=== PATIENT | female | born 1940 | race Caucasian/White ===

== ENCOUNTER → 2017-07-14 | Outpatient (CLI) | payer OTHER ==
[~2017-07-14] MED LIST: ASPCH81X PO; CALC500C70 PO; CHOL1CAP27 PO; CHOL400C7 PO; CYAN100T6 PO; CYAN30SU SL; CYM/30 PO; GABA-113 PO; GARL10007 PO; GARL400T9; GLC/500 PO; IRBE-41 PO; IRBE-43 PO; LEVO50TA6 PO; MAGNTAB4 PO; MULT-506 PO; OMEG10007 PO; POTA2.5T PO; PRLSR20 PO
--- NOTE | 2017-07-14 11:43 | DIAGNOSTIC IMAGING REPORT ---
BILATERAL LOWER EXTREMITY VENOUS DOPPLER HISTORY: DIABETIC NEUROLOGIC DIFFICULTY, FOOT PAIN COMPARISON STUDY: None. FINDINGS: There is normal compressibility, flow, and augmentation within the bilateral lower extremity deep venous systems. There is a 5.7 x 4.1 x 3.2 cm right popliteal cyst. This contains a few punctate internal echoes. IMPRESSION: No DVT within the right or left lower extremity. Electronically signed by: Torsten Pierre M.D. 07/14/2017 11:41 AM Dictated Date/Time: 07/14/2017 11:41 AM
== END | disposition home or self-care (01) ==
LOC: C.ULTRBC 10:58
PROVIDERS: ATTEND Orthopaedic Surgery Sports Medicine
DX: E13.49 Other specified diabetes mellitus with other diabetic neurological complication (principal); M79.672 Pain in left foot

== ENCOUNTER → 2017-09-04 | Day surgery (SDC) | payer OTHER ==
[2017-08-10 09:48] VITALS: BMI 27.0
--- NOTE | 2017-08-10 10:31 | PAT Medication Instructions ---
Service Date Aug 10, 2017. Current Home Medication List Aspirin (Aspirin Chewable), 81 MG PO QPM Calcium/Vitamin D (Os-Nam 500 Plus D), 1 TAB PO QAM Cholecalciferol (D3), 1 CAP PO QAM Cyanocobalamin (B-12), 1 DOSE SL QAM Duloxetine HCl (Cymbalta), 1 CAP PO QAM Fish Oil ([place]-3), 1 CAP PO QAM Gabapentin (Neurontin), 2 TAB PO BID Garlic (Garlic), 1 CAP PO QAM Irbesartan-Hydrochlorothiazide (Avalide), 1 TAB PO QAM Levothyroxine Sodium (Levothyroxine Sodium), 1 TAB PO QAM Metformin Hcl (Glucophage), 500 MG PO BID Multivitamin (Multivitamin), 1 TAB PO QAM Omeprazole (Prilosec), 20 MG PO QAM Potassium Gluconate (Potassium Gluconate), 1 TAB PO QAM Medication Instructions For Your Scheduled Surgery - Hold the following medications 2 weeks prior to surgery: Garlic (Garlic), 1 CAP PO QAM Fish Oil ([place]-3), 1 CAP PO QAM - Hold the following medications 48 hours prior to surgery: Metformin Hcl (Glucophage), 500 MG PO BID - Hold the following medications the morning of surgery: Multivitamin (Multivitamin), 1 TAB PO QAM Calcium/Vitamin D (Os-Nam 500 Plus D), 1 TAB PO QAM Cholecalciferol (D3), 1 CAP PO QAM Cyanocobalamin (B-12), 1 DOSE SL QAM Irbesartan-Hydrochlorothiazide (Avalide), 1 TAB PO QAM Potassium Gluconate (Potassium Gluconate), 1 TAB PO QAM - Take the following medications the morning of surgery with a sip of water OTHERWISE NOTHING TO EAT OR DRINK AFTER MIDNIGHT: Duloxetine HCl (Cymbalta), 1 CAP PO QAM Gabapentin (Neurontin), 2 TAB PO BID Levothyroxine Sodium (Levothyroxine Sodium), 1 TAB PO QAM Omeprazole (Prilosec), 20 MG PO QAM - Take the following medications as scheduled the night before surgery: Gabapentin (Neurontin), 2 TAB PO BID Aspirin (Aspirin Chewable), 81 MG PO QPM If you have any questions please call us at [phone] or [phone] or [phone]
[2017-08-10 11:10] LABS: BASO % 0.9 %; BASO ABS # 0.05 K/uL (0-0.2); COMPLETE YES; EOS % 2.9 %; IG% 0.2 %; LYMPH % 31.4 %; LYMPH ABS # 1.82 K/uL (1.2-3.4); MEAN CELL VOLUME 88.9 fL (80-100); MEAN CORPUSCULAR HGB CONC 33.8 g/dl (32-36); MEAN PLATELET VOLUME 9.4 fL (7.4-10.4); MONO % 7.1 %; NEUT % 57.5 %; PLATELET COUNT 263 K/uL (130-400); WHITE BLOOD COUNT 5.79 K/uL (4.8-10.8)
[2017-08-10 11:12] LABS: URINE APPEARANCE CLEAR (CLEAR); URINE BILIRUBIN NEG (NEG); URINE COLOR YELLOW; URINE NITRITE NEG (NEG); URINE PH 5.5 (4.5-7.5); URINE SPECIFIC GRAVITY 1.014 (1.000-1.030); UROBILINOGEN NEG (NEG)
[2017-08-10 11:17] LABS: MANUAL MICROSCOPIC REQUIRED? NO; REVIEW REQ? NO
--- NOTE | 2017-08-10 11:22 | DIAGNOSTIC IMAGING REPORT ---
CHEST 2 VIEWS ROUTINE HISTORY: 77 years-old Female PAT preadmission exam without acute chest complaints reported. COMPARISON: Chest radiographs 09/08/2013 TECHNIQUE: PA and lateral views of the chest FINDINGS: Cardiomediastinal and hilar silhouettes are within normal limits. There is atherosclerosis of the aorta. No pneumothorax or pleural effusion or lobar airspace consolidation. Subsegmental lingular atelectasis is again seen. Lungs are mildly hyperinflated with diaphragm flattening. Degenerative changes are seen within the spine and shoulders. IMPRESSION: No acute cardiopulmonary process. The above report was generated using voice recognition software. It may contain grammatical, syntax or spelling errors. Electronically signed by: Robert Hoffman M.D. 08/10/2017 11:21 AM Dictated Date/Time: 08/10/2017 11:20 AM
[2017-08-10 11:27] LABS: ESTIMATED AVERAGE GLUCOSE 126 mg/dl; HA1C FLAG Normal (Normal); PARTIAL THROMBOPLASTIN RATIO 1.4; PROTHROMBIN TIME (PATIENT) 10.3 SECONDS (9.0-12.0)
[2017-08-10 11:51] LABS: BUN/CREATININE RATIO 19.1 (10-20); CALCIUM 9.6 mg/dl (8.5-10.1); CREATININE 1.1 mg/dl (0.60-1.20); POTASSIUM 4.3 mmol/L (3.5-5.1)
[~2017-09-04] VITALS: Ht 165.1 cm; Wt 75.9 kg
[~2017-09-04] MED LIST changes: +ATROPINE SULFATE 0.1 MG/ML 5ML SYR IV PRN; +BACITRACIN 50000 UNIT VIAL IR ONE; +BUPIVACAINE 0.25% 30 ML VIAL ONE; +CEFAZOLIN 2000MG IV PUSH 10 ML IV SCH; -CHOL400C7 PO; -CYAN100T6 PO; +DEXAMETHASONE SOD INJ 4 MG/ML VIAL ONE; +ENOX40IN SQ; +EpHEDrine SULFATE INJ 50 MG/ML AMP IV PRN; +EpHEDrine SULFATE INJ 50 MG/ML AMP ONE; +EpINEphrine INJ 1MG/ML AMP 1 MG/ML AMP ONE; +FENTANYL CITRATE INJ 50 MCG/1 ML 2 ML VIAL IV PRN; +FENTANYL CITRATE INJ 50 MCG/1 ML 2 ML VIAL ONE; -GARL400T9; +HYDROmorphone INJ 1 MG/ML SYR IV PRN; -IRBE-43 PO; +LACTATED RINGER'S 1000ML 1,000 ML IV SCH; +LIDOCAINE HCL 2% 2 ML VIAL (20MG/ML) ONE; -MAGNTAB4 PO; +MIDAZOLAM HCL 1 MG/ML 2ML VIAL ONE; +ONDANSETRON INJ 2 MG/ML 2 ML VIAL IV PRN; +ONDANSETRON INJ 2 MG/ML 2 ML VIAL ONE; +OXYC-57 PO; +OXYCODONE/ACETAMINOPHEN 5-325 TAB PO PRN; +PHENYLEPHRINE 100MCG/ML 5ML SYR ONE; +PROM25TA9 PO; +PROMETHAZINE HCL INJ 6.25 MG in SODIUM CHLORIDE 0.9% 50ML 50 ML IV PRN; +PROPOFOL IV EMULSION 10 MG/ML 20 ML VIAL IV ONE
--- NOTE | 2017-09-04 00:13 | HISTORY & PHYSICAL EXAMINATION ---
DATE OF ADMISSION: 09/04/2017 SUBJECTIVE AND CHIEF COMPLAINT: Left foot pain. HISTORY OF PRESENT ILLNESS: This is a patient who has had a long history of left foot pain and deformity which has worsened over previous years. She has been treated conservatively; however, she has failed all conservative management. She is now being set up for surgical treatment with mid foot fusions. PAST MEDICAL HISTORY: Hypercholesterolemia, sleep apnea, diabetes, history of low back and neck problems, acid reflux. SOCIAL HISTORY: The patient denies alcohol and tobacco use. PAST SURGICAL HISTORY: Back surgery x3, cataract surgery and hysterectomy. ALLERGIES: No known drug allergies. CURRENT MEDICATIONS: Gabapentin 300 mg 1 p.o. b.i.d., aspirin 81 mg p.o. daily, levothyroxine 50 mcg 1 p.o. daily, omeprazole 20 mg 1 p.o. daily, potassium supplement daily, irbesartan/HCTZ 150/12.5 mg one-half tab p.o. daily, garlic supplement p.o. daily, vitamin D3 1000 International Units p.o. daily, vitamin B12 500 mcg p.o. daily, multivitamin p.o. daily, fish oil supplement 200 mg daily, duloxetine 30 mg p.o. daily, metformin 500 mg 1 p.o. b.i.d., Keflex 500 mg q.i.d. and Bactrim DS p.o. b.i.d. FAMILY HISTORY: Noncontributory. OBJECTIVE PHYSICAL EXAMINATION: GENERAL: The patient is alert and oriented x3. She is in no acute distress. She is a well-dressed, well-nourished 77-year-old female. Her affect is appropriate. CARDIOVASCULAR: Heart has a regular rhythm and rate without murmurs. LUNGS: Clear to auscultation bilateral. LYMPHATICS: No evidence of any swollen lymph nodes. MUSCULOSKELETAL: The patient has an antalgic gait favoring the left lower extremity. On inspection of the left lower extremity, the patient has a pes planus deformity with an abducted mid foot. There appears to be bony exostosis at the medial aspect of the mid foot. With palpation, she has tenderness along the first and second tarsometatarsal joints, also along the second toe. She has decreased range of motion and strength secondary to pain. Dorsalis pedis, posterior tib pulse +1/4. Cap refill less than 2 seconds. SKIN: There are no scars, rashes or ulcers noted. X-RAY EXAMINATION: Multiple views of the left foot demonstrate severe osteoarthritic changes of the first and second tarsometatarsal joints, also the first navicular cuneiform joint. The patient noted to have a second hammertoe. ASSESSMENT AND DIAGNOSES: 1. Left mid foot osteoarthritis. 2. Pes planus. 3. Left foot second hammertoe. PLAN: Above assessment was discussed with the patient. At this time, it was recommended the patient undergo a left foot medial column reconstruction with fusion of the first tarsometatarsal joint, fusion of the second tarsometatarsal joint, fusion of the first navicular cuneiform joint, possible second navicular cuneiform joint fusion, possible talonavicular joint fusion and also a second toe DuVries arthroplasty. All potential risks, benefits, complications, alternatives and rehab have been discussed with the patient, and at this time, she wishes to proceed with the surgery as indicated. She will be scheduled for the surgery on 09/04/2017.
--- NOTE | 2017-09-04 07:47 | History & Physical Bridge Note ---
H&P Re-Evaluation Bridge Note: I have examined the patient, reviewed the History & Physical and in the interval since the performance of the History & Physical I have noted the following changes of clinical significance: No changes noted
[2017-09-04 07:58] VITALS: BP 157/83; PULSE 83; TEMP 36.7; O2SAT 97; Ht 165.1 cm; Wt 75.9 kg
[2017-09-04 08:53] LABS: PARTIAL THROMBOPLASTIN RATIO 1.3; PROTHROMBIN TIME (PATIENT) 10.5 SECONDS (9.0-12.0)
--- NOTE | 2017-09-04 13:00 | Discharge Instructions ---
Discharge Instructions Date of Service Sep 04, 2017. Admission Reason for Admission: Left Ankle/Foot Osteoarthritis, Hammer Toe(S) Discharge Discharge Diagnosis / Problem: left foot osteoarthritis Discharge Goals Goal(s): Decrease discomfort, Improve function Activity Recommendations Activity Limitations: per Instructions/Follow-up section Weightbearing Status: Left non-weightbearing . Instructions / Follow-Up Instructions / Follow-Up ACTIVITY RECOMMENDATIONS: Limitations: No weight bearing to affected limb at all times. SPECIAL CARE INSTRUCTIONS: * Start Lovenox (blood thinning medication) on 09.05.17. You should take it for 14 days and any continuation will be discussed at your first post operative visit. * Some drainage onto the dressing is normal and is no cause for alarm. * Some swelling is natural especially after walking. * When resting, keep your foot elevated above the level of your heart. * Call [facility] if you notice: -Increased drainage -Fever over 101 degrees F -Severe constant pain BANDAGE: * Leave bandage/cast in place unless otherwise directed. * Keep bandage/cast dry at all times. FOLLOW UP VISIT WITH DR. RIVERA If appointment is not already scheduled: Please call [facility] after you get home today to schedule a follow-up appointment for [address] Rivera at . Current Hospital Diet Patient's current hospital diet: Discharge Diet Recommended Diet: Regular Diet Procedures Procedures Performed: Left Foot Medial Column Fusion 1st Tarsometatarsal Joint; Medial Column Fusion 2nd Tarsometatarsal Joint; 1st Navicular-Cuneiform, 2nd Navicular-Cuneiform;Duvries Procedure; Percutaneous Achillies Tendon Lengthening Pending Studies Studies pending at discharge: no Laboratory Results Hemoglobin A1c Test 08/10/17 10:52 Range/Units Estimated Average Glucose 126 mg/dl Hemoglobin A1c 6.0 H 4.5-5.6 % Medical Emergencies . Who to Call and When: Medical Emergencies: If at any time you feel your situation is an emergency, please call 911 immediately. . Non-Emergent Contact Non-Emergency issues call your: Surgeon Call Non-Emergent contact if: temperature is above 101, your pain is not controlled, your pain is worsening . "Provider Documentation" section prepared by Delfin Scott. . VTE Core Measure Inpt VTE Proph given/why not?: SCD's
--- NOTE | 2017-09-04 13:02 | [facility] Post Operative Brief Note ---
Immediate Operative Summary Operative Date Sep 04, 2017. Pre-Operative Diagnosis Left mid foot osteoarthritis; Medial Column collapse; Pes planus; Left foot second hammertoe Post-Operative Diagnosis Left midfoot Medial collapse; DJD 1/2/3 TMT Joints; DJD 1/2/3 Naviculocuneiform Joints; DJD 1/2/3 Intercuneiform Joints; Achilles contracture; 2nd Hammertoe;Talonavicular Exostoses; Painful Pes Planus Procedure(s) Performed Left Foot Medial Column Reconstruction; Fusions 1/2/3 Tarsometatarsal Joints; 1st/2nd/3rd Navicular-Cuneiform Fusions; Fusions 1st/2nd/3rd Intercuneiform Joints; Cheilectomy Talonavicular Joint; Second Toe Duvries Arthroplasty; Percutaneous Achillies Tendon Lengthening Surgeon Dr. Cordero Crane Hooker Surgeon(s) Delfin Scott PA-C Estimated Blood Loss 15 ml Findings See Dict Specimens none per surgeon Drains None Anesthesia GLMA w/ popliteal block Complication(s) None Disposition Recovery Room / PACU
--- NOTE | 2017-09-04 13:26 | DIAGNOSTIC IMAGING REPORT ---
L FOOT MIN 3 VIEWS ROUTINE HISTORY: 77 years-old Female post op postoperative exam. ORIF of the left foot COMPARISON: Spot fluoroscopic images of the left foot of same day. TECHNIQUE: 3 views of the left foot FINDINGS: Fine bony detail obscured by overlying casting material. ORIF changes of the first and second tarsal metatarsal joints, navicular and cuneiform articulations with satisfactory alignment. There is a K wire present traversing the second digit within the distal, middle and proximal phalanx traversing the metatarsal head with distal tip medial to the metatarsal diaphysis. Moderate degenerative changes are noted throughout the midfoot and forefoot. There is spurring about the calcaneus. IMPRESSION: Postsurgical changes of the left foot as above. The above report was generated using voice recognition software. It may contain grammatical, syntax or spelling errors. Electronically signed by: Robert Hoffman M.D. 09/04/2017 1:25 PM Dictated Date/Time: 09/04/2017 1:22 PM
--- NOTE | 2017-09-04 13:55 | Anesthesiology Progress Note ---
Anesthesia Post Op Note Date & Time Sep 04, 2017 at 13:55 Vital Signs Pain Intensity: 0 Vital Signs Past 12 Hours Date Time Temp Pulse Resp B/P (MAP) Pulse Ox O2 Delivery O2 Flow Rate FiO2 09/04/17 13:14 36.7 102 24 134/88 (90) 93 Room Air Oxymask 09/04/17 12:57 107 14 09/04/17 12:57 107 14 97 09/04/17 12:56 127/62 09/04/17 12:52 102 12 96 09/04/17 12:52 101 12 09/04/17 12:51 115/69 09/04/17 12:47 92 20 09/04/17 12:47 92 20 98 09/04/17 12:46 104/57 09/04/17 12:42 91 109/58 96 09/04/17 12:42 36.2 92 16 109/58 97 Oxymask 8 09/04/17 12:42 91 09/04/17 07:58 36.7 83 20 157/83 (107) 97 Room Air Notes Mental Status: alert / awake / arousable, participated in evaluation Pt Amnestic to Procedure: Yes Nausea / Vomiting: adequately controlled Pain: adequately controlled Airway Patency, RR, SpO2: stable & adequate BP & HR: stable & adequate Hydration State: stable & adequate Anesthetic Complications: no major complications apparent Block working in pacu
[2017-09-04 14:00] VITALS: BP 119/70; PULSE 91; TEMP 36.7; O2SAT 94
--- NOTE | 2017-09-04 14:17 | OPERATIVE REPORT ---
DATE OF OPERATION: 09/04/2017 PREOPERATIVE DIAGNOSES: 1. Left foot medial column collapse. 2. Degenerative joint disease of the first, second, and third tarsometatarsal joints. 3. Degenerative joint disease of the first, second and third naviculocuneiform joints. 4. Degenerative joint disease of the first, second and third intercuneiform joints. 5. Achilles contracture. 6. Second hammertoe. POSTOPERATIVE DIAGNOSES: 1. Left foot medial column collapse. 2. Degenerative joint disease of the first, second, and third tarsometatarsal joints. 3. Degenerative joint disease of the first, second and third naviculocuneiform joints. 4. Degenerative joint disease of the first, second and third intercuneiform joints. 5. Achilles contracture. 6. Second hammertoe. 7. Talonavicular exostosis PROCEDURE: 1. Left foot medial column reconstruction with Arthrex locked plating. 2. Mid foot fusions of the first, second, and third tarsometatarsal joints. 3. Mid foot fusions of the first, second and third naviculocuneiform joints. 4. Mid foot fusions of the first, second and third intercuneiform joints. 5. Second toe DuVries arthroplasty. 6. Percutaneous tendon Achilles lengthening. 7. Talonavicular cheilectomy. SURGEON: Jacob Cordero DO. PRICER: Delfin Scott PA-C, who was present for patient positioning, sterile prep and drape, management of retractors and instruments. He was present through the critical portions of the case including wound closure, application of sterile dressing and transport of the patient to recovery. ANESTHESIA: General LMA with popliteal block. SPECIMENS: None. DRAINS: None. COMPLICATIONS: None. BLOOD LOSS: 15 mL PERTINENT HISTORY: This is a 77-year-old female who has had progressive chronic and worsening degenerative arthritis throughout the left mid foot and arch. Over the last several years she has noticed progressive worsening collapse of the arch with severe pain and disability. She had difficulty with activities of daily living with any type of weightbearing. Shoe wear has been very difficult to fit and she failed the use of anti-inflammatories, shoe inserts, custom orthotics, steroid injections, use of a brace and failure of physician recommended home exercises. Radiographs and CT scan demonstrates severe mid foot collapse of the left foot with severe degenerative arthritis of the mid foot involving the first, second and third tarsometatarsal, first, second and third naviculocuneiform, the first, second and third intercuneiform joints with a progressive pes planus. The patient had been scheduled for surgery as indicated. All potential risks, benefits, complications, alternatives, rehab, potential for incomplete relief of symptoms, need for further surgery, DVT, PE, , persistent pain, swelling, scarring, weakness, neurovascular injury, wound complications, hardware failure, nonunion, malunion were discussed with the patient. The patient decided to proceed with the procedure as indicated. DESCRIPTION OF PROCEDURE: After popliteal block was administered, the patient was taken to the operative suite, placed supine on the operating room table. After reviewing consent and identification of proper operative site, patient anesthetized, LMA was placed. Tourniquet was placed high on the left thigh over cast padding. Left lower extremity was then sterilely prepped and draped in usual fashion, elevated and exsanguinated with an Esmarch bandage, tourniquet inflated to 325 mmHg. Next, the foot was held in neutral dorsiflexion and a 3-part percutaneous 11 blade scalpel incision was made to perform a fractional lengthening of the Achilles tendon. After this percutaneous fractional lengthening of the Achilles tendon was completed, these incisions were then irrigated with sterile normal saline followed by closure of these incisions with skin satya. Next, the 15 blade scalpel was used to make an incision along the medial aspect of the left hindfoot extending into the forefoot from the skin inferior to the medial malleolus extending over the medial column of the foot to the first metatarsal head. Next, the skin was then incised to the level of subcutaneous tissue. Meticulous hemostasis was achieved with electrocautery followed by retraction and protection of the plantar medial branch of the saphenous vein. Next, the retinaculum was then incised along the skin incision revealing the tibialis anterior, which was then whipstitched with a #2 Ultrabraid suture both proximal and distal. The tendon was then cut between the 2 whipstitched heads of the tendon and then retracted and protected. Next, the joint capsule was then incised from the first naviculocuneiform to the first tarsometatarsal and then extending over the medial aspect of the first metatarsal. Next, the joint capsules were then carefully sharply elevated superiorly and inferiorly with 15 blade scalpel revealing the medial joints. Large osteophytes were then resected using a large Valentines saw over the first tarsometatarsal and the first naviculocuneiform joint. Next, the Aguilar elevator was then used to elevate the soft tissue and the neurovascular bundle between the first and second metatarsals. A Hohmann retractor was placed superiorly and another was placed inferiorly. Next, the first tarsometatarsal and second tarsometatarsal joints were then opened with a 15 blade scalpel followed by curettage of the joint with small curette and rongeur. Next, the third tarsometatarsal joint was then opened and then similarly prepared using a small curette and rongeur. Next, the intercuneiform joints were then carefully incised with 15 blade scalpel and the joint was then prepped using curettage with a small curette and rongeur. We irrigated copiously with sterile normal saline. Next, the first, second, and third naviculocuneiform joints were then opened with a 15 blade scalpel and then prepared using a curette and rongeur until the subchondral bone was then identified. This was then followed by use of a Valentines saw to make a corrective osteotomy cut of the first tarsometatarsal joint slightly plantarflexing the joint surface and then the final irrigation with sterile normal saline was performed followed by provisional pinning of the joints in corrected alignment with plantar flexion of the first ray and medial column and correction of the abductus deformity which had occurred. Upon viewing under AP and lateral C-arm projections medial arch pattern was restored and abductus deformity was resolved. Next, Arthrex medial column reconstruction plate was then provisionally pinned to the medial aspect of the medial column and a single titanium fully threaded 3.5 mm cancellous screw was then drilled out the medial column from the first metatarsal into the first cuneiform and into navicular bone under live fluoroscopic assistance. This compressed and stabilized the medial column. Next, a medial column plate was then fixed with nonlocking screws x2 and then after satisfactory alignment and fixation was achieved with axial compression performed manually, the locking screws then placed to lock the medial column including the first metatarsal, first cuneiform and the navicular including the second and third cuneiforms, the first, second and third naviculocuneiform and the first, second and third metatarsals into the fusion construct as noted above. Next, alignment and fixation was then assessed using C-arm fluoroscopy. Stable mid foot fusions in multiple locations with medial column satisfactory reconstructed. Next, a bone graft removed from the drill bit and some of the resected osteophytes were also retrieved in place into the mid foot fusion sites. Also noted to be a large exostosis of the talonavicular joint, which was then resected with a rongeur. Therefore, after this cheilectomy had been performed, this residual bone was then packed into the mid foot fusion sites after it was morselized with a rongeur. The tibialis anterior was then reapproximated using #2 Ultrabraid sutures and the medial periosteum and joint capsule was then closed using 2-0 Vicryl. This was used to close over the plate. Next, the dermis was closed using buried interrupted 3-0 Vicryl and skin was then closed using 4-0 nylon sutures. Next, a 15 blade scalpel was used to make a transverse incision over the second toe PIP joint. This incision was deepened through the skin, extensor mechanism and capsule. Small ellipse of tissue was then excised sharply with a 15 blade scalpel. The medial and lateral collateral ligaments were sacrificed with a 15 blade scalpel and then using a bone biting rongeur, distal aspect of the proximal phalanx and second toe was then resected. The wound was irrigated with sterile normal saline and a 0.045 inch K wire was driven out the tip of the second toe in a retrograde fashion, placed under live fluoroscopic assistance into the proximal phalanx and second metatarsal. The residual aspect of the pin was then bent, cut and capped with a small Jergens ball. The incision was then irrigated once again with sterile normal saline followed by closure with 4-0 nylon suture. Next, a sterile compressive forefoot dressing was applied as well as a bulky Luis Denny plaster splint held in neutral dorsiflexion. The tourniquet was released. The patient was awakened and taken to recovery in stable condition. I attest to the content of the Intraoperative Record and any orders documented therein. Any exception s are noted below.
[2017-09-04 14:30] VITALS: BP 114/60; PULSE 93; TEMP 36.6; O2SAT 97
--- NOTE | 2017-09-04 14:30 | DIAGNOSTIC IMAGING REPORT ---
INTRAOPERATIVE RADIOGRAPHS CLINICAL HISTORY: Left foot surgery. Fluoroscopy time: 44 seconds. FINDINGS: 2 spot fluoroscopic views of the left foot are presented. A pin transfixes the second toe. There is extensive postoperative change identified along the medial aspect of the foot involving the tarsal bones as well as the first and second metatarsals. A buttress plate is present along the medial tarsometatarsal junction with numerous cortical lag screws in place. The orthopedic hardware is grossly intact. IMPRESSION: Extensive postoperative change in the left foot as above. See operative report for detailed findings. Electronically signed by: Brigido Valiente M.D. 09/04/2017 2:29 PM Dictated Date/Time: 09/04/2017 2:27 PM
[2017-09-04 15:00] VITALS: BP 121/73; PULSE 92; TEMP 36.6; O2SAT 96
== END | disposition home or self-care (01) ==
LOC: C.ACU 07:06
PROVIDERS: ATTEND Orthopaedic Surgery Sports Medicine
DX: M19.072 Primary osteoarthritis, left ankle and foot (principal); M21.42 Flat foot [pes planus] (acquired), left foot; M20.42 Other hammer toe(s) (acquired), left foot; M67.02 Short Achilles tendon (acquired), left ankle; M85.872 Other specified disorders of bone density and structure, left ankle and foot; E78.00 Pure hypercholesterolemia, unspecified; E11.9 Type 2 diabetes mellitus without complications; K21.9 Gastro-esophageal reflux disease without esophagitis; G47.30 Sleep apnea, unspecified; Z90.710 Acquired absence of both cervix and uterus; Z98.41 Cataract extraction status, right eye; I10 Essential (primary) hypertension; E03.9 Hypothyroidism, unspecified; Z86.718 Personal history of other venous thrombosis and embolism; Z98.1 Arthrodesis status; Z85.820 Personal history of malignant melanoma of skin; Z79.82 Long term (current) use of aspirin; K44.9 Diaphragmatic hernia without obstruction or gangrene

== ENCOUNTER 2017-11-13 20:44 | Inpatient (IN) | payer OTHER ==
[~2017-11-13] VITALS: Ht 162.6 cm; Wt 75.0 kg
[~2017-11-13 20:44] MED LIST changes: -ATROPINE SULFATE 0.1 MG/ML 5ML SYR IV PRN; -BACITRACIN 50000 UNIT VIAL IR ONE; -BUPIVACAINE 0.25% 30 ML VIAL ONE; -CEFAZOLIN 2000MG IV PUSH 10 ML IV SCH; -DEXAMETHASONE SOD INJ 4 MG/ML VIAL ONE; -ENOX40IN SQ; -EpHEDrine SULFATE INJ 50 MG/ML AMP IV PRN; -EpHEDrine SULFATE INJ 50 MG/ML AMP ONE; -EpINEphrine INJ 1MG/ML AMP 1 MG/ML AMP ONE; -FENTANYL CITRATE INJ 50 MCG/1 ML 2 ML VIAL IV PRN; -FENTANYL CITRATE INJ 50 MCG/1 ML 2 ML VIAL ONE; -HYDROmorphone INJ 1 MG/ML SYR IV PRN; -LACTATED RINGER'S 1000ML 1,000 ML IV SCH; -LIDOCAINE HCL 2% 2 ML VIAL (20MG/ML) ONE; -MIDAZOLAM HCL 1 MG/ML 2ML VIAL ONE; -ONDANSETRON INJ 2 MG/ML 2 ML VIAL IV PRN; -ONDANSETRON INJ 2 MG/ML 2 ML VIAL ONE; -OXYCODONE/ACETAMINOPHEN 5-325 TAB PO PRN; -PHENYLEPHRINE 100MCG/ML 5ML SYR ONE; -PROMETHAZINE HCL INJ 6.25 MG in SODIUM CHLORIDE 0.9% 50ML 50 ML IV PRN; -PROPOFOL IV EMULSION 10 MG/ML 20 ML VIAL IV ONE
[2017-11-13] MEDS ORDERED: PIPERACILLIN/TAZOBACTAM 3.375 GM/100ML D5W IV STA (21:00)
[2017-11-13] MEDS ORDERED: SODIUM CHLORIDE 0.9% 500ML 500 ML IV STA (21:00)
[2017-11-13] MEDS ORDERED: VANCOMYCIN INJ 1,500 MG in SODIUM CHLORIDE 0.9% 500ML 500 ML IV STA (21:00)
--- NOTE | 2017-11-13 21:17 | EMERGENCY ROOM VISIT NOTE ---
History Report prepared by Selina: Martell Elias Under the Supervision of: Dr. Art Lunsford M.D. First contact with patient: 20:52 Chief Complaint: INFECTION Stated Complaint: L FOOT INFECTION History of Present Illness The patient is a 77 year old female who presents to the Emergency Room with complaints of worsening left foot infection that began 2 days ago. She rates the pain an 8/10 in severity. She states that she had reconstructive surgery consisting of left foot osteoarthritis, pes planus, and left foot second hammertoes [address] Consuelo [place] [facility]. Patient has associated symptoms of pus, erythema, fever (did not take temperature) and swelling. She denies being on blood thinners. She takes a baby aspirin daily. Patient adds that she had her left foot sutures removed 6 weeks ago. She adds that the incision site opened up 2 days ago. She denies nausea, vomiting, chest pain, and painful urination. She states that she took ibuprofen for her pain but it did not resolve the symptoms. Patient is diabetic and states her levels were 134 this morning. Source of History: patient Onset: 2 days ago Position: foot (left) Symptom Intensity: 8/10 Timing: worsening Associated Symptoms: + fevers, No chest pain, No nausea, No vomiting Note: Patient has swelling, pus, and erythema. She denies painful urination. Review of Systems See HPI for pertinent positives and negatives. A total of ten systems were reviewed and were otherwise negative. Past Medical & Surgical Medical Problems: (1) Diabetes (2) Foot infection (3) Osteoarthritis of left foot (4) Pes planus (5) Vertigo Surgical Problems: (1) Postoperative state Family History No pertinent family medical history. Social History Smoking Status: Never Smoker Marital Status: Housing Status: lives with family Occupation Status: retired Current/Historical Medications Scheduled Aspirin (Aspirin Chewable), 81 MG PO QPM Calcium/Vitamin D (Os-[place]am 500 Plus D), 1 TAB PO QAM Cholecalciferol (D3), 1 CAP PO QAM Cyanocobalamin (B-12), 1 DOSE SL QAM Duloxetine HCl (Cymbalta), 1 CAP PO QAM Fish Oil ([place]-3), 1 CAP PO QAM Gabapentin (Neurontin), 2 TAB PO BID Garlic (Garlic), 1 CAP PO QAM Irbesartan-Hydrochlorothiazide (Avalide), 0.5 TAB PO QAM Levothyroxine Sodium (Levothyroxine Sodium), 1 TAB PO QAM Metformin Hcl (Glucophage), 500 MG PO BID Multivitamin (Multivitamin), 1 TAB PO QAM Omeprazole (Prilosec), 20 MG PO QAM Potassium Gluconate (Potassium Gluconate), 1 TAB PO QAM Scheduled PRN Promethazine Hcl (Phenergan), 25 MG PO Q6H PRN for Nausea Allergies Coded Allergies: No Known Allergies (Unverified , 09/04/17) Physical Exam Vital Signs Date Time Temp Pulse Resp B/P (MAP) Pulse Ox O2 Delivery O2 Flow Rate FiO2 11/13/17 21:52 102 11/13/17 21:43 97 110/91 11/13/17 20:46 36.7 107 18 137/74 95 Room Air Physical Exam GENERAL: Awake, alert, in no distress HENT: Normocephalic, atraumatic. Oropharynx unremarkable. EYES: Normal conjunctiva. Sclera non-icteric. NECK: Supple. No nuchal rigidity. FROM. No JVD. RESPIRATORY: Clear to auscultation. CARDIAC: Regular rate, normal rhythm. Extremities warm and well perfused. Pulses equal. ABDOMEN: Soft, non-distended. No tenderness to palpation. No rebound or guarding. No masses. RECTAL: Deferred. MUSCULOSKELETAL: Chest examination reveals no tenderness. The back is symmetrical on inspection without obvious abnormality. There is no CVA tenderness to palpation. No joint edema. LOWER EXTREMITIES: Left foot - 10cm area of erythema and warmth. No crepitus. 5cm wound dehiscence with purulent eschar. Calves are equal size bilaterally and non-tender. No edema. No discoloration. NEURO: Normal sensorium. No sensory or motor deficits noted. SKIN: No rash or jaundice noted. Medical Decision & Procedures ER Provider Diagnostic Interpretation: Radiology results as stated below per my review and radiologist interpretation: L FOOT MIN 3 VIEWS ROUTINE CLINICAL HISTORY: cellulitis, s/p foot surgery COMPARISON: 09/04/2017 DISCUSSION: Annual removal of the pin traversing the phalanges and metatarsals the second toe. Extensive operative changes consistent with partial fusion of the tarsal and metatarsal region. Mild soft tissue edema. No well-defined destructive process. There is no evidence for soft tissue swelling. IMPRESSION: Postoperative and degenerative change. Mild soft tissue edema. No well-defined acute bony abnormality. The above report was generated using voice recognition software. It may contain grammatical, syntax or spelling errors. Electronically signed by: Hayder Miller M.D. 11/13/2017 9:23 PM Laboratory Results 11/13/17 21:15 Red Blood Count 4.95, Mean Corpuscular Volume 86.9, Mean Corpuscular Hemoglobin 29.1, Mean Corpuscular Hemoglobin Concent 33.5, Mean Platelet Volume 9.6, Neutrophils (%) (Auto) 78.7, Lymphocytes (%) (Auto) 13.1, Monocytes (%) (Auto) 7.3, Eosinophils (%) (Auto) 0.4, Basophils (%) (Auto) 0.3, Neutrophils # (Auto) 12.71, Lymphocytes # (Auto) 2.12, Monocytes # (Auto) 1.18, Eosinophils # (Auto) 0.07, Basophils # (Auto) 0.05 11/13/17 21:15 Test 11/13/17 21:15 11/13/17 21:33 White Blood Count 16.17 K/uL (4.8-10.8) Red Blood Count 4.95 M/uL (4.2-5.4) Hemoglobin 14.4 g/dL (12.0-16.0) Hematocrit 43.0 % (37-47) Mean Corpuscular Volume 86.9 fL (80-100) Mean Corpuscular Hemoglobin 29.1 pg (25-34) Mean Corpuscular Hemoglobin Concent 33.5 g/dl (32-36) Platelet Count 266 K/uL (130-400) Mean Platelet Volume 9.6 fL (7.4-10.4) Neutrophils (%) (Auto) 78.7 % Lymphocytes (%) (Auto) 13.1 % Monocytes (%) (Auto) 7.3 % Eosinophils (%) (Auto) 0.4 % Basophils (%) (Auto) 0.3 % Neutrophils # (Auto) 12.71 K/uL (1.4-6.5) Lymphocytes # (Auto) 2.12 K/uL (1.2-3.4) Monocytes # (Auto) 1.18 K/uL (0.11-0.59) Eosinophils # (Auto) 0.07 K/uL (0-0.5) Basophils # (Auto) 0.05 K/uL (0-0.2) RDW Standard Deviation 44.1 fL (36.4-46.3) RDW Coefficient of Variation 13.9 % (11.5-14.5) Immature Granulocyte % (Auto) 0.2 % Immature Granulocyte # (Auto) 0.04 K/uL (0.00-0.02) Anion Gap 8.0 mmol/L (3-11) Estimated GFR () 51.9 Estimated GFR (Non- 44.8 BUN/Creatinine Ratio 21.9 (10-20) Calcium Level 9.7 mg/dl (8.5-10.1) Total Bilirubin 0.6 mg/dl (0.2-1) Direct Bilirubin 0.2 mg/dl (0-0.2) Aspartate Amino Transf (AST/SGOT) 23 U/L (15-37) Alanine Aminotransferase (ALT/SGPT) 35 U/L (12-78) Alkaline Phosphatase 152 U/L (45-117) Total Protein 7.8 gm/dl (6.4-8.2) Albumin 3.9 gm/dl (3.4-5.0) Lipase 521 U/L (73-393) Lactic Acid Level 2.0 mmol/L (0.4-2.0) Laboratory results reviewed by me Medications Administered Medications (Trade) Dose Ordered Sig/Shannon Route Start Time Stop Time Status Last Admin Dose Admin Vancomycin HCl 1500 mg/Sodium Chloride 530 ml @ 200 mls/hr ONE STAT IV 11/13/17 21:00 11/13/17 23:38 DC 11/13/17 21:00 200 MLS/HR Piperacillin Sod/ Tazobactam Sod (Zosyn Iv) 3.375 gm NOW STAT IV 11/13/17 21:00 11/13/17 21:04 DC 11/13/17 22:53 3.375 GM Sodium Chloride 500 ml @ 999 mls/hr Q31M STAT IV 11/13/17 21:00 11/13/17 21:30 DC 11/13/17 21:00 999 MLS/HR ECG Indication: other (Foot swelling) Rate (beats per minute): 104 Rhythm: normal sinus Findings: no acute ischemic change, other (Normal axis. Poor baseline artifact. ) Change: no significant change (08/10/17) ED Course 2099: The patient was evaluated in room B11. A complete history and physical exam was performed. 2119: Upon reexamination, the patient will be further evaluated. I discussed the test results and treatment plan with her. The patient will be evaluated for further management. Medical Decision I reviewed the patient's past medical history, medications, and the nursing notes as described above. Differential Diagnosis: Cellulitis, osteomyelitis, abscess The patient is a 77-year-old woman with a past medical history of diabetes who presents emergency Department with worsening left foot redness, swelling, pain in the setting of having reconstructive surgery for left foot OA, pedis planus and left foot second hammertoe done by Dr. Cordero in August per hpi. Arrival the patient is in no acute distress, afebrile with stable vital signs. Her left foot has a 10 cm area of erythema and warmth, with a 5 cm area of apparent wound dehiscence with purulent eschar. No crepitus induration or fluctuance. Case was discussed with Dr. Cordero who was motion designer for [facility], agrees with plan for admission for IV abx. Recommends medicine admission given medical comorbidities. He will be available for patient consultation over the weekend. Labs notable for WBC of 16. Blood cultures drawn. X-ray negative for osseous involvement. She was treated with broad-spectrum antibiotics with vancomycin and Zosyn in the setting of diabetes. Case was discussed with [facility] will admit the patient for further management. Medication Reconcilliation Current Medication List: was personally reviewed by me Blood Pressure Screening Patient's blood pressure: Normal blood pressure Blood pressure disposition: Did not require urgent referral Consults Time Called: 2115 Consulting Physician: Dr. Consuelo DENNIS Returned Call: [phone] I discussed the patient with Dr. Consuelo DENNIS will evaluate the patient for further treatment. Impression Primary Impression: Cellulitis Scribe Attestation The scribe's documentation has been prepared under my direction and personally reviewed by me in its entirety. I confirm that the note above accurately reflects all work, treatment, procedures, and medical decision making performed by me. Departure Information Dispostion Being Evaluated By Hospitalist Referrals BRUNO MERRITT M.D. (PCP) Forms HOME CARE DOCUMENTATION FORM, IMPORTANT VISIT INFORMATION, WORK / SCHOOL INSTRUCTIONS Patient Instructions My [facility]
--- NOTE | 2017-11-13 21:25 | DIAGNOSTIC IMAGING REPORT ---
L FOOT MIN 3 VIEWS ROUTINE CLINICAL HISTORY: cellulitis, s/p foot surgery COMPARISON: 09/04/2017 DISCUSSION: Annual removal of the pin traversing the phalanges and metatarsals the second toe. Extensive operative changes consistent with partial fusion of the tarsal and metatarsal region. Mild soft tissue edema. No well-defined destructive process. There is no evidence for soft tissue swelling. IMPRESSION: Postoperative and degenerative change. Mild soft tissue edema. No well-defined acute bony abnormality. The above report was generated using voice recognition software. It may contain grammatical, syntax or spelling errors. Electronically signed by: Hayder Miller M.D. 11/13/2017 9:23 PM Dictated Date/Time: 11/13/2017 9:22 PM
[2017-11-13 21:34] LABS: BASO % 0.3 %; BASO ABS # 0.05 K/uL (0-0.2); EOS % 0.4 %; EOS ABS # 0.07 K/uL (0-0.5); HEMOGLOBIN 14.4 g/dL (12.0-16.0); IG# 0.04 K/uL (0.00-0.02); LYMPH % 13.1 %; LYMPH ABS # 2.12 K/uL (1.2-3.4); MEAN CELL VOLUME 86.9 fL (80-100); MEAN CORPUSCULAR HEMOGLOBIN 29.1 pg (25-34); MEAN CORPUSCULAR HGB CONC 33.5 g/dl (32-36); MEAN PLATELET VOLUME 9.6 fL (7.4-10.4); MONO % 7.3 %; MONO ABS # 1.18 K/uL (0.11-0.59); NEUT % 78.7 %; NEUT ABS # 12.71 K/uL (1.4-6.5); PLATELET COUNT 266 K/uL (130-400); RED CELL DISTRIBUTION WIDTH CV 13.9 % (11.5-14.5); RED CELL DISTRIBUTION WIDTH SD 44.1 fL (36.4-46.3); WHITE BLOOD COUNT 16.17 K/uL (4.8-10.8)
[2017-11-13 21:50] LABS: ALBUMIN 3.9 gm/dl (3.4-5.0); ALT/SGPT 35 U/L (12-78); BLOOD UREA NITROGEN 26 mg/dl (7-18); CALCIUM 9.7 mg/dl (8.5-10.1); CARBON DIOXIDE 29 mmol/L (21-32); CREATININE 1.18 mg/dl (0.60-1.20); GLUCOSE 115 mg/dl (70-99); LIPASE 521 U/L (73-393); POTASSIUM 4.2 mmol/L (3.5-5.1); SODIUM 135 mmol/L (136-145)
[2017-11-13 21:53] LABS: ALKALINE PHOSPHATASE 152 U/L (45-117); AST/SGOT 23 U/L (15-37); TOTAL PROTEIN 7.8 gm/dl (6.4-8.2)
[2017-11-13] MEDS ORDERED: DEXTROSE 50% 50 ML SYR IV PRN (23:00)
[2017-11-13] MEDS ORDERED: GLUCOSE 10 TABS/TUBE PO PRN (23:00)
[2017-11-13] MEDS ORDERED: GLUCOSE 40% GEL 15 GM TUBE PO PRN (23:00)
[2017-11-13] MEDS ORDERED: TRAMADOL HCL 50 MG TAB PO PRN (23:00)
[2017-11-13] MEDS ORDERED: ONDANSETRON INJ 2 MG/ML 2 ML VIAL IV PRN (23:00)
[2017-11-13] MEDS ORDERED: GLUCAGON FOR INJ 1 MG VIAL SQ PRN (23:00)
[2017-11-13 23:40] VITALS: BP 127/76; PULSE 101; TEMP 37.5; O2SAT 97; Ht 162.6 cm; Wt 75.0 kg
[2017-11-13] MEDS ORDERED: VANCOMYCIN CONSULT ACTIVE PRN (23:48)
[2017-11-14] MEDS ORDERED: PATIENT'S HEIGHT AND/OR WEIGHT NEEDED SCH (00:15)
[2017-11-14] MEDS: SODIUM CHLORIDE 0.9% 1000ML 1,000 ML IV SCH ×2 (00:33→15:33)
[2017-11-14] MEDS ORDERED: NURSING DECISION MEDICATION ORDER SCH (01:00)
[2017-11-14] MEDS ORDERED: PIPERACILL/TAZOBAC CONSULT ACTIVE PRN (01:15)
--- NOTE | 2017-11-14 01:27 | HISTORY & PHYSICAL EXAMINATION ---
DATE OF ADMISSION: 11/13/2017 TIME: 11:05 p.m. HISTORY OF PRESENT ILLNESS: The patient is a pleasant 77-year-old female with a history of diabetes, hypertension, dyslipidemia, and DVT, presenting with increasing leg foot swelling and drainage x2 days. Primary care is Dr. Cordero for ortho. The patient underwent a left foot reconstructive surgery on 09/04/[address] Cordero and was discharged to home. Her last followup visit with Dr. Cordero was last week and according to the patient, everything was looking fine. Starting yesterday, the patient started to note increased swelling on the left foot, especially on the wound site and also increased seepage of serosanguineous fluid. She denies having fevers, chills, nausea, vomiting, chest pain, shortness of breath, dizziness. At the ER, the patient was received afebrile, but was tachycardic at 107 and white count of 16.17. X-ray of the left foot did not show any signs of bony destruction, but did show soft tissue edema. She was given vancomycin and Zosyn at the ER and was referred to hospitalist for admission. When I examined the patient, she reports that her pain is about 4/10 on the left foot. Denies having any active shortness of breath, chest pain, nausea, vomiting, dizziness or any other symptoms. She does report some left shoulder pain, which started once and she was not able to ambulate properly with the left foot swelling and is using more upper body to ambulate. She was in a wheelchair after the foot surgery, and in the last week has been trying to use a cane. REVIEW OF SYSTEMS: Ten systems reviewed and negative except for the ones mentioned above. PAST MEDICAL HISTORY: Diabetes, on metformin; hypertension; dyslipidemia; DVT 20 years ago. MEDICATIONS: Metformin 500 twice a day, gabapentin 600 mg b.i.d., aspirin 81 mg daily, losartan/hydrochlorothiazide 50/12.5 half tablet daily, fish oil daily, calcium daily, vitamin D daily, B12 daily, Cymbalta 30 mg daily, levothyroxine 50 mcg daily, omeprazole 20 mg daily, potassium daily. PAST SURGICAL HISTORY: Aside from the foot surgery, she also had lumbar spine fusion in 2012 and cataract removal. PERSONAL AND SOCIAL HISTORY: She denies smoking, alcohol or drug use. Lives with . FAMILY HISTORY: Cancer, sister. Diabetes, mother. Heart disease, none. Stroke, mother. Stroke, sister. Thyroid disorder, daughter. PHYSICAL EXAMINATION: VITAL SIGNS: Blood pressure is 110/91, pulse rate of 102, temperature 36.7, respiratory rate of 14, saturating 95% on room air. GENERAL: The patient is awake, alert, oriented x3, not in distress, speaks in sentences. No accessory muscle use. HEAD AND NECK: Atraumatic and normocephalic. Normal pupils. Full EOMs. No icterus. [place] conjunctivae. ENT: Grossly normal. NECK: No JVD, no lymphadenopathy, no thyromegaly. HEART: Normal rate. Regular rhythm. Good S1, S2. No murmurs. LUNGS: Clear breath sounds bilaterally. No rales or wheezes. ABDOMEN: Nondistended, normal bowel sounds, soft, nontender. EXTREMITIES: On the left foot showing a surgical incision site on the medial dorsal aspect with some opening and seepage of scant, yellow drainage. There is surrounding erythema, moderate swelling and no tenderness up to the ankle borders . There is no calf swelling, pain, warmth or tenderness as well as to the thigh and the knee. The right lower leg is essentially normal. NEUROLOGIC: Essentially normal except for decreased sensation in the bilateral feet. LABORATORY STUDIES: White count is 16.17, hemoglobin is 14.4, platelet count is 266. Chemistry: Sodium 135, potassium 4.2, BUN 26, creatinine 1.18, lactic acid 2.0, AST noted, ALT 35. lipase 521. Blood cultures pending. Foot x-ray, postoperative and degenerative change, mild soft tissue edema, no acute bony abnormality. ASSESSMENT AND PLAN: This is a very pleasant 77-year-old female with a history of diabetes, hypertension, dyslipidemia, deep venous thrombosis, foot surgery on the left, presenting with increased left swelling and drainage from the wound site. 1. Possible sepsis secondary to left foot wound infection with cellulitis status post left foot surgery on 09/04/2017. At this time, follow up blood cultures and wound cultures. For now, empiric vancomycin and Zosyn. IV fluids and p.r.n. analgesics. We will avoid non-steroidal anti-inflammatory drugs because of the patient's low GFR. We will consult orthopedic service for possible further imaging and intervention including drainage. She will be kept n.p.o. after midnight for possible procedures in the morning. 2. Bilateral shoulder pain, more on the left than on the right, possibly musculoskeletal strain, but we will perform an x-ray to rule out a fracture. Ice packs for now. 3. Diabetes type 2, on metformin, hold that for now, and we will place her on insulin sliding scale and diabetic protocol. 4. Hypertension, stable. Continue losartan/hydrochlorothiazide, hold aspirin for possible procedures. 5. Dyslipidemia, on fish oil. 6. Deep venous thrombosis history [address] We will place her on heparin subcutaneous q. 8 for deep venous thrombosis prophylaxis. 7. The patient is full code per patient. DISPOSITION: Pending. PT, OT ordered. Usually lives at home with her , wanted to be discharged to home when medically stable. FOLLOWUP: Follow up with PCP and Dr. Cordero for ortho. LEVON
[2017-11-14] MEDS: PIPERACILL/TAZOBAC IV 3.375 GM in DEXTROSE 5% 100ML IV SCH ×3 (04:11→19:30)
[2017-11-14] MEDS: LEVOTHYROXINE 50 MCG TAB PO SCH (05:51)
[2017-11-14] MEDS: INSULIN ASPART 100 UNITS/ML 3 ML PEN SC SCH ×4 (05:55→20:34)
[2017-11-14] MEDS: ACETAMINOPHEN 325 MG TAB PO PRN (06:09)
--- NOTE | 2017-11-14 06:14 | DIAGNOSTIC IMAGING REPORT ---
L SHOULDER MIN 2 VIEWS ROUTINE CLINICAL HISTORY: 77 years-old Female presenting with R/O FRACTURE. TECHNIQUE: Internal rotation, external rotation, and Grashey views of the left shoulder were obtained. COMPARISON: Correlation made to chest x-ray from 2013. FINDINGS: Glenohumeral and acromioclavicular joints congruent. Degenerative changes noted at the acromioclavicular joint. There is suggestion of narrowing of the acromiohumeral interval with irregularity of the greater tuberosity suggesting chronic impingement of the rotator cuff. No acute fracture or acute malalignment. Visualized portion of the left hemithorax within normal limits. IMPRESSION: 1. Degenerative changes of the acromioclavicular joint and evidence of chronic impingement of the rotator cuff. 2. No acute osseous injury of the left shoulder. Electronically signed by: Maynor Bryant M.D. 11/14/2017 6:13 AM Dictated Date/Time: 11/14/2017 6:11 AM
[2017-11-14 06:52] VITALS: BP 122/58; PULSE 103; TEMP 37.3; O2SAT 93
[2017-11-14] MEDS ORDERED: INSULIN ASPART 100 UNITS/ML 3 ML PEN SC SCH (07:00)
[2017-11-14] MEDS: CYANOCOBALAMIN 500 MCG TAB (VIT B-12) PO SCH (07:23)
[2017-11-14] MEDS: MULTIVITAMIN TAB PO SCH (07:23)
[2017-11-14] MEDS: CALCIUM 600MG + VIT D 400 IU TAB PO SCH (07:24)
[2017-11-14] MEDS: OMEGA-3 (PURIFIED FISH OIL) 1 GM CAP PO SCH (07:24)
[2017-11-14] MEDS: PANTOprazole SOD 40 MG TAB PO SCH (07:24)
[2017-11-14] MEDS: HYDROCHLOROTHIAZIDE 25 MG TAB PO SCH (07:25)
[2017-11-14] MEDS: DULOXETINE (CYMBALTA) 30 MG CAP PO SCH (07:25)
[2017-11-14] MEDS: CHOLECALCIFEROL 1000 INTER.UNIT TAB PO SCH (07:25)
[2017-11-14] MEDS: IRBESARTAN 150 MG TAB PO SCH (07:25)
[2017-11-14] MEDS: GABAPENTIN 300 MG CAP PO SCH ×2 (07:26→20:35)
[2017-11-14] MEDS ORDERED: NON-FORMULARY MEDICATION (Potassium Gluconate 1 TAB) PO SCH (09:00)
[2017-11-14] MEDS ORDERED: NON-FORMULARY MEDICATION (Garlic 1 CAP) PO SCH (09:00)
[2017-11-14] MEDS: HEPARIN SOD 5000 UNIT/0.5 ML CARP SQ SCH ×3 (09:11→23:47)
--- NOTE | 2017-11-14 10:28 | ORTHOPEDIC CONSULTATION REPORT ---
DATE OF CONSULTATION: 11/14/2017 CHIEF COMPLAINT: Left foot pain and swelling. HISTORY OF PRESENT ILLNESS: This is a 77-year-old female patient known to Dr. Cordero complaining of a 2-day onset of increased left foot redness, pain and swelling. The patient is status post a left foot reconstructive type surgery with Achilles lengthening back in August of 2017. She noticed these symptoms approximately 2 days ago and have been progressively getting worse. She reported to an urgent care center where she was referred to [facility] for evaluation. The patient was seen in the Emergency Department and was deemed to have an infection of her foot. Cultures from the ER show gram pos cocci. She was admitted by medicine team and she is currently on vancomycin and Zosyn and we are being consulted for orthopedic care. REVIEW OF SYSTEMS: Other than the foot symptoms, the patient denies any shortness of breath, chest pain, nausea, vomiting or any other joint complaints. SOCIAL HISTORY: The patient lives at home with her . She is independent. She is a nonsmoker and non-alcohol user. PAST SURGICAL HISTORY: Most recently left foot surgery. She has a hx of back surgery, hysterectomy and cataract surgery. PAST MEDICAL HISTORY: Hypothyroidism, diabetes mellitus, hypertension, hypercholesterolemia, and a history of DVT. MEDICATIONS: Metformin 500 mg b.i.d., gabapentin 600 mg b.i.d., aspirin 81 mg daily, losartan/hydrochlorothiazide 50/12.5 half tablet daily, fish oil daily, calcium daily, vitamin D daily, vitamin B12 daily, Cymbalta 30 mg daily, levothyroxine 50 mcg daily, omeprazole 20 mg daily, and potassium daily. FAMILY HISTORY: Significant for cancer, diabetes mellitus, coronary artery disease and thyroid disease. ALLERGIES: No known drug allergies. PHYSICAL EXAMINATION: VITAL SIGNS: Currently, temperature is 37.3, pulse is 103, blood pressure is 122/58, and pulse ox is 93 on room air. GENERAL: This is a well-developed, well-nourished 77-year-old female in no acute distress. She is alert and oriented x3. She is pleasant. HEENT: Normocephalic, atraumatic. Extraocular motions are intact. Pupils are equal and reactive to light. HEART: Regular rate and rhythm with no murmurs appreciated. LUNGS: Clear. ABDOMEN: Soft and nontender. EXTREMITIES: Left foot incision shows some black margins. She has got some scant drainage throughout the entire incision. The whole foot is mild to moderately erythematic with +2 swelling throughout the foot. She is able to wiggle her toes. Pulses are intact. Sensation is intact in her left foot. She has no calf tenderness, no calf swelling and ankles without swelling. Range of motion of the ankles normal. Symptoms only seem to be isolated to her left foot. No pain at the knee. LABORATORY COUNTS ON ADMISSION: White blood cell count is 16.17, glucose is 140. INR was 1.0. DIAGNOSES: Left foot infection. She also has a history of hypothyroidism, diabetes mellitus, hypertension, hypercholesterolemia, and a history of a deep venous thrombosis. PLAN: The patient will be admitted under medicine service. We will continue to follow her cultures from the Emergency Room. We will give her adequate pain control and continue her preadmission medications. We will have Dr. Cordero follow up with her today for a probable left foot washout and I&D tomorrow in the operating room. She will be n.p.o. after midnight for I and D left foot in the morning. Addendum: I examined the patient and reviewed the above consult and agree with the recommendations of Mr Suraj WALTON Will schedule for I and D left foot infection tomorrow AM. Sania DOS SANTOS
--- NOTE | 2017-11-14 10:40 | DIAGNOSTIC IMAGING REPORT ---
L FOOT MIN 3 VIEWS ROUTINE CLINICAL HISTORY: 77 years-old Female presenting with r/o osteo. TECHNIQUE: Frontal, oblique, and lateral views of the left foot were obtained. COMPARISON: 11/13/2017 and 09/04/2017. FINDINGS: Postsurgical changes of extensive plate and screw fixation of the midfoot and first and second metatarsals bridging the first and second tarsometatarsal articulations. Transarticular screw is noted extending from the base of the first metatarsal to the navicular. No gross evidence of hardware complication. Osteopenia noted. Diffuse soft tissue swelling along the medial aspect at the level of the midfoot unchanged. No new fracture or worsen malalignment. No gross evidence of osteolysis allowing for osteopenia. Linear radiolucency along the medial foot is unchanged from prior. Os peroneum noted. Prominent enthesophytes at the insertion of the Achilles tendon and origin of the plantar fascia. Atherosclerosis. IMPRESSION: 1. Soft tissue swelling most prominently along the medial aspect the level of the midfoot. Questionable subcutaneous emphysema along the medial aspect of the midfoot, although this is unchanged from prior radiograph. 2. Extensive internal fixation as detailed above. No gross evidence of hardware complication. 3. Allowing for osteopenia, no radiographic evidence of osteomyelitis. If there is continuing clinical concern, noncontrast MR could be obtained. Electronically signed by: Maynor Bryant M.D. 11/14/2017 10:39 AM Dictated Date/Time: 11/14/2017 10:33 AM
--- NOTE | 2017-11-14 14:12 | Progress Note ---
Internal Med Progress Note Date of Service: Nov 14, 2017. Provider Documentation: SUBJECTIVE: Patient seen and examined. Patient aware of plans for surgery possibly tomorrow for left foot. Patient denies acute pain of foot at time of exam and denied other concerns or symptoms OBJECTIVE: Exam: General- no acute distress Eyes- EOMI Neck- midline trachea, no JVD Lungs- CTABL Heart- RRR Abdomen- soft, nontender, + bowel sounds Extremities- left foot in dressing ASSESSMENT & PLAN: history of diabetes, hypertension, dyslipidemia, deep venous thrombosis, foot surgery on the left, presenting with increased left swelling and drainage from the wound site. 1. Possible sepsis secondary to left foot wound infection with cellulitis status post left foot surgery on 09/04/2017. Blood culture 11/13/17 pending results Wound culture 11/14/17 MODERATE GRAM POSITIVE COCCI Continue Vancomycin and Zosyn Orthopedics planning left foot washout and I&D tomorrow in the operating room. She will be n.p.o. after midnight for probable surgery in the morning 2. Bilateral shoulder pain, more on the left than on the right, X ray: Degenerative changes of the acromioclavicular joint and evidence of chronic impingement of the rotator cuff. No acute osseous injury of the left shoulder Ice packs if needed 3. Diabetes type 2 hold metformin continue sliding scale insulin, fingerstick glucose 4. Hypertension, stable. Continue losartan/hydrochlorothiazide, hold aspirin for possible procedures. 5. Dyslipidemia, on fish oil. 6. Deep venous thrombosis history 20 years ago. heparin subcutaneous q. 8 for deep venous thrombosis prophylaxis. Full Code Vital Signs: Date Time Temp Pulse Resp B/P (MAP) Pulse Ox O2 Delivery O2 Flow Rate FiO2 11/14/17 08:22 Room Air 11/14/17 06:52 37.3 103 18 122/58 (79) 93 Room Air 11/14/17 00:30 Room Air 11/13/17 23:42 78 126/97 11/13/17 23:40 Room Air 11/13/17 23:40 37.5 101 18 127/76 (93) 97 Room Air 11/13/17 21:52 102 11/13/17 21:43 97 110/91 11/13/17 20:46 36.7 107 18 137/74 95 Room Air Lab Results: Results Past 24 Hours Test 11/13/17 21:15 11/13/17 21:33 11/14/17 00:53 11/14/17 05:53 Range/Units White Blood Count 16.17 4.8-10.8 K/uL Red Blood Count 4.95 4.2-5.4 M/uL Hemoglobin 14.4 12.0-16.0 g/dL Hematocrit 43.0 37-47 % Mean Corpuscular Volume 86.9 80-100 fL Mean Corpuscular Hemoglobin 29.1 25-34 pg Mean Corpuscular Hemoglobin Concent 33.5 32-36 g/dl Platelet Count 266 130-400 K/uL Mean Platelet Volume 9.6 7.4-10.4 fL Neutrophils (%) (Auto) 78.7 % Lymphocytes (%) (Auto) 13.1 % Monocytes (%) (Auto) 7.3 % Eosinophils (%) (Auto) 0.4 % Basophils (%) (Auto) 0.3 % Neutrophils # (Auto) 12.71 1.4-6.5 K/uL Lymphocytes # (Auto) 2.12 1.2-3.4 K/uL Monocytes # (Auto) 1.18 0.11-0.59 K/uL Eosinophils # (Auto) 0.07 0-0.5 K/uL Basophils # (Auto) 0.05 0-0.2 K/uL RDW Standard Deviation 44.1 36.4-46.3 fL RDW Coefficient of Variation 13.9 11.5-14.5 % Immature Granulocyte % (Auto) 0.2 % Immature Granulocyte # (Auto) 0.04 0.00-0.02 K/uL Sodium Level 135 136-145 mmol/L Potassium Level 4.2 3.5-5.1 mmol/L Chloride Level 98 98-107 mmol/L Carbon Dioxide Level 29 21-32 mmol/L Anion Gap 8.0 3-11 mmol/L Blood Urea Nitrogen 26 7-18 mg/dl Creatinine 1.18 0.60-1.20 mg/dl Estimated GFR () 51.9 Estimated GFR (Non- 44.8 BUN/Creatinine Ratio 21.9 10-20 Random Glucose 115 70-99 mg/dl Calcium Level 9.7 8.5-10.1 mg/dl Total Bilirubin 0.6 0.2-1 mg/dl Direct Bilirubin 0.2 0-0.2 mg/dl Aspartate Amino Transf (AST/SGOT) 23 15-37 U/L Alanine Aminotransferase (ALT/SGPT) 35 12-78 U/L Alkaline Phosphatase 152 45-117 U/L Total Protein 7.8 6.4-8.2 gm/dl Albumin 3.9 3.4-5.0 gm/dl Lipase 521 73-393 U/L Lactic Acid Level 2.0 0.4-2.0 mmol/L Bedside Glucose 136 140 70-90 mg/dl Test 11/14/17 06:34 11/14/17 12:07 Range/Units Prothrombin Time 10.7 9.0-12.0 SECONDS Prothromb Time International Ratio 1.0 0.9-1.1 Bedside Glucose 156 70-90 mg/dl Microbiology Results 11/13/17 Blood Culture, Received Pending 11/13/17 Blood Culture, Received Pending 11/14/17 Gram Stain - Final, Resulted 11/14/17 Wound Culture, Resulted Pending
[2017-11-14] MEDS: VANCOMYCIN INJ 1,250 MG in SODIUM CHLORIDE 0.9% 250ML 250 ML IV SCH (14:39)
--- NOTE | 2017-11-14 14:41 | Pharmacy Progress Note ---
Pharmacy Antibiotic Consult Date of Service: Nov 14, 2017. Pharmacy Dosing Scope Pharmacy is consulted to initiate vancomycin IV dosing therapy, order appropriate labs and adjust drug dose/frequency. Subjective The patient is a 77 year old female admitted on Nov 13, 2017 at 22:50. Objective Height (Feet): 5 Height (Inches): 4.00 Weight (Kilograms): 75.000 Lab Results (24hrs): Test 11/13/17 21:15 11/13/17 21:33 11/14/17 05:53 11/14/17 06:34 White Blood Count 16.17 K/uL (4.8-10.8) Red Blood Count 4.95 M/uL (4.2-5.4) Hemoglobin 14.4 g/dL (12.0-16.0) Hematocrit 43.0 % (37-47) Mean Corpuscular Volume 86.9 fL (80-100) Mean Corpuscular Hemoglobin 29.1 pg (25-34) Mean Corpuscular Hemoglobin Concent 33.5 g/dl (32-36) Platelet Count 266 K/uL (130-400) Mean Platelet Volume 9.6 fL (7.4-10.4) Neutrophils (%) (Auto) 78.7 % Lymphocytes (%) (Auto) 13.1 % Monocytes (%) (Auto) 7.3 % Eosinophils (%) (Auto) 0.4 % Basophils (%) (Auto) 0.3 % Neutrophils # (Auto) 12.71 K/uL (1.4-6.5) Lymphocytes # (Auto) 2.12 K/uL (1.2-3.4) Monocytes # (Auto) 1.18 K/uL (0.11-0.59) Eosinophils # (Auto) 0.07 K/uL (0-0.5) Basophils # (Auto) 0.05 K/uL (0-0.2) RDW Standard Deviation 44.1 fL (36.4-46.3) RDW Coefficient of Variation 13.9 % (11.5-14.5) Immature Granulocyte % (Auto) 0.2 % Immature Granulocyte # (Auto) 0.04 K/uL (0.00-0.02) Sodium Level 135 mmol/L (136-145) Potassium Level 4.2 mmol/L (3.5-5.1) Chloride Level 98 mmol/L (98-107) Carbon Dioxide Level 29 mmol/L (21-32) Anion Gap 8.0 mmol/L (3-11) Blood Urea Nitrogen 26 mg/dl (7-18) Creatinine 1.18 mg/dl (0.60-1.20) Estimated GFR () 51.9 Estimated GFR (Non- 44.8 BUN/Creatinine Ratio 21.9 (10-20) Random Glucose 115 mg/dl (70-99) Calcium Level 9.7 mg/dl (8.5-10.1) Total Bilirubin 0.6 mg/dl (0.2-1) Direct Bilirubin 0.2 mg/dl (0-0.2) Aspartate Amino Transf (AST/SGOT) 23 U/L (15-37) Alanine Aminotransferase (ALT/SGPT) 35 U/L (12-78) Alkaline Phosphatase 152 U/L (45-117) Total Protein 7.8 gm/dl (6.4-8.2) Albumin 3.9 gm/dl (3.4-5.0) Lipase 521 U/L (73-393) Lactic Acid Level 2.0 mmol/L (0.4-2.0) Bedside Glucose 140 mg/dl (70-90) Prothrombin Time 10.7 SECONDS (9.0-12.0) Prothromb Time International Ratio 1.0 (0.9-1.1) Test 11/14/17 12:07 Bedside Glucose 156 mg/dl (70-90) Assessment & Plan Assessment * 77 yo F with L foot infection. X-ray w/ no well-defined bony abnormalities. Possible I&D in OR 11/15 * PMH: L foot reconstructive surgery Aug 2017 * Antibiotics: Zosyn, vancomycin - appropriate for now * Cultures: 11/14 L foot drainage with GPC on Gram stain * Renal function: SCr very slightly elevated from baseline - significant dysfunction not anticipated. eCrCL 48 mL/min Vancomycin * Goal vancomycin trough 15-20 mcg/mL for now. May consider decrease to 10-15 mcg/mL pending culture results and assuming no bone involvement * Vancomycin 20 mg/kg load administered * Will continue with 16 mg/kg IV dosed at slightly longer than anticipated t1/2 of 15 hr * Trough prior to 4th overall dose Plan * Vancomycin 1250 mg IV q16h * Trough 11/15 @ 1930 Pharmacy will continue to follow and will adjust dose/frequency as necessary. Thank you
[2017-11-14] MEDS ORDERED: NURSING VERBAL MED ORDER ONE (15:00)
--- NOTE | 2017-11-14 15:02 | Orthopedic Progress Note ---
Orthopedic Progress Note Date of Service Nov 14, 2017. Subjective Reports: pain controlled w PO medications, Denies: chest pain, SOB, nausea / vomiting, light headedness, calf pain Additional Notes: Pain controlled left foot. Objective calves soft nontender, N/V intact, capillary refill less than 2 sec., A&O x3, toes mobile Moderate serosanguineous discharge medial foot. Local erythema medial foot. No foul odor. DP/PT intact. Foot warm. Date Time Temp Pulse Resp B/P (MAP) Pulse Ox O2 Delivery O2 Flow Rate FiO2 11/14/17 08:22 Room Air 11/14/17 06:52 37.3 103 18 122/58 (79) 93 Room Air 11/14/17 00:30 Room Air 11/13/17 23:42 78 126/97 11/13/17 23:40 Room Air 11/13/17 23:40 37.5 101 18 127/76 (93) 97 Room Air 11/13/17 21:52 102 11/13/17 21:43 97 110/91 11/13/17 20:46 36.7 107 18 137/74 95 Room Air Laboratory Results 24 Hours: Test 11/13/17 21:15 11/14/17 06:34 White Blood Count 16.17 K/uL Red Blood Count 4.95 M/uL Hemoglobin 14.4 g/dL Hematocrit 43.0 % Mean Corpuscular Volume 86.9 fL Mean Corpuscular Hemoglobin 29.1 pg Mean Corpuscular Hemoglobin Concent 33.5 g/dl Platelet Count 266 K/uL Mean Platelet Volume 9.6 fL Neutrophils (%) (Auto) 78.7 % Lymphocytes (%) (Auto) 13.1 % Monocytes (%) (Auto) 7.3 % Eosinophils (%) (Auto) 0.4 % Basophils (%) (Auto) 0.3 % Neutrophils # (Auto) 12.71 K/uL Lymphocytes # (Auto) 2.12 K/uL Monocytes # (Auto) 1.18 K/uL Eosinophils # (Auto) 0.07 K/uL Basophils # (Auto) 0.05 K/uL Prothromb Time International Ratio 1.0 Prothrombin Time 10.7 SECONDS Assessment & Plan Assessment: Left foot deep infection with partial wound dehiscence. Plan: NPO after MN Plan for I and D left foot deep infection in AM Continue IV antibiotics
[2017-11-14 15:11] VITALS: BP 121/77; PULSE 97; TEMP 38.4; O2SAT 95
[2017-11-14 15:30] VITALS: TEMP 37.1
[2017-11-14 22:49] VITALS: BP 131/73; PULSE 103; TEMP 37.6; O2SAT 94
[2017-11-15] VITALS (9 sets, daily range): BP systolic 97–126; BP diastolic 60–69; PULSE 78–99; TEMP 36.7–37.3; O2SAT 92–98
[2017-11-15] MEDS ORDERED: NURSING VERBAL MED ORDER ONE ×2 (03:45→12:00)
[2017-11-15] MEDS: SODIUM CHLORIDE 0.9% 1000ML 1,000 ML IV SCH ×2 (04:03→15:24)
[2017-11-15] MEDS: VANCOMYCIN INJ 1,250 MG in SODIUM CHLORIDE 0.9% 250ML 250 ML IV SCH ×2 (04:03→19:19)
[2017-11-15] MEDS: PIPERACILL/TAZOBAC IV 3.375 GM in DEXTROSE 5% 100ML IV SCH ×3 (04:03→19:18)
[2017-11-15] MEDS: LEVOTHYROXINE 50 MCG TAB PO SCH (05:54)
[2017-11-15] MEDS ORDERED: INSULIN ASPART 100 UNITS/ML 3 ML PEN SC SCH (06:00)
[2017-11-15 06:31] LABS: CREATININE 1.02 mg/dl (0.60-1.20)
[2017-11-15] MEDS ORDERED: BACITRACIN 50000 UNIT VIAL ONE (07:22)
[2017-11-15] MEDS ORDERED: BUPIVACAINE 0.5 % 5 MG/1 ML MPF 30ML VIAL ONE (07:22)
[2017-11-15] MEDS ORDERED: PROPOFOL IV EMULSION 10 MG/ML 20 ML VIAL IV ONE (07:45)
[2017-11-15] MEDS ORDERED: LIDOCAINE HCL 2% 2 ML VIAL (20MG/ML) ONE (07:45)
[2017-11-15] MEDS ORDERED: ATROPINE SULFATE 0.1 MG/ML 5ML SYR IV PRN (07:45)
[2017-11-15] MEDS ORDERED: FENTANYL CITRATE INJ 50 MCG/1 ML 2 ML VIAL ONE (07:45)
[2017-11-15] MEDS ORDERED: DEXAMETHASONE SOD INJ 4 MG/ML VIAL ONE (07:45)
[2017-11-15] MEDS ORDERED: ONDANSETRON INJ 2 MG/ML 2 ML VIAL IV PRN (07:45)
[2017-11-15] MEDS ORDERED: FENTANYL CITRATE INJ 50 MCG/1 ML 2 ML VIAL IV PRN (07:45)
[2017-11-15] MEDS ORDERED: ONDANSETRON INJ 2 MG/ML 2 ML VIAL ONE (07:45)
[2017-11-15] MEDS ORDERED: MIDAZOLAM HCL 1 MG/ML 2ML VIAL ONE (07:45)
[2017-11-15] MEDS ORDERED: EpHEDrine SULFATE INJ 50 MG/ML AMP IV PRN (07:45)
[2017-11-15] MEDS ORDERED: HYDROmorphone INJ 1 MG/ML SYR IV PRN (07:45)
--- NOTE | 2017-11-15 07:52 | History & Physical Bridge Note ---
H&P Re-Evaluation Bridge Note: I have examined the patient, reviewed the History & Physical and in the interval since the performance of the History & Physical I have noted the following changes of clinical significance: Will need left foot I and D today. NPO. Consent on chart.
--- NOTE | 2017-11-15 08:45 | [facility] Post Operative Brief Note ---
Immediate Operative Summary Operative Date Nov 15, 2017. Pre-Operative Diagnosis Left foot deep infection with partial wound dehiscence Post-Operative Diagnosis Left foot deep infection with partial wound dehiscence Procedure(s) Performed Irrigation and debridement Left Foot skin, subcutaneous fat and fascia Surgeon Dr. Jacob Cordero Tower Hand Surgeon(s) None Estimated Blood Loss 2cc Findings See dict Specimens Microbiology 1. Deep Medial Left Foot Drains Loose partial wound closure Anesthesia GLMA w/ ankle block Complication(s) None Disposition Recovery Room / PACU
--- NOTE | 2017-11-15 09:44 | Anesthesiology Progress Note ---
Anesthesia Post Op Note Date & Time Nov 15, 2017 at 09:44 Vital Signs Pain Intensity: 0 Vital Signs Past 12 Hours Date Time Temp Pulse Resp B/P (MAP) Pulse Ox O2 Delivery O2 Flow Rate FiO2 11/15/17 09:15 36.8 88 16 108/69 96 Nasal Cannula 2 11/15/17 09:05 86 16 115/66 98 Oxymask 10 11/15/17 08:55 90 16 119/72 97 Oxymask 10 11/15/17 08:48 37.1 94 16 131/70 99 Oxymask 10 11/15/17 07:38 36.8 87 19 111/66 (81) 98 Room Air 11/15/17 00:00 Room Air 11/14/17 22:49 37.6 103 16 131/73 (92) 94 Room Air Notes Mental Status: alert / awake / arousable, participated in evaluation Pt Amnestic to Procedure: Yes Nausea / Vomiting: adequately controlled Pain: adequately controlled Airway Patency, RR, SpO2: stable & adequate BP & HR: stable & adequate Hydration State: stable & adequate Anesthetic Complications: no major complications apparent
[2017-11-15] MEDS: CYANOCOBALAMIN 500 MCG TAB (VIT B-12) PO SCH (10:14)
[2017-11-15] MEDS: DULOXETINE (CYMBALTA) 30 MG CAP PO SCH (10:15)
[2017-11-15] MEDS: GABAPENTIN 300 MG CAP PO SCH ×2 (10:15→20:49)
[2017-11-15] MEDS: MULTIVITAMIN TAB PO SCH (10:15)
[2017-11-15] MEDS: IRBESARTAN 150 MG TAB PO SCH (10:16)
[2017-11-15] MEDS: HYDROCHLOROTHIAZIDE 25 MG TAB PO SCH (10:16)
[2017-11-15] MEDS: CALCIUM 600MG + VIT D 400 IU TAB PO SCH (10:16)
[2017-11-15] MEDS: OMEGA-3 (PURIFIED FISH OIL) 1 GM CAP PO SCH (10:17)
[2017-11-15] MEDS: PANTOprazole SOD 40 MG TAB PO SCH (10:17)
[2017-11-15] MEDS: CHOLECALCIFEROL 1000 INTER.UNIT TAB PO SCH (10:18)
--- NOTE | 2017-11-15 11:45 | OPERATIVE REPORT ---
DATE OF OPERATION: 11/15/2017 PREOPERATIVE DIAGNOSES: 1. Left medial foot deep infection. 2. Wound dehiscence. POSTOPERATIVE DIAGNOSES: Same. PROCEDURE: Irrigation and debridement, left foot including skin, subcutaneous tissue and fascia. SURGEON: Dr. Cordero. EXCEL VBA DEVELOPER: None. ANESTHESIA: General LMA with ankle block. SPECIMENS: Aerobic, anaerobic and Gram stain specimens from the medial deep foot. DRAINS: Loose partial closure. COMPLICATIONS: None. BLOOD LOSS: 2 mL PERTINENT HISTORY: This is a 77-year-old woman who had a medial foot reconstruction and fusion approximately 6-7 weeks prior and had been seen in the office on her regularly scheduled postoperative visit. He was doing quite well and had no complaints of foot pain, swelling, redness, fevers, chills or malaise. Her sutures were removed approximately 2 weeks ago and after that period of time, patient then was doing well; however, 2 days prior to admission, patient started developing pain, redness and swelling of her left foot and noticed some scant drainage over the left medial foot. The patient was then encouraged to present to the ER. She was seen by the Emergency Room physician and admitted to the hospital and placed on IV antibiotics. The patient was then scheduled for irrigation and debridement of the left medial foot. The patient has hardware in the medial foot and the understanding was to help to preserve the hardware in the foot by addressing the wound complications early. The patient was then scheduled for surgery as indicated. All potential risks, benefits, complications, alternatives, rehab, potential for incomplete relief of symptoms, need for further surgery, DVT, PE, , persistent pain, swelling, scarring, weakness, neurovascular injury, need for removal of the plate and screws, possible need for plastic surgery consultation and further care was discussed with the patient. The patient decided to proceed with the procedure as indicated. DESCRIPTION OF PROCEDURE: The patient was taken to the operative suite, placed supine on the operating room table. After review of the consent and identification of proper operative site, the patient was then anesthetized and LMA was placed. Left lower extremity was then sterilely prepped and draped in usual fashion, elevated and an Esmarch tourniquet was applied over a sterile surgical towel at the level of the ankle. There was no exsanguination performed due to the nature of the infection. Next, the 15-blade scalpel was used to debride the necrotic eschar and devitalized soft tissue over the left medial foot. The skin, subcutaneous fat and fascia were carefully debrided in a judicious fashion. There was noted to be small exposed area of screw and plate at the distal extent of the incision. There was some partially viable tissue to be partially closed over the plate. The plate was retained to attempt to get fusion of the medial column of the foot rather than removing the plate and screws at this time. After careful debridement was performed and completed with a sharp 15-blade scalpel, the pulsatile lavage with 3 liters and bacitracin additive was then used to cleanse the medial foot. Next, top gloves and top sheet were changed and partial closure of the left medial foot was performed as possible with interrupted 4-0 nylon horizontal and vertical mattress sutures. Next, a sterile lightly compressive dressing was applied consisting of Adaptic, 4 x 4's, 4-inch Kerlix roll and a Coban. An ankle block was performed with 30 mL of 0.5% Marcaine plain and then a Coban was then applied over the dressing. The tourniquet was released. The patient was awakened and taken to recovery in stable condition. I attest to the content of the Intraoperative Record and any orders documented therein. Any exception s are noted below.
[2017-11-15] MEDS: HEPARIN SOD 5000 UNIT/0.5 ML CARP SQ SCH ×2 (12:30→20:55)
[2017-11-15] MEDS: INSULIN ASPART 100 UNITS/ML 3 ML PEN SC SCH ×3 (13:41→20:57)
--- NOTE | 2017-11-15 16:43 | Progress Note ---
Internal Med Progress Note Date of Service: Nov 15, 2017. Provider Documentation: SUBJECTIVE: Patient seen and examined. s/p orthopedic intervention. Patient does not have acute pain. OBJECTIVE: Exam: General- no acute distress Eyes- EOMI Neck- midline trachea, no JVD Lungs- CTABL, no wheezing Heart- RRR Abdomen- soft, nontender, + bowel sounds Extremities- left foot in dressing ASSESSMENT & PLAN: history of diabetes, hypertension, dyslipidemia, deep venous thrombosis, foot surgery on the left, presenting with increased left swelling and drainage from the wound site. Left foot wound infection with cellulitis status post left foot surgery on 09/04. Left foot deep infection with partial wound dehiscence Blood culture 11/13/17 no growth to date Wound culture 11/14/17 Staph Aureus 11/15/17 orthopedics performed: Irrigation and debridement Left Foot skin, subcutaneous fat and fascia; Aerobic, anaerobic and Gram stain specimens from the medial deep foot were sent Continue Vancomycin and Zosyn for now Bilateral shoulder pain - resolved X ray: Degenerative changes of the acromioclavicular joint and evidence of chronic impingement of the rotator cuff. No acute osseous injury of the left shoulder Ice packs if needed Diabetes type 2 hold metformin continue sliding scale insulin, fingerstick glucose Hypertension Continue losartan/hydrochlorothiazide, hold aspirin for possible procedures. 5. Dyslipidemia, on fish oil. 6. Deep venous thrombosis history 20 years ago. heparin subcutaneous q. 8 for deep venous thrombosis prophylaxis. Full Code Disposition: Patient doing well s/p Irrigation and debridement Left Foot skin, subcutaneous fat and fascia. Continue IV broad spectrum antibiotics until further cultures return. Patient to remain in the hospital for now Vital Signs: Date Time Temp Pulse Resp B/P (MAP) Pulse Ox O2 Delivery O2 Flow Rate FiO2 11/15/17 15:30 Room Air 11/15/17 15:04 36.7 91 18 104/62 (76) 93 Room Air 11/15/17 12:45 36.9 78 20 110/69 (83) 97 Room Air 11/15/17 11:45 92 18 97/61 (73) 95 Room Air 11/15/17 10:45 93 17 106/64 (78) 97 Nasal Cannula 2.0 11/15/17 10:15 95 16 105/66 (79) 94 Nasal Cannula 2.0 11/15/17 09:40 Nasal Cannula 2.0 11/15/17 09:40 92 Nasal Cannula 2.0 11/15/17 09:15 36.8 88 16 108/69 96 Nasal Cannula 2 11/15/17 09:05 86 16 115/66 98 Oxymask 10 11/15/17 08:55 90 16 119/72 97 Oxymask 10 11/15/17 08:48 37.1 94 16 131/70 99 Oxymask 10 11/15/17 07:38 36.8 87 19 111/66 (81) 98 Room Air 11/15/17 00:00 Room Air 11/14/17 22:49 37.6 103 16 131/73 (92) 94 Room Air Lab Results: Results Past 24 Hours Test 11/14/17 17:02 11/14/17 20:28 11/14/17 23:52 11/15/17 05:42 Range/Units Bedside Glucose 211 108 136 70-90 mg/dl Creatinine 1.02 0.60-1.20 mg/dl Est Creatinine Clear Calc Drug Dose 46.5 ml/min Estimated GFR () 61.9 Estimated GFR (Non- 53.4 Test 11/15/17 05:54 11/15/17 09:00 11/15/17 11:44 Range/Units Bedside Glucose 118 134 202 70-90 mg/dl Microbiology Results 11/15/17 Gram Stain, Received Pending 11/15/17 Bacterial Culture, Received Pending
--- NOTE | 2017-11-15 17:28 | Medical Consult ---
Consultation Date of Consultation: Nov 15, 2017. Attending Physician: Abdirahman Naranjo M.D. Reason for Consultation: Left foot infection, status post I and D History of Present Illness 77-year-old female with history of diabetes mellitus, status post left foot surgery in late August, with some intermittent drainage following surgery. Reportedly did well until last several days when she noted markedly increase redness and swelling of left foot with increasing drainage. Patient notes fever and chills. Was found to have evidence of surgical site infection, is now undergone incision and drainage with finding of deep infection with operative cultures now growing Staph aureus. Sensitivities are pending. Patient states that she had increasing pain over last several days, but now improved since surgery. Has been on vancomycin and tolerating without apparent difficulty. No other new systemic complaints. Past Medical/Surgical History Medical Problems: (1) Cellulitis Status: Acute Medical Problems: (1) Diabetes (2) Foot infection (3) Osteoarthritis of left foot (4) Pes planus (5) Vertigo Surgical Problems: (1) Postoperative state Family History Noncontributory Social History Smoking Status: Never Smoker Marital Status: Housing Status: lives with family Occupation Status: retired Allergies Coded Allergies: No Known Allergies (Unverified , 09/04/17) Current Inpatient Medications Current Inpatient Medications Medications (Trade) Dose Ordered Sig/Shannon Route Start Time Stop Time Status Last Admin Dose Admin Vancomycin HCl (Consult) 1 ea DAILY PRN N/A 11/13/17 23:48 12/13/17 23:47 Sodium Chloride 1,000 ml @ 80 mls/hr [id number] IV 11/13/17 23:59 12/13/17 23:58 11/15/17 15:24 80 MLS/HR Tramadol HCl (Ultram Tab) 50 mg Q6H PRN PO 11/13/17 23:00 12/13/17 22:59 11/14/17 19:39 50 MG Glucose (Glucose 40% Gel) 15-30 GRAMS 15 GRAMS... UD PRN PO 11/13/17 23:00 12/13/17 22:59 Glucose (Glucose Chew Tab) 4-8 Tablets 4 Tabl... UD PRN PO 11/13/17 23:00 12/13/17 22:59 Dextrose (Dextrose 50% 50ML Syringe) 25-50ML OF 50% DW IV FOR... UD PRN IV 11/13/17 23:00 12/13/17 22:59 Glucagon (Glucagon Inj) 1 mg UD PRN SQ 11/13/17 23:00 12/13/17 22:59 Heparin Sodium (Porcine) (Heparin Sq 5000 Unit/0.5ml) 5,000 unit Q8H SQ 11/14/17 08:00 12/14/17 07:59 11/15/17 12:30 5,000 UNIT Acetaminophen (Tylenol Tab) 650 mg Q4H PRN PO 11/13/17 23:00 12/13/17 22:59 11/14/17 06:09 650 MG Ondansetron HCl (Zofran Inj) 4 mg Q6H PRN IV 11/13/17 23:00 12/13/17 22:59 Calcium/Vitamin D (Caltrate Plus Tab) 1 tab QAM PO 11/14/17 09:00 12/14/17 08:59 11/15/17 10:16 1 TAB Duloxetine HCl (Cymbalta Cap) 30 mg QAM PO 11/14/17 09:00 12/14/17 08:59 11/15/17 10:15 30 MG Fish Oil ([place]-3 (Purified Fish Oil) Cap) 1 gm QAM PO 11/14/17 09:00 12/14/17 08:59 11/15/17 10:17 1 GM Gabapentin (Neurontin Cap) 600 mg BID PO 11/14/17 09:00 12/14/17 08:59 11/15/17 10:15 600 MG Levothyroxine Sodium (Synthroid Tab) 50 mcg DAILYBB PO 11/14/17 06:00 12/14/17 05:59 11/15/17 05:54 50 MCG Multivitamins (Multivitamin Tab) 1 tab QAM PO 11/14/17 09:00 12/14/17 08:59 11/15/17 10:15 1 TAB Cholecalciferol (Vitamin D Tab) 1,000 inter.unit QAM PO 11/14/17 09:00 12/14/17 08:59 11/15/17 10:18 1,000 INTER.UNIT Cyanocobalamin (Vitamin B-12 Tab) 500 mcg QAM PO 11/14/17 09:00 1/29/18 08:59 11/15/17 10:14 500 MCG Miscellaneous Information (Order Awaiting Action) 1 ea QS N/A 11/14/17 08:00 12/14/17 07:59 Pantoprazole Sodium (Protonix Tab) 40 mg QAM PO 11/14/17 09:00 12/14/17 08:59 11/15/17 10:17 40 MG Irbesartan (Avapro Tab) 75 mg QAM PO 11/14/17 09:00 12/14/17 08:59 11/15/17 10:16 75 MG Hydrochlorothiazide (Hydrochlorothiazide Tab) 6.25 mg QAM PO 11/14/17 09:00 12/14/17 08:59 11/15/17 10:16 6.25 MG Piperacillin Sod/ Tazobactam Sod (Consult) 1 ea UD PRN N/A 11/14/17 01:15 12/14/17 01:14 Piperacillin Sod/ Tazobactam Sod 3.375 gm/Dextrose 115 ml @ 28.75 mls/ hr Q8H IV 11/14/17 04:00 11/24/17 03:59 11/15/17 12:29 28.75 MLS/HR Vancomycin HCl 1250 mg/Sodium Chloride 275 ml @ 125 mls/hr Q16H IV 11/14/17 12:00 11/24/17 11:59 11/15/17 04:03 125 MLS/HR Insulin Aspart (novoLOG ASPART) SLIDING SCALE If C... ACHS SC 11/15/17 12:30 12/15/17 12:29 11/15/17 13:41 2 UNITS Review of Systems All systems were reviewed and are negative except as per HPI Abdomen: No diarrhea Physical Exam Date Time Temp Pulse Resp B/P (MAP) Pulse Ox O2 Delivery O2 Flow Rate FiO2 11/15/17 15:30 Room Air 11/15/17 15:04 36.7 91 18 104/62 (76) 93 Room Air 11/15/17 12:45 36.9 78 20 110/69 (83) 97 Room Air 11/15/17 11:45 92 18 97/61 (73) 95 Room Air 11/15/17 10:45 93 17 106/64 (78) 97 Nasal Cannula 2.0 11/15/17 10:15 95 16 105/66 (79) 94 Nasal Cannula 2.0 11/15/17 09:40 Nasal Cannula 2.0 11/15/17 09:40 92 Nasal Cannula 2.0 11/15/17 09:15 36.8 88 16 108/69 96 Nasal Cannula 2 11/15/17 09:05 86 16 115/66 98 Oxymask 10 11/15/17 08:55 90 16 119/72 97 Oxymask 10 11/15/17 08:48 37.1 94 16 131/70 99 Oxymask 10 11/15/17 07:38 36.8 87 19 111/66 (81) 98 Room Air 11/15/17 00:00 Room Air 11/14/17 22:49 37.6 103 16 131/73 (92) 94 Room Air General Appearance: WD/WN, no apparent distress Head: normocephalic, atraumatic Eyes: normal inspection, EOMI, sclerae normal ENT: normal ENT inspection, hearing grossly normal, pharynx normal Neck: supple, no adenopathy, thyroid normal, trachea midline Respiratory/Chest: chest non-tender, lungs clear, normal breath sounds, no respiratory distress Cardiovascular: regular rate, rhythm, no gallop, no murmur Abdomen/GI: normal bowel sounds, non tender, soft, no organomegaly Back: normal inspection, no CVA tenderness Extremities/Musculoskelatal: no calf tenderness, normal capillary refill, non- tender Neurologic/Psych: alert, normal mood/affect, oriented x 3 Skin: normal color, warm/dry, no rash, + pertinent finding (Surgical dressing intact left foot) Laboratory Results Date/Time Source Procedure Growth Status 11/15/17 08:30 Abscess Foot Left Gram Stain Pending Received 11/15/17 08:30 Abscess Foot Left Bacterial Culture Pending Received Last 24 Hours Test 11/14/17 20:28 11/14/17 23:52 11/15/17 05:42 11/15/17 05:54 Bedside Glucose 108 mg/dl 136 mg/dl 118 mg/dl Creatinine 1.02 mg/dl Est Creatinine Clear Calc Drug Dose 46.5 ml/min Estimated GFR () 61.9 Estimated GFR (Non- 53.4 Test 11/15/17 09:00 11/15/17 11:44 11/15/17 17:01 Bedside Glucose 134 mg/dl 202 mg/dl 87 mg/dl Patient Name: BROWN DONIS Unit Number: [id number] Dictated: 11/14/171032 Transcribed: 11/14/171032 PBS Printed Date/Time: [~ rep prt dt]/[~ rep prt tm] [~ rep ct labl] - [~ rep ct ivnm] [facility] [place] [address] Dictated: 11/14/171032 Transcribed: 11/14/171032 PBS Printed Date/Time: [~ rep prt dt]/[~ rep prt tm] [~ rep ct labl] - [~ rep ct ivnm] L FOOT MIN 3 VIEWS ROUTINE CLINICAL HISTORY: 77 years-old Female presenting with r/o osteo. TECHNIQUE: Frontal, oblique, and lateral views of the left foot were obtained. COMPARISON: 11/13/2017 and 09/04/2017. FINDINGS: Postsurgical changes of extensive plate and screw fixation of the midfoot and first and second metatarsals bridging the first and second tarsometatarsal articulations. Transarticular screw is noted extending from the base of the first metatarsal to the navicular. No gross evidence of hardware complication. Osteopenia noted. Diffuse soft tissue swelling along the medial aspect at the level of the midfoot unchanged. No new fracture or worsen malalignment. No gross evidence of osteolysis allowing for osteopenia. Linear radiolucency along the medial foot is unchanged from prior. Os peroneum noted. Prominent enthesophytes at the insertion of the Achilles tendon and origin of the plantar fascia. Atherosclerosis. IMPRESSION: 1. Soft tissue swelling most prominently along the medial aspect the level of the midfoot. Questionable subcutaneous emphysema along the medial aspect of the midfoot, although this is unchanged from prior radiograph. 2. Extensive internal fixation as detailed above. No gross evidence of hardware complication. 3. Allowing for osteopenia, no radiographic evidence of osteomyelitis. If there is continuing clinical concern, noncontrast MR could be obtained. Electronically signed by: Maynor Bryant M.D. 11/14/2017 10:39 AM Dictated Date/Time: 11/14/2017 10:33 AM The status of this report is Signed. Draft = Not yet reviewed or approved by Radiologist. Signed = Reviewed and approved by Radiologist. <AttendingPhy>Abdirahman Naranjo M.D.</AttendingPhy> <FamilyPhy>BRUNO MERRITT M.D.</FamilyPhy> <PrimaryPhy>BRUNO MERRITT M.D.</PrimaryPhy> <UnitNumber> [id number]</UnitNumber> <VisitNumber>[id number]</VisitNumber> <PatientName> BROWN DONIS</PatientName> <DateOfBirth>1940</DateOfBirth> <Location> C.MSN</Location> <ServiceDate>11/13/17</ServiceDate> <MNE>ESINDI</MNE> < OrderingPhy>Hyader Ruelas PAC</OrderingPhy> <OrderingPhyMNE>f rep ord dr jackson</ OrderingPhyMNE> <DictatingPhyMNE>f rep dict dr jackson</DictatingPhyMNE> <CCListMNE> f rep ct mne</CCListMNE> <AdmittingPhyMNE>f pt admit dr jackson</AdmittingPhyMNE> < AttendingPhyMNE>f pt attend dr jackson</AttendingPhyMNE> <ConsultingPhyMNE>f pt consult dr jackson</ConsultingPhyMNE> <FamilyPhyMNE>f pt fam dr jackson</FamilyPhyMNE> <OtherPhyMNE>f pt other dr jackson</OtherPhyMNE> < PrimaryPhyMNE>f pt prim care dr jackson</PrimaryPhyMNE> <ReferringPhyMNE>f pt referring dr jackson</ReferringPhyMNE> Assessment & Plan 77-year-old female with diabetes mellitus now status post left foot surgery with surgical site infection in the setting of indwelling hardware with cultures positive for Staph aureus. Patient will likely need prolonged antibiotic therapy, and suspect that IV therapy will be needed at least initially. Ultimate selection of antibiotics will be based on sensitivity data , hopefully available tomorrow. For now, vancomycin appropriate given isolation of Staph, and I will adjust once final sensitivities are available. Would recommend placement of PICC line. I have ordered sed rate, C reactive protein, and procalcitonin. Will discuss.
[2017-11-15] MEDS ORDERED: VANCOMYCIN TROUGH ONE (19:30)
[2017-11-16 03:35] VITALS: BP 111/67; PULSE 94; TEMP 37.2; O2SAT 92
[2017-11-16] MEDS: SODIUM CHLORIDE 0.9% 1000ML 1,000 ML IV SCH ×2 (04:10→14:23)
[2017-11-16] MEDS: PIPERACILL/TAZOBAC IV 3.375 GM in DEXTROSE 5% 100ML IV SCH ×2 (04:10→12:46)
[2017-11-16] MEDS: HEPARIN SOD 5000 UNIT/0.5 ML CARP SQ SCH ×3 (04:14→20:37)
[2017-11-16] MEDS: LEVOTHYROXINE 50 MCG TAB PO SCH (04:17)
[2017-11-16 06:20] LABS: BASO % 0.6 %; BASO ABS # 0.05 K/uL (0-0.2); EOS % 2.9 %; EOS ABS # 0.26 K/uL (0-0.5); HEMATOCRIT 34.6 % (37-47); HEMOGLOBIN 11.7 g/dL (12.0-16.0); IG# 0.02 K/uL (0.00-0.02); LYMPH % 27.2 %; LYMPH ABS # 2.43 K/uL (1.2-3.4); MEAN CELL VOLUME 88.7 fL (80-100); MEAN CORPUSCULAR HGB CONC 33.8 g/dl (32-36); MONO % 8.4 %; MONO ABS # 0.75 K/uL (0.11-0.59); NEUT % 60.7 %; NEUT ABS # 5.42 K/uL (1.4-6.5); PLATELET COUNT 236 K/uL (130-400); RED CELL DISTRIBUTION WIDTH CV 14.1 % (11.5-14.5); RED CELL DISTRIBUTION WIDTH SD 45.8 fL (36.4-46.3); WHITE BLOOD COUNT 8.93 K/uL (4.8-10.8)
[2017-11-16 06:44] LABS: ALBUMIN 2.7 gm/dl (3.4-5.0); CALCIUM 8.6 mg/dl (8.5-10.1); CREATININE 1.16 mg/dl (0.60-1.20); POTASSIUM 4.1 mmol/L (3.5-5.1)
[2017-11-16 06:46] LABS: TOTAL PROTEIN 6.4 gm/dl (6.4-8.2)
[2017-11-16 07:17] VITALS: BP 120/73; PULSE 86; TEMP 37.7; O2SAT 93
[2017-11-16] MEDS: PANTOprazole SOD 40 MG TAB PO SCH (09:04)
[2017-11-16] MEDS: CALCIUM 600MG + VIT D 400 IU TAB PO SCH (09:04)
[2017-11-16] MEDS: HYDROCHLOROTHIAZIDE 25 MG TAB PO SCH (09:05)
[2017-11-16] MEDS: MULTIVITAMIN TAB PO SCH (09:05)
[2017-11-16] MEDS: OMEGA-3 (PURIFIED FISH OIL) 1 GM CAP PO SCH (09:06)
[2017-11-16] MEDS: IRBESARTAN 150 MG TAB PO SCH (09:07)
[2017-11-16] MEDS: DULOXETINE (CYMBALTA) 30 MG CAP PO SCH (09:07)
[2017-11-16] MEDS: CYANOCOBALAMIN 500 MCG TAB (VIT B-12) PO SCH (09:07)
[2017-11-16] MEDS: GABAPENTIN 300 MG CAP PO SCH ×2 (09:07→20:39)
[2017-11-16] MEDS: CHOLECALCIFEROL 1000 INTER.UNIT TAB PO SCH (09:07)
[2017-11-16] MEDS: INSULIN ASPART 100 UNITS/ML 3 ML PEN SC SCH ×4 (09:12→21:00)
[2017-11-16 09:36] VITALS: TEMP 37
--- NOTE | 2017-11-16 10:36 | Orthopedic Progress Note ---
Orthopedic Progress Note Date of Service Nov 16, 2017. Subjective Post OP Day: 1 Reports: feeling well, pain controlled w PO medications, Denies: complaints, chest pain, SOB, nausea / vomiting, light headedness, calf pain Objective calves soft nontender, N/V intact, capillary refill less than 2 sec., dressing C /D/I, A&O x3, toes mobile Date Time Temp Pulse Resp B/P (MAP) Pulse Ox O2 Delivery O2 Flow Rate FiO2 11/16/17 09:36 37.0 11/16/17 07:30 Room Air 11/16/17 07:17 37.7 86 18 120/73 (89) 93 Room Air 11/16/17 03:35 37.2 94 18 111/67 (82) 92 Room Air 11/15/17 23:20 Room Air 11/15/17 22:48 36.9 99 18 126/64 (84) 93 Room Air 11/15/17 19:46 Room Air 11/15/17 19:15 37.3 91 16 109/60 (76) 94 Room Air 11/15/17 15:30 Room Air 11/15/17 15:04 36.7 91 18 104/62 (76) 93 Room Air 11/15/17 12:45 36.9 78 20 110/69 (83) 97 Room Air 11/15/17 11:45 92 18 97/61 (73) 95 Room Air 11/15/17 10:45 93 17 106/64 (78) 97 Nasal Cannula 2.0 Laboratory Results 24 Hours: Test 11/16/17 05:52 White Blood Count 8.93 K/uL Red Blood Count 3.90 M/uL Hemoglobin 11.7 g/dL Hematocrit 34.6 % Mean Corpuscular Volume 88.7 fL Mean Corpuscular Hemoglobin 30.0 pg Mean Corpuscular Hemoglobin Concent 33.8 g/dl Platelet Count 236 K/uL Mean Platelet Volume 10.0 fL Neutrophils (%) (Auto) 60.7 % Lymphocytes (%) (Auto) 27.2 % Monocytes (%) (Auto) 8.4 % Eosinophils (%) (Auto) 2.9 % Basophils (%) (Auto) 0.6 % Neutrophils # (Auto) 5.42 K/uL Lymphocytes # (Auto) 2.43 K/uL Monocytes # (Auto) 0.75 K/uL Eosinophils # (Auto) 0.26 K/uL Basophils # (Auto) 0.05 K/uL Assessment & Plan Assessment: POD #1, Left Foot I&D wound dehiscence with retained HW. Hypothyroidism, diabetes mellitus, hypertension, hypercholesterolemia, and a history of a deep venous thrombosis. Plan: PT/ OT PWB with post op shoe. Await final cultures, saph in recent past, on Zosyn Appreciate ID input As per medicine.
[2017-11-16 13:06] LABS: HEMATOCRIT 36.3 % (37-47); MEAN CELL VOLUME 88.8 fL (80-100); MEAN CORPUSCULAR HEMOGLOBIN 29.3 pg (25-34); MEAN CORPUSCULAR HGB CONC 33.1 g/dl (32-36); MEAN PLATELET VOLUME 9.6 fL (7.4-10.4); PLATELET COUNT 246 K/uL (130-400); RED CELL DISTRIBUTION WIDTH CV 14.1 % (11.5-14.5); WHITE BLOOD COUNT 6.97 K/uL (4.8-10.8)
[2017-11-16] MEDS ORDERED: CEFAZOLIN IV 2,000 MG in DEXTROSE 5% 50ML 50 ML IV SCH (14:15)
--- NOTE | 2017-11-16 14:46 | Progress Note ---
Internal Med Progress Note Date of Service: Nov 16, 2017. Provider Documentation: SUBJECTIVE: Patient seen and examined. Patient does not have acute pain. Discussed with the patient of the possibility for PICC line. Patient has not decided yet whether to agree or not to this intervention. OBJECTIVE: Exam: General- no acute distress Eyes- EOMI Neck- midline trachea, no JVD Lungs- CTABL, no wheezing Heart- RRR Abdomen- soft, nontender, + bowel sounds Extremities- left foot in dressing ASSESSMENT & PLAN: PMH of Diabetes, hypertension, dyslipidemia, deep venous thrombosis, foot surgery on the left, presenting with increased left swelling and drainage from the wound site. Left foot wound infection with cellulitis status post left foot surgery on 09/04. Left foot deep infection with partial wound dehiscence started on IV Vancomycin and Zosyn on 11/14/17 Blood culture 11/13/17 no growth to date Wound culture 11/14/17 Staph Aureus that is MSSA; Vancomycin Stopped on 11/16/17 as there is no apparent need for MRSA coverage. Zosyn continued 11/15/17 orthopedics performed: Irrigation and debridement Left Foot skin, subcutaneous fat and fascia; culture from surgery is Staph Aureus and sensitivities pending Infectious disease had recommended possibility of PICC line and outpatient IV antibiotics for further treatment but patient has not agreed to PICC line consent as of 11/16/17 Bilateral shoulder pain - resolved X ray: Degenerative changes of the acromioclavicular joint and evidence of chronic impingement of the rotator cuff. No acute osseous injury of the left shoulder Diabetes type 2 hold metformin continue sliding scale insulin, fingerstick glucose Hypertension Continue losartan/hydrochlorothiazide, hold aspirin for possible procedures. Dyslipidemia, on fish oil. Deep venous thrombosis history 20 years ago. heparin subcutaneous q. 8 for deep venous thrombosis prophylaxis. Full Code Disposition: Continue IV antibiotics until further cultures results return. Patient to remain in the hospital for now. Vital Signs: Date Time Temp Pulse Resp B/P (MAP) Pulse Ox O2 Delivery O2 Flow Rate FiO2 11/16/17 09:36 37.0 11/16/17 07:30 Room Air 11/16/17 07:17 37.7 86 18 120/73 (89) 93 Room Air 11/16/17 03:35 37.2 94 18 111/67 (82) 92 Room Air 11/15/17 23:20 Room Air 11/15/17 22:48 36.9 99 18 126/64 (84) 93 Room Air 11/15/17 19:46 Room Air 11/15/17 19:15 37.3 91 16 109/60 (76) 94 Room Air 11/15/17 15:30 Room Air 11/15/17 15:04 36.7 91 18 104/62 (76) 93 Room Air Lab Results: Results Past 24 Hours Test 11/15/17 17:01 11/15/17 19:15 11/15/17 20:25 11/16/17 05:52 Range/Units Bedside Glucose 87 139 70-90 mg/dl Procalcitonin < 0.05 0-0.5 ng/ml Vancomycin Level Trough 14.5 SEE COMMENT mcg/ml White Blood Count 8.93 4.8-10.8 K/uL Red Blood Count 3.90 4.2-5.4 M/uL Hemoglobin 11.7 12.0-16.0 g/dL Hematocrit 34.6 37-47 % Mean Corpuscular Volume 88.7 80-100 fL Mean Corpuscular Hemoglobin 30.0 25-34 pg Mean Corpuscular Hemoglobin Concent 33.8 32-36 g/dl Platelet Count 236 130-400 K/uL Mean Platelet Volume 10.0 7.4-10.4 fL Neutrophils (%) (Auto) 60.7 % Lymphocytes (%) (Auto) 27.2 % Monocytes (%) (Auto) 8.4 % Eosinophils (%) (Auto) 2.9 % Basophils (%) (Auto) 0.6 % Neutrophils # (Auto) 5.42 1.4-6.5 K/uL Lymphocytes # (Auto) 2.43 1.2-3.4 K/uL Monocytes # (Auto) 0.75 0.11-0.59 K/uL Eosinophils # (Auto) 0.26 0-0.5 K/uL Basophils # (Auto) 0.05 0-0.2 K/uL RDW Standard Deviation 45.8 36.4-46.3 fL RDW Coefficient of Variation 14.1 11.5-14.5 % Immature Granulocyte % (Auto) 0.2 % Immature Granulocyte # (Auto) 0.02 0.00-0.02 K/uL Sodium Level 138 136-145 mmol/L Potassium Level 4.1 3.5-5.1 mmol/L Chloride Level 107 98-107 mmol/L Carbon Dioxide Level 29 21-32 mmol/L Anion Gap 2.0 3-11 mmol/L Blood Urea Nitrogen 15 7-18 mg/dl Creatinine 1.16 0.60-1.20 mg/dl Est Creatinine Clear Calc Drug Dose 40.9 ml/min Estimated GFR () 53.0 Estimated GFR (Non- 45.7 BUN/Creatinine Ratio 12.9 10-20 Random Glucose 133 70-99 mg/dl Calcium Level 8.6 8.5-10.1 mg/dl Total Bilirubin 0.4 0.2-1 mg/dl Aspartate Amino Transf (AST/SGOT) 17 15-37 U/L Alanine Aminotransferase (ALT/SGPT) 22 12-78 U/L Alkaline Phosphatase 99 45-117 U/L Total Protein 6.4 6.4-8.2 gm/dl Albumin 2.7 3.4-5.0 gm/dl Globulin 3.7 2.5-4.0 gm/dl Albumin/Globulin Ratio 0.7 0.9-2 Test 11/16/17 08:12 11/16/17 12:06 11/16/17 12:54 Range/Units Bedside Glucose 126 151 70-90 mg/dl White Blood Count 6.97 4.8-10.8 K/uL Red Blood Count 4.09 4.2-5.4 M/uL Hemoglobin 12.0 12.0-16.0 g/dL Hematocrit 36.3 37-47 % Mean Corpuscular Volume 88.8 80-100 fL Mean Corpuscular Hemoglobin 29.3 25-34 pg Mean Corpuscular Hemoglobin Concent 33.1 32-36 g/dl RDW Standard Deviation 46.0 36.4-46.3 fL RDW Coefficient of Variation 14.1 11.5-14.5 % Platelet Count 246 130-400 K/uL Mean Platelet Volume 9.6 7.4-10.4 fL
[2017-11-16 15:07] VITALS: BP 105/65; PULSE 93; TEMP 37; O2SAT 96
[2017-11-16] MEDS ORDERED: POLYETHYLENE (MIRALAX) 17 GM PACK PO PRN (16:15)
[2017-11-16] MEDS: CEFAZOLIN IV 2,000 MG in SYRINGE 0 ML IV SCH (18:10)
[2017-11-16] MEDS: ACETAMINOPHEN 325 MG TAB PO PRN (19:26)
[2017-11-16] MEDS ORDERED: LACTULOSE SYRUP 10 GM/15 ML BTL 473 ML PO PRN (22:00)
[2017-11-16] MEDS ORDERED: BISACODYL 10 MG SUPP PR PRN (22:00)
[2017-11-16 23:08] VITALS: BP 129/65; PULSE 100; TEMP 37.6; O2SAT 94
[2017-11-16 23:20] VITALS: TEMP 37.4
[2017-11-17] MEDS: CEFAZOLIN IV 2,000 MG in SYRINGE 0 ML IV SCH ×3 (01:50→18:16)
[2017-11-17] MEDS: SODIUM CHLORIDE 0.9% 1000ML 1,000 ML IV SCH ×2 (01:50→15:12)
[2017-11-17] MEDS: LEVOTHYROXINE 50 MCG TAB PO SCH (05:07)
[2017-11-17] MEDS: HEPARIN SOD 5000 UNIT/0.5 ML CARP SQ SCH ×3 (05:11→20:48)
[2017-11-17 06:00] LABS: HEMATOCRIT 35.7 % (37-47); HEMOGLOBIN 11.7 g/dL (12.0-16.0); MEAN CELL VOLUME 87.5 fL (80-100); MEAN CORPUSCULAR HEMOGLOBIN 28.7 pg (25-34); MEAN CORPUSCULAR HGB CONC 32.8 g/dl (32-36); MEAN PLATELET VOLUME 9.6 fL (7.4-10.4); PLATELET COUNT 271 K/uL (130-400); RED CELL DISTRIBUTION WIDTH CV 13.7 % (11.5-14.5); RED CELL DISTRIBUTION WIDTH SD 43.9 fL (36.4-46.3); WHITE BLOOD COUNT 6.66 K/uL (4.8-10.8)
[2017-11-17 06:53] VITALS: BP 110/74; PULSE 83; TEMP 37.5; O2SAT 95
[2017-11-17] MEDS: CHOLECALCIFEROL 1000 INTER.UNIT TAB PO SCH (08:16)
[2017-11-17] MEDS: PANTOprazole SOD 40 MG TAB PO SCH (08:16)
[2017-11-17] MEDS: DULOXETINE (CYMBALTA) 30 MG CAP PO SCH (08:16)
[2017-11-17] MEDS: MULTIVITAMIN TAB PO SCH (08:16)
[2017-11-17] MEDS: CYANOCOBALAMIN 500 MCG TAB (VIT B-12) PO SCH (08:17)
[2017-11-17] MEDS: OMEGA-3 (PURIFIED FISH OIL) 1 GM CAP PO SCH (08:17)
[2017-11-17] MEDS: CALCIUM 600MG + VIT D 400 IU TAB PO SCH (08:17)
[2017-11-17] MEDS: HYDROCHLOROTHIAZIDE 25 MG TAB PO SCH (08:17)
[2017-11-17] MEDS: IRBESARTAN 150 MG TAB PO SCH (08:18)
[2017-11-17] MEDS: GABAPENTIN 300 MG CAP PO SCH ×2 (08:19→20:47)
[2017-11-17] MEDS: INSULIN ASPART 100 UNITS/ML 3 ML PEN SC SCH ×4 (08:23→20:46)
--- NOTE | 2017-11-17 12:03 | Clinical Documentation Query ---
CLINICAL DOCUMENTATION QUERY A 77 yo female admitted with sepsis secondary to a left foot wound infection with cellulits status post surgery on 09/04/17. In your clinical opinion is this patient being managed for: ( ) Complication following surgical procedure ( ) Not Agree ( ) Other explanation of clinical findings (Please Explain) ( x) Unable to determine (Please Define) ( ) Need to Discuss I do not know if foot infection is due to the surgery The medical record reflects the following clinical findings, treatment, and risk factors. Clinical Indicators: Cellulitis and deep wound infection to surgical site Treatment: I&D, IV antibiotics, IV hydration, blood and wound cultures Risk Factors: Age, surgical procedure Please clarify and document your clinical opinion in the progress notes and discharge summary. Terms such as "probable", "suspected", "likely", "questionable", "possible", or "still to be ruled out" are acceptable. IF IN AGREEMENT, YOU MUST DOCUMENT ABOVE DIAGNOSTIC STATEMENT IN DAILY PROGRESS NOTES AND DISCHARGE SUMMARY. This document is not part of the patient's record. Thank You, Sophia Aguilar RN [phone]
--- NOTE | 2017-11-17 13:31 | Orthopedic Progress Note ---
Orthopedic Progress Note Date of Service Nov 17, 2017. Subjective Post OP Day: 2 Reports: feeling well, Denies: complaints Objective dressing C/D/I, A&O x3, toes mobile New dressing just applied to wound by Dr Yost/Cassie Estrada from wound care. Date Time Temp Pulse Resp B/P (MAP) Pulse Ox O2 Delivery O2 Flow Rate FiO2 11/17/17 08:15 Room Air 11/17/17 06:53 37.5 83 18 110/74 (86) 95 Room Air 11/16/17 23:40 Room Air 11/16/17 23:20 37.4 11/16/17 23:08 37.6 100 16 129/65 (86) 94 Room Air 11/16/17 15:25 Room Air 11/16/17 15:07 37.0 93 18 105/65 (78) 96 Room Air Laboratory Results 24 Hours: Test 11/17/17 05:36 Hematocrit 35.7 % Hemoglobin 11.7 g/dL Additional Notes: RUN DATE: 11/17/17 [facility] LAB PAGE 1 RUN TIME: 0832 Specimen Inquiry PATIENT: BROWN DONIS LOC: SARAH U # : [id number] AGE/SX: 77/F ROOM: N378 REG : 11/13/[address]: Joby Olson MD : 1940 BED: 2 DIS : STATUS: ADM IN TLOC: SPEC #: [id number] LAURA: 11/15/17 STATUS: RES REQ #: [id number] RECD: 11/15/17 [facility] DR: Abdirahman Naranjo M.D. SOURCE: ABSCESS ENTR: 11/15/17 [facility] DR: Jacob Cordero D.O. SPDESC: FOOT LEFT BRUNO MERRITT M.D., Robin A., MD Patterson, Jennifer., Hayder Thakur, DO ORDERED: AER/JULY CULTSMR Procedure Result Verified Site GRAM STAIN Final 11/16/17 RESULT MODERATE POLYS RARE GRAM POSITIVE COCCI OR AER/JULY CULT Preliminary 11/17/17 Organism 1 STAPHYLOCOCCUS AUREUS QUANITY FEW SENS SENSITIVITY TO FOLLOW Organism 2 GRAM NEGATIVE BACILLI QUANITY FEW SENS SENSITIVITY TO FOLLOW 1. STAPHYLOCOCCUS AUREUS Target Route Dose RX AB Cost M.I.C. IQ ------ ----- ------ -- ------ -------- - ------ TRIMET/SULFA S <=0.5/ 9.5 * OXACILLIN S 1 VANCOMYCIN S 1 ERYTHROMYCIN R >4 TETRACYCLINE S <=4 CLINDAMYCIN S <=0.5 DAPTOMYCIN S <=0.5 S = SENSITIVE I = INTERMEDIATE R = RESISTANT Assessment & Plan Assessment: POD #2, Left Foot I&D wound dehiscence with retained HW. Hypothyroidism, diabetes mellitus, hypertension, hypercholesterolemia, and a history of a deep venous thrombosis. Plan: PT/ OT PWB with post op shoe. Await final cultures - noted above Antibx as per ID Team. As per medicine.
[2017-11-17 15:04] VITALS: BP 113/65; PULSE 87; TEMP 37.2; O2SAT 96
--- NOTE | 2017-11-17 15:20 | Progress Note ---
Internal Med Progress Note Date of Service: Nov 17, 2017. Provider Documentation: SUBJECTIVE: Seen and examined at bedside Doing well today Denies Left foot pain Also denies chest pain, SOB, dizziness Reports constipation No other complaints OBJECTIVE: Vital Signs-as noted below Physical Exam: General Appearance:Moderately built and nourished, no apparent distress Head: normocephalic, Atraumatic Eyes: normal inspection, EOMI, PERRL Neck: supple, Trachea midline Respiratory/Chest: Normal breath sounds, CTA Cardiovascular: S1, S2, No murmur Abdomen/GI:Soft, Non tender, Bowel sounds present Extremities/Musculoskelatal:normal inspection, no edema, Left foot in bandage Neurologic/Psych:AAOX3, grossly no focal neurological deficits Skin: normal color, warm Lab data as noted below. ASSESSMENT & PLAN: Patient is a 77 yr female with PMH of Diabetes, hypertension, dyslipidemia, deep venous thrombosis, foot surgery on the left, presenting with increased left swelling and drainage from the wound site. Left foot Cellulitis S/P I&D wound dehiscence with retained HW Blood culture: No growth Wound Culture: Staph aureus, gram negative bacilli Appreciate ID, Orthopedics and Wound Care help Continue IV antibiotics per ID PICC line will be placed Needs prolonged IV antibiotics Bilateral shoulder pain: resolved X ray: Degenerative changes of the acromioclavicular joint and evidence of chronic impingement of the rotator cuff. No acute osseous injury of the left shoulder DM II: hold metformin continue sliding scale insulin, fingerstick glucose Hypertension Continue losartan/hydrochlorothiazide Dyslipidemia on fish oil. Deep venous thrombosis history 20 years ago. heparin SQ for DVT Px Code Status: Full Code Disposition: Awaiting for final cultures to decide of IV antibiotics upon discharge Vital Signs: Date Time Temp Pulse Resp B/P (MAP) Pulse Ox O2 Delivery O2 Flow Rate FiO2 11/17/17 15:04 37.2 87 16 113/65 (81) 96 Room Air 11/17/17 08:15 Room Air 11/17/17 06:53 37.5 83 18 110/74 (86) 95 Room Air 11/16/17 23:40 Room Air 11/16/17 23:20 37.4 11/16/17 23:08 37.6 100 16 129/65 (86) 94 Room Air 11/16/17 15:25 Room Air Lab Results: Results Past 24 Hours Test 11/16/17 16:56 11/16/17 20:53 11/17/17 05:36 11/17/17 08:01 Range/Units Bedside Glucose 109 155 131 70-90 mg/dl White Blood Count 6.66 4.8-10.8 K/uL Red Blood Count 4.08 4.2-5.4 M/uL Hemoglobin 11.7 12.0-16.0 g/dL Hematocrit 35.7 37-47 % Mean Corpuscular Volume 87.5 80-100 fL Mean Corpuscular Hemoglobin 28.7 25-34 pg Mean Corpuscular Hemoglobin Concent 32.8 32-36 g/dl RDW Standard Deviation 43.9 36.4-46.3 fL RDW Coefficient of Variation 13.7 11.5-14.5 % Platelet Count 271 130-400 K/uL Mean Platelet Volume 9.6 7.4-10.4 fL Test 11/17/17 11:53 Range/Units Bedside Glucose 110 70-90 mg/dl
[2017-11-17] MEDS: ACETAMINOPHEN 325 MG TAB PO PRN ×2 (18:16→23:19)
[2017-11-17 23:09] VITALS: BP 125/77; PULSE 89; TEMP 37.1; O2SAT 96
[2017-11-18] MEDS: CEFAZOLIN IV 2,000 MG in SYRINGE 0 ML IV SCH ×2 (01:50→09:31)
[2017-11-18] MEDS: HEPARIN SOD 5000 UNIT/0.5 ML CARP SQ SCH ×2 (03:55→12:26)
[2017-11-18] MEDS: LEVOTHYROXINE 50 MCG TAB PO SCH (05:38)
[2017-11-18 06:18] LABS: CALCIUM 9.5 mg/dl (8.5-10.1); CREATININE 1.36 mg/dl (0.60-1.20); POTASSIUM 4.2 mmol/L (3.5-5.1)
[2017-11-18 07:46] VITALS: BP 122/74; PULSE 74; TEMP 36.9; O2SAT 96
[2017-11-18 08:33] VITALS: O2SAT 96
[2017-11-18] MEDS: PANTOprazole SOD 40 MG TAB PO SCH (09:00)
[2017-11-18] MEDS: MULTIVITAMIN TAB PO SCH (09:21)
[2017-11-18] MEDS: DULOXETINE (CYMBALTA) 30 MG CAP PO SCH (09:22)
[2017-11-18] MEDS: CYANOCOBALAMIN 500 MCG TAB (VIT B-12) PO SCH (09:22)
[2017-11-18] MEDS: CALCIUM 600MG + VIT D 400 IU TAB PO SCH (09:22)
[2017-11-18] MEDS: CHOLECALCIFEROL 1000 INTER.UNIT TAB PO SCH (09:22)
[2017-11-18] MEDS: OMEGA-3 (PURIFIED FISH OIL) 1 GM CAP PO SCH (09:23)
[2017-11-18] MEDS: GABAPENTIN 300 MG CAP PO SCH (09:23)
[2017-11-18] MEDS: HYDROCHLOROTHIAZIDE 25 MG TAB PO SCH (09:24)
[2017-11-18] MEDS: IRBESARTAN 150 MG TAB PO SCH (09:25)
[2017-11-18] MEDS: INSULIN ASPART 100 UNITS/ML 3 ML PEN SC SCH ×2 (09:32→12:48)
--- NOTE | 2017-11-18 10:16 | Infectious Disease Progress Nt ---
Progress Note Date of Service Nov 18, 2017. Subjective Pt evaluation today including: conversation w/ patient, physical exam, chart review, lab review, review of studies, conversation w/ application consultant, review of inpatient medication list Patient offering no new complaints today. Pain controlled. No fever. Has been tolerating antibiotics without apparent difficulty. Cultures growing methicillin sensitive Staph aureus and E coli. All Other Systems: Reviewed and Negative Medications Current Inpatient Medications Medications (Trade) Dose Ordered Sig/Shannon Route Start Time Stop Time Status Last Admin Dose Admin Tramadol HCl (Ultram Tab) 50 mg Q6H PRN PO 11/13/17 23:00 12/13/17 22:59 11/14/17 19:39 50 MG Glucose (Glucose 40% Gel) 15-30 GRAMS 15 GRAMS... UD PRN PO 11/13/17 23:00 12/13/17 22:59 Glucose (Glucose Chew Tab) 4-8 Tablets 4 Tabl... UD PRN PO 11/13/17 23:00 12/13/17 22:59 Dextrose (Dextrose 50% 50ML Syringe) 25-50ML OF 50% DW IV FOR... UD PRN IV 11/13/17 23:00 12/13/17 22:59 Glucagon (Glucagon Inj) 1 mg UD PRN SQ 11/13/17 23:00 12/13/17 22:59 Heparin Sodium (Porcine) (Heparin Sq 5000 Unit/0.5ml) 5,000 unit Q8H SQ 11/14/17 08:00 12/14/17 07:59 11/18/17 03:55 5,000 UNIT Acetaminophen (Tylenol Tab) 650 mg Q4H PRN PO 11/13/17 23:00 12/13/17 22:59 11/17/17 23:19 650 MG Ondansetron HCl (Zofran Inj) 4 mg Q6H PRN IV 11/13/17 23:00 12/13/17 22:59 11/17/17 05:55 4 MG Calcium/Vitamin D (Caltrate Plus Tab) 1 tab QAM PO 11/14/17 09:00 12/14/17 08:59 11/18/17 09:22 1 TAB Duloxetine HCl (Cymbalta Cap) 30 mg QAM PO 11/14/17 09:00 12/14/17 08:59 11/18/17 09:22 30 MG Fish Oil ([place]-3 (Purified Fish Oil) Cap) 1 gm QAM PO 11/14/17 09:00 12/14/17 08:59 11/18/17 09:23 1 GM Gabapentin (Neurontin Cap) 600 mg BID PO 11/14/17 09:00 12/14/17 08:59 11/18/17 09:23 600 MG Levothyroxine Sodium (Synthroid Tab) 50 mcg DAILYBB PO 11/14/17 06:00 12/14/17 05:59 11/18/17 05:38 50 MCG Multivitamins (Multivitamin Tab) 1 tab QAM PO 11/14/17 09:00 12/14/17 08:59 11/18/17 09:21 1 TAB Cholecalciferol (Vitamin D Tab) 1,000 inter.unit QAM PO 11/14/17 09:00 12/14/17 08:59 11/18/17 09:22 1,000 INTER.UNIT Cyanocobalamin (Vitamin B-12 Tab) 500 mcg QAM PO 11/14/17 09:00 12/14/17 08:59 11/18/17 09:22 500 MCG Pantoprazole Sodium (Protonix Tab) 40 mg QAM PO 11/14/17 09:00 12/14/17 08:59 11/17/17 08:16 40 MG Irbesartan (Avapro Tab) 75 mg QAM PO 11/14/17 09:00 12/14/17 08:59 11/18/17 09:25 75 MG Hydrochlorothiazide (Hydrochlorothiazide Tab) 6.25 mg QAM PO 11/14/17 09:00 12/14/17 08:59 11/18/17 09:24 6.25 MG Insulin Aspart (novoLOG ASPART) SLIDING SCALE If C... ACHS SC 11/15/17 12:30 12/15/17 12:29 11/18/17 09:32 3 UNITS Cefazolin Sodium 2000 mg/Syringe 10 ml @ 2.5 mls/min Q8H IV 11/16/17 18:00 12/28/17 17:59 11/18/17 09:31 2.5 MLS/MIN Polyethylene (Miralax Powder Packet) 17 gm DAILY PRN PO 11/16/17 16:15 12/16/17 16:14 11/16/17 18:10 17 GM Bisacodyl (Dulcolax Supp) 10 mg DAILY PRN NV 11/16/17 22:00 12/16/17 21:59 11/17/17 06:08 10 MG Lactulose (Chronulac Syrup) 15 gm Q6H PRN PO 11/16/17 22:00 12/16/17 21:59 Heparin Sodium (Porcine) (Heparin 10 Unit/ ml 5 ml Flush) 5 ml PRN PRN FLUSH 11/17/17 19:45 12/17/17 19:44 11/18/17 09:35 5 ML Objective Vital Signs Date Time Temp Pulse Resp B/P (MAP) Pulse Ox O2 Delivery O2 Flow Rate FiO2 11/18/17 08:33 96 Room Air 11/18/17 07:46 36.9 74 16 122/74 (90) 96 Room Air 11/18/17 07:30 Room Air 11/17/17 23:20 Room Air 11/17/17 23:09 37.1 89 14 125/77 (93) 96 Room Air 11/17/17 15:15 Room Air 11/17/17 15:04 37.2 87 16 113/65 (81) 96 Room Air Physical Exam General Appearance: WD/WN, no apparent distress Eyes: normal inspection, EOMI, sclerae normal ENT: normal ENT inspection, pharynx normal Neck: supple, no adenopathy, thyroid normal, trachea midline Respiratory/Chest: chest non-tender, lungs clear, normal breath sounds, no respiratory distress Cardiovascular: regular rate, rhythm, no gallop, no murmur Abdomen: normal bowel sounds, non tender, soft, no organomegaly Extremities: non-tender, no calf tenderness Neurologic/Psychiatric: alert, oriented x 3 Skin: normal color, no rash, + pertinent finding (Surgical dressing intact with ) Lymphatic: no adenopathy Laboratory Results RUN DATE: 11/18/17 [facility] LAB PAGE 1 RUN TIME: 0805 Specimen Inquiry PATIENT: BROWN DONIS LOC: SARAH U # : [id number] AGE/SX: 77/F ROOM: [facility] REG : 11/13/[address]: Joby Olson MD : [id number] BED: 2 DIS : STATUS: ADM IN TLOC: SPEC #: [id number] LAURA: 11/15/17 STATUS: RES REQ #: [id number] RECD: 11/15/[address]: Abdirahman Naranjo M.D. SOURCE: ABSCESS ENTR: 11/15/[address]: Jacob Cordero D.O. SPDESC: FOOT LEFT [facility] Reyes M.D., Robin A., MD Patterson, Jennifer., D.O. Shaw, Mark R., DO ORDERED: AER/JULY CULTSMR Procedure Result Verified Site GRAM STAIN Final 11/16/17-723 RESULT MODERATE POLYS RARE GRAM POSITIVE COCCI OR AER/JULY CULT Preliminary 11/18/17-804 Organism 1 STAPHYLOCOCCUS AUREUS QUANITY FEW SENS SENSITIVITY TO FOLLOW Organism 2 ESCHERICHIA COLI QUANITY FEW SENS SENSITIVITY TO FOLLOW STAPH AUR E COLI M.I.C. RX M.I.C. RX --------- ------ --------- ------ TRIMET/SULFA <=0.5/9.5 S <=2/38 S AMPICILLIN <=8 S * OXACILLIN 1 S AMPICILLIN/SUL <=8/4 S CEFAZOLIN <=8 S CEFOXITIN <=8 S CEFOTAXIME <=2 S CEFTRIAXONE <=1 S CEFEPIME <=4 S CEFUROXIME 8 S IMIPENEM <=1 S VANCOMYCIN 1 S GENTAMICIN <=4 S TOBRAMYCIN <=4 S ERYTHROMYCIN >4 R TETRACYCLINE <=4 S AMIKACIN <=16 S CIPROFLOXACIN <=1 S LEVOFLOXACIN <=2 S CLINDAMYCIN <=0.5 S ERTAPENEM <=1 S DAPTOMYCIN <=0.5 S PIP/TAZO <=16 S CONTINUED ON NEXT PAGE RUN DATE: 11/18/17 [facility] LAB PAGE 2 RUN TIME: 804 Specimen Inquiry SPEC: [id number] PATIENT: BROWN DONIS [id number] ( Continued) Procedure Result Verified Site OR AER/JULY CULT Preliminary (continued) 11/18/17 1. STAPHYLOCOCCUS AUREUS Target Route Dose RX AB Cost M.I.C. IQ ------ ----- ------ -- ------ -------- - ------ TRIMET/SULFA S <=0.5/ 9.5 * OXACILLIN S 1 VANCOMYCIN S 1 ERYTHROMYCIN R >4 TETRACYCLINE S <=4 CLINDAMYCIN S <=0.5 DAPTOMYCIN S <=0.5 2. ESCHERICHIA COLI Target Route Dose RX AB Cost M.I.C. IQ ------ ----- ------ -- ------ -------- - ------ TRIMET/SULFA S <=2/38 AMPICILLIN S <=8 AMPICILLIN/SUL S <=8/4 CEFAZOLIN S <=8 CEFOXITIN S <=8 CEFOTAXIME S <=2 CEFTRIAXONE S <=1 CEFEPIME S <=4 CEFUROXIME S 8 IMIPENEM S <=1 GENTAMICIN S <=4 TOBRAMYCIN S <=4 AMIKACIN S <=16 CIPROFLOXACIN S <=1 LEVOFLOXACIN S <=2 ERTAPENEM S <=1 PIP/TAZO S <=16 S = SENSITIVE I = INTERMEDIATE R = RESISTANT Last 24 Hours Test 11/17/17 11:53 11/17/17 17:10 11/17/17 20:38 11/18/17 05:26 Bedside Glucose 110 mg/dl 121 mg/dl 147 mg/dl Sodium Level 140 mmol/L Potassium Level 4.2 mmol/L Chloride Level 105 mmol/L Carbon Dioxide Level 28 mmol/L Anion Gap 7.0 mmol/L Blood Urea Nitrogen 22 mg/dl Creatinine 1.36 mg/dl Est Creatinine Clear Calc Drug Dose 34.9 ml/min Estimated GFR () 43.7 Estimated GFR (Non- 37.7 BUN/Creatinine Ratio 16.0 Random Glucose 130 mg/dl Calcium Level 9.5 mg/dl Magnesium Level 1.9 mg/dl Test 11/18/17 08:33 Bedside Glucose 141 mg/dl Assessment and Plan 77-year-old female with diabetes mellitus now status post left foot surgery with surgical site infection in the setting of indwelling hardware with cultures positive for Staph aureus and E coli. Given indwelling hardware, feel that patient should receive prolonged course of IV antibiotics, and have changed to IV ceftriaxone 2 g daily to allow easier outpatient therapy. Would like to see patient at the wound Care Center in 2-3 weeks.
[2017-11-18] MEDS ORDERED: CEFTRIAXONE SOD INJ 2,000 MG in DEXTROSE 5% 50ML 50 ML IV SCH (11:00)
--- NOTE | 2017-11-18 12:04 | Orthopedic Progress Note ---
Orthopedic Progress Note Date of Service Nov 18, 2017. Subjective Post OP Day: 3 Reports: feeling well, Denies: complaints Objective Optifoam dressing removed. Mild drainage noted on Aquacel/Optifoam dressing. No foul odor. Mild yellow slough on a portion of the wound. Mild erythema. Redressed. Date Time Temp Pulse Resp B/P (MAP) Pulse Ox O2 Delivery O2 Flow Rate FiO2 11/18/17 08:33 96 Room Air 11/18/17 07:46 36.9 74 16 122/74 (90) 96 Room Air 11/18/17 07:30 Room Air 11/17/17 23:20 Room Air 11/17/17 23:09 37.1 89 14 125/77 (93) 96 Room Air 11/17/17 15:15 Room Air 11/17/17 15:04 37.2 87 16 113/65 (81) 96 Room Air Assessment & Plan Assessment: POD #3, Left Foot I&D wound dehiscence with retained HW. Hypothyroidism, diabetes mellitus, hypertension, hypercholesterolemia, and a history of a deep venous thrombosis. Plan: No plans for further washout at this time. Pt to follow up with Dr Yost and Radha next week in [facility] Daily dressing changes as per instruction of wound care team PT/ OT PWB with post op shoe. Await final cultures Antibx as per ID Team. As per medicine.
--- NOTE | 2017-11-18 12:46 | Progress Note ---
Internal Med Progress Note Date of Service: Nov 18, 2017. Provider Documentation: SUBJECTIVE: Seen and examined at bedside No new complaints Denies Left foot pain Also denies chest pain, SOB, dizziness Discussed with today OBJECTIVE: Vital Signs-as noted below Physical Exam: General Appearance:Moderately built and nourished, no apparent distress Head: normocephalic, Atraumatic Eyes: normal inspection, EOMI, PERRL Neck: supple, Trachea midline Respiratory/Chest: Normal breath sounds, CTA Cardiovascular: S1, S2, No murmur Abdomen/GI:Soft, Non tender, Bowel sounds present Extremities/Musculoskelatal:normal inspection, no edema, Left foot in bandage Neurologic/Psych:AAOX3, grossly no focal neurological deficits Skin: normal color, warm Lab data as noted below. ASSESSMENT & PLAN: Patient is a 77 yr female with PMH of Diabetes, hypertension, dyslipidemia, deep venous thrombosis, foot surgery on the left, presenting with increased left swelling and drainage from the wound site. Left foot Cellulitis S/P I&D wound dehiscence with retained HW Blood culture: No growth Wound Culture: Staph aureus, E.coli Appreciate ID, Orthopedics and Wound Care help Continue IV antibiotics per ID PICC line was placed Needs prolonged IV antibiotics: Ceftriaxone 2gm daily for 6 weeks. Discussed with Needs follow up with and Reji Bilateral shoulder pain: resolved X ray: Degenerative changes of the acromioclavicular joint and evidence of chronic impingement of the rotator cuff. No acute osseous injury of the left shoulder DM II: hold metformin continue sliding scale insulin, fingerstick glucose Hypertension Continue losartan/hydrochlorothiazide Dyslipidemia on fish oil. Deep venous thrombosis history 20 years ago. heparin SQ for DVT Px Code Status: Full Code Disposition: Plan to discharge home today Follow up with your Primary care in 1 week Follow up with Wound Care clinic in 1 week Follow up with Infectious disease in 2 weeks Complete the antibiotic course as prescribed Seek immediate medical attention if your symptoms reoccur or worsen Vital Signs: Date Time Temp Pulse Resp B/P (MAP) Pulse Ox O2 Delivery O2 Flow Rate FiO2 11/18/17 08:33 96 Room Air 11/18/17 07:46 36.9 74 16 122/74 (90) 96 Room Air 11/18/17 07:30 Room Air 1/2/18 23:20 Room Air 11/17/17 23:09 37.1 89 14 125/77 (93) 96 Room Air 11/17/17 15:15 Room Air 11/17/17 15:04 37.2 87 16 113/65 (81) 96 Room Air Lab Results: Results Past 24 Hours Test 11/17/17 17:10 11/17/17 20:38 11/18/17 05:26 11/18/17 08:33 Range/Units Bedside Glucose 121 147 141 70-90 mg/dl Sodium Level 140 136-145 mmol/L Potassium Level 4.2 3.5-5.1 mmol/L Chloride Level 105 98-107 mmol/L Carbon Dioxide Level 28 21-32 mmol/L Anion Gap 7.0 3-11 mmol/L Blood Urea Nitrogen 22 7-18 mg/dl Creatinine 1.36 0.60-1.20 mg/dl Est Creatinine Clear Calc Drug Dose 34.9 ml/min Estimated GFR () 43.7 Estimated GFR (Non- 37.7 BUN/Creatinine Ratio 16.0 10-20 Random Glucose 130 70-99 mg/dl Calcium Level 9.5 8.5-10.1 mg/dl Magnesium Level 1.9 1.8-2.4 mg/dl Test 11/18/17 12:08 Range/Units Bedside Glucose 161 70-90 mg/dl
[2017-11-18] MEDS ORDERED: MRLP17X PO (13:05)
--- NOTE | 2017-11-18 13:10 | Discharge Summary ---
Discharge Summary Date of Service Nov 18, 2017. Discharge Summary Admission Date: Nov 13, 2017 at 22:50 Discharge Date: Nov 18, 2017 Discharge Disposition: Home with services Principal Diagnosis: Left Foot Cellulitis Procedures: Irrigation and debridement Left Foot skin, subcutaneous fat and fascia Consultations: Ortho, ID, wound care Pending Studies/Follow-Up: Follow up with your Primary care in 1 week Follow up with Wound Care clinic in 1 week Follow up with Infectious disease in 2 weeks Complete the antibiotic course as prescribed Seek immediate medical attention if your symptoms reoccur or worsen Medication Reconciliation New Medications: Polyethylene (Miralax) 17 Gm Pow 17 GM PO DAILY PRN for Constipation for 7 Days, #7 EA Continued Medications: Aspirin (Aspirin Chewable) 81 Mg Chew 81 MG PO QPM, TAB PT GIVEN INSTRUCTIONS BY DR RIVERA TO CONTINUE ASPIRIN PRIOR TO SURGERY - DO NOT STOP Calcium/Vitamin D (Os-Nam 500 Plus D) Tab 1 TAB PO QAM, TAB Cholecalciferol (D3) 1,000 Unit Cap 1 CAP PO QAM Cyanocobalamin (B-12) 500 Mcg Sub 1 DOSE SL QAM Duloxetine HCl (Cymbalta) 30 Mg Cap 1 CAP PO QAM for 30 Days, #30 CAP 2 Refills Fish Oil ([place]-3) 1 Ea Cap 1 CAP PO QAM, CAP PT ALREADY STOPPED THIS MED PER DR RIVERA INSTRUCTIONS Gabapentin (Neurontin) 300 Mg Cap 2 TAB PO BID, CAP Garlic (Garlic) 1,000 Mg Cap 1 CAP PO QAM Irbesartan-Hydrochlorothiazide (Avalide) 1 Tab Tab 0.5 TAB PO QAM, TAB PT MED LIST READS 150/12.5 Levothyroxine Sodium (Levothyroxine Sodium) 50 Mcg Tab 1 TAB PO QAM for 90 Days, #90 TAB 3 Refills Metformin Hcl (Glucophage) 500 Mg Tab 500 MG PO BID, TAB Multivitamin (Multivitamin) Tab 1 TAB PO QAM, TAB Omeprazole (Prilosec) 20 Mg Capcr 20 MG PO QAM, CAP Potassium Gluconate (Potassium Gluconate) 550 Mg Tab 1 TAB PO QAM Promethazine Hcl (Phenergan) 25 Mg Tab 25 MG PO Q6H PRN for Nausea, #20 TAB Admission Information HPI (per Admitting provider): HISTORY OF PRESENT ILLNESS: The patient is a pleasant 77-year-old female with a history of diabetes, hypertension, dyslipidemia, and DVT, presenting with increasing leg foot swelling and drainage x2 days. Primary care is Dr. Rivera for ortho. The patient underwent a left foot reconstructive surgery on 09/04/[address] Rivera and was discharged to home. Her last followup visit with Dr. Rivera was last week and according to the patient, everything was looking fine. Starting yesterday, the patient started to note increased swelling on the left foot, especially on the wound site and also increased seepage of serosanguineous fluid. She denies having fevers, chills, nausea, vomiting, chest pain, shortness of breath, dizziness. At the ER, the patient was received afebrile, but was tachycardic at 107 and white count of 16.17. X-ray of the left foot did not show any signs of bony destruction, but did show soft tissue edema. She was given vancomycin and Zosyn at the ER and was referred to hospitalist for admission. When I examined the patient, she reports that her pain is about 4/10 on the left foot. Denies having any active shortness of breath, chest pain, nausea, vomiting, dizziness or any other symptoms. She does report some left shoulder pain, which started once and she was not able to ambulate properly with the left foot swelling and is using more upper body to ambulate. She was in a wheelchair after the foot surgery, and in the last week has been trying to use a cane. Physical Exam (per Admitting): PHYSICAL EXAMINATION: VITAL SIGNS: Blood pressure is 110/91, pulse rate of 102, temperature 36.7, respiratory rate of 14, saturating 95% on room air. GENERAL: The patient is awake, alert, oriented x3, not in distress, speaks in sentences. No accessory muscle use. HEAD AND NECK: Atraumatic and normocephalic. Normal pupils. Full EOMs. No icterus. [place] conjunctivae. ENT: Grossly normal. NECK: No JVD, no lymphadenopathy, no thyromegaly. HEART: Normal rate. Regular rhythm. Good S1, S2. No murmurs. LUNGS: Clear breath sounds bilaterally. No rales or wheezes. ABDOMEN: Nondistended, normal bowel sounds, soft, nontender. EXTREMITIES: On the left foot showing a surgical incision site on the medial dorsal aspect with some opening and seepage of scant, yellow drainage. There is surrounding erythema, moderate swelling and no tenderness up to the ankle borders . There is no calf swelling, pain, warmth or tenderness as well as to the thigh and the knee. The right lower leg is essentially normal. NEUROLOGIC: Essentially normal except for decreased sensation in the bilateral feet. Hospital Course Patient is a 77 yr female with PMH of Diabetes, hypertension, dyslipidemia, deep venous thrombosis, foot surgery on the left, presenting with increased left swelling and drainage from the wound site. Left foot Cellulitis S/P I&D wound dehiscence with retained HW Blood culture: No growth Wound Culture: Staph aureus, E.coli Appreciate ID, Orthopedics and Wound Care help Continue IV antibiotics per ID PICC line was placed Needs prolonged IV antibiotics: Ceftriaxone 2gm daily for 6 weeks. Discussed with Needs follow up with and Reji Bilateral shoulder pain: resolved X ray: Degenerative changes of the acromioclavicular joint and evidence of chronic impingement of the rotator cuff. No acute osseous injury of the left shoulder DM II: hold metformin continue sliding scale insulin, fingerstick glucose Hypertension Continue losartan/hydrochlorothiazide Dyslipidemia on fish oil. Deep venous thrombosis history 20 years ago. heparin SQ for DVT Px Code Status: Full Code Disposition: Plan to discharge home today Follow up with your Primary care in 1 week Follow up with Wound Care clinic in 1 week Follow up with Infectious disease in 2 weeks Complete the antibiotic course as prescribed Seek immediate medical attention if your symptoms reoccur or worsen Total time spent on discharge = 32 minutes This includes examination of the patient, discharge planning, medication reconciliation, and communication with other providers. Discharge Instructions Discharge Instructions Date of Service Nov 18, 2017. Admission Reason for Admission: Foot Infection Discharge Discharge Diagnosis / Problem: Left Foot Cellulitis Discharge Goals Goal(s): Decrease discomfort, Improve function Activity Recommendations Activity Limitations: resume your previous activity Exercise/Sports Limitations: as tolerated . Instructions / Follow-Up Instructions / Follow-Up Follow up with your Primary care in 1 week Follow up with Wound Care clinic in 1 week Follow up with Infectious disease in 2 weeks Complete the antibiotic course as prescribed Seek immediate medical attention if your symptoms reoccur or worsen Current Hospital Diet Patient's current hospital diet: Diabetes Type 2 Diet Discharge Diet Recommended Diet: Diabetes Type 2 Diet Procedures Procedures Performed: Irrigation and debridement Left Foot skin, subcutaneous fat and fascia Pending Studies Studies pending at discharge: no Medical Emergencies . Who to Call and When: Medical Emergencies: If at any time you feel your situation is an emergency, please call 911 immediately. . Non-Emergent Contact Non-Emergency issues call your: Primary Care Provider, Specialist (Infectious disease, Wound Care) Call Non-Emergent contact if: you have a fever, your pain is not controlled, your pain is worsening, your pain is unusual for you, your pain is concerning you, wound has increased drainage, wound has increased redness, wound has increased pain, you have any medication questions Seek immediate medical attention if your symptoms reoccur or worsen . . "Provider Documentation" section prepared by Joby Olson. . VTE Core Measure Inpt VTE Proph given/why not?: Unfractionated heparin SQ <Electronically signed by Joby Olson MD> Signed: 11/18/17 9151 Signed: The status of this report is Signed * If report status is Draft, the document has not been finalized by the responsible provider.
[2017-11-18 14:44] VITALS: BP 122/74; PULSE 74; TEMP 36.9; O2SAT 96
[2017-11-18 15:08] VITALS: BP 127/67; PULSE 91; TEMP 37.3; O2SAT 93
--- NOTE | 2017-11-19 12:01 | EDITING REQUIRED CODING QUERY ---
SEPSIS To promote full compliance with coding requirements relating to patient care, physician participation is requested in all cases of charging operator uncertainty. Please assist us with the question(s) below: In responding to this query, please exercise your independent professional judgement. The fact that a question is asked does not imply that any particular answer is desired or expected. We appreciate your clarification on this issue. Throughout the medical record, you have clearly documented a localized infection and your patient has clinical evidence of a generalized sepsis or severe sepsis. The term urosepsis is a nonspecific entity and is coded as an UTI. If the patient has sepsis, severe sepsis, from an urinary source or some other source, please clarify in your response below. The medical record reflects the following clinical findings: (With dates as appropriate) (Body temperature of >38.3 C(101 F) or <36 C(96.8F), pulse >90/minute, respirations >20/minute, WBC count >12,000 or <4,000, altered mental status, significant edema or positive fluid balance, hyperglycemia without diabetes, hypotension, metabolic acidosis (elev. lactate level, anion gap or reduced blood pH), shock, positive blood culture (enter organism) ()Bacteremia (Nonspecific laboratory finding of bacteria in the blood) Specify Organism () Present on Admission () Not present on admission () Unable to clinically determine () Septicemia (Systemic disease associated with the presence of pathogenic microorganisms in the blood): Specify Organism () Present on Admission () Not present on admission () Unable to clinically determine (X) Sepsis Specify Organism: Staph.aureus, E.coli Specify Associated Condition/Diagnosis : Left foot Cellulitis (X) Present on Admission () Not present on admission () Unable to clinically determine () Severe Sepsis (Sepsis associated with acute organ dysfunction) Specify Organism Specify Associated Condition/Diagnosis () Present on Admission () Not present on admission () Unable to clinically determine () Septic Shock (Severe sepsis with acute circulatory failure, unexplained by other causes) () Present on Admission () Not present on admission () Unable to clinically determine () Other, patient has:
--- NOTE | 2017-11-19 12:04 | EDITING REQUIRED CODING QUERY ---
DEBRIDEMENT DOCUMENTATION To promote full compliance with coding requirements relating to patient care, physician participation is requested in all cases of rac specialist uncertainty. Please assist us with the question(s) below: Please place an X in the parenthesis (x). If other, please document the finding: Type of Debridement: (X) Excisional Debridement- Cutting away necrotic, devitalized tissue or slough to the level of viable tissue using a sharp instrument (i.e. scalpel, scissors, etc.) ( ) Non Excisional Debridement- The removal of necrotic, devitalized tissue or slough by means of scraping, mechanical brushing, flushing, or washing (i.e. irrigation,whirlpool);minor removal of loose fragments. ( ) Other (please specify): Instrument Used: ( ) Scissors (X) Scalpel (X) Curette ( ) Other (please specify): Depth of Debridement: ( ) Skin (X) Skin and Subcutaneous Tissue ( ) Skin, Subcutaneous Tissue and Muscle ( ) Skin, Subcutaneous Tissue, Muscle and Bone ( ) Other (please specify): Please Specify the Size of Debridement in cm2: 6cm2 Thank you Franci Martinez
--- NOTE | 2017-11-19 12:07 | EDITING REQUIRED CODING QUERY ---
CODING QUERY To promote full compliance with coding requirements relating to patient care, provider participation is requested in all cases of medical device engineer uncertainty. Please assist us with the question(s) below: Coding Question(s): Please clarify below, in your clinical opinion, regarding the Left Medial Foot Deep Infection and Wound Dehiscence. ( ) These were postoperative complications ( X) These were not postoperative complications *Occurred over 7 weeks post op. Physician's Response(s): Thank you Franci Martinez Principal Diagnosis: "_that condition established after study, to be chiefly responsible for occasioning the admission of the patient to the hospital for care." Co-Existing Principal Diagnosis: "_when two or more diagnoses equally meet the criteria for principal diagnosis as determined by the circumstances of admission, diagnostic work up, and/or therapy provided, and the Alphabetic Index, Tabular List, or another coding guideline does not provide sequencing direction, any one of the diagnoses may be sequenced first." "When the physician has documented what appears to be a current diagnosis in the body of the record, but has not included the diagnosis in the final diagnostic statement, the physician should be asked whether the diagnosis should be added." ([facility] 2 QTR90. p3-4)
[2017-11-25] MEDS ORDERED: CEFT1INJ57 IV (13:41)
--- NOTE | 2017-11-25 14:22 | Wound Consultation: Inpatient ---
Wound Consultation Date of Consultation: Nov 17, 2017. Attending Physician: Joby Olson MD Reason for Consultation: Postoperative wound left foot History of Present Illness Patient underwent incision and drainage of a postoperative abscess to the left foot [address] Lucas. Patient currently denies any significant pain swelling or redness in the foot region. Patient denies any fever chills or night sweats. Patient denies any chest pain shortness of breath abdominal discomfort nausea or vomiting. Patient originally had a surgical repair of this foot back in September 04 of this year. Patient developed a swelling and redness on November 12. Patient also had associated fever with this. Social History Smoking Status: Never Smoker Marital Status: Housing Status: lives with family Occupation Status: retired Allergies Coded Allergies: No Known Allergies (Unverified , 09/04/17) Home Medications Scheduled Aspirin (Aspirin Chewable), 81 MG PO QPM Calcium/Vitamin D ([place] 500 Plus D), 1 TAB PO QAM Ceftriaxone Sod (Rocephin), 2 GM IV Q24H Cholecalciferol (D3), 1 CAP PO QAM Cyanocobalamin (B-12), 1 DOSE SL QAM Duloxetine HCl (Cymbalta), 1 CAP PO QAM Fish Oil ([place]-3), 1 CAP PO QAM Gabapentin (Neurontin), 2 TAB PO BID Garlic (Garlic), 1 CAP PO QAM Irbesartan-Hydrochlorothiazide (Avalide), 0.5 TAB PO QAM Levothyroxine Sodium (Levothyroxine Sodium), 1 TAB PO QAM Metformin Hcl (Glucophage), 500 MG PO BID Multivitamin (Multivitamin), 1 TAB PO QAM Omeprazole (Prilosec), 20 MG PO QAM Potassium Gluconate (Potassium Gluconate), 1 TAB PO QAM Scheduled PRN Polyethylene (Miralax), 17 GM PO DAILY PRN for Constipation Promethazine Hcl (Phenergan), 25 MG PO Q6H PRN for Nausea Physical Exam Vital signs were reviewed and found to be unremarkable patient is afebrile General: The patient is sitting in a hospital bed in no distress. Alert, cooperative and appropriate to all questions. HEENT: Pupils equal and reactive to light. Sclera clear, EOM intact. Neck: Supple, No JVD noted Chest: CTA in all phillips. No deformity Heart: RRR without murmurs, S3, S4, thrills, rubs or heaves Abdomen: Soft, No masses, Bowel Sound present Extremities: Postoperative wound site is noted to the lateral aspect of the left foot measuring 8.3 x 1.5 x 0.3 cm. There is currently no active drainage or odor at this site. Sutures are present. No periwound erythema or fluctuance or edema noted. Distal neurovascular bundles intact. Neurological: Alert and oriented x3. No focal deficits. Assessment & Plan Assessment: Postoperative wound left foot Plan: At this time time no debridement is indicated. Wound VAC therapy will be held today due to the presence of a reasonable closure with no significant gapping or depth. This I'll be dressed with Aquacel Ag and gauze changed on a daily basis patient will be monitored during her hospital course and seen in the outpatient clinic upon discharge.
[2017-12-17] MEDS ORDERED: CEFT1INJ57 IV (13:50)
[2018-01-07] MEDS ORDERED: CEPH500C PO (13:58)
== END 2017-11-18 16:24 | disposition home health service (06) | DRG 856 ==
LOC: C.EDB 20:46 → UNDOADMIN 22:50 → C.MSN 22:50 → ENRESERV 23:02
PROVIDERS: ADMIT Internal Medicine; ATTEND Internal Medicine
PROC: 0JBR0ZZ Excision of Left Foot Subcutaneous Tissue and Fascia, Open Approach (ICD-10-PCS; principal; 2017-11-15 07:30)
PROC: 02HV33Z Insertion of Infusion Device into Superior Vena Cava, Percutaneous Approach (ICD-10-PCS; 2017-11-17)
DX: T81.4XXA Infection following a procedure, initial encounter (principal); A41.9 Sepsis, unspecified organism; L03.116 Cellulitis of left lower limb; T81.30XA Disruption of wound, unspecified, initial encounter; B95.61 Methicillin susceptible Staphylococcus aureus infection as the cause of diseases classified elsewhere; B96.20 Unspecified Escherichia coli [E. coli] as the cause of diseases classified elsewhere; M25.512 Pain in left shoulder; M25.511 Pain in right shoulder; I10 Essential (primary) hypertension; E11.9 Type 2 diabetes mellitus without complications; E78.5 Hyperlipidemia, unspecified; E03.9 Hypothyroidism, unspecified; Z51.81 Encounter for therapeutic drug level monitoring; Z79.899 Other long term (current) drug therapy; Z79.82 Long term (current) use of aspirin; Z79.84 Long term (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 oral hypoglycemic drugs; Z98.890 Other specified postprocedural states; Z86.718 Personal history of other venous thrombosis and embolism; Z83.3 Family history of diabetes mellitus; Z82.3 Family history of stroke; Z83.49 Family history of other endocrine, nutritional and metabolic diseases; X58.XXXA Exposure to other specified factors, initial encounter

== ENCOUNTER 2017-12-01 13:55 | Emergency (ER) | payer OTHER ==
[~2017-12-01] VITALS: Ht 162.6 cm; Wt 75.0 kg
[~2017-12-01 13:55] MED LIST changes: +CEFT1INJ57 IV; +MRLP17X PO; -OXYC-57 PO
[2017-12-01 13:56] VITALS: TEMP 36.6; Ht 162.6 cm; Wt 75.0 kg
[2017-12-01 14:46] VITALS: O2SAT 98
[2017-12-01 14:56] LABS: BASO % 1.6 %; BASO ABS # 0.13 K/uL (0-0.2); EOS % 2.1 %; EOS ABS # 0.17 K/uL (0-0.5); HEMATOCRIT 39.4 % (37-47); HEMOGLOBIN 13.2 g/dL (12.0-16.0); IG# 0.02 K/uL (0.00-0.02); LYMPH % 32.5 %; LYMPH ABS # 2.61 K/uL (1.2-3.4); MEAN CELL VOLUME 87.2 fL (80-100); MEAN CORPUSCULAR HEMOGLOBIN 29.2 pg (25-34); MEAN CORPUSCULAR HGB CONC 33.5 g/dl (32-36); MEAN PLATELET VOLUME 9.7 fL (7.4-10.4); MONO ABS # 0.56 K/uL (0.11-0.59); NEUT % 56.6 %; NEUT ABS # 4.55 K/uL (1.4-6.5); PLATELET COUNT 337 K/uL (130-400); RED CELL DISTRIBUTION WIDTH CV 13.9 % (11.5-14.5); RED CELL DISTRIBUTION WIDTH SD 43.9 fL (36.4-46.3); WHITE BLOOD COUNT 8.04 K/uL (4.8-10.8)
[2017-12-01] MEDS ORDERED: DAPTOmycin IV 450 MG in SODIUM CHLORIDE 0.9% 50ML 50 ML IV STA (15:02)
--- NOTE | 2017-12-01 15:02 | EMERGENCY ROOM VISIT NOTE ---
History First contact with patient: 14:02 Chief Complaint: OTHER COMPLAINT Stated Complaint: PIC LINE SWELLED AND RED, HOME HEALTH SENT History of Present Illness The patient is a 77 year old female who presents to the Emergency Room with complaints of pain, redness, and swelling around her PICC line site that started several days ago. The patient had a PICC line placed on 11/18 for IV antibiotics to treat a postop foot infection, she states that she needs this for daily IV antibiotics for the next month. Patient states that she first noticed the symptoms this past Thursday, she saw her doctor who did blood work and an ultrasound and did not show anything. Today when her home nurse came to give her her antibiotics, she was unable to flush the line or drawing back on it and was concerned about how the line appeared, so she encouraged patient to come to the emergency department for evaluation. She denies any fevers or chills, dizziness, syncope, chest pain, shortness of breath, back pain, abdominal pain, nausea or vomiting, diarrhea, urinary symptoms, or rash. Review of Systems A complete 10 point review of systems was reviewed with the patient with pertinent positives and negatives as per history of present illness. All else were negative. Past Medical/Surgical History Medical Problems: (1) Diabetes (2) Foot infection (3) Osteoarthritis of left foot (4) Pes planus (5) Vertigo Surgical Problems: (1) Postoperative state Social History Smoking Status: Never Smoker Drug Use: none Marital Status: Housing Status: lives with family Occupation Status: retired Current/Historical Medications Scheduled Aspirin (Aspirin Chewable), 81 MG PO QPM Cholecalciferol (D3), 1,000 UNITS PO QAM Cyanocobalamin (Vitamin B-12), 500 MCG PO DAILY Duloxetine HCl (Cymbalta), 30 MG PO QAM Fish Oil ([place]-3), 1 CAP PO QAM Gabapentin (Neurontin), 600 MG PO BID Garlic (Garlic), 1,000 MG PO QAM Irbesartan-Hydrochlorothiazide (Avalide), 0.5 TAB PO QAM Levothyroxine Sodium (Levothyroxine Sodium), 50 MCG PO QAM Metformin Hcl (Glucophage), 500 MG PO BID Multiple Vitamins W/ Minerals (Multivitamin Adults 50+), 1 TAB PO DAILY Omeprazole (Prilosec), 20 MG PO QAM Potassium Gluconate (Potassium Gluconate), 550 MG PO QAM Allergies No known allergies Physical Exam Vital Signs Date Time Temp Pulse Resp B/P (MAP) Pulse Ox O2 Delivery O2 Flow Rate FiO2 12/01/17 19:44 92 16 143/86 94 12/01/17 19:13 92 12/01/17 19:09 91 16 143/86 94 Room Air 12/01/17 16:21 148/81 12/01/17 16:00 90 19 92 12/01/17 15:30 87 17 95 12/01/17 15:13 91 12/01/17 14:46 98 Room Air 12/01/17 13:56 36.6 101 17 122/67 96 Room Air Physical Exam CONSTITUTIONAL: Pleasant and cooperative. No acute distress. Well appearing and well nourished. HEENT: Normocephalic, atraumatic. Pupils equal, round and reactive to light, EOMI. TMs normal. Pharynx normal. [] NECK: Supple, full active range of motion without discomfort. RESPIRATORY: Clear to auscultation bilaterally with no wheezing, crackles, rhonchi or stridor. Equal expansion bilaterally. CARDIOVASCULAR: Regular rate and rhythm with no murmurs, rubs or gallops. Normal peripheral perfusion. No edema. GASTROINTESTINAL: Soft, nontender, nondistended. No palpable masses or HSM. Bowel sounds present in all quadrants. MUSCULOSKELETAL: There is redness, swelling, or warmth of the PICC line insertion site of the left upper arm. There is no drainage noted. Dressing is intact. Full range of motion of all joints without discomfort. INTEGUMENTARY: No rash or other significant dermatologic conditions noted. NEUROLOGIC: Alert and oriented X 4 with normal affect. No focal neurologic deficits noted. Normal strength and sensation of all 4 extremities. Normal speech. Normal gait observed. Medical Decision & Procedures ER Provider Diagnostic Interpretation: CHEST ONE VIEW PORTABLE CLINICAL HISTORY: Chest x-ray for PICC catheter placement COMPARISON STUDY: 08/10/2017 FINDINGS: The cardiac and mediastinal contours are normal. There is no evidence of focal pulmonary consolidation. There is no evidence of failure. No pleural effusions are visualized.[ There has been interval placement of a left-sided PICC catheter. The tip projects over the left innominate vein near the expected confluence with the right innominate vein. IMPRESSION: Interval placement of a left-sided PICC catheter. The tip projects just proximal to the suspected innominate vein confluence. ----- L VENOUS DOPPLER UPR EXT UNIL HISTORY: Pain. Edema. left arm red, warm, pain, PICC Line, eval DVT COMPARISON STUDY: None. FINDINGS: The internal jugular vein is patent. There is normal flow within the subclavian vein. There is normal flow and compressibility within the left axillary, basilic, brachial, radial, ulnar, and visualized cephalic veins. IMPRESSION: No DVT within the upper extremity. ----- CHEST ONE VIEW PORTABLE CLINICAL HISTORY: PICC placement tube position COMPARISON STUDY: 12/01/2017 FINDINGS: PICC catheter positioned from a right-sided approach with the tip in the superior vena cava. The left PICC catheter is unchanged in position. No evidence pneumothorax. IMPRESSION: Right-sided PICC catheter place in the superior vena cava. No evidence of pneumothorax. Laboratory Results 12/01/17 14:35 Red Blood Count 4.52, Mean Corpuscular Volume 87.2, Mean Corpuscular Hemoglobin 29.2, Mean Corpuscular Hemoglobin Concent 33.5, Mean Platelet Volume 9.7, Neutrophils (%) (Auto) 56.6, Lymphocytes (%) (Auto) 32.5, Monocytes (%) (Auto) 7.0, Eosinophils (%) (Auto) 2.1, Basophils (%) (Auto) 1.6, Neutrophils # (Auto) 4.55, Lymphocytes # (Auto) 2.61, Monocytes # (Auto) 0.56, Eosinophils # (Auto) 0.17, Basophils # (Auto) 0.13 12/01/17 14:35 Test 12/01/17 14:35 12/01/17 15:46 White Blood Count 8.04 K/uL (4.8-10.8) Red Blood Count 4.52 M/uL (4.2-5.4) Hemoglobin 13.2 g/dL (12.0-16.0) Hematocrit 39.4 % (37-47) Mean Corpuscular Volume 87.2 fL (80-100) Mean Corpuscular Hemoglobin 29.2 pg (25-34) Mean Corpuscular Hemoglobin Concent 33.5 g/dl (32-36) Platelet Count 337 K/uL (130-400) Mean Platelet Volume 9.7 fL (7.4-10.4) Neutrophils (%) (Auto) 56.6 % Lymphocytes (%) (Auto) 32.5 % Monocytes (%) (Auto) 7.0 % Eosinophils (%) (Auto) 2.1 % Basophils (%) (Auto) 1.6 % Neutrophils # (Auto) 4.55 K/uL (1.4-6.5) Lymphocytes # (Auto) 2.61 K/uL (1.2-3.4) Monocytes # (Auto) 0.56 K/uL (0.11-0.59) Eosinophils # (Auto) 0.17 K/uL (0-0.5) Basophils # (Auto) 0.13 K/uL (0-0.2) RDW Standard Deviation 43.9 fL (36.4-46.3) RDW Coefficient of Variation 13.9 % (11.5-14.5) Immature Granulocyte % (Auto) 0.2 % Immature Granulocyte # (Auto) 0.02 K/uL (0.00-0.02) Anion Gap 5.0 mmol/L (3-11) Est Creatinine Clear Calc Drug Dose 37.7 ml/min Estimated GFR () 47.9 Estimated GFR (Non- 41.4 BUN/Creatinine Ratio 17.8 (10-20) Calcium Level 9.5 mg/dl (8.5-10.1) Total Bilirubin 0.3 mg/dl (0.2-1) Direct Bilirubin < 0.1 mg/dl (0-0.2) Aspartate Amino Transf (AST/SGOT) 25 U/L (15-37) Alanine Aminotransferase (ALT/SGPT) 28 U/L (12-78) Alkaline Phosphatase 157 U/L (45-117) Total Protein 7.7 gm/dl (6.4-8.2) Albumin 3.4 gm/dl (3.4-5.0) Prothrombin Time 10.3 SECONDS (9.0-12.0) Prothromb Time International Ratio 1.0 (0.9-1.1) Activated Partial Thromboplast Time 32.2 SECONDS (21.0-31.0) Partial Thromboplastin Ratio 1.2 Medications Administered Medications (Trade) Dose Ordered Sig/Shannon Route Start Time Stop Time Status Last Admin Dose Admin Daptomycin 450 mg/ Sodium Chloride 59 ml @ 100 mls/hr NOW STAT IV 12/01/17 15:02 12/01/17 15:37 DC 12/01/17 19:09 100 MLS/HR Ceftriaxone Sodium 2000 mg/ Dextrose 70 ml @ 100 mls/hr ONE STAT IV 12/01/17 15:21 12/01/17 16:02 DC 12/01/17 16:13 100 MLS/HR Medical Decision CC: Patient presenting with complaint of PICC line problem Interpretation of Labs: No leukocytosis, no anemia, no significant electrolyte abnormalities, renal function at baseline, normal liver enzymes. Coagulation factors within normal limits. Differential Diagnosis: Includes, but not limited to PICC line infection, clotted line, DVT, cellulitis, abscess, bacteremia, among others. Medication Reconciliation: I attest that I have personally reviewed the patient' s current medication list. Initial vital signs review: I reviewed the patient's vital signs and interpret them as follows: T: Afebrile; BP: Normotensive; HR: Mildly tachycardic; RR: Within normal limits; Pulse Ox: Within normal limits on room air. Blood pressure screening: The patient was found to have normal blood pressure on screening and does not require follow-up for repeat blood pressure check. Summary: Patient was evaluated at bedside, history and physical exam performed. Patient alert and oriented, no acute distress, resting calmly in stretcher. There is erythema, mild swelling, and tenderness to palpation of the insertion site of the PICC line of the left upper arm. Warm to touch. Findings concerning for central line infection. IV team called to evaluate the patient, they agree with concern for infection. Orders were placed at bedside for labs, blood cultures 2, chest x-ray, venous duplex of the left upper extremity to evaluate for DVT. Patient discussed with Dr. Bennett, who agrees with my assessment and plan. Labs reviewed as above, no significant abnormalities. Blood cultures were sent , one from the PICC line, one from a peripheral stick. Chest x-ray is unremarkable, shows good positioning of the left PICC line. I did speak on the phone with Dr. Garcia, infectious disease, regarding the patient and her PICC line. He did agree that her existing PICC line should come out, and he requested that a new PICC line be placed today for continued IV antibiotics at home. He also requested that the patient be given a dose of daptomycin 6 mg/kg today while in the ED. I spoke with the PICC line team, a new PICC was placed in the right arm, confirmed placement with chest x-ray. The left PICC line was removed by the PICC line team, catheter tip was sent for culture. Patient was given a dose of daptomycin after previous PICC line was removed. Patient reassessed multiple times throughout ED stay, she remains well appearing , with no complaints. She tolerated the PICC line procedure well. Patient and her daughter were updated on all results and plan for discharge home , and encouraged to keep all follow-up appointments. Patient was also given strict return precautions should worsen in any way. Patient was discharged home in stable condition and ambulatory. Medication Reconcilliation Current Medication List: was personally reviewed by me Blood Pressure Screening Patient's blood pressure: Elevated blood pressure Blood pressure disposition: Elevated BP felt to be situational, Referred to PCP Impression Primary Impression: PICC line infection Departure Information Dispostion Home / Self-Care Condition GOOD Referrals BRUNO MERRITT M.D. (PCP) Patient Instructions ED PICC Line Care, [facility] Additional Instructions Continue your IV antibiotics as prescribed. Keep all follow up appointments as scheduled. Please return to the emergency room for any worsening symptoms, including worsening arm pain, swelling, redness, pus drainage, fevers or chills, chest pain, shortness of breath, dizziness or passing out, or any other concerns. Problem Qualifiers Primary Impression: PICC line infection Encounter type: initial encounter Qualified Codes: T80.219A - Unspecified infection due to central venous catheter, initial encounter
[2017-12-01 15:17] LABS: ALBUMIN 3.4 gm/dl (3.4-5.0); ALT/SGPT 28 U/L (12-78); AST/SGOT 25 U/L (15-37); BLOOD UREA NITROGEN 22 mg/dl (7-18); CALCIUM 9.5 mg/dl (8.5-10.1); CARBON DIOXIDE 30 mmol/L (21-32); CREATININE 1.26 mg/dl (0.60-1.20); GLUCOSE 123 mg/dl (70-99); POTASSIUM 4.4 mmol/L (3.5-5.1); SODIUM 136 mmol/L (136-145)
[2017-12-01 15:19] LABS: ALKALINE PHOSPHATASE 157 U/L (45-117); TOTAL PROTEIN 7.7 gm/dl (6.4-8.2)
[2017-12-01] MEDS ORDERED: CEFTRIAXONE SOD INJ 2,000 MG in DEXTROSE 5% 50ML 50 ML IV STA (15:21)
--- NOTE | 2017-12-01 15:41 | DIAGNOSTIC IMAGING REPORT ---
CHEST ONE VIEW PORTABLE CLINICAL HISTORY: Chest x-ray for PICC catheter placement COMPARISON STUDY: 08/10/2017 FINDINGS: The cardiac and mediastinal contours are normal. There is no evidence of focal pulmonary consolidation. There is no evidence of failure. No pleural effusions are visualized.[ There has been interval placement of a left-sided PICC catheter. The tip projects over the left innominate vein near the expected confluence with the right innominate vein. IMPRESSION: Interval placement of a left-sided PICC catheter. The tip projects just proximal to the suspected innominate vein confluence. Electronically signed by: Jose Guerra M.D. 12/01/2017 3:39 PM Dictated Date/Time: 12/01/2017 3:38 PM
[2017-12-01] MEDS ORDERED: CYAN500T PO (15:45)
[2017-12-01] MEDS ORDERED: MULT-916 PO (15:45)
[2017-12-01 16:14] LABS: PTT PATIENT 32.2 SECONDS (21.0-31.0)
--- NOTE | 2017-12-01 17:13 | DIAGNOSTIC IMAGING REPORT ---
L VENOUS DOPPLER UPR EXT UNIL HISTORY: Pain. Edema. left arm red, warm, pain, PICC Line, eval DVT COMPARISON STUDY: None. FINDINGS: The internal jugular vein is patent. There is normal flow within the subclavian vein. There is normal flow and compressibility within the left axillary, basilic, brachial, radial, ulnar, and visualized cephalic veins. IMPRESSION: No DVT within the upper extremity. The above report was generated using voice recognition software. It may contain grammatical, syntax or spelling errors. Electronically signed by: Hayder Miller M.D. 12/01/2017 5:12 PM Dictated Date/Time: 12/01/2017 5:10 PM
--- NOTE | 2017-12-01 18:42 | DIAGNOSTIC IMAGING REPORT ---
CHEST ONE VIEW PORTABLE CLINICAL HISTORY: PICC placement tube position COMPARISON STUDY: 12/01/2017 FINDINGS: PICC catheter positioned from a right-sided approach with the tip in the superior vena cava. The left PICC catheter is unchanged in position. No evidence pneumothorax. IMPRESSION: Right-sided PICC catheter place in the superior vena cava. No evidence of pneumothorax. The above report was generated using voice recognition software. It may contain grammatical, syntax or spelling errors. Electronically signed by: Hayder Miller M.D. 12/01/2017 6:40 PM Dictated Date/Time: 12/01/2017 6:39 PM
[2017-12-01 19:44] VITALS: BP 143/86; PULSE 92; O2SAT 94
== END 2017-12-01 19:45 | disposition home or self-care (01) ==
LOC: C.EDB 13:57 → C.EDC 19:45
DX: T82.7XXA Infection and inflammatory reaction due to other cardiac and vascular devices, implants and grafts, initial encounter (principal); X58.XXXA Exposure to other specified factors, initial encounter; E11.9 Type 2 diabetes mellitus without complications; M19.072 Primary osteoarthritis, left ankle and foot; Z86.19 Personal history of other infectious and parasitic diseases; Z98.890 Other specified postprocedural states; Z79.82 Long term (current) use of aspirin; Z79.84 Long term (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 oral hypoglycemic drugs; Z79.899 Other long term (current) drug therapy

== ENCOUNTER 2018-03-28 16:13 | Inpatient (IN) | payer OTHER ==
[~2018-03-28] VITALS: Ht 162.6 cm; Wt 77.4 kg
[2018-03-28] MEDS: MAGNESIUM OXIDE 400 MG TAB PO SCH (00:55)
[~2018-03-28 16:13] MED LIST changes: -CALC500C70 PO; -CEFT1INJ57 IV; -CYAN30SU SL; +CYAN500T PO; -MRLP17X PO; -MULT-506 PO; +MULT-916 PO; +NF1420 PO; -PROM25TA9 PO
[2018-03-28] MEDS ORDERED: FENTANYL CITRATE INJ 50 MCG/1 ML 2 ML VIAL IV STA (16:31)
[2018-03-28] MEDS ORDERED: SODIUM CHLORIDE 0.9% 500ML 500 ML IV STA (16:31)
--- NOTE | 2018-03-28 16:44 | EMERGENCY ROOM VISIT NOTE ---
History Report prepared by Selina: Martell Elias Under the Supervision of: Dr. Inocencio Dunbar M.D. First contact with patient: 16:16 Chief Complaint: WEAKNESS Stated Complaint: WEAKNESS,PAIN IN LEGS,CHILLS,BACK PAIN History of Present Illness The patient is a 78 year old female who presents to the Emergency Room with complaints of worsening right-sided lower back pain that began last night. Patient states that the pain radiates down through both of her legs. She describes the pain in her legs as an "achiness". Patient states that she has weakness, chills, fevers, "cold sweats", and nausea. Patient states that she does not have a thermometer at home to check her temperature. Patient took 4 ibuprofen 4 hours ago to try and relieve the symptoms. Patient is present with family. Family states that the patient had similar symptoms, other than the back pain, last week. They state that the patient saw her PCP and was then admitted to [facility] 6 days ago. Family adds that the patient had a temperature of 103.5 during her visit. She adds that the doctors believed her symptoms were due to an infection. Family states that the patient was given amiodarone for AFib. Patient was also given cefadroxil for her infections. She denies taking any blood thinners. Patient states that she has a history of staph infections. They add that the patient had a stress test done 2 days ago that was "normal". Patient states that she was discharged from [facility] 2 days ago and "felt fine". She adds that she has a history of back surgeries and left foot surgery. Patient denies a history of kidney problems. Patient denies allergies to IV dye. Patient denies urinary symptoms, SOB, abdominal pain, chest pain, and diarrhea. Source of History: patient Onset: Last night Position: back (Right-sided lower), leg (bilateral) Quality: ache Timing: worsening Modifying Factors (Relieving): other (None) Associated Symptoms: + fevers, + chills, + nausea, + weakness, No chest pain , No SOB, No abdominal pain, No diarrhea, No urinary symptoms Review of Systems See HPI for pertinent positives & negatives. A total of 10 systems reviewed and were otherwise negative. Past Medical & Surgical Medical Problems: (1) Chills with fever (2) Diabetes (3) Foot infection (4) Osteoarthritis of left foot (5) Pes planus (6) Vertigo Surgical Problems: (1) Postoperative state Family History Diabetes mellitus FHx: cancer Social History Smoking Status: Never Smoker Drug Use: none Marital Status: Housing Status: lives with family Occupation Status: retired Current/Historical Medications Scheduled Amiodarone Hcl (Cordarone), 200 MG PO BID Aspirin (Aspirin Chewable), 81 MG PO QPM Cefadroxil (Duricef), 500 MG PO DAILY Duloxetine Hcl (Cymbalta), 60 MG PO DAILY Fish Oil-Cholecalciferol (Fish Oil + D3), 1 CAP PO DAILY Gabapentin (Gabapentin), 200 MG PO BID Garlic (Garlic), 1 TAB PO DAILY Irbesartan-Hydrochlorothiazide (Avalide), 0.5 TAB PO QAM Levothyroxine Sodium (Levothyroxine Sodium), 50 MCG PO QAM Magnesium Oxide (Mag-Ox), 400 MG PO BID Meclizine Hcl (Meclizine Hcl), 2 TAB PO DAILY Metformin Hcl (Glucophage), 500 MG PO BID Omeprazole Magnesium (Cvs Omeprazole Magnesium), 20.6 MG PO DAILY Potassium Gluconate (Potassium Gluconate), 550 MG PO QAM Allergies Coded Allergies: No Known Allergies (Unverified , 03/28/18) Physical Exam Vital Signs Date Time Temp Pulse Resp B/P (MAP) Pulse Ox O2 Delivery O2 Flow Rate FiO2 03/28/18 18:30 104 16 114/70 95 Room Air 03/28/18 17:06 89 03/28/18 16:14 36.5 100 20 132/62 100 Room Air Physical Exam GENERAL: Patient is tired, dehydrated appearing and in moderate distress. EYES: No scleral icterus, unremarkable pupils. ENT: Mucous membranes moist, no nasal congestion. NECK: No masses appreciated, no meningismus, trachea is midline. RESPIRATORY: No dyspnea. Clear to auscultation and equal bilaterally. No wheeze , no rhonchi. CARDIOVASCULAR: Regular rate and rhythm. No murmurs, rubs, gallops appreciated. GASTROINTESTINAL: Abdomen soft, nontender, no peritonitis. Bowel sounds positive. No masses appreciated. BACK: No midline tenderness, right CVA tenderness to palpitation EXTREMITIES: Normal motion all extremities, no cyanosis, no edema. NEUROLOGIC: Alert and oriented, no acute motor or sensory deficits, no focal weakness, cranial nerves grossly intact. SKIN: 1cm skin tear over ball of left foot, swelling/phlebitis over the AC of the right elbow, no rash, no jaundice. Medical Decision & Procedures ER Provider Diagnostic Interpretation: Radiology results and stated below per my review and radiologist interpretation: ABDOMEN AND PELVIS CT WITH IV CONTRAST CT DOSE: 910.58 mGy.cm HISTORY: right flank pain TECHNIQUE: Multiaxial CT images of the abdomen and pelvis were performed following the use of intravenous contrast. A dose lowering technique was utilized adhering to the principles of ALARA. COMPARISON STUDY: None. FINDINGS: Small right and trace left pleural effusions. Interlobular septal thickening at the lung bases consistent with pulmonary edema. Bibasilar densities favor atelectasis. No pneumoperitoneum. No pneumatosis. 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 Posterior fusion within the lower lumbar spine. The bladder is mildly distended. Hysterectomy. Colonic diverticulosis. Mild pelvic floor collapse. No bowel wall thickening or obstruction. Normal appendix. Mild soft tissue thickening at the fundus of the gallbladder suggestive of adenomyomatosis. The liver, pancreas, adrenal glands are unremarkable. No hydronephrosis. Slightly heterogeneous appearance to the upper poles of the kidneys which may represent mild scarring. There is an exophytic 5.6 cm hypodense lesion within the lower pole the right kidney. This likely represents a cyst. This contains a punctate peripheral calcification. No retroperitoneal lymphadenopathy. The spleen. Normal in size. Mild asymmetry of the piriformis muscles which may be long-standing. IMPRESSION: 1. Small right and trace left pleural effusions with mild pulmonary edema. 2. No bowel wall thickening or obstruction. 3. Normal appendix. 4. No hydronephrosis. 5. Slightly heterogeneous appearance of the upper poles of the kidneys which favors scarring. 6. Additional findings as described above. Electronically signed by: Torsten Pierre M.D. 03/28/2018 5:44 PM CHEST ONE VIEW PORTABLE HISTORY: fevers, weakness COMPARISON: Chest 12/01/2017. FINDINGS: No pneumothorax. Small bilateral pleural effusions, cardiomegaly, and interstitial pulmonary edema. No focal lung consolidations. IMPRESSION: Mild to moderate interstitial pulmonary edema and small bilateral pleural effusions. Electronically signed by: Torsten Pierre M.D. 03/28/2018 6:13 PM Laboratory Results 03/28/18 16:42 Red Blood Count 4.42, Mean Corpuscular Volume 81.4, Mean Corpuscular Hemoglobin 28.3, Mean Corpuscular Hemoglobin Concent 34.7, Mean Platelet Volume 9.1, Neutrophils (%) (Auto) 89.6, Lymphocytes (%) (Auto) 5.7, Monocytes (%) (Auto) 2.9, Eosinophils (%) (Auto) 0.3, Basophils (%) (Auto) 0.3, Neutrophils # (Auto) 10.47, Lymphocytes # (Auto) 0.66, Monocytes # (Auto) 0.34, Eosinophils # (Auto) 0.04, Basophils # (Auto) 0.03 03/28/18 16:42 Test 03/28/18 16:42 03/28/18 16:47 03/28/18 16:51 03/28/18 18:08 White Blood Count 11.68 K/uL (4.8-10.8) Red Blood Count 4.42 M/uL (4.2-5.4) Hemoglobin 12.5 g/dL (12.0-16.0) Hematocrit 36.0 % (37-47) Mean Corpuscular Volume 81.4 fL (80-100) Mean Corpuscular Hemoglobin 28.3 pg (25-34) Mean Corpuscular Hemoglobin Concent 34.7 g/dl (32-36) Platelet Count 322 K/uL (130-400) Mean Platelet Volume 9.1 fL (7.4-10.4) Neutrophils (%) (Auto) 89.6 % Lymphocytes (%) (Auto) 5.7 % Monocytes (%) (Auto) 2.9 % Eosinophils (%) (Auto) 0.3 % Basophils (%) (Auto) 0.3 % Neutrophils # (Auto) 10.47 K/uL (1.4-6.5) Lymphocytes # (Auto) 0.66 K/uL (1.2-3.4) Monocytes # (Auto) 0.34 K/uL (0.11-0.59) Eosinophils # (Auto) 0.04 K/uL (0-0.5) Basophils # (Auto) 0.03 K/uL (0-0.2) RDW Standard Deviation 44.1 fL (36.4-46.3) RDW Coefficient of Variation 15.0 % (11.5-14.5) Immature Granulocyte % (Auto) 1.2 % Immature Granulocyte # (Auto) 0.14 K/uL (0.00-0.02) Prothrombin Time 11.5 SECONDS (9.0-12.0) Prothromb Time International Ratio 1.1 (0.9-1.1) Activated Partial Thromboplast Time 37.8 SECONDS (21.0-31.0) Partial Thromboplastin Ratio 1.5 Estimated GFR () 54.3 Estimated GFR (Non- 46.8 BUN/Creatinine Ratio 17.2 (10-20) Calcium Level 8.9 mg/dl (8.5-10.1) Phosphorus Level 2.7 mg/dl (2.5-4.9) Magnesium Level 1.3 mg/dl (1.8-2.4) Total Bilirubin 1.1 mg/dl (0.2-1) Direct Bilirubin 0.4 mg/dl (0-0.2) Aspartate Amino Transf (AST/SGOT) 69 U/L (15-37) Alanine Aminotransferase (ALT/SGPT) 60 U/L (12-78) Alkaline Phosphatase 108 U/L (45-117) Total Creatine Kinase 208 U/L (26-192) Creatine Kinase MB 4.6 ng/ml (0.5-3.6) Creatine Kinase MB Ratio 2.2 (0-3.0) Troponin I 0.035 ng/ml (0-0.045) C-Reactive Protein 15.10 mg/dl (0-0.29) Total Protein 7.1 gm/dl (6.4-8.2) Albumin 2.8 gm/dl (3.4-5.0) Lipase 3130 U/L (73-393) Procalcitonin 0.59 ng/ml (0-0.5) Bedside Hemoglobin 12.9 g/dl (12.0-16.0) Bedside Hematocrit 38 % (37-47) Bedside Sodium 135 mEq/L (135-144) Bedside Potassium 3.9 mEq/L (3.3-5.0) Bedside Chloride 97 mEq/L (101-112) Bedside Total CO2 26 mEq/l (24-31) Anion Gap 17.0 mmol/L (16-25) Bedside Blood Urea Nitrogen 21 mg/dl (7-18) Bedside Creatinine 1.2 mg/dl (0.6-1.3) Bedside Glucose (other) 104 mg/dl (70-99) Bedside Ionized Calcium (Maximino) 1.16 mmol/l (1.12-1.32) Bedside Lactic Acid Venous 1.94 mmol/L (0.90-1.70) Urine Color YELLOW Urine Appearance CLEAR (CLEAR) Urine pH 7.0 (4.5-7.5) Urine Specific [place] 1.015 (1.000-1.030) Urine Protein NEG (NEG) Urine Glucose (UA) NEG (NEG) Urine Ketones NEG (NEG) Urine Occult Blood NEG (NEG) Urine Nitrite NEG (NEG) Urine Bilirubin NEG (NEG) Urine Urobilinogen NEG (NEG) Urine Leukocyte Esterase NEG (NEG) Urine WBC (Auto) 1-5 /hpf (0-5) Urine RBC (Auto) 0-4 /hpf (0-4) Urine Hyaline Casts (Auto) 1-5 /lpf (0-5) Urine Epithelial Cells (Auto) 10-20 /lpf (0-5) Urine Bacteria (Auto) NEG (NEG) Laboratory results as reviewed by me. Medications Administered Medications (Trade) Dose Ordered Sig/Shannon Route Start Time Stop Time Status Last Admin Dose Admin Fentanyl Citrate (Fentanyl Inj) 50 mcg NOW STAT IV 03/28/18 16:31 03/28/18 16:32 DC 03/28/18 17:05 50 MCG Sodium Chloride 500 ml @ 999 mls/hr Q31M STAT IV 03/28/18 16:31 03/28/18 17:01 DC 03/28/18 17:05 999 MLS/HR Vancomycin HCl 1500 mg/Sodium Chloride 530 ml @ 200 mls/hr ONE STAT IV 03/28/18 17:52 03/28/18 20:30 DC 03/28/18 18:14 200 MLS/HR Hydromorphone HCl (Dilaudid Inj) 1 mg NOW STAT IV 03/28/18 17:57 03/28/18 17:58 DC 03/28/18 18:15 1 MG Magnesium Sulfate (Magnesium Sulfate 1gm / D5W) 2 gm NOW STAT IV 03/28/18 17:57 03/28/18 17:58 DC 5/13/18 19:12 1 GM ECG Per My Interpretation Indication: weakness Rate (beats per minute): 88 Rhythm: normal sinus Findings: no acute ischemic change, prolonged QT (QTc = 447), no ectopy ED Course 1615: The patient was evaluated in room A3. A complete history and physical exam was performed. 1708: Patient states that she is feeling alright as long as she is not moving. 1758: Upon reevaluation, the patient states that her pain is increasing. Patient is agreeable to staying in the hospital for further treatment. Discussed results and treatment plan with the patient. She verbalized understanding and agreement with the treatment plan. The patient will be evaluated for further management. Medical Decision Differential: Renal Colic, Pyelonephritis, Hydronephrosis, Appendicitis, Diverticulitis, Retroperitoneal Bleed/Infection, Aortic Pathology, MSK, Neurologic Pathology, amongst other pathologies entertained. 78 yr old female arrives for evaluation of right flank pain and bilateral leg weakness/pain. She had recently spent a week in OSH for evaluation of dehydration, fevers and elevated troponin. At that time states she was not having this flank pain. Echo, CTA Chest, CT Head and many labs done at OSH and she was started on Amio after reportedly having episode of Afib (no anticoagulation started per records). She is here now with this right flank pain, worsening weakness, loss of appetite, and bilateral leg weakness/pain. No headache, neuro deficits by exam, nor cp/sob currently. Work-up remarkable for elevated Lipase which given pain may be pancreatitis. Also has low mag consistent with poor intake recently and likely goes somewhat with weakness. She furthermore has elevated CRP which given reported fevers is quite concerning. No evidence infection left foot by exam but is on chronic cephalosporin for suppression. Also with right AC phlebitis, without clear evidence DVT but will order US to get this ruled out. She does not have loss bowel / bladder control but there is concern that there could theoretically be underlying infection of spine given persistent fevers/illness and elevated CRP which may not have classical findings given chronic abx usage. She will likely need MRI spine for further evaluation, but given the multiple medical issues going on I feel that she will benefit from coming in now and get that as inpatient. Furthermore she is clearly dehydrated by exam but with cxr findings of congestion will start with gentle hydration and close monitoring. Given Empiric Vancomycin, IV Magnesium, and pain meds while here. Hospitalist consulted and patient admitted to them. Head Trauma GCS Score: 15 Medication Reconcilliation Current Medication List: was personally reviewed by me Blood Pressure Screening Patient's blood pressure: Normal blood pressure Blood pressure disposition: Did not require urgent referral Consults Time Called: 1751 Consulting Physician: Dr. Mathieu Prado Hospitalist Returned Call: [phone] Discussed the patient's case. The patient will be evaluated for further treatment and disposition. Impression Primary Impression: Pancreatitis Additional Impressions: Inflammatory state Generalized weakness Back pain Phlebitis of right arm Hypomagnesemia Pleural effusion Scribe Attestation The scribe's documentation has been prepared under my direction and personally reviewed by me in its entirety. I confirm that the note above accurately reflects all work, treatment, procedures, and medical decision making performed by me. Departure Information Dispostion Being Evaluated By Hospitalist Referrals BRUNO MERRITT M.D. (PCP) Forms HOME CARE DOCUMENTATION FORM, IMPORTANT VISIT INFORMATION Patient Instructions My [facility] Problem Qualifiers
[2018-03-28] MEDS ORDERED: OPTIRAY 320 IV PRN (16:45)
[2018-03-28 17:09] LABS: BASO % 0.3 %; BASO ABS # 0.03 K/uL (0-0.2); EOS % 0.3 %; EOS ABS # 0.04 K/uL (0-0.5); HEMOGLOBIN 12.5 g/dL (12.0-16.0); IG# 0.14 K/uL (0.00-0.02); LYMPH % 5.7 %; LYMPH ABS # 0.66 K/uL (1.2-3.4); MEAN CELL VOLUME 81.4 fL (80-100); MEAN CORPUSCULAR HEMOGLOBIN 28.3 pg (25-34); MEAN CORPUSCULAR HGB CONC 34.7 g/dl (32-36); MEAN PLATELET VOLUME 9.1 fL (7.4-10.4); MONO % 2.9 %; MONO ABS # 0.34 K/uL (0.11-0.59); NEUT % 89.6 %; NEUT ABS # 10.47 K/uL (1.4-6.5); PLATELET COUNT 322 K/uL (130-400); RED CELL DISTRIBUTION WIDTH SD 44.1 fL (36.4-46.3); WHITE BLOOD COUNT 11.68 K/uL (4.8-10.8)
[2018-03-28 17:10] LABS: ISTAT CREATININE 1.2 mg/dl (0.6-1.3); ISTAT IONIZED CALCIUM 1.16 mmol/l (1.12-1.32); ISTAT POTASSIUM 3.9 mEq/L (3.3-5.0)
[2018-03-28 17:17] LABS: INR 1.1 (0.9-1.1); PTT PATIENT 37.8 SECONDS (21.0-31.0)
[2018-03-28] MEDS ORDERED: MECL1TAB42 PO (17:26)
[2018-03-28] MEDS ORDERED: AMIO200T4 PO (17:26)
[2018-03-28] MEDS ORDERED: DULO60CA44 PO (17:26)
[2018-03-28] MEDS ORDERED: FISH1CAP3 PO (17:26)
[2018-03-28] MEDS ORDERED: OMEP20.64 PO (17:26)
[2018-03-28] MEDS ORDERED: GARL1CAP6 PO (17:26)
[2018-03-28] MEDS ORDERED: NRN100 PO (17:26)
[2018-03-28] MEDS ORDERED: CEFA500C2 PO (17:26)
[2018-03-28] MEDS ORDERED: MAGN400T6 PO (17:26)
[2018-03-28 17:27] LABS: ALBUMIN 2.8 gm/dl (3.4-5.0); ALT/SGPT 60 U/L (12-78); AST/SGOT 69 U/L (15-37); BLOOD UREA NITROGEN 19 mg/dl (7-18); CALCIUM 8.9 mg/dl (8.5-10.1); CARBON DIOXIDE 26 mmol/L (21-32); CREATININE 1.13 mg/dl (0.60-1.20); GLUCOSE 98 mg/dl (70-99); POTASSIUM 3.8 mmol/L (3.5-5.1); SODIUM 134 mmol/L (136-145)
[2018-03-28 17:30] LABS: ALKALINE PHOSPHATASE 108 U/L (45-117); CKMB 4.6 ng/ml (0.5-3.6); LIPASE 3130 U/L (73-393); PHOSPHORUS 2.7 mg/dl (2.5-4.9); TOTAL PROTEIN 7.1 gm/dl (6.4-8.2)
--- NOTE | 2018-03-28 17:45 | DIAGNOSTIC IMAGING REPORT ---
ABDOMEN AND PELVIS CT WITH IV CONTRAST CT DOSE: 910.58 mGy.cm HISTORY: right flank pain TECHNIQUE: Multiaxial CT images of the abdomen and pelvis were performed following the use of intravenous contrast. A dose lowering technique was utilized adhering to the principles of ALARA. COMPARISON STUDY: None. FINDINGS: Small right and trace left pleural effusions. Interlobular septal thickening at the lung bases consistent with pulmonary edema. Bibasilar densities favor atelectasis. No pneumoperitoneum. No pneumatosis. 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 Posterior fusion within the lower lumbar spine. The bladder is mildly distended. Hysterectomy. Colonic diverticulosis. Mild pelvic floor collapse. No bowel wall thickening or obstruction. Normal appendix. Mild soft tissue thickening at the fundus of the gallbladder suggestive of adenomyomatosis. The liver, pancreas, adrenal glands are unremarkable. No hydronephrosis. Slightly heterogeneous appearance to the upper poles of the kidneys which may represent mild scarring. There is an exophytic 5.6 cm hypodense lesion within the lower pole the right kidney. This likely represents a cyst. This contains a punctate peripheral calcification. No retroperitoneal lymphadenopathy. The spleen. Normal in size. Mild asymmetry of the piriformis muscles which may be long-standing. IMPRESSION: 1. Small right and trace left pleural effusions with mild pulmonary edema. 2. No bowel wall thickening or obstruction. 3. Normal appendix. 4. No hydronephrosis. 5. Slightly heterogeneous appearance of the upper poles of the kidneys which favors scarring. 6. Additional findings as described above. Electronically signed by: Torsten Pierre M.D. 03/28/2018 5:44 PM Dictated Date/Time: 03/28/2018 5:33 PM
[2018-03-28] MEDS ORDERED: VANCOMYCIN IV 1,500 MG in SODIUM CHLORIDE 0.9% 500ML 500 ML IV STA (17:52)
[2018-03-28] MEDS ORDERED: MAGNESIUM SULFATE 1GM / D5W 1 GM BAG IV STA (17:57)
[2018-03-28] MEDS ORDERED: HYDROmorphone INJ 1 MG/ML SYR IV STA (17:57)
[2018-03-28] MEDS ORDERED: VANCOMYCIN CONSULT ACTIVE PRN ×2 (18:00→18:30)
--- NOTE | 2018-03-28 18:14 | DIAGNOSTIC IMAGING REPORT ---
CHEST ONE VIEW PORTABLE HISTORY: fevers, weakness COMPARISON: Chest 12/01/2017. FINDINGS: No pneumothorax. Small bilateral pleural effusions, cardiomegaly, and interstitial pulmonary edema. No focal lung consolidations. IMPRESSION: Mild to moderate interstitial pulmonary edema and small bilateral pleural effusions. Electronically signed by: Torsten Pierer M.D. 03/28/2018 6:13 PM Dictated Date/Time: 03/28/2018 5:45 PM
[2018-03-28] MEDS ORDERED: ACETAMINOPHEN 325 MG TAB PO PRN (18:45)
[2018-03-28] MEDS ORDERED: ONDANSETRON INJ 2 MG/ML 2 ML VIAL IV PRN (18:45)
[2018-03-28] MEDS ORDERED: MAGNESIUM HYDROXIDE SUSP 30 ML UDC PO PRN (18:45)
[2018-03-28] MEDS ORDERED: ALUMINUM/MAGNESIUM/SIMETH (MAALOX MAX) 30 ML UDC PO PRN (18:45)
--- NOTE | 2018-03-28 19:09 | History and Physical ---
History & Physical Date & Time of Service: March 28, 2018 at 18:49 Chief Complaint: Weakness,Pain In Legs,Chills,Back Pain Primary Care Physician: Wes Burgos M.D. History of Present Illness Source: patient, family, clinic records, hospital records This is a 78 year old female with a past medical history of diabetes, lumbago and neuropathic pain, HTN, hypothyroidism, L foot cellulitis on long-term antibiotics, recent episode of atrial fibrillation - presents with chills, weakness, back pain, lack of appetite. She was recently admitted to [facility] with similar symptoms. At that time, they could not find a cause of chills/weakness/lack of appetite - she was empirically started on IV abx, and then transitioned back to oral abx. for her chronic L foot cellulitis. She got home and a few days later her chills returned, she could not tolerate anything by mouth, and had some nausea. Presented to the ER: Found to have elevated white count, elevated CRP and elevated lipase Abdominal CT with no specific findings EKG - NSR Past Medical/Surgical History Medical Problems: (1) Back muscle spasm (2) Cellulitis (3) Chills with fever (4) Diabetes (5) Foot infection (6) Osteoarthritis of left foot (7) Pes planus (8) PICC line infection (9) Vertigo Surgical Problems: (1) Postoperative state Family History Diabetes mellitus FHx: cancer Social History Smoking Status: Never Smoker Drug Use: none Marital Status: Occupational Status: retired Immunizations History of Influenza Vaccine: No History of Tetanus Vaccine?: No History of Pneumococcal: No History of Hepatitis B Vaccine: No Allergies Coded Allergies: No Known Allergies (Unverified , 03/28/18) Home Medications Scheduled Amiodarone Hcl (Cordarone), 200 MG PO BID Aspirin (Aspirin Chewable), 81 MG PO QPM Cefadroxil (Duricef), 500 MG PO DAILY Duloxetine Hcl (Cymbalta), 60 MG PO DAILY Fish Oil-Cholecalciferol (Fish Oil + D3), 1 CAP PO DAILY Gabapentin (Gabapentin), 200 MG PO BID Garlic (Garlic), 1 TAB PO DAILY Irbesartan-Hydrochlorothiazide (Avalide), 0.5 TAB PO QAM Levothyroxine Sodium (Levothyroxine Sodium), 50 MCG PO QAM Magnesium Oxide (Mag-Ox), 400 MG PO BID Meclizine Hcl (Meclizine Hcl), 2 TAB PO DAILY Metformin Hcl (Glucophage), 500 MG PO BID Omeprazole Magnesium (Cvs Omeprazole Magnesium), 20.6 MG PO DAILY Potassium Gluconate (Potassium Gluconate), 550 MG PO QAM Review of Systems Constitutional: + fever, + chills, + sweats, + weakness, + fatigue, No weight loss Eyes: No worsening of vision, No eye pain ENT: No hearing loss, No nasal symptoms, No sore throat, No tinnitus, No dental problems, No trouble swallowing Respiratory: + cough, No sputum, No wheezing, No shortness of breath, No dyspnea on exertion, No dyspnea at rest, No hemoptysis Cardiovascular: No chest pain, No orthopnea, No edema, No palpitations Abdomen: + nausea, No pain, No vomiting, No diarrhea, No constipation, No GI bleeding Musculoskeletal: + joint pain (mid to low back pain), No muscle pain, No swelling, No calf pain Genitourinary - Female: No dysuria, No urinary frequency, No urinary urgency, No urinary incontinence, No urinary retention, No hematuria Neurologic: + weakness, + balance problems, No numbness/tingling, No vertigo Psychiatric: No depression symptoms, No anxiety, No insomnia Endocrine: + fatigue, No excessive thirst, No excessive urination Hematologic / Lymphatic: No abnormal bleeding/bruising Integumentary: No rash, No itch Allergic / Immunologic: No environmental allergies, No seasonal allergies Physical Exam Vital Signs Date Time Temp Pulse Resp B/P (MAP) Pulse Ox O2 Delivery O2 Flow Rate FiO2 03/28/18 17:06 89 03/28/18 16:14 36.5 100 20 132/62 100 Room Air General Appearance: + pertinent finding (+lethargic, somnolent, weak, ill- appearing, with chills/rigors/shakes during exam) Head: normocephalic, atraumatic Eyes: normal inspection ENT: hearing grossly normal Neck: supple Respiratory/Chest: chest non-tender, lungs clear, normal breath sounds, no respiratory distress, no accessory muscle use Cardiovascular: regular rate, rhythm, no edema, no gallop, no JVD, no murmur, normal peripheral pulses Abdomen/GI: normal bowel sounds, non tender, soft Back: normal inspection, + muscle spasm, + paravertebral tenderness Extremities/Musculoskelatal: normal inspection, no calf tenderness, normal capillary refill, no pedal edema, normal range of motion Neurologic/Psych: no motor/sensory deficits, alert, normal mood/affect Skin: normal color, warm/dry, no rash Lymphatic: no adenopathy Diagnostics Laboratory Results Results Past 24 Hours Test 03/28/18 16:42 03/28/18 16:47 03/28/18 16:51 03/28/18 18:08 Range/Units White Blood Count 11.68 4.8-10.8 K/uL Red Blood Count 4.42 4.2-5.4 M/uL Hemoglobin 12.5 12.0-16.0 g/dL Hematocrit 36.0 37-47 % Mean Corpuscular Volume 81.4 80-100 fL Mean Corpuscular Hemoglobin 28.3 25-34 pg Mean Corpuscular Hemoglobin Concent 34.7 32-36 g/dl Platelet Count 322 130-400 K/uL Mean Platelet Volume 9.1 7.4-10.4 fL Neutrophils (%) (Auto) 89.6 % Lymphocytes (%) (Auto) 5.7 % Monocytes (%) (Auto) 2.9 % Eosinophils (%) (Auto) 0.3 % Basophils (%) (Auto) 0.3 % Neutrophils # (Auto) 10.47 1.4-6.5 K/uL Lymphocytes # (Auto) 0.66 1.2-3.4 K/uL Monocytes # (Auto) 0.34 0.11-0.59 K/uL Eosinophils # (Auto) 0.04 0-0.5 K/uL Basophils # (Auto) 0.03 0-0.2 K/uL RDW Standard Deviation 44.1 36.4-46.3 fL RDW Coefficient of Variation 15.0 11.5-14.5 % Immature Granulocyte % (Auto) 1.2 % Immature Granulocyte # (Auto) 0.14 0.00-0.02 K/uL Prothrombin Time 11.5 9.0-12.0 SECONDS Prothromb Time International Ratio 1.1 0.9-1.1 Activated Partial Thromboplast Time 37.8 21.0-31.0 SECONDS Partial Thromboplastin Ratio 1.5 Sodium Level 134 136-145 mmol/L Potassium Level 3.8 3.5-5.1 mmol/L Chloride Level 99 98-107 mmol/L Carbon Dioxide Level 26 21-32 mmol/L Anion Gap 8.0 17.0 16-25 mmol/L Blood Urea Nitrogen 19 7-18 mg/dl Creatinine 1.13 0.60-1.20 mg/dl Estimated GFR () 54.3 Estimated GFR (Non- 46.8 BUN/Creatinine Ratio 17.2 10-20 Random Glucose 98 70-99 mg/dl Calcium Level 8.9 8.5-10.1 mg/dl Phosphorus Level 2.7 2.5-4.9 mg/dl Magnesium Level 1.3 1.8-2.4 mg/dl Total Bilirubin 1.1 0.2-1 mg/dl Direct Bilirubin 0.4 0-0.2 mg/dl Aspartate Amino Transf (AST/SGOT) 69 15-37 U/L Alanine Aminotransferase (ALT/SGPT) 60 12-78 U/L Alkaline Phosphatase 108 45-117 U/L Total Creatine Kinase 208 26-192 U/L Creatine Kinase MB 4.6 0.5-3.6 ng/ml Creatine Kinase MB Ratio 2.2 0-3.0 Troponin I 0.035 0-0.045 ng/ml C-Reactive Protein 15.10 0-0.29 mg/dl Total Protein 7.1 6.4-8.2 gm/dl Albumin 2.8 3.4-5.0 gm/dl Lipase 3130 73-393 U/L Bedside Hemoglobin 12.9 12.0-16.0 g/dl Bedside Hematocrit 38 37-47 % Bedside Sodium 135 135-144 mEq/L Bedside Potassium 3.9 3.3-5.0 mEq/L Bedside Chloride 97 101-112 mEq/L Bedside Total CO2 26 24-31 mEq/l Bedside Blood Urea Nitrogen 21 7-18 mg/dl Bedside Creatinine 1.2 0.6-1.3 mg/dl Bedside Glucose (other) 104 70-99 mg/dl Bedside Ionized Calcium (Maximino) 1.16 1.12-1.32 mmol/l Bedside Lactic Acid Venous 1.94 0.90-1.70 mmol/L Test 03/28/18 18:09 Range/Units Microbiology Results 03/28/18 Blood Culture, Received Pending 03/28/18 Blood Culture, Received Pending Diagnostic Radiology ABDOMEN AND PELVIS CT WITH IV CONTRAST CT DOSE: 910.58 mGy.cm HISTORY: right flank pain TECHNIQUE: Multiaxial CT images of the abdomen and pelvis were performed following the use of intravenous contrast. A dose lowering technique was utilized adhering to the principles of ALARA. COMPARISON STUDY: None. FINDINGS: Small right and trace left pleural effusions. Interlobular septal thickening at the lung bases consistent with pulmonary edema. Bibasilar densities favor atelectasis. No pneumoperitoneum. No pneumatosis. 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 Posterior fusion within the lower lumbar spine. The bladder is mildly distended. Hysterectomy. Colonic diverticulosis. Mild pelvic floor collapse. No bowel wall thickening or obstruction. Normal appendix. Mild soft tissue thickening at the fundus of the gallbladder suggestive of adenomyomatosis. The liver, pancreas, adrenal glands are unremarkable. No hydronephrosis. Slightly heterogeneous appearance to the upper poles of the kidneys which may represent mild scarring. There is an exophytic 5.6 cm hypodense lesion within the lower pole the right kidney. This likely represents a cyst. This contains a punctate peripheral calcification. No retroperitoneal lymphadenopathy. The spleen. Normal in size. Mild asymmetry of the piriformis muscles which may be long-standing. IMPRESSION: 1. Small right and trace left pleural effusions with mild pulmonary edema. 2. No bowel wall thickening or obstruction. 3. Normal appendix. 4. No hydronephrosis. 5. Slightly heterogeneous appearance of the upper poles of the kidneys which favors scarring. 6. Additional findings as described above. CHEST ONE VIEW PORTABLE HISTORY: fevers, weakness COMPARISON: Chest 12/01/2017. FINDINGS: No pneumothorax. Small bilateral pleural effusions, cardiomegaly, and interstitial pulmonary edema. No focal lung consolidations. IMPRESSION: Mild to moderate interstitial pulmonary edema and small bilateral pleural effusions EKG Normal sinus rhythm Septal infarct , age undetermined Abnormal ECG Impression Assessment and Plan This is a 78 year old female with a past medical history of diabetes, lumbago and neuropathic pain, HTN, hypothyroidism, L foot cellulitis on long-term antibiotics, recent episode of atrial fibrillation - presents with chills, weakness, back pain, lack of appetite Leukocytosis Fevers/Chills - unknown source of infection - patient with hx. of L foot cellulitis; on chronic antibiotic therapy - will hold oral agents, and start Rocephin + Vanco empirically - UA pending - blood cultures pending - ID consulted - lactic acid and procalcitonin ordered Acute Pancreatitis - lipase elevated, unknown if pancreatitis is the cause - abdominal CT does not suggest pancreas inflammation - will make NPO - LR @ 100mL/hr - analgesics PRN - repeat lipase in AM Lumbago Radiculopathy - will check a Lumbar and Thoracic MRI - for now, continue Cymbalta and Gabapentin for nerve pain - Dilaudid PRN for pain Diabetes Mellitus, type 2 - hold metformin - check Ha1c in AM - holding off on insulin, BSGs on the lower end and she will be NPO for now - BSGs AC+HS Episode of Atrial Fibrillation - amiodarone 200mg BID - no anticoagulation; as per records, she had one episode, likely from infectious source - monitor in tele Hypothyroidism - check TSH - continue Synthroid DVT ppx - subq heparin FULL CODE Resuscitation Status VTE Prophylaxis Will order VTE Prophylaxis: Yes
[2018-03-28] MEDS ORDERED: PATIENT'S HEIGHT AND/OR WEIGHT NEEDED SCH (20:00)
--- NOTE | 2018-03-28 20:09 | DIAGNOSTIC IMAGING REPORT ---
RIGHT UPPER EXTREMITY VENOUS DOPPLER HISTORY: right antecubital fossa Swelling extending up arm with recent iv placement COMPARISON STUDY: None. FINDINGS: The right internal jugular vein is patent. There is normal flow within the right subclavian vein. There is normal flow and compressibility within the right axillary, basilic, brachial, radial, and ulnar veins. Nonocclusive thrombus seen within the right cephalic vein at the antecubital fossa. This is consistent with a superficial thrombus. IMPRESSION: No DVT within the right upper extremity. Nonocclusive superficial thrombus within the right cephalic vein at the antecubital fossa. Electronically signed by: Torsten Pierre M.D. 03/28/2018 8:08 PM Dictated Date/Time: 03/28/2018 8:07 PM
[2018-03-28] MEDS: GABAPENTIN 100 MG CAP PO SCH (21:00)
[2018-03-28] MEDS: AMIODARONE 200 MG TAB PO SCH (21:00)
[2018-03-28 21:07] VITALS: BP 110/65; PULSE 98; TEMP 37.9; O2SAT 92; BMI 28.7
--- NOTE | 2018-03-28 22:21 | DIAGNOSTIC IMAGING REPORT ---
THORACIC SPINE MRI HISTORY: mid to low back pain with chills TECHNIQUE: Multiplanar multisequence MRI of the thoracic spine was performed without the use of contrast. COMPARISON: Abdomen and pelvis CT 03/28/2018. FINDINGS: Small right and trace left pleural effusions are again noted. Mild motion artifact. Old, healed right posterior rib fractures. Mild disc space narrowing throughout the majority of the thoracic spine a few small scattered endplate osteophytes. No significant central canal or neural foraminal narrowing. The thoracic spinal cord is normal in course, caliber, and signal intensity. There is a T8 vertebral body hemangioma. No endplate erosions. Paraspinal soft tissues are unremarkable. No fracture or subluxation. IMPRESSION: 1. No fracture or subluxation within the thoracic spine. 2. Mild degenerative disc disease throughout the majority of the thoracic spine. No significant central canal or neural foraminal narrowing. 3. The thoracic spinal cord demonstrates a normal signal intensity. 4. Small right and trace left pleural effusions are again noted. Electronically signed by: Torsten Pierre M.D. 03/28/2018 10:19 PM Dictated Date/Time: 03/28/2018 10:13 PM
--- NOTE | 2018-03-28 22:29 | DIAGNOSTIC IMAGING REPORT ---
LUMBAR SPINE MRI HISTORY: mid-low back pain with LE radiation TECHNIQUE: Multiplanar multisequence MRI of the lumbar spine was performed without the use of contrast. COMPARISON: Lumbar spine 04/10/2013. FINDINGS: For the purpose of the report the L5-S1 disc space will be located on axial image 27 of 30. Straightening of the lumbar spine. Alignment is intact. No fracture or subluxation. The conus terminates at the T12-L1 disc space level. Partial fusion of the L5-S1 and L4-L5 disc space levels. Severe disc space narrowing at L3-L4. Mild disc space narrowing at L1-L2 and L2-L3. There is a vertebral body hemangioma at L2. Posterior decompression and fusion from L3 through L5 with pedicle screws and rods. Ill-defined fluid/edema at the laminectomy sites is nonspecific but likely due to the postoperative change. No endplate erosions identified. A 5.3 cm exophytic T2 hyperintense, T1 hypointense lesion within the lower pole the right kidney. This favors a cyst. T12-L1: Small focal central disc protrusion without significant central canal or neural foraminal narrowing. L1-L2: No significant central canal or neural foraminal narrowing. L2-L3: No significant central canal or neural foraminal narrowing. L3-L4: Small focal central disc protrusion resulting in mild central canal narrowing. There is also mild bilateral neural foraminal narrowing. L4-L5: Small broad-based posterior disc bulge. No significant central canal narrowing due to the prior laminectomy. Mild bilateral neural foraminal narrowing. L5-S1: Mild bilateral neural foraminal narrowing. No significant central canal narrowing. IMPRESSION: 1. No fractures identified within the lumbar spine. 2. Straightening of the lumbar spine. 3. Posterior decompression fusion at L3-L5. Small amount of ill-defined fluid/edema at the laminectomy sites is nonspecific but likely related to the postoperative change.. 4. Multilevel degenerative changes as described above most pronounced at the L3-L4 level where there is mild central canal narrowing. Electronically signed by: Torsten Pierre M.D. 03/28/2018 10:28 PM Dictated Date/Time: 03/28/2018 10:19 PM
[2018-03-28 22:30] VITALS: BP 110/65; PULSE 98; TEMP 37.9; O2SAT 92
[2018-03-28] MEDS: LACTATED RINGER'S 1000ML 1,000 ML IV SCH (23:18)
[2018-03-28] MEDS: CEFTRIAXONE SOD INJ 1 GM in DEXTROSE 5% ADD-VANTAGE 50ML 50 ML IV SCH (23:19)
[2018-03-28 23:38] VITALS: BP 92/54; PULSE 95; TEMP 38.2; O2SAT 96
[2018-03-29] VITALS (10 sets, daily range): BP systolic 94–140; BP diastolic 52–82; PULSE 79–89; TEMP 36.5–37.9; O2SAT 93–98; Ht 162.6 cm; Wt 77.4 kg
[2018-03-29] MEDS ORDERED: KETOROLAC TROMETHAMINE 15 MG/ML VIAL IV. ONE (01:15)
[2018-03-29] MEDS ORDERED: NURSING VERBAL MED ORDER ONE (01:15)
[2018-03-29 05:22] LABS: BASO % 0.3 %; BASO ABS # 0.03 K/uL (0-0.2); EOS % 0.7 %; EOS ABS # 0.06 K/uL (0-0.5); HEMATOCRIT 31.1 % (37-47); HEMOGLOBIN 10.6 g/dL (12.0-16.0); IG# 0.06 K/uL (0.00-0.02); LYMPH % 10.5 %; LYMPH ABS # 0.93 K/uL (1.2-3.4); MEAN CELL VOLUME 82.3 fL (80-100); MEAN CORPUSCULAR HGB CONC 34.1 g/dl (32-36); MEAN PLATELET VOLUME 8.2 fL (7.4-10.4); MONO % 4.2 %; MONO ABS # 0.37 K/uL (0.11-0.59); NEUT % 83.6 %; NEUT ABS # 7.42 K/uL (1.4-6.5); PLATELET COUNT 252 K/uL (130-400); RED CELL DISTRIBUTION WIDTH CV 15.4 % (11.5-14.5); RED CELL DISTRIBUTION WIDTH SD 46.1 fL (36.4-46.3); WHITE BLOOD COUNT 8.87 K/uL (4.8-10.8)
[2018-03-29] MEDS: HEPARIN SOD 5000 UNIT/0.5 ML CARP SQ SCH ×3 (05:38→21:24)
[2018-03-29] MEDS: LEVOTHYROXINE 50 MCG TAB PO SCH (05:39)
[2018-03-29 06:01] LABS: ALBUMIN 2.2 gm/dl (3.4-5.0); CREATININE 1.12 mg/dl (0.60-1.20); POTASSIUM 3.7 mmol/L (3.5-5.1)
[2018-03-29 06:02] LABS: PHOSPHORUS 3.8 mg/dl (2.5-4.9)
[2018-03-29 06:03] LABS: TOTAL PROTEIN 5.9 gm/dl (6.4-8.2)
[2018-03-29 06:32] LABS: HEMOGLOBIN A1C 7.1 % (4.5-5.6)
[2018-03-29] MEDS: DULOXETINE HCL 60 MG CAP PO SCH (07:16)
[2018-03-29] MEDS: AMIODARONE 200 MG TAB PO SCH ×2 (07:16→20:29)
[2018-03-29] MEDS: LOSARTAN POTASSIUM 25 MG TAB PO SCH (07:16)
[2018-03-29] MEDS: ASPIRIN 81 MG ECTAB PO SCH (07:18)
[2018-03-29] MEDS: MAGNESIUM OXIDE 400 MG TAB PO SCH ×2 (07:18→20:29)
[2018-03-29] MEDS: GABAPENTIN 100 MG CAP PO SCH ×2 (07:18→20:30)
[2018-03-29] MEDS: PANTOprazole SOD 40 MG TAB PO SCH (07:19)
[2018-03-29] MEDS: LACTATED RINGER'S 1000ML 1,000 ML IV SCH ×2 (07:33→19:09)
[2018-03-29] MEDS ORDERED: NON-FORMULARY MEDICATION (Potassium Gluconate 550 MG) PO SCH (09:00)
--- NOTE | 2018-03-29 10:32 | Progress Note ---
Progress Note Date of Service March 29, 2018. Progress Note ID Consult Dictated #[id number] A/P: 1. Fever -multiple potential sources, pancreatitis, rue clot, foot cellulitis -Continue abx for now, follow cultures -thank you
--- NOTE | 2018-03-29 11:09 | INFECT. DISEASE CONSULTATION ---
DATE OF CONSULTATION: 03/29/2018 HISTORY OF PRESENT ILLNESS: This is a 78-year-old female who was admitted to the hospital with subjective fevers and chills. She did have a T-max of 38.2 since admission to the hospital. She does have a history of a left foot cellulitis for which she was on an unknown oral antibiotic prior to admission. She is unable to tell me what antibiotic she was on, but she did feel that there was some improvement in her cellulitis on this. She was started empirically on vancomycin and Rocephin and appears to be tolerating this well. She did have a mild leukocytosis in the ER of 11,000, which has improved to 8 this morning. Blood cultures were obtained and pending. She did have a CAT scan of the abdomen and pelvis, which was unremarkable. Her lipase is elevated at 3130 and a pro-calcitonin is negative. She did have upper extremity ultrasounds, which did show a right cephalic nonocclusive clot. On my examination, she is lethargic. She is n.p.o., but states that she is hungry and is asking for breakfast. She denies any cough, chest pain, shortness of breath, nausea, vomiting, or diarrhea. REVIEW OF SYSTEMS: Her remaining review of systems is unremarkable. PAST MEDICAL HISTORY: Significant for chronic back pain, diabetes, foot cellulitis, osteoarthritis, history of PICC line infection, and vertigo. FAMILY HISTORY: Noncontributory. SOCIAL HISTORY: Negative for tobacco use, alcohol use, or drug use. ALLERGIES: She has no known drug allergies. MEDICATIONS: Vancomycin, aspirin, Cymbalta, Protonix, Cozaar, Synthroid, subQ heparin, Rocephin, amiodarone, Neurontin, magnesium, Tylenol, Maalox, milk of magnesia, Dilaudid. PHYSICAL EXAMINATION: VITAL SIGNS: T-max is 38.2, current temperature is 36.9, pulse 85, respiratory rate 18, blood pressure 116/64, oxygen saturation is 98% on 1 liter nasal cannula. GENERAL: She is somewhat lethargic, but appropriate and arousable. She is alert. HEENT: Extraocular muscles are intact. Mucous membranes were dry. HEART: Regular. LUNGS: Clear bilaterally. She does have poor inspiratory effort. ABDOMEN: Soft, nontender, nondistended. EXTREMITIES: There is no lower extremity edema bilaterally. There is no erythema. LABORATORY STUDIES: CBC today, white blood cell count 8.8, hemoglobin 10.6, platelets 252. Chemistry panel: Sodium 136, potassium 3.7, chloride 103, bicarbonate 25, BUN 19, creatinine 1.1, glucose 97. LFTs are within normal limits with a mild elevation of AST at 43. Again, pro-calcitonin is unremarkable. Lipase this morning is now 3603. UA is negative. Blood cultures are pending. MRI of the spine shows degenerative disease, but no evidence for infection. IMPRESSION AND PLAN: Febrile illness, certainly this could be related to a left foot infection; however, she does feel this is improving. She does have an elevated lipase, which would be concerning for noninfectious etiology. Additionally, she does have a small clot in the right upper extremity. She does have a history of a PICC line infection. It is unknown if this was in her right or left upper extremity or how long ago her PICC was removed, but certainly this could be a cause for fever as well. She will remain on empiric antibiotics pending the results of blood cultures. We will follow along with you.
--- NOTE | 2018-03-29 11:56 | Gastrointestinal Consultation ---
Gastrointestinal Consultation Date of Consultation: March 29, 2018 Attending Physician: Dr. Murdock Consulting Physician: Dr. Kign Reason for Consultation: question pancreatitis History of Present Illness Patient is a 78 year old female patient of Dr. Burgos in [facility] who came to [facility] on 03/28 for cellulitis. She has chronic back pain as well. Lipase was checked and was >3000 yesterday and again today (3100 yesterday and 3600). CT is w/o any pancreas abnormalities and the pt denies any abdominal pain, nausea, vomiting, jaundice, dark urine or acholic stools. She has a gallbladder. She denies any alcohol intake. Past Medical/Surgical History Medical Problems: (1) Back pain Status: Acute (2) Cellulitis Status: Acute (3) Generalized weakness Status: Acute (4) Hypomagnesemia Status: Acute (5) Pancreatitis Status: Acute (6) Phlebitis of right arm Status: Acute (7) PICC line infection Status: Acute (8) Pleural effusion Status: Acute Past Medical History: 1. Back pain 2. Cellulitis 3. DM 4. Osteoarthritis Past Surgical History: 1. Foot surgery by Dr. Cordero Aug 2017 2. Foot debridement by Dr. Cordero Nov 15, 2017 3. Hysterectomy Family History Diabetes mellitus FHx: cancer Social History Smoking Status: Never Smoker Drug Use: none Marital Status: Housing Status: lives with family Occupation Status: retired Allergies Coded Allergies: No Known Allergies (Unverified , 03/28/18) Current Medications Home Meds and Scripts Medications Dose Route/Sig Max Daily Dose Days Date Category Dose Instructions [facility] Omeprazole Magnesium (Omeprazole Magnesium) 20.6 Mg Cap 20.6 Mg PO DAILY 03/28/18 Reported Cordarone (Amiodarone Hcl) 200 Mg Tab 200 Mg PO BID 03/28/18 Reported PT IS TO TAKE BID FOR 2 WEEKS AND JUST ONCE DAILY AFTER. Mag-Ox (Magnesium Oxide) 400 Mg Tab 400 Mg PO BID 03/28/18 Reported Duricef (Cefadroxil) 500 Mg Cap 500 Mg PO DAILY 03/28/18 Reported Meclizine Hcl 25 Mg Tab 2 Tab PO DAILY 30 03/28/18 Reported Garlic Unknown Strength Cap 1 Tab PO DAILY 03/28/18 Reported Fish Oil + D3 (Fish Oil-Cholecalciferol) 1 Cap Cap 1 Cap PO DAILY 03/28/18 Reported Cymbalta (Duloxetine Hcl) 60 Mg Cap 60 Mg PO DAILY 03/28/18 Reported Gabapentin 100 Mg Cap 200 Mg PO BID 03/28/18 Reported Glucophage (Metformin Hcl) 500 Mg Tab 500 Mg PO BID 08/10/17 Reported Potassium Gluconate 550 Mg Tab 550 Mg PO QAM 08/10/17 Reported Levothyroxine Sodium 50 Mcg Tab 50 Mcg PO QAM 08/10/17 Reported Avalide (Irbesartan-Hydrochlorothiazide) 1 Tab Tab 0.5 Tab PO QAM 08/10/17 Reported PT MED LIST READS 150/12.5 Aspirin Chewable (Aspirin) 81 Mg Chew 81 Mg PO QPM 04/10/13 Reported PT GIVEN INSTRUCTIONS BY DR CORDERO TO CONTINUE ASPIRIN PRIOR TO SURGERY - DO NOT STOP Review of Systems Constitutional: + sweats, No fever, No chills, No weight loss, No weakness Eyes: No eye pain, No redness ENT: No sore throat, No trouble swallowing, No pain on swallowing Respiratory: No cough, No wheezing, No shortness of breath, No dyspnea on exertion Cardiac: No chest pain, No edema, No palpitations Abdomen: + see HPI, No pain, No nausea, No vomiting, No constipation, No GI bleeding Neuro: No memory loss, No weakness, No numbness/tingling, No vertigo, No balance problems Psych: No depression symptoms, No anxiety, No insomnia Heme: No abnormal bleeding/bruising, No night sweats Endo: + fatigue, No excessive thirst, No excessive urination Skin: + problem reported (pt tells me that she had a skin tear when she removed a bandaid - causing this admission), No rash, No itch, No new/changing skin lesions, No jaundice Physical Exam Date Time Temp Pulse Resp B/P (MAP) Pulse Ox O2 Delivery O2 Flow Rate FiO2 03/29/18 08:00 Nasal Cannula 2.0 03/29/18 07:01 36.9 85 18 116/64 (81) 98 Nasal Cannula 1.0 03/29/18 04:00 Nasal Cannula 2.0 03/29/18 04:00 37.0 84 18 120/71 (87) 96 Nasal Cannula 2.0 03/29/18 02:19 37.1 95/57 (70) 03/29/18 01:26 37.9 89 94/52 (66) 03/29/18 00:00 Nasal Cannula 2.0 03/28/18 23:38 38.2 95 20 92/54 (67) 96 Nasal Cannula 2.0 03/28/18 22:30 37.9 98 20 110/65 (80) 92 Nasal Cannula 2.0 03/28/18 21:07 37.9 98 20 110/65 92 Room Air 03/28/18 19:32 103 20 106/64 93 03/28/18 19:21 103 20 106/64 93 Nasal Cannula 3.0 03/28/18 18:30 104 16 114/70 95 Room Air 03/28/18 17:06 89 03/28/18 16:14 36.5 100 20 132/62 100 Room Air General Appearance: no apparent distress Eyes: normal inspection, EOMI Neck: supple, no adenopathy, thyroid normal, no JVD Respiratory/Chest: chest non-tender, normal breath sounds, no accessory muscle use, + crackles (coarse throughout) Cardiovascular: regular rate, rhythm, no JVD, no murmur Abdomen: normal bowel sounds, non tender, soft, no organomegaly Extremities: normal inspection, no pedal edema, normal capillary refill, + pertinent finding (left foot dressed and in a boot) Neurologic/Psych: alert, normal mood/affect, oriented x 3 Skin: normal color, no jaundice, warm/dry, no rash Laboratory Results Last 24 Hours Test 03/28/18 16:42 03/28/18 16:47 03/28/18 16:51 03/28/18 18:08 White Blood Count 11.68 K/uL Red Blood Count 4.42 M/uL Hemoglobin 12.5 g/dL Hematocrit 36.0 % Mean Corpuscular Volume 81.4 fL Mean Corpuscular Hemoglobin 28.3 pg Mean Corpuscular Hemoglobin Concent 34.7 g/dl Platelet Count 322 K/uL Mean Platelet Volume 9.1 fL Neutrophils (%) (Auto) 89.6 % Lymphocytes (%) (Auto) 5.7 % Monocytes (%) (Auto) 2.9 % Eosinophils (%) (Auto) 0.3 % Basophils (%) (Auto) 0.3 % Neutrophils # (Auto) 10.47 K/uL Lymphocytes # (Auto) 0.66 K/uL Monocytes # (Auto) 0.34 K/uL Eosinophils # (Auto) 0.04 K/uL Basophils # (Auto) 0.03 K/uL RDW Standard Deviation 44.1 fL RDW Coefficient of Variation 15.0 % Immature Granulocyte % (Auto) 1.2 % Immature Granulocyte # (Auto) 0.14 K/uL Prothrombin Time 11.5 SECONDS Prothromb Time International Ratio 1.1 Activated Partial Thromboplast Time 37.8 SECONDS Partial Thromboplastin Ratio 1.5 Sodium Level 134 mmol/L Potassium Level 3.8 mmol/L Chloride Level 99 mmol/L Carbon Dioxide Level 26 mmol/L Anion Gap 8.0 mmol/L 17.0 mmol/L Blood Urea Nitrogen 19 mg/dl Creatinine 1.13 mg/dl Estimated GFR () 54.3 Estimated GFR (Non- 46.8 BUN/Creatinine Ratio 17.2 Random Glucose 98 mg/dl Calcium Level 8.9 mg/dl Phosphorus Level 2.7 mg/dl Magnesium Level 1.3 mg/dl Total Bilirubin 1.1 mg/dl Direct Bilirubin 0.4 mg/dl Aspartate Amino Transf (AST/SGOT) 69 U/L Alanine Aminotransferase (ALT/SGPT) 60 U/L Alkaline Phosphatase 108 U/L Total Creatine Kinase 208 U/L Creatine Kinase MB 4.6 ng/ml Creatine Kinase MB Ratio 2.2 Troponin I 0.035 ng/ml C-Reactive Protein 15.10 mg/dl Total Protein 7.1 gm/dl Albumin 2.8 gm/dl Lipase 3130 U/L Procalcitonin 0.59 ng/ml Bedside Hemoglobin 12.9 g/dl Bedside Hematocrit 38 % Bedside Sodium 135 mEq/L Bedside Potassium 3.9 mEq/L Bedside Chloride 97 mEq/L Bedside Total CO2 26 mEq/l Bedside Blood Urea Nitrogen 21 mg/dl Bedside Creatinine 1.2 mg/dl Bedside Glucose (other) 104 mg/dl Bedside Ionized Calcium (Maximino) 1.16 mmol/l Bedside Lactic Acid Venous 1.94 mmol/L Urine Color YELLOW Urine Appearance CLEAR Urine pH 7.0 Urine Specific [place] 1.015 Urine Protein NEG Urine Glucose (UA) NEG Urine Ketones NEG Urine Occult Blood NEG Urine Nitrite NEG Urine Bilirubin NEG Urine Urobilinogen NEG Urine Leukocyte Esterase NEG Urine WBC (Auto) 1-5 /hpf Urine RBC (Auto) 0-4 /hpf Urine Hyaline Casts (Auto) 1-5 /lpf Urine Epithelial Cells (Auto) 10-20 /lpf Urine Bacteria (Auto) NEG Test 03/28/18 19:11 03/29/18 00:34 03/29/18 01:20 03/29/18 05:09 Lactic Acid Level 2.7 mmol/L 0.9 mmol/L Bedside Glucose 129 mg/dl White Blood Count 8.87 K/uL Red Blood Count 3.78 M/uL Hemoglobin 10.6 g/dL Hematocrit 31.1 % Mean Corpuscular Volume 82.3 fL Mean Corpuscular Hemoglobin 28.0 pg Mean Corpuscular Hemoglobin Concent 34.1 g/dl Platelet Count 252 K/uL Mean Platelet Volume 8.2 fL Neutrophils (%) (Auto) 83.6 % Lymphocytes (%) (Auto) 10.5 % Monocytes (%) (Auto) 4.2 % Eosinophils (%) (Auto) 0.7 % Basophils (%) (Auto) 0.3 % Neutrophils # (Auto) 7.42 K/uL Lymphocytes # (Auto) 0.93 K/uL Monocytes # (Auto) 0.37 K/uL Eosinophils # (Auto) 0.06 K/uL Basophils # (Auto) 0.03 K/uL RDW Standard Deviation 46.1 fL RDW Coefficient of Variation 15.4 % Immature Granulocyte % (Auto) 0.7 % Immature Granulocyte # (Auto) 0.06 K/uL Sodium Level 136 mmol/L Potassium Level 3.7 mmol/L Chloride Level 103 mmol/L Carbon Dioxide Level 25 mmol/L Anion Gap 8.0 mmol/L Blood Urea Nitrogen 19 mg/dl Creatinine 1.12 mg/dl Est Creatinine Clear Calc Drug Dose 42.0 ml/min Estimated GFR () 54.9 Estimated GFR (Non- 47.3 BUN/Creatinine Ratio 17.0 Random Glucose 107 mg/dl Estimated Average Glucose 157 mg/dl Hemoglobin A1c 7.1 % Calcium Level 8.0 mg/dl Phosphorus Level 3.8 mg/dl Magnesium Level 2.1 mg/dl Total Bilirubin 0.6 mg/dl Aspartate Amino Transf (AST/SGOT) 43 U/L Alanine Aminotransferase (ALT/SGPT) 51 U/L Alkaline Phosphatase 90 U/L Total Protein 5.9 gm/dl Albumin 2.2 gm/dl Globulin 3.7 gm/dl Albumin/Globulin Ratio 0.6 Triglycerides Level 119 mg/dl Cholesterol Level 107 mg/dl HDL Cholesterol 28 mg/dl LDL Cholesterol, Calculated 55 mg/dl VLDL Cholesterol, Calculated 24 mg/dl Cholesterol/HDL Ratio 3.8 Lipase 3603 U/L Thyroid Stimulating Hormone (TSH) 3.170 uIu/ml Test 03/29/18 05:13 03/29/18 06:05 03/29/18 07:19 Lactic Acid Level 1.2 mmol/L Bedside Glucose 112 mg/dl 97 mg/dl Impression Patient is a 78 year old female who is admitted for cellulitis. GI is consulted for elevated lipase. She does not have symptoms of pancreatitis. Plan 1. RUQ ultrasound to r/o gallstones. 2. Plan for OP EUS in 6-8 weeks. Our office will call her to arrange. 3. Will start with clear liquids po today. If does not develop nausea/vomiting/ abdominal pain, then could advance diet. I performed a history and physical examination of the patient, including specifically on physical exam - no abdominal tenderness. I have discussed the patient's management with YAO Miller. Please refer to the nurse practitioner's note for the documented findings and plan of care. Patient with flank pain radiating to the leg, not typical for pancreatitis. Elevated Lipase but no imaging evidence of pancreatitis. Will obtain SOno to r/ o Gallstones and arrange for EUS as OP to r/o Pancreatic pathology. Supportive care for now.
--- NOTE | 2018-03-29 12:36 | Progress Note ---
Subjective Date of Service: March 29, 2018. Subjective Pt evaluation today including: conversation w/ patient, physical exam, lab review, review of studies, review of inpatient medication list Saw/examined the patient in room 289 She's feeling better than yesterday, currently seated in a chair Denies abdominal pain and epigastric pain has walked around and ambulated around the hallways still c/o mid to low back pain, R flank pain Problem List Medical Problems: (1) Back pain Status: Acute (2) Cellulitis Status: Acute (3) Generalized weakness Status: Acute (4) Hypomagnesemia Status: Acute (5) Pancreatitis Status: Acute (6) Phlebitis of right arm Status: Acute (7) PICC line infection Status: Acute (8) Pleural effusion Status: Acute Review of Systems Constitutional: + fever, + chills, + weakness Respiratory: No cough, No sputum, No shortness of breath Cardiac: No chest pain Abdomen: No pain, No nausea, No vomiting, No diarrhea Musculoskeletal: + joint pain Medications Current Inpatient Medications Medications (Trade) Dose Ordered Sig/Shannon Route Start Time Stop Time Status Last Admin Dose Admin Ioversol (Optiray 320) 100 ml UD PRN IV 03/28/18 16:45 04/01/18 16:44 Ceftriaxone Sodium 1 gm/ Dextrose 50 ml @ 100 mls/hr Q24H IV 03/28/18 23:00 03/30/18 22:59 03/28/18 23:19 100 MLS/HR Vancomycin HCl 1000 mg/Sodium Chloride 270 ml @ 125 mls/hr Q20H IV 03/29/18 14:00 03/31/18 13:59 Miscellaneous Information (Consult) 1 ea UD PRN N/A 03/28/18 18:30 04/27/18 18:29 Heparin Sodium (Porcine) (Heparin Sq 5000 Unit/0.5ml) 5,000 unit Q8 SQ 03/29/18 06:00 04/28/18 05:59 03/29/18 05:38 5,000 UNIT Acetaminophen (Tylenol Tab) 650 mg Q4H PRN PO 03/28/18 18:45 04/27/18 18:44 Al Hydrox/Mg Hydrox/Simethicone (Maalox Max Susp) 15 ml Q4H PRN PO 03/28/18 18:45 04/27/18 18:44 Magnesium Hydroxide (Milk Of Magnesia Susp) 30 ml Q12H PRN PO 03/28/18 18:45 04/27/18 18:44 Ondansetron HCl (Zofran Inj) 4 mg Q6H PRN IV 03/28/18 18:45 04/27/18 18:44 Aspirin (Ecotrin Tab) 81 mg QAM PO 03/29/18 09:00 04/28/18 08:59 Amiodarone HCl (Cordarone Tab) 200 mg BID PO 03/28/18 21:00 04/27/18 20:59 Duloxetine HCl (Cymbalta Cap) 60 mg DAILY PO 03/29/18 09:00 04/28/18 08:59 Gabapentin (Neurontin Cap) 200 mg BID PO 03/28/18 21:00 04/27/18 20:59 Levothyroxine Sodium (Synthroid Tab) 50 mcg DAILYBB PO 03/29/18 06:30 04/28/18 06:29 Magnesium Oxide (Mag-Ox Tab) 400 mg BID PO 03/28/18 21:00 04/27/18 20:59 Pantoprazole Sodium (Protonix Tab) 40 mg DAILY PO 03/29/18 09:00 04/28/18 08:59 Losartan Potassium (coZAAR TAB) 25 mg QAM PO 03/29/18 09:00 04/28/18 08:59 Hydromorphone HCl (Dilaudid Inj) 0.5 mg Q4 PRN IV 03/28/18 18:45 04/11/18 18:44 Lactated Ringer's 1,000 ml @ 100 mls/hr Q10H IV 03/28/18 22:30 04/27/18 22:29 03/29/18 07:33 100 MLS/HR Objective Vital Signs Date Time Temp Pulse Resp B/P (MAP) Pulse Ox O2 Delivery O2 Flow Rate FiO2 03/29/18 12:00 Nasal Cannula 2.0 03/29/18 11:47 36.8 79 18 115/65 (82) 94 1.0 03/29/18 08:00 Nasal Cannula 2.0 03/29/18 08:00 Nasal Cannula 2.0 03/29/18 07:01 36.9 85 18 116/64 (81) 98 Nasal Cannula 1.0 03/29/18 04:00 Nasal Cannula 2.0 03/29/18 04:00 37.0 84 18 120/71 (87) 96 Nasal Cannula 2.0 03/29/18 02:19 37.1 95/57 (70) 03/29/18 01:26 37.9 89 94/52 (66) 03/29/18 00:00 Nasal Cannula 2.0 03/28/18 23:38 38.2 95 20 92/54 (67) 96 Nasal Cannula 2.0 03/28/18 22:30 37.9 98 20 110/65 (80) 92 Nasal Cannula 2.0 03/28/18 21:07 37.9 98 20 110/65 92 Room Air 03/28/18 19:32 103 20 106/64 93 03/28/18 19:21 103 20 106/64 93 Nasal Cannula 3.0 03/28/18 18:30 104 16 114/70 95 Room Air 03/28/18 17:06 89 03/28/18 16:14 36.5 100 20 132/62 100 Room Air Physical Exam General Appearance: + mild distress (secondary to R flank pain) Respiratory/Chest: chest non-tender, lungs clear, normal breath sounds, no respiratory distress, no accessory muscle use Cardiovascular: regular rate, rhythm, no edema, no murmur Abdomen: normal bowel sounds, non tender, soft Extremities: normal range of motion, non-tender, normal inspection, no pedal edema, no calf tenderness Neurologic/Psychiatric: no motor/sensory deficits, alert, normal mood/affect Laboratory Results Last 24 Hours Test 03/28/18 16:42 03/28/18 16:47 03/28/18 16:51 03/28/18 18:08 White Blood Count 11.68 K/uL Red Blood Count 4.42 M/uL Hemoglobin 12.5 g/dL Hematocrit 36.0 % Mean Corpuscular Volume 81.4 fL Mean Corpuscular Hemoglobin 28.3 pg Mean Corpuscular Hemoglobin Concent 34.7 g/dl Platelet Count 322 K/uL Mean Platelet Volume 9.1 fL Neutrophils (%) (Auto) 89.6 % Lymphocytes (%) (Auto) 5.7 % Monocytes (%) (Auto) 2.9 % Eosinophils (%) (Auto) 0.3 % Basophils (%) (Auto) 0.3 % Neutrophils # (Auto) 10.47 K/uL Lymphocytes # (Auto) 0.66 K/uL Monocytes # (Auto) 0.34 K/uL Eosinophils # (Auto) 0.04 K/uL Basophils # (Auto) 0.03 K/uL RDW Standard Deviation 44.1 fL RDW Coefficient of Variation 15.0 % Immature Granulocyte % (Auto) 1.2 % Immature Granulocyte # (Auto) 0.14 K/uL Prothrombin Time 11.5 SECONDS Prothromb Time International Ratio 1.1 Activated Partial Thromboplast Time 37.8 SECONDS Partial Thromboplastin Ratio 1.5 Sodium Level 134 mmol/L Potassium Level 3.8 mmol/L Chloride Level 99 mmol/L Carbon Dioxide Level 26 mmol/L Anion Gap 8.0 mmol/L 17.0 mmol/L Blood Urea Nitrogen 19 mg/dl Creatinine 1.13 mg/dl Estimated GFR () 54.3 Estimated GFR (Non- 46.8 BUN/Creatinine Ratio 17.2 Random Glucose 98 mg/dl Calcium Level 8.9 mg/dl Phosphorus Level 2.7 mg/dl Magnesium Level 1.3 mg/dl Total Bilirubin 1.1 mg/dl Direct Bilirubin 0.4 mg/dl Aspartate Amino Transf (AST/SGOT) 69 U/L Alanine Aminotransferase (ALT/SGPT) 60 U/L Alkaline Phosphatase 108 U/L Total Creatine Kinase 208 U/L Creatine Kinase MB 4.6 ng/ml Creatine Kinase MB Ratio 2.2 Troponin I 0.035 ng/ml C-Reactive Protein 15.10 mg/dl Total Protein 7.1 gm/dl Albumin 2.8 gm/dl Lipase 3130 U/L Procalcitonin 0.59 ng/ml Bedside Hemoglobin 12.9 g/dl Bedside Hematocrit 38 % Bedside Sodium 135 mEq/L Bedside Potassium 3.9 mEq/L Bedside Chloride 97 mEq/L Bedside Total CO2 26 mEq/l Bedside Blood Urea Nitrogen 21 mg/dl Bedside Creatinine 1.2 mg/dl Bedside Glucose (other) 104 mg/dl Bedside Ionized Calcium (Maximino) 1.16 mmol/l Bedside Lactic Acid Venous 1.94 mmol/L Urine Color YELLOW Urine Appearance CLEAR Urine pH 7.0 Urine Specific [place] 1.015 Urine Protein NEG Urine Glucose (UA) NEG Urine Ketones NEG Urine Occult Blood NEG Urine Nitrite NEG Urine Bilirubin NEG Urine Urobilinogen NEG Urine Leukocyte Esterase NEG Urine WBC (Auto) 1-5 /hpf Urine RBC (Auto) 0-4 /hpf Urine Hyaline Casts (Auto) 1-5 /lpf Urine Epithelial Cells (Auto) 10-20 /lpf Urine Bacteria (Auto) NEG Test 03/28/18 19:11 03/29/18 00:34 03/29/18 01:20 03/29/18 05:09 Lactic Acid Level 2.7 mmol/L 0.9 mmol/L Bedside Glucose 129 mg/dl White Blood Count 8.87 K/uL Red Blood Count 3.78 M/uL Hemoglobin 10.6 g/dL Hematocrit 31.1 % Mean Corpuscular Volume 82.3 fL Mean Corpuscular Hemoglobin 28.0 pg Mean Corpuscular Hemoglobin Concent 34.1 g/dl Platelet Count 252 K/uL Mean Platelet Volume 8.2 fL Neutrophils (%) (Auto) 83.6 % Lymphocytes (%) (Auto) 10.5 % Monocytes (%) (Auto) 4.2 % Eosinophils (%) (Auto) 0.7 % Basophils (%) (Auto) 0.3 % Neutrophils # (Auto) 7.42 K/uL Lymphocytes # (Auto) 0.93 K/uL Monocytes # (Auto) 0.37 K/uL Eosinophils # (Auto) 0.06 K/uL Basophils # (Auto) 0.03 K/uL RDW Standard Deviation 46.1 fL RDW Coefficient of Variation 15.4 % Immature Granulocyte % (Auto) 0.7 % Immature Granulocyte # (Auto) 0.06 K/uL Sodium Level 136 mmol/L Potassium Level 3.7 mmol/L Chloride Level 103 mmol/L Carbon Dioxide Level 25 mmol/L Anion Gap 8.0 mmol/L Blood Urea Nitrogen 19 mg/dl Creatinine 1.12 mg/dl Est Creatinine Clear Calc Drug Dose 42.0 ml/min Estimated GFR () 54.9 Estimated GFR (Non- 47.3 BUN/Creatinine Ratio 17.0 Random Glucose 107 mg/dl Estimated Average Glucose 157 mg/dl Hemoglobin A1c 7.1 % Calcium Level 8.0 mg/dl Phosphorus Level 3.8 mg/dl Magnesium Level 2.1 mg/dl Total Bilirubin 0.6 mg/dl Aspartate Amino Transf (AST/SGOT) 43 U/L Alanine Aminotransferase (ALT/SGPT) 51 U/L Alkaline Phosphatase 90 U/L Total Protein 5.9 gm/dl Albumin 2.2 gm/dl Globulin 3.7 gm/dl Albumin/Globulin Ratio 0.6 Triglycerides Level 119 mg/dl Cholesterol Level 107 mg/dl HDL Cholesterol 28 mg/dl LDL Cholesterol, Calculated 55 mg/dl VLDL Cholesterol, Calculated 24 mg/dl Cholesterol/HDL Ratio 3.8 Lipase 3603 U/L Thyroid Stimulating Hormone (TSH) 3.170 uIu/ml Test 03/29/18 05:13 03/29/18 06:05 03/29/18 07:19 Lactic Acid Level 1.2 mmol/L Bedside Glucose 112 mg/dl 97 mg/dl Assessment and Plan This is a 78 year old female with a past medical history of diabetes, lumbago and neuropathic pain, HTN, hypothyroidism, L foot cellulitis on long-term antibiotics, recent episode of atrial fibrillation - presents with chills, weakness, back pain, lack of appetite Leukocytosis Fevers/Chills 03/29 - white count resolved - afebrile x24 hours - blood cultures pending x2 - on empiric abx. - appreciate ID input 03/28 - unknown source of infection - patient with hx. of L foot cellulitis; on chronic antibiotic therapy - will hold oral agents, and start Rocephin + Vanco empirically - UA pending - blood cultures pending - ID consulted - lactic acid and procalcitonin ordered Elevated Lipase Possible Acute Pancreatitis 03/29 - lipase elevated, unsure of actually acute pancreatitis - RUQ U/S pending 03/28 - lipase elevated, unknown if pancreatitis is the cause - abdominal CT does not suggest pancreas inflammation - will make NPO - LR @ 100mL/hr - analgesics PRN - repeat lipase in AM Superficial Thrombophlebitis RUQ - doppler ruled out DVTs, superficial clot noted - no warmth or tenderness at the site - monitor Lumbago Radiculopathy - will check a Lumbar and Thoracic MRI - for now, continue Cymbalta and Gabapentin for nerve pain - Dilaudid PRN for pain Diabetes Mellitus, type 2 - hold metformin - Ha1c = 7.1%, controlled - holding off on insulin, BSGs on the lower end and she will be NPO for now - BSGs AC+HS Episode of Atrial Fibrillation - amiodarone 200mg BID - no anticoagulation; as per records, she had one episode, likely from infectious source - monitor in tele Hypothyroidism - TSH within normal limits - continue Synthroid DVT ppx - subq heparin FULL CODE
[2018-03-29] MEDS: VANCOMYCIN IV 1,000 MG in SODIUM CHLORIDE 0.9% 250ML 250 ML IV SCH (13:21)
--- NOTE | 2018-03-29 15:30 | DIAGNOSTIC IMAGING REPORT ---
ABDOMINAL ULTRASOUND, RIGHT UPPER QUADRANT HISTORY: elevated lipase ? gallstones. COMPARISON: Abdomen and pelvis CT 03/28/2018. FINDINGS: Pancreas: The pancreas demonstrates a normal echotexture. Liver: Unremarkable. Gallbladder: No gallbladder wall thickening. No gallstones. CBD: 5 mm. Right kidney: No hydronephrosis. A 5.5 cm lower pole cyst. This demonstrate a punctate mural calcification. Miscellaneous: Small right pleural effusion. IMPRESSION: Small right pleural effusion, unchanged. Otherwise, no significant abnormality identified within the right upper quadrant. Electronically signed by: Torsten Pierre M.D. 03/29/2018 3:29 PM Dictated Date/Time: 03/29/2018 3:26 PM
[2018-03-29] MEDS: CEFTRIAXONE SOD INJ 1 GM in DEXTROSE 5% ADD-VANTAGE 50ML 50 ML IV SCH (22:30)
[2018-03-30 04:26] VITALS: BP 128/69; PULSE 82; TEMP 36.5; O2SAT 95
[2018-03-30 05:51] LABS: HEMATOCRIT 30.4 % (37-47); HEMOGLOBIN 10.1 g/dL (12.0-16.0); MEAN CELL VOLUME 81.9 fL (80-100); MEAN CORPUSCULAR HEMOGLOBIN 27.2 pg (25-34); MEAN CORPUSCULAR HGB CONC 33.2 g/dl (32-36); MEAN PLATELET VOLUME 8.6 fL (7.4-10.4); PLATELET COUNT 280 K/uL (130-400); RED CELL DISTRIBUTION WIDTH CV 15.4 % (11.5-14.5); RED CELL DISTRIBUTION WIDTH SD 45.5 fL (36.4-46.3)
[2018-03-30] MEDS: LEVOTHYROXINE 50 MCG TAB PO SCH (06:06)
[2018-03-30] MEDS: LACTATED RINGER'S 1000ML 1,000 ML IV SCH (06:06)
[2018-03-30] MEDS: HEPARIN SOD 5000 UNIT/0.5 ML CARP SQ SCH (06:10)
[2018-03-30 06:12] LABS: CALCIUM 8.3 mg/dl (8.5-10.1); CREATININE 0.82 mg/dl (0.60-1.20); POTASSIUM 3.6 mmol/L (3.5-5.1)
[2018-03-30] MEDS ORDERED: POTASSIUM CHLORIDE 20 MEQ TABCR PO STA (07:44)
[2018-03-30 07:59] VITALS: BP 126/67; PULSE 83; TEMP 36.5; O2SAT 94
[2018-03-30] MEDS: LOSARTAN POTASSIUM 25 MG TAB PO SCH (08:04)
[2018-03-30] MEDS: AMIODARONE 200 MG TAB PO SCH ×2 (08:04→21:18)
[2018-03-30] MEDS: ASPIRIN 81 MG ECTAB PO SCH (08:04)
[2018-03-30] MEDS: GABAPENTIN 100 MG CAP PO SCH ×2 (08:04→21:17)
[2018-03-30] MEDS: MAGNESIUM OXIDE 400 MG TAB PO SCH ×2 (08:04→21:17)
[2018-03-30] MEDS: PANTOprazole SOD 40 MG TAB PO SCH (08:04)
[2018-03-30] MEDS: DULOXETINE HCL 60 MG CAP PO SCH (08:04)
[2018-03-30] MEDS: VANCOMYCIN IV 1,000 MG in SODIUM CHLORIDE 0.9% 250ML 250 ML IV SCH (09:01)
--- NOTE | 2018-03-30 09:52 | Gastroenterology Progress Note ---
Progress Note Date of Service: March 30, 2018 Subjective Pt evaluation today including: conversation w/ patient, physical exam, chart review, lab review, review of studies, conversation w/ senior staff consultant, review of inpatient medication list Ms. Dale is a 78 yr old female admitted for cellulitis with findings of lipase >3000, CT w/o pancreatitis, pt w/o any abdominal pain/nausea or vomiting. She is S/P cholecystectomy and RUQ US yesterday w/o abnormal biliary findings. Review of Systems Constitutional: No fever ENT: No hearing loss Respiratory: No cough Cardiac: No chest pain Abdomen: No pain, No nausea, No vomiting, No diarrhea, No constipation, No GI bleeding Musculoskeletal: + joint pain (foot pain) Neuro: No memory loss Psych: No depression symptoms Heme: No abnormal bleeding/bruising Endo: No fatigue Skin: No rash Medications Current Inpatient Medications Medications (Trade) Dose Ordered Sig/Shannon Route Start Time Stop Time Status Last Admin Dose Admin Ioversol (Optiray 320) 100 ml UD PRN IV 03/28/18 16:45 04/01/18 16:44 Ceftriaxone Sodium 1 gm/ Dextrose 50 ml @ 100 mls/hr Q24H IV 03/28/18 23:00 03/30/18 22:59 03/29/18 22:30 100 MLS/HR Vancomycin HCl 1000 mg/Sodium Chloride 270 ml @ 125 mls/hr Q20H IV 03/29/18 14:00 03/30/18 23:59 03/30/18 09:01 125 MLS/HR Miscellaneous Information (Consult) 1 ea UD PRN N/A 03/28/18 18:30 04/27/18 18:29 Heparin Sodium (Porcine) (Heparin Sq 5000 Unit/0.5ml) 5,000 unit Q8 SQ 03/29/18 06:00 04/28/18 05:59 03/30/18 06:10 5,000 UNIT Acetaminophen (Tylenol Tab) 650 mg Q4H PRN PO 03/28/18 18:45 04/27/18 18:44 Al Hydrox/Mg Hydrox/Simethicone (Maalox Max Susp) 15 ml Q4H PRN PO 03/28/18 18:45 04/27/18 18:44 Magnesium Hydroxide (Milk Of Magnesia Susp) 30 ml Q12H PRN PO 03/28/18 18:45 04/27/18 18:44 Ondansetron HCl (Zofran Inj) 4 mg Q6H PRN IV 03/28/18 18:45 04/27/18 18:44 Aspirin (Ecotrin Tab) 81 mg QAM PO 03/29/18 09:00 04/28/18 08:59 03/30/18 08:04 81 MG Amiodarone HCl (Cordarone Tab) 200 mg BID PO 03/28/18 21:00 04/27/18 20:59 03/30/18 08:04 200 MG Duloxetine HCl (Cymbalta Cap) 60 mg DAILY PO 03/29/18 09:00 04/28/18 08:59 03/30/18 08:04 60 MG Gabapentin (Neurontin Cap) 200 mg BID PO 03/28/18 21:00 04/27/18 20:59 03/30/18 08:04 200 MG Levothyroxine Sodium (Synthroid Tab) 50 mcg DAILYBB PO 03/29/18 06:30 04/28/18 06:29 03/30/18 06:06 50 MCG Magnesium Oxide (Mag-Ox Tab) 400 mg BID PO 03/28/18 21:00 04/27/18 20:59 03/30/18 08:04 400 MG Pantoprazole Sodium (Protonix Tab) 40 mg DAILY PO 03/29/18 09:00 04/28/18 08:59 03/30/18 08:04 40 MG Losartan Potassium (coZAAR TAB) 25 mg QAM PO 03/29/18 09:00 04/28/18 08:59 03/30/18 08:04 25 MG Hydromorphone HCl (Dilaudid Inj) 0.5 mg Q4 PRN IV 03/28/18 18:45 04/11/18 18:44 Objective Vital Signs Date Time Temp Pulse Resp B/P (MAP) Pulse Ox O2 Delivery O2 Flow Rate FiO2 03/30/18 08:00 Nasal Cannula 2.0 03/30/18 07:59 36.5 83 18 126/67 (86) 94 Room Air 03/30/18 04:26 36.5 82 18 128/69 (88) 95 Room Air 03/30/18 04:00 Room Air 03/30/18 00:00 Room Air 03/29/18 23:04 36.7 82 20 140/68 (92) 93 Room Air 03/29/18 20:00 Room Air 03/29/18 19:50 36.8 89 18 125/82 (96) 94 Room Air 03/29/18 16:00 Room Air 03/29/18 15:22 36.7 88 18 123/69 (87) 95 03/29/18 14:47 36.5 84 18 129/77 (94) 97 Room Air 03/29/18 12:00 Nasal Cannula 2.0 03/29/18 11:47 36.8 79 18 115/65 (82) 94 1.0 03/29/18 11:12 85 96 Physical Exam General Appearance: no apparent distress Neck: no JVD Respiratory/Chest: lungs clear Cardiovascular: regular rate, rhythm, no JVD, no murmur Abdomen: soft Neurologic/Psych: alert, normal mood/affect, oriented x 3 Skin: no jaundice Laboratory Results Last 24 Hours Test 03/29/18 11:22 03/29/18 16:12 03/29/18 20:21 03/30/18 05:40 Bedside Glucose 99 mg/dl 100 mg/dl 175 mg/dl White Blood Count 5.90 K/uL Red Blood Count 3.71 M/uL Hemoglobin 10.1 g/dL Hematocrit 30.4 % Mean Corpuscular Volume 81.9 fL Mean Corpuscular Hemoglobin 27.2 pg Mean Corpuscular Hemoglobin Concent 33.2 g/dl RDW Standard Deviation 45.5 fL RDW Coefficient of Variation 15.4 % Platelet Count 280 K/uL Mean Platelet Volume 8.6 fL Sodium Level 140 mmol/L Potassium Level 3.6 mmol/L Chloride Level 109 mmol/L Carbon Dioxide Level 25 mmol/L Anion Gap 6.0 mmol/L Blood Urea Nitrogen 16 mg/dl Creatinine 0.82 mg/dl Est Creatinine Clear Calc Drug Dose 57.5 ml/min Estimated GFR () 80.0 Estimated GFR (Non- 69.0 BUN/Creatinine Ratio 19.3 Random Glucose 116 mg/dl Lactic Acid Level 0.9 mmol/L Calcium Level 8.3 mg/dl Magnesium Level 1.9 mg/dl Lipase 3399 U/L Test 03/30/18 07:15 Bedside Glucose 115 mg/dl Assessment and Plan Ms. Dale is a 78 yr old female with elevated lipase w/o other signs/symptoms of pancreatitis. Plan: OP EUS in 6 weeks. GI will sign off. I performed a history and physical examination of the patient, I have discussed the patient's management with Prudence Moura. Please refer to her note for the documented findings and plan of care.
[2018-03-30] MEDS ORDERED: HEPARIN IV LOW DOSE NO BOLUS SCH (10:51)
[2018-03-30] MEDS ORDERED: METOPROLOL TARTRATE 25 MG TAB PO ONE (11:00)
--- NOTE | 2018-03-30 11:13 | Cardiology Consultation ---
Cardiology Consultation Date of Consultation: March 30, 2018 History of Present Illness Patient is a 78 year old female seen in cardiology consultation per the request of Dr Naranjo for the evaluation of atrial fibrillation. The patient has not been followed by [facility] cardiology in the past. I looked her up in her outpatient record, and found no additional history regarding past cardiac status and her outpatient [facility] chart. She has a history of type 2 diabetes mellitus and in August, she had left foot surgery. She was readmitted from late October, until early November 2017 due to concerns of left foot cellulitis with retained hardware. Blood cultures were negative at that time. But a wound culture yielded growth of staph aureus as well as gram-negative bacilli. She was ultimately treated with IV antibiotics through a PICC line and was discharged on Rocephin. She apparently been transitioned to an oral antibiotic in the interim, however the history is quite unclear in terms of the details of her recent antibiotic care. She has an apparent history of the past PICC line infection and her right- sided PICC had been removed. She describes 2 weeks of subjective fevers and chills. This included heavy perspiration with soaking of her pajamas at night. She ultimately sought treatment and was hospitalized for about a week at [facility]. She was subsequently discharged with no definite source of fever found. She was apparently diagnosed with atrial fibrillation. The patient recalls being told that she had an elevated heart rate into the 140 bpm range per what her providers told her a week ago at the other facility. She does not recall being told that she had the word "atrial fibrillation" she was not placed on anticoagulation or beta hyacinth, but was apparently discharged on amiodarone 200 mg twice daily. The patient was admitted for subjective fever and had a mild temperature on presentation. She has had lipase levels in excess of 3000, but CT imaging of the abdomen as well as ultrasound have been negative thus far and she has no abdominal discomfort. On presentation 2 days ago on 03/28/18 her initial EKG revealed sinus bradycardia at 88 bpm with evidence of an age-indeterminate septal infarction in lead V2. An echocardiogram performed at the outside facility dated 03/24/18 per the report describes moderate right ventricular dilatation and mild tricuspid regurgitation. The left ventricle chamber size was reportedly normal with an ejection fraction of 55% and normal left ventricular myocardial thickness. A ventilation/perfusion scan performed 03/23/18 at the outside facility was felt to be low risk for pulmonary embolism. Past Medical/Surgical History Problem List: Medical Problems: (1) Chills with fever (2) Diabetes (3) Foot infection (4) Osteoarthritis of left foot (5) Pes planus (6) Vertigo (7) apparent recent diagnosis of atrial fibrillation Surgical Problems: (1) Postoperative state Review Of Systems See above for pertinent positives & negatives. A total of 10 systems reviewed and were otherwise negative. Allergies Coded Allergies: No Known Allergies (Unverified , 03/28/18) Medications Reported Home Medications Medications Dose Route/Sig Max Daily Dose Days Date Category Dose Instructions [facility]vs Omeprazole Magnesium (Omeprazole Magnesium) 20.6 Mg Cap 20.6 Mg PO DAILY 03/28/18 Reported Cordarone (Amiodarone Hcl) 200 Mg Tab 200 Mg PO BID 03/28/18 Reported PT IS TO TAKE BID FOR 2 WEEKS AND JUST ONCE DAILY AFTER. Mag-Ox (Magnesium Oxide) 400 Mg Tab 400 Mg PO BID 03/28/18 Reported Duricef (Cefadroxil) 500 Mg Cap 500 Mg PO DAILY 03/28/18 Reported Meclizine Hcl 25 Mg Tab 2 Tab PO DAILY 30 03/28/18 Reported Garlic Unknown Strength Cap 1 Tab PO DAILY 03/28/18 Reported Fish Oil + D3 (Fish Oil-Cholecalciferol) 1 Cap Cap 1 Cap PO DAILY 03/28/18 Reported Cymbalta (Duloxetine Hcl) 60 Mg Cap 60 Mg PO DAILY 03/28/18 Reported Gabapentin 100 Mg Cap 200 Mg PO BID 03/28/18 Reported Glucophage (Metformin Hcl) 500 Mg Tab 500 Mg PO BID 08/10/17 Reported Potassium Gluconate 550 Mg Tab 550 Mg PO QAM 08/10/17 Reported Levothyroxine Sodium 50 Mcg Tab 50 Mcg PO QAM 08/10/17 Reported Avalide (Irbesartan-Hydrochlorothiazide) 1 Tab Tab 0.5 Tab PO QAM 08/10/17 Reported PT MED LIST READS 150/12.5 Aspirin Chewable (Aspirin) 81 Mg Chew 81 Mg PO QPM 04/10/13 Reported PT GIVEN INSTRUCTIONS BY DR RIVERA TO CONTINUE ASPIRIN PRIOR TO SURGERY - DO NOT STOP Physical Exam Vital Signs (Last 8hrs): Last 8 Hrs Date Time Temp Pulse Resp B/P (MAP) Pulse Ox O2 Delivery O2 Flow Rate FiO2 03/30/18 08:00 Nasal Cannula 2.0 03/30/18 07:59 36.5 83 18 126/67 (86) 94 Room Air 03/30/18 04:26 36.5 82 18 128/69 (88) 95 Room Air 03/30/18 04:00 Room Air General Appearance: Alert, chronically ill in appearance Head: Normocephalic Atraumatic. Eyes: PERRLA, EOMI, conjunctiva and sclera clear Neck: Supple. No carotid bruits noted. No JVD. No HJD. Respiratory: Breath sounds clear to auscultation bilaterally. No w/r/r. Cardiovascular: Reg rate and rhythm. S1 and S2 noted. No murmurs, rubs, gallops. PMI non displace. Abdomen: Normal bowel sounds, soft nontender. no abdominal bruits. Extremities: No edema, no clubbing or cyanosis. distal pulses 2/4 bilaterally. Neuro: No focal deficits. Psychiatric: Normal affect. Data Last Resulted 03/30/18 05:40 Last Resulted 03/30/18 05:40 EKG as outlined above Assessment & Plan Telemetry: Currently reveals rate controlled atrial fibrillation in the 70 bpm range. Impression: 1. Paroxysmal atrial fibrillation, currently rate controlled atrial fibrillation 2. [id number] score of 4 for age over 75, female, with diabetes 3. Small bilateral pleural effusions 4. Concerns for underlying infection, history of chronic foot infection? if this is source of have additional source 5. Recent echo with RV enlargement, normal LV.-outside echo report 03/23/18 6. Elevated lipase, negative abdominal imaging Recommendations: Continue PO amiodarone, add metoprolol tartrate 12.5 mg BID, add low dose heparin infusion for stroke prophylaxis. Avoiding DOAC therapy for now given elevated lipase, unknown infection source. In absence of infection DVT /PE could case fever. Upper extremity superficial phlebitis noted. Has risk factors for LE DVT, chronic foot pathology, recent hospital stay. Had recent low risk V/Q scan, but would have low threshold for repeating LE venous duplex and considering CTA for excluding PE. Will differ this to primary team, as I am starting empiric heparin at present anyway. Add ESR. Pt dose have risk for subacute bacterial endocarditis. I am going to repeat an echocardiogram, recommend ongoing antibiotic therapy. If we determine if there is evidence of endocarditis will need to discontinue her anticoagulation. May need to consider diuretics to keep I/Os equal. However will hold off given lipase.
[2018-03-30 11:22] LABS: BASO % 0.5 %; BASO ABS # 0.03 K/uL (0-0.2); EOS % 2.7 %; EOS ABS # 0.15 K/uL (0-0.5); HEMATOCRIT 31.1 % (37-47); HEMOGLOBIN 10.4 g/dL (12.0-16.0); IG# 0.03 K/uL (0.00-0.02); LYMPH % 28.9 %; LYMPH ABS # 1.58 K/uL (1.2-3.4); MEAN CELL VOLUME 82.7 fL (80-100); MEAN CORPUSCULAR HEMOGLOBIN 27.7 pg (25-34); MEAN PLATELET VOLUME 8.5 fL (7.4-10.4); MONO ABS # 0.44 K/uL (0.11-0.59); NEUT % 59.4 %; NEUT ABS # 3.24 K/uL (1.4-6.5); PLATELET COUNT 272 K/uL (130-400); RED CELL DISTRIBUTION WIDTH CV 15.4 % (11.5-14.5); RED CELL DISTRIBUTION WIDTH SD 45.8 fL (36.4-46.3); WHITE BLOOD COUNT 5.47 K/uL (4.8-10.8)
[2018-03-30 11:25] LABS: PTT PATIENT 37.8 SECONDS (21.0-31.0)
[2018-03-30 11:29] VITALS: BP 151/89; PULSE 72; TEMP 36.4; O2SAT 95
[2018-03-30 11:31] LABS: MEAN CORPUSCULAR HGB CONC 33.4 g/dl (32-36)
[2018-03-30] MEDS: HEPARIN 25,000 UNIT/500ML D5W 500 ML IV SCH (11:49)
--- NOTE | 2018-03-30 14:04 | Progress Note ---
Subjective Date of Service: March 30, 2018. Subjective pt not on floor, blood cultures remain negative. afebrile. tolerating abx. wbc 5.9 lipase trending down, ultrasound negative. Problem List Medical Problems: (1) Back pain Status: Acute (2) Cellulitis Status: Acute (3) Generalized weakness Status: Acute (4) Hypomagnesemia Status: Acute (5) Pancreatitis Status: Acute (6) Phlebitis of right arm Status: Acute (7) PICC line infection Status: Acute (8) Pleural effusion Status: Acute Objective Vital Signs Date Time Temp Pulse Resp B/P (MAP) Pulse Ox O2 Delivery O2 Flow Rate FiO2 03/30/18 12:00 Nasal Cannula 2.0 03/30/18 11:29 36.4 72 18 151/89 (109) 95 Room Air 03/30/18 08:00 Nasal Cannula 2.0 03/30/18 07:59 36.5 83 18 126/67 (86) 94 Room Air 03/30/18 04:26 36.5 82 18 128/69 (88) 95 Room Air 03/30/18 04:00 Room Air 03/30/18 00:00 Room Air 03/29/18 23:04 36.7 82 20 140/68 (92) 93 Room Air 03/29/18 20:00 Room Air 03/29/18 19:50 36.8 89 18 125/82 (96) 94 Room Air 03/29/18 16:00 Room Air 03/29/18 15:22 36.7 88 18 123/69 (87) 95 03/29/18 14:47 36.5 84 18 129/77 (94) 97 Room Air Laboratory Results Item Value Date Time Blood Culture - Preliminary Resulted 03/28/18 1656 Blood NO GROWTH TO DATE. Blood Culture - Preliminary Resulted 03/28/18 1642 Blood NO GROWTH TO DATE. Last 24 Hours Test 03/29/18 16:12 03/29/18 20:21 03/30/18 05:40 03/30/18 07:15 Bedside Glucose 100 mg/dl 175 mg/dl 115 mg/dl White Blood Count 5.90 K/uL Red Blood Count 3.71 M/uL Hemoglobin 10.1 g/dL Hematocrit 30.4 % Mean Corpuscular Volume 81.9 fL Mean Corpuscular Hemoglobin 27.2 pg Mean Corpuscular Hemoglobin Concent 33.2 g/dl RDW Standard Deviation 45.5 fL RDW Coefficient of Variation 15.4 % Platelet Count 280 K/uL Mean Platelet Volume 8.6 fL Sodium Level 140 mmol/L Potassium Level 3.6 mmol/L Chloride Level 109 mmol/L Carbon Dioxide Level 25 mmol/L Anion Gap 6.0 mmol/L Blood Urea Nitrogen 16 mg/dl Creatinine 0.82 mg/dl Est Creatinine Clear Calc Drug Dose 57.5 ml/min Estimated GFR () 80.0 Estimated GFR (Non- 69.0 BUN/Creatinine Ratio 19.3 Random Glucose 116 mg/dl Lactic Acid Level 0.9 mmol/L Calcium Level 8.3 mg/dl Magnesium Level 1.9 mg/dl Lipase 3399 U/L Test 03/30/18 11:04 03/30/18 11:12 03/30/18 11:18 Prothrombin Time 10.5 SECONDS Prothromb Time International Ratio 1.0 Activated Partial Thromboplast Time 37.8 SECONDS Partial Thromboplastin Ratio 1.5 White Blood Count 5.47 K/uL Red Blood Count 3.76 M/uL Hemoglobin 10.4 g/dL Hematocrit 31.1 % Mean Corpuscular Volume 82.7 fL Mean Corpuscular Hemoglobin 27.7 pg Mean Corpuscular Hemoglobin Concent 33.4 g/dl Platelet Count 272 K/uL Mean Platelet Volume 8.5 fL Neutrophils (%) (Auto) 59.4 % Lymphocytes (%) (Auto) 28.9 % Monocytes (%) (Auto) 8.0 % Eosinophils (%) (Auto) 2.7 % Basophils (%) (Auto) 0.5 % Neutrophils # (Auto) 3.24 K/uL Lymphocytes # (Auto) 1.58 K/uL Monocytes # (Auto) 0.44 K/uL Eosinophils # (Auto) 0.15 K/uL Basophils # (Auto) 0.03 K/uL RDW Standard Deviation 45.8 fL RDW Coefficient of Variation 15.4 % Immature Granulocyte % (Auto) 0.5 % Immature Granulocyte # (Auto) 0.03 K/uL Bedside Glucose 198 mg/dl Assessment and Plan (1) Foot infection Assessment & Plan: continue abx, if remains afebrile and blood cultures negative, can transition back to po abx to complete previous course
--- NOTE | 2018-03-30 14:24 | DIAGNOSTIC IMAGING REPORT ---
ULTRASOUND BILATERAL LOWER EXTREMITY VENOUS CLINICAL HISTORY: Leg pain. COMPARISON STUDY: Bilateral lower extremity venous ultrasound dated 07/14/2017. TECHNIQUE: Real-time, grayscale, and color Doppler sonography of the deep veins of the right and left lower extremity was performed from the inguinal crease to the calf. Compression and augmentation were utilized. FINDINGS: There is no sonographic evidence of deep venous thrombosis identified in the right or left lower extremity. The common femoral, superficial femoral, and popliteal veins are patent and normally compressible bilaterally. The greater saphenous vein and the profunda femoris vein at the junction with the common femoral vein are clear in both legs. The visualized calf veins are patent bilaterally. A right-sided popliteal cyst measures 5.9 x 1.8 x 3.5 cm. IMPRESSION: 1. There is no sonographic evidence of deep venous thrombosis identified in the right or left lower extremity. 2. Right-sided Chun's cyst. Electronically signed by: Brigido Valiente M.D. 03/30/2018 2:22 PM Dictated Date/Time: 03/30/2018 2:21 PM
[2018-03-30 15:10] VITALS: BP 119/75; PULSE 67; TEMP 36.6; O2SAT 95
--- NOTE | 2018-03-30 15:16 | ECHOCARDIOGRAM REPORT ---
*NOTICE TO RECEIVING [employer] This information is strictly Confidential and protected under [place] law. [place] law prohibits you from making any further disclosure of this information unless further disclosure is expressly permitted by the written consent of the person to whom it pertains or is authorized by law. A general authorization for the release of medical or other information is not sufficient for this purpose. Hospital accepts no responsibility if the information is made available to any other person, INCLUDING THE PATIENT. Interpretation Summary * Name: BROWN DONIS Study Date: 03/30/2018 11:21 AM BP: 151/89 mmHg * Patient Location: [facility]\S\[id number]\S\2 HR: 73 * : 1940 (M/d/yyyy) Gender: Female Height: 64 in * Age: 78 yrs Ethnicity: [place] Weight: 167 lb * Ordering Physician: Ray Sauer * Referring Physician: Self, Referred * Performed By: Jenny Aguilar RCS * * Reason For Study: FEVER * BSA: 1.8 m2 * -- Conclusions -- * The left ventricle is normal in size. * There is mild concentric left ventricular hypertrophy. * Ejection Fraction = 50-55%. * The right ventricular systolic function is normal. * The left atrial size is normal. * Right atrial size is normal. * No significant valvular pathology. Procedure Details * A complete two-dimensional transthoracic echocardiogram was performed (2D, M-mode, Doppler and color flow Doppler). Left Ventricle * The left ventricle is normal in size. * There is mild concentric left ventricular hypertrophy. * Ejection Fraction = 50-55%. Right Ventricle * The right ventricle is normal size. * The right ventricular systolic function is normal. Atria * The left atrial size is normal. * Right atrial size is normal. * No ASD detected; PFO is not assessed. Mitral Valve * There is moderate to severe mitral annular calcification. * There is mild to moderate mitral regurgitation. Tricuspid Valve * The tricuspid valve anatomy is normal. * There is moderate tricuspid regurgitation. Aortic Valve * The aortic valve is normal in structure and function. Pulmonic Valve * The pulmonic valve is not well visualized. Great Vessels * The aortic root and proximal ascending aorta are normal sized. Pericardium/Pleural * There is no pericardial effusion. MMode 2D Measurements and Calculations IVSd 1.1 cm IVSs 1.5 cm LVIDd 3.5 cm LVIDs 3.1 cm LVPWd 1.3 cm LVPWs 1.4 cm IVS/LVPW 0.91 FS 13.3 % EDV(Teich) 52.0 ml ESV(Teich) 36.9 ml EF(Teich) 29.2 % EDV(cubed) 44.1 ml ESV(cubed) 28.8 ml EF(cubed) 34.8 % % IVS thick 28.8 % % LVPW thick 12.3 % LV mass(C)d 137.5 grams LV mass(C)dI 75.9 grams/m\S\2 LV mass(C)s 151.6 grams LV mass(C)sI 83.7 grams/m\S\2 SV(Teich) 15.2 ml SI(Teich) 8.4 ml/m\S\2 SV(cubed) 15.3 ml SI(cubed) 8.5 ml/m\S\2 Ao root diam 3.0 cm Ao root area 6.9 cm\S\2 ACS 1.7 cm LA dimension 3.9 cm LA/Ao 1.3 LVOT diam 2.0 cm LVOT area 3.3 cm\S\2 LVAd ap4 31.8 cm\S\2 LVLd ap4 8.6 cm EDV(MOD-sp4) 96.8 ml EDV(sp4-el) 100.0 ml LVAs ap4 21.8 cm\S\2 LVLs ap4 7.5 cm ESV(MOD-sp4) 52.3 ml ESV(sp4-el) 53.9 ml EF(MOD-sp4) 46.0 % EF(sp4-el) 46.1 % LVAd ap2 35.6 cm\S\2 LVLd ap2 8.8 cm EDV(MOD-sp2) 117.6 ml EDV(sp2-el) 122.4 ml LVAs ap2 23.0 cm\S\2 LVLs ap2 7.6 cm ESV(MOD-sp2) 57.7 ml ESV(sp2-el) 59.5 ml EF(MOD-sp2) 50.9 % EF(sp2-el) 51.3 % LVLd %diff 2.7 % EDV(MOD-bp) 108.7 ml LVLs %diff 0.49 % ESV(MOD-bp) 55.2 ml EF(MOD-bp) 49.3 % SV(MOD-sp4) 44.5 ml SI(MOD-sp4) 24.5 ml/m\S\2 SV(MOD-sp2) 59.9 ml SI(MOD-sp2) 33.0 ml/m\S\2 SV(MOD-bp) 53.6 ml SI(MOD-bp) 29.6 ml/m\S\2 SV(sp4-el) 46.1 ml SI(sp4-el) 25.4 ml/m\S\2 SV(sp2-el) 62.8 ml SI(sp2-el) 34.7 ml/m\S\2 Doppler Measurements and Calculations MV E max kim 146.1 cm/sec MV P1/2t max kim 136.3 cm/sec MV P1/2t 89.3 msec MVA(P1/2t) 2.5 cm\S\2 MV dec slope 447.3 cm/sec\S\2 MV dec time 0.17 sec Ao V2 max 109.4 cm/sec Ao max PG 4.8 mmHg Ao max PG (full) 2.5 mmHg SHAUN(V,A) 2.3 cm\S\2 SHAUN(V,D) 2.3 cm\S\2 LV V1 max PG 2.3 mmHg LV V1 max 75.5 cm/sec MR max kim 501.3 cm/sec MR max PG 100.5 mmHg PA V2 max 55.2 cm/sec PA max PG 1.2 mmHg PI max kim 94.0 cm/sec PI max PG 3.5 mmHg PI dec slope 150.0 cm/sec\S\2 PI P1/2t 183.6 msec TR max kim 250.3 cm/sec
--- NOTE | 2018-03-30 15:25 | Progress Note ---
Internal Med Progress Note Date of Service: March 30, 2018. Provider Documentation: SUBJECTIVE: Patient seen and examined at the bedside. She has been on heparin IV after hospitalist medicine consulted cardiology for atrial fibrillation. Patient aware that she will be staying in the hospital today and expressed no further concerns. OBJECTIVE: Exam: General- no acute distress Eyes- EOMI Neck- no JVD Lungs- CTABL, no wheezing, breathing on room air Heart- irregular rhythm, rate controlled Abdomen- soft, nontender, + bowel sounds Extremities- no edema, bottom of left foot has a small ulcer without purulence or erythema Neuro- awake and alert ASSESSMENT & PLAN: This is a 78 year old female with a past medical history of diabetes, lumbago and neuropathic pain, HTN, hypothyroidism, Left foot cellulitis on long-term antibiotics, recent episode of atrial fibrillation - presents with chills, weakness, back pain, lack of appetite Infection workup -history of left foot cellulitis on chronic antibiotic therapy (was on outpatient cefadroxil, bottom of left foot has a small ulcer without purulence or erythema) admission WBC 11,000 on , blood cultures from 03/28/18 negative, WBC downtrending as patient had been empirically on Rocephin and Vancomycin empirically, Vancomycin stopped on 03/30/18 given negative blood cultures and to avoid renal toxicity, will also stop ceftriaxone on 03/30/15, will switch to oral Cephalexin as it is a first generation cephalosporin and cefadroxil is not available in formulary -wound care for left foot with small ulcer is adequate as wound is clean and dry and with dressing -initial differential included pancreatitis due to elevated lipase but no abdominal complaints and abdominal CT does not suggest pancreas inflammation, lipase downtrended after IV fluids, RUQ Ultrasound without abnormal biliary findings and gastroenterology service signed off and recommended outpatient EUS in 6 weeks Other fever workup Superficial Thrombophlebitis RUQ - No DVT within the right upper extremity. Nonocclusive superficial thrombus within the right cephalic vein at the antecubital fossa Lower extremity ultrasound: 1. There is no sonographic evidence of deep venous thrombosis identified in the right or left lower extremity. 2. Right-sided Chun 's cyst. -check ESR Paroxysmal atrial fibrillation ( [id number] score of 4 for age over 75, female, with diabetes), currently rate controlled atrial fibrillation -evaluated by cardiology service: Continue PO amiodarone, add metoprolol tartrate 12.5 mg BID, add low dose heparin infusion for stroke prophylaxis -Echocardiogram 03/30/18 * The left ventricle is normal in size. * There is mild concentric left ventricular hypertrophy. * Ejection Fraction = 50-55%. * The right ventricular systolic function is normal. * The left atrial size is normal. * Right atrial size is normal. * No significant valvular pathology. -no TTE evidence for endocarditis, will start warfarin while on heparin IV therapy for anticoagulation of atrial fibrillation Diabetes Mellitus, type 2 - hold home metformin - Ha1c = 7.1%, controlled -diabetic diet, insulin sliding scale Hypothyroidism - TSH within normal limits - continue Synthroid Lumbago Radiculopathy - Lumbar MRI: 1. No fractures identified within the lumbar spine. 2. Straightening of the lumbar spine. 3. Posterior decompression fusion at L3-L5. Small amount of ill-defined fluid/edema at the laminectomy sites is nonspecific but likely related to the postoperative change. 4. Multilevel degenerative changes as described above most pronounced at the L3-L4 level where there is mild central canal narrowing. - Thoracic MRI: normal - continue Cymbalta and Gabapentin for nerve pain - Dilaudid PRN for pain -no acute back pain complaints today DVT ppx - heparin drip, bridge to coumadin FULL CODE Vital Signs: Date Time Temp Pulse Resp B/P (MAP) Pulse Ox O2 Delivery O2 Flow Rate FiO2 03/30/18 15:10 36.6 67 18 119/75 (90) 95 03/30/18 12:00 Nasal Cannula 2.0 03/30/18 11:29 36.4 72 18 151/89 (109) 95 Room Air 03/30/18 08:00 Nasal Cannula 2.0 03/30/18 07:59 36.5 83 18 126/67 (86) 94 Room Air 03/30/18 04:26 36.5 82 18 128/69 (88) 95 Room Air 03/30/18 04:00 Room Air 03/30/18 00:00 Room Air 03/29/18 23:04 36.7 82 20 140/68 (92) 93 Room Air 03/29/18 20:00 Room Air 03/29/18 19:50 36.8 89 18 125/82 (96) 94 Room Air 03/29/18 16:00 Room Air Lab Results: Results Past 24 Hours Test 03/29/18 16:12 03/29/18 20:21 03/30/18 05:40 03/30/18 07:15 Range/Units Bedside Glucose 100 175 115 70-90 mg/dl White Blood Count 5.90 4.8-10.8 K/uL Red Blood Count 3.71 4.2-5.4 M/uL Hemoglobin 10.1 12.0-16.0 g/dL Hematocrit 30.4 37-47 % Mean Corpuscular Volume 81.9 80-100 fL Mean Corpuscular Hemoglobin 27.2 25-34 pg Mean Corpuscular Hemoglobin Concent 33.2 32-36 g/dl RDW Standard Deviation 45.5 36.4-46.3 fL RDW Coefficient of Variation 15.4 11.5-14.5 % Platelet Count 280 130-400 K/uL Mean Platelet Volume 8.6 7.4-10.4 fL Sodium Level 140 136-145 mmol/L Potassium Level 3.6 3.5-5.1 mmol/L Chloride Level 109 98-107 mmol/L Carbon Dioxide Level 25 21-32 mmol/L Anion Gap 6.0 3-11 mmol/L Blood Urea Nitrogen 16 7-18 mg/dl Creatinine 0.82 0.60-1.20 mg/dl Est Creatinine Clear Calc Drug Dose 57.5 ml/min Estimated GFR () 80.0 Estimated GFR (Non- 69.0 BUN/Creatinine Ratio 19.3 10-20 Random Glucose 116 70-99 mg/dl Lactic Acid Level 0.9 0.4-2.0 mmol/L Calcium Level 8.3 8.5-10.1 mg/dl Magnesium Level 1.9 1.8-2.4 mg/dl Lipase 3399 73-393 U/L Test 03/30/18 11:04 03/30/18 11:12 03/30/18 11:18 Range/Units Prothrombin Time 10.5 9.0-12.0 SECONDS Prothromb Time International Ratio 1.0 0.9-1.1 Activated Partial Thromboplast Time 37.8 21.0-31.0 SECONDS Partial Thromboplastin Ratio 1.5 White Blood Count 5.47 4.8-10.8 K/uL Red Blood Count 3.76 4.2-5.4 M/uL Hemoglobin 10.4 12.0-16.0 g/dL Hematocrit 31.1 37-47 % Mean Corpuscular Volume 82.7 80-100 fL Mean Corpuscular Hemoglobin 27.7 25-34 pg Mean Corpuscular Hemoglobin Concent 33.4 32-36 g/dl Platelet Count 272 130-400 K/uL Mean Platelet Volume 8.5 7.4-10.4 fL Neutrophils (%) (Auto) 59.4 % Lymphocytes (%) (Auto) 28.9 % Monocytes (%) (Auto) 8.0 % Eosinophils (%) (Auto) 2.7 % Basophils (%) (Auto) 0.5 % Neutrophils # (Auto) 3.24 1.4-6.5 K/uL Lymphocytes # (Auto) 1.58 1.2-3.4 K/uL Monocytes # (Auto) 0.44 0.11-0.59 K/uL Eosinophils # (Auto) 0.15 0-0.5 K/uL Basophils # (Auto) 0.03 0-0.2 K/uL RDW Standard Deviation 45.8 36.4-46.3 fL RDW Coefficient of Variation 15.4 11.5-14.5 % Immature Granulocyte % (Auto) 0.5 % Immature Granulocyte # (Auto) 0.03 0.00-0.02 K/uL Bedside Glucose 198 70-90 mg/dl
[2018-03-30] MEDS ORDERED: WARFARIN SOD 5 MG TAB PO ONE (16:00)
[2018-03-30] MEDS ORDERED: DEXTROSE 50% 50 ML SYR IV PRN (16:15)
[2018-03-30] MEDS ORDERED: GLUCOSE 10 TABS/TUBE PO PRN (16:15)
[2018-03-30] MEDS ORDERED: GLUCOSE 40% GEL 15 GM TUBE PO PRN (16:15)
[2018-03-30] MEDS ORDERED: GLUCAGON FOR INJ 1 MG VIAL SQ PRN (16:15)
[2018-03-30] MEDS ORDERED: CARBOHYDRATES FOR HYPOGLYCEMIA PO PRN (16:15)
[2018-03-30] MEDS: INSULIN ASPART 100 UNITS/ML 3 ML PEN SC SCH ×2 (16:30→21:00)
[2018-03-30 18:35] LABS: PTT PATIENT 52.6 SECONDS (21.0-31.0)
[2018-03-30 20:01] VITALS: BP 133/75; PULSE 70; TEMP 36.6; O2SAT 95
[2018-03-30] MEDS: CEPHALEXIN MONOHYDRATE 500 MG CAP PO SCH (21:16)
[2018-03-30] MEDS: METOPROLOL TARTRATE 25 MG TAB PO SCH (21:18)
[2018-03-30 23:27] VITALS: BP 119/73; PULSE 68; TEMP 36.6; O2SAT 91
[2018-03-31] VITALS (7 sets, daily range): BP systolic 147–160; BP diastolic 75–90; PULSE 66–79; TEMP 36.2–36.7; O2SAT 91–95
[2018-03-31] MEDS: HYDROmorphone INJ 0.5 MG/0.5 ML SYR IV PRN ×4 (01:51→22:47)
[2018-03-31] MEDS: LEVOTHYROXINE 50 MCG TAB PO SCH (05:55)
[2018-03-31 06:24] LABS: BASO % 0.9 %; BASO ABS # 0.05 K/uL (0-0.2); EOS % 3.8 %; HEMATOCRIT 32.3 % (37-47); HEMOGLOBIN 10.5 g/dL (12.0-16.0); IG# 0.03 K/uL (0.00-0.02); LYMPH % 44.8 %; LYMPH ABS # 2.38 K/uL (1.2-3.4); MEAN CELL VOLUME 81.8 fL (80-100); MEAN CORPUSCULAR HEMOGLOBIN 26.6 pg (25-34); MEAN CORPUSCULAR HGB CONC 32.5 g/dl (32-36); MEAN PLATELET VOLUME 8.3 fL (7.4-10.4); MONO % 8.5 %; MONO ABS # 0.45 K/uL (0.11-0.59); NEUT % 41.4 %; PLATELET COUNT 286 K/uL (130-400); RED CELL DISTRIBUTION WIDTH CV 15.2 % (11.5-14.5); RED CELL DISTRIBUTION WIDTH SD 45.4 fL (36.4-46.3); WHITE BLOOD COUNT 5.31 K/uL (4.8-10.8)
[2018-03-31 06:59] LABS: ALBUMIN 2.3 gm/dl (3.4-5.0); CALCIUM 8.5 mg/dl (8.5-10.1); CREATININE 0.97 mg/dl (0.60-1.20); POTASSIUM 4.1 mmol/L (3.5-5.1)
[2018-03-31 07:00] LABS: PTT PATIENT 55.4 SECONDS (21.0-31.0)
[2018-03-31 07:02] LABS: TOTAL PROTEIN 6.2 gm/dl (6.4-8.2)
[2018-03-31] MEDS: INSULIN ASPART 100 UNITS/ML 3 ML PEN SC SCH ×4 (07:35→20:57)
[2018-03-31] MEDS: MAGNESIUM OXIDE 400 MG TAB PO SCH ×2 (08:25→20:56)
[2018-03-31] MEDS: ASPIRIN 81 MG ECTAB PO SCH (08:26)
[2018-03-31] MEDS: CEPHALEXIN MONOHYDRATE 500 MG CAP PO SCH ×2 (08:26→20:55)
[2018-03-31] MEDS: METOPROLOL TARTRATE 25 MG TAB PO SCH ×2 (08:26→20:56)
[2018-03-31] MEDS: PANTOprazole SOD 40 MG TAB PO SCH (08:26)
[2018-03-31] MEDS: AMIODARONE 200 MG TAB PO SCH ×2 (08:27→20:54)
[2018-03-31] MEDS: GABAPENTIN 100 MG CAP PO SCH ×2 (08:27→20:57)
[2018-03-31] MEDS: DULOXETINE HCL 60 MG CAP PO SCH (08:27)
[2018-03-31] MEDS: LOSARTAN POTASSIUM 25 MG TAB PO SCH (08:27)
--- NOTE | 2018-03-31 10:43 | Cardiology Follow-Up ---
Subjective General Date of Service: March 31, 2018. Chief Complaint: follow up atrial fibrillation ,fever Pt evaluation today including: conversation w/ patient, physical exam History of Present Illness The patient is a 78 year old female seen in follow up. Denies chest pain or shortness of breath. No fever overnight. Tolerating heparin. Telemetry reveals rate controlled atrial fibrillation. Allergies Coded Allergies: No Known Allergies (Unverified , 03/28/18) Social History Smoking Status: Never Smoker Hx Tobacco Use In Past Year?: No Hx Alcohol Use - Type And Amou: No Hx Substance Use - Type And Am: No Problem List Medical Problems: (1) Back pain Status: Acute (2) Cellulitis Status: Acute (3) Generalized weakness Status: Acute (4) Hypomagnesemia Status: Acute (5) Pancreatitis Status: Acute (6) Phlebitis of right arm Status: Acute (7) PICC line infection Status: Acute (8) Pleural effusion Status: Acute Physical Exam Vital Signs Last Vital Signs Documentation Date Time Temp Pulse Resp B/P (MAP) Pulse Ox O2 Delivery O2 Flow Rate FiO2 03/31/18 09:00 91 Room Air 03/31/18 07:21 36.4 68 16 155/87 (109) 03/30/18 12:00 2.0 Physical Exam Constitutional: Level of Distress: NAD Head: normocephalic Neck: supple Lungs: Auscultation: no wheezing, no rales/crackles, no rhonchi Cardiovascular: Heart Auscultation: no murmurs, no rubs, irregular rate rhythm Extremities: no edema Neurologic: Gait & Station: pertinent finding (no focal deficits ) Assessment and Plan Assessment and Plan Impression: 1. Paroxysmal perhaps now persistent atrial fibrillation, currently rate controlled atrial fibrillation 2. [id number] score of 4 for age over 75, female, with diabetes 3. Small bilateral pleural effusions 4. Concerns for underlying infection, history of chronic foot infection? if this is source of have additional source 5. Recent echo with RV enlargement, normal LV.-outside echo report 03/23/18 6. Elevated lipase, negative abdominal imaging Recommendations: Continue heparin, metoprolol, amiodarone. Blood cultures negative. Appears foot cellulitis is source of infection .TTE negative. Discussed option of proceeding with FARHEEN to exclude vegetation. Will make NPO after Midnight and revisit tomorrow. Attempted to reach daughter, Kandi , by phone to provide updates, but was not successful, I left a voicemail. Laboratory Results Last 24 Hours Test 03/30/18 11:04 03/30/18 11:12 03/30/18 11:18 03/30/18 16:35 Prothrombin Time 10.5 SECONDS Prothromb Time International Ratio 1.0 Activated Partial Thromboplast Time 37.8 SECONDS Partial Thromboplastin Ratio 1.5 White Blood Count 5.47 K/uL Red Blood Count 3.76 M/uL Hemoglobin 10.4 g/dL Hematocrit 31.1 % Mean Corpuscular Volume 82.7 fL Mean Corpuscular Hemoglobin 27.7 pg Mean Corpuscular Hemoglobin Concent 33.4 g/dl Platelet Count 272 K/uL Mean Platelet Volume 8.5 fL Neutrophils (%) (Auto) 59.4 % Lymphocytes (%) (Auto) 28.9 % Monocytes (%) (Auto) 8.0 % Eosinophils (%) (Auto) 2.7 % Basophils (%) (Auto) 0.5 % Neutrophils # (Auto) 3.24 K/uL Lymphocytes # (Auto) 1.58 K/uL Monocytes # (Auto) 0.44 K/uL Eosinophils # (Auto) 0.15 K/uL Basophils # (Auto) 0.03 K/uL RDW Standard Deviation 45.8 fL RDW Coefficient of Variation 15.4 % Immature Granulocyte % (Auto) 0.5 % Immature Granulocyte # (Auto) 0.03 K/uL Bedside Glucose 198 mg/dl 114 mg/dl Test 03/30/18 17:56 03/30/18 20:16 03/31/18 06:13 03/31/18 07:30 Activated Partial Thromboplast Time 52.6 SECONDS 55.4 SECONDS Partial Thromboplastin Ratio 2.0 2.1 Bedside Glucose 157 mg/dl 127 mg/dl White Blood Count 5.31 K/uL Red Blood Count 3.95 M/uL Hemoglobin 10.5 g/dL Hematocrit 32.3 % Mean Corpuscular Volume 81.8 fL Mean Corpuscular Hemoglobin 26.6 pg Mean Corpuscular Hemoglobin Concent 32.5 g/dl Platelet Count 286 K/uL Mean Platelet Volume 8.3 fL Neutrophils (%) (Auto) 41.4 % Lymphocytes (%) (Auto) 44.8 % Monocytes (%) (Auto) 8.5 % Eosinophils (%) (Auto) 3.8 % Basophils (%) (Auto) 0.9 % Neutrophils # (Auto) 2.20 K/uL Lymphocytes # (Auto) 2.38 K/uL Monocytes # (Auto) 0.45 K/uL Eosinophils # (Auto) 0.20 K/uL Basophils # (Auto) 0.05 K/uL RDW Standard Deviation 45.4 fL RDW Coefficient of Variation 15.2 % Immature Granulocyte % (Auto) 0.6 % Immature Granulocyte # (Auto) 0.03 K/uL Erythrocyte Sedimentation Rate 33 mm/hr Prothrombin Time 10.9 SECONDS Prothromb Time International Ratio 1.0 Sodium Level 141 mmol/L Potassium Level 4.1 mmol/L Chloride Level 108 mmol/L Carbon Dioxide Level 26 mmol/L Anion Gap 7.0 mmol/L Blood Urea Nitrogen 16 mg/dl Creatinine 0.97 mg/dl Est Creatinine Clear Calc Drug Dose 48.9 ml/min Estimated GFR () 65.3 Estimated GFR (Non- 56.3 BUN/Creatinine Ratio 16.9 Random Glucose 120 mg/dl Calcium Level 8.5 mg/dl Total Bilirubin 0.4 mg/dl Aspartate Amino Transf (AST/SGOT) 56 U/L Alanine Aminotransferase (ALT/SGPT) 68 U/L Alkaline Phosphatase 106 U/L Total Protein 6.2 gm/dl Albumin 2.3 gm/dl Globulin 3.9 gm/dl Albumin/Globulin Ratio 0.6
--- NOTE | 2018-03-31 12:43 | Gastroenterology Progress Note ---
Progress Note Date of Service: March 31, 2018 Subjective Pt evaluation today including: conversation w/ patient, physical exam, chart review, lab review, review of studies, review of inpatient medication list Ms. Dale is a 78 year old female who is admitted for cellulitis. GI is consulted for elevated lipase. She does not have symptoms of pancreatitis. RUQ US yesterday w/o gallstones, gallbladder wall thickening, biliary ductal dilation or choledocholithiasis. Review of Systems Constitutional: No fever Respiratory: No cough Cardiac: No chest pain Abdomen: No pain, No nausea, No vomiting, No diarrhea Female : No dysuria Neuro: No memory loss Psych: No depression symptoms Heme: No see HPI Endo: No fatigue Skin: No rash Medications Current Inpatient Medications Medications (Trade) Dose Ordered Sig/Shannon Route Start Time Stop Time Status Last Admin Dose Admin Ioversol (Optiray 320) 100 ml UD PRN IV 03/28/18 16:45 04/01/18 16:44 Acetaminophen (Tylenol Tab) 650 mg Q4H PRN PO 03/28/18 18:45 04/27/18 18:44 03/30/18 23:11 650 MG Al Hydrox/Mg Hydrox/Simethicone (Maalox Max Susp) 15 ml Q4H PRN PO 03/28/18 18:45 04/27/18 18:44 Magnesium Hydroxide (Milk Of Magnesia Susp) 30 ml Q12H PRN PO 03/28/18 18:45 04/27/18 18:44 Aspirin (Ecotrin Tab) 81 mg QAM PO 03/29/18 09:00 04/28/18 08:59 03/31/18 08:26 81 MG Amiodarone HCl (Cordarone Tab) 200 mg BID PO 03/28/18 21:00 04/27/18 20:59 03/31/18 08:27 200 MG Duloxetine HCl (Cymbalta Cap) 60 mg DAILY PO 03/29/18 09:00 04/28/18 08:59 03/31/18 08:27 60 MG Gabapentin (Neurontin Cap) 200 mg BID PO 03/28/18 21:00 04/27/18 20:59 03/31/18 08:27 200 MG Levothyroxine Sodium (Synthroid Tab) 50 mcg DAILYBB PO 03/29/18 06:30 04/28/18 06:29 03/31/18 05:55 50 MCG Magnesium Oxide (Mag-Ox Tab) 400 mg BID PO 03/28/18 21:00 04/27/18 20:59 03/31/18 08:25 400 MG Pantoprazole Sodium (Protonix Tab) 40 mg DAILY PO 03/29/18 09:00 04/28/18 08:59 03/31/18 08:26 40 MG Losartan Potassium (coZAAR TAB) 25 mg QAM PO 03/29/18 09:00 04/28/18 08:59 03/31/18 08:27 25 MG Hydromorphone HCl (Dilaudid Inj) 0.5 mg Q4 PRN IV 03/28/18 18:45 04/11/18 18:44 03/31/18 05:56 0.5 MG Metoprolol Tartrate (Lopressor Tab) 12.5 mg BID PO 03/30/18 21:00 04/29/18 20:59 03/31/18 08:26 12.5 MG Heparin Sodium/ Dextrose 500 ml @ 15 mls/hr Q24H IV 03/30/18 11:30 04/29/18 11:29 03/30/18 11:49 15 MLS/HR Cephalexin Monohydrate (Keflex Cap) 500 mg BID PO 03/30/18 21:00 04/09/18 20:59 03/31/18 08:26 500 MG Insulin Aspart (novoLOG ASPART) SLIDING SCALE G... ACHS SC 03/30/18 16:30 04/29/18 16:29 Glucose (Glucose 40% Gel) 15-30 GRAMS 15 GRAMS... UD PRN PO 03/30/18 16:15 04/29/18 16:14 Glucose (Glucose Chew Tab) 4-8 Tablets 4 Tabl... UD PRN PO 03/30/18 16:15 04/29/18 16:14 Dextrose (Dextrose 50% 50ML Syringe) 25-50ML 25ML FOR ... UD PRN IV 03/30/18 16:15 04/29/18 16:14 Glucagon (Glucagon Inj) 1 mg UD PRN SQ 03/30/18 16:15 04/29/18 16:14 Carbohydrates (Carbohydrates For Hypoglycemia) 15-30 GRAMS 15 grams if BSG 54-69... UD PRN PO 03/30/18 16:15 04/29/18 16:14 Objective Vital Signs Date Time Temp Pulse Resp B/P (MAP) Pulse Ox O2 Delivery O2 Flow Rate FiO2 03/31/18 11:25 36.7 79 16 160/77 (104) 92 Room Air 03/31/18 09:00 91 Room Air 03/31/18 07:21 36.4 68 16 155/87 (109) 91 Room Air 03/31/18 04:00 Room Air Nasal Cannula 03/31/18 03:35 36.5 69 18 155/86 (109) 92 Room Air 03/31/18 00:30 Room Air Nasal Cannula 03/30/18 23:27 36.6 68 17 119/73 (88) 91 Room Air Nasal Cannula 03/30/18 20:10 Room Air 03/30/18 20:01 36.6 70 20 133/75 (94) 95 03/30/18 16:00 Room Air 03/30/18 15:10 36.6 67 18 119/75 (90) 95 Physical Exam General Appearance: no apparent distress Neck: supple, thyroid normal, no JVD Respiratory/Chest: lungs clear Cardiovascular: regular rate, rhythm, no JVD, no murmur Abdomen: non tender, soft Neurologic/Psych: alert, normal mood/affect, oriented x 3 Skin: no jaundice Laboratory Results Last 24 Hours Test 03/30/18 16:35 03/30/18 17:56 03/30/18 20:16 03/31/18 06:13 Bedside Glucose 114 mg/dl 157 mg/dl Activated Partial Thromboplast Time 52.6 SECONDS 55.4 SECONDS Partial Thromboplastin Ratio 2.0 2.1 White Blood Count 5.31 K/uL Red Blood Count 3.95 M/uL Hemoglobin 10.5 g/dL Hematocrit 32.3 % Mean Corpuscular Volume 81.8 fL Mean Corpuscular Hemoglobin 26.6 pg Mean Corpuscular Hemoglobin Concent 32.5 g/dl Platelet Count 286 K/uL Mean Platelet Volume 8.3 fL Neutrophils (%) (Auto) 41.4 % Lymphocytes (%) (Auto) 44.8 % Monocytes (%) (Auto) 8.5 % Eosinophils (%) (Auto) 3.8 % Basophils (%) (Auto) 0.9 % Neutrophils # (Auto) 2.20 K/uL Lymphocytes # (Auto) 2.38 K/uL Monocytes # (Auto) 0.45 K/uL Eosinophils # (Auto) 0.20 K/uL Basophils # (Auto) 0.05 K/uL RDW Standard Deviation 45.4 fL RDW Coefficient of Variation 15.2 % Immature Granulocyte % (Auto) 0.6 % Immature Granulocyte # (Auto) 0.03 K/uL Erythrocyte Sedimentation Rate 33 mm/hr Prothrombin Time 10.9 SECONDS Prothromb Time International Ratio 1.0 Sodium Level 141 mmol/L Potassium Level 4.1 mmol/L Chloride Level 108 mmol/L Carbon Dioxide Level 26 mmol/L Anion Gap 7.0 mmol/L Blood Urea Nitrogen 16 mg/dl Creatinine 0.97 mg/dl Est Creatinine Clear Calc Drug Dose 48.9 ml/min Estimated GFR () 65.3 Estimated GFR (Non- 56.3 BUN/Creatinine Ratio 16.9 Random Glucose 120 mg/dl Calcium Level 8.5 mg/dl Total Bilirubin 0.4 mg/dl Aspartate Amino Transf (AST/SGOT) 56 U/L Alanine Aminotransferase (ALT/SGPT) 68 U/L Alkaline Phosphatase 106 U/L Total Protein 6.2 gm/dl Albumin 2.3 gm/dl Globulin 3.9 gm/dl Albumin/Globulin Ratio 0.6 Test 03/31/18 07:30 03/31/18 11:24 Bedside Glucose 127 mg/dl 170 mg/dl Assessment and Plan Ms. Dale is a 78 yr old female with elevated lipase w/o other signs/symptoms of pancreatitis. Plan: OP EUS in 6 weeks. GI will sign off.
--- NOTE | 2018-03-31 14:19 | Progress Note ---
Internal Med Progress Note Date of Service: March 31, 2018. Provider Documentation: SUBJECTIVE: Patient denies fevers. Denies chest pain or shortness of breath. She reports that she had discussed with cardiology service about possible FARHEEN tomorrow. She does not have other questions for hospitalist OBJECTIVE: Exam: General- no acute distress Eyes- EOMI Neck- no JVD Lungs- CTABL, no wheezing, breathing on room air Heart- irregular rhythm, rate controlled Abdomen- soft, nontender, + bowel sounds Extremities- no edema, bottom of left foot has a small ulcer without purulence or erythema Neuro- awake and alert ASSESSMENT & PLAN: This is a 78 year old female with a past medical history of diabetes, lumbago and neuropathic pain, HTN, hypothyroidism, Left foot cellulitis on long-term antibiotics, recent episode of atrial fibrillation - presents with chills, weakness, back pain, lack of appetite Infection workup -history of left foot cellulitis on chronic antibiotic therapy (was on outpatient cefadroxil, bottom of left foot has a small ulcer without purulence or erythema) admission WBC 11,000 on , blood cultures from 03/28/18 negative, WBC downtrending as patient had been empirically on Rocephin and Vancomycin empirically, Vancomycin stopped on 03/30/18 given negative blood cultures and to avoid renal toxicity, will also stop ceftriaxone on 03/30/15, will switch to oral Cephalexin as it is a first generation cephalosporin and cefadroxil is not available in formulary -wound care for left foot with small ulcer is adequate as wound is clean and dry and with dressing -initial differential included pancreatitis due to elevated lipase but no abdominal complaints and abdominal CT does not suggest pancreas inflammation, lipase downtrended after IV fluids, RUQ Ultrasound without abnormal biliary findings and gastroenterology service signed off and recommended outpatient EUS in 6 weeks Other fever workup Superficial Thrombophlebitis RUQ - No DVT within the right upper extremity. Nonocclusive superficial thrombus within the right cephalic vein at the antecubital fossa Lower extremity ultrasound: 1. There is no sonographic evidence of deep venous thrombosis identified in the right or left lower extremity. 2. Right-sided Chun 's cyst. - ESR is 33 which is somewhat elevated Paroxysmal atrial fibrillation ( [id number] score of 4 for age over 75, female, with diabetes), currently rate controlled atrial fibrillation -PO amiodarone, metoprolol tartrate 12.5 mg BID, heparin drip -Transthoracic Echocardiogram 03/30/18 * The left ventricle is normal in size. * There is mild concentric left ventricular hypertrophy. * Ejection Fraction = 50-55%. * The right ventricular systolic function is normal. * The left atrial size is normal. * Right atrial size is normal. * No significant valvular pathology. -Cardiology service planning for FARHEEN tomorrow to rule out vegetation vs endocarditis. On heparin drip, hold coumadin for now. NPO after Midnight for possible procedure tomorrow. Diabetes Mellitus, type 2 - hold home metformin - Ha1c = 7.1%, controlled -diabetic diet, insulin sliding scale Hypothyroidism - TSH within normal limits - continue Synthroid Lumbago Radiculopathy - Lumbar MRI: 1. No fractures identified within the lumbar spine. 2. Straightening of the lumbar spine. 3. Posterior decompression fusion at L3-L5. Small amount of ill-defined fluid/edema at the laminectomy sites is nonspecific but likely related to the postoperative change. 4. Multilevel degenerative changes as described above most pronounced at the L3-L4 level where there is mild central canal narrowing. - Thoracic MRI: normal - continue Cymbalta and Gabapentin for nerve pain - Dilaudid PRN for pain - no acute back pain complaints today DVT ppx - heparin drip only FULL CODE Vital Signs: Date Time Temp Pulse Resp B/P (MAP) Pulse Ox O2 Delivery O2 Flow Rate FiO2 03/31/18 12:00 92 Room Air 03/31/18 11:25 36.7 79 16 160/77 (104) 92 Room Air 03/31/18 09:00 91 Room Air 03/31/18 07:21 36.4 68 16 155/87 (109) 91 Room Air 03/31/18 04:00 Room Air Nasal Cannula 03/31/18 03:35 36.5 69 18 155/86 (109) 92 Room Air 03/31/18 00:30 Room Air Nasal Cannula 03/30/18 23:27 36.6 68 17 119/73 (88) 91 Room Air Nasal Cannula 03/30/18 20:10 Room Air 03/30/18 20:01 36.6 70 20 133/75 (94) 95 03/30/18 16:00 Room Air 03/30/18 15:10 36.6 67 18 119/75 (90) 95 Lab Results: Results Past 24 Hours Test 03/30/18 16:35 03/30/18 17:56 03/30/18 20:16 03/31/18 06:13 Range/Units Bedside Glucose 114 157 70-90 mg/dl Activated Partial Thromboplast Time 52.6 55.4 21.0-31.0 SECONDS Partial Thromboplastin Ratio 2.0 2.1 White Blood Count 5.31 4.8-10.8 K/uL Red Blood Count 3.95 4.2-5.4 M/uL Hemoglobin 10.5 12.0-16.0 g/dL Hematocrit 32.3 37-47 % Mean Corpuscular Volume 81.8 80-100 fL Mean Corpuscular Hemoglobin 26.6 25-34 pg Mean Corpuscular Hemoglobin Concent 32.5 32-36 g/dl Platelet Count 286 130-400 K/uL Mean Platelet Volume 8.3 7.4-10.4 fL Neutrophils (%) (Auto) 41.4 % Lymphocytes (%) (Auto) 44.8 % Monocytes (%) (Auto) 8.5 % Eosinophils (%) (Auto) 3.8 % Basophils (%) (Auto) 0.9 % Neutrophils # (Auto) 2.20 1.4-6.5 K/uL Lymphocytes # (Auto) 2.38 1.2-3.4 K/uL Monocytes # (Auto) 0.45 0.11-0.59 K/uL Eosinophils # (Auto) 0.20 0-0.5 K/uL Basophils # (Auto) 0.05 0-0.2 K/uL RDW Standard Deviation 45.4 36.4-46.3 fL RDW Coefficient of Variation 15.2 11.5-14.5 % Immature Granulocyte % (Auto) 0.6 % Immature Granulocyte # (Auto) 0.03 0.00-0.02 K/uL Erythrocyte Sedimentation Rate 33 0-21 mm/hr Prothrombin Time 10.9 9.0-12.0 SECONDS Prothromb Time International Ratio 1.0 0.9-1.1 Sodium Level 141 136-145 mmol/L Potassium Level 4.1 3.5-5.1 mmol/L Chloride Level 108 98-107 mmol/L Carbon Dioxide Level 26 21-32 mmol/L Anion Gap 7.0 3-11 mmol/L Blood Urea Nitrogen 16 7-18 mg/dl Creatinine 0.97 0.60-1.20 mg/dl Est Creatinine Clear Calc Drug Dose 48.9 ml/min Estimated GFR () 65.3 Estimated GFR (Non- 56.3 BUN/Creatinine Ratio 16.9 10-20 Random Glucose 120 70-99 mg/dl Calcium Level 8.5 8.5-10.1 mg/dl Total Bilirubin 0.4 0.2-1 mg/dl Aspartate Amino Transf (AST/SGOT) 56 15-37 U/L Alanine Aminotransferase (ALT/SGPT) 68 12-78 U/L Alkaline Phosphatase 106 45-117 U/L Total Protein 6.2 6.4-8.2 gm/dl Albumin 2.3 3.4-5.0 gm/dl Globulin 3.9 2.5-4.0 gm/dl Albumin/Globulin Ratio 0.6 0.9-2 Test 03/31/18 07:30 03/31/18 11:24 Range/Units Bedside Glucose 127 170 70-90 mg/dl
--- NOTE | 2018-03-31 14:22 | Progress Note ---
Subjective Date of Service: March 31, 2018. Subjective Pt evaluation today including: conversation w/ patient, physical exam, chart review, lab review pt seen in followup, doing well. no complaints with exception of discomfort in legs, denies pain. changed to po abx, tolerating well. denies abd pain, no n/v/ d. blood cultures remain negative, afebrile. wbc nml. all remaining ros reveiwed and are negative. Problem List Medical Problems: (1) Back pain Status: Acute (2) Cellulitis Status: Acute (3) Generalized weakness Status: Acute (4) Hypomagnesemia Status: Acute (5) Pancreatitis Status: Acute (6) Phlebitis of right arm Status: Acute (7) PICC line infection Status: Acute (8) Pleural effusion Status: Acute Objective Vital Signs Date Time Temp Pulse Resp B/P (MAP) Pulse Ox O2 Delivery O2 Flow Rate FiO2 03/31/18 12:00 92 Room Air 03/31/18 11:25 36.7 79 16 160/77 (104) 92 Room Air 03/31/18 09:00 91 Room Air 03/31/18 07:21 36.4 68 16 155/87 (109) 91 Room Air 03/31/18 04:00 Room Air Nasal Cannula 03/31/18 03:35 36.5 69 18 155/86 (109) 92 Room Air 03/31/18 00:30 Room Air Nasal Cannula 03/30/18 23:27 36.6 68 17 119/73 (88) 91 Room Air Nasal Cannula 03/30/18 20:10 Room Air 03/30/18 20:01 36.6 70 20 133/75 (94) 95 03/30/18 16:00 Room Air 03/30/18 15:10 36.6 67 18 119/75 (90) 95 Physical Exam General Appearance: WD/WN, no apparent distress Eyes: normal inspection, PERRL Neck: supple Respiratory/Chest: lungs clear Cardiovascular: regular rate, rhythm, no edema Abdomen: non tender, soft Extremities: non-tender, no pedal edema Neurologic/Psychiatric: alert, oriented x 3 Skin: normal color Laboratory Results Item Value Date Time Blood Culture - Preliminary Resulted 03/28/18 1642 Blood NO GROWTH TO DATE. Blood Culture - Preliminary Resulted 03/28/18 1656 Blood NO GROWTH TO DATE. Last 24 Hours Test 03/30/18 16:35 03/30/18 17:56 03/30/18 20:16 03/31/18 06:13 Bedside Glucose 114 mg/dl 157 mg/dl Activated Partial Thromboplast Time 52.6 SECONDS 55.4 SECONDS Partial Thromboplastin Ratio 2.0 2.1 White Blood Count 5.31 K/uL Red Blood Count 3.95 M/uL Hemoglobin 10.5 g/dL Hematocrit 32.3 % Mean Corpuscular Volume 81.8 fL Mean Corpuscular Hemoglobin 26.6 pg Mean Corpuscular Hemoglobin Concent 32.5 g/dl Platelet Count 286 K/uL Mean Platelet Volume 8.3 fL Neutrophils (%) (Auto) 41.4 % Lymphocytes (%) (Auto) 44.8 % Monocytes (%) (Auto) 8.5 % Eosinophils (%) (Auto) 3.8 % Basophils (%) (Auto) 0.9 % Neutrophils # (Auto) 2.20 K/uL Lymphocytes # (Auto) 2.38 K/uL Monocytes # (Auto) 0.45 K/uL Eosinophils # (Auto) 0.20 K/uL Basophils # (Auto) 0.05 K/uL RDW Standard Deviation 45.4 fL RDW Coefficient of Variation 15.2 % Immature Granulocyte % (Auto) 0.6 % Immature Granulocyte # (Auto) 0.03 K/uL Erythrocyte Sedimentation Rate 33 mm/hr Prothrombin Time 10.9 SECONDS Prothromb Time International Ratio 1.0 Sodium Level 141 mmol/L Potassium Level 4.1 mmol/L Chloride Level 108 mmol/L Carbon Dioxide Level 26 mmol/L Anion Gap 7.0 mmol/L Blood Urea Nitrogen 16 mg/dl Creatinine 0.97 mg/dl Est Creatinine Clear Calc Drug Dose 48.9 ml/min Estimated GFR () 65.3 Estimated GFR (Non- 56.3 BUN/Creatinine Ratio 16.9 Random Glucose 120 mg/dl Calcium Level 8.5 mg/dl Total Bilirubin 0.4 mg/dl Aspartate Amino Transf (AST/SGOT) 56 U/L Alanine Aminotransferase (ALT/SGPT) 68 U/L Alkaline Phosphatase 106 U/L Total Protein 6.2 gm/dl Albumin 2.3 gm/dl Globulin 3.9 gm/dl Albumin/Globulin Ratio 0.6 Test 03/31/18 07:30 5/16/18 11:24 Bedside Glucose 127 mg/dl 170 mg/dl Assessment and Plan (1) Foot infection Assessment & Plan: continue keflex as planned by pcp, no new ID recs. stable for d/c from ID standpoint.
[2018-03-31] MEDS ORDERED: WARFARIN SOD 5 MG TAB PO SCH (16:00)
[2018-03-31] MEDS: HEPARIN 25,000 UNIT/500ML D5W 500 ML IV SCH (19:36)
[2018-04-01] VITALS (15 sets, daily range): BP systolic 115–167; BP diastolic 56–91; PULSE 67–79; TEMP 36.3–36.6; O2SAT 90–96
[2018-04-01] MEDS: HYDROmorphone INJ 0.5 MG/0.5 ML SYR IV PRN (05:32)
[2018-04-01 06:29] LABS: PTT PATIENT 44.9 SECONDS (21.0-31.0)
[2018-04-01] MEDS: INSULIN ASPART 100 UNITS/ML 3 ML PEN SC SCH ×3 (06:30→16:30)
[2018-04-01] MEDS: LEVOTHYROXINE 50 MCG TAB PO SCH (06:41)
[2018-04-01] MEDS: HEPARIN 25,000 UNIT/500ML D5W 500 ML IV SCH (07:35)
[2018-04-01] MEDS ORDERED: HEPARIN IV BOLUS 3,000 UNIT in SYRINGE 0 ML IV ONE (07:45)
[2018-04-01] MEDS ORDERED: BENZOCAIN/TETRACA/BUTAM SPRAY 200 APPLN/20 GM SPRY ONE (07:48)
[2018-04-01] MEDS ORDERED: FENTANYL CITRATE INJ 50 MCG/1 ML 2 ML VIAL ONE (07:48)
[2018-04-01] MEDS ORDERED: MIDAZOLAM HCL 1 MG/ML 2ML VIAL ONE (07:49)
[2018-04-01] MEDS ORDERED: CANNULA ONE (07:49)
[2018-04-01] MEDS ORDERED: LIDOCAINE HCL 2% VISC SOLN 20 ML UDC ONE (07:49)
--- NOTE | 2018-04-01 08:17 | Pre Sedation Assessment ---
Pre Sedation Assessment General Date of Sedation: April 01, 2018. Vital Signs Past 12 Hours Date Time Temp Pulse Resp B/P (MAP) Pulse Ox O2 Delivery O2 Flow Rate FiO2 04/01/18 07:28 36.4 72 16 142/75 (97) 90 Room Air 04/01/18 05:46 36.3 74 16 157/77 (103) 90 Room Air 04/01/18 04:00 Room Air Nasal Cannula 04/01/18 00:03 36.5 73 20 129/76 (93) 91 Room Air 04/01/18 00:00 Room Air Nasal Cannula 03/31/18 20:33 36.2 74 18 147/75 (99) 94 Room Air 03/31/18 20:00 Room Air Review Cardiovascular: + irregularly irregular Lungs: lungs clear, normal breath sounds Pre-Sedation Airway Assessment Smoking Status: Never Smoker Hx of Sleep Apnea: No Hx of difficult intubation: No Short Thick Neck: No Thyro-mental Distance: > 3 Finger Breadths Oral Cavity: WNL Mallampati Classification: Class II ASA Classification: Class III NPO Status Date of Last Intake of Fluids: April 01, 2018 Time of Last Intake of Fluids: 06:00 Date of Last Intake of Solids: March 31, 2018 Time of Last Intake of Solids: 23:59 Reason NPO < guidelines Patient within NPO guidelines, had one pill with sip of water 2 hours ago, otherwise NPO since prior to midnight last night. Procedure Planning Contraindications for Sedation: None Current Medications Reviewed: Yes Notes The planned sedation has been discussed with the patient. Informed Consent was obtained. I have identified the patient, determined the appropriateness of sedation and have assessed the patient immediately prior to the procedure. All medicine(s) and interventions are by my order.
--- NOTE | 2018-04-01 09:06 | Post Sedation Assessment ---
Post Sedation Assessment General Date of Sedation April 01, 2018. Vital Signs: Vital Signs Past 12 Hours Date Time Temp Pulse Resp B/P (MAP) Pulse Ox O2 Delivery O2 Flow Rate FiO2 04/01/18 08:11 70 12 173/99 (123) 93 Room Air 04/01/18 08:00 Room Air 04/01/18 07:28 36.4 72 16 142/75 (97) 90 Room Air 04/01/18 05:46 36.3 74 16 157/77 (103) 90 Room Air 04/01/18 04:00 Room Air Nasal Cannula 04/01/18 00:03 36.5 73 20 129/76 (93) 91 Room Air 04/01/18 00:00 Room Air Nasal Cannula Post Procedure Recovery Score Activity: (2) Moves 4 extremities * Respiration: (2) Deep breath/cough Circulation: (2) +/-20% PreAnes Value Consciousness: (1) Arouseable (by name) Oxygen Saturation: (2) > 92% On Room Air Discharge Sedation Level of Care: Phase I Post Sedation Plan On clinical assessment, the patient appears to have tolerated the sedation without complications. Patient is recovering as anticipated. Patient will continue to be monitored by nursing and may be discharged when sedation discharge criteria are met per below protocol. Upon Completions of procedure and additional 15 minutes continue every 5 minute vital signs and the P.A.R. score; then discharge to a Phase I or Fast Track to Phase II per the following guidelines: * Discharge Patient to appropriate Phase II area if PAR is 8 or greater or return to pre- procedure baseline. The post - procedure orders will be as directed. * If PAR score is less than 8 or not return to pre-procedure baseline then patient will follow Phase I monitoring till PAR is reached for Phase II. The Phase I may be done in procedure room or may call to secure a Phase I area. * If naloxone or flumazenil are used for reversal, hold in Phase I for an additional 60 -120 minutes before discharge to Phase II. Please call the Sedation Physician to re-evaluate and complete post-note for discharge to Phase II area. Do NOT discharge from procedure sedation or Phase 1 until post- sedation evaluation note is complete by procedure /sedation MD Sedation Discharge Instructions to be given to the patient at discharge to home.
--- NOTE | 2018-04-01 09:12 | [facility] Post Operative Brief Note ---
Immediate Operative Summary Operative Date April 01, 2018. Pre-Operative Diagnosis Rule out endocartitis Post-Operative Diagnosis No vegetation. No left atrial or left atrial appendate thrombus. Procedure(s) Performed FARHEEN, concious sedation Pateint received 1 mg IV versed, and 50 mcg fentanyl for sedation Surgeon Nirmal Sauer DO [employer] Mechanic Supervisor Surgeon(s) Rochelle Khan RN Estimated Blood Loss none Findings Consistent with Post-Op Diagnosis Specimens none Anesthesia Type Other (Concious sedation) Complication(s) none Disposition Disposition: [address] [place] [address] Procedure I was present for: the entire procedure. I was immediately available: during the entire case
--- NOTE | 2018-04-01 09:19 | Cardiology Follow-Up ---
Subjective General Date of Service: April 01, 2018. Chief Complaint: follow up atrial fibrillation ,fever Pt evaluation today including: conversation w/ patient, conversation w/ family , physical exam History of Present Illness The patient is a 78 year old female seen in follow up prior to , during , and post FARHEEN. Patient felt well overnight. Rate controlled atrial fibrillation at 70 bpm was present. Allergies Coded Allergies: No Known Allergies (Unverified , 03/28/18) Social History Smoking Status: Never Smoker Hx Tobacco Use In Past Year?: No Hx Alcohol Use - Type And Amou: No Hx Substance Use - Type And Am: No Problem List Medical Problems: (1) Back pain Status: Acute (2) Cellulitis Status: Acute (3) Generalized weakness Status: Acute (4) Hypomagnesemia Status: Acute (5) Pancreatitis Status: Acute (6) Phlebitis of right arm Status: Acute (7) PICC line infection Status: Acute (8) Pleural effusion Status: Acute Physical Exam Vital Signs Last Vital Signs Documentation Date Time Temp Pulse Resp B/P (MAP) Pulse Ox O2 Delivery O2 Flow Rate FiO2 04/01/18 08:11 70 12 173/99 (123) 93 Room Air 04/01/18 07:28 36.4 03/30/18 12:00 2.0 Physical Exam Constitutional: Level of Distress: NAD Head: normocephalic Neck: supple Lungs: Auscultation: no wheezing, no rales/crackles, no rhonchi Cardiovascular: Heart Auscultation: no murmurs, no rubs, irregular rate rhythm Extremities: no edema Neurologic: Gait & Station: pertinent finding (no focal deficits ) Assessment and Plan Assessment and Plan FARHEEN performed today 04/01/18: No evidnece of valvular vegetation. No LA or SERA thrombus. Impression: 1. Paroxysmal perhaps now persistent atrial fibrillation, currently rate controlled atrial fibrillation 2. [id number] score of 4 for age over 75, female, with diabetes 3. Small bilateral pleural effusions 4. Foot cellulitis, no evidence of endocarditis on FARHEEN, blood cultures negative 5. Mild to moderate right atrial enlargement, normal RV chamber size and systolic function, normal LV wall motion and LVEF 6. Elevated lipase, negative abdominal imaging Recommendations: Continue heparin, metoprolol, amiodarone. Bridge heparin to coumadin. Cardioversion no performed as patient seemingly asymptomatic from an AF standpoint. Spoke to daughter, Kandi , by phone prior to and after FARHEEN today and provided updates. Laboratory Results Last 24 Hours Test 03/31/18 11:24 03/31/18 16:17 03/31/18 20:55 04/01/18 05:35 Bedside Glucose 170 mg/dl 170 mg/dl 120 mg/dl Prothrombin Time 11.0 SECONDS Prothromb Time International Ratio 1.0 Activated Partial Thromboplast Time 44.9 SECONDS Partial Thromboplastin Ratio 1.7 Test 04/01/18 07:47 Bedside Glucose 125 mg/dl
[2018-04-01] MEDS: MAGNESIUM OXIDE 400 MG TAB PO SCH (10:23)
[2018-04-01] MEDS: ASPIRIN 81 MG ECTAB PO SCH (10:23)
[2018-04-01] MEDS: PANTOprazole SOD 40 MG TAB PO SCH (10:23)
[2018-04-01] MEDS: CEPHALEXIN MONOHYDRATE 500 MG CAP PO SCH (10:23)
[2018-04-01] MEDS: GABAPENTIN 100 MG CAP PO SCH (10:23)
[2018-04-01] MEDS: AMIODARONE 200 MG TAB PO SCH (10:24)
[2018-04-01] MEDS: LOSARTAN POTASSIUM 25 MG TAB PO SCH (10:24)
[2018-04-01] MEDS: DULOXETINE HCL 60 MG CAP PO SCH (10:24)
[2018-04-01] MEDS: METOPROLOL TARTRATE 25 MG TAB PO SCH (10:24)
--- NOTE | 2018-04-01 10:51 | TEE ---
*NOTICE TO RECEIVING [employer] This information is strictly Confidential and protected under [place] law. [place] law prohibits you from making any further disclosure of this information unless further disclosure is expressly permitted by the written consent of the person to whom it pertains or is authorized by law. A general authorization for the release of medical or other information is not sufficient for this purpose. Hospital accepts no responsibility if the information is made available to any other person, INCLUDING THE PATIENT. Interpretation Summary * Name: BROWN DONIS Study Date: 04/01/2018 08:11 AM BP: 148/80 mmHg * Patient Location: [facility]\S\N289\S\2 HR: 75 * : 1940 (M/d/yyyy) Gender: Female Height: 64 in * Age: 78 yrs Ethnicity: CA Weight: 170 lb * Ordering Physician: Ray Sauer * Referring Physician: Self, Referred * Performed By: Lashanda Diaz RDCS * * Reason For Study: Endocarditis, Atrial Fibrillation * BSA: 1.8 m2 * -- Conclusions -- * There is no evidence of endocarditis. * No left atrial mass or thrombus visualized. * No thrombus is detected in the left atrial appendage. * The patient was in a rate controlled atrial fibrillation at the time of the study. Procedure Details * The transesophageal portion of this study was personally supervised by the undersigned interpreting physician. * FARHEEN Probe #2 utilized for procedure. * The study was performed in Cardiopulmonary Department. * Time out was conducted by the physician, nurse, and analytical technician with positive identification of patient and procedure. * Informed consent for Transesophageal Echocardiogram was obtained prior to the procedure. * An intravenous line was placed. A topical anesthetic agent was used for oropharangeal anesthesia. A bite block was inserted. * The patient's vital signs, including blood pressure, heart rate, pulse oximetry and cardiac rhythm were monitored throughout the procedure . * Fentanyl 50 mcg was administered for procedural sedation. * Midazolam 1 mg administered for sedation. * The posterior oropharynx was anesthetized using a topical anesthetic spray. A bite guard was inserted. * A multifrequency, multiplane transesopheageal echocardiographic endoscope was inserted and manipulated in the standard fashion to achieve multiplane views. * The transesophageal probe was passed without difficulty. * The usual views were obtained; basal, mid-esophageal, transgastric and aortic views. * The patient tolerated the procedure well without evidence of orophangeal or esophageal trauma. * A 2D transesophageal echocardiogram with spectral and color flow Doppler was performed. * Contrast injection with agitated saline was performed. * Start time: 8:28 am. End time: 9:01 am. * A 2D transesophageal echocardiogram with Doppler and color flow Doppler was performed. Left Ventricle * The left ventricle is normal in size. * There is normal left ventricular wall thickness. * Left ventricular systolic function is normal. * Ejection Fraction = 55-60%. * The left ventricular wall motion is normal. Right Ventricle * The right ventricle is normal in size and function. Atria * The left atrial size is normal. * No left atrial mass or thrombus visualized. * No thrombus is detected in the left atrial appendage. * The right atrium is mild to moderately dilated. * The interatrial septum is intact with no evidence for an atrial septal defect. Mitral Valve * There is an area of mild focal calcification affecting the posterior mitral valve annulus and posterior mitral valve leaflet with calcification of the sub-valvular apparatus. This appears consistent with senile calcification rather than vegetation. * There is no mitral valve prolapse present. * There is no vegetation seen on the mitral valve. * There is no mitral valve stenosis. * There is mild mitral regurgitation. Tricuspid Valve * The tricuspid valve is normal. * There is no tricuspid valve vegetation. * There is no tricuspid stenosis. * There is mild tricuspid regurgitation. Aortic Valve * The aortic valve is trileaflet. * There is no aortic valvular vegetation. * No hemodynamically significant valvular aortic stenosis. * No aortic regurgitation is present. Pulmonic Valve * The pulmonic valve is not well seen, but is grossly normal. * Mild pulmonic valvular regurgitation. Great Vessels * The aortic root is normal size. * Mild non-mobile atheromatous plaque was observed in the visualized portion of the descending thoracic aorta or aortic arch or proximal descending aorta. Pericardium * There is a trivial loculated posterior pericardial effusion. There is no evidence of tamponade.
--- NOTE | 2018-04-01 11:31 | Cardiology Progress Note ---
Cardiology Progress Note Date of Service April 01, 2018. Cardiology Progress Note I placed order to request help from discharge planning to help determine out of pocket cost for Eliquis 5 mg by mouth two times per day. If too expensive, will need to coordinate transitioning management of warfarin to PCP as patient lives two hours away.
[2018-04-01] MEDS ORDERED: POLYETHYLENE (MIRALAX) 17 GM PACK PO PRN (12:30)
[2018-04-01] MEDS ORDERED: CZR25 PO (16:23)
[2018-04-01] MEDS ORDERED: LPR25 PO (16:23)
[2018-04-01] MEDS ORDERED: ELQ25 PO (16:23)
[2018-04-01] MEDS ORDERED: APIXABAN 2.5 MG TAB PO ONE (16:30)
--- NOTE | 2018-04-01 17:31 | Progress Note ---
Internal Med Progress Note Date of Service: April 01, 2018. Provider Documentation: SUBJECTIVE: Patient s/p FARHEEN. Patient denies pain or shortness of breath OBJECTIVE: Exam: General- no acute distress Eyes- EOMI Neck- no JVD Lungs- CTABL, no wheezing, breathing on room air Heart- irregular rhythm, rate controlled Abdomen- soft, nontender, + bowel sounds Extremities- no edema, bottom of left foot has a small ulcer without purulence or erythema Neuro- awake and alert ASSESSMENT & PLAN: This is a 78 year old female with a past medical history of diabetes, lumbago and neuropathic pain, HTN, hypothyroidism, Left foot cellulitis on long-term antibiotics, recent episode of atrial fibrillation - presents with chills, weakness, back pain, lack of appetite Infection workup -initial differential included pancreatitis due to elevated lipase but no abdominal complaints and abdominal CT does not suggest pancreas inflammation, lipase downtrended after IV fluids, RUQ Ultrasound without abnormal biliary findings and gastroenterology service signed off and recommended outpatient EUS in 6 weeks -history of left foot cellulitis on chronic antibiotic therapy (was on outpatient cefadroxil, bottom of left foot has a small ulcer without purulence or erythema) admission WBC 11,000 on , blood cultures from 03/28/18 negative, WBC downtrending as patient had been empirically on Rocephin and Vancomycin empirically, Vancomycin stopped on 03/30/18 given negative blood cultures and to avoid renal toxicity, stopped ceftriaxone on 03/30/15, switched to oral Cephalexin as it is a first generation cephalosporin and cefadroxil is not available in formulary -Patient can be discharged and complete her previous outpatient cefadroxil Other fever workup Superficial Thrombophlebitis RUQ - No DVT within the right upper extremity. Nonocclusive superficial thrombus within the right cephalic vein at the antecubital fossa Lower extremity ultrasound: 1. There is no sonographic evidence of deep venous thrombosis identified in the right or left lower extremity. 2. Right-sided Chun 's cyst. - ESR is 33 which is somewhat elevated Paroxysmal atrial fibrillation ( [id number] score of 4 for age over 75, female, with diabetes), currently rate controlled atrial fibrillation -PO amiodarone, metoprolol tartrate 12.5 mg BID, heparin drip was given during the hospital stay but patient is discharged with prescription for Eliquis as 5 mg BID and Eliquis ordered on discharge stay -Transthoracic Echocardiogram 03/30/18 * The left ventricle is normal in size. * There is mild concentric left ventricular hypertrophy. * Ejection Fraction = 50-55%. * The right ventricular systolic function is normal. * The left atrial size is normal. * Right atrial size is normal. * No significant valvular pathology. -Cardiology service performed FARHEEN on 04/01/18 and no vegetations or endocarditics identified Left Ventricle * The left ventricle is normal in size. * There is normal left ventricular wall thickness. * Left ventricular systolic function is normal. * Ejection Fraction = 55-60%. * The left ventricular wall motion is normal. Right Ventricle * The right ventricle is normal in size and function. Atria * The left atrial size is normal. * No left atrial mass or thrombus visualized. * No thrombus is detected in the left atrial appendage. * The right atrium is mild to moderately dilated. * The interatrial septum is intact with no evidence for an atrial septal defect. Mitral Valve * There is an area of mild focal calcification affecting the posterior mitral valve annulus and posterior mitral valve leaflet with calcification of the sub- valvular apparatus. This appears consistent with senile calcification rather than vegetation. * There is no mitral valve prolapse present. * There is no vegetation seen on the mitral valve. * There is no mitral valve stenosis. * There is mild mitral regurgitation. Tricuspid Valve * The tricuspid valve is normal. * There is no tricuspid valve vegetation. * There is no tricuspid stenosis. * There is mild tricuspid regurgitation. Aortic Valve * The aortic valve is trileaflet. * There is no aortic valvular vegetation. * No hemodynamically significant valvular aortic stenosis. * No aortic regurgitation is present. Pulmonic Valve * The pulmonic valve is not well seen, but is grossly normal. * Mild pulmonic valvular regurgitation. Great Vessels * The aortic root is normal size. * Mild non-mobile atheromatous plaque was observed in the visualized portion of the descending thoracic aorta or aortic arch or proximal descending aorta. Pericardium * There is a trivial loculated posterior pericardial effusion. There is no evidence of tamponade. Diabetes Mellitus, type 2 -continue home regimen on discharge Hypothyroidism - TSH within normal limits - continue home dosed Synthroid Lumbago Radiculopathy - Lumbar MRI: 1. No fractures identified within the lumbar spine. 2. Straightening of the lumbar spine. 3. Posterior decompression fusion at L3-L5. Small amount of ill-defined fluid/edema at the laminectomy sites is nonspecific but likely related to the postoperative change. 4. Multilevel degenerative changes as described above most pronounced at the L3-L4 level where there is mild central canal narrowing. - Thoracic MRI: normal - continue home dosed Cymbalta and Gabapentin for nerve pain Discharge Instructions Discharge to home Patient should complete outpatient cefadroxil Patient should take Eliquis 5 mg BID for the atrial fibrillation Gastroenterology service evaluated the patient for elevated lipase and recommended outpatient EUS in 6 weeks Patient should follow up with primary medical doctor Vital Signs: Date Time Temp Pulse Resp B/P (MAP) Pulse Ox O2 Delivery O2 Flow Rate FiO2 04/01/18 16:04 36.4 72 16 160/84 (109) 90 Room Air 04/01/18 16:00 Room Air 04/01/18 15:39 36.5 69 16 92 Room Air 04/01/18 12:00 Room Air 04/01/18 11:52 36.5 69 16 125/76 (92) 92 Room Air 04/01/18 11:13 36.6 76 18 167/91 (116) 90 04/01/18 10:30 36.4 75 18 157/83 (107) 91 Room Air 04/01/18 09:54 67 12 143/70 (94) 92 Room Air 04/01/18 09:43 68 15 125/81 (96) 91 Room Air 04/01/18 09:33 68 15 137/75 (95) 91 Room Air 04/01/18 09:23 70 14 136/68 (90) 92 Room Air 04/01/18 09:13 67 16 136/68 (90) 94 Nasal Cannula 2 04/01/18 09:03 70 10 125/72 (89) 91 Nasal Cannula 2 04/01/18 09:01 2 04/01/18 09:00 67 13 126/73 92 2 04/01/18 08:55 69 13 115/79 92 2 04/01/18 08:50 69 14 131/68 92 2 04/01/18 08:45 68 15 116/56 92 2 04/01/18 08:40 69 12 119/68 92 2 04/01/18 08:35 73 14 139/79 93 2 04/01/18 08:33 2 5/17/18 08:30 70 21 145/73 93 2 04/01/18 08:28 79 19 148/80 96 2 04/01/18 08:11 70 12 173/99 (123) 93 Room Air 04/01/18 08:00 Room Air 04/01/18 07:28 36.4 72 16 142/75 (97) 90 Room Air 04/01/18 05:46 36.3 74 16 157/77 (103) 90 Room Air 04/01/18 04:00 Room Air Nasal Cannula 04/01/18 00:03 36.5 73 20 129/76 (93) 91 Room Air 04/01/18 00:00 Room Air Nasal Cannula 03/31/18 20:33 36.2 74 18 147/75 (99) 94 Room Air 03/31/18 20:00 Room Air Lab Results: Results Past 24 Hours Test 03/31/18 20:55 04/01/18 05:35 04/01/18 07:47 04/01/18 11:28 Range/Units Bedside Glucose 120 125 164 70-90 mg/dl Prothrombin Time 11.0 9.0-12.0 SECONDS Prothromb Time International Ratio 1.0 0.9-1.1 Activated Partial Thromboplast Time 44.9 21.0-31.0 SECONDS Partial Thromboplastin Ratio 1.7 Test 04/01/18 16:21 Range/Units Bedside Glucose 115 70-90 mg/dl
--- NOTE | 2018-04-01 17:34 | Discharge Instructions ---
Discharge Instructions Date of Service April 01, 2018. Admission Reason for Admission: Chills With Fever; Pancreatitis Discharge Discharge Diagnosis / Problem: fever, left foot cellulitis /foot ulcer, atrial fibrillation, lipase high Discharge Goals Goal(s): Improve disease control Activity Recommendations Activity Limitations: per Instructions/Follow-up section . Instructions / Follow-Up Instructions / Follow-Up This is a 78 year old female with a past medical history of diabetes, lumbago and neuropathic pain, HTN, hypothyroidism, Left foot cellulitis on long-term antibiotics, recent episode of atrial fibrillation - presents with chills, weakness, back pain, lack of appetite Infection workup -initial differential included pancreatitis due to elevated lipase but no abdominal complaints and abdominal CT does not suggest pancreas inflammation, lipase downtrended after IV fluids, RUQ Ultrasound without abnormal biliary findings and gastroenterology service signed off and recommended outpatient EUS in 6 weeks -history of left foot cellulitis on chronic antibiotic therapy (was on outpatient cefadroxil, bottom of left foot has a small ulcer without purulence or erythema) admission WBC 11,000 on , blood cultures from 03/28/18 negative, WBC downtrending as patient had been empirically on Rocephin and Vancomycin empirically, Vancomycin stopped on 03/30/18 given negative blood cultures and to avoid renal toxicity, stopped ceftriaxone on 03/30/15, switched to oral Cephalexin as it is a first generation cephalosporin and cefadroxil is not available in formulary -Patient can be discharged and complete her previous outpatient cefadroxil Other fever workup Superficial Thrombophlebitis RUQ - No DVT within the right upper extremity. Nonocclusive superficial thrombus within the right cephalic vein at the antecubital fossa Lower extremity ultrasound: 1. There is no sonographic evidence of deep venous thrombosis identified in the right or left lower extremity. 2. Right-sided Chun 's cyst. - ESR is 33 which is somewhat elevated Paroxysmal atrial fibrillation ( [id number] score of 4 for age over 75, female, with diabetes), currently rate controlled atrial fibrillation -PO amiodarone, metoprolol tartrate 12.5 mg BID, heparin drip was given during the hospital stay but patient is discharged with prescription for Eliquis as 5 mg BID and Eliquis ordered on discharge stay -Transthoracic Echocardiogram 03/30/18 * The left ventricle is normal in size. * There is mild concentric left ventricular hypertrophy. * Ejection Fraction = 50-55%. * The right ventricular systolic function is normal. * The left atrial size is normal. * Right atrial size is normal. * No significant valvular pathology. -Cardiology service performed FARHEEN on 04/01/18 and no vegetations or endocarditics identified Left Ventricle The left ventricle is normal in size. There is normal left ventricular wall thickness. Left ventricular systolic function is normal. Ejection Fraction = 55-60%. The left ventricular wall motion is normal. Right Ventricle The right ventricle is normal in size and function. Atria The left atrial size is normal. No left atrial mass or thrombus visualized. No thrombus is detected in the left atrial appendage. The right atrium is mild to moderately dilated. The interatrial septum is intact with no evidence for an atrial septal defect. Mitral Valve There is an area of mild focal calcification affecting the posterior mitral valve annulus and posterior mitral valve leaflet with calcification of the sub- valvular apparatus. This appears consistent with senile calcification rather than vegetation. There is no mitral valve prolapse present. There is no vegetation seen on the mitral valve. There is no mitral valve stenosis. There is mild mitral regurgitation. Tricuspid Valve The tricuspid valve is normal. There is no tricuspid valve vegetation. There is no tricuspid stenosis. There is mild tricuspid regurgitation. Aortic Valve The aortic valve is trileaflet. There is no aortic valvular vegetation. No hemodynamically significant valvular aortic stenosis. No aortic regurgitation is present. Pulmonic Valve The pulmonic valve is not well seen, but is grossly normal. Mild pulmonic valvular regurgitation. Great Vessels The aortic root is normal size. Mild non-mobile atheromatous plaque was observed in the visualized portion of the descending thoracic aorta or aortic arch or proximal descending aorta. Pericardium There is a trivial loculated posterior pericardial effusion. There is no evidence of tamponade. Diabetes Mellitus, type 2 -continue home regimen on discharge Hypothyroidism - TSH within normal limits - continue home dosed Synthroid Lumbago Radiculopathy - Lumbar MRI: 1. No fractures identified within the lumbar spine. 2. Straightening of the lumbar spine. 3. Posterior decompression fusion at L3-L5. Small amount of ill-defined fluid/edema at the laminectomy sites is nonspecific but likely related to the postoperative change. 4. Multilevel degenerative changes as described above most pronounced at the L3-L4 level where there is mild central canal narrowing. - Thoracic MRI: normal - continue home dosed Cymbalta and Gabapentin for nerve pain Discharge Instructions Discharge to home Patient should complete outpatient cefadroxil Patient should take Eliquis 5 mg BID for the atrial fibrillation Gastroenterology service evaluated the patient for elevated lipase and recommended outpatient EUS in 6 weeks Patient should follow up with primary medical doctor Current Hospital Diet Patient's current hospital diet: Diabetes Type 2 Diet Discharge Diet Recommended Diet: Diabetes Type 2 Diet Procedures Procedures Performed: FARHEEN, concious sedation Pateint received 1 mg IV versed, and 50 mcg fentanyl for sedation Pending Studies Studies pending at discharge: no Laboratory Results 03/31/18 06:13 Red Blood Count 3.95, Mean Corpuscular Volume 81.8, Mean Corpuscular Hemoglobin 26.6, Mean Corpuscular Hemoglobin Concent 32.5, Mean Platelet Volume 8.3, Neutrophils (%) (Auto) 41.4, Lymphocytes (%) (Auto) 44.8, Monocytes (%) (Auto) 8.5, Eosinophils (%) (Auto) 3.8, Basophils (%) (Auto) 0.9, Neutrophils # (Auto) 2.20, Lymphocytes # (Auto) 2.38, Monocytes # (Auto) 0.45, Eosinophils # (Auto) 0.20, Basophils # (Auto) 0.05 03/31/18 06:13 Test 03/28/18 16:42 03/28/18 16:47 03/28/18 16:51 03/28/18 18:08 Direct Bilirubin 0.4 mg/dl (0-0.2) Total Creatine Kinase 208 U/L (26-192) Creatine Kinase MB 4.6 ng/ml (0.5-3.6) Creatine Kinase MB Ratio 2.2 (0-3.0) Troponin I 0.035 ng/ml (0-0.045) C-Reactive Protein 15.10 mg/dl (0-0.29) Procalcitonin 0.59 ng/ml (0-0.5) Bedside Hemoglobin 12.9 g/dl (12.0-16.0) Bedside Hematocrit 38 % (37-47) Bedside Sodium 135 mEq/L (135-144) Bedside Potassium 3.9 mEq/L (3.3-5.0) Bedside Chloride 97 mEq/L (101-112) Bedside Total CO2 26 mEq/l (24-31) Bedside Blood Urea Nitrogen 21 mg/dl (7-18) Bedside Creatinine 1.2 mg/dl (0.6-1.3) Bedside Glucose (other) 104 mg/dl (70-99) Bedside Ionized Calcium (Maximino) 1.16 mmol/l (1.12-1.32) Bedside Lactic Acid Venous 1.94 mmol/L (0.90-1.70) Urine Color YELLOW Urine Appearance CLEAR (CLEAR) Urine pH 7.0 (4.5-7.5) Urine Specific Aragon 1.015 (1.000-1.030) Urine Protein NEG (NEG) Urine Glucose (UA) NEG (NEG) Urine Ketones NEG (NEG) Urine Occult Blood NEG (NEG) Urine Nitrite NEG (NEG) Urine Bilirubin NEG (NEG) Urine Urobilinogen NEG (NEG) Urine Leukocyte Esterase NEG (NEG) Urine WBC (Auto) 1-5 /hpf (0-5) Urine RBC (Auto) 0-4 /hpf (0-4) Urine Hyaline Casts (Auto) 1-5 /lpf (0-5) Urine Epithelial Cells (Auto) 10-20 /lpf (0-5) Urine Bacteria (Auto) NEG (NEG) Test 03/29/18 05:09 03/30/18 05:40 03/31/18 06:13 04/01/18 05:35 Estimated Average Glucose 157 mg/dl Hemoglobin A1c 7.1 % (4.5-5.6) Phosphorus Level 3.8 mg/dl (2.5-4.9) Triglycerides Level 119 mg/dl (0-150) Cholesterol Level 107 mg/dl (0-200) HDL Cholesterol 28 mg/dl LDL Cholesterol, Calculated 55 mg/dl VLDL Cholesterol, Calculated 24 mg/dl Cholesterol/HDL Ratio 3.8 Thyroid Stimulating Hormone (TSH) 3.170 uIu/ml (0.300-4.500) Lactic Acid Level 0.9 mmol/L (0.4-2.0) Magnesium Level 1.9 mg/dl (1.8-2.4) Lipase 3399 U/L (73-393) White Blood Count 5.31 K/uL (4.8-10.8) Red Blood Count 3.95 M/uL (4.2-5.4) Hemoglobin 10.5 g/dL (12.0-16.0) Hematocrit 32.3 % (37-47) Mean Corpuscular Volume 81.8 fL (80-100) Mean Corpuscular Hemoglobin 26.6 pg (25-34) Mean Corpuscular Hemoglobin Concent 32.5 g/dl (32-36) Platelet Count 286 K/uL (130-400) Mean Platelet Volume 8.3 fL (7.4-10.4) Neutrophils (%) (Auto) 41.4 % Lymphocytes (%) (Auto) 44.8 % Monocytes (%) (Auto) 8.5 % Eosinophils (%) (Auto) 3.8 % Basophils (%) (Auto) 0.9 % Neutrophils # (Auto) 2.20 K/uL (1.4-6.5) Lymphocytes # (Auto) 2.38 K/uL (1.2-3.4) Monocytes # (Auto) 0.45 K/uL (0.11-0.59) Eosinophils # (Auto) 0.20 K/uL (0-0.5) Basophils # (Auto) 0.05 K/uL (0-0.2) RDW Standard Deviation 45.4 fL (36.4-46.3) RDW Coefficient of Variation 15.2 % (11.5-14.5) Immature Granulocyte % (Auto) 0.6 % Immature Granulocyte # (Auto) 0.03 K/uL (0.00-0.02) Erythrocyte Sedimentation Rate 33 mm/hr (0-21) Anion Gap 7.0 mmol/L (3-11) Est Creatinine Clear Calc Drug Dose 48.9 ml/min Estimated GFR () 65.3 Estimated GFR (Non- 56.3 BUN/Creatinine Ratio 16.9 (10-20) Calcium Level 8.5 mg/dl (8.5-10.1) Total Bilirubin 0.4 mg/dl (0.2-1) Aspartate Amino Transf (AST/SGOT) 56 U/L (15-37) Alanine Aminotransferase (ALT/SGPT) 68 U/L (12-78) Alkaline Phosphatase 106 U/L (45-117) Total Protein 6.2 gm/dl (6.4-8.2) Albumin 2.3 gm/dl (3.4-5.0) Globulin 3.9 gm/dl (2.5-4.0) Albumin/Globulin Ratio 0.6 (0.9-2) Prothrombin Time 11.0 SECONDS (9.0-12.0) Prothromb Time International Ratio 1.0 (0.9-1.1) Activated Partial Thromboplast Time 44.9 SECONDS (21.0-31.0) Partial Thromboplastin Ratio 1.7 Test 04/01/18 16:21 Bedside Glucose 115 mg/dl (70-90) Date/Time Source Procedure Growth Status 03/28/18 16:56 Blood Blood Culture - Preliminary NO GROWTH TO DATE. Resulted Hemoglobin A1c Test 03/29/18 05:09 Range/Units Estimated Average Glucose 157 mg/dl Hemoglobin A1c 7.1 H 4.5-5.6 % Lipid Panel Test 03/29/18 05:09 Range/Units Triglycerides Level 119 0-150 mg/dl Cholesterol Level 107 0-200 mg/dl HDL Cholesterol 28 mg/dl Cholesterol/HDL Ratio 3.8 LDL Cholesterol, Calculated 55 mg/dl Medical Emergencies . Who to Call and When: Medical Emergencies: If at any time you feel your situation is an emergency, please call 911 immediately. . Non-Emergent Contact Non-Emergency issues call your: Primary Care Provider Call Non-Emergent contact if: you have any medication questions . . "Provider Documentation" section prepared by Abdirahman Naranjo. .
[2018-04-01] MEDS ORDERED: APIXABAN 2.5 MG TAB PO SCH (21:00)
[2018-04-02] MEDS ORDERED: OXYC1TAB3 PO (20:16)
--- NOTE | 2018-04-06 11:41 | Discharge Summary ---
Discharge Summary Date of Service April 06, 2018. Discharge Summary Admission Date: March 28, 2018 at 18:36 Discharge Date: April 01, 2018 Discharge Disposition: Home Principal Diagnosis: fever, left foot cellulitis /foot ulcer, atrial fibrillation, lipase high Medication Reconciliation New Medications: Apixaban (Eliquis) 2.5 Mg Tab 5 MG PO BID for 30 Days, #120 TAB Losartan Potassium (Losartan Potassium) 25 Mg Tab 25 MG PO QAM for 30 Days, #30 TAB Metoprolol Tartrate (Lopressor) 25 Mg Tab 12.5 MG PO BID for 30 Days, #30 TAB Continued Medications: Amiodarone Hcl (Cordarone) 200 Mg Tab 200 MG PO BID, TAB PT IS TO TAKE BID FOR 2 WEEKS AND JUST ONCE DAILY AFTER. Aspirin (Aspirin Chewable) 81 Mg Chew 81 MG PO QPM, TAB PT GIVEN INSTRUCTIONS BY DR IRVERA TO CONTINUE ASPIRIN PRIOR TO SURGERY - DO NOT STOP Cefadroxil (Duricef) 500 Mg Cap 500 MG PO DAILY, CAP Duloxetine Hcl (Cymbalta) 60 Mg Cap 60 MG PO DAILY, CAP Fish Oil-Cholecalciferol (Fish Oil + D3) 1 Cap Cap 1 CAP PO DAILY Gabapentin (Gabapentin) 100 Mg Cap 200 MG PO BID Levothyroxine Sodium (Levothyroxine Sodium) 50 Mcg Tab 50 MCG PO QAM Magnesium Oxide (Mag-Ox) 400 Mg Tab 400 MG PO BID, TAB Metformin Hcl (Glucophage) 500 Mg Tab 500 MG PO BID, TAB Omeprazole Magnesium (Cvs Omeprazole Magnesium) 20.6 Mg Cap 20.6 MG PO DAILY Discontinued Medications: Garlic (Garlic) Unknown Strength Cap 1 TAB PO DAILY Irbesartan-Hydrochlorothiazide (Avalide) 1 Tab Tab 0.5 TAB PO QAM, TAB PT MED LIST READS 150/12.5 Meclizine Hcl (Meclizine Hcl) 25 Mg Tab 2 TAB PO DAILY for 30 Days, #60 TAB Potassium Gluconate (Potassium Gluconate) 550 Mg Tab 550 MG PO QAM Admission Information HPI (per Admitting provider): This is a 78 year old female with a past medical history of diabetes, lumbago and neuropathic pain, HTN, hypothyroidism, L foot cellulitis on long-term antibiotics, recent episode of atrial fibrillation - presents with chills, weakness, back pain, lack of appetite. She was recently admitted to [facility] with similar symptoms. At that time, they could not find a cause of chills/weakness/lack of appetite - she was empirically started on IV abx, and then transitioned back to oral abx. for her chronic L foot cellulitis. She got home and a few days later her chills returned, she could not tolerate anything by mouth, and had some nausea. Presented to the ER: Found to have elevated white count, elevated CRP and elevated lipase Abdominal CT with no specific findings EKG - NSR Physical Exam (per Admitting): General Appearance: + pertinent finding (+lethargic, somnolent, weak, ill- appearing, with chills/rigors/shakes during exam) Head: normocephalic, atraumatic Eyes: normal inspection ENT: hearing grossly normal Neck: supple Respiratory/Chest: chest non-tender, lungs clear, normal breath sounds, no respiratory distress, no accessory muscle use Cardiovascular: regular rate, rhythm, no edema, no gallop, no JVD, no murmur , normal peripheral pulses Abdomen/GI: normal bowel sounds, non tender, soft Back: normal inspection, + muscle spasm, + paravertebral tenderness Extremities/Musculoskelatal: normal inspection, no calf tenderness, normal capillary refill, no pedal edema, normal range of motion Neurologic/Psych: no motor/sensory deficits, alert, normal mood/affect Skin: normal color, warm/dry, no rash Lymphatic: no adenopathy Hospital Course This is a 78 year old female with a past medical history of diabetes, lumbago and neuropathic pain, HTN, hypothyroidism, Left foot cellulitis on long-term antibiotics, recent episode of atrial fibrillation - presents with chills, weakness, back pain, lack of appetite Infection workup -initial differential included pancreatitis due to elevated lipase but no abdominal complaints and abdominal CT does not suggest pancreas inflammation, lipase downtrended after IV fluids, RUQ Ultrasound without abnormal biliary findings and gastroenterology service signed off and recommended outpatient EUS in 6 weeks -history of left foot cellulitis on chronic antibiotic therapy (was on outpatient cefadroxil, bottom of left foot has a small ulcer without purulence or erythema) admission WBC 11,000 on , blood cultures from 03/28/18 negative, WBC downtrending as patient had been empirically on Rocephin and Vancomycin empirically, Vancomycin stopped on 03/30/18 given negative blood cultures and to avoid renal toxicity, stopped ceftriaxone on 03/30/15, switched to oral Cephalexin as it is a first generation cephalosporin and cefadroxil is not available in formulary -Patient can be discharged and complete her previous outpatient cefadroxil Other fever workup Superficial Thrombophlebitis RUQ - No DVT within the right upper extremity. Nonocclusive superficial thrombus within the right cephalic vein at the antecubital fossa Lower extremity ultrasound: 1. There is no sonographic evidence of deep venous thrombosis identified in the right or left lower extremity. 2. Right-sided Chun 's cyst. - ESR is 33 which is somewhat elevated Paroxysmal atrial fibrillation ( [id number] score of 4 for age over 75, female, with diabetes), currently rate controlled atrial fibrillation -PO amiodarone, metoprolol tartrate 12.5 mg BID, heparin drip was given during the hospital stay but patient is discharged with prescription for Eliquis as 5 mg BID and Eliquis ordered on discharge stay -Transthoracic Echocardiogram 03/30/18 * The left ventricle is normal in size. * There is mild concentric left ventricular hypertrophy. * Ejection Fraction = 50-55%. * The right ventricular systolic function is normal. * The left atrial size is normal. * Right atrial size is normal. * No significant valvular pathology. -Cardiology service performed FARHEEN on 04/01/18 and no vegetations or endocarditics identified Left Ventricle * The left ventricle is normal in size. * There is normal left ventricular wall thickness. * Left ventricular systolic function is normal. * Ejection Fraction = 55-60%. * The left ventricular wall motion is normal. Right Ventricle * The right ventricle is normal in size and function. Atria * The left atrial size is normal. * No left atrial mass or thrombus visualized. * No thrombus is detected in the left atrial appendage. * The right atrium is mild to moderately dilated. * The interatrial septum is intact with no evidence for an atrial septal defect. Mitral Valve * There is an area of mild focal calcification affecting the posterior mitral valve annulus and posterior mitral valve leaflet with calcification of the sub- valvular apparatus. This appears consistent with senile calcification rather than vegetation. * There is no mitral valve prolapse present. * There is no vegetation seen on the mitral valve. * There is no mitral valve stenosis. * There is mild mitral regurgitation. Tricuspid Valve * The tricuspid valve is normal. * There is no tricuspid valve vegetation. * There is no tricuspid stenosis. * There is mild tricuspid regurgitation. Aortic Valve * The aortic valve is trileaflet. * There is no aortic valvular vegetation. * No hemodynamically significant valvular aortic stenosis. * No aortic regurgitation is present. Pulmonic Valve * The pulmonic valve is not well seen, but is grossly normal. * Mild pulmonic valvular regurgitation. Great Vessels * The aortic root is normal size. * Mild non-mobile atheromatous plaque was observed in the visualized portion of the descending thoracic aorta or aortic arch or proximal descending aorta. Pericardium * There is a trivial loculated posterior pericardial effusion. There is no evidence of tamponade. Diabetes Mellitus, type 2 -continue home regimen on discharge Hypothyroidism - TSH within normal limits - continue home dosed Synthroid Lumbago Radiculopathy - Lumbar MRI: 1. No fractures identified within the lumbar spine. 2. Straightening of the lumbar spine. 3. Posterior decompression fusion at L3-L5. Small amount of ill-defined fluid/edema at the laminectomy sites is nonspecific but likely related to the postoperative change. 4. Multilevel degenerative changes as described above most pronounced at the L3-L4 level where there is mild central canal narrowing. - Thoracic MRI: normal - continue home dosed Cymbalta and Gabapentin for nerve pain Discharge Instructions Discharge to home Patient should complete outpatient cefadroxil Patient should take Eliquis 5 mg BID for the atrial fibrillation Gastroenterology service evaluated the patient for elevated lipase and recommended outpatient EUS in 6 weeks Patient should follow up with primary medical doctor Total time spent on discharge = 40 minutes This includes examination of the patient, discharge planning, medication reconciliation, and communication with other providers. Discharge Instructions see above
== END 2018-04-01 18:12 | disposition home or self-care (01) | DRG 638 ==
LOC: C.EDB 16:13 → C.MED 18:36 → ENRESERV 18:54
PROVIDERS: ADMIT Family Medicine; ATTEND Hospitalist
PROC: B24BZZ4 Ultrasonography of Heart with Aorta, Transesophageal (ICD-10-PCS; principal; 2018-04-01 07:47)
DX: E11.69 Type 2 diabetes mellitus with other specified complication (principal); L03.116 Cellulitis of left lower limb; L97.929 Non-pressure chronic ulcer of unspecified part of left lower leg with unspecified severity; E11.40 Type 2 diabetes mellitus with diabetic neuropathy, unspecified; E11.621 Type 2 diabetes mellitus with foot ulcer; I80.8 Phlebitis and thrombophlebitis of other sites; E83.42 Hypomagnesemia; E03.9 Hypothyroidism, unspecified; I10 Essential (primary) hypertension; I48.0 Paroxysmal atrial fibrillation; M54.16 Radiculopathy, lumbar region; I25.2 Old myocardial infarction; Z79.82 Long term (current) use of aspirin; Z79.84 Long term (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 oral hypoglycemic drugs; Z83.3 Family history of diabetes mellitus; Z79.2 Long term (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 antibiotics

== ENCOUNTER 2018-04-02 16:18 | Emergency (ER) | payer OTHER ==
[~2018-04-02] VITALS: Ht 162.6 cm; Wt 152.0 kg
[~2018-04-02 16:18] MED LIST changes: +AMIO200T4 PO; +CEFA500C2 PO; -CHOL1CAP27 PO; -CYAN500T PO; -CYM/30 PO; +CZR25 PO; +DULO60CA44 PO; +ELQ25 PO; +FISH1CAP3 PO; -GABA-113 PO; -GARL10007 PO; -IRBE-41 PO; +LPR25 PO; +MAGN400T6 PO; -MULT-916 PO; -NF1420 PO; +NRN100 PO; -OMEG10007 PO; +OMEP20.64 PO; -POTA2.5T PO; -PRLSR20 PO
[2018-04-02 16:30] VITALS: TEMP 36.4; Ht 162.6 cm; Wt 152.0 kg
[2018-04-02] MEDS ORDERED: ONDANSETRON INJ 2 MG/ML 2 ML VIAL IV STA (17:07)
[2018-04-02] MEDS ORDERED: MoRPHine SULFATE 10 MG/ML CARP/VIAL IV STA (17:07)
[2018-04-02 17:35] LABS: BASO % 0.2 %; BASO ABS # 0.03 K/uL (0-0.2); EOS % 0.2 %; EOS ABS # 0.03 K/uL (0-0.5); HEMATOCRIT 37.5 % (37-47); HEMOGLOBIN 12.7 g/dL (12.0-16.0); IG# 0.15 K/uL (0.00-0.02); LYMPH % 4.3 %; LYMPH ABS # 0.71 K/uL (1.2-3.4); MEAN CELL VOLUME 81.7 fL (80-100); MEAN CORPUSCULAR HEMOGLOBIN 27.7 pg (25-34); MEAN CORPUSCULAR HGB CONC 33.9 g/dl (32-36); MONO ABS # 0.66 K/uL (0.11-0.59); NEUT % 90.4 %; NEUT ABS # 14.86 K/uL (1.4-6.5); PLATELET COUNT 381 K/uL (130-400); RED CELL DISTRIBUTION WIDTH CV 14.9 % (11.5-14.5); RED CELL DISTRIBUTION WIDTH SD 43.7 fL (36.4-46.3); WHITE BLOOD COUNT 16.44 K/uL (4.8-10.8)
[2018-04-02 17:45] VITALS: O2SAT 93
[2018-04-02 18:01] LABS: ALBUMIN 3.3 gm/dl (3.4-5.0); CALCIUM 9.6 mg/dl (8.5-10.1); CREATININE 1.09 mg/dl (0.60-1.20); POTASSIUM 4.2 mmol/L (3.5-5.1); TOTAL PROTEIN 7.5 gm/dl (6.4-8.2)
--- NOTE | 2018-04-02 19:32 | DIAGNOSTIC IMAGING REPORT ---
CHEST ONE VIEW PORTABLE CLINICAL HISTORY: Weakness COMPARISON STUDY: 03/28/2018 FINDINGS: The heart remains enlarged. There is continued evidence for interstitial pulmonary edema. There are small bilateral pleural effusions. Bibasal airspace opacities persist, and likely represent focal edema or compressive atelectatic change.[ IMPRESSION: Continued radiographic evidence for interstitial pulmonary edema. There are small bilateral pleural effusions. Electronically signed by: Jose Guerra M.D. 04/02/2018 7:30 PM Dictated Date/Time: 04/02/2018 7:29 PM
[2018-04-02 20:01] VITALS: BP 152/84
[2018-04-02 20:06] VITALS: PULSE 81; O2SAT 92
[2018-04-02] MEDS ORDERED: OXYC1TAB3 PO (20:16)
[2018-04-02] MEDS ORDERED: OXYCODONE IR HOME PACK PO ONE (20:30)
--- NOTE | 2018-04-02 21:28 | EMERGENCY ROOM VISIT NOTE ---
History Report prepared by Selina: Tae Moss Under the Supervision of: Dr. Oleg Bennett D.O. First contact with patient: 16:46 Chief Complaint: LEG PAIN,LEG INJURY Stated Complaint: LEG PAIN History of Present Illness The patient is a 78 year old female who presents to the Emergency Room with complaints of worsening bilateral leg pain beginning 5 days ago. The patient's daughter states the patient was evaluated two Mondays ago for chills, sweats, and fevers. She reports the patient was told she had an irregular heartbeat. The daughter notes the patient was discharged and not given medication. She states the patient has not had a fever about 100.4; she note the patient's temperature did rise to 100.3. The daughter reports last Thursday, the patient developed chills, severe back pain, and mild leg pain. She notes the patient was evaluated in the ED and admitted. The daughter states the patient had several test performed including an EKG, CT scan, ultrasound of the legs, MRI of the back, and a normal echo. She reports the patient was originally told it was an infection. The daughter notes the patient has a history of three staph infection, and her last one was in October. She states the patient was given IV antibiotics for 8 weeks, and she is still on oral antibiotics. The patient was evaluated by infectious disease while in the hospital. The daughter reports the patient had severe pain in her legs last night. Pain is a 10 out of 10. She notes the patient's pain gradually worsened in the hospital, and she was given pain medication to help. The daughter states the patient was not given medication when she left the hospital yesterday for her leg pain. She reports the patient has a history of restless leg and neuralgia. The patient states her symptoms feel similar to her other episode, expect it has never been this severe. She reports she has been taking ibuprofen for her back pain. The patient denies cough, runny nose, congestion, nausea, vomiting, diarrhea, numbness in groin, trouble urinating, burning with urination, and current back pain. Source of History: patient, family (daughter) Onset: 5 days ago Position: leg (bilateral) Timing: worsening Associated Symptoms: No cough, No nausea, No vomiting, No back pain, No diarrhea, No urinary symptoms (trouble urinating and burning with urination), No numbness Note: Denies: runny nose, congestion Review of Systems See HPI for pertinent positives & negatives. A total of 10 systems reviewed and were otherwise negative. Past Medical & Surgical Medical Problems: (1) Chills with fever (2) Diabetes (3) Foot infection (4) Osteoarthritis of left foot (5) Pes planus (6) Vertigo Surgical Problems: (1) Postoperative state Family History Diabetes mellitus FHx: cancer Social History Smoking Status: Never Smoker Drug Use: none Marital Status: Housing Status: lives with family Occupation Status: retired Current/Historical Medications Scheduled Amiodarone Hcl (Cordarone), 200 MG PO BID Apixaban (Eliquis), 5 MG PO BID Aspirin (Aspirin Chewable), 81 MG PO QPM Cefadroxil (Duricef), 500 MG PO DAILY Duloxetine Hcl (Cymbalta), 60 MG PO DAILY Fish Oil-Cholecalciferol (Fish Oil + D3), 1 CAP PO DAILY Gabapentin (Gabapentin), 200 MG PO BID Levothyroxine Sodium (Levothyroxine Sodium), 50 MCG PO QAM Losartan Potassium (Losartan Potassium), 25 MG PO QAM Magnesium Oxide (Mag-Ox), 400 MG PO BID Metformin Hcl (Glucophage), 500 MG PO BID Metoprolol Tartrate (Lopressor), 12.5 MG PO BID Omeprazole Magnesium (Cvs Omeprazole Magnesium), 20.6 MG PO DAILY Scheduled PRN Oxycodone Immediate Rel Tab (Roxicodone Ir), 5 MG PO Q6H PRN for Pain Allergies Coded Allergies: No Known Allergies (Unverified , 04/02/18) Physical Exam Vital Signs Date Time Temp Pulse Resp B/P (MAP) Pulse Ox O2 Delivery O2 Flow Rate FiO2 04/02/18 20:06 81 16 92 Room Air 04/02/18 20:01 152/84 04/02/18 19:30 78 17 97 Room Air 04/02/18 19:03 78 16 152/77 93 Room Air 04/02/18 18:10 79 19 148/87 94 Nasal Cannula 2.0 04/02/18 17:45 72 20 162/79 93 Nasal Cannula 2.0 04/02/18 17:45 93 Nasal Cannula 2.0 04/02/18 17:31 77 04/02/18 16:30 36.4 80 18 152/72 94 Room Air Physical Exam GENERAL: Laying in bed, alert, well appearing, well nourished, no distress, non- toxic EYE EXAM: normal conjunctiva. PERRL and EOM's intact. OROPHARYNX: no exudate, no erythema, lips, buccal mucosa, and tongue normal and mucous membranes are moist NECK: supple, no nuchal rigidity, no adenopathy, non-tender LUNGS: Clear to auscultation. Normal chest wall mechanics HEART: no murmurs, S1 normal and S2 normal ABDOMEN: abdomen soft, non-tender, normo-active bowel sounds, no masses, no rebound or guarding. BACK: Back is symmetrical on inspection and there is no deformity, no midline tenderness, no CVA tenderness. SKIN: no rashes and no bruising UPPER EXTREMITIES: upper extremities are grossly normal. LOWER EXTREMITIES: No pitting edema. Calves equal bilaterally. Flexion and extension of the hips, knees, ankles, and EHL 5/5 bilaterally. Gross sensation is intact. DPs are 2/4 bilateral. Small ulcer on the medial/distal aspect and base of left foot. NEURO EXAM: Normal sensorium, cranial nerves II-XII intact, normal speech, no weakness of arms. Medical Decision & Procedures ER Provider Diagnostic Interpretation: Radiology results as stated below per my review and the radiologist's interpretation: CHEST ONE VIEW PORTABLE CLINICAL HISTORY: Weakness COMPARISON STUDY: 03/28/2018 FINDINGS: The heart remains enlarged. There is continued evidence for interstitial pulmonary edema. There are small bilateral pleural effusions. Bibasal airspace opacities persist, and likely represent focal edema or compressive atelectatic change.[ IMPRESSION: Continued radiographic evidence for interstitial pulmonary edema. There are small bilateral pleural effusions. Electronically signed by: Jose Guerra M.D. 04/02/2018 7:30 PM Dictated Date/Time: 04/02/2018 7:29 PM Laboratory Results 04/02/18 16:45 Red Blood Count 4.59, Mean Corpuscular Volume 81.7, Mean Corpuscular Hemoglobin 27.7, Mean Corpuscular Hemoglobin Concent 33.9, Mean Platelet Volume 9.0, Neutrophils (%) (Auto) 90.4, Lymphocytes (%) (Auto) 4.3, Monocytes (%) (Auto) 4.0, Eosinophils (%) (Auto) 0.2, Basophils (%) (Auto) 0.2, Neutrophils # (Auto) 14.86, Lymphocytes # (Auto) 0.71, Monocytes # (Auto) 0.66, Eosinophils # (Auto) 0.03, Basophils # (Auto) 0.03 04/02/18 16:45 Test 04/02/18 16:45 04/02/18 19:30 White Blood Count 16.44 K/uL (4.8-10.8) Red Blood Count 4.59 M/uL (4.2-5.4) Hemoglobin 12.7 g/dL (12.0-16.0) Hematocrit 37.5 % (37-47) Mean Corpuscular Volume 81.7 fL (80-100) Mean Corpuscular Hemoglobin 27.7 pg (25-34) Mean Corpuscular Hemoglobin Concent 33.9 g/dl (32-36) Platelet Count 381 K/uL (130-400) Mean Platelet Volume 9.0 fL (7.4-10.4) Neutrophils (%) (Auto) 90.4 % Lymphocytes (%) (Auto) 4.3 % Monocytes (%) (Auto) 4.0 % Eosinophils (%) (Auto) 0.2 % Basophils (%) (Auto) 0.2 % Neutrophils # (Auto) 14.86 K/uL (1.4-6.5) Lymphocytes # (Auto) 0.71 K/uL (1.2-3.4) Monocytes # (Auto) 0.66 K/uL (0.11-0.59) Eosinophils # (Auto) 0.03 K/uL (0-0.5) Basophils # (Auto) 0.03 K/uL (0-0.2) RDW Standard Deviation 43.7 fL (36.4-46.3) RDW Coefficient of Variation 14.9 % (11.5-14.5) Immature Granulocyte % (Auto) 0.9 % Immature Granulocyte # (Auto) 0.15 K/uL (0.00-0.02) Anion Gap 9.0 mmol/L (3-11) Est Creatinine Clear Calc Drug Dose 63.9 ml/min Estimated GFR () 56.7 Estimated GFR (Non- 48.9 BUN/Creatinine Ratio 14.7 (10-20) Calcium Level 9.6 mg/dl (8.5-10.1) Total Bilirubin 0.6 mg/dl (0.2-1) Direct Bilirubin 0.1 mg/dl (0-0.2) Aspartate Amino Transf (AST/SGOT) 33 U/L (15-37) Alanine Aminotransferase (ALT/SGPT) 58 U/L (12-78) Alkaline Phosphatase 116 U/L (45-117) Total Protein 7.5 gm/dl (6.4-8.2) Albumin 3.3 gm/dl (3.4-5.0) Lipase 998 U/L (73-393) Urine Color DK YELLOW Urine Appearance CLEAR (CLEAR) Urine pH 7.5 (4.5-7.5) Urine Specific [place] 1.025 (1.000-1.030) Urine Protein NEG (NEG) Urine Glucose (UA) NEG (NEG) Urine Ketones NEG (NEG) Urine Occult Blood NEG (NEG) Urine Nitrite NEG (NEG) Urine Bilirubin NEG (NEG) Urine Urobilinogen NEG (NEG) Urine Leukocyte Esterase NEG (NEG) Urine WBC (Auto) 1-5 /hpf (0-5) Urine RBC (Auto) 0-4 /hpf (0-4) Urine Hyaline Casts (Auto) 1-5 /lpf (0-5) Urine Epithelial Cells (Auto) >30 /lpf (0-5) Urine Bacteria (Auto) NEG (NEG) Urine Renal Epithelial Cells /lpf (0-5) Urine Mucus PRESENT (NONE PRSENT) Laboratory results per my review. Medications Administered Medications (Trade) Dose Ordered Sig/Shannon Route Start Time Stop Time Status Last Admin Dose Admin Morphine Sulfate (MoRPHine SULFATE INJ) 6 mg NOW STAT IV 04/02/18 17:07 04/02/18 17:09 DC 04/02/18 17:17 6 MG Ondansetron HCl (Zofran Inj) 4 mg NOW STAT IV 04/02/18 17:07 04/02/18 17:09 DC 04/02/18 17:18 4 MG Oxycodone HCl (Roxicodone Immediate Rel 5MG Home Pack) 1 homepack UD ONCE PO 04/02/18 20:30 04/02/18 20:31 DC 04/02/18 20:21 1 HOMEPACK ED Course ED COURSE: Vital signs were reviewed and showed situational hypertension. The patients medical record was reviewed The above diagnostic studies were performed and reviewed. ED treatments and interventions as stated above. 1656: The patient was evaluated in room B05. A complete history and physical examination was performed. 170: Ordered Ondansetron HCl 4mg IV, Morphine Sulfate 6mg IV 171: I discussed the patient's case with Dr. Naranjo, [facility] Hospitalist. He notes the patient had an extensive fever work-up while in the hospital. He states he is uncertain of the cause, and she has been afebrile since the . 1904: I reevaluated the patient and discussed current test results. 1938: I reevaluated the patient and discussed the need to have a chest x-ray. 2020: Upon reevaluation, the patient is resting. I discussed my findings with the patient and her family. They understand and agree with the treatment plan. 2029: Ordered Oxycodone HCl 1 homepack PO Based on the patients age, coexisting illnesses, exam and lab findings the decision to treat as an outpatient was made. The patient remained stable while under my care. The patient appeared well at the time of discharge. Medical Decision Differential diagnosis: Etiologies such as DVT, musculoskeletal, infection, joint effusion, trauma, lymphedema, idiopathic, CHF, as well as others were entertained. Patient is a 78-year-old female who presents the ER for severe bilateral lower extremity pain. She notes that this is been present during and throughout her last admission in the hospital which occurred around the of this month. During that time she had MRIs of her thoracic and lumbar spine along with a CT of the abdomen pelvis and a TTE all of which were fairly unremarkable. Blood work was remarkable for an elevated lipase. Blood cultures were negative. UA and chest x-ray were unremarkable. She has been afebrile since around the . Family notes that prior to this last admission she was admitted at another hospital for intermittent fevers of unknown origin. Her neurologic exam is completely intact on my exam. She describes her pain as consistent with her restless legs but significantly worsened. She notes that she feels like she has to move her legs and they are burning. There is no signs of cauda equina. She is afebrile. CBC does show a leukocytosis of 16,000. BMP along with LFTs and bilirubin was unremarkable. Lipase was 900. Last lipase was drawn on the and was in the 3000s. I do favor this lipase is trending down. I favor the leukocytosis is secondary to her discomfort as she is shaking her legs in bed and complaining of severe pain. She was given IV morphine. She had near complete resolution of her pain. With the leukocytosis a UA was obtained and shows no signs of infection. Chest x-ray was unremarkable with exception of mild congestion. No upper respiratory symptoms to suggest infection. Abdominal exam was completely benign. No complaints from that standpoint. Her left foot did have a small ulcer which appears to be healing well. Based on her presentation and persistent movement of the legs throughout the course of the pain I do favor this is likely neuropathic. Family did request a Lyme titer which it did request the charge nurse to add on following discharge as they requested this as the patient was leaving the room to go home. Discussed with Pt concerning signs and symptoms to watch out for. Pt was instructed to follow up with their PCP and discussed with the patient their option to return to the ED at anytime for persistent or worsening symptoms. The appropriate anticipatory guidance and out-patient management, including indications for return to the emergency department, were explained at length to the patient and understood. Medication Reconcilliation Current Medication List: was personally reviewed by me Blood Pressure Screening Patient's blood pressure: Elevated blood pressure Blood pressure disposition: Elevated BP felt to be situational Consults Time Called: 1704 Consulting Physician: Johan Van Hospitalist Returned Call: 1712 I discussed the patient's case with Johan Van Hospitalist. He notes the patient had an extensive fever work-up while in the hospital. He states he is uncertain of the cause, and she has been afebrile since the . Impression Primary Impression: Bilateral leg pain Additional Impression: Leukocytosis Scribe Attestation The scribe's documentation has been prepared under my direction and personally reviewed by me in its entirety. I confirm that the note above accurately reflects all work, treatment, procedures, and medical decision making performed by me. Departure Information Dispostion Home / Self-Care Prescriptions Oxycodone Immediate Rel Tab (ROXICODONE IR) 5 Mg Tab 5 MG PO Q6H Y for Pain, #10 TAB Prov: Oleg Bennett, DO 04/02/18 Referrals No Doctor, Assigned (PCP) Forms HOME CARE DOCUMENTATION FORM, IMPORTANT VISIT INFORMATION Patient Instructions ED Neuropathy Peripheral, Leg Low Back Pain Poss Causes, My [facility] Additional Instructions Please follow up with your primary care doctor with in the next 24 hours. Any worsening of your symptoms, please return to the ED immediately. This includes any fevers greater than 100.4, worsening pain, chest pain, shortness breath, persistent nausea, vomiting, unable to eat or drink, or any other concerning signs or symptoms from your standpoint. You were given medications during this visit that will inhibit your ability to drive, operate machinery and work. Please do NOT drive, operate machinery or work for the next 12hrs. You were also given a prescription for a narcotic. While taking this medication you should also not drive, operate machinery and or work. Problem Qualifiers Additional Impression: Leukocytosis Leukocytosis type: unspecified Qualified Codes: D72.829 - Elevated white blood cell count, unspecified
== END 2018-04-02 20:30 | disposition home or self-care (01) ==
LOC: C.EDB 16:19
DX: M79.604 Pain in right leg (principal); M79.605 Pain in left leg; D72.829 Elevated white blood cell count, unspecified; G25.81 Restless legs syndrome; E11.9 Type 2 diabetes mellitus without complications; M19.072 Primary osteoarthritis, left ankle and foot; Z98.890 Other specified postprocedural states; Z83.3 Family history of diabetes mellitus; Z80.9 Family history of malignant neoplasm, unspecified; Z79.01 Long term (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 a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; Z79.82 Long term (current) use of aspirin; Z79.84 Long term (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 oral hypoglycemic drugs; Z79.899 Other long term (current) drug therapy; R03.0 Elevated blood-pressure reading, without diagnosis of hypertension

== ENCOUNTER 2023-10-16 14:08 | Inpatient (IN) ==
[2023-10-16] MEDS ORDERED: Patient's HEIGHT &/or WEIGHT Needed SCH (14:12)
[2023-10-16 15:06] LABS: Basophils # (auto) 0.04 K/uL (0.00-0.20); Basophils % (auto) 0.4 %; Eosinophils # (auto) 0.02 K/uL (0.00-0.50); Eosinophils % (auto) 0.2 %; Hematocrit (blood only) 43.4 % (37.0-47.0); Hemoglobin 14.7 g/dl (12.0-16.0); Immature Granulocytes # (auto) 0.04 K/uL (0.01-0.20); Immature Granulocytes % (auto) 0.4 %; Lymphocytes # (auto) 0.61 K/uL (1.20-3.40); Lymphocytes % (auto) 5.9 %; Mean Corpuscular Hemoglobin 28.1 pg (25.0-34.0); Mean Corpuscular Hgb Conc 33.9 g/dL (32.0-36.0); Mean Platelet Volume 10.5 fL (9.4-12.4); Monocytes # (auto) 0.65 K/uL (0.11-0.59); Monocytes % (auto) 6.3 %; Neutrophils % (auto) 86.8 %; Platelet Count 266 K/uL (130-400); RDW Coefficient of Variation 14.7 % (11.5-14.5); RDW Standard Deviation 44.5 fL (36.4-46.3); Red Blood Count 5.23 M/uL (4.20-5.40); White Blood Count 10.26 K/ul (4.8-10.8)
[2023-10-16 15:22] LABS: Alanine Aminotransferase 34 U/L (7-52); Albumin Globulin Ratio 1.1 (0.9-2); Albumin Level 4.3 gm/dl (3.4-5.0); Alkaline Phosphatase 119 U/L (34-104); Anion Gap 9 (3-11); Aspartate Aminotransferase 43 U/L (13-39); BUN Creatinine Ratio 19.5 (10-20); Bilirubin,Total 1.6 mg/dl (0.2-1.0); Blood Urea Nitrogen 23 mg/dl (6-23); Carbon Dioxide 28 mmol/L (21-32); Chloride 100 mmol/L (98-107); Est GFR (African American) 49.7 ml/min; Est GFR (Non-African American) 42.9 ml/min; Globulin 3.8 gm/dl (2.5-4.0); Glucose 107 mg/dl (70-99(Fasting)); Potassium 4.3 mmol/L (3.5-5.1); Sodium 137 mmol/L (136-145); Total Protein 8.1 gm/dl (6.0-8.3)
--- NOTE | 2023-10-16 16:06 | Emergency Department Note ---
Impression & Plan Open toe wound, Wound of foot ED Provider Note NAME: BROWN DONIS AGE: 83 SEX: F : 1940 ARRIVES VIA: Walk-In INFORMANT: Patient, ED PROVIDER(S): Ailyn Raymond MD CHIEF COMPLAINT: Right third toe infection HPI: This is a an 83-year-old female with history of diabetes, diabetic neuropathy presenting for right third toe infection. Patient noticed Thursday, 2 days ago, that she began having swelling to her third toe. She notes that it was not significantly red or black. However today she looked at it again and it was black at the tip, red and painful in her ankle/foot. She notes that she did have infection in the left foot in the past requiring surgery and she got septic from this. She states she think she had a fever at home and is as high as 104 from a temporal thermometer. She has felt weak otherwise but no nausea, vomiting, cough, congestion. ROS: See above HPI for pertinent positives & negatives. A total of 10 systems reviewed and were otherwise negative. PAST MEDICAL HISTORY: See Below PAST SURGICAL HISTORY: See Below FAMILY HISTORY: See Below SOCIAL HISTORY: See Below HOME MEDICATIONS: See Below ALLERGIES: See Below VITALS: See Below PHYSICAL EXAMINATION: [General: resting comfortably in no acute distress Head: Normocephalic and atraumatic Eyes: Normal inspection, extraocular muscles intact Ear, nose, throat: Normal external exam Neck: Normal range of motion Respiratory: lungs clear to auscultation bilaterally Cardiovascular: Regular rate/rhythm, no murmur GI: soft, nontender, no guarding or rebound Extremities: Third right toe shows black eschar, erythema, slight swelling, pain to palpation Neuro: The patient awake and alert, appropriately conversive, no focal deficits, symmetric faces Skin: Warm, dry, and intact MEDICAL DECISION MAKING: This is an 83-year-old female with history of diabetes diabetic neuropathy presenting for right third toe infection. Patient will require IV antibiotics admission. Patient will require x-ray to evaluate for osteomyelitis. Discussed with Dr. Granado who saw the patient at bedside, did debridement. Patient's labs reviewed, no serum leukocytosis, no anemia. Electrolytes in normal limits. Bilirubin slightly elevated 1.6. COVID/flu negative. Discussed with [facility] hospitalist team for admission Triage Nursing notes reviewed. Prior medical records reviewed Vital Signs: reviewed and remarkable for no significant abnormalities Differential diagnosis: Osteomyelitis, dry gangrene, diabetic ulcer ER treatment provided: See below Diagnostics interpreted by me: ECG: None Cardiac Monitoring: An order was placed for continuous cardiac monitoring. The monitor shows a rate of 77 with sinus rhythm Laboratory studies: As stated above and show below. Imaging studies: See below. Radiographic imaging was reviewed by myself Consultation(s): None Past Med/Surg History Medical History Paroxysmal atrial fibrillation Hx of deep venous thrombosis 15 YR AGO CAD (coronary artery disease) S/P CABG + stent April 2018. Subsequent cath suggested a kink in the HERRERA graft. 6 weeks later cath confirmed nonfunctional segment of graft to the LAD. She is left with residual ischemic burden in her LAD and Dx territories. Osteoarthritis Chronic back pain Hiatal hernia GERD (gastroesophageal reflux disease) Hypothyroidism Diabetes mellitus, type 2 NIDDM. A1C 7.2% 03/2018. On anticoagulant therapy Per cardio 12/29 OK to hold Eliquis (and Plavix) for one week prior to lap sandy. 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 01/03/2019. History of cardiac cath APRIL 26, 2018. [facility]. History of heart artery stent APRIL 26, 2018. [facility]. History of coronary artery bypass graft X3 VESSELS (APRIL 25, 2018), plus stent placed to RCA. 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: No Beliefs That Will Affect Care: None Current Living Situation: Spouse Feels Safe at Home: Yes Assistive Devices: Cane, Glasses and Special Shoe Allergies Allergies Allergy/AdvReac Type Severity Reaction Status Date / Time metformin AdvReac Severe Diarrhea Unverified 10/16/23 17:47 Home Meds Home Medications Medication Instructions Recorded Confirmed atorvastatin 40 mg tablet 40 mg PO QAM 12/30/18 10/16/23 levothyroxine 75 mcg tablet 75 mcg PO QAM 12/30/18 10/16/23 acetaminophen 500 mg tablet 500 mg PO QID PRN Pain 01/10/20 10/16/23 apixaban 5 mg tablet (Eliquis) 5 mg PO BID 01/10/20 10/16/23 potassium gluconate 595 mg (99 mg) 650 mg PO QDD 01/10/20 10/16/23 tablet,extended release calcium carbonate 600 mg calcium 600 mg PO DAILY 10/16/23 10/16/23 (1,500 mg) tablet (Calcium) cholecalciferol (vitamin D3) 25 25 mcg PO DAILY 10/16/23 10/16/23 mcg (1,000 unit) chewable tablet (Vitamin D3) cyanocobalamin (vitamin B-12) 1,000 mcg PO DAILY 10/16/23 10/16/23 1,000 mcg tablet (Vitamin B-12) gabapentin 800 mg tablet 800 mg PO TID 10/16/23 10/16/23 insulin degludec 200 unit/mL (3 30 unit subcut BID 10/16/23 10/16/23 mL) subcutaneous pen (Tresiba FlexTouch U-200 insulin) lactobacillus combination no.4 3 3,000 mmu cells PO BID 10/16/23 10/16/23 billion cell capsule (Probiotic) metoprolol succinate 50 mg 50 mg PO QAM 10/16/23 10/16/23 tablet,extended release 24 hr multivitamin 1 tab PO DAILY 10/16/23 10/16/23 omega 6-epw-art-fish oil 1,200 mg 1 cap PO BID 10/16/23 10/16/23 (144 mg-216 mg) capsule (Fish Oil) pantoprazole 40 mg tablet,delayed 40 mg PO DAILY 10/16/23 10/16/23 release semaglutide 0.25 mg or 0.5 mg (2 0.25 mg subcut WK 10/16/23 10/16/23 mg/3 mL) subcutaneous pen injector (Ozempic) Previous Rx's Medication Instructions Recorded clopidogrel 75 mg tablet (Plavix) 75 mg PO DAILY #30 tabs 09/05/22 Results & Data (ED) Vital Signs Vital Signs - 24 hr 10/16/23 14:16 10/16/23 15:22 10/16/23 15:30 Temperature 37.0 C Temperature Source Temporal Artery Scan Pulse Rate 88 80 79 Pulse Rate from SpO2 Sensor 80 79 Pulse Rhythm Regular Pulse Strength Normal Respiratory Rate 18 22 20 Respiratory Effort / Characteristics Non-Labored Spontaneous Respiratory Depth Normal Blood Pressure 105/66 Blood Pressure Mean 79 Blood Pressure Position Sitting Pulse Oximetry 98 95 95 Oxygen Delivery Method Room Air Sepsis Recent Fever Within 48 Hours Yes Sepsis New/Unexplained Change in Mental Status No Sepsis Action Taken by Nursing No Action Required 10/16/23 15:40 10/16/23 15:47 10/16/23 15:47 Temperature Temperature Source Pulse Rate 75 78 Pulse Rate from SpO2 Sensor 76 79 Pulse Rhythm Pulse Strength Respiratory Rate 17 14 Respiratory Effort / Characteristics Respiratory Depth Blood Pressure 115/56 L Blood Pressure Mean 71 Blood Pressure Position Pulse Oximetry 94 94 Oxygen Delivery Method Sepsis Recent Fever Within 48 Hours Sepsis New/Unexplained Change in Mental Status Sepsis Action Taken by Nursing 10/16/23 15:50 10/16/23 16:00 10/16/23 16:00 Temperature Temperature Source Pulse Rate 80 79 Pulse Rate from SpO2 Sensor 80 79 Pulse Rhythm Pulse Strength Respiratory Rate 21 19 Respiratory Effort / Characteristics Respiratory Depth Blood Pressure 117/64 Blood Pressure Mean 79 Blood Pressure Position Pulse Oximetry 92 96 Oxygen Delivery Method Sepsis Recent Fever Within 48 Hours Sepsis New/Unexplained Change in Mental Status Sepsis Action Taken by Nursing 10/16/23 16:55 10/16/23 19:00 10/16/23 19:15 Temperature Temperature Source Pulse Rate 76 74 73 Pulse Rate from SpO2 Sensor Pulse Rhythm Pulse Strength Respiratory Rate 18 15 Respiratory Effort / Characteristics Respiratory Depth Blood Pressure 94/45 L 97/64 L Blood Pressure Mean 61 75 Blood Pressure Position Pulse Oximetry 93 94 Oxygen Delivery Method Room Air Room Air Sepsis Recent Fever Within 48 Hours Sepsis New/Unexplained Change in Mental Status Sepsis Action Taken by Nursing 10/16/23 19:30 10/16/23 20:20 10/16/23 20:31 Temperature Temperature Source Pulse Rate 75 80 76 Pulse Rate from SpO2 Sensor Pulse Rhythm Pulse Strength Respiratory Rate 23 24 23 Respiratory Effort / Characteristics Respiratory Depth Blood Pressure 104/69 155/66 H 112/72 Blood Pressure Mean 80 95 85 Blood Pressure Position Pulse Oximetry 93 94 97 Oxygen Delivery Method Room Air Room Air Room Air Sepsis Recent Fever Within 48 Hours Sepsis New/Unexplained Change in Mental Status Sepsis Action Taken by Nursing 10/16/23 20:52 10/16/23 21:00 10/16/23 21:30 Temperature Temperature Source Pulse Rate 79 81 79 Pulse Rate from SpO2 Sensor Pulse Rhythm Pulse Strength Respiratory Rate 20 18 Respiratory Effort / Characteristics Respiratory Depth Blood Pressure 91/72 L 121/58 L Blood Pressure Mean 78 79 Blood Pressure Position Pulse Oximetry 97 94 Oxygen Delivery Method Room Air Room Air Sepsis Recent Fever Within 48 Hours Sepsis New/Unexplained Change in Mental Status Sepsis Action Taken by Nursing 10/16/23 22:00 Temperature Temperature Source Pulse Rate 77 Pulse Rate from SpO2 Sensor Pulse Rhythm Pulse Strength Respiratory Rate 16 Respiratory Effort / Characteristics Respiratory Depth Blood Pressure 109/70 Blood Pressure Mean 83 Blood Pressure Position Pulse Oximetry 98 Oxygen Delivery Method Room Air Sepsis Recent Fever Within 48 Hours Sepsis New/Unexplained Change in Mental Status Sepsis Action Taken by Nursing Laboratory Data 10/16/23 14:33 10/16/23 14:33 Lab Results 10/16/23 10/16/23 10/16/23 Range/Units 14:33 16:04 16:15 WBC 10.26 (4.8-10.8) K/ul RBC 5.23 (4.20-5.40) M/uL Hgb 14.7 (12.0-16.0) g/dl Hct 43.4 (37.0-47.0) % MCV 83.0 (80.0-100.0) fL MCH 28.1 (25.0-34.0) pg MCHC 33.9 (32.0-36.0) g/dL RDW Std Deviation 44.5 (36.4-46.3) fL RDW Coeff of Melquiades 14.7 H (11.5-14.5) % Plt Count 266 (130-400) K/uL MPV 10.5 (9.4-12.4) fL Immature Gran % (Auto) 0.4 % Neut % (Auto) 86.8 % Lymph % (Auto) 5.9 % [place] % (Auto) 6.3 % Eos % (Auto) 0.2 % Baso % (Auto) 0.4 % Neut # (Auto) 8.90 H (1.40-6.50) K/uL Lymph # (Auto) 0.61 L (1.20-3.40) K/uL [place] # (Auto) 0.65 H (0.11-0.59) K/uL Eos # (Auto) 0.02 (0.00-0.50) K/uL Baso # (Auto) 0.04 (0.00-0.20) K/uL Immature Gran # (Auto) 0.04 (0.01-0.20) K/uL Sodium 137 (136-145) mmol/L Potassium 4.3 (3.5-5.1) mmol/L Chloride 100 (98-107) mmol/L Carbon Dioxide 28 (21-32) mmol/L Anion Gap 9 (3-11) BUN 23 (6-23) mg/dl Creatinine 1.18 (0.6-1.2) mg/dl Est Cr Clr Drug Dosing Not Reportable Est GFR ( Amer) 49.7 ml/min Est GFR (Non-Af Amer) 42.9 ml/min BUN/Creatinine Ratio 19.5 (10-20) Glucose 107 H (70-99(Fasting)) mg/dl Lactate 1.4 (0.4-2.0) mmol/L Calcium 10.0 (8.6-10.3) mg/dl Total Bilirubin 1.6 H (0.2-1.0) mg/dl AST 43 H (13-39) U/L ALT 34 (7-52) U/L Alkaline Phosphatase 119 H (34-104) U/L Total Protein 8.1 (6.0-8.3) gm/dl Albumin 4.3 (3.4-5.0) gm/dl Globulin 3.8 (2.5-4.0) gm/dl Albumin/Globulin Ratio 1.1 (0.9-2) SARS-CoV-2 (PCR) NEGATIVE (Negative) Influenza Type A (PCR) Negative (Neg) Influenza Type B (PCR) Negative (Neg) RSV (RT-PCR) Negative (Neg) Administered Medications Discontinued Medications Vancomycin HCl 2,000 mg/ (Sodium Chloride) 540 mls @ 200 mls/hr IV NOW ONE Stop: 10/16/23 20:01 Last Infusion: 10/16/23 21:34 Dose: Infused Documented By: Admin: 10/16/23 18:46 Dose: 200 mls/hr Documented By: GALA Piperacillin Sod/Tazobactam Sod (Zosyn) 4.5 gm in 100 mls @ 200 mls/hr IV 1815 ONE Stop: 10/16/23 18:44 Last Infusion: 10/16/23 19:04 Dose: Infused Documented By: Admin: 10/16/23 18:35 Dose: 200 mls/hr Documented By: GALA Sodium Chloride (Nss) 500 mls @ 999 mls/hr IV .Q31M ONE Stop: 10/16/23 19:41 Last Infusion: 10/16/23 22:23 Dose: Infused Documented By: Admin: 10/16/23 21:49 Dose: 999 mls/hr Documented By: SEVEN Imaging Data Radiologist's Impression: Foot X-Ray 10/16/23 15:46 XR foot RT 2V CLINICAL HISTORY: Third toe infection TECHNIQUE: 2 views of the right foot were obtained. Comparison: None available at the time of this dictation. FINDINGS: No fractures are present. Degenerative changes are seen. Soft tissue swelling is seen about the foot. IMPRESSION: No radiographic evidence of osteomyelitis. If clinical concern remains, MRI is a more sensitive modality. ACT 112: Negative or not required by law. Electronically signed by: Jose Martin Dash M.D. 10/16/2023 4:37 PM Foot X-Ray 10/16/23 18:07 XR foot LT min 3V routine HISTORY: 83 years-old Female chronic wound chronic left foot pain COMPARISON: None TECHNIQUE: 3 views of the left foot FINDINGS: CHANGES of the midfoot and forefoot. The hardware appears intact. Demineralized appearance of the bones. No acute fracture, dislocation or osseous erosion. Moderate osteoarthritis with first metatarsal bunion. 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 Large calcaneal detail fights. IMPRESSION: 1. No acute osseous abnormality. 2. Degenerative and postoperative changes as above. ACT 112: Negative or not required by law. The above report was generated using voice recognition software. It may contain grammatical, syntax or spelling errors. Electronically signed by: Teo Hoffman M.D. 10/16/2023 6:47 PM Discharge Plan Visit Data Chief Complaint: Infection Stated Complaint: INFECTION IN RT MIDDLE TOE ED Provider: Ailyn Raymond Discharge Problem: Open toe wound, Wound of foot Discharge Instructions Interventions: ED Discharge Assessment Last Done: 10/16/23 22:24 Forms Stand Alone Forms: My [facility] [employer] Prescriptions Prescriptions: No Action levothyroxine 75 mcg Tablet 75 mcg PO QAM atorvastatin 40 mg Tablet 40 mg PO QAM potassium gluconate 595 mg (99 mg) Tablet Extended Release 650 mg PO QDD Rx Instructions: Per family, the patient has 650mg listed on her medication list. Eliquis 5 mg Tablet 5 mg PO BID acetaminophen 500 mg Tablet 500 mg PO QID PRN (Reason: Pain) clopidogrel [Plavix] 75 mg tablet 75 mg PO DAILY Qty: 30 0RF multivitamin Tablet 1 tab PO DAILY metoprolol succinate 50 mg tablet extended release 24 hr 50 mg PO QAM cyanocobalamin (vitamin B-12) [Vitamin B-12] 1,000 mcg Tablet 1,000 mcg PO DAILY calcium carbonate [Calcium 600] 600 mg calcium (1,500 mg) Tablet 600 mg PO DAILY gabapentin 800 mg tablet 800 mg PO TID pantoprazole 40 mg tablet,delayed release (DR/EC) 40 mg PO DAILY omega 3-vzg-yde-fish oil [Fish Oil] 1,200 (144-216) mg Capsule 1 cap PO BID cholecalciferol (vitamin D3) [Vitamin D3] 25 mcg (1,000 unit) Tablet,Chewable 25 mcg PO DAILY Probiotic 3 billion cell Capsule 3,000 mmu cells PO BID Rx Instructions: administer with a meal insulin degludec [Tresiba FlexTouch U-200] 200 unit/mL (3 mL) insulin pen 30 unit subcut BID Ozempic 0.25 mg or 0.5 mg (2 mg/3 mL) pen injector 0.25 mg SUBCUT WK Rx Instructions: Thursday Referrals Referrals: Moise Reed DO [Primary Care Provider] -
--- NOTE | 2023-10-16 16:38 | XRay Report ---
XR foot RT 2V CLINICAL HISTORY: Third toe infection TECHNIQUE: 2 views of the right foot were obtained. Comparison: None available at the time of this dictation. FINDINGS: No fractures are present. Degenerative changes are seen. Soft tissue swelling is seen about the foot. IMPRESSION: No radiographic evidence of osteomyelitis. If clinical concern remains, MRI is a more sensitive modal ity. ACT 112: Negative or not required by law. Electronically signed by: Jose Martin Dash M.D. 10/16/2023 4:37 PM
[2023-10-16 17:01] LABS: Influenza A virus by PCR Negative (Neg); Influenza B virus by PCR Negative (Neg); RSV by PCR Negative (Neg); SARS CoV2 RNA(COVID-19) Ceph NEGATIVE (Negative)
[2023-10-16] MEDS ORDERED: VANCOMYCIN HCL 2,000 MG in SODIUM CHLORIDE 0.9% 500 ML IV ONE (17:32)
[2023-10-16] MEDS ORDERED: VANCOMYCIN CONSULT ACTIVE PRN (17:32)
[2023-10-16] MEDS ORDERED: PIPERACILLIN/TAZOBACTAM 4.5 GM/100 ML BAG IV ONE (18:15)
--- NOTE | 2023-10-16 18:48 | XRay Report ---
XR foot LT min 3V routine HISTORY: 83 years-old Female chronic wound chronic left foot pain COMPARISON: None TECHNIQUE: 3 views of the left foot FINDINGS: CHANGES of the midfoot and forefoot. The hardware appears intact. Demineralized appearance of the bon es. No acute fracture, dislocation or osseous erosion. Moderate osteoarthritis with first metatarsal bunion. 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 Large calcaneal detail fights. IMPRESSION: 1. No acute osseous abnormality. 2. Degenerative and postoperative changes as above. ACT 112: Negative or not required by law. The above report was generated using voice recognition software. It may contain grammatical, syntax o r spelling errors. Electronically signed by: Teo Hoffman M.D. 10/16/2023 6:47 PM
[2023-10-16] MEDS ORDERED: SODIUM CHLORIDE 0.9% 500 ML IV ONE (19:11)
--- NOTE | 2023-10-16 20:02 | History & Physical Report ---
Date of Service October 16, 2023 Assessment & Plan (1) Open toe wound: Plan: Diabetic foot wound Admit to [facility] Patient presenting from home with infection of right third toe. In the ED, afebrile, no leukocytosis, BP stable. No signs of osteomyelitis on x-ray Discussed case with Dr. Granado -hannah plans for surgical intervention at this time, hold on MRI, continue with IV antibiotics and wound care S/p Vanco in the ED, continue with and add Zosyn Follow wound culture Given nonhealing wound on left foot, will check arterial studies (2) Wound of foot: Plan: History of left foot surgery 6 years ago with nonhealing wound Continue wound care and dressing changes (3) Diabetes mellitus, type 2: Plan: Unknown A1c, will check with a.m. labs Lantus and NovoLog per protocol while hospitalized (4) CAD (coronary artery disease): Plan: Appears stable, no reports of chest pain Continue statin, Plavix, beta-hyacinth (5) Paroxysmal atrial fibrillation: Plan: Rate controlled on metoprolol Anticoagulated Eliquis (6) Hypothyroidism: Plan: Chronic, stable Continue levothyroxine DVT PROPHYLAXIS On Eliquis Patient seen in collaboration with Dr. Olson. I spent a total of 75 minutes coordinating, documenting, and providing care for this patient excluding time spent in the performance of separately billed services. This included personally reviewing all current laboratories and imaging studies, medication reconciliation, outpatient chart review, and discussion with specialists. History of Present Illness Chief Complaint: Right third toe wound Primary Care Provider: Moise Reed DO 83-year-old female with PMH IDDM, CAD s/p CABG, paroxysmal atrial fibrillation anticoagulated on Eliquis, hypothyroidism, history of MRSA, history of bacteremia, history of left foot surgery with nonhealing wound, and other problems listed below who presents to the ED for evaluation of right third toe wound. History obtained from the patient and review of inpatient records from 2018. Patient reports she developed pain in her right third toe a few days ago and the toe started to become red and blackened on the end. She reports having chills and running a fever today. There has been some drainage from the right third toe. Patient has a chronic wound on her left foot from a prior surgery 6 years ago. Patient denies chest pain or shortness of breath. No lightheadedness, dizziness, diaphoresis, syncopal events. She denies abdominal pain, nausea, vomiting, diarrhea. No urinary symptoms. In the ED, patient is hemodynamically stable. She was evaluated by podiatry in the ED who is not recommending surgery at this time. Labs are unremarkable. Patient was given IVF and IV Vanco. Allergies Allergy/AdvReac Type Severity Reaction Status Date / Time metformin AdvReac Severe Diarrhea Unverified 10/16/23 17:47 Home Medications Medication Instructions Recorded Confirmed Type atorvastatin 40 mg tablet 40 mg PO QAM 12/30/18 10/16/23 History levothyroxine 75 mcg tablet 75 mcg PO QAM 12/30/18 10/16/23 History acetaminophen 500 mg tablet 500 mg PO QID PRN Pain 01/10/20 10/16/23 History apixaban 5 mg tablet (Eliquis) 5 mg PO BID 01/10/20 10/16/23 History potassium gluconate 595 mg (99 mg) 650 mg PO QDD 01/10/20 10/16/23 History tablet,extended release clopidogrel 75 mg tablet (Plavix) 75 mg PO DAILY #30 tabs 09/05/22 10/16/23 Rx calcium carbonate 600 mg calcium 600 mg PO DAILY 10/16/23 10/16/23 History (1,500 mg) tablet (Calcium) cholecalciferol (vitamin D3) 25 25 mcg PO DAILY 10/16/23 10/16/23 History mcg (1,000 unit) chewable tablet (Vitamin D3) cyanocobalamin (vitamin B-12) 1,000 mcg PO DAILY 10/16/23 10/16/23 History 1,000 mcg tablet (Vitamin B-12) gabapentin 800 mg tablet 800 mg PO TID 10/16/23 10/16/23 History insulin degludec 200 unit/mL (3 30 unit subcut BID 10/16/23 10/16/23 History mL) subcutaneous pen (Tresiba FlexTouch U-200 insulin) lactobacillus combination no.4 3 3,000 mmu cells PO BID 10/16/23 10/16/23 History billion cell capsule (Probiotic) metoprolol succinate 50 mg 50 mg PO QAM 10/16/23 10/16/23 History tablet,extended release 24 hr multivitamin 1 tab PO DAILY 10/16/23 10/16/23 History omega 9-nrn-who-fish oil 1,200 mg 1 cap PO BID 10/16/23 10/16/23 History (144 mg-216 mg) capsule (Fish Oil) pantoprazole 40 mg tablet,delayed 40 mg PO DAILY 10/16/23 10/16/23 History release semaglutide 0.25 mg or 0.5 mg (2 0.25 mg subcut WK 10/16/23 10/16/23 History mg/3 mL) subcutaneous pen injector (Ozempic) Past Med/Surg History Medical History Paroxysmal atrial fibrillation Hx of deep venous thrombosis 15 YR AGO CAD (coronary artery disease) S/P CABG + stent April 2018. Subsequent cath suggested a kink in the HERRERA graft. 6 weeks later cath confirmed nonfunctional segment of graft to the LAD. She is left with residual ischemic burden in her LAD and Dx territories. Osteoarthritis Chronic back pain Hiatal hernia GERD (gastroesophageal reflux disease) Hypothyroidism Diabetes mellitus, type 2 NIDDM. A1C 7.2% 03/2018. On anticoagulant therapy Per cardio 12/29 OK to hold Eliquis (and Plavix) for one week prior to lap sandy. 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 01/03/2019. History of cardiac cath APRIL 26, 2018. [facility]. History of heart artery stent APRIL 26, 2018. [facility]. History of coronary artery bypass graft X3 VESSELS (APRIL 25, 2018), plus stent placed to RCA. 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 Oslon's addendum for physical exam Results & Data Results & Data Vital Signs (Past 12 Hours) Vital Signs Temp Pulse Resp BP Pulse Ox O2 Del Method 10/16/23 19:00 74 18 94/45 L 93 Room Air 10/16/23 16:55 76 10/16/23 16:00 79 19 96 10/16/23 16:00 117/64 10/16/23 15:50 80 21 92 10/16/23 15:47 78 14 94 10/16/23 15:47 115/56 L 10/16/23 15:40 75 17 94 10/16/23 15:30 79 20 95 10/16/23 15:22 80 22 95 10/16/23 14:16 37.0 C 88 18 105/66 98 Room Air Laboratory Results Short CBC 10/16/23 Range/Units 14:33 WBC 10.26 (4.8-10.8) K/ul Hgb 14.7 (12.0-16.0) g/dl Hct 43.4 (37.0-47.0) % Plt Count 266 (130-400) K/uL BMP 10/16/23 14:33 Sodium 137 Potassium 4.3 Chloride 100 Carbon Dioxide 28 BUN 23 Creatinine 1.18 Glucose 107 H Calcium 10.0 Liver Function 10/16/23 Range/Units 14:33 Total Bilirubin 1.6 H (0.2-1.0) mg/dl AST 43 H (13-39) U/L ALT 34 (7-52) U/L Alkaline Phosphatase 119 H (34-104) U/L Albumin 4.3 (3.4-5.0) gm/dl Diagnostic Findings Foot X-Ray 10/16/23 15:46 XR foot RT 2V CLINICAL HISTORY: Third toe infection TECHNIQUE: 2 views of the right foot were obtained. Comparison: None available at the time of this dictation. FINDINGS: No fractures are present. Degenerative changes are seen. Soft tissue swelling is seen about the foot. IMPRESSION: No radiographic evidence of osteomyelitis. If clinical concern remains, MRI is a more sensitive modality. ACT 112: Negative or not required by law. Electronically signed by: Jose Martin Dash M.D. 10/16/2023 4:37 PM Foot X-Ray 10/16/23 18:07 XR foot LT min 3V routine HISTORY: 83 years-old Female chronic wound chronic left foot pain COMPARISON: None TECHNIQUE: 3 views of the left foot FINDINGS: CHANGES of the midfoot and forefoot. The hardware appears intact. Demineralized appearance of the bones. No acute fracture, dislocation or osseous erosion. Moderate osteoarthritis with first metatarsal bunion. 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 Large calcaneal detail fights. IMPRESSION: 1. No acute osseous abnormality. 2. Degenerative and postoperative changes as above. ACT 112: Negative or not required by law. The above report was generated using voice recognition software. It may contain grammatical, syntax or spelling errors. Electronically signed by: Teo Hoffman M.D. 10/16/2023 6:47 PM Code Status & VTE Plan VTE Prophylaxis Plan VTE Prophylaxis will be ordered: No Supervising Physician Co-Signing Physician Notes Patient is an 83-year-old female with history of paroxysmal A-fib on Eliquis, coronary artery disease, diabetes mellitus with peripheral neuropathy and other medical problems presents with history of right third toe wound associated with some drainage, pain and discoloration. Patient also states having left chronic nonhealing foot wound which drains as well. She noticed to have fever, chills today. Patient is a poor historian and most of the history is obtained from patient's family at bedside. She was evaluated by podiatry while in ED and had right middle toe minimal debridement at bedside. I personally reviewed blood work, imaging studies. Currently no signs of sepsis. Physical Exam: Vitals signs as noted above General Appearance:Obese, no apparent distress Head: normocephalic, Atraumatic Eyes: normal inspection, EOMI Neck: supple, Trachea midline Respiratory/Chest: Normal breath sounds, CTA, No accessory muscle use Cardiovascular: S1, S2, No murmur Abdomen/GI:Soft, Non tender, Bowel sounds present Extremities/Musculoskeletal:normal inspection, Trace pedal edema, + left foot, right middle toe dressing Neurologic/Psych:AAOX3, grossly no focal neurological deficits Skin: normal color, warm Diabetic right third toe infection Chronic diabetic left nonhealing foot wound Currently no signs of sepsis Blood, wound cultures obtained Started on broad-spectrum antibiotics Podiatry consulted Continue wound care Currently no plan for surgical intervention as per podiatry Agree with checking arterial Doppler I personally reviewed the record. Patient is interviewed and examined at [facility]. Patient's care is coordinated with Brinda Padilla NP. Please refer to the documentation above for details of patient's presentation and for discussion of other issues.
--- NOTE | 2023-10-16 21:09 | Orthopedic Consultation ---
Date of Consultation October 16, 2023 Assessment & Plan (1) Wound of foot: Patient seen in Pod C C09 in [facility] Emergency department for right third toe and left foot ulcers. Reviewed X-ray images and X-ray findings. A thorough evaluation of wounds was done in detail. Wound does not probe to bone. After evaluation it was determine wound would be sharply debrided. Sharp, excisional, debridement with out incident. See procedure noted below. Wound cultures taken of right and left foot wounds. Wounds cleansed with Betadine followed by normal saline. Dry, sterile, dressing applied. Will continue to follow while in house. Today's procedure is an excisional debridement of deep tissue from right foot ulcer. There is a moderate amount of serosanguineous exudate draining from the ulcers. Necrotic or devitalized tissue is estimated to be present in approximately 80% of the pressure ulcer bed. The ulcer has been exposed full-thickness tissue. I have informed the patient of the risks and benefit of this procedure and they have had the opportunity to ask questions. Appropriate consent has been obtain ed. The patient refused site marking. The area was prepped and draped in usual aseptic manner. The procedure was performed and a clean field. I debrided the wound sharply with a sterile #15 blade and necrotic tissue was excised down to and including subcutaneous tissue. Bleeding was minimal and hemostasis was achieved using pressure. The patient tolerated procedure and anesthesia well. The patient was educated regarding the signs and symptoms of infection, such as purulent drainage, edema, cellulitis, and significant pain, and to notify healthcare personnel for any of these things occur. Postprocedure no increased pain. (2) Open toe wound: (3) Diabetes mellitus, type 2: History of Present Illness History of Present Illness Melida is a pleasant 83-year-old female seen at bedside POD C C09 at [facility] Emergency Room. Patient has a past medical history IDDM, CAD s/p CABG, paroxysmal atrial fibrillation anticoagulated on Eliquis, hypothyroidism, history of MRSA, history of bacteremia, history of left foot surgery with nonhealing wound, and other problems listed below. Patient seen with daughter and who help with history and care. Patient complains of right third toe wound. She reports she developed pain in her right third toe a few days ago and the toe started to become red and blackened on the end with some drainage. Patient has a chronic wound on her left foot from a prior surgery [address] Cordero. X-rays taken show no osseous involvement. Allergies Allergy/AdvReac Type Severity Reaction Status Date / Time metformin AdvReac Severe Diarrhea Unverified 10/16/23 17:47 Home Medications Medication Instructions Recorded Confirmed Type atorvastatin 40 mg tablet 40 mg PO QAM 12/30/18 10/16/23 History levothyroxine 75 mcg tablet 75 mcg PO QAM 12/30/18 10/16/23 History acetaminophen 500 mg tablet 500 mg PO QID PRN Pain 01/10/20 10/16/23 History apixaban 5 mg tablet (Eliquis) 5 mg PO BID 01/10/20 10/16/23 History potassium gluconate 595 mg (99 mg) 650 mg PO QDD 01/10/20 10/16/23 History tablet,extended release clopidogrel 75 mg tablet (Plavix) 75 mg PO DAILY #30 tabs 09/05/22 10/16/23 Rx calcium carbonate 600 mg calcium 600 mg PO DAILY 10/16/23 10/16/23 History (1,500 mg) tablet (Calcium) cholecalciferol (vitamin D3) 25 25 mcg PO DAILY 10/16/23 10/16/23 History mcg (1,000 unit) chewable tablet (Vitamin D3) cyanocobalamin (vitamin B-12) 1,000 mcg PO DAILY 10/16/23 10/16/23 History 1,000 mcg tablet (Vitamin B-12) gabapentin 800 mg tablet 800 mg PO TID 10/16/23 10/16/23 History insulin degludec 200 unit/mL (3 30 unit subcut BID 10/16/23 10/16/23 History mL) subcutaneous pen (Tresiba FlexTouch U-200 insulin) lactobacillus combination no.4 3 3,000 mmu cells PO BID 10/16/23 10/16/23 His tory billion cell capsule (Probiotic) metoprolol succinate 50 mg 50 mg PO QAM 10/16/23 10/16/23 History tablet,extended release 24 hr multivitamin 1 tab PO DAILY 10/16/23 10/16/23 History omega 4-hjw-kcw-fish oil 1,200 mg 1 cap PO BID 10/16/23 10/16/23 History (144 mg-216 mg) capsule (Fish Oil) pantoprazole 40 mg tablet,delayed 40 mg PO DAILY 10/16/23 10/16/23 History release semaglutide 0.25 mg or 0.5 mg (2 0.25 mg subcut WK 10/16/23 10/16/23 History mg/3 mL) subcutaneous pen injector (Ozempic) Patient History Medical History Paroxysmal atrial fibrillation Hx of deep venous thrombosis 15 YR AGO CAD (coronary artery disease) S/P CABG + stent April 2018. Subsequent cath suggested a kink in the HERRERA graft. 6 weeks later cath confirmed nonfunctional segment of graft to the LAD. She is left with residual ischemic burden in her LAD and Dx territories. Osteoarthritis Chronic back pain Hiatal hernia GERD (gastroesophageal reflux disease) Hypothyroidism Diabetes mellitus, type 2 NIDDM. A1C 7.2% 03/2018. On anticoagulant therapy Per cardio 12/29 OK to hold Eliquis (and Plavix) for one week prior to lap sandy. 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 01/03/2019. History of cardiac cath APRIL 26, 2018. [facility]. History of heart artery stent APRIL 26, 2018. [facility]. History of coronary artery bypass graft X3 VESSELS (APRIL 25, 2018), plus stent placed to RCA. Family History Brother Family history of diabetes mellitus Social History Smoking Status: Never smoker Second Hand Exposure: No; Do You Dip or Chew Tobacco: No; Hx Alcohol Use: No Hx Substance Use: No Preferred Language: Emirati Communication Ability: Effective Extension Professor Required: No Beliefs That Will Affect Care: None Current Living Situation: Spouse Feels Safe at Home: Yes Assistive Devices: Cane, Glasses and Special Shoe Review of Systems Review of Systems: All systems reviewed & are unremarkable except as noted in HPI & below Physical Exam Constitutional: well developed, well nourished, cooperative and comfortable Eyes: normal visual phillips by confrontation Neck: normal visual inspection and trachea midline Respiratory: normal respiratory effort Cardiovascular: Rate/Rhythm: regular rate and regular rhythm Vessels: posterior tibial pulses present and dorsalis pedis pulses present Musculoskeletal: Extremities: extremities normal to inspection Skin: + ulcer (Right 3rd toe full thickness, L eft sub met 1 full thickness) Neurologic: moves all extremities (Absent epicritic sensation) Psychiatric: Orientation: alert and oriented x 3 Results & Data Vital Signs (Past 12 Hours) Vital Signs Temp Pulse Resp BP Pulse Ox O2 Del Method 10/16/23 20:20 80 24 155/66 H 94 Room Air 10/16/23 19:30 75 23 104/69 93 Room Air 10/16/23 19:15 73 15 97/64 L 94 Room Air 10/16/23 19:00 74 18 94/45 L 93 Room Air 10/16/23 16:55 76 10/16/23 16:00 79 19 96 10/16/23 16:00 117/64 10/16/23 15:50 80 21 92 10/16/23 15:47 78 14 94 10/16/23 15:47 115/56 L 10/16/23 15:40 75 17 94 10/16/23 15:30 79 20 95 10/16/23 15:22 80 22 95 10/16/23 14:16 37.0 C 88 18 105/66 98 Room Air Diagnostic Findings [place], [place] [phone] XRay Report Patient: BROWN DONIS Admit Date: 10/16/23 MR#: [id number] Address1: [address] [place] [address] Acct ID:[id number] Address2: Date: 1940 [facility] Zip: [place] [address] Age: 83 Location: ED Sex: F Room/Bed: Att Phy: Diagnosis: INFECTION IN RT MIDDLE TOE Patito Phy: Moise Reed DO Service Date: 10/16/23 Fam Phy: Interpreting Phy: Jose Martin Agueroit Phy: Ordering Phy: Ailyn Raymond MD cc: ~ XR foot RT 2V CLINICAL HISTORY: Third toe infection TECHNIQUE: 2 views of the right foot were obtained. Comparison: None available at the time of this dictation. FINDINGS: No fractures are present. Degenerative changes are seen. Soft tissue swelling is seen about the foot. IMPRESSION: No radiographic evidence of osteomyelitis. If clinical concern remains, MRI is a more sensitive modality. ACT 112: Negative or not required by law. Electronically signed by: Jose Martin Dash M.D. 10/16/2023 4:37 PM [place], [place] [phone] XRay Report Patient: BROWN DONIS Admit Date: 10/16/23 MR#: [id number] Address1: [address] [place] [address] Acct ID:[id number] Address2: Date: 1940 [facility] Zip: [place] [id number] Age: 83 Location: ED Sex: F Room/Bed: Att Phy: Diagnosis: INFECTION IN RT MIDDLE TOE Patito Phy: Moise Reed, Service Date: 10/16/23 Fam Phy: Interpreting Phy: Teo HoffmanAdmit Phy: Ordering Phy: Brinda Padilla cc: ~ XR foot LT min 3V routine HISTORY: 83 years-old Female chronic wound chronic left foot pain COMPARISON: None TECHNIQUE: 3 views of the left foot FINDINGS: CHANGES of the midfoot and forefoot. The hardware appears intact. Demineralized appearance of the bones. No acute fracture, dislocation or osseous erosion. Moderate osteoarthritis with first metatarsal bunion. 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 Large calcaneal detail fights. IMPRESSION: 1. No acute osseous abnormality. 2. Degenerative and postoperative changes as above. ACT 112: Negative or not required by law. The above report was generated using voice recognition software. It may contain grammatical, syntax or spelling errors. Electronically signed by: Teo Hoffman M.D. 10/16/2023 6:47 PM
[2023-10-16] MEDS ORDERED: GLUCOSE 10 TAB/TUBE PO PRN (23:07)
[2023-10-16] MEDS ORDERED: GLUCOSE 40% GEL 15 GM TUBE PO PRN (23:07)
[2023-10-16] MEDS ORDERED: PHARMACY GLYCEMIC MGMT CONSULT PRN (23:07)
[2023-10-16] MEDS ORDERED: GLUCAGON FOR INJ 1 MG VIAL SQ PRN (23:07)
[2023-10-16] MEDS ORDERED: LANTUS PER UNIT CHARGE SQ SCH (23:07)
[2023-10-16] MEDS ORDERED: DEXTROSE 50% 50 ML SYRINGE IV PRN (23:07)
[2023-10-16] MEDS ORDERED: CARBOHYDRATES FOR HYPOGLYCEMIA PO PRN (23:07)
[2023-10-17] MEDS: PROMETHAZINE HCL 6.25 MG in SODIUM CHLORIDE 0.9% 50 ML IV PRN ×3 (00:30→17:09)
--- OUTSIDE RECORDS SUMMARY | 2023-10-17 00:39 | External Medical Summary | Continuity of Care Document ---
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 [phone] ISABELA HARDIN DO Care Team Information Rec eiver [phone] Moise Reed DO Primary Care Physician Problems Active Problems Provider Date Hypothyroidism Onset: 5 Gastroesophageal reflux disease Onset: Peripheral vascular disease Onse t: Atherosclerosis of coronary artery without angina pectoris Kyle Cervantes MD Onset: 06/19/2021 Pure hypercholesterolemia Kyle Cervantes MD Ons et: 06/19/2021 Paroxysmal atrial fibrillation Billy Whittaker Onset: 06/19/2021 Diabetes mellitus Kyle Cervantes MD Onset: 02/2021 Essential hypertension Kyle Cervantes MD Onset: 06/21/2021 Long-term current use of anticoagulant Kyle flowers MD Onset: 06/21/2021 Body mass index 30+ - obesity Kyle Cervantes MD Onset: 01/03/2022 Dyslipidemia Enrique Sousa MD Onset: 01/23/20 22 Viremia Barbie Paulino PA-C Onset: Sleep apnea Kyle Cervantes MD Onset: 2022 Social History Type Date Description Comments Sex Unknown ETOH Use 08/07/2023 Never used alcohol Tobacco Use Reviewed: 08/07/23 Patient has never smok ed Recreational Drug Use 08/07/2023 Never Used Drugs Smoking Status Reviewed: 08/07/23 Patient has never sm oked Allergies and adverse reactions Active Allergies Criticality Reaction | Severity Comments Date Meloxicam Unable to assess criticality Confusion 05/16/2021 Metformin Unable to assess criticality Diarrhea 05/16/2021 Medications Active Medications SIG Qnty Indications Order ing Provider Date Metoprolol Succinate ER50mg Tablets ER 24HR 1 tab by mouth once a day 90tabs YAO Cervantes 09/03/2023 Onetouch Delica Plus Lancets Extra Fine 33GPlus 33G Misc use twice a day; dx: e11.9 200units Moise Reed, DO 09/01/2023 Higdwkhp739573Scnt/ML Suspension swish orally twice a day for 7 days 60ml B37.0 YAO Cervantes 04/24/2023 Ozempic (0.25 Or 0.5 MG/Dose)2mg/3ML Solution Pen-Inject 0.5 mg subcut every week 3ml Moise Reed, DO 04/06/2023 Synvisc Okf99yg/6ML Soln Prefill Syringe one syringe injected intra-articular in to right knee. dx m17.11 6ml Isabela Espenshade, DO 03/13/2023 Rqjxnkamka816er Tablets 1 by mouth three times a day 90tabs Moise Reed, DO 12/15/2022 Meclizine KME21tn Tablets 1 tab by mouth three times a day as needed 60tabs R42 Moise Reed, DO 04/02/2022 Tresiba Ifpsmmeel206Olfc/ML Solution Pen-Inject inject 24 units am and 32 units pm 9ml Moise Reed, DO 04/02/2022 Onetouch UltraStrips test twice daily dx e11.9 100units Moise Reed, DO 03/18/2022 Levothyroxine Kleztg24gwe Tablets 1 tab by mouth every day 90tabs Moise Reed, DO 12/23/[address] 1 cap by mouth every day 90tabs Moise Reed, DO 06/21/2021 Amoxicillin/Clavulana te Umuxyujyd850-544iv Tablets 1 tab by mouth three times a day Unknown Adwozdtqdlo7sj Tablets 1 tab by mouth three times a day as needed, may take 1 extra tablet daily according to blood sugar readings. 100tabs YAO Cervantes Atorvastatin Neqvgkb24ac Tablets 1 tab by mouth every night 90tabs Kyle Cervantes MD Calcium 600 1 tab by mouth every day Unknown Nipton-3 Krill Fvh107vt Capsules 2 caps by mouth every day Unknown Vitamin D475frg (1000 Ut) Capsules 1 cap by mouth every day 90caps Unknown Multivitamin 1 tab by mouth every day Unknown Vitamin B-550593mdb Tablets Sub 1 tab by mouth every day Unknown Probiotic 1 cap by mouth every day Unknown Nitroglycerin0.4mg Tablets Sub 1 tablet at first sign of attack; may repeat every 5 min up to 3 tabs, if no relief seek medical help. 25tabs Unknown Potassium Fdspzmsmi719(99K) mg Tablets 1 tab by mouth every day Unknown Uhtiths7th Tablets 1 tab by mouth twice a day 180tabs Kyle Cervantes MD Clopidogrel Hluzccumo60vt Tablets 1 tab by mouth every day 30tabs Moise Reed DO History Medications Vancomycin TXY918un Capsules 1 cap by mouth bid. 56caps YAO Cervantes 05/29/2023 - 07/28/2023 Stwvkeznhyrjj264qc Tablets take 1 tab by mouth three times a day 30tabs R19.7 YAO Cervantes 05/29/2023 - 07/28/2023 Yelzmsow898769Vywd Tablets 1 take 1 tab three time a day X B37.0 YAO Cervantes 04/24/2023 - 04/24/2023 Medications Administered in Office Medication SIG Qnty Indications Ordering Provider Date Injection Betamethasone Acetate & Sodium Phosphate 3 MG Of EachInjection Satish Oviedo 03/11/2023 Immunizations CPT Code Status Date Vaccine Lot # [id number] Given 10/04/2021 Influenza Virus Vaccine H igh Dose Quadrivalent 95296 Given 07/07/2021 Moderna (Covid- 19) vaccine, mRNA, LNP-S, PF, 100 mcg/ 0.5 mL 01523 Given 10/18/2020 Influenza Virus Vaccine H igh Dose Quadrivalent 46612 Given 09/08/2018 Prevnar 13 Pneu mococcal Conjugate Vac 13 Valent For Im Use 02784 Given 08/17/2018 Influenza Virus Vaccine, Split Virus, Preservative Free Im 0.5ML 19571 Given 08/16/2017 Influenza Virus Vaccine, Split Virus, Preservative Free Im 0.5ML 55508 Given 10/03/2013 Pneumo 23 Pneumococcal Va ccine 2Yrs Or Older Vital Signs Date Vital Result Comment 08/07/2023 2:06pm Height 64 inches 5'4" Weight 181.00 lb Weight 82.102 kg BMI (Body Mass Index) 31.1 kg/m2 BP Systolic 128 mmHg Right Arm BP Diastolic 52 mmHg Right Arm Body Temperature 97.2 F Temporal Heart Rate 83 /min Pulse Ox Respiratory Rate 18 /min O2 % BldC Oximetry 95 % Room Air 07/28/2023 11:29am Height 64 inches 5'4" Weight 181.31 lb Weight 82.243 kg BMI (Body Mass Index) 31.1 kg/m2 BP Systolic 110 mmHg BP Diastolic 68 mmHg Body Temperature 97.2 F Heart Rate 80 /min Respiratory Rate 16 /min O2 % BldC Oximetry 97 % Results Test Acquired Date Facility Test Result H/L Range N ote Comprehensive Metabolic Panel 07/28/2023 [facility] [address] [place] [address] [phone] Sodium 142 mmol/L Normal 136-145 Potassium 4.3 mmol/L Normal 3.5-5.1 Chloride 108 mmol/L High 98-107 Carbon Dioxide 31 mmol/L Normal 21-32 [facility] Anion Gap 3.0 mmol/L Normal 1.0-15.0 Blood Urea Nitrogen 18 mg/dL Normal 7-18 Creatinine,Serum 1.26 mg/dL High 0.55-1.02 GFR 41 1 BUN/Creatinine Ratio 14.3 Normal 10.0-20.00 Glucose 150 mg/dL High 70-99 Osmolality,Calculated 287 Normal 275-295 Calcium 9.5 mg/dL Normal 8.5-10.1 Aspartate Aminotrans(Sgot) 55 U/L High 15-37 Alanine Aminotran (SGPT) 63 U/L High 13-56 Alkaline Phosphatase 150 U/L High 45-117 Bilirubin,Total 0.54 mg/dL Normal 0.20-1.00 Total Protein 7.6 g/dL Normal 6.40-8.20 Albumin 3.5 g/dL Normal 3.4-5.0 Globulin 4.1 Ratio Normal 1.3-4.9 Albumin/Globulin Ratio 0.9 Ratio Low 1.2-2.3 Glyco Panel 07/28/2023 [facility] [address] [place] [address] [phone] Hemoglobin A1c 7.0 % High 3.8-5.6 Estimated Average Glucose 154 mg/dL High 70-126 2 CBC W/ Auto Diff 07/28/2023 [facility] [address] [place] [address] [phone] White Blood Count 7.4 10^3/uL Normal 4.1-10.2 Red Blood Count 5.15 10^6/uL Normal 3.80-5.20 Hemoglobin 14.2 g/dL Normal 11.5-15.5 Hematocrit 44.4 % Normal 35-46 Mean Corpuscular Volume 86.2 fL Normal 82.0-98.0 Mean Corpuscular Hemoglobin 27.6 pg Normal 27.0-34. 0 Mean Corpuscular Hgb Conc 32.0 g/dL Normal 31.0-36.0 RDW-SD 44.6 fL Normal 37-49 RDW-CV 14.1 % Normal 11.8-14.8 Platelet Count 246 10^3/uL Normal 150-360 Mean Platelet Volume 10.5 fL Normal 9.4-12.3 Neutrophils %(Auto) 61.1 % Normal 42-75 Lymphocytes % (Auto) 28.0 % Normal 14-42 Monocytes % (Auto) 7.3 % Normal 4-13 Eosinophils % (Auto) 2.4 % Normal 0-6 Basophils % (Auto) 0.8 % Normal 0-2 Immature Granulocytes % (Auto) 0.4 % Normal 0.0-0 .7 NRBC% (Auto) 0.0 /100WBC Normal 0.0-0.2 Neutrophils # (Auto) 4.5 103uL Normal 1.8-6.6 Lymphocytes # (Auto) 2.1 10^3/uL Normal 1.0-3.1 Monocytes # (Auto) 0.5 103uL Normal 0.0-1.0 Eosinophils # (Auto) 0.2 103uL Normal 0.0-0.5 Basophils # (Auto) 0.1 10^3/uL Normal 0.0-0.1 Immature Granulocytes # (Auto) 0.0 10^3/uL Normal 0.0- 0.0 NRBC # (Auto) 0.000 10^3/uL Normal 0.000-0.012 Laboratory test finding 06/02/[address] [id number] [phone] Clostridium Difficile Toxin NEGATIVE Negative 3 Laboratory test finding 05/13/[address] [address] [phone] Glucose-Accuc heck 252 mg/dL High 70-99 Laboratory test finding 05/13/[address] [address] [phone] Glucose-Accuc heck 169 mg/dL High 70-99 CBC W/ Auto Diff 05/13/[address] [address] [phone] White Blood Count 5.9 10^3/uL Normal 4.1-10.2 Red Blood Count 4.40 10^6/uL Normal 3.80-5.20 Hemoglobin 12.7 g/dL Normal 11.5-15.5 Hematocrit 37.8 % Normal 35-46 Mean Corpuscular Volume 85.9 fL Normal 82.0-98.0 Mean Corpuscular Hemoglobin 28.9 pg Normal 27.0-34. 0 Mean Corpuscular Hgb Conc 33.6 g/dL Normal 31.0-36.0 RDW-SD 46.1 fL Normal 37-49 RDW-CV 14.5 % Normal 11.8-14.8 Platelet Count 232 10^3/uL Normal 150-360 Mean Platelet Volume 10.3 fL Normal 9.4-12.3 Neutrophils %(Auto) 53.8 % Normal 42-75 Lymphocytes % (Auto) 34.0 % Normal 14-42 Monocytes % (Auto) 8.6 % Normal 4-13 Eosinophils % (Auto) 2.0 % Normal 0-6 Basophils % (Auto) 0.8 % Normal 0-2 Immature Granulocytes % (Auto) 0.8 % High 0.0-0 .7 NRBC% (Auto) 0.0 /100WBC Normal 0.0-0.2 Neutrophils # (Auto) 3.2 103uL Normal 1.8-6.6 Lymphocytes # (Auto) 2.0 10^3/uL Normal 1.0-3.1 Monocytes # (Auto) 0.5 103uL Normal 0.0-1.0 Eosinophils # (Auto) 0.1 103uL Normal 0.0-0.5 Basophils # (Auto) 0.1 10^3/uL Normal 0.0-0.1 Immature Granulocytes # (Auto) 0.1 10^3/uL High 0.0- 0.0 NRBC # (Auto) 0.000 10^3/uL Normal 0.000-0.012 Comprehensive Metabolic Panel 05/13/[address] [address] [phone] Sodium 138 mmol/L Normal 136-145 Potassium 4.0 mmol/L Normal 3.5-5.1 Chloride 110 mmol/L High 98-107 Carbon Dioxide 26 mmol/L Normal 21-32 [facility] Anion Gap 2.0 mmol/L Normal 1.0-15.0 Blood Urea Nitrogen 24 mg/dL High 7-18 Creatinine,Serum 1.01 mg/dL Normal 0.55-1.02 GFR 52 4 BUN/Creatinine Ratio 23.8 High 10.0-20.00 Glucose 162 mg/dL High 70-99 Osmolality,Calculated 284 Normal 275-295 Calcium 9.2 mg/dL Normal 8.5-10.1 Aspartate Aminotrans(Sgot) 43 U/L High 15-37 Alanine Aminotran (SGPT) 50 U/L Normal 13-56 Alkaline Phosphatase 101 U/L Normal 45-117 Bilirubin,Total 0.41 mg/dL Normal 0.20-1.00 Total Protein 7.1 g/dL Normal 6.40-8.20 Albumin 3.0 g/dL Low 3.4-5.0 Globulin 4.1 Ratio Normal 1.3-4.9 Albumin/Globulin Ratio 0.7 Ratio Low 1.2-2.3 Laboratory test finding 05/13/[address] [address] [phone] Magnesium 2.0 mg/dL Normal 1.8-2.4 CBC W/ Auto Diff 05/12/[address] [address] [phone] White Blood Count 4.9 10^3/uL Normal 4.1-10.2 Red Blood Count 4.18 10^6/uL Normal 3.80-5.20 Hemoglobin 12.1 g/dL Normal 11.5-15.5 Hematocrit 36.0 % Normal 35-46 Mean Corpuscular Volume 86.1 fL Normal 82.0-98.0 Mean Corpuscular Hemoglobin 28.9 pg Normal 27.0-34. 0 Mean Corpuscular Hgb Conc 33.6 g/dL Normal 31.0-36.0 RDW-SD 46.5 fL Normal 37-49 RDW-CV 14.7 % Normal 11.8-14.8 Platelet Count 200 10^3/uL Normal 150-360 Mean Platelet Volume 10.4 fL Normal 9.4-12.3 Neutrophils %(Auto) 49.3 % Normal 42-75 Lymphocytes % (Auto) 40.8 % Normal 14-42 Monocytes % (Auto) 7.1 % Normal 4-13 Eosinophils % (Auto) 2.0 % Normal 0-6 Basophils % (Auto) 0.6 % Normal 0-2 Immature Granulocytes % (Auto) 0.2 % Normal 0.0-0 .7 NRBC% (Auto) 0.0 /100WBC Normal 0.0-0.2 Neutrophils # (Auto) 2.4 103uL Normal 1.8-6.6 Lymphocytes # (Auto) 2.0 10^3/uL Normal 1.0-3.1 Monocytes # (Auto) 0.4 103uL Normal 0.0-1.0 Eosinophils # (Auto) 0.1 103uL Normal 0.0-0.5 Basophils # (Auto) 0.0 10^3/uL Normal 0.0-0.1 Immature Granulocytes # (Auto) 0.0 10^3/uL Normal 0.0- 0.0 NRBC # (Auto) 0.000 10^3/uL Normal 0.000-0.012 Laboratory test finding 05/12/[address] [address] [phone] Magnesium 1.6 mg/dL Low 1.8-2.4 Comprehensive Metabolic Panel 05/12/2023 [facility] [address] [place] [address] [phone] Sodium 138 mmol/L Normal 136-145 Potassium 3.9 mmol/L Normal 3.5-5.1 Chloride 110 mmol/L High 98-107 Carbon Dioxide 27 mmol/L Normal 21-32 [facility] Anion Gap 1.0 mmol/L Normal 1.0-15.0 Blood Urea Nitrogen 23 mg/dL High 7-18 Creatinine,Serum 0.93 mg/dL Normal 0.55-1.02 GFR 58 5 BUN/Creatinine Ratio 24.6 High 10.0-20.00 Glucose 165 mg/dL High 70-99 Osmolality,Calculated 283 Normal 275-295 Calcium 9.2 mg/dL Normal 8.5-10.1 Aspartate Aminotrans(Sgot) 49 U/L High 15-37 Alanine Aminotran (SGPT) 51 U/L Normal 13-56 Alkaline Phosphatase 102 U/L Normal 45-117 Bilirubin,Total 0.46 mg/dL Normal 0.20-1.00 Total Protein 6.8 g/dL Normal 6.40-8.20 Albumin 2.9 g/dL Low 3.4-5.0 Globulin 3.9 Ratio Normal 1.3-4.9 Albumin/Globulin Ratio 0.7 Ratio Low 1.2-2.3 Laboratory test finding 05/12/2023 [facility] [address] [place], [place] [id number] [phone] Glucose-Accucheck 182 mg/dL High 70-99 6 Laboratory test finding 05/12/[address] [address] [phone] Glucose-Accucheck 128 mg/dL High 70-99 Laboratory test finding 05/12/2023 [facility] [address] [place] [address] [phone] Glucose-Accucheck 146 mg/dL High 70-99 7 Laboratory test finding 05/11/2023 [facility] [address] [place] [address] [phone] Vancomycin,Peak 32.5 ug/mL Normal 20.0-40 .0 Laboratory test finding 05/11/[address] [phone] Glucose-Accucheck 141 mg/dL High 70-99 8 Laboratory test finding 05/11/[address] [phone] Vancomycin,Trough 10.1 ug/mL Normal 10.0-20 .0 Laboratory test finding 05/11/[address] [phone] Glucose-Accucheck 171 mg/dL High 70-99 9 Laboratory test finding 05/11/[address] [phone] Glucose-Accucheck 195 mg/dL High 70-99 10 Laboratory test finding 05/11/[address] [address] [phone] Glucose-Accucheck 146 mg/dL High 70-99 11 Laboratory test finding 05/10/[address] [phone] Glucose-Accucheck 165 mg/dL High 70-99 12 Basic Metabolic Panel 05/10/[address] [phone] Sodium 141 mmol/L Normal 136-145 Potassium 3.8 mmol/L Normal 3.5-5.1 Chloride 112 mmol/L High 98-107 Carbon Dioxide 26 mmol/L Normal 21-32 [facility] Anion Gap 3.0 mmol/L Normal 1.0-15.0 Blood Urea Nitrogen 14 mg/dL Normal 7-18 Creatinine,Serum 0.95 mg/dL Normal 0.55-1.02 GFR 56 13 BUN/Creatinine Ratio 14.7 Normal 10.0-20.00 Glucose 86 mg/dL Normal 70-99 Osmolality,Calculated 281 Normal 275-295 Calcium 9.0 mg/dL Normal 8.5-10.1 CBC W/ Auto Diff 05/10/[address] [address] [phone] White Blood Count 5.2 10^3/uL Normal 4.1-10.2 Red Blood Count 4.43 10^6/uL Normal 3.80-5.20 Hemoglobin 12.8 g/dL Normal 11.5-15.5 Hematocrit 38.5 % Normal 35-46 Mean Corpuscular Volume 86.9 fL Normal 82.0-98.0 Mean Corpuscular Hemoglobin 28.9 pg Normal 27.0-34. 0 Mean Corpuscular Hgb Conc 33.2 g/dL Normal 31.0-36.0 RDW-SD 49.1 fL High 37-49 RDW-CV 15.3 % High 11.8-14.8 Platelet Count 171 10^3/uL Normal 150-360 Mean Platelet Volume 10.4 fL Normal 9.4-12.3 Neutrophils %(Auto) 49.7 % Normal 42-75 Lymphocytes % (Auto) 33.2 % Normal 14-42 Monocytes % (Auto) 13.2 % High 4-13 Eosinophils % (Auto) 2.5 % Normal 0-6 Basophils % (Auto) 1.0 % Normal 0-2 Immature Granulocytes % (Auto) 0.4 % Normal 0.0-0 .7 NRBC% (Auto) 0.0 /100WBC Normal 0.0-0.2 Neutrophils # (Auto) 2.6 103uL Normal 1.8-6.6 Lymphocytes # (Auto) 1.7 10^3/uL Normal 1.0-3.1 Monocytes # (Auto) 0.7 103uL Normal 0.0-1.0 Eosinophils # (Auto) 0.1 103uL Normal 0.0-0.5 Basophils # (Auto) 0.1 10^3/uL Normal 0.0-0.1 Immature Granulocytes # (Auto) 0.0 10^3/uL Normal 0.0- 0.0 NRBC # (Auto) 0.000 10^3/uL Normal 0.000-0.012 Laboratory test finding 05/10/[address] [address] [phone] Glucose-Accucheck 88 mg/dL Normal 70-99 Laboratory test finding 05/10/[address] [address] [phone] Glucose-Accucheck 183 mg/dL High 70-99 14 Laboratory test finding 05/10/[address] [address] [phone] Glucose-Accucheck 176 mg/dL High 70-99 15 Laboratory test finding 05/10/[address] [address] [phone] MRSA Screen (Molecular) NEGATIVE Negative Laboratory test finding 05/09/[address] [address] [phone] Glucose-Accucheck 228 mg/dL High 70-99 16 Laboratory test finding 05/09/[address] [address] [phone] Glucose-Accucheck 105 mg/dL High 70-99 17 Laboratory test finding 05/09/[address] [address] [phone] Glucose-Accucheck 210 mg/dL High 70-99 18 Laboratory test finding 05/09/[address] [address] [phone] Glucose-Accucheck 114 mg/dL High 70-99 19 CBC W/ Auto Diff 05/09/[address] [address] [phone] White Blood Count 6.6 10^3/uL Normal 4.1-10.2 Red Blood Count 4.21 10^6/uL Normal 3.80-5.20 Hemoglobin 12.2 g/dL Normal 11.5-15.5 Hematocrit 36.4 % Normal 35-46 Mean Corpuscular Volume 86.5 fL Normal 82.0-98.0 Mean Corpuscular Hemoglobin 29.0 pg Normal 27.0-34. 0 Mean Corpuscular Hgb Conc 33.5 g/dL Normal 31.0-36.0 RDW-SD 48.3 fL Normal 37-49 RDW-CV 15.2 % High 11.8-14.8 Platelet Count 149 10^3/uL Low 150-360 Mean Platelet Volume 11.0 fL Normal 9.4-12.3 Neutrophils %(Auto) 68.2 % Normal 42-75 Lymphocytes % (Auto) 19.8 % Normal 14-42 Monocytes % (Auto) 10.6 % Normal 4-13 Eosinophils % (Auto) 0.5 % Normal 0-6 Basophils % (Auto) 0.6 % Normal 0-2 Immature Granulocytes % (Auto) 0.3 % Normal 0.0-0 .7 NRBC% (Auto) 0.0 /100WBC Normal 0.0-0.2 Neutrophils # (Auto) 4.5 103uL Normal 1.8-6.6 Lymphocytes # (Auto) 1.3 10^3/uL Normal 1.0-3.1 Monocytes # (Auto) 0.7 103uL Normal 0.0-1.0 Eosinophils # (Auto) 0.0 103uL Normal 0.0-0.5 Basophils # (Auto) 0.0 10^3/uL Normal 0.0-0.1 Immature Granulocytes # (Auto) 0.0 10^3/uL Normal 0.0- 0.0 NRBC # (Auto) 0.000 10^3/uL Normal 0.000-0.012 Basic Metabolic Panel 05/09/[address] [address] [phone] Sodium 137 mmol/L Normal 136-145 Potassium 3.6 mmol/L Normal 3.5-5.1 Chloride 108 mmol/L High 98-107 Carbon Dioxide 24 mmol/L Normal 21-32 [facility] Anion Gap 5.0 mmol/L Normal 1.0-15.0 Blood Urea Nitrogen 18 mg/dL Normal 7-18 Creatinine,Serum 1.07 mg/dL High 0.55-1.02 GFR 49 20 BUN/Creatinine Ratio 16.8 Normal 10.0-20.00 Glucose 118 mg/dL High 70-99 Osmolality,Calculated 277 Normal 275-295 Calcium 8.4 mg/dL Low 8.5-10.1 Laboratory test finding 05/09/[address] [address] [phone] Magnesium 2.0 mg/dL Normal 1.8-2.4 Laboratory test finding 05/09/[address] [phone] Glucose-Accu check 145 mg/dL High 70-99 21 Laboratory test finding 05/08/[address] [address] [phone] Glucose-Accu check 275 mg/dL High 70-99 Gram Positive 05/08/[address] [address] [phone] Ampicillin ^2 Susceptible Gentamicin 500 ^<=500 Susceptible Linezolid ^<=1 Susceptible Penicillin ^4 Susceptible Vancomycin ^2 Susceptible Wound Culture 05/08/[address] [address] [phone] O:Entcspe Enterococcus spe <SEE NOTE> 22 Wound Culture Quantity: 23 O:Strfae Enterococ faecal <SEE NOTE> 24 Laboratory test finding 05/08/[address] [address] [phone] Gram Stain GSGPC^Gram Posit <SEE NOTE> 25 Xpert MRSA/SA Soft Skin & Tiss 05/08/[address] [address] [phone] MRSA, Soft Skin/Tiss ue NEGATIVE Negative Staph Aureus, Soft Skin/Tissue NEGATIVE Negat esthela 26 Laboratory test finding 04/15/[address] [address] [phone] Sedimentation Rate, Automated 33 mm/hr High 0-30 Basic Metabolic Panel 04/15/[address] [address] [phone] Sodium 138 mmol/L Normal 136-145 Potassium 4.0 mmol/L Normal 3.5-5.1 Chloride 108 mmol/L High 98-107 Carbon Dioxide 26 mmol/L Normal 21-32 [facility] Anion Gap 4.0 mmol/L Normal 1.0-15.0 Blood Urea Nitrogen 24 mg/dL High 7-18 Creatinine,Serum 1.20 mg/dL High 0.55-1.02 GFR 43 27 BUN/Creatinine Ratio 20.1 High 10.0-20.00 Glucose 171 mg/dL High 70-99 Osmolality,Calculated 285 Normal 275-295 Calcium 8.9 mg/dL Normal 8.5-10.1 CBC W/ Auto Diff 04/15/[address] [address] [phone] White Blood Count 5.1 10^3/uL Normal 4.1-10.2 Red Blood Count 4.44 10^6/uL Normal 3.80-5.20 Hemoglobin 12.5 g/dL Normal 11.5-15.5 Hematocrit 38.6 % Normal 35-46 Mean Corpuscular Volume 86.9 fL Normal 82.0-98.0 Mean Corpuscular Hemoglobin 28.2 pg Normal 27.0-34. 0 Mean Corpuscular Hgb Conc 32.4 g/dL Normal 31.0-36.0 RDW-SD 46.8 fL Normal 37-49 RDW-CV 14.7 % Normal 11.8-14.8 Platelet Count 191 10^3/uL Normal 150-360 Mean Platelet Volume 10.4 fL Normal 9.4-12.3 Neutrophils %(Auto) 49.5 % Normal 42-75 Lymphocytes % (Auto) 33.1 % Normal 14-42 Monocytes % (Auto) 10.7 % Normal 4-13 Eosinophils % (Auto) 5.5 % Normal 0-6 Basophils % (Auto) 1.0 % Normal 0-2 Immature Granulocytes % (Auto) 0.2 % Normal 0.0-0 .7 NRBC% (Auto) 0.0 /100WBC Normal 0.0-0.2 Neutrophils # (Auto) 2.5 103uL Normal 1.8-6.6 Lymphocytes # (Auto) 1.7 10^3/uL Normal 1.0-3.1 Monocytes # (Auto) 0.6 103uL Normal 0.0-1.0 Eosinophils # (Auto) 0.3 103uL Normal 0.0-0.5 Basophils # (Auto) 0.1 10^3/uL Normal 0.0-0.1 Immature Granulocytes # (Auto) 0.0 10^3/uL Normal 0.0- 0.0 NRBC # (Auto) 0.000 10^3/uL Normal 0.000-0.012 Laboratory test finding 04/15/[address] [address] [phone] C-Reactive Protein 3.22 mg/dL High 0.00-0.30 28 CBC W/O Diff 04/14/2023 [facility] [address] [place] [address] [phone] White Blood Count 5.9 10^3/uL Normal 4.1-10.2 Red Blood Count 4.32 10^6/uL Normal 3.80-5.20 Hemoglobin 12.5 g/dL Normal 11.5-15.5 Hematocrit 37.6 % Normal 35-46 Mean Corpuscular Volume 87.0 fL Normal 82.0-98.0 Mean Corpuscular Hemoglobin 28.9 pg Normal 27.0-34. 0 Mean Corpuscular Hgb Conc 33.2 g/dL Normal 31.0-36.0 RDW-SD 47.6 fL Normal 37-49 RDW-CV 14.8 % Normal 11.8-14.8 Platelet Count 178 10^3/uL Normal 150-360 Basic Metabolic Panel 04/14/[address] [address] [phone] Sodium 137 mmol/L Normal 136-145 Potassium 4.1 mmol/L Normal 3.5-5.1 Chloride 106 mmol/L Normal 98-107 Carbon Dioxide 26 mmol/L Normal 21-32 [facility] Anion Gap 5.0 mmol/L Normal 1.0-15.0 Blood Urea Nitrogen 19 mg/dL High 7-18 Creatinine,Serum 1.22 mg/dL High 0.55-1.02 GFR 42 29 BUN/Creatinine Ratio 15.6 Normal 10.0-20.00 Glucose 138 mg/dL High 70-99 Osmolality,Calculated 279 Normal 275-295 Calcium 8.6 mg/dL Normal 8.5-10.1 1 UNITS= mL/min/1.73m squared Unable to flag low results Results less than 60 may warrant further investigation Patients race is not known. If the patient is , multiply the calculated GFR result provided by 1.21. GFR Estimate should not be used to alter drug dosages. 2 The estimated averag e glucose (eAG) is an approximation of the average glucose concentration in mg/dL over the last 90 days. The 2010 "Standards of Medical Care in Diabetes" of the [place] [employer] includes the following interpretations of Hemoglobin A1c results: >=6.5% Diagnostic of Diabetes 5.7-6.4% IFG/IGT ("Pre-Diabetes") 3 Results from the C. difficile rt-PCR Assay should be interpreted in conjunction with other laboratory and clinical data. Erroneous test results might occur from improper specimen collection, handling and storage procedures. 4 UNITS= mL/min/1.73m squared Unable to flag low results Results less than 60 may warrant further investigation Patients race is not known. If the patient is , multiply the calculated GFR result provided by 1.21. GFR Estimate should not be used to alter drug dosages. 5 UNITS= mL/min/1.73m squared Unable to flag low results Results less than 60 may warrant further investigation Patients race is not known. If the patient is , multiply the calculated GFR result provided by 1.21. GFR Estimate should not be used to alter drug dosages. 6 Followed protocol 7 Followed protocol 8 Followed protocol 9 Followed protocol 10 Followed protocol 11 Followed protocol 12 Followed protocol 13 UNITS= mL/min/1.73m squared Unable to flag low results Results less than 60 may warrant further investigation Patients race is not known. If the patient is , multiply the calculated GFR result provided by 1.21. GFR Estimate should not be used to alter drug dosages. 14 Followed protocol 15 Followed protocol 16 Followed protocol 17 Followed protocol 18 Followed protocol 19 Followed protocol 20 UNITS= mL/min/1.73m squared Unable to flag low results Results less than 60 may warrant further investigation Patients race is not known. If the patient is , multiply the calculated GFR result provided by 1.21. GFR Estimate should not be used to alter drug dosages. 21 Followed protocol 22 Enterococcus species 23 Heavy Growth 24 Enterococ faecalis - (Group D) 25 GSGPC^Gram Positive Cocci 1^1+ Gram Positive Cocci GSWBC^White Blood Cells NW^No WBC's Seen 26 XPert MRSA/SA Soft S kin Tissue Assay is included as part of Wound Culture. Further ID and Sensitivities to follow. 27 UNITS= mL/min/1.73m squared Unable to flag low results Results less than 60 may warrant further investigation Patients race is not known. If the patient is , multiply the calculated GFR result provided by 1.21. GFR Estimate should not be used to alter drug dosages. 28 Diagnosis cellulitis 29 UNITS= mL/min/1.73m squared Unable to flag low results Results less than 60 may warrant further investigation Patients race is not known. If the patient is , multiply the calculated GFR result provided by 1.21. GFR Estimate should not be used to alter drug dosages. Procedures Date Code Description Status 08/07/2023 3078F Most Recent Diastolic BP <80 mm HG Completed 08/07/2023 3074F Most Recent Systolic Blood P ressure <130mm HG Completed 08/07/2023 3008F Body Mass Index (BMI), Docum ented (pv) Completed 07/28/2023 3078F Most Recent Diastolic BP <80 mm HG Completed 07/28/2023 3074F Most Recent Systolic Blood P ressure <130mm HG Completed 07/28/2023 3008F Body Mass Index (BMI), Docum ented (pv) Completed 05/29/2023 3008F Body Mass Index (BMI), Docum ented (pv) Completed 05/29/2023 1111F D/C Medications Reconciled W/Current Medications In Outpt MR Completed 04/24/2023 3008F Body Mass Index (BMI), Docum ented (pv) Completed 04/24/2023 1111F D/C Medications Reconciled W/Current Medications In Outpt MR Completed Medical Devices Description No Information Available Encounters Type Date Location Provider Dx Diagnosis Office Visit 08/07/2023 2:00p [facility] Kyle Cervantes MD I25.10 Athscl heart disease of [place] coronary artery w/o ang pctrs I48.0 Paroxysmal atrial fi brillation I10 Essential (primary) hypertension E78.5 Hyperlipidemia, unsp ecified R09.89 Oth symptoms and sig ns involving the circ and resp systems Z79.01 shelter (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 a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 Z68.31 Body mass index [BMI ] 31.0-31.9, adult Office Visit 07/28/2023 11:30a [facility] Moise Reed DO R19.7 Diarrhea, unspecified 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 I48.0 Paroxysmal atrial fi brillation I10 Essential (primary) hypertension 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 Z79.85 Lng trm (crnt) use i njectable non-insulin antidiabetic drugs Z68.31 Body mass index [BMI ] 31.0-31.9, adult Office Visit 05/29/2023 3:30p [facility] YAO Cervantes Z09 Encntr for f/u exam aft trtmt for cond oth than malig neoplm R19.7 Diarrhea, unspecifie d E11.621 Type 2 diabetes shawna itus with foot ulcer Z68.30 Body mass index [BMI ] 30.0-30.9, adult Office Visit 05/08/2023 2:40p [facility] Herve Carrillo DO A41.9 Sepsis, unspecified organism Office Visit 04/24/2023 11:30a [facility] YAO Cervantes Z09 Encntr for f/u exam aft trtmt for cond oth than malig neoplm B37.0 Candidal stomatitis M25.562 Pain in left knee Z68.33 Body mass index [BMI ] 33.0-33.9, adult Assessments Date Code Description Provider 08/07/2023 I25.10 Athscl heart dis ease of [place] coronary artery w/o ang pctrs Kyle Cervantes MD 08/07/2023 I48.0 Paroxysmal atrial fibrillati on Kyle Cervantes MD 08/07/2023 I10 Essential (primary) hyperten micaela Kyle Cervantes MD 08/07/2023 E78.5 Hyperlipidemia, unspecified Kyle Cervantes MD 08/07/2023 R09.89 Oth symptoms and signs involving the circ and resp systems Kyle Cervantes MD 08/07/2023 Z79.01 truck terminal manager (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 a 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 Kyle Cervantes MD 08/07/2023 Z68.31 Body mass index [BMI] 31.0-3 1.9, adult Kyle Cervantes MD 07/28/2023 R19.7 Diarrhea, unspecified Gilmar Reed DO 07/28/2023 E11.621 Type 2 diabetes mellitus wit h foot ulcer Moise Reed, DO 07/28/2023 L97.509 Non-pressure chr onic ulcer oth prt unsp foot w unsp severity Moise Reed, DO 07/28/2023 I48.0 Paroxysmal atrial fibrillati on Moise Reed, DO 07/28/2023 I10 Essential (primary) hyperten micaela Moise Reed, DO 07/28/2023 Z79.4 shelter (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 i nsulin Moise Reed, DO 07/28/2023 Z79.85 Lng trm (crnt) u se injectable non-insulin antidiabetic drugs Moise Reed, DO 07/28/2023 Z68.31 Body mass index [BMI] 31.0-3 1.9, adult Moise Reed, DO 05/29/2023 Z09 Encntr for f/u e xam aft trtmt for cond oth than malig neoplm YAO Cervantes 05/29/2023 R19.7 Diarrhea, unspecified Riki Santos, YAO 05/29/2023 E11.621 Type 2 diabetes mellitus wit h foot ulcer YAO Cervantes 05/29/2023 Z68.30 Body mass index [BMI] 30.0-3 0.9, adult YAO Cervantes 05/08/2023 A41.9 Sepsis Herve Sosa lb, DO 04/24/2023 Z09 Encntr for f/u e xam aft trtmt for cond oth than malig neoplm YAO Cervantes 04/24/2023 B37.0 Candidal stomatitis YAO Cervantes 04/24/2023 M25.562 Pain in left knee Riki cast, YAO 04/24/2023 Z68.33 Body mass index [BMI] 33.0-3 3.9, adult YAO Cervantes Plan of Treatment Future Appointment(s):* 02/05/2024 2:00 pm - Kyle Cervantes MD at [facility] * 11/03/2023 11:00 am - Moise Reed DO at [facility] Functional Status Description No Information Available Mental Status Description No Information Available Referrals Description No Information Available
--- OUTSIDE RECORDS SUMMARY | 2023-10-17 00:40 | External Medical Summary | Continuity of Care Document ---
Author Name Unknown Organization [facility] Address [address] [place] [address] Phone [phone] Care Team Providers Care Global Engineering Manager Name Role Phone Moise Reed DO Care Team Information Box Machine Operator [phone] ISABELA HARDIN DO Care Team Information Rec eiver [phone] Moise Reed DO Primary Care Physician Problems [...] dx: e11.9 200units Moise Reed, DO 09/01/2023 Vrmcjslp151489Tmsu/ML Suspension swish orally twice a day for 7 days 60ml B37.0 YAO Cervantes 04/24/2023 Ozempic (0.25 Or 0.5 MG/Dose)2mg/3ML Solution Pen-Inject 0.5 mg subcut every week 3ml Moise Reed, DO 04/06/2023 Synvisc Xgx01qe/6ML Soln Prefill Syringe one syringe injected intra-articular in to right knee. dx m17.11 6ml Isabela Espenshade, DO 03/13/2023 Obbimomygr440ll Tablets 1 by mouth three times a day 90tabs Moise Reed, DO 12/15/2022 Meclizine KSY75uh Tablets 1 tab by mouth three times a day as needed 60tabs R42 Moise Reed, DO 04/02/2022 Tresiba Xxqxllhae475Iptg/ML Solution Pen-Inject inject 24 units am and 32 units pm 9ml Moise Reed, DO 04/02/2022 Onetouch UltraStrips test twice daily dx e11.9 100units Moise Reed, DO 03/18/2022 Levothyroxine Hgpsff90jtr Tablets 1 tab by mouth every day 90tabs Moise Reed, DO 12/23/[address] 1 cap by mouth every day 90tabs Moise Reed, DO 06/21/2021 Amoxicillin/Clavulana te Ozuqwrzps239-216tz Tablets 1 tab by mouth three times a day Unknown Hbmmozdglfu4ii Tablets 1 tab by mouth three times a day as needed, may take 1 extra tablet daily according to blood sugar readings. 100tabs YAO Cervantes Atorvastatin Xqsuidd18aj Tablets 1 tab by mouth every night 90tabs Kyle Cervantes MD Calcium 600 1 tab by mouth every day Unknown [place]-3 Krill Scy287xm Capsules 2 caps by mouth every day Unknown Vitamin V414fuj (1000 Ut) Capsules 1 cap by mouth every day 90caps Unknown Multivitamin 1 tab by mouth every day Unknown Vitamin [id number] Tablets Sub 1 tab by mouth every day Unknown Probiotic 1 cap by mouth every day Unknown Nitroglycerin0.4mg Tablets Sub 1 tablet at first sign of attack; may repeat every 5 min up to 3 tabs, if no relief seek medical help. 25tabs Unknown Potassium Lllquklax038(99K) mg Tablets 1 tab by mouth every day Unknown Dznsfbk8wv Tablets 1 tab by mouth twice a day 180tabs Kyle Cervantes MD Clopidogrel Lbvwpbegy61of Tablets 1 tab by mouth every day 30tabs Moise Reed DO History Medications Vancomycin ADZ510eu Capsules 1 cap by mouth bid. 56caps YAO Cervantes 05/29/2023 - 07/28/2023 Gvaryebtfgcbw724xx Tablets take 1 tab by mouth three times a day 30tabs R19.7 YAO Cervantes 05/29/2023 - 07/28/2023 Sratvblm447133Edmc Tablets 1 take 1 tab three time a day X B37.0 YAO Cervantes 04/24/2023 - 04/24/2023 Medications Administered in Office Medication SIG Qnty Indications Ordering Provider Date Injection Betamethasone Acetate & Sodium Phosphate 3 MG Of EachInjection Satish Oviedo 03/11/2023 Immunizations CPT Code Status Date Vaccine Lot # 17171 Given 10/04/2021 Influenza Virus Vaccine H igh Dose Quadrivalent 37682 Given 07/07/2021 Moderna (Covid- 19) vaccine, mRNA, LNP-S, PF, 100 mcg/ 0.5 mL 41879 Given 10/18/2020 Influenza Virus Vaccine H igh Dose Quadrivalent 06984 Given 09/08/2018 Prevnar 13 Pneu mococcal Conjugate Vac 13 Valent [place] Use 46688 Given 08/17/2018 Influenza Virus Vaccine, Split Virus, Preservative Free Im 0.5ML 81311 Given 08/16/2017 Influenza Virus Vaccine, Split Virus, Preservative Free Im 0.5ML 98242 Given 10/03/2013 Pneumo 23 Pneumococcal Va ccine [...] Range N ote Comprehensive Metabolic Panel 07/28/2023 [facility] [address] [place] [address] [phone] Sodium 142 mmol/L Normal 136-145 Potassium 4.3 mmol/L Normal 3.5-5.1 Chloride 108 mmol/L High 98-107 Carbon Dioxide 31 mmol/L Normal 21-32 [facility] Anion Gap 3.0 mmol/L Normal 1.0-15.0 Blood [...] 0.9 Ratio Low 1.2-2.3 Glyco Panel 07/28/2023 [facility] [address] [place] [address] [phone] Hemoglobin A1c 7.0 % High 3.8-5.6 Estimated Average Glucose 154 mg/dL High 70-126 2 CBC W/ Auto Diff 07/28/2023 [facility] [address] [place] [address] [phone] White Blood Count 7.4 10^3/uL Normal 4.1-10.2 [...] 10^3/uL Normal 0.000-0.012 Laboratory test finding 06/02/[address] [id number] [phone] Clostridium Difficile Toxin NEGATIVE Negative 3 Laboratory test finding 05/13/[address] [address] [phone] Glucose-Accuc heck 252 mg/dL High 70-99 Laboratory test finding 05/13/[address] [address] [phone] Glucose-Accuc heck 169 mg/dL High 70-99 CBC W/ Auto Diff 05/13/[address] [address] [phone] White Blood Count 5.9 10^3/uL Normal 4.1-10.2 [...] 10^3/uL Normal 0.000-0.012 Comprehensive Metabolic Panel 05/13/[address] [address] [phone] Sodium 138 mmol/L Normal 136-145 Potassium 4.0 mmol/L Normal 3.5-5.1 Chloride 110 mmol/L High 98-107 Carbon Dioxide 26 mmol/L Normal 21-32 [facility] Anion Gap 2.0 mmol/L Normal 1.0-15.0 Blood [...] Ratio Low 1.2-2.3 Laboratory test finding 05/13/[address] [address] [phone] Magnesium 2.0 mg/dL Normal 1.8-2.4 CBC W/ Auto Diff 05/12/[address] [address] [phone] White Blood Count 4.9 10^3/uL Normal 4.1-10.2 [...] 10^3/uL Normal 0.000-0.012 Laboratory test finding 05/12/[address] [address] [phone] Magnesium 1.6 mg/dL Low 1.8-2.4 Comprehensive Metabolic Panel 05/12/2023 [facility] [address] [place] [address] [phone] Sodium 138 mmol/L Normal 136-145 Potassium 3.9 mmol/L Normal 3.5-5.1 Chloride 110 mmol/L High 98-107 Carbon Dioxide 27 mmol/L Normal 21-32 [facility] Anion Gap 1.0 mmol/L Normal 1.0-15.0 Blood [...] Ratio Low 1.2-2.3 Laboratory test finding 05/12/2023 [facility] [address] [place], [place] 7968266 [phone] Glucose-Accucheck 182 mg/dL High 70-99 6 Laboratory test finding 05/12/[address] [address] [phone] Glucose-Accucheck 128 mg/dL High 70-99 Laboratory test finding 05/12/2023 [facility] [address] [place] [address] [phone] Glucose-Accucheck 146 mg/dL High 70-99 7 Laboratory test finding 05/11/2023 [facility] [address] [place] [address] [phone] Vancomycin,Peak 32.5 ug/mL Normal 20.0-40 .0 Laboratory test finding 05/11/[address] [phone] Glucose-Accucheck 141 mg/dL High 70-99 8 Laboratory test finding 05/11/[address] 7603499 [phone] Vancomycin,Trough 10.1 ug/mL Normal 10.0-20 .0 Laboratory test finding 05/11/[address] 3418294 [phone] Glucose-Accucheck 171 mg/dL High 70-99 9 Laboratory test finding 05/11/[address] 4424444 [phone] Glucose-Accucheck 195 mg/dL High 70-99 10 Laboratory test finding 05/11/[address] [address] [phone] Glucose-Accucheck 146 mg/dL High 70-99 11 Laboratory test finding 05/10/[address] 0932013 [phone] Glucose-Accucheck 165 mg/dL High 70-99 12 Basic Metabolic Panel 05/10/[address] 1198548 [phone] Sodium 141 mmol/L Normal 136-145 Potassium 3.8 mmol/L Normal 3.5-5.1 Chloride 112 mmol/L High 98-107 Carbon Dioxide 26 mmol/L Normal 21-32 [facility] Anion Gap 3.0 mmol/L Normal 1.0-15.0 Blood Urea Nitrogen 14 mg/dL Normal 7-18 Creatinine,Serum 0.95 mg/dL Normal 0.55-1.02 GFR 56 13 BUN/Creatinine Ratio 14.7 Normal 10.0-20.00 Glucose 86 mg/dL Normal 70-99 Osmolality,Calculated 281 Normal 275-295 Calcium 9.0 mg/dL Normal 8.5-10.1 CBC W/ Auto Diff 05/10/[address] [address] [phone] White Blood Count 5.2 10^3/uL Normal 4.1-10.2 [...] 10^3/uL Normal 0.000-0.012 Laboratory test finding 05/10/[address] [address] [phone] Glucose-Accucheck 88 mg/dL Normal 70-99 Laboratory test finding 05/10/[address] [address] [phone] Glucose-Accucheck 183 mg/dL High 70-99 14 Laboratory test finding 05/10/[address] [address] [phone] Glucose-Accucheck 176 mg/dL High 70-99 15 Laboratory test finding 05/10/[address] [address] [phone] MRSA Screen (Molecular) NEGATIVE Negative Laboratory test finding 05/09/[address] [address] [phone] Glucose-Accucheck 228 mg/dL High 70-99 16 Laboratory test finding 05/09/[address] [address] [phone] Glucose-Accucheck 105 mg/dL High 70-99 17 Laboratory test finding 05/09/[address] [address] [phone] Glucose-Accucheck 210 mg/dL High 70-99 18 Laboratory test finding 05/09/[address] [address] [phone] Glucose-Accucheck 114 mg/dL High 70-99 19 CBC W/ Auto Diff 05/09/[address] [address] [phone] White Blood Count 6.6 10^3/uL Normal 4.1-10.2 [...] 10^3/uL Normal 0.000-0.012 Basic Metabolic Panel 05/09/[address] [address] [phone] Sodium 137 mmol/L Normal 136-145 Potassium 3.6 mmol/L Normal 3.5-5.1 Chloride 108 mmol/L High 98-107 Carbon Dioxide 24 mmol/L Normal 21-32 [facility] Anion Gap 5.0 mmol/L Normal 1.0-15.0 Blood Urea Nitrogen 18 mg/dL Normal 7-18 Creatinine,Serum 1.07 mg/dL High 0.55-1.02 GFR 49 20 BUN/Creatinine Ratio 16.8 Normal 10.0-20.00 Glucose 118 mg/dL High 70-99 Osmolality,Calculated 277 Normal 275-295 Calcium 8.4 mg/dL Low 8.5-10.1 Laboratory test finding 05/09/[address] [address] [phone] Magnesium 2.0 mg/dL Normal 1.8-2.4 Laboratory test finding 05/09/[address] 2099651 [phone] Glucose-Accu check 145 mg/dL High 70-99 21 Laboratory test finding 05/08/[address] [address] [phone] Glucose-Accu check 275 mg/dL High 70-99 Gram Positive 05/08/[address] [address] [phone] Ampicillin ^2 Susceptible Gentamicin 500 ^<=500 Susceptible Linezolid ^<=1 Susceptible Penicillin ^4 Susceptible Vancomycin ^2 Susceptible Wound Culture 05/08/[address] [address] [phone] O:Entcspe Enterococcus spe <SEE NOTE> 22 Wound Culture Quantity: 23 O:Strfae Enterococ faecal <SEE NOTE> 24 Laboratory test finding 05/08/[address] [address] [phone] Gram Stain GSGPC^Gram Posit <SEE NOTE> 25 Xpert MRSA/SA Soft Skin & Tiss 05/08/[address] [address] [phone] MRSA, Soft Skin/Tiss ue NEGATIVE Negative Staph Aureus, Soft Skin/Tissue NEGATIVE Negat esthela 26 Laboratory test finding 04/15/[address] [address] [phone] Sedimentation Rate, Automated 33 mm/hr High 0-30 Basic Metabolic Panel 04/15/[address] [address] [phone] Sodium 138 mmol/L Normal 136-145 Potassium 4.0 [...] Normal 8.5-10.1 CBC W/ Auto Diff 04/15/[address] [address] [phone] White Blood Count 5.1 10^3/uL Normal 4.1-10.2 [...] 10^3/uL Normal 0.000-0.012 Laboratory test finding 04/15/[address] [address] [phone] C-Reactive Protein 3.22 mg/dL High 0.00-0.30 28 CBC W/O Diff 04/14/2023 [facility] [address] [place] [address] [phone] White Blood Count 5.9 10^3/uL Normal 4.1-10.2 [...] 10^3/uL Normal 150-360 Basic Metabolic Panel 04/14/[address] [address] [phone] Sodium 137 mmol/L Normal 136-145 Potassium 4.1 mmol/L Normal 3.5-5.1 Chloride 106 mmol/L Normal 98-107 Carbon Dioxide 26 mmol/L Normal 21-32 [facility] Anion Gap 5.0 mmol/L Normal 1.0-15.0 Blood [...] of Medical Care in Diabetes" of the [place] [employer] includes the following interpretations of [...] Provider Dx Diagnosis Office Visit 08/07/2023 2:00p [facility] Kyle Cervantes MD I25.10 Athscl heart disease of [place] coronary artery w/o ang pctrs I48.0 Paroxysmal atrial fi brillation I10 Essential (primary) hypertension E78.5 Hyperlipidemia, unsp ecified R09.89 Oth symptoms and sig ns involving the circ and resp systems Z79.01 group home (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 a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 Z68.31 Body mass index [BMI ] 31.0-31.9, adult Office Visit 07/28/2023 11:30a [facility] Moise Reed DO R19.7 Diarrhea, unspecified 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 I48.0 Paroxysmal atrial fi brillation I10 Essential (primary) hypertension 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 Z79.85 Lng trm (crnt) use i njectable non-insulin antidiabetic drugs Z68.31 Body mass index [BMI ] 31.0-31.9, adult Office Visit 05/29/2023 3:30p [facility] YAO Cervantes Z09 Encntr for f/u exam aft trtmt for cond oth than malig neoplm R19.7 Diarrhea, unspecifie d E11.621 Type 2 diabetes shawna itus with foot ulcer Z68.30 Body mass index [BMI ] 30.0-30.9, adult Office Visit 05/08/2023 2:40p [facility] Herve Carrillo DO A41.9 Sepsis, unspecified organism Office Visit 04/24/2023 11:30a [facility] YAO Cervantes Z09 Encntr for f/u exam aft trtmt for cond oth than malig neoplm B37.0 Candidal stomatitis M25.562 Pain in left knee Z68.33 Body mass index [BMI ] 33.0-33.9, adult Assessments Date Code Description Provider 08/07/2023 I25.10 Athscl heart dis ease of [place] coronary artery w/o ang pctrs Kyle Cervantes MD 08/07/2023 I48.0 Paroxysmal atrial fibrillati on Kyle Cervantes MD 08/07/2023 I10 Essential (primary) hyperten micaela Kyle Cervantes MD 08/07/2023 E78.5 Hyperlipidemia, unspecified Kyle Cervantes MD 08/07/2023 R09.89 Oth symptoms and signs involving the circ and resp systems Kyle Cervantes MD 08/07/2023 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
--- OUTSIDE RECORDS SUMMARY | 2023-10-17 00:41 | External Medical Summary | Continuity of Care Document ---
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 dx m17.11 6ml Isabela Candice, DO 03/13/2023 Bjffrffqnp717uw Tablets 1 by mouth three times a day 90tabs Moise Reed, DO 12/15/2022 Onetouch Delica Lancets Extra Fine 33GMisc use twice a day; dx: e11.9 200units Moise Reed, DO 10/20/2022 Meclizine PZT99eu Tablets 1 tab by mouth three times a day as needed 60tabs R42 Moise Reed, DO 04/02/2022 Tresiba Aazdnqfwa080Ffgq/ML Solution Pen-Inject inject 24 units am and 32 units pm 9ml Moise Reed, DO 04/02/2022 Onetouch UltraStrips test twice daily dx e11.9 100units Moise Reed, DO 03/18/2022 Levothyroxine Fumdzl18jui Tablets 1 tab by mouth every day 90tabs Moise Reed, DO 12/23/[address] 1 cap by mouth every day 90tabs Moise Reed, DO 06/21/2021 Amoxicillin/Clavulana te Skmpjlwxk980-903rd Tablets 1 tab by mouth three times a day Unknown Muvquvpvvjg3fa Tablets 1 tab by mouth three times a day as needed, may take 1 extra tablet daily according to blood sugar readings. 100tabs YAO Cervantes Calcium 600 1 tab by mouth every day Unknown Atorvastatin Nunmrjh40of Tablets 1 tab by mouth every night 90tabs Kyle Cervantes MD [place]-3 Krill Jix592xn Capsules 2 caps by mouth every day Unknown Vitamin S888tja (1000 Ut) Capsules 1 cap by mouth every day 90caps Unknown Multivitamin 1 tab by mouth every day Unknown Vitamin [id number] Tablets Sub 1 tab by mouth every day Unknown Probiotic 1 cap by mouth every day Unknown Nitroglycerin0.4mg Tablets Sub 1 tablet at first sign of attack; may repeat every 5 min up to 3 tabs, if no relief seek medical help. 25tabs Unknown Potassium Fhsjfsgzr014(99K) mg Tablets 1 tab by mouth every day Unknown Metoprolol Fquattsw55ba Tablets 1 tab by mouth twice a day 180tabs Kyle Cervantes MD Jvadtgg7ga Tablets 1 tab by mouth twice a day 180tabs Kyle Cervantes MD Clopidogrel Jybltezvl94oz Tablets 1 tab by mouth every day 30tabs Moise Reed DO History Medications Vancomycin VWQ588rc Capsules 1 cap by mouth bid. 56caps YAO Cervantes 05/29/2023 - 07/28/2023 Vsbgdplfnjayh250va Tablets take 1 tab by mouth three times a day 30tabs R19.7 YAO Cervantes 05/29/2023 - 07/28/2023 Jiuslvtj660521Gvuz Tablets 1 take 1 tab three time a day X B37.0 YAO Cervantes 04/24/2023 - 04/24/2023 Medications Administered in Office Medication SIG Qnty Indications Ordering Provider Date Injection Betamethasone Acetate & Sodium Phosphate 3 MG Of EachInjection Satish Oviedo 03/11/2023 Immunizations CPT Code Status Date Vaccine Lot # [id number] Given 10/04/2021 Influenza Virus Vaccine H igh Dose Quadrivalent 68085 Given 07/07/2021 Moderna (Covid- 19) vaccine, mRNA, LNP-S, PF, 100 mcg/ 0.5 mL 54371 Given 10/18/2020 Influenza Virus Vaccine H igh Dose Quadrivalent 54085 Given 09/08/2018 Prevnar 13 Pneu mococcal Conjugate Vac 13 Valent For Im Use 73251 Given 08/17/2018 Influenza Virus Vaccine, Split Virus, Preservative Free Im 0.5ML 10172 Given 08/16/2017 Influenza Virus Vaccine, Split Virus, Preservative Free Im 0.5ML 89237 Given 10/03/2013 Pneumo 23 Pneumococcal Va ccine [...] Range N [place] Comprehensive Metabolic Panel 07/28/2023 [facility] [address] [place] [address] [phone] Sodium 142 mmol/L Normal 136-145 Potassium 4.3 mmol/L Normal 3.5-5.1 Chloride 108 mmol/L High 98-107 Carbon Dioxide 31 mmol/L Normal 21-32 [facility] [place]ion Gap 3.0 mmol/L Normal 1.0-15.0 Blood [...] 0.9 Ratio Low 1.2-2.3 Glyco Panel 07/28/[address] [address] [phone] Hemoglobin A1c 7.0 % High 3.8-5.6 Estimated Average Glucose 154 mg/dL High 70-126 2 CBC W/ Auto Diff 07/28/[address] [address] [phone] White Blood Count 7.4 10^3/uL Normal 4.1-10.2 [...] 10^3/uL Normal 0.000-0.012 Laboratory test finding 06/02/[address] [phone] Clostridium Difficile Toxin NEGATIVE Negative 3 Laboratory test finding 05/13/[address] [address] [phone] Glucose-Accuc heck 252 mg/dL High 70-99 Laboratory test finding 05/13/[address] [address] [phone] Glucose-Accuc heck 169 mg/dL High 70-99 CBC W/ Auto Diff 05/13/[address] [address] [phone] White Blood Count 5.9 10^3/uL Normal 4.1-10.2 [...] 10^3/uL Normal 0.000-0.012 Comprehensive Metabolic Panel 05/13/[address] [address] [phone] Sodium 138 mmol/L Normal 136-145 Potassium 4.0 mmol/L Normal 3.5-5.1 Chloride 110 mmol/L High 98-107 Carbon Dioxide 26 mmol/L Normal 21-32 [facility] [place]ion Gap 2.0 mmol/L Normal 1.0-15.0 Blood [...] Ratio Low 1.2-2.3 Laboratory test finding 05/13/[address] [address] [phone] Magnesium 2.0 mg/dL Normal 1.8-2.4 CBC W/ Auto Diff 05/12/[address] [address] [phone] White Blood Count 4.9 10^3/uL Normal 4.1-10.2 [...] 10^3/uL Normal 0.000-0.012 Laboratory test finding 05/12/2023 [facility] [address] [place] [address] [phone] Magnesium 1.6 mg/dL Low 1.8-2.4 Comprehensive Metabolic Panel 05/12/[address] [address] [phone] Sodium 138 mmol/L Normal 136-145 Potassium 3.9 mmol/L Normal 3.5-5.1 Chloride 110 mmol/L High 98-107 Carbon Dioxide 27 mmol/L Normal 21-32 [facility] [place]ion Gap 1.0 mmol/L Normal 1.0-15.0 Blood [...] Ratio Low 1.2-2.3 Laboratory test finding 05/12/[address] [address] [phone] Glucose-Accucheck 182 mg/dL High 70-99 6 Laboratory test finding 05/12/[address] [address] [phone] Glucose-Accucheck 128 mg/dL High 70-99 Laboratory test finding 05/12/[address] [address] [phone] Glucose-Accucheck 146 mg/dL High 70-99 7 Laboratory test finding 05/11/[address] [address] [phone] Vancomycin,Peak 32.5 ug/mL Normal 20.0-40 .0 Laboratory test finding 05/11/[address] [address] [phone] Glucose-Accucheck 141 mg/dL High 70-99 8 Laboratory test finding 05/11/[address] [phone] Vancomycin,Trough 10.1 ug/mL Normal 10.0-20 .0 Laboratory test finding 05/11/[address] 4647138 [phone] Glucose-Accucheck 171 mg/dL High 70-99 9 Laboratory test finding 05/11/[address] [address] [phone] Glucose-Accucheck 195 mg/dL High 70-99 10 Laboratory test finding 05/11/[address] [phone] Glucose-Accucheck 146 mg/dL High 70-99 11 Basic Metabolic Panel 05/10/[address] [address] [phone] Sodium 141 mmol/L Normal 136-145 Potassium 3.8 mmol/L Normal 3.5-5.1 Chloride 112 mmol/L High 98-107 Carbon Dioxide 26 mmol/L Normal 21-32 [facility] [place]ion Gap 3.0 mmol/L Normal 1.0-15.0 Blood Urea Nitrogen 14 mg/dL Normal 7-18 Creatinine,Serum 0.95 mg/dL Normal 0.55-1.02 GFR 56 12 BUN/Creatinine Ratio 14.7 Normal 10.0-20.00 Glucose 86 mg/dL Normal 70-99 Osmolality,Calculated 281 Normal 275-295 Calcium 9.0 mg/dL Normal 8.5-10.1 CBC W/ Auto Diff 05/10/[address] [address] [phone] White Blood Count 5.2 10^3/uL Normal 4.1-10.2 [...] 10^3/uL Normal 0.000-0.012 Laboratory test finding 05/10/[address] [address] [phone] Glucose-Accucheck 88 mg/dL Normal 70-99 Laboratory test finding 05/10/2023 [facility] [address] [place] [address] [phone] Glucose-Accucheck 165 mg/dL High 70-99 13 Laboratory test finding 05/10/2023 [facility] [address] [place] [address] [phone] Glucose-Accucheck 183 mg/dL High 70-99 14 Laboratory test finding 05/10/[address] [address] [phone] Glucose-Accucheck 176 mg/dL High 70-99 15 Laboratory test finding 05/10/[address] [address] [phone] MRSA Screen (Molecular) NEGATIVE Negative Laboratory test finding 05/09/[address] [address] [phone] Glucose-Accucheck 228 mg/dL High 70-99 16 Laboratory test finding 05/09/[address] [address] [phone] Glucose-Accucheck 105 mg/dL High 70-99 17 Laboratory test finding 05/09/[address] [address] [phone] Glucose-Accucheck 210 mg/dL High 70-99 18 Laboratory test finding 05/09/[address] [address] [phone] Glucose-Accucheck 114 mg/dL High 70-99 19 CBC W/ Auto Diff 05/09/[address] [address] [phone] White Blood Count 6.6 10^3/uL Normal 4.1-10.2 [...] 10^3/uL Normal 0.000-0.012 Basic Metabolic Panel 05/09/[address] [address] [phone] Sodium 137 mmol/L Normal 136-145 Potassium 3.6 mmol/L Normal 3.5-5.1 Chloride 108 mmol/L High 98-107 Carbon Dioxide 24 mmol/L Normal 21-32 [facility] [place]ion Gap 5.0 mmol/L Normal 1.0-15.0 Blood Urea Nitrogen 18 mg/dL Normal 7-18 Creatinine,Serum 1.07 mg/dL High 0.55-1.02 GFR 49 20 BUN/Creatinine Ratio 16.8 Normal 10.0-20.00 Glucose 118 mg/dL High 70-99 Osmolality,Calculated 277 Normal 275-295 Calcium 8.4 mg/dL Low 8.5-10.1 Laboratory test finding 05/09/[address] [address] [phone] Magnesium 2.0 mg/dL Normal 1.8-2.4 Laboratory test finding 05/09/[address] [address] [phone] Glucose-Acc ucheck 145 mg/dL High 70-99 21 Wound Culture 05/08/[address] [address] [phone] O:Entcspe Enterococcus spe <SEE NOTE> 22 Wound Culture Quantity: 23 O:Strfae Enterococ faecal <SEE NOTE> 24 Gram Positive 05/08/[address] [phone] Ampicillin ^2 Susceptible Gentamicin 500 ^<=500 Susceptible Linezolid ^<=1 Susceptible Penicillin ^4 Susceptible Vancomycin ^2 Susceptible Xpert MRSA/SA Soft Skin & Tiss 05/08/[address] [address] [phone] MRSA, Soft Skin/Tissue NEGATIVE Negative Staph Aureus, Soft Skin/Tissue NEGATIVE Negat esthela 25 Laboratory test finding 05/08/[address] [address] [phone] Glucose-Accucheck 275 mg/dL High 70-99 Laboratory test finding 05/08/[address] [address] [phone] Gram Stain GSGPC^G rosario Posit <SEE NOTE> 26 Laboratory test finding 04/15/[address] [address] [phone] Sedimentation Rate, Automated 33 mm/hr High 0-30 Basic Metabolic Panel 04/15/[address] [address] [phone] Sodium 138 mmol/L Normal 136-145 Potassium 4.0 mmol/L Normal 3.5-5.1 Chloride 108 mmol/L High 98-107 Carbon Dioxide 26 mmol/L Normal 21-32 [facility] [place]ion Gap 4.0 mmol/L Normal 1.0-15.0 Blood Urea Nitrogen 24 mg/dL High 7-18 Creatinine,Serum 1.20 mg/dL High 0.55-1.02 GFR 43 27 BUN/Creatinine Ratio 20.1 High 10.0-20.00 Glucose 171 mg/dL High 70-99 Osmolality,Calculated 285 Normal 275-295 Calcium 8.9 mg/dL Normal 8.5-10.1 CBC W/ Auto Diff 04/15/[address] [address] [phone] White Blood Count 5.1 10^3/uL Normal 4.1-10.2 [...] 10^3/uL Normal 0.000-0.012 Laboratory test finding 04/15/2023 [facility] [address] [place], [place] [address] [phone] C-Reactive Protein 3.22 mg/dL High 0.00-0.30 28 Basic Metabolic Panel 04/14/[address] [address] [phone] Sodium 137 mmol/L Normal 136-145 Potassium 4.1 mmol/L Normal 3.5-5.1 Chloride 106 mmol/L Normal 98-107 Carbon Dioxide 26 mmol/L Normal 21-32 [facility] [place]ion Gap 5.0 mmol/L Normal 1.0-15.0 Blood Urea Nitrogen 19 mg/dL High 7-18 Creatinine,Serum 1.22 mg/dL High 0.55-1.02 GFR 42 29 BUN/Creatinine Ratio 15.6 Normal 10.0-20.00 Glucose 138 mg/dL High 70-99 Osmolality,Calculated 279 Normal 275-295 Calcium 8.6 mg/dL Normal 8.5-10.1 CBC W/O Diff 04/14/[address] [address] [phone] White Blood Count 5.9 10^3/uL Normal 4.1-10.2 Red Blood Count 4.32 10^6/uL Normal 3.80-5.20 Hemoglobin 12.5 g/dL Normal 11.5-15.5 Hematocrit 37.6 % Normal 35-46 Mean Corpuscular Volume 87.0 fL Normal 82.0-98.0 Mean Corpuscular Hemoglobin 28.9 pg Normal 27.0-34. 0 Mean Corpuscular Hgb Conc 33.2 g/dL Normal 31.0-36.0 RDW-SD 47.6 fL Normal 37-49 RDW-CV 14.8 % Normal 11.8-14.8 Platelet Count 178 10^3/uL Normal 150-360 Xpert MRSA/SA Soft Skin & Tiss 04/13/[address] [address] [phone] MRSA, Soft Skin/Tissue NEGATIVE Negative 30 Staph Aureus, Soft Skin/Tissue NEGATIVE Negat esthela 31 Wound Culture 04/13/[address] [address] [phone] O:Straga Strep agalactiae <SEE NOTE> 32 Wound Culture Quantity: 33 Laboratory test finding 04/13/2023 [facility] [address] [place] [address] [phone] Gram Stain GSEPI^Epithelial <SEE NOTE> 34 CBC W/ Auto Diff 04/13/2023 [facility] [address] [place] [address] [phone] White Blood Count 7.0 10^3/uL Normal 4.1 -10 .2 Red Blood Count 4.39 10^6/uL Normal 3.80-5.20 Hemoglobin 12.6 g/dL Normal 11.5-15.5 Hematocrit 37.6 % Normal 35-46 Mean Corpuscular Volume 85.6 fL Normal 82.0-98.0 Mean Corpuscular Hemoglobin 28.7 pg Normal 27.0-34. 0 Mean Corpuscular Hgb Conc 33.5 g/dL Normal 31.0-36.0 RDW-SD 45.5 fL Normal 37-49 RDW-CV 14.5 % Normal 11.8-14.8 Platelet Count 180 10^3/uL Normal 150-360 Mean Platelet Volume 10.5 fL Normal 9.4-12.3 Neutrophils %(Auto) 80.7 % High 42-75 Lymphocytes % (Auto) 10.1 % Low 14-42 Monocytes % (Auto) 8.1 % Normal 4-13 Eosinophils % (Auto) 0.1 % Normal 0-6 Basophils % (Auto) 0.7 % Normal 0-2 Immature Granulocytes % (Auto) 0.3 % Normal 0.0-0 .7 NRBC% (Auto) 0.0 /100WBC Normal 0.0-0.2 Neutrophils # (Auto) 5.7 103uL Normal 1.8-6.6 Lymphocytes # (Auto) 0.7 10^3/uL Low 1.0-3.1 Monocytes # (Auto) 0.6 103uL Normal 0.0-1.0 Eosinophils # (Auto) 0.0 103uL Normal 0.0-0.5 Basophils # (Auto) 0.1 10^3/uL Normal 0.0-0.1 Immature Granulocytes # (Auto) 0.0 10^3/uL Normal 0.0- 0.0 NRBC # (Auto) 0.000 10^3/uL Normal 0.000-0.012 Glyco Panel 04/13/2023 [facility] [address] [place] [address] [phone] Hemoglobin A1c 7.5 % High 3.8-5.6 Estimated Average Glucose 169 mg/dL High 70-126 35 Comprehensive Metabolic Panel 04/13/2023 [facility] [address] [place] [address] [phone] Sodium 134 mmol/L Low 136-145 Potassium 3.9 mmol/L Normal 3.5-5.1 Chloride 104 mmol/L Normal 98-107 Carbon Dioxide 24 mmol/L Normal 21-32 [facility] Anion Gap 6.0 mmol/L Normal 1.0-15.0 Blood Urea Nitrogen 19 mg/dL High 7-18 Creatinine,Serum 1.15 mg/dL High 0.55-1.02 GFR 45 36 BUN/Creatinine Ratio 16.6 Normal 10.0-20.00 Glucose 133 mg/dL High 70-99 Osmolality,Calculated 272 Low 275-295 Calcium 8.4 mg/dL Low 8.5-10.1 Aspartate Aminotrans(Sgot) 52 U/L High 15-37 Alanine Aminotran (SGPT) 42 U/L Normal 13-56 Alkaline Phosphatase 98 U/L Normal 45-117 Bilirubin,Total 1.07 mg/dL High 0.20-1.00 Total Protein 6.5 g/dL Normal 6.40-8.20 Albumin 2.9 g/dL Low 3.4-5.0 Globulin 3.6 Ratio Normal 1.3-4.9 Albumin/Globulin Ratio 0.8 Ratio Low 1.2-2.3 Laboratory test finding 04/13/2023 [facility] [address] [place] [address] [phone] Thyroid Stimulating Hormone 1.260 uIU/mL Normal 0.358-3.74 Laboratory test finding 04/12/2023 [facility] [address] [place] [address] [phone] Sedimentation Rate, Automated 33 mm/hr High 0-30 C-Reactive Protein 4.85 mg/dL High 0.00-0.30 37 1 UNITS= mL/min/1.73m squared Unable to flag [...] of Medical Care in Diabetes" of the [place] [employer] includes the following interpretations of [...] 10 Followed protocol 11 Followed protocol 12 UNITS= mL/min/1.73m squared Unable to flag low results Results less than 60 may warrant further investigation Patients race is not known. If the patient is , multiply the calculated GFR result provided by 1.21. GFR Estimate should not be used to alter drug dosages. 13 Followed protocol 14 Followed protocol 15 Followed protocol 16 [...] 24 Enterococ faecalis - (Group D) 25 XPert MRSA/SA Soft S kin Tissue Assay is included as part of Wound Culture. Further ID and Sensitivities to follow. 26 GSGPC^Gram Positive Cocci 1^1+ Gram Positive Cocci GSWBC^White Blood Cells NW^No WBC's Seen 27 UNITS= mL/min/1.73m squared Unable to flag [...] not be used to alter drug dosages. 30 LEFT FOOT DRAINAGE 31 XPert MRSA/SA Soft S kin Tissue Assay is included as part of Wound Culture. Further ID and Sensitivities to follow. 32 Strep agalactiae - ( Group B) 33 Moderate Growth Sensi Sensitivity Not Routinely Performed Heavy Growth Normal Skin Vanessa with Light Growth Presumptive Proteus 34 GSEPI^Epithelial Trang ls F^Few Epithelial Cells GSGPC^Gram Positive Cocci 1^1+ Gram Positive Cocci GSGPR^Gram Positive Rods F^Few Gram Positive Rods GSWBC^White Blood Cells F^Few WBC's 35 The estimated averag e glucose (eAG) is an approximation of the average glucose concentration in mg/dL over the last 90 days. The 2010 "Standards of Medical Care in Diabetes" of the [place] [employer] includes the following interpretations of Hemoglobin A1c results: >=6.5% Diagnostic of Diabetes 5.7-6.4% IFG/IGT ("Pre-Diabetes") 36 UNITS= mL/min/1.73m squared Unable to flag low results Results less than 60 may warrant further investigation Patients race is not known. If the patient is , multiply the calculated GFR result provided by 1.21. GFR Estimate should not be used to alter drug dosages. 37 Diagnosis cellulitis, foot Procedures Date Code Description Status 08/07/2023 3078F [...] Reconciled W/Current Medications In Outpt MR Completed 04/02/2023 59444 Inject/Drain Art hrocentesis Major Joint/Bursa/Ganglion Cyst Completed 03/11/2023 J0702 Injection Betame thasone Acetate & Sodium Phosphate 3 MG Of Each Completed 03/11/2023 3078F Most Recent Diastolic BP <80 mm HG Completed 03/11/2023 3077F Most Recent Systolic BP >/=1 40mm HG Completed 03/11/2023 3008F Body Mass Index (BMI), Docum ented (pv) Completed 03/11/2023 [address] Inject/Drain Art hrocentesis Major Joint/Bursa/Ganglion Cyst Completed Medical Devices Description No Information Available Encounters Type Date Location Provider Dx Diagnosis Office Visit 08/07/2023 2:00p [facility] Kyle Cervantes MD I25.10 Athscl heart disease of [place] coronary artery w/o ang pctrs I48.0 Paroxysmal atrial fi brillation I10 Essential (primary) hypertension E78.5 Hyperlipidemia, unsp ecified R09.89 Oth symptoms and sig ns involving the circ and resp systems 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 Z68.31 Body mass index [BMI ] 31.0-31.9, adult Office Visit 07/28/2023 11:30a [facility] Moise Reed DO R19.7 Diarrhea, unspecified 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 I48.0 Paroxysmal atrial fi brillation I10 Essential (primary) hypertension Z79.4 prison (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 insulin Z79.85 Lng trm (crnt) use i njectable non-insulin antidiabetic drugs Z68.31 Body mass index [BMI ] 31.0-31.9, adult Office Visit 05/29/2023 3:30p [facility] YAO Cervantes Z09 Encntr for f/u exam aft trtmt for cond oth than malig neoplm R19.7 Diarrhea, unspecifie d E11.621 Type 2 diabetes shawna itus with foot ulcer Z68.30 Body mass index [BMI ] 30.0-30.9, adult Office Visit 05/08/2023 2:40p [facility] Herve Carrillo DO A41.9 Sepsis, unspecified organism Office Visit 04/24/2023 11:30a [facility] YAO Cervantes Z09 Encntr for f/u exam aft trtmt for cond oth than malig neoplm B37.0 Candidal stomatitis M25.562 Pain in left knee Z68.33 Body mass index [BMI ] 33.0-33.9, adult Office Visit 03/11/2023 3:00p [facility] Moise Reed DO I48.0 Paroxysmal atrial fibrillation L03.116 Cellulitis of left l ower limb I10 Essential (primary) hypertension M25.562 Pain in left knee E78.00 Pure hypercholestero lemia, unspecified E11.9 Type 2 diabetes shawna itus without complications Z79.01 prison (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 a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 Z68.30 Body mass index [BMI ] 30.0-30.9, adult Assessments Date Code Description Provider 08/07/2023 I25.10 Athscl heart dis ease of [place] coronary artery w/o ang pctrs Kyle Cervantes MD 08/07/2023 I48.0 Paroxysmal atrial fibrillati on Kyle Cervantes MD 08/07/2023 I10 Essential (primary) hyperten micaela Kyle Cervantes MD 08/07/2023 E78.5 Hyperlipidemia, unspecified Kyle Cervantes MD 08/07/2023 R09.89 Oth symptoms and signs involving the circ and resp systems Kyle Cervantes MD 08/07/2023 Z79.01 extermination supervisor (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 a 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 Kyle Cervantes MD 08/07/2023 Z68.31 Body mass index [BMI] 31.0-3 1.9, adult Kyle Cervantes MD 07/28/2023 R19.7 Diarrhea, unspecified Gilmar Reed, DO 07/28/2023 E11.621 Type 2 diabetes mellitus wit h foot ulcer [facility], DO 07/28/2023 L97.509 Non-pressure chr onic ulcer oth prt unsp foot w unsp severity [facility], DO 07/28/2023 I48.0 Paroxysmal atrial fibrillati on [facility], DO 07/28/2023 I10 Essential (primary) hyperten micaela [facility], DO 07/28/2023 Z79.4 extermination supervisor (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 i nsulin [facility], DO 07/28/2023 Z79.85 Lng trm (crnt) u se injectable non-insulin antidiabetic drugs [facility], DO 07/28/2023 Z68.31 Body mass index [BMI] 31.0-3 1.9, adult Moise Reed, DO 05/29/2023 Z09 Encntr for f/u e xam aft trtmt for cond oth than malig neoplm Riki Santos, YAO 05/29/2023 R19.7 Diarrhea, unspecified Riki Santos, YAO 05/29/2023 E11.621 Type 2 diabetes mellitus wit h foot ulcer Riki Santos, YAO 05/29/2023 Z68.30 Body mass index [BMI] 30.0-3 0.9, adult YAO Cervantes 05/08/2023 A41.9 Sepsis Herve Man Ian [facility], DO 04/24/2023 Z09 Encntr for f/u e xam aft trtmt for cond oth than malig neoplm Riki Santos, YAO 04/24/2023 B37.0 Candidal stomatitis YAO Cervantes 04/24/2023 M25.562 Pain in left knee Riki Tucker rris, YAO 04/24/2023 Z68.33 Body mass index [BMI] 33.0-3 3.9, adult Renéeoralia YAO Smith 04/02/2023 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, right knee Isabela Hardin, DO 04/02/2023 M25.561 Pain in right knee Isabela estrada, DO 03/11/2023 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, right knee Isabela Hardin, DO 03/11/2023 M25.561 Pain in right knee Isabela estrada, DO 03/11/2023 I48.0 Paroxysmal atrial fibrillati on Moise Reed, DO 03/11/2023 L03.116 Cellulitis of left lower tamayo b Moise Reed, DO 03/11/2023 I10 Essential (primary) hyperten micaela Moise Reed, DO 03/11/2023 M25.562 Pain of knee region Moise Reed, DO 03/11/2023 E78.00 Pure hypercholesterolemia, u nspecified Moise Reed, DO 03/11/[address]23 [address]11[address], DO 03/11/2023 Z79.01 prison (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 a 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 Moise Reed, DO 03/11/2023 Z68.30 Body mass index [BMI] 30.0-3 0.9, adult Moise Reed DO Plan of Treatment Future Appointment(s):* 02/05/2024 2:00 pm - Kyle Cervantes MD at [facility] * 11/03/2023 11:00 am - Moise Reed DO at [facility] Functional Status Description No Information Available Mental Status Description No Information Available Referrals Description No Information Available
--- OUTSIDE RECORDS SUMMARY | 2023-10-17 00:41 | External Medical Summary | Continuity of Care Document ---
Author Name Unknown Organization [facility] Address [address] [place] [address] Phone [phone] Care Team Providers Care Manager Intensive Care Name Role Phone Moise Reed DO Care Team Information Telegraph Mechanic [phone] ISABELA HARDIN DO Care Team Information Rec eiver [phone] Moise Reed DO Primary Care Physician Problems [...] dx: e11.9 200units Moise Reed, DO 09/01/2023 Zkospryq952769Bwml/ML Suspension swish orally twice a day for 7 days 60ml B37.0 YAO Cervantes 04/24/2023 Ozempic (0.25 Or 0.5 MG/Dose)2mg/3ML Solution Pen-Inject 0.5 mg subcut every week 3ml Moise Reed, DO 04/06/2023 Synvisc Wmx73ne/6ML Soln Prefill Syringe one syringe injected intra-articular in to right knee. dx m17.11 6ml Isabela Espenshade, DO 03/13/2023 Moptrmqbhj714gk Tablets 1 by mouth three times a day 90tabs Moise Reed, DO 12/15/2022 Meclizine IFZ56ss Tablets 1 tab by mouth three times a day as needed 60tabs R42 Moise Reed, DO 04/02/2022 Tresiba Fuwoflnzb809Tszb/ML Solution Pen-Inject inject 24 units am and 32 units pm 9ml Moise Reed, DO 04/02/2022 Onetouch UltraStrips test twice daily dx e11.9 100units Moise Reed, DO 03/18/2022 Levothyroxine Emltkc47atj Tablets 1 tab by mouth every day 90tabs Moise Reed, DO 12/23/[address] 1 cap by mouth every day 90tabs Moise Reed, DO 06/21/2021 Amoxicillin/Clavulana te Dtmtkmlna565-276fv Tablets 1 tab by mouth three times a day Unknown Zyrmjfvstpy4cn Tablets 1 tab by mouth three times a day as needed, may take 1 extra tablet daily according to blood sugar readings. 100tabs YAO Cervantes Atorvastatin Pbfxcke25om Tablets 1 tab by mouth every night 90tabs Kyle Cervantes MD Calcium 600 1 tab by mouth every day Unknown [place]-3 Krill Leq869ry Capsules 2 caps by mouth every day Unknown Vitamin E459tej (1000 Ut) Capsules 1 cap by mouth every day 90caps Unknown Multivitamin 1 tab by mouth every day Unknown Vitamin [id number]-[id number] Tablets Sub 1 tab by mouth every day Unknown Probiotic 1 cap by mouth every day Unknown Nitroglycerin0.4mg Tablets Sub 1 tablet at first sign of attack; may repeat every 5 min up to 3 tabs, if no relief seek medical help. 25tabs Unknown Potassium Dyapbgqur933(99K) mg Tablets 1 tab by mouth every day Unknown Yszbwqg0mw Tablets 1 tab by mouth twice a day 180tabs Kyle Cervantes MD Clopidogrel Jbvvjutzz18nd Tablets 1 tab by mouth every day 30tabs Moise Reed DO History Medications Vancomycin RNP953bc Capsules 1 cap by mouth bid. 56caps YAO Cervantes 05/29/2023 - 07/28/2023 Mpecmxesseerj533ib Tablets take 1 tab by mouth three times a day 30tabs R19.7 YAO Cervnates 05/29/2023 - 07/28/2023 Nogrvtrp498813Iptl Tablets 1 take 1 tab three time a day X B37.0 YAO Cervantes 04/24/2023 - 04/24/2023 Medications Administered in Office Medication SIG Qnty Indications Ordering Provider Date Injection Betamethasone Acetate & Sodium Phosphate 3 MG Of EachInjection Satish Oviedo 03/11/2023 Immunizations CPT Code Status Date Vaccine Lot # 18971 Given 10/04/2021 Influenza Virus Vaccine H igh Dose Quadrivalent 35485 Given 07/07/2021 Moderna (Covid- 19) vaccine, mRNA, LNP-S, PF, 100 mcg/ 0.5 mL 68995 Given 10/18/2020 Influenza Virus Vaccine H igh Dose Quadrivalent 51487 Given 09/08/2018 Prevnar 13 Pneu mococcal Conjugate Vac 13 Valent For Im Use 23868 Given 08/17/2018 Influenza Virus Vaccine, Split Virus, Preservative Free Im 0.5ML 20520 Given 08/16/2017 Influenza Virus Vaccine, Split Virus, Preservative Free Im 0.5ML 77020 Given 10/03/2013 Pneumo 23 Pneumococcal Va ccine [...] Range N ote Comprehensive Metabolic Panel 07/28/2023 [facility] [address] [place] [address] [phone] Sodium 142 mmol/L Normal 136-145 Potassium 4.3 mmol/L Normal 3.5-5.1 Chloride 108 mmol/L High 98-107 Carbon Dioxide 31 mmol/L Normal 21-32 [facility] Anion Gap 3.0 mmol/L Normal 1.0-15.0 Blood [...] 0.9 Ratio Low 1.2-2.3 Glyco Panel 07/28/2023 [facility] [address] [place] [address] [phone] Hemoglobin A1c 7.0 % High 3.8-5.6 Estimated Average Glucose 154 mg/dL High 70-126 2 CBC W/ Auto Diff 07/28/2023 [facility] [address] [place] [address] [phone] White Blood Count 7.4 10^3/uL Normal 4.1-10.2 [...] 10^3/uL Normal 0.000-0.012 Laboratory test finding 06/02/[address] [phone] Clostridium Difficile Toxin NEGATIVE Negative 3 Laboratory test finding 05/13/[address] [address] [phone] Glucose-Accuc heck 252 mg/dL High 70-99 Laboratory test finding 05/13/[address] [address] [phone] Glucose-Accuc heck 169 mg/dL High 70-99 CBC W/ Auto Diff 05/13/[address] [address] [phone] White Blood Count 5.9 10^3/uL Normal 4.1-10.2 [...] 10^3/uL Normal 0.000-0.012 Comprehensive Metabolic Panel 05/13/[address] [address] [phone] Sodium 138 mmol/L Normal 136-145 Potassium 4.0 mmol/L Normal 3.5-5.1 Chloride 110 mmol/L High 98-107 Carbon Dioxide 26 mmol/L Normal 21-32 [facility] Anion Gap 2.0 mmol/L Normal 1.0-15.0 Blood [...] Ratio Low 1.2-2.3 Laboratory test finding 05/13/[address] [address] [phone] Magnesium 2.0 mg/dL Normal 1.8-2.4 CBC W/ Auto Diff 05/12/[address] [address] [phone] White Blood Count 4.9 10^3/uL Normal 4.1-10.2 [...] 10^3/uL Normal 0.000-0.012 Laboratory test finding 05/12/[address] [address] [phone] Magnesium 1.6 mg/dL Low 1.8-2.4 Comprehensive Metabolic Panel 05/12/2023 [facility] [address] [place] [address] [phone] Sodium 138 mmol/L Normal 136-145 Potassium 3.9 mmol/L Normal 3.5-5.1 Chloride 110 mmol/L High 98-107 Carbon Dioxide 27 mmol/L Normal 21-32 [facility] Anion Gap 1.0 mmol/L Normal 1.0-15.0 Blood [...] Ratio Low 1.2-2.3 Laboratory test finding 05/12/2023 [facility] [address] [place], [place] 1624293 [phone] Glucose-Accucheck 182 mg/dL High 70-99 6 Laboratory test finding 05/12/[address] [address] [phone] Glucose-Accucheck 128 mg/dL High 70-99 Laboratory test finding 05/12/2023 [facility] [address] [place] [address] [phone] Glucose-Accucheck 146 mg/dL High 70-99 7 Laboratory test finding 05/11/2023 [facility] [address] [place] [address] [phone] Vancomycin,Peak 32.5 ug/mL Normal 20.0-40 .0 Laboratory test finding 05/11/[address] [phone] Glucose-Accucheck 141 mg/dL High 70-99 8 Laboratory test finding 05/11/[address] [phone] [phone] Vancomycin,Trough 10.1 ug/mL Normal 10.0-20 .0 Laboratory test finding 05/11/[address] 1945873 [phone] Glucose-Accucheck 171 mg/dL High 70-99 9 Laboratory test finding 05/11/[address] 6653956 [phone] Glucose-Accucheck 195 mg/dL High 70-99 10 Laboratory test finding 05/11/[address] [address] [phone] Glucose-Accucheck 146 mg/dL High 70-99 11 Laboratory test finding 05/10/[address] [phone] [phone] Glucose-Accucheck 165 mg/dL High 70-99 12 Basic Metabolic Panel 05/10/[address] [phone] Sodium 141 mmol/L Normal 136-145 Potassium 3.8 mmol/L Normal 3.5-5.1 Chloride 112 mmol/L High 98-107 Carbon Dioxide 26 mmol/L Normal 21-32 [facility] Anion Gap 3.0 mmol/L Normal 1.0-15.0 Blood Urea Nitrogen 14 mg/dL Normal 7-18 Creatinine,Serum 0.95 mg/dL Normal 0.55-1.02 GFR 56 13 BUN/Creatinine Ratio 14.7 Normal 10.0-20.00 Glucose 86 mg/dL Normal 70-99 Osmolality,Calculated 281 Normal 275-295 Calcium 9.0 mg/dL Normal 8.5-10.1 CBC W/ Auto Diff 05/10/[address] [address] [phone] White Blood Count 5.2 10^3/uL Normal 4.1-10.2 [...] 10^3/uL Normal 0.000-0.012 Laboratory test finding 05/10/[address] [address] [phone] Glucose-Accucheck 88 mg/dL Normal 70-99 Laboratory test finding 05/10/[address] [address] [phone] Glucose-Accucheck 183 mg/dL High 70-99 14 Laboratory test finding 05/10/[address] [address] [phone] Glucose-Accucheck 176 mg/dL High 70-99 15 Laboratory test finding 05/10/[address] [address] [phone] MRSA Screen (Molecular) NEGATIVE Negative Laboratory test finding 05/09/[address] [address] [phone] Glucose-Accucheck 228 mg/dL High 70-99 16 Laboratory test finding 05/09/[address] [address] [phone] Glucose-Accucheck 105 mg/dL High 70-99 17 Laboratory test finding 05/09/[address] [address] [phone] Glucose-Accucheck 210 mg/dL High 70-99 18 Laboratory test finding 05/09/[address] [address] [phone] Glucose-Accucheck 114 mg/dL High 70-99 19 CBC W/ Auto Diff 05/09/[address] [address] [phone] White Blood Count 6.6 10^3/uL Normal 4.1-10.2 [...] 10^3/uL Normal 0.000-0.012 Basic Metabolic Panel 05/09/[address] [address] [phone] Sodium 137 mmol/L Normal 136-145 Potassium 3.6 mmol/L Normal 3.5-5.1 Chloride 108 mmol/L High 98-107 Carbon Dioxide 24 mmol/L Normal 21-32 [facility] Anion Gap 5.0 mmol/L Normal 1.0-15.0 Blood Urea Nitrogen 18 mg/dL Normal 7-18 Creatinine,Serum 1.07 mg/dL High 0.55-1.02 GFR 49 20 BUN/Creatinine Ratio 16.8 Normal 10.0-20.00 Glucose 118 mg/dL High 70-99 Osmolality,Calculated 277 Normal 275-295 Calcium 8.4 mg/dL Low 8.5-10.1 Laboratory test finding 05/09/[address] [address] [phone] Magnesium 2.0 mg/dL Normal 1.8-2.4 Laboratory test finding 05/09/[address] [phone] Glucose-Accu check 145 mg/dL High 70-99 21 Laboratory test finding 05/08/[address] [address] [phone] Glucose-Accu check 275 mg/dL High 70-99 Gram Positive 05/08/[address] [address] [phone] Ampicillin ^2 Susceptible Gentamicin 500 ^<=500 Susceptible Linezolid ^<=1 Susceptible Penicillin ^4 Susceptible Vancomycin ^2 Susceptible Wound Culture 05/08/[address] [address] [phone] O:Entcspe Enterococcus spe <SEE NOTE> 22 Wound Culture Quantity: 23 O:Strfae Enterococ faecal <SEE NOTE> 24 Laboratory test finding 05/08/[address] [address] [phone] Gram Stain GSGPC^Gram Posit <SEE NOTE> 25 Xpert MRSA/SA Soft Skin & Tiss 05/08/[address] [address] [phone] MRSA, Soft Skin/Tiss ue NEGATIVE Negative Staph Aureus, Soft Skin/Tissue NEGATIVE Negat esthela 26 Laboratory test finding 04/15/[address] [address] [phone] Sedimentation Rate, Automated 33 mm/hr High 0-30 Basic Metabolic Panel 04/15/[address] [address] [phone] Sodium 138 mmol/L Normal 136-145 Potassium 4.0 [...] Normal 8.5-10.1 CBC W/ Auto Diff 04/15/[address] [address] [phone] White Blood Count 5.1 10^3/uL Normal 4.1-10.2 [...] 10^3/uL Normal 0.000-0.012 Laboratory test finding 04/15/[address] [address] [phone] C-Reactive Protein 3.22 mg/dL High 0.00-0.30 28 CBC W/O Diff 04/14/2023 [facility] [address] [place] [address] [phone] White Blood Count 5.9 10^3/uL Normal 4.1-10.2 [...] 10^3/uL Normal 150-360 Basic Metabolic Panel 04/14/[address] [address] [phone] Sodium 137 mmol/L Normal 136-145 Potassium 4.1 mmol/L Normal 3.5-5.1 Chloride 106 mmol/L Normal 98-107 Carbon Dioxide 26 mmol/L Normal 21-32 [facility] Anion Gap 5.0 mmol/L Normal 1.0-15.0 Blood [...] of Medical Care in Diabetes" of the [place] [employer] includes the following interpretations of [...] Provider Dx Diagnosis Office Visit 08/07/2023 2:00p [facility] Kyle Cervantes MD I25.10 Athscl heart disease of [place] coronary artery w/o ang pctrs I48.0 Paroxysmal atrial fi brillation I10 Essential (primary) hypertension E78.5 Hyperlipidemia, unsp ecified R09.89 Oth symptoms and sig ns involving the circ and resp systems Z79.01 detention (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 a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 Z68.31 Body mass index [BMI ] 31.0-31.9, adult Office Visit 07/28/2023 11:30a [facility] Moise Reed DO R19.7 Diarrhea, unspecified 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 I48.0 Paroxysmal atrial fi brillation I10 Essential (primary) hypertension Z79.4 manager terminal (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 insulin Z79.85 Lng trm (crnt) use i njectable non-insulin antidiabetic drugs Z68.31 Body mass index [BMI ] 31.0-31.9, adult Office Visit 05/29/2023 3:30p [facility] YAO Cervantes Z09 Encntr for f/u exam aft trtmt for cond oth than malig neoplm R19.7 Diarrhea, unspecifie d E11.621 Type 2 diabetes shawna itus with foot ulcer Z68.30 Body mass index [BMI ] 30.0-30.9, adult Office Visit 05/08/2023 2:40p [facility] Herve Carrillo DO A41.9 Sepsis, unspecified organism Office Visit 04/24/2023 11:30a [facility] YAO Cervantes Z09 Encntr for f/u exam aft trtmt for cond oth than malig neoplm B37.0 Candidal stomatitis M25.562 Pain in left knee Z68.33 Body mass index [BMI ] 33.0-33.9, adult Assessments Date Code Description Provider 08/07/2023 I25.10 Athscl heart dis ease of [place] coronary artery w/o ang pctrs Kyle Cervantes MD 08/07/2023 I48.0 Paroxysmal atrial fibrillati on Kyle Cervantes MD 08/07/2023 I10 Essential (primary) hyperten micaela Kyle Cervantes MD 08/07/2023 E78.5 Hyperlipidemia, unspecified Kyle Cervantes MD 08/07/2023 R09.89 Oth symptoms and signs involving the circ and resp systems Kyle Cervantes MD 08/07/2023 Z79.01 manager terminal (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 a 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 Kyle Cervantes [...] hyperten micaela Moise Reed, DO 07/28/2023 Z79.4 detention (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 i nsulin Moise Reed, [...] 2:00 pm - Kyle Cervantes MD at [facility] * 11/03/2023 11:00 am - Moise Reed DO at [facility] Functional Status Description No Information Available Mental Status Description No Information Available Referrals Description No Information Available
--- OUTSIDE RECORDS SUMMARY | 2023-10-17 00:42 | External Medical Summary | Continuity of Care Document ---
Author Name Unknown Organization [facility] Address [address] [place] [address] Phone [phone] Care Team Providers Care Tipple Oiler Name Role Phone Moise Reed DO Care Team Information Machine Attendant [phone] Moise Reed DO Care Team Information Machine Attendant [phone] ZANE CERVANTES MD Care Team Information Receive r [phone] Moise Reed DO Primary Care Physician Problems Active Problems Provider Date Hypothyroidism Onset: 5 Gastroesophageal reflux disease Onset: Peripheral vascular disease Onse t: Atherosclerosis of coronary artery without angina pectoris Zane Cervantes MD Onset: 06/19/2021 Pure hypercholesterolemia Zane Cervantes MD Ons et: 06/19/2021 Paroxysmal atrial fibrillation Billy Whittaker Onset: 06/19/2021 Diabetes mellitus Zane Cervantes MD Onset: 02/2021 Essential hypertension Zane Cervatnes MD Onset: 06/21/2021 Long-term current use of anticoagulant Zane flowers MD Onset: 06/21/2021 Body mass index 30+ - obesity Zane Cervantes MD Onset: 01/03/2022 Dyslipidemia Enrique Sousa MD Onset: 01/23/20 22 Viremia Barbie Paulino PA-C Onset: Sleep apnea Zane Cervantes MD Onset: 2022 Social History Type [...] SIG Qnty Indications Order ing Provider Date [id number]/ML Suspension swish orally twice a day for 7 days 60ml B37.0 YAO Cervantes 04/24/2023 Ozempic (0.25 Or 0.5 MG/Dose)2mg/3ML Solution Pen-Inject 0.5 mg subcut every week 3ml Moise Reed, DO 04/06/2023 Synvisc Jda03zf/6ML Soln Prefill Syringe one syringe injected intra-articular in to right knee. dx m17.11 6ml Moody Esppiade, DO 03/13/2023 Avxtudfpgh550ce Tablets 1 by mouth three times a day 90tabs Moise Reed, DO 12/15/2022 Onetouch Delica Lancets Extra Fine 33GMisc use twice a day; dx: e11.9 200units Moise Reed, DO 10/20/2022 Meclizine BTY75hb Tablets 1 tab by mouth three times a day as needed 60tabs R42 Moise Reed, DO 04/02/2022 Tresiba Deibuizdz028Gibu/ML Solution Pen-Inject inject 24 units am and 32 units pm 9ml Moise Reed, DO 04/02/2022 Onetouch UltraStrips test twice daily dx e11.9 100units Moise Reed, DO 03/18/2022 Levothyroxine Wtsbuk05mam Tablets 1 tab by mouth every day 90tabs Moise Reed, DO 12/23/[address] 1 cap by mouth every day 90tabs Moise Reed, DO 06/21/2021 Amoxicillin/Clavulana te Qigafpcoz534-512ga Tablets 1 tab by mouth three times a day Unknown Jzbytskvxiv5kd Tablets 1 tab by mouth three times a day as needed, may take 1 extra tablet daily according to blood sugar readings. 100tabs YAO Cervantes Calcium 600 1 tab by mouth every day Unknown Atorvastatin Nmvqacm42nt Tablets 1 tab by mouth every night 90tabs Zane Cervantes MD Loma-3 Krill Dfb679cj Capsules 2 caps by mouth every day Unknown Vitamin E785jjh (1000 Ut) Capsules 1 cap by mouth every day 90caps Unknown Multivitamin 1 tab by mouth every day Unknown Vitamin B-[id number] Tablets Sub 1 tab by mouth every day Unknown Probiotic 1 cap by mouth every day Unknown Nitroglycerin0.4mg Tablets Sub 1 tablet at first sign of attack; may repeat every 5 min up to 3 tabs, if no relief seek medical help. 25tabs Unknown Potassium Zyfsqyjjq837(99K) mg Tablets 1 tab by mouth every day Unknown Metoprolol Ctrttoox85jx Tablets 1 tab by mouth twice a day 180tabs Zane Cervantes MD Qwmidgx7dv Tablets 1 tab by mouth twice a day 180tabs Zane Cervantes MD Clopidogrel Txxrywbfo62ry Tablets 1 tab by mouth every day 30tabs Moise Reed DO History Medications Vancomycin [id number] Capsules 1 cap by mouth bid. 56caps YAO Cervantes 05/29/2023 - 07/28/2023 Jpsxmkaaqqypy709tf Tablets take 1 tab by mouth three times a day 30tabs R19.7 YAO Cervantes 05/29/2023 - 07/28/2023 Ssjehhol900996Vzpf Tablets 1 take 1 tab three time a day X B37.0 YAO Cervantes 04/24/2023 - 04/24/2023 Medications Administered in Office Medication SIG Qnty Indications Ordering Provider Date Injection Betamethasone Acetate & Sodium Phosphate 3 MG Of EachInjection Satish Oviedo 03/11/2023 Immunizations CPT Code Status Date Vaccine Lot # [id number] Given 10/04/2021 Influenza Virus Vaccine H igh Dose Quadrivalent 88041 Given 07/07/2021 Moderna (Covid- 19) vaccine, mRNA, LNP-S, PF, 100 mcg/ 0.5 mL 93124 Given 10/18/2020 Influenza Virus Vaccine H igh Dose Quadrivalent 54131 Given 09/08/2018 Prevnar 13 Pneu mococcal Conjugate Vac 13 Valent For Im Use 76723 Given 08/17/2018 Influenza Virus Vaccine, Split Virus, Preservative Free Im 0.5ML 70062 Given 08/16/2017 Influenza Virus Vaccine, Split Virus, Preservative Free Im 0.5ML 12753 Given 10/03/2013 Pneumo 23 Pneumococcal Va ccine [...] Range N ote Comprehensive Metabolic [place]/28/20[place] [facility] [place] [address] [place] [address] [phone] Sodium 142 mmol/L Normal 136-145 Potassium 4.3 mmol/L Normal 3.5-5.1 Chloride 108 mmol/L High 98-107 Carbon Dioxide 31 mmol/L Normal 21-32 [facility] Anion Gap 3.0 mmol/L Normal 1.0-15.0 Blood [...] 0.9 Ratio Low 1.2-2.3 Glyco Panel 07/28/[address] [address] [phone] Hemoglobin A1c 7.0 % High 3.8-5.6 Estimated Average Glucose 154 mg/dL High 70-126 2 CBC W/ Auto Diff 07/28/2023 [facility] [place] [address] [place] [address] [phone] White Blood Count 7.4 10^3/uL Normal 4.1-10.2 [...] 10^3/uL Normal 0.000-0.012 Laboratory test finding 06/02/[address] [address] [phone] Clostridium Difficile Toxin NEGATIVE Negative 3 Laboratory test finding 05/13/[address] [address] [phone] Glucose-Accuc heck 252 mg/dL High 70-99 Laboratory test finding 05/13/[address] [address] [phone] Glucose-Accuc heck 169 mg/dL High 70-99 CBC W/ Auto Diff 05/13/[address] [address] [phone] White Blood Count 5.9 10^3/uL Normal 4.1-10.2 [...] 10^3/uL Normal 0.000-0.012 Comprehensive Metabolic Panel 05/13/[address] [address] [phone] Sodium 138 mmol/L Normal 136-145 Potassium 4.0 mmol/L Normal 3.5-5.1 Chloride 110 mmol/L High 98-107 Carbon Dioxide 26 mmol/L Normal 21-32 [facility] Anion Gap 2.0 mmol/L Normal 1.0-15.0 Blood [...] Ratio Low 1.2-2.3 Laboratory test finding 05/13/[address] [address] [phone] Magnesium 2.0 mg/dL Normal 1.8-2.4 Laboratory test finding 05/12/2023 [facility] [place] [address] [place] [address] [phone] Glucose-Accu check 146 mg/dL High 70-99 5 Laboratory test finding 05/12/2023 [facility] [place] [address] [place] [address] [phone] Magnesium 1.6 mg/dL Low 1.8-2.4 Comprehensive Metabolic Panel 05/12/2023 [facility] [place] [address] [place] [address] [phone] Sodium 138 mmol/L Normal 136-145 Potassium 3.9 mmol/L Normal 3.5-5.1 Chloride 110 mmol/L High 98-107 Carbon Dioxide 27 mmol/L Normal 21-32 [facility] Anion Gap 1.0 mmol/L Normal 1.0-15.0 Blood Urea Nitrogen 23 mg/dL High 7-18 Creatinine,Serum 0.93 mg/dL Normal 0.55-1.02 GFR 58 6 BUN/Creatinine Ratio 24.6 High 10.0-20.00 Glucose 165 [...] 1.3-4.9 Albumin/Globulin Ratio 0.7 Ratio Low 1.2-2.3 CBC W/ Auto Diff 05/12/[address] [address] [phone] White Blood Count 4.9 10^3/uL Normal 4.1-10.2 [...] 10^3/uL Normal 0.000-0.012 Laboratory test finding 05/12/[address] [address] [phone] Glucose-Accucheck 182 mg/dL High 70-99 7 Laboratory test finding 05/12/[address] [address] [phone] Glucose-Accucheck 128 mg/dL High 70-99 Laboratory test finding 05/11/[address] [address] [phone] Glucose-Accucheck 141 mg/dL High 70-99 8 Laboratory test finding 05/11/2023 [facility] [place] [address] [place] [address] [phone] Glucose-Accucheck 146 mg/dL High 70-99 9 Laboratory test finding 05/11/2023 [facility] [place] [address] [place] [address] [phone] Glucose-Accucheck 195 mg/dL High 70-99 10 Laboratory test finding 05/11/2023 [facility] [place] [address] [place] [address] [phone] Glucose-Accucheck 171 mg/dL High 70-99 11 Laboratory test finding 05/11/[address] [address] [phone] Vancomycin,Trough 10.1 ug/mL Normal 10.0-20. 0 Laboratory test finding 05/11/[address] [address] [phone] Vancomycin,Peak 32.5 ug/mL Normal 20.0-40. 0 Laboratory test finding 05/10/[address] [address] [phone] Glucose-Accucheck 176 mg/dL High 70-99 12 Laboratory test finding 05/10/[address] [address] [phone] Glucose-Accucheck 183 mg/dL High 70-99 13 Laboratory test finding 05/10/[address] [address] [phone] Glucose-Accucheck 165 mg/dL High 70-99 14 Laboratory test finding 05/10/[address] [address] [phone] MRSA Screen (Molecular) NEGATIVE Negative Laboratory test finding 05/10/[address] [phone] Glucose-Accucheck 88 mg/dL Normal 70-99 CBC W/ Auto Diff 05/10/2023 [address] [place] [address] [phone] White Blood Count 5.2 10^3/uL Normal 4.1-10.2 [...] 0.000 10^3/uL Normal 0.000-0.012 Basic Metabolic Panel 05/10/2023 [facility] [place] [address] [place], [place] [id number] [phone] Sodium 141 mmol/L Normal 136-145 Potassium 3.8 mmol/L Normal 3.5-5.1 Chloride 112 mmol/L High 98-107 Carbon Dioxide 26 mmol/L Normal 21-32 [facility] Anion Gap 3.0 mmol/L Normal 1.0-15.0 Blood Urea Nitrogen 14 mg/dL Normal 7-18 Creatinine,Serum 0.95 mg/dL Normal 0.55-1.02 GFR 56 15 BUN/Creatinine Ratio 14.7 Normal 10.0-20.00 Glucose 86 mg/dL Normal 70-99 Osmolality,Calculated 281 Normal 275-295 Calcium 9.0 mg/dL Normal 8.5-10.1 Laboratory test finding 05/09/[address] [phone] Glucose-Accucheck 228 mg/dL High 70-99 16 Laboratory test finding 05/09/[address] [address] [phone] Glucose-Accucheck 145 mg/dL High 70-99 17 Laboratory test finding 05/09/[address] [address] [phone] Magnesium 2.0 mg/dL Normal 1.8-2.4 Basic Metabolic Panel 05/09/[address] [address] [phone] Sodium 137 mmol/L Normal 136-145 Potassium 3.6 mmol/L Normal 3.5-5.1 Chloride 108 mmol/L High 98-107 Carbon Dioxide 24 mmol/L Normal 21-32 [facility] Anion Gap 5.0 mmol/L Normal 1.0-15.0 Blood Urea Nitrogen 18 mg/dL Normal 7-18 Creatinine,Serum 1.07 mg/dL High 0.55-1.02 GFR 49 18 BUN/Creatinine Ratio 16.8 Normal 10.0-20.00 Glucose 118 mg/dL High 70-99 Osmolality,Calculated 277 Normal 275-295 Calcium 8.4 mg/dL Low 8.5-10.1 Laboratory test finding 05/09/[address] [address] [phone] Glucose-Accucheck 114 mg/dL High 70-99 19 Laboratory test finding 05/09/[address] [address] [phone] Glucose-Accucheck 210 mg/dL High 70-99 20 Laboratory test finding 05/09/2023 [facility] [place] [address] [place] [address] [phone] Glucose-Accucheck 105 mg/dL High 70-99 21 CBC W/ Auto Diff 05/09/2023 [facility] [place] [address] [place] [address] [phone] White Blood Count 6.6 10^3/uL Normal 4.1-10. 2 Red Blood Count 4.21 10^6/uL Normal 3.80-5.20 [...] 0.000 10^3/uL Normal 0.000-0.012 Laboratory test finding 05/08/[address] [phone] Glucose-Accucheck 275 mg/dL High 70-99 Xpert MRSA/SA Soft Skin & Tiss 05/08/[address] [phone] MRSA, Soft Skin/Tissue NEGATIVE Negative Staph Aureus, Soft Skin/Tissue NEGATIVE Negat estehla 22 Laboratory test finding 05/08/[address] [id number] [phone] Gram Stain GSGPC^Gram Posit <SEE NOTE> 23 Wound Culture 05/08/[address] [id number] [phone] O:Entcspe Enterococcus spe <SEE NOTE> 24 Wound Culture Quantity: 25 O:Strfae Enterococ faecal <SEE NOTE> 26 Gram Positive 05/08/[address] 8857919 [phone] Ampicillin ^2 Susceptible Gentamicin 500 ^<=500 Susceptible Linezolid ^<=1 Susceptible Penicillin ^4 Susceptible Vancomycin ^2 Susceptible Laboratory test finding 04/15/[address] 9765034 [phone] C-Reactive Protein 3.22 mg/dL High 0.00-0.30 27 CBC W/ Auto Diff 04/15/[address] [address] [phone] White Blood Count 5.1 10^3/uL Normal 4.1-10.2 [...] 0.000 10^3/uL Normal 0.000-0.012 Basic Metabolic Panel 04/15/[address] [address] [phone] Sodium 138 mmol/L Normal 136-145 Potassium 4.0 mmol/L Normal 3.5-5.1 Chloride 108 mmol/L High 98-107 Carbon Dioxide 26 mmol/L Normal 21-32 [facility] Anion Gap 4.0 mmol/L Normal 1.0-15.0 Blood Urea Nitrogen 24 mg/dL High 7-18 Creatinine,Serum 1.20 mg/dL High 0.55-1.02 GFR 43 28 BUN/Creatinine Ratio 20.1 High 10.0-20.00 Glucose 171 mg/dL High 70-99 Osmolality,Calculated 285 Normal 275-295 Calcium 8.9 mg/dL Normal 8.5-10.1 Laboratory test finding 04/15/[address] [address] [phone] Sedimentation Rate, Automated 33 mm/hr High 0-30 CBC W/O Diff 04/14/[address] [address] [phone] White Blood Count 5.9 10^3/uL Normal 4.1-10. 2 Red Blood Count 4.32 10^6/uL Normal 3.80-5.20 Hemoglobin 12.5 g/dL Normal 11.5-15.5 Hematocrit 37.6 % Normal 35-46 Mean Corpuscular Volume 87.0 fL Normal 82.0-98.0 Mean Corpuscular Hemoglobin 28.9 pg Normal 27.0-34. 0 Mean Corpuscular Hgb Conc 33.2 g/dL Normal 31.0-36.0 RDW-SD 47.6 fL Normal 37-49 RDW-CV 14.8 % Normal 11.8-14.8 Platelet Count 178 10^3/uL Normal 150-360 Basic Metabolic Panel 04/14/[address] [address] [phone] Sodium 137 mmol/L Normal 136-145 Potassium 4.1 mmol/L Normal 3.5-5.1 Chloride 106 mmol/L Normal 98-107 Carbon Dioxide 26 mmol/L Normal 21-32 [facility] Anion Gap 5.0 mmol/L Normal 1.0-15.0 Blood Urea Nitrogen 19 mg/dL High 7-18 Creatinine,Serum 1.22 mg/dL High 0.55-1.02 GFR 42 29 BUN/Creatinine Ratio 15.6 Normal 10.0-20.00 Glucose 138 mg/dL High 70-99 Osmolality,Calculated 279 Normal 275-295 Calcium 8.6 mg/dL Normal 8.5-10.1 Xpert MRSA/SA Soft Skin & Tiss 04/13/[address] [address] [phone] MRSA, Soft Skin/Tissue NEGATIVE Negative 30 Staph Aureus, Soft Skin/Tissue NEGATIVE Negat esthela 31 Wound Culture 04/13/[address] [address] [phone] O:Straga Strep agalactiae <SEE NOTE> 32 Wound Culture Quantity: 33 Laboratory test finding 04/13/2023 [facility] [place] [address] [place] [address] [phone] Gram Stain GSEPI^Epithelial <SEE NOTE> 34 CBC W/ Auto Diff 04/13/2023 [facility] [place] [address] [place] [address] [phone] White Blood Count 7.0 10^3/uL Normal 4.1 [...] 0.000 10^3/uL Normal 0.000-0.012 Glyco Panel 04/13/[address] [address] [phone] Hemoglobin A1c 7.5 % High 3.8-5.6 Estimated Average Glucose 169 mg/dL High 70-126 35 Comprehensive Metabolic Panel 04/13/[address] [address] [phone] Sodium 134 mmol/L Low 136-145 Potassium 3.9 mmol/L Normal 3.5-5.1 Chloride 104 mmol/L Normal 98-107 Carbon Dioxide 24 mmol/L Normal 21-32 [facility] Anion Gap 6.0 mmol/L Normal 1.0-15.0 Blood [...] Ratio Low 1.2-2.3 Laboratory test finding 04/13/[address] [address] [phone] Thyroid Stimulating Hormone 1.260 uIU/mL Normal 0.358-3.74 Laboratory test finding 04/12/[address] [address] [phone] Sedimentation Rate, Automated 33 mm/hr High 0-30 [...] of Medical Care in Diabetes" of the [employer] includes the following interpretations of [...] be used to alter drug dosages. 5 Followed protocol 6 UNITS= mL/min/1.73m squared Unable to flag low results Results less than 60 may warrant further investigation Patients race is not known. If the patient is , multiply the calculated GFR result provided by 1.21. GFR Estimate should not be used to alter drug dosages. 7 Followed protocol 8 Followed protocol 9 Followed protocol 10 Followed protocol 11 Followed protocol 12 Followed protocol 13 Followed protocol 14 Followed protocol 15 UNITS= mL/min/1.73m squared Unable to flag low results Results less than 60 may warrant further investigation Patients race is not known. If the patient is , multiply the calculated GFR result provided by 1.21. GFR Estimate should not be used to alter drug dosages. 16 Followed protocol 17 Followed protocol 18 UNITS= mL/min/1.73m squared Unable to flag low results Results less than 60 may warrant further investigation Patients race is not known. If the patient is , multiply the calculated GFR result provided by 1.21. GFR Estimate should not be used to alter drug dosages. 19 Followed protocol 20 Followed protocol 21 Followed protocol 22 XPert MRSA/SA Soft S kin Tissue Assay is included as part of Wound Culture. Further ID and Sensitivities to follow. 23 GSGPC^Gram Positive Cocci 1^1+ Gram Positive Cocci GSWBC^White Blood Cells NW^No WBC's Seen 24 Enterococcus species 25 Heavy Growth 26 Enterococ faecalis - (Group D) 27 Diagnosis cellulitis 28 UNITS= mL/min/1.73m squared Unable to flag low results Results less than 60 may warrant further investigation Patients race is not known. If the patient is , multiply the calculated GFR result provided by 1.21. GFR Estimate should not be used to alter drug dosages. 29 UNITS= mL/min/1.73m squared Unable to flag [...] of Medical Care in Diabetes" of the [employer] includes the following interpretations of [...] W/Current Medications In Outpt MR Completed 04/02/2023 21554 Inject/Drain Art hrocentesis Major Joint/Bursa/Ganglion Cyst Completed 03/11/2023 J0702 Injection Betame thasone Acetate & Sodium Phosphate 3 MG Of Each Completed 03/11/2023 3078F Most Recent Diastolic BP <80 mm HG Completed 03/11/2023 3077F Most Recent Systolic BP >/=1 40mm HG Completed 03/11/2023 3008F Body Mass Index (BMI), Docum ented (pv) Completed 03/11/2023 [address] Inject/Drain Art hrocentesis Major Joint/Bursa/Ganglion Cyst Completed Medical Devices Description No Information Available Encounters Type Date Location Provider Dx Diagnosis Office Visit 08/07/2023 2:00p [facility] Zane Cervantes MD I25.10 Athscl heart disease of [place] coronary artery w/o ang pctrs I48.0 Paroxysmal atrial fi brillation I10 Essential (primary) hypertension E78.5 Hyperlipidemia, unsp ecified R09.89 Oth symptoms and sig ns involving the circ and resp systems 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 Z68.31 Body mass index [BMI ] 31.0-31.9, adult Office Visit 07/28/2023 11:30a [facility] Moise Reed DO R19.7 Diarrhea, unspecified 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 I48.0 Paroxysmal atrial fi brillation I10 Essential (primary) hypertension Z79.4 custodial (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 insulin Z79.85 Lng trm (crnt) use i njectable non-insulin antidiabetic drugs Z68.31 Body mass index [BMI ] 31.0-31.9, adult Office Visit 05/29/2023 3:30p [facility] YAO Cervantes Z09 Encntr for f/u exam aft trtmt for cond oth than malig neoplm R19.7 Diarrhea, unspecifie d E11.621 Type 2 diabetes shawna itus with foot ulcer Z68.30 Body mass index [BMI ] 30.0-30.9, adult Office Visit 05/08/2023 2:40p [facility] Herve Carrillo DO A41.9 Sepsis, unspecified organism Office Visit 04/24/2023 11:30a [facility] YAO Cervantes Z09 Encntr for f/u exam aft trtmt for cond oth than malig neoplm B37.0 Candidal stomatitis M25.562 Pain in left knee Z68.33 Body mass index [BMI ] 33.0-33.9, adult Office Visit 03/11/2023 3:00p [facility] Moise Reed DO I48.0 Paroxysmal atrial fibrillation L03.116 Cellulitis of left l ower limb I10 Essential (primary) hypertension M25.562 Pain in left knee E78.00 Pure hypercholestero lemia, unspecified E11.9 Type 2 diabetes shawna itus without complications 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 Z68.30 Body mass index [BMI ] 30.0-30.9, adult Assessments Date Code Description Provider 08/07/2023 I25.10 Athscl heart dis ease of [place] coronary artery w/o ang pctrs Zane Cervantes MD 08/07/2023 I48.0 Paroxysmal atrial fibrillati on Zane Cervantes MD 08/07/2023 I10 Essential (primary) hyperten micaela Zane Cervantes MD 08/07/2023 E78.5 Hyperlipidemia, unspecified Zane Cervantes MD 08/07/2023 R09.89 Oth symptoms and signs involving the circ and resp systems Zane Cervantes MD 08/07/2023 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 Zane Cervantes MD 08/07/2023 Z68.31 Body mass index [BMI] 31.0-3 1.9, adult Zane Cervantes MD 07/28/2023 R19.7 Diarrhea, unspecified [facility], DO 07/28/2023 E11.621 Type 2 diabetes mellitus wit h foot ulcer [facility], DO 07/28/2023 L97.509 Non-pressure chr onic ulcer oth prt unsp foot w unsp severity [facility], DO 07/28/2023 I48.0 Paroxysmal atrial fibrillati on [facility], DO 07/28/2023 I10 Essential (primary) hyperten micaela [facility], DO 07/28/2023 Z79.4 custodial (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 i nsulin [facility], DO 07/28/2023 Z79.85 Lng trm (crnt) u se injectable non-insulin antidiabetic drugs [facility], DO 07/28/2023 Z68.31 Body mass index [BMI] 31.0-3 1.9, adult [facility], DO 05/29/2023 Z09 Encntr for f/u e xam aft trtmt for cond oth than malig neoplm YAO Cervantes 05/29/2023 R19.7 Diarrhea, unspecified YAO Cervantes 05/29/2023 E11.621 Type 2 diabetes mellitus wit h foot ulcer YAO Cervantes 05/29/2023 Z68.30 Body mass index [BMI] 30.0-3 0.9, adult YAO Cervantes 05/08/2023 A41.9 Sepsis Herve asher, DO 04/24/2023 Z09 Encntr for f/u e xam aft trtmt for cond oth than malig neoplm YAO Cervantes 04/24/2023 B37.0 Candidal stomatitis YAO Cervantes 04/24/2023 M25.562 Pain in left knee [place] YAO Rojas 04/24/2023 Z68.33 Body mass index [BMI] 33.0-3 3.9, adult Renéeoralia YAO Smith 04/02/2023 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, right knee Moody Bakernnamdi, DO 04/02/2023 M25.561 Pain in right knee Moody Covarrubias vitaziajabier, DO 03/11/2023 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, right knee Moody Bakernnamdi, DO 03/11/2023 M25.561 Pain in right knee Moody finnde, DO 03/11/2023 I48.0 Paroxysmal atrial fibrillati on Moise Reed, DO 03/11/2023 L03.116 Cellulitis of left lower tamayo b Moise Reed, DO 03/11/2023 I10 Essential (primary) hyperten micaela Moise Reed, DO 03/11/2023 M25.562 Pain of knee region Moise Reed, DO 03/11/2023 E78.00 Pure hypercholesterolemia, u nspecified Moies Reed, DO 03/11/[address]23 [address]11[address], DO 03/11/2023 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 Moise Reed, DO 03/11/2023 Z68.30 Body mass index [BMI] 30.0-3 0.9, adult Moise Reed DO Plan of Treatment Future Appointment(s):* 02/05/2024 2:00 pm - Zane Cervantes MD at [facility] * 11/03/2023 11:00 am - Moise Reed DO at [facility] Functional Status Description No Information Available Mental Status Description No Information Available Referrals Refer to Reason for Referral Status Appt Diana Pham CRNP Pulmonary Referral Closed 04/01/2023 [address] [facility] [address] Moody Harvey DO Osteoarthritis o f Left knee Please call Kandi nadrews to set up appt [phone] Closed [address] [facility] [phone]
--- OUTSIDE RECORDS SUMMARY | 2023-10-17 00:43 | External Medical Summary | Continuity of Care Document ---
Author Name TENKONRADTYE DO Address [address] [place] [address] Phone [phone] Organization Pending sale to [facility] Address [address] [place] [address] Phone [phone] Care Team Providers Care Machinery Mover Name Role Phone Tye Reed DO Care Team Information Lead Clinical Research Coordinator [phone] ISABELA HARVEY DO Care Team Information Rec eiver [phone] Tye Reed DO Primary Care Physician Problems Active [...] Date Description Comments Sex Unknown ETOH Use 03/11/2023 Never used alcohol Tobacco Use Reviewed: 04/24/23 Patient has never smok ed Recreational Drug Use 03/11/2023 Never Used Drugs Smoking Status Reviewed: 04/24/23 Patient has never sm oked Allergies and adverse reactions Active Allergies Criticality Reaction | Severity Comments Date Meloxicam Unable to assess criticality Confusion 05/16/2021 Metformin Unable to assess criticality Diarrhea 05/16/2021 Medications Active Medications SIG Qnty Indications Order ing Provider Date [id number]/ML Suspension swish orally twice a day for 7 days 60ml B37.0 YAO Cervantes 04/24/2023 Ozempic (0.25 Or 0.5 MG/Dose)2mg/3ML Solution Pen-Inject 0.5 mg subcut every week 3ml Tye Reed, DO 04/06/2023 Synvisc Nam36lg/6ML Soln Prefill Syringe one syringe injected intra-articular in to right knee. dx m17.11 6ml Isabela Harvey, DO 03/13/2023 Mhhsybavgx332sl Tablets 1 by mouth three times a day 90tabs Tye Reed, DO 12/15/2022 Onetouch Delica Lancets Extra Fine 33GMisc use twice a day; dx: e11.9 200units Tye Reed, DO 10/20/2022 Meclizine LXC57nb Tablets 1 tab by mouth three times a day as needed 60tabs R42 Tye Reed, DO 04/02/2022 Tresiba Xbbnhpaop955Wjyl/ML Solution Pen-Inject inject 24 units am and 32 units pm 9ml Tye Reed, DO 04/02/2022 Onetouch UltraStrips test twice daily dx e11.9 100units Tye Reed, DO 03/18/2022 Levothyroxine Tmdjdg17wgv Tablets 1 tab by mouth every day 90tabs Tye Reed, DO 12/23/[address] 1 cap by mouth every day 90tabs Tye Reed, DO 06/21/2021 Amoxicillin/Clavulana te Lttbdebcd848-744iv Tablets 1 tab by mouth three times a day Unknown Nsojkkpeann5jw Tablets 1 tab by mouth three times a day as needed, may take 1 extra tablet daily according to blood sugar readings. 100tabs YAO Cervantes Calcium 600 1 tab by mouth every day Unknown Atorvastatin Hbcywvd50as Tablets 1 tab by mouth every night 90tabs Kyle Cervantes MD Dawn-3 Krill Bbg716as Capsules 2 caps by mouth every day Unknown Vitamin T980qfr (1000 Ut) Capsules 1 cap by mouth every day 90caps Unknown Multivitamin 1 tab by mouth every day Unknown Vitamin B-390446lcc Tablets Sub 1 tab by mouth every day Unknown Probiotic 1 cap by mouth every day Unknown Nitroglycerin0.4mg Tablets Sub 1 tablet at first sign of attack; may repeat every 5 min up to 3 tabs, if no relief seek medical help. 25tabs Unknown Potassium Dmflkmzmm926(99K) mg Tablets 1 tab by mouth every day Unknown Metoprolol Knjcrhbb33jc Tablets 1 tab by mouth twice a day 180tabs Kyle Cervantes MD Cawzbzw8ax Tablets 1 tab by mouth twice a day 180tabs Kyle Cervantes MD Clopidogrel Gfxqzojgp14nw Tablets 1 tab by mouth every day 30tabs Tye Reed DO History Medications Vancomycin QEB947lo Capsules 1 cap by mouth bid. 56caps YAO Cervantes 05/29/2023 - 07/28/2023 Arwjrluyyiigh681sq Tablets take 1 tab by mouth three times a day 30tabs R19.7 YAO Cervantes 05/29/2023 - 07/28/2023 Nnfulfqx094482Hwdn Tablets 1 take 1 tab three time a day X B37.0 YAO Cervantes 04/24/2023 - 04/24/2023 Medications Administered in Office Medication SIG Qnty Indications Ordering Provider Date Injection Betamethasone Acetate & Sodium Phosphate 3 MG Of EachInjection Satish Oviedo 03/11/2023 Immunizations CPT Code Status Date Vaccine Lot # [id number] Given 10/04/2021 Influenza Virus Vaccine H igh Dose Quadrivalent 23289 Given 07/07/2021 Moderna (Covid- 19) vaccine, mRNA, LNP-S, PF, 100 mcg/ 0.5 mL 25673 Given 10/18/2020 Influenza Virus Vaccine H igh Dose Quadrivalent 42643 Given 09/08/2018 Prevnar 13 Pneu mococcal Conjugate Vac 13 Valent For Im Use 54087 Given 08/17/2018 Influenza Virus Vaccine, Split Virus, Preservative Free Im 0.5ML 28173 Given 08/16/2017 Influenza Virus Vaccine, Split Virus, Preservative Free Im 0.5ML 32468 Given 10/03/2013 Pneumo 23 Pneumococcal Va ccine 2Yrs Or Older Vital Signs Date Vital Result Comment 07/28/2023 11:29am Height 64 inches 5'4" Weight 181.31 lb Weight 82.243 kg BMI (Body Mass Index) 31.1 kg/m2 BP Systolic 110 mmHg BP Diastolic 68 mmHg Body Temperature 97.2 F Heart Rate 80 /min Respiratory Rate 16 /min O2 % BldC Oximetry 97 % 05/29/2023 3:41pm Height 64 inches 5'4" Weight 180.12 lb Weight 81.705 kg BMI (Body Mass Index) 30.9 kg/m2 BP Systolic 118 mmHg BP Diastolic 64 mmHg Body Temperature 97.1 F Heart Rate 72 /min Respiratory Rate 18 /min O2 % BldC Oximetry 96 % Results Test Acquired Date Facility Test Result H/L Range N ote Comprehensive Metabolic Panel 07/28/2023 [facility] [place] [facility] [address] [place] [address] [phone] Sodium 142 mmol/L Normal 136-145 Potassium 4.3 mmol/L Normal 3.5-5.1 Chloride 108 mmol/L High 98-107 Carbon Dioxide 31 mmol/L Normal 21-32 [facility] Anion Gap 3.0 mmol/L Normal 1.0-15.0 Blood [...] 1.3-4.9 Albumin/Globulin Ratio 0.9 Ratio Low 1.2-2.3 CBC W/ Auto Diff 07/28/2023 [facility] [address] [place] [address] [phone] White Blood Count 7.4 10^3/uL Normal 4.1-10.2 [...] (Auto) 0.000 10^3/uL Normal 0.000-0.012 Glyco Panel 07/28/[address] [address] [phone] Hemoglobin A1c 7.0 % High 3.8-5.6 Estimated Average Glucose 154 mg/dL High 70-126 2 Laboratory test finding 06/02/[address] [address] [phone] Clostridium Difficile Toxin NEGATIVE Negative 3 Laboratory test finding 05/13/[address] [address] [phone] Glucose-Accuc heck 252 mg/dL High 70-99 Laboratory test finding 05/13/[address] [address] [phone] Glucose-Accuc heck 169 mg/dL High 70-99 CBC W/ Auto Diff 05/13/[address] [id number] [phone] White Blood Count 5.9 10^3/uL Normal 4.1-10.2 [...] 10^3/uL Normal 0.000-0.012 Comprehensive Metabolic Panel 05/13/[address] [address] [phone] Sodium 138 mmol/L Normal 136-145 Potassium 4.0 mmol/L Normal 3.5-5.1 Chloride 110 mmol/L High 98-107 Carbon Dioxide 26 mmol/L Normal 21-32 [facility] Anion Gap 2.0 mmol/L Normal 1.0-15.0 Blood [...] Ratio Low 1.2-2.3 Laboratory test finding 05/13/[address] [address] [phone] Magnesium 2.0 mg/dL Normal 1.8-2.4 Laboratory test finding 05/12/[address] [address] [phone] Glucose-Accuc heck 146 mg/dL High 70-99 5 Laboratory test finding 05/12/[address] [phone] Glucose-Accuc heck 128 mg/dL High 70-99 Laboratory test finding 05/12/[address] [address] [phone] Glucose-Accuc heck 182 mg/dL High 70-99 6 CBC W/ Auto Diff 05/12/[address] [phone] White Blood Count 4.9 10^3/uL Normal 4.1-10.2 [...] 0.000 10^3/uL Normal 0.000-0.012 Comprehensive Metabolic Panel 05/12/[address] [address] [phone] Sodium 138 mmol/L Normal 136-145 Potassium 3.9 mmol/L Normal 3.5-5.1 Chloride 110 mmol/L High 98-107 Carbon Dioxide 27 mmol/L Normal 21-32 [facility] Anion Gap 1.0 mmol/L Normal 1.0-15.0 Blood Urea Nitrogen 23 mg/dL High 7-18 Creatinine,Serum 0.93 mg/dL Normal 0.55-1.02 GFR 58 7 BUN/Creatinine Ratio 24.6 High 10.0-20.00 Glucose 165 [...] Ratio Low 1.2-2.3 Laboratory test finding 05/12/[address] [address] [phone] Magnesium 1.6 mg/dL Low 1.8-2.4 Laboratory test finding 05/11/[address] [address] [phone] Vancomycin, Trough 10.1 ug/mL Normal 10.0-20.0 Laboratory test finding 05/11/[address] 1842332 [phone] Glucose-Acc ucheck 146 mg/dL High 70-99 8 Laboratory test finding 05/11/[address] 1868020 [phone] Glucose-Acc ucheck 195 mg/dL High 70-99 9 Laboratory test finding 05/11/[address] 6152226 [phone] Glucose-Acc ucheck 171 mg/dL High 70-99 10 Laboratory test finding 05/11/[address] 2623484 [phone] Glucose-Acc ucheck 141 mg/dL High 70-99 11 Laboratory test finding 05/11/[address] [id number] [phone] Vancomycin, Peak 32.5 ug/mL Normal 20.0-40.0 Laboratory test finding 05/10/[address] [address] [phone] Glucose-Acc ucheck 176 mg/dL High 70-99 12 Laboratory test finding 05/10/[address] 1850860 [phone] Glucose-Acc ucheck 183 mg/dL High 70-99 13 Laboratory test finding 05/10/[address] 1208682 [phone] Glucose-Acc ucheck 165 mg/dL High 70-99 14 Laboratory test finding 05/10/[address] [phone] MRSA Screen (Molecular) NEGATIVE Negative Laboratory test finding 05/10/[address] 1608037 [phone] Glucose-Acc ucheck 88 mg/dL Normal 70-99 CBC W/ Auto Diff 05/10/[address] [address] [phone] White Blood Count 5.2 10^3/uL Normal 4.1-10.2 [...] 10^3/uL Normal 0.000-0.012 Basic Metabolic Panel 05/10/[address] [address] [phone] Sodium 141 mmol/L Normal 136-145 Potassium 3.8 [...] mg/dL Normal 8.5-10.1 Laboratory test finding 05/09/[address] 8062963 [phone] Glucose-Accucheck 145 mg/dL High 70-99 16 Laboratory test finding 05/09/[address] [address] [phone] Magnesium 2.0 mg/dL Normal 1.8-2.4 Basic Metabolic Panel 05/09/[address] [address] [phone] Sodium 137 mmol/L Normal 136-145 Potassium 3.6 mmol/L Normal 3.5-5.1 Chloride 108 mmol/L High 98-107 Carbon Dioxide 24 mmol/L Normal 21-32 [facility] Anion Gap 5.0 mmol/L Normal 1.0-15.0 Blood Urea Nitrogen 18 mg/dL Normal 7-18 Creatinine,Serum 1.07 mg/dL High 0.55-1.02 GFR 49 17 BUN/Creatinine Ratio 16.8 Normal 10.0-20.00 Glucose 118 mg/dL High 70-99 Osmolality,Calculated 277 Normal 275-295 Calcium 8.4 mg/dL Low 8.5-10.1 Laboratory test finding 05/09/[address] [address] [phone] Glucose-Accucheck 114 mg/dL High 70-99 18 Laboratory test finding 05/09/[address] [phone] Glucose-Accucheck 210 mg/dL High 70-99 19 Laboratory test finding 05/09/[address] [address] [phone] Glucose-Accucheck 105 mg/dL High 70-99 20 Laboratory test finding 05/09/2023 [facility] [address] [place] [address] [phone] Glucose-Accucheck 228 mg/dL High 70-99 21 CBC W/ Auto Diff 05/09/2023 [facility] [address] [place] [address] [phone] White Blood Count 6.6 10^3/uL Normal 4.1-10. [...] 10^3/uL Normal 0.000-0.012 Laboratory test finding 05/08/[address] [phone] Glucose-Accucheck 275 mg/dL High 70-99 Xpert MRSA/SA Soft Skin & Tiss 05/08/[address] [phone] MRSA, Soft Skin/Tissue NEGATIVE Negative Staph Aureus, Soft Skin/Tissue NEGATIVE Negat esthela 22 Laboratory test finding 05/08/[address] 7891245 [phone] Gram Stain GSGPC^Gram Posit <SEE NOTE> 23 Wound Culture 05/08/[address] 7071952 [phone] O:Entcspe Enterococcus spe <SEE NOTE> 24 Wound Culture Quantity: 25 O:Strfae Enterococ faecal <SEE NOTE> 26 Gram Positive 05/08/[address] 8735044 [phone] Ampicillin ^2 Susceptible Gentamicin 500 ^<=500 Susceptible Linezolid ^<=1 Susceptible Penicillin ^4 Susceptible Vancomycin ^2 Susceptible Laboratory test finding 04/15/[address] [address] [phone] Sedimentation Rate, Automated 33 mm/hr High 0-30 Laboratory test finding 04/15/[address] 0743651 [phone] C-Reactive Protein 3.22 mg/dL High 0.00-0. 30 27 CBC W/ Auto Diff 04/15/[address] [address] [phone] White Blood Count 5.1 10^3/uL Normal 4.1-10. 2 Red Blood Count 4.44 10^6/uL Normal 3.80-5.20 [...] 10^3/uL Normal 0.000-0.012 Basic Metabolic Panel 04/15/2023 [facility] [address] [place] [address] [phone] Sodium 138 mmol/L Normal 136-145 Potassium 4.0 mmol/L Normal 3.5-5.1 Chloride 108 mmol/L High 98-107 Carbon Dioxide 26 mmol/L Normal 21-32 [facility] Anion Gap 4.0 mmol/L Normal 1.0-15.0 Blood Urea Nitrogen 24 mg/dL High 7-18 Creatinine,Serum 1.20 mg/dL High 0.55-1.02 GFR 43 28 BUN/Creatinine Ratio 20.1 High 10.0-20.00 Glucose 171 mg/dL High 70-99 Osmolality,Calculated 285 Normal 275-295 Calcium 8.9 mg/dL Normal 8.5-10.1 CBC W/O Diff 04/14/[address] [address] [phone] White Blood Count 5.9 10^3/uL Normal 4.1-10.2 [...] 10^3/uL Normal 150-360 Basic Metabolic Panel 04/14/[address] [address] [phone] Sodium 137 mmol/L Normal 136-145 Potassium 4.1 mmol/L Normal 3.5-5.1 Chloride 106 mmol/L Normal 98-107 Carbon Dioxide 26 mmol/L Normal 21-32 [facility] Anion Gap 5.0 mmol/L Normal 1.0-15.0 Blood Urea Nitrogen 19 mg/dL High 7-18 Creatinine,Serum 1.22 mg/dL High 0.55-1.02 GFR 42 29 BUN/Creatinine Ratio 15.6 Normal 10.0-20.00 Glucose 138 mg/dL High 70-99 Osmolality,Calculated 279 Normal 275-295 Calcium 8.6 mg/dL Normal 8.5-10.1 Xpert MRSA/SA Soft Skin & Tiss 04/13/[address] [address] [phone] MRSA, Soft Skin/Tissue NEGATIVE Negative 30 Staph Aureus, Soft Skin/Tissue NEGATIVE Negat esthela 31 Laboratory test finding 04/13/[address] [address] [phone] Thyroid Stimulating Hormone 1.260 uIU/mL Normal 0.358-3.74 Comprehensive Metabolic Panel 04/13/[address] [address] [phone] Sodium 134 mmol/L Low 136-145 Potassium 3.9 mmol/L Normal 3.5-5.1 Chloride 104 mmol/L Normal 98-107 Carbon Dioxide 24 mmol/L Normal 21-32 [facility] Anion Gap 6.0 mmol/L Normal 1.0-15.0 Blood Urea Nitrogen 19 mg/dL High 7-18 Creatinine,Serum 1.15 mg/dL High 0.55-1.02 GFR 45 32 BUN/Creatinine Ratio 16.6 Normal 10.0-20.00 Glucose 133 [...] 1.3-4.9 Albumin/Globulin Ratio 0.8 Ratio Low 1.2-2.3 Glyco Panel 04/13/[address] [address] [phone] Hemoglobin A1c 7.5 % High 3.8-5.6 Estimated Average Glucose 169 mg/dL High 70-126 33 CBC W/ Auto Diff 04/13/[address] [address] [phone] White Blood Count 7.0 10^3/uL Normal 4.1-10.2 Red Blood Count 4.39 10^6/uL Normal 3.80-5.20 [...] 0.000 10^3/uL Normal 0.000-0.012 Laboratory test finding 04/13/[address] [address] [phone] Gram Stain GSEPI^Epithelial <SEE NOTE> 34, 35 Wound Culture 04/13/[address] [address] [phone] O:Straga Strep agalactiae <SEE NOTE> 36 Wound Culture Quantity: 37 Laboratory test finding 04/12/[address] [address] [phone] Sedimentation Rate, Automated 33 mm/hr High 0-30 C-Reactive Protein 4.85 mg/dL High 0.00-0.30 38 CBC W/ Auto Diff 01/28/2023 DO Not Use MAX B lair WBC 5.6 10e9/L Normal 4.8-11.0 Red Blood Count 4.83 10e12/L Normal 4.20-5.40 Hemoglobin 13.7 g/dL Normal 12.0-16.0 Hematocrit 41.8 % Normal 37.0-47.0 MCV 86.5 fL Normal 80.0-100.0 MCH 28.4 pg Normal 28.0-34.0 MCHC 32.8 g/dL Normal 32.0-36.0 RDW 13.7 % Normal 11.5-14.5 Platelet Count 252 10e3/uL Normal 130-400 MPV 10.6 fL High 7.5-10.5 Gran % 53.6 % Normal 50.0-70.0 Lymph % 35.2 % Normal 20.0-40.0 [place] % 6.9 % Normal 2.0-10.0 Eos % 2.7 % Normal 0.5-5.0 Baso % 1.4 % Normal 0.0-3.0 Ig % 0.2 % High 0.0-0.0 NRBC % 0.0 % Normal 0.0-0.0 Gran # 3.0 10e9/L Normal 1.8-7.5 Lymph # 2.0 10e9/L Normal 1.5-3.5 [place] # 0.4 10e9/L Normal 0.0-0.7 Eos # 0.2 10e9/L Normal 0.0-0.7 Baso # 0.1 10e9/L Normal 0.0-0.2 Ig # 0.0 10e9/L Normal 0.0-1.0 NRBC # 0.0 10e9/L Normal 0.0-0.0 Comprehensive Metabolic Panel 01/28/2023 DO Not Use MAX Jamaal Glu 134 mg/dL High 65-110 BUN 20 mg/dL Normal 5-23 Crea 1.0 mg/dL Normal 0.4-1.5 39 GFR 53 mL/min Normal 40 Na 139 mmol/L Normal 135-145 K 4.5 mmol/L Normal 3.6-5.0 CL 106 mmol/L Normal 98-108 Co2 30 mmol/L Normal 23-32 CA 9.0 mg/dL Normal 8.7-10.5 TP 7.0 g/dL Normal 6.4-8.3 Alb 3.6 g/dL Normal 3.4-5.0 Bilt 0.6 mg/dL Normal 0.0-1.5 Sgot 31 U/L Normal 15-37 SGPT 30 U/L Normal 12-78 Alk 121 U/L High 45-117 Agap 7.5 mmol/L Low 8-15 Lipid Panel 01/28/2023 DO Not Use MAX Bl air Chol 135 mg/dL Normal 20-200 Trig 183 mg/dL Normal 20-200 LDL 45 mg/dL Normal 0-130 HDL 53 mg/dL Normal 35-60 41 Risk Ratio 2.55 Low 3.27-4.44 42 Glyco Panel 01/28/2023 DO Not Use MAX Bl air Hgba1c 7.2 %HbA1c High 3.8-5.6 43 A1c Glucose Est 160 mg/dL Normal 1 UNITS= mL/min/1.73m squared Unable to flag [...] of Medical Care in Diabetes" of the [place] [employer] includes the following interpretations of [...] alter drug dosages. 5 Followed protocol 6 Followed protocol 7 UNITS= mL/min/1.73m squared Unable to flag low results Results less than 60 may warrant further investigation Patients race is not known. If the patient is , multiply the calculated GFR result provided by 1.21. GFR Estimate should not be used to alter drug dosages. 8 Followed protocol 9 Followed protocol 10 [...] alter drug dosages. 16 Followed protocol 17 UNITS= mL/min/1.73m squared Unable to flag low results Results less than 60 may warrant further investigation Patients race is not known. If the patient is , multiply the calculated GFR result provided by 1.21. GFR Estimate should not be used to alter drug dosages. 18 Followed protocol 19 Followed protocol 20 Followed protocol 21 [...] Further ID and Sensitivities to follow. 32 UNITS= mL/min/1.73m squared Unable to flag low results Results less than 60 may warrant further investigation Patients race is not known. If the patient is , multiply the calculated GFR result provided by 1.21. GFR Estimate should not be used to alter drug dosages. 33 The estimated averag e glucose (eAG) is an approximation of the average glucose concentration in mg/dL over the last 90 days. The 2010 "Standards of Medical Care in Diabetes" of the [place] [employer] includes the following interpretations of Hemoglobin A1c results: >=6.5% Diagnostic of Diabetes 5.7-6.4% IFG/IGT ("Pre-Diabetes") 34 LEFT FOOT DRAINAGE 35 GSEPI^Epithelial Trang ls F^Few Epithelial Cells GSGPC^Gram Positive Cocci 1^1+ Gram Positive Cocci GSGPR^Gram Positive Rods F^Few Gram Positive Rods GSWBC^White Blood Cells F^Few WBC's 36 Strep agalactiae - ( Group B) 37 Moderate Growth Sensi Sensitivity Not Routinely Performed Heavy Growth Normal Skin Vanessa with Light Growth Presumptive Proteus 38 Diagnosis cellulitis, foot 39 IDMS TRACEABLE 40 The MDRD equation no rmalizes or adjusts GFR to a typical body size (body surface area=1.73 m2). 41 HDL CHOLESTEROL RISK RANGES FOR CORONARY ARTERY DISEASE MALE: INCREASED RISK : LESS THAN 45 MG/DL AVERAGE RISK : 45 MG/DL DECREASED RISK : GREATER THAN 45 MG/DL FEMALE: INCREASED RISK : LESS THAN 55 MG/DL AVERAGE RISK : 55 MG/DL DECREASED RISK : GREATER THAN 55 MG/DL 42 CHOL/HDL RATIO RISK MALE FEMALE 1/2 AVERAGE RISK 3.43 3.27 AVERAGE RISK 4.97 4.44 2X AVERAGE RISK 9.5 7.05 3X AVERAGE RISK 23.9 11.04 43 HEMOGLOBIN A1C LEVEL S ARE RELATED TO MEAN BLOOD GLUCOSE DURING THE PRECEDING 2-3 MONTHS. Procedures Date Code Description Status 07/28/2023 3078F Most Recent Diastolic BP <80 [...] W/Current Medications In Outpt MR Completed 04/02/2023 29221 Inject/Drain Art hrocentesis Major Joint/Bursa/Ganglion Cyst Completed 03/11/2023 J0702 Injection Betame thasone Acetate & Sodium Phosphate 3 MG Of Each Completed 03/11/2023 3078F Most Recent Diastolic BP <80 mm HG Completed 03/11/2023 3077F Most Recent Systolic BP >/=1 40mm HG Completed 03/11/2023 3008F Body Mass Index (BMI), Docum ented (pv) Completed 03/11/2023 69009 Inject/Drain Art hrocentesis Major Joint/Bursa/Ganglion Cyst Completed 02/04/2023 3079F Most Recent Diastolic BP 80- 90mm HG Completed 02/04/2023 3077F Most Recent Systolic BP >/=1 40mm HG Completed 02/04/2023 3008F Body Mass Index (BMI), Docum ented (pv) Completed Medical Devices Description No Information Available Encounters Type Date Location Provider Dx Diagnosis Office Visit 07/28/2023 11:30a [facility] Tye Reed DO R19.7 Diarrhea, unspecified 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 I48.0 Paroxysmal atrial fi brillation I10 Essential (primary) hypertension Z79.4 senior care (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 insulin Z79.85 Lng trm (crnt) use i njectable non-insulin antidiabetic drugs Z68.31 Body mass index [BMI ] 31.0-31.9, adult Office Visit 05/29/2023 3:30p [facility] YAO Cervantes Z09 Encntr for f/u exam aft trtmt for cond oth than malig neoplm R19.7 Diarrhea, unspecifie d E11.621 Type 2 diabetes shawna itus with foot ulcer Z68.30 Body mass index [BMI ] 30.0-30.9, adult Office Visit 05/08/2023 2:40p [facility] Herve Carrillo DO A41.9 Sepsis, unspecified organism Office Visit 04/24/2023 11:30a [facility] YAO Cervantes Z09 Encntr for f/u exam aft trtmt for cond oth than malig neoplm B37.0 Candidal stomatitis M25.562 Pain in left knee Z68.33 Body mass index [BMI ] 33.0-33.9, adult Office Visit 03/11/2023 3:00p [facility] Tye Reed, DO I48.0 Paroxysmal atrial fibrillation L03.116 Cellulitis of left l ower limb I10 Essential (primary) hypertension M25.562 Pain in left knee E78.00 Pure hypercholestero lemia, unspecified E11.9 Type 2 diabetes shawna itus without complications 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 Z68.30 Body mass index [BMI ] 30.0-30.9, adult Office Visit 02/04/2023 3:30p [facility] Sherly Sawyer PA-C M25.562 Pain in left knee Office Visit 02/04/2023 2:40p [facility] Venkatesh Cervantes MD I25.10 Athscl heart disease of [place] coronary artery w/o ang pctrs I48.0 Paroxysmal atrial fi brillation I10 Essential (primary) hypertension E78.00 Pure hypercholestero lemia, unspecified R09.89 Oth symptoms and sig ns involving the circ and resp systems 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 Z68.30 Body mass index [BMI ] 30.0-30.9, adult Assessments Date Code Description Provider 07/28/2023 R19.7 Diarrhea, unspecified Gilmar Reed, DO 07/28/2023 E11.621 Type 2 diabetes mellitus wit h foot ulcer Tye Reed, DO 07/28/2023 L97.509 Non-pressure chr onic ulcer oth prt unsp foot w unsp severity Tye Reed, DO 07/28/2023 I48.0 Paroxysmal atrial fibrillati on Tye [facility], DO 07/28/2023 I10 Essential (primary) hyperten micaela Tye Reed, DO 07/28/2023 Z79.4 senior care (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 i nsulin Tye Reed, DO 07/28/2023 Z79.85 Lng trm (crnt) u se injectable non-insulin antidiabetic drugs Tye Reed, DO 07/28/2023 Z68.31 Body mass index [BMI] 31.0-3 1.9, adult Tye Reed, DO 05/29/2023 Z09 Encntr for f/u e xam aft trtmt for cond oth than malig neoplm Renéeoralia Dawn Tom, CORRECTION WORKER 05/29/2023 R19.7 Diarrhea, unspecified Renéeoralia Dawn Santos, CORRECTION WORKER 05/29/2023 E11.621 Type 2 diabetes mellitus wit h foot ulcer Renéeoralia López Santos, CORRECTION WORKER 05/29/2023 Z68.30 Body mass index [BMI] 30.0-3 0.9, adult Renéeoralia López Santos, CORRECTION WORKER 05/08/2023 A41.9 Sepsis Herve asher, DO 04/24/2023 Z09 Encntr for f/u e xam aft trtmt for cond oth than malig neoplm Renéeoralia López Satnos, CORRECTION WORKER 04/24/2023 B37.0 Candidal stomatitis Renéeoralia López Santos, CORRECTION WORKER 04/24/2023 M25.562 Pain in left knee Renéeoralia Tucker aris, CORRECTION WORKER 04/24/2023 Z68.33 Body mass index [BMI] 33.0-3 3.9, adult Renéeoralia Dawn Tom, CORRECTION WORKER 04/02/2023 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, right knee Isabela Esphade, DO 04/02/2023 M25.561 Pain in right knee Isabela hernandezhade, DO 03/11/2023 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, right knee Isabela Doradode, DO 03/11/2023 M25.561 Pain in right knee Isabela Covarrubias spenshade, DO 03/11/2023 I48.0 Paroxysmal atrial fibrillati on Tye Reed, DO 03/11/2023 L03.116 Cellulitis of left lower tamayo b Tye Reed, DO 03/11/2023 I10 Essential (primary) hyperten micaela Tye Reed, DO 03/11/2023 M25.562 Pain of knee region Tye Reed, DO 03/11/2023 E78.00 Pure hypercholesterolemia, u nspecified Tye Reed, DO 03/11/[address]11[address] jules, DO 03/11/2023 Z79.01 parts counterman (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 a 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 Tye Reed, DO 03/11/2023 Z68.30 Body mass index [BMI] 30.0-3 0.9, adult Tye Reed DO 02/04/2023 M25.562 Pain of knee region Sherly Sawyer PA-C 02/04/2023 I25.10 Athscl heart dis ease [place] coronary artery w/o ang pctrs Kyle Cervantes MD 02/04/2023 I48.0 Paroxysmal atrial fibrillati on Kyle Cervantes MD 02/04/2023 I10 Essential (primary) hyperten micaela Kyle Cervantes MD 02/04/2023 E78.00 Pure hypercholesterolemia, u nspecified Kyle Cervantes MD 02/04/2023 R09.89 Oth symptoms and signs involving the circ and resp systems Kyle Cervantes MD 02/04/2023 Z79.01 senior care (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 a nticoagulmatt Cervantes MD 02/04/2023 Z68.30 Body mass index [BMI] 30.0-3 0.9, adult Kyle Cervantes MD Plan of Treatment Future Appointment(s):* 11/03/2023 11:00 am - [facility] * 08/07/2023 2:00 pm - Kyle Cervantes MD at [facility] 07/28/2023 - Tye Reed DO* R19.7 Diarrhea, unspecified * E11.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 Patient appears to be in atrial fibrillation. We will continue present treatment regime. * I10 Essential (primary) hypertension* Comments:* Blood pressure appears well controlled. We will continue present treatment regime. 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 Helpful resource: www.myplate.gov Exercise c faye performed. Helpful resource: www.nutrition.gov/topics/hwviogjw-cxg-uoxltng * All* Follow up:* 3 months Functional Status Description No Information Available Mental Status Description No Information Available Referrals Refer to Reason for Referral Status Appt Dean e Diana Walker CRNP Pulmonary Referral Closed 04/01/2023 [address] [address] Isabela Harvey DO Osteoarthritis o f Left knee Please call daughter, Kandi to set up appt [phone] Closed [address] [facility] [phone]
--- OUTSIDE RECORDS SUMMARY | 2023-10-17 00:44 | External Medical Summary | Continuity of Care Document ---
Author Name Unknown Address [address] [place] [address] Phone Organization [facility] Address [address] [place] [address] Phone Support Name Relationship Address Phone Kandi Swanson Daughter [address] [place] [address] Moise Reed Primary Care Provider [address] [place] [address] Chief Complaint and Reason for Visit Chief Complaint Laboratory Test Allergies, Adverse Reactions, Alerts Allergen Type Severity Reaction Last Updated Verified Status meloxicam Allergy Unknown Confusion,Confu micaela,Co nfusion,unknown,unknow n,Confusion,Conf May 18, 2023 4:32pm No Active metformin Allergy Unknown Diarrhea May 10 8:56am Yes Active Social History Smoking Status Status Start Date End Date Date of Observa tion Never smoked tobacco (finding) May 10, 2023 9:04am Observation Status Observation Response Date of Response Marital Status May 10, 2023 9:04am 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 April 9:04am Lives Family May 10, 2023 9:04am Alcohol/Drug Use None August 10, 2020 9:44am Smokeless Tobacco Use None May 10, 2023 9:04am Additional Data Assigned Sex Female Family History Relationship Condition Age at Onset Recorded Date/T rosalie Sibling Chronic obstructive pulmonary disease Unk nown Sibling Chronic obstructive pulmonary disease Unk nown Cerebrovascular accident (CVA) Unknown Parent Diabetes mellitus Unknown Sibling Malignant neoplasm Unknown Sibling Malignant neoplasm Unknown Parent Type 2 diabetes mellitus Unknown Problems Active Problems Medical Problem Onset Date Status Amputation of toe of left foot A ctive Repetitive strain injury July 31, 2014 Ac tive Comprehensive diabetic foot examination, type 2 DM, encounter for Active Fever Active Thrombus Active Diabetes Active Abnormal LFTs Active Foot ulcer Active Ulcer of foot May 13, 2018 Active Benign hypertension Active Coronary artery disease Active Diabetic foot ulcer Active CHF (congestive heart failure) A ctive Sensory ataxia Active Back pain Active Bacteremia Active Atrial fibrillation Active Atrial fibrillation Active Chronic anticoagulation Active Hyperlipidemia Active Hyponatremia Active Hypothyroidism May 22, 2015 Active CKD (chronic kidney disease) Act esthela Osteoarthritis Active Neuropathy Active Status post coronary artery bypass graft Active PVD (peripheral vascular disease) Active Hypophosphatemia Active Peripheral vertigo Active Weakness Active Status post hysterectomy Active Status post colonoscopy January 25, 2014 Active History of spinal surgery Active Diabetic ulcer of foot assoc iated with diabetes mellitus due to underlying condition, limited to breakdown of skin Active Triple vessel coronary artery disease Active GERD (gastroesophageal reflux disease) Active Gastroesophageal reflux disease Active Coronary artery disease with exertional angina Active Hypertension Active Pneumonia Active Disorder of thyroid Active Arthritis of knee, right Active Cellulitis of left foot Active Inactive/Resolved Problems Medical Problem Onset Date Status Knee pain, acute Resolved C. difficile colitis Resolved Hx of bilateral cataract extraction Resolved Diabetes Resolved Coronary artery disease Resolved Intractable back pain Resolved Generalized weakness Resolved Back pain Resolved Cellulitis Resolved Contusion of rib on left side Re solved Pain of left great toe October 30, 2014 Resol chet Diarrhea Resolved Diarrhea Resolved Neuropathy October 30, 2014 Resolved Troponin level elevated Resolved Vertigo Resolved Acute kidney injury superimposed on CKD Resolved Weakness Resolved Hx of cholecystectomy Resolved Hypoxia Resolved Sepsis Resolved History of colonoscopy Resolved History of back surgery Resolved PAF (paroxysmal atrial fibrillation) Resolved Right hip pain Resolved Triple vessel coronary artery disease Resolved Gastroesophageal reflux disease Resolved Abdominal pain Resolved Allergic rhinitis October 30, 2014 Resolved Bronchitis Resolved Chest pain Resolved Acute on chronic renal failure R esolved Blood clot in vein Resolved Fall Resolved Costochondritis, acute Resolved Cholecystitis without calculus R esolved Contusion of left knee Resolved Cellulitis of left foot Resolved Arthralgia of foot March 19, 2016 Resolved Arthritis of foot March 19, 2016 Resolved Pancreatitis, acute Resolved Dehydration Resolved Hypokalemia Resolved Medications Medication Status Dose Units Route Directions Qty Days St art Date End Date Instructions Levothyroxine Sodium (Tirosint) 75 mcg capsule Disconti nued 75 MCG PO daily 90 90 Februar y 2019 1:00am Februa ry 2020 10:17a m Gabapentin Disconti nued 0 PO .COMPLEX 210 30 January 24, 2020 12:00May 01, 2020 11:00a m 300mg capsules, 2 capsules in AM, 2 Capsules at lunchtime, and 3 capsules at bedtime by mouth. Metoprolol Tartrate (Lopressor) 25 mg tablet Disconti nued 25 MG PO Twice Daily 60 January 24, 2020 10:49am Septem shola 2019 11:58a m Apixaban (Eliquis) 2.5 mg tablet Disconti nued 5 MG PO Twice Daily 60 February 02, 2020 10:05am May 01, 2020 10:00a m Meclizine Hcl (Wal-Dram 2) 25 mg tablet Disconti nued 25 MG PO TID March 01, 2020 12:00am May 01, 2020 10:56a m Linagliptin (Tradjenta) 5 mg tablet Disconti nued 5 MG PO daily April 30, 2020 12:00am May 01, 2020 10:57a m Apixaban (Eliquis) 5 mg tablet Disconti nued 5 MG PO Twice Daily May 01, 2020 12:00am Septem 2019 2:54pm Clopidogrel Bisulfate (Clopidogrel) 75 mg tablet Disconti nued 75 MG PO 3 times per week May 01, 2020 10:00am Octobe r 2019 10:03a m Linagliptin (Tradjenta) 5 mg tablet Disconti nued 5 MG PO daily May 01, 2020 12:00am Octobe r 2019 10:00a m Atorvastatin Calcium (Lipitor) 40 mg tablet Disconti nued 40 MG PO Every Night May 07, 2020 9:59am [facility] er 2019 3:49pm Glimepiride Disconti nued 4 MG PO Every Morning May 17, 2020 10:43am Octobe r 2019 11:39a m administer with breakfast Lancets Disconti nued 0 .R[facility]TE .[facility] 12:00am May 23, 2021 7:48am As directed twice a day Dx E11.9 Blood Sugar Diagnostic (Onetouch Ultra Blue Test Strip) strip Disconti nued 0 .ROUTE .MEDSUPPLY [facility] 2019 12:00May 23, 2021 7:48am As directed twice a day Dx E11.9 Metoprolol Tartrate (Lopressor) 25 mg tablet Disconti nued 25 MG PO Twice Daily 60 2019 11:58am January 22, 2021 9:46am Apixaban (Eliquis) 5 mg tablet Disconti nued 5 MG PO Twice Daily 60 er 2019 2:53pm 2020 4:43pm Insulin Degludec (Tresiba Flextouch U-100) 100 unit/mL (3 mL) insulin pen Disconti nued 25 UNIT SUBCUT daily September 13, 2020 9:44am er 2019 10:06a m continue increasing by 2 units every 3 days until blood sugars are in the 130 range Clopidogrel Bisulfate (Clopidogrel) 75 mg tablet Disconti nued 75 MG PO 3 times per week September 13, 2020 10:02am March 21, 2022 10:35a m Insulin Degludec (Tresiba Flextouch U-100) 100 unit/mL (3 mL) insulin pen Disconti nued 25 UNIT SUBCUT daily 15 2019 10:06am er 2019 1:41pm 38 units daily Insulin Degludec (Tresiba Flextouch U-100) 200 unit/mL (3 mL) insulin pen Disconti nued 38 UNIT SUBCUT daily 9 2019 1:39pm March 21, 2022 10:35a m 38 units daily Linagliptin (Tradjenta) 5 mg tablet Disconti nued 5 MG PO daily 30 2019 9:41am 2020 7:44am Atorvastatin Calcium (Lipitor) 40 mg tablet Disconti nued 40 MG PO Every Night 2019 3:49pm April 30, 2021 9:00am Cholecalcifer ol (Vitamin D3) (Vitamin D3) 25 mcg (1,000 unit) capsule Active 25 MCG PO daily 30 2019 1:00am Omeprazole Disconti nued 20 MG PO Daily 2020 7:17am b er 2020 2:08pm Levothyroxine Sodium Disconti nued 75 MCG PO daily 90 2020 10:16am June 18, 2021 12:04p m Linagliptin (Tradjenta) 5 mg tablet Disconti nued 5 MG PO daily 2020 7:44am February 20, 2021 7:04am Insulin Degludec (Tresiba Flextouch U-200) 200 unit/mL (3 mL) insulin pen Disconti nued 38 UNIT SUBCUT Every Night 2020 10:06am March 20, 2021 8:53am Apixaban (Eliquis) 5 mg tablet Active 5 MG PO Twice Daily 2020 4:42pm Gabapentin Disconti nued 800 MG PO Every Night 2020 9:29am February 28, 2021 11:49a m Metoprolol Tartrate (Lopressor) 25 mg tablet Active 25 MG PO Twice Daily January 22, 2021 9:46am Linagliptin (Tradjenta) 5 mg tablet Disconti nued 5 MG PO daily February 20, 2021 7:04am April 17, 2021 1:18pm Gabapentin Disconti nued 800 MG PO .COMPLEX 60 February 28, 2021 11:48am July 01, 2021 1:17pm 800 mg PO take one tablet at lunchtime and one tablet at bedtime; Insulin Degludec (Tresiba Flextouch U-200) 200 unit/mL (3 mL) insulin pen Disconti nued 38 UNIT SUBCUT Every Night March 20, 2021 8:52am June 07, 2021 10:04a m Linagliptin (Tradjenta) 5 mg tablet Disconti nued 5 MG PO daily April 17, 2021 1:18pm Novemb er 2020 9:59am Atorvastatin Calcium (Lipitor) 40 mg tablet Active 40 MG PO Every Night April 30, 2021 8:59am Lancets Disconti nued 0 .ROUTE .MEDSUPPLY 100 May 23, 2021 7:48am Decemb er 2020 10:44a m As directed twice a day Dx E11.9 Blood Sugar Diagnostic (Precision Q-I-D) strip Disconti nued 0 .ROUTE .MEDSUPPLY 100 May 23, 2021 7:48am May 08, 2023 4:28pm As directed twice a day Dx E11.9 Insulin Degludec (Tresiba Flextouch U-200) 200 unit/mL (3 mL) insulin pen Disconti nued 38 UNIT SUBCUT Every Night 9 June 07, 2021 10:04am [facility] er 2020 7:22am Levothyroxine Sodium Active 75 MCG PO daily 90 June 18, 2021 12:04pm Gabapentin Disconti nued 800 MG PO .COMPLEX 60 July 01, 2021 1:17pm [facility] er 2020 10:54a m 800 mg PO take one tablet at lunchtime and one tablet at bedtime; Insulin Degludec (Tresiba Flextouch U-200) 200 unit/mL (3 mL) insulin pen Disconti nued 38 UNIT SUBCUT Every Night 9 r 2020 7:22am Januar y 2021 11:53a m Semaglutide (Ozempic) 0.25 mg or 0.5 mg(2 mg/1.5 mL) pen injector Disconti nued 0.25 MG SUBCUT Every Week 1.5 0 2020 12:46pm May 02, 2022 7:56am Linagliptin (Tradjenta) 5 mg tablet Disconti nued 5 MG PO daily 2020 9:59am March 21, 2022 10:33a m Lancets Disconti nued 0 .ROUTE .MEDSUPPLY 100 [facility] 2020 10:44am [facility] er 2020 1:43pm As directed twice a day Dx E11.9 Gabapentin Disconti nued 800 MG PO .COMPLEX 180 [facility] 2020 10:49am [facility] er 2020 1:43pm 800 mg PO take one tablet at lunchtime and one tablet at bedtime; Gabapentin Disconti nued 800 MG PO .COMPLEX 180 [facility] r 2020 1:43pm [facility] er 2020 9:46am 800 mg PO take one tablet at lunchtime and one tablet at bedtime; Lancets Disconti nued 0 .ROUTE .MEDSUPPLY 100 [facility] r 2020 1:43pm Decemb er 2021 11:27a m As directed twice a day Dx E11.9 Gabapentin Disconti nued 800 MG PO .COMPLEX 180 Decee r 2020 9:45am March 21, 2022 10:17a m 800 mg PO take one tablet at lunchtime and one tablet at bedtime; Dexamethasone Disconti nued 4 MG PO daily November 25, 2021 1:00am March 21, 2022 10:28a m Insulin Degludec (Tresiba Flextouch U-200) 200 unit/mL (3 mL) insulin pen Disconti nued 38 UNIT SUBCUT Every Night December 11, 2021 11:53am Januar y 2021 1:00pm Insulin Degludec (Tresiba Flextouch U-200) 200 unit/mL (3 mL) insulin pen Disconti nued 0 SUBCUT Every Night December 11, 2021 12:59pm March 21, 2022 10:17a m inject 22 units in the AM and 30 units in the PM subcut every night; Aspirin (Adult Aspirin Regimen) [address] Tablet.Dr Dickens nued 81 MG PO Daily January 29, 2018 12:00am Octobe r 2017 9:01pm Cephalexin (Keflex) 500 MG Capsule Disconti nued 500 MG PO QID January 29, 2018 12:00am March 22, 2018 2:37pm Cholecalcifer ol (Vitamin D3) (Vitamin D3) 1,000 UNIT Capsule Disconti nued 1000 UNIT PO Daily January 29, 2018 12:00am Octobe r 2017 9:01pm Cyanocobalami n (Vitamin B-12) (Vitamin B-12) 1,000 MCG Tablet Disconti nued 500 MCG PO Daily January 29, 2018 12:00am March 22, 2018 2:37pm Duloxetine Hcl Disconti nued 30 MG PO Daily January 29, 2018 12:00am March 22, 2018 2:37pm Gabapentin Disconti nued 300 MG PO Twice Daily January 29, 2018 12:00am March 22, 2018 2:37pm Garlic Disconti nued 1000 MG PO Daily January 29, 2018 12:00am Octobe r 2017 9:00pm Irbesartan/Hy drochlorothia zide (Irbesartan-H ctz 150-12.5 Mg Tb) 1 EACH Tablet Disconti nued 0.5 TAB PO Daily January 29, 2018 12:00am Octobe r 2017 9:00pm JannaAcidoph,Darrin acasei, B.Lactis (Probiotic) 1 EACH Capsule Disconti nued 1 CAP PO Daily January 29, 2018 12:00am March 22, 2018 2:37pm Metformin Hcl Disconti nued 500 MG PO Twice Daily January 29, 2018 12:00am Octobe r 2017 7:06am Multivit Adult 50+ Disconti nued 1 TAB PO Daily January 29, 2018 12:00am March 22, 2018 2:37pm Steele-3/Dha/E pa/Fish Oil (Fish Oil Steele-3 Ec 1,200 Mg) [address] E[address]aps[address] Maonti nued 1 EACH PO Daily January 29, 2018 12:00am Octobe r 2017 8:57pm Omeprazole Disconti nued 20 MG PO Daily January 29, 2018 12:00am Februa ry 2020 7:18am Potassium Gluconate Disconti nued 500 MG PO Daily January 29, 2018 12:00am April 07, 2018 6:40pm Duloxetine Hcl Disconti nued 60 MG PO Daily March 22, 2018 12:00am Octobe r 2017 8:54pm Amiodarone Hcl (Cordarone) 200 MG Tablet Disconti nued 200 MG PO Daily March 26, 2018 12:00am April 07, 2018 6:40pm Amiodarone Hcl (Cordarone) 200 MG Tablet Disconti nued 200 MG PO Twice Daily March 26, 2018 12:00am April 07, 2018 6:40pm take bid for 2 weeks then just take 200mg daily Docusate Sodium (Colace) 100 MG Capsule Disconti nued 100 MG PO Twice Daily March 26, 2018 12:00am April 07, 2018 6:40pm Magnesium Oxide (Mag-Oxide) 200 MG Tablet Disconti nued 400 MG PO Twice Daily March 26, 2018 12:00am April 07, 2018 6:40pm Cefuroxime Axetil (Ceftin) 500 MG Tablet Disconti nued 500 MG PO Twice Daily March 26, 2018 12:00am April 07, 2018 6:40pm Albuterol Sulfate (Ventolin Hfa) 60 PUFFS/8 GM Inhaler Disconti nued 2 PUFFS INHAL Every 4-6 Hours April 07, 2018 12:00am Octobe r 2017 9:02pm Apixaban (Eliquis) 2.5 MG tablet Disconti nued 5 MG PO Twice Daily April 07, 2018 12:00am February 02, 2020 10:05a m Cefadroxil Disconti nued 500 MG PO Daily April 07, 2018 12:00am Octobe r 2017 9:01pm Cyanocobalami n (Vitamin B-12) (Vitamin B12) 2,500 MCG Tablet Disconti nued 2500 MCG PO Daily April 07, 2018 12:00am Octobe r 2017 9:01pm Losartan Potassium Disconti nued 25 MG PO Daily April 07, 2018 12:00am Octobe r 2017 8:58pm Meclizine Hcl Disconti nued 25 MG PO Twice Daily April 07, 2018 12:00am Octobe r 2017 8:57pm Metoprolol Tartrate Disconti nued 25 MG PO Twice Daily April 07, 2018 12:00am January 24, 2020 10:49a m Multivitamin (Multivitamin s) 1 EACH Capsule Disconti nued 1 TAB PO Daily April 07, 2018 12:00am Octobe r 2017 8:57pm Potassium Gluconate Disconti nued 550 MG PO Daily April 07, 2018 12:00am Octobe r 2017 8:55pm Tramadol Hcl Disconti nued 50 MG PO Q6H April 07, 2018 12:00am Octobe r 2017 8:55pm Duloxetine Hcl Disconti nued 30 MG PO Daily August 23, 2018 12:00am January 26, 2019 10:46a m Amiodarone Hcl Disconti nued 100 MG PO Daily August 23, 2018 12:00am January 26, 2019 10:45a m Atorvastatin Calcium Disconti nued 40 MG PO Daily August 23, 2018 12:00am May 07, 2020 9:59am Clopidogrel Bisulfate (Clopidogrel) 75 MG tablet Disconti nued 75 MG PO As Directed August 23, 2018 12:00am May 01, 2020 10:04a m Metformin Hcl Disconti nued 500 MG PO Daily August 23, 2018 12:00am y 2018 5:07am Metformin Hcl Disconti nued 500 MG PO Bedtime August 24, 2018 12:00am y 2018 5:07am Benzonatate (Tessalon Perles) 100 MG Capsule Disconti nued 100 MG PO TID February 13, 2019 12:00am May 03, 2019 10:52a m Ondansetron (Zofran Odt) 4 MG tablet,disint egrating Disconti nued 4 MG PO Q6H May 03, 2019 12:00am May 01, 2020 10:56a m Potassium Disconti nued 99 MG PO Daily August 16, 2020 12:00am May 08, 2023 4:25pm Gabapentin Active 800 MG PO TID March 21, 2022 10:16am 800 mg PO take one tablet at lunchtime and one tablet at bedtime; Insulin Degludec (Tresiba Flextouch U-200) 200 UNIT/ML insulin pen Disconti nued 32 UNIT SUBCUT With Evening Meal March 21, 2022 12:00am June 05, 2022 12:12p m Cyanocobalami n (Vitamin B-12) (Vitamin B-12) 2,500 MCG tablet, sublingual Active 2500 MCG SUBLING UAL Daily March 21, 2022 12:00am Clopidogrel Bisulfate (Clopidogrel) 75 MG tablet Active 75 MG PO Daily March 21, 2022 10:34am Insulin Degludec (Tresiba Flextouch U-200) 200 UNIT/ML insulin pen Disconti nued 24 UNIT SUBCUT Daily March 21, 2022 10:34am June 05, 2022 12:12p m 38 units daily Clindamycin Hcl Disconti nued 300 MG PO QID March 25, 2022 12:00am April 27, 2022 6:51pm Meclizine Hcl Active 25 MG PO TID Apr 12:00am Cefuroxime Axetil (Ceftin) 500 MG tablet Disconti nued 500 MG PO Twice Daily May 02, 2022 12:00am June 05, 2022 12:12p m Vancomycin Hcl Disconti nued 125 MG PO QID May 02, 2022 12:00am June 05, 2022 12:13p m Steele-3 Fatty Acids (Steele-3) 1,000 MG capsule Disconti nued 1000 MG PO Twice Daily May 03, 2022 12:00am May 08, 2023 4:25pm Pt takes one in the morning and one at supper time Insulin Degludec (Tresiba Flextouch U-200) 200 UNIT/ML insulin pen Active 24 UNITS SUBCUT Every Morning June 25, 2022 12:00am Linagliptin (Tradjenta) 5 MG tablet Active 5 MG PO Daily June 25, 2022 12:00am Semaglutide (Ozempic) 0.25 MG/0.2 ML pen injector Active 0.25 MG SUBCUT Every Week June 05, 2022 12:00am Weekly-Every Thursday Tramadol Hcl Disconti nued 50 MG PO Twice Daily [facility]2021 1:00am May 08, 2023 4:29pm Lidocaine (Lidoderm Patch) 700 MG adhesive patch,medicat ed Disconti nued 700 MG TOPIC Daily 2021 1:00am May 08, 2023 4:28pm Prednisone Disconti nued 40 MG PO Daily 4 2021 1:00am April 16, 2023 12:07p m Lidocaine (Lidoderm Patch) 700 MG adhesive patch,medicat ed Disconti nued 1 PATCH TOPIC Daily 2021 1:00am April 16, 2023 12:06p m may wear up to 12 hours Prednisone Disconti nued 40 MG PO Daily 5 2021 1:00am April 16, 2023 12:07p m Insulin Degludec Pen (U-200) Disconti nued 34 UNITS SUBCUT Bedtime April 12, 2023 12:00am May 08, 2023 4:27pm Acetaminophen (Tylenol) 325 MG tablet Active 650 MG PO Q6H April 16, 2023 12:00am Docusate Sodium (Colace) 100 MG capsule Active 100 MG PO Twice Daily 60 April 16, 2023 12:00am Cephalexin Disconti nued 1000 MG PO QID 112 April 16, 2023 12:00am May 08, 2023 4:28pm Calcium Carbonate (Calcium) 600 MG tablet Active 600 MG PO Daily May 08, 2023 12:00am Nitroglycerin Active 0.4 MG SUBLING UAL As Directed May 08, 2023 12:00am Krill/Steele-3 /Dha/Epa/Lipi ds (Steele-3 Krill Oil 500 Mg Sfgl) 1 EACH capsule Active 2 ea PO Daily May 08, 2023 12:00am Potassium Gluconate (Potassium) 99 MG tablet Active 99 MG PO Daily May 08, 2023 12:00am Pantoprazole Sodium (Protonix) 40 MG tablet,delaye d release (DR/EC) Active 40 MG PO Daily May 08, 2023 4:25pm Insulin Degludec (Tresiba) 100 UNIT/ML solution Active 32 UNIT SUBCUT Every Night May 08, 2023 12:00am Cephalexin Disconti nued 500 MG PO TID March 01, 2020 12:00am April 25, 2020 11:37a m Diphenhydrami ne Hcl Disconti nued 25 MG PO Every Night March 01, 2020 12:00am May 01, 2020 10:57a m Lactobacillus Combination No.4 (Probiotic) 3 billion cell capsule Active 3000 MMU CELLS PO daily November 30, 2020 1:00am administer with a meal Nitroglycerin Disconti nued 0.4 MG SUBLING UAL Q5M November 30, 2020 1:00am May 08, 2023 4:23pm do not exceed 3 doses per episode Levofloxacin Disconti nued 500 MG PO Q24H 10 Sept er 2019 12:00am Octobe r 2019 10:01a m Tramadol Hcl Disconti nued 50 MG PO Q8H 60 er 2019 12:00am Octobe r 2019 12:02a m Doxycycline Hyclate Disconti nued 100 MG PO Twice Daily June 04, 2021 4:01pm [facility] 7:05am Azithromycin Disconti nued 0 PO .COMPLEX 6 November 18, 2021 1:00am March 21, 2022 10:20a m take 500 mg today (day 1), then 250 mg for 4 days (days 2-5) PO Doxycycline Hyclate Disconti nued 100 MG PO Twice Daily April 25, 2020 12:00am May 01, 2020 10:57a m Glimepiride Disconti nued 4 MG PO Every Morning April 25, 2020 12:00am May 17, 2020 10:43a m administer with breakfast Prednisolone Acetate (Pred Forte 1% Opth Soln) 1 % drops,suspens ion Disconti nued ophthal courtney (eye) May 10, 2020 12:00am Octobe r 2019 9:59am Metformin Hcl (Glucophage Xr) 500 mg tablet extended release 24 hr Disconti nued 500 MG PO Twice Daily 60 June 26, 2020 12:00am Octobe r 2019 10:00a m Linagliptin (Tradjenta) 5 mg tablet Disconti nued MG PO September 06, 2020 12:00am [facility] er 2019 9:43am Insulin Degludec (Tresiba Flextouch U-100) 100 unit/mL (3 mL) insulin pen Disconti nued 10 UNIT SUBCUT daily August 17, 2020 12:00am Octobe r 2019 2:57pm start at 10 units daily then increase by 2 units every 3 days until fasting blood sugars are in the 130 range Insulin Degludec (Tresiba Flextouch U-100) 100 unit/mL (3 mL) insulin pen Disconti nued 25 UNIT SUBCUT daily September 11, 2020 2:54pm Octobe r 2019 3:15pm continue increasing by 2 units every 3 days until blood sugars are in the 130 range Insulin Degludec (Tresiba Flextouch U-100) 100 unit/mL (3 mL) insulin pen Disconti nued 25 UNIT SUBCUT daily September 11, 2020 3:14pm Octobe r 2019 9:44am continue increasing by 2 units every 3 days until blood sugars are in the 130 range Semaglutide (Ozempic) 0.25 mg or 0.5 mg(2 mg/1.5 mL) pen injector Disconti nued 0.25 MG SUBCUT Every Week 1.5 0 September 11, 2020 12:00am Novemb er 2020 12:46p m Gabapentin Disconti nued 800 MG PO Every Night September 11, 2020 12:00am 2020 9:30am Insulin Degludec (Tresiba Flextouch U-200) 200 unit/mL (3 mL) insulin pen Disconti nued 38 UNIT SUBCUT Every Night 9 2019 1:00am 2020 10:07a m Hydrocodone/A cetaminophen ([place] 5-325 Tablet) 5-325 mg tablet Disconti nued 1 TAB PO Twice Daily 60 2019 1:02am Docusate Sodium Disconti nued 100 MG PO Twice Daily 60 November 19, 2020 1:00am February 28, 2021 11:13a m Hydrocodone/A cetaminophen ([place] 5-325 Tablet) 5-325 mg tablet Disconti nued 1 TAB PO Twice Daily 60 November 19, 20202020 1:02am Varicella-Zos ter Ge Vac,2 Of 2 (Shingrix Ge Antigen Component) 50 mcg suspension for reconstitutio n Disconti nued 50 MCG IM .COMPLEX 1 November 19, 2020 1:00am 2020 11:33a m 50 mcg IM admin now and then again in 2-6 months; Varicella-Zos ter Ge Vac,2 Of 2 (Shingrix Ge Antigen Component) 50 mcg suspension for reconstitutio n Disconti nued 50 MCG IM .COMPLEX 1 November 19, 2020 11:33am Novemb er 2020 2:09pm 50 mcg IM admin now and then again in 2-6 months; Cephalexin Disconti nued 750 MG PO Q12H 2020 1:00am February 21, 2021 1:37pm Pantoprazole Sodium (Protonix) 40 mg tablet,delaye d release (DR/EC) Disconti nued 40 MG PO daily 30 r 2020 1:00am May 08, 2023 4:25pm Steele-3 Fatty Acids (Fish Oil Concentrate) 1,000 mg capsule Disconti nued 1000 MG PO Twice Daily 60 Novembe r 2020 1:00am May 03, 2022 11:24a m Immunizations Immunization Event Date Not Given Reason Dose Number Twisting Frame Changer Lot Number Vaccine Information Statement (VIS) Detail SARS-COV-2 (COVID-19) MODERNA 207 July 07, 2021 [id number] Fluzone QUAD August 16, 2017 Fluzone QUAD August 17, 2018 Influenza, high-dose, Quadrivalent October 18, 2020 [id number] Influenza, high-dose, Quadrivalent October 04, 2021 [id number] Pneumococcal 13-Valent Conjugate Vaccine September 08, 2018 Pneumococcal 23-Valent Polysaccharide Vaccine October 03, 2013 Relevant Diagnostic Tests and/or Laboratory Data Laboratory Results Test Date/Time Result Interpretation Reference Range Result Comment Performing Site White Blood Count July 28, 2023 12:14pm 7.4 10^3/uL 4.1-10.2 [facility] [address] [id number] [address] [facility] [place] [id number] Red Blood Count July 28, 2023 12:14pm 5.15 10^6/uL 3.80-5.20 [facility] [address] [id number] [address] [facility] [place] [id number] Hemoglobin July 28, 2023 12:14pm 14.2 g/dL 11.5-15.5 [facility] [address] [id number] 214 [facility] [place] [id number] Hematocrit July 28, 2023 12:14pm 44.4 % 35-46 [facility] [address] [id number] [address] [facility] [place] [id number] Mean Corpuscular Volume July 28, 2023 12:14pm 86.2 fL 82.0-98.0 [facility] [address] [id number] [address] [facility] [place] [address] Mean Corpuscular Hemoglobin July 28, 2023 12:14pm 27.6 pg 27.0-34.0 [facility] [address] [id number] 214 [facility] [place] [address] Mean Corpuscular Hemoglobin Concent July 28, 2023 12:14pm 32.0 g/dL 31.0-36.0 [facility] [address] [id number] [address] [place] [address] RDW Standard Deviation July 28, 2023 12:14pm 44.6 fL 37-49 [facility] [address] [id number] [address] [facility] [place] [address] RDW Coefficient of Variation July 28, 2023 12:14pm 14.1 % 11.8-14.8 [facility] [address] [id number] [address] [place] [address] Platelet Count July 28, 2023 12:14pm 246 10^3/uL 150-360 [facility] [address] [id number] 214 [facility] [place] [address] Mean Platelet Volume July 28, 2023 12:14pm 10.5 fL 9.4-12.3 [facility] [address] [id number] 214 [facility] [place] [address] Neutrophils (%) (Auto) July 28, 2023 12:14pm 61.1 % 42-75 [facility] [address] [id number] 214 [facility] [place] [address] Lymphocytes (%) (Auto) July 28, 2023 12:14pm 28.0 % 14-42 [facility] [address] [id number] 214 [facility] [place] [address] Monocytes (%) (Auto) July 28, 2023 12:14pm 7.3 % 4-13 [facility] [address] [id number] 214 [facility] [place] [address] Eosinophils (%) (Auto) July 28, 2023 12:14pm 2.4 % 0-6 [facility] [address] [id number] [address] [place] [address] Basophils (%) (Auto) July 28, 2023 12:14pm 0.8 % 0-2 [facility] [address] [id number] [address] [facility] [place] [address] Immature Granulocytes % July 28, 2023 12:14pm 0.4 % 0.0-0.7 [facility] [address] [id number] [address] [place] [address] Neutrophils # (Auto) July 28, 2023 12:14pm 4.5 10^3uL 1.8-6.6 [facility] [address] [id number] [address] [place] [address] Lymphocytes # (Auto) July 28, 2023 12:14pm 2.1 10^3/uL 1.0-3.1 [facility] [address] [id number] [address] [place] [address] Monocytes # (Auto) July 28, 2023 12:14pm 0.5 10^3uL 0.0-1.0 [facility] [address] [id number] [address] [place] [address] Eosinophils # (Auto) July 28, 2023 12:14pm 0.2 10^3uL 0.0-0.5 [facility] [address] [id number] [address] [facility] [place] [address] Basophils # (Auto) July 28, 2023 12:14pm 0.1 10^3/uL 0.0-0.1 [facility] [address] [id number] [address] [place] [address] Sodium Level July 28, 2023 12:14pm 142 mmol/L 136-145 [facility] [address] [id number] [address] [place] [address] Potassium Level July 28, 2023 12:14pm 4.3 mmol/L 3.5-5.1 [facility] [address] [id number] [address] [place] [address] Chloride Level July 28, 2023 12:14pm 108 mmol/L 98-107 [facility] [address] [id number] [address] [place] [address] Carbon Dioxide Level July 28, 2023 12:14pm 31 mmol/L 21-32 [facility] [address] [id number] [address] [place] [address] Anion Gap July 28, 2023 12:14pm 3.0 MMOL/L 1.0-15.0 [facility] [address] [id number] [address] [place] [address] Blood Urea Nitrogen July 28, 2023 12:14pm 18 mg/dL 7-18 [facility] [address] [id number] 214 [facility] [place] [address] Creatinine July 28, 2023 12:14pm 1.26 mg/dL 0.55-1.02 [facility] [address] [id number] 214 [facility] [place] [address] Estimated GFR (MDRD) July 28, 2023 12:14pm 41 UNITS= mL/min/1.73m squared Unable to flag low results Results less than 60 may warrant further investigationPati ents race is not known. If the patient is , multiply the calculated GFR result provided by 1.21. GFR Estimate should not be used to alter drug dosages. [facility] [address] [id number] 214 [facility] [place] [address] BUN/Creatinine Ratio July 28, 2023 12:14pm 14.3 10.0-20.00 [facility] [address] [id number] 214 [facility] [place] [address] Glucose Level July 28, 2023 12:14pm 150 mg/dL 70-99 [facility] [address] [id number] 214 [facility] [place] [address] Calculated Osmolality July 28, 2023 12:14pm 287 275-295 [facility] [address] [id number] 214 [facility] [place] [address] Calcium Level July 28, 2023 12:14pm 9.5 mg/dL 8.5-10.1 [facility] [address] [id number] 214 [facility] [place] [address] Aspartate Amino Transf (AST/SGOT) July 28, 2023 12:14pm 55 U/L 15-37 [facility] [address] [id number] 214 [facility] [place] [address] Alanine Aminotransferas e (ALT/SGPT) July 28, 2023 12:14pm 63 U/L 13-56 [facility] [address] [id number] 214 [facility] [place] [address] Alkaline Phosphatase July 28, 2023 12:14pm 150 U/L 45-117 [facility] [address] [id number] 214 [facility] [place] [address] Total Bilirubin July 28, 2023 12:14pm 0.54 mg/dL 0.20-1.00 [facility] [address] [id number] 214 [facility] [place] [address] Total Protein July 28, 2023 12:14pm 7.6 g/dL 6.40-8.20 [facility] [address] [id number] 214 [facility] [place] [address] Albumin July 28, 2023 12:14pm 3.5 g/dL 3.4-5.0 [facility] [address] [id number] 214 [facility] [place] [address] Globulin July 28, 2023 12:14pm 4.1 Ratio 1.3-4.9 [facility] [address] [id number] 214 [facility] [place] [address] Albumin/Globuli n Ratio July 28, 2023 12:14pm 0.9 Ratio 1.2-2.3 [facility] [address] [id number] 214 [facility] [place] [address] Hemoglobin A1c July 28, 2023 12:14pm 7.0 % 3.8-5.6 [place] [id number] 214 [facility] [place] [address] Estimated Average Glucose July 28, 2023 12:14pm 154 mg/dL 70-126 The estimated average glucose (eAG) is an approximation of the average glucose concentration in mg/dL over the last 90 days.The 2010 "Standards of Medical Care in Diabetes" of the [place] [employer] includes the following interpretations of Hemoglobin A1c results: >=6.5% Diagnostic of Diabetes 5.7-6.4% IFG/IGT ("Pre-Diabetes") [facility] [address] [id number] 214 [facility] [place] [address] Advance Directives Advance Directive Response Recorded Date/ Time Do you have Advance Directives? No August 10, 2020 9:44am Does The Patient Have A Living Will No May 10, 2023 9:04am Insurance Providers Guarantor Grazyna Dale Address [address] [place] [address] [place] [address] Contact Info. Home Phone: Payer Policy Id Coverage Id Subscriber's Name Subscriber Id Effective Date Expiration Date Aettrixie Medicare MCREP [id number] Grazyna Dale [id number] Johan Hardin [facility] [id number] Grazyna Dale [id number] Self Pay Self N/A Encounters Encounter Location(s) Arrival/Admit Date Discharge/Depart Date Provider(s) Departed Referred [facility] July 28, 2023 12:08pm July 28, 2023 12:09pm Moise Reed , DO
--- OUTSIDE RECORDS SUMMARY | 2023-10-17 00:44 | External Medical Summary | Continuity of Care Document ---
Author Name Unknown Address [address] [place] [address] Phone Organization [facility] Address [address] [place] [address] Phone Support Name Relationship Address Phone Kandi Swanson Daughter [address] [place] [address] Moise Reed Primary Care Provider [address] [place] [address] Chief Complaint and Reason for Visit Chief [...] PO Every Night May 07, 2020 9:59am [facility] 2019 3:49pm Glimepiride Disconti nued 4 MG PO Every Morning May 17, 2020 10:43am Octobe r 2019 11:39a m administer with breakfast Lancets Disconti nued 0 .ROUTE .MEDSUPPLY [facility] 12:00am May 23, 2021 7:48am As directed twice a day Dx E11.9 Blood Sugar Diagnostic (Onetouch Ultra Blue Test Strip) strip Disconti nued 0 .ROUTE .MEDSUPPLY [facility] 2019 12:00May 23, 2021 7:48am [...] Every Night 9 June 07, 2021 10:04am [facility] er 2020 7:22am Levothyroxine Sodium Active 75 MCG PO daily 90 June 18, 2021 12:04pm Gabapentin Disconti nued 800 MG PO .COMPLEX 60 July 01, 2021 1:17pm [facility] er 2020 10:54a m 800 mg PO [...] Lancets Disconti nued 0 .ROUTE .MEDSUPPLY 100 [facility] 2020 10:44am [facility] 2020 1:43pm As directed twice a day Dx E11.9 Gabapentin Disconti nued 800 MG PO .COMPLEX 180 [facility] 2020 10:49am [facility] er 2020 1:43pm 800 mg PO take one tablet at lunchtime and one tablet at bedtime; Gabapentin Disconti nued 800 MG PO .COMPLEX 180 [facility] r 2020 1:43pm [facility] er 2020 9:46am 800 mg PO take one tablet at lunchtime and one tablet at bedtime; Lancets Disconti nued 0 .ROUTE .MEDSUPPLY [facility] 1:[facility] 2021 11:27a [...] 29, 2018 12:00am March 22, 2018 2:37pm Bristow-3/Dha/E pa/Fish Oil (Fish Oil Bristow-3 Ec 1,200 Mg) 1 EACH Capsule.Dr Maonti [...] 2022 12:00am June 05, 2022 12:13p m Bristow-3 Fatty Acids (Bristow-3) 1,000 MG capsule Disconti nued 1000 MG [...] Disconti nued 50 MG PO Twice Daily [facility]2021 1:00am May 08, 2023 4:29pm Lidocaine (Lidoderm [...] UAL As Directed May 08, 2023 12:00am Krill/Bristow-3 /Dha/Epa/Lipi ds (Bristow-3 Krill Oil 500 Mg Sfgl) 1 EACH [...] PO Twice Daily June 04, 2021 4:[facility]pm [facility] 7:05[facility] Azithromycin Disconti nued 0 [...] nued MG PO September 06, 2020 12:00am [facility] 2019 9:43am Insulin Degludec (Tresiba Flextouch [...] 2019 1:00am 2020 10:07a m Hydrocodone/A cetaminophen (Pony 5-325 Tablet) 5-325 mg tablet Disconti nued 1 TAB PO Twice Daily 60 2019 1:02am Docusate Sodium Disconti nued 100 MG PO Twice Daily 60 November 19, 2020 1:00am February 28, 2021 11:13a m Hydrocodone/A cetaminophen (Pony 5-325 Tablet) 5-325 mg tablet Disconti nued [...] r 2020 1:00am May 08, 2023 4:25pm Bristow-3 Fatty Acids (Fish Oil Concentrate) 1,000 mg capsule Disconti nued 1000 MG PO Twice Daily 60 Novembe r 2020 1:00am May 03, 2022 11:24a m Immunizations Immunization Event Date Not Given Reason Dose Number 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 Lot Number Vaccine Information Statement (VIS) Detail SARS-COV-2 (COVID-19) MODERNA 207 July 07, 2021 [id number] Fluzone QUAD August 16, 2017 Fluzone QUAD August 17, 2018 Influenza, high-dose, Quadrivalent October 18, 2020 [id number] Influenza, high-dose, Quadrivalent October 04, 2021 [id number] Pneumococcal 13-Valent Conjugate Vaccine September 08, 2018 Pneumococcal 23-Valent Polysaccharide Vaccine October 03, 2013 Relevant Diagnostic Tests and/or Laboratory Data Laboratory Results Test Date/Time Result Interpretation Reference Range Result Comment Performing Site White Blood Count July 28, 2023 12:14pm 7.4 10^3/uL 4.1-10.2 [facility] [id number] 214 [facility] [place] [address] Red Blood Count July 28, 2023 12:14pm 5.15 10^6/uL 3.80-5.20 [facility] [id number] 214 [facility] [place] [address] Hemoglobin July 28, 2023 12:14pm 14.2 g/dL 11.5-15.5 [facility] [id number] 214 [facility] [place] [address] Hematocrit July 28, 2023 12:14pm 44.4 % 35-46 [facility] [id number] 214 [facility] [place] [address] Mean Corpuscular Volume July 28, 2023 12:14pm 86.2 fL 82.0-98.0 [facility] [id number] 214 [facility] [place] [address] Mean Corpuscular Hemoglobin July 28, 2023 12:14pm 27.6 pg 27.0-34.0 [facility] [id number] 214 [facility] [place] [address] Mean Corpuscular Hemoglobin Concent July 28, 2023 12:14pm 32.0 g/dL 31.0-36.0 [facility] [id number] [address] [place] [place] [address] RDW Standard Deviation July 28, 2023 12:14pm 44.6 fL 37-49 [facility] [id number] [address] [facility] [place] [address] RDW Coefficient of Variation July 28, 2023 12:14pm 14.1 % 11.8-14.8 [facility] [id number] [address] [place] [address] Platelet Count July 28, 2023 12:14pm 246 10^3/uL 150-360 [facility] [id number] 214 [facility] [place] [address] Mean Platelet Volume July 28, 2023 12:14pm 10.5 fL 9.4-12.3 [facility] [id number] 214 [facility] [place] [address] Neutrophils (%) (Auto) July 28, 2023 12:14pm 61.1 % 42-75 [facility] [id number] 214 [facility] [place] [address] Lymphocytes (%) (Auto) July 28, 2023 12:14pm 28.0 % 14-42 [facility] [id number] 214 [facility] [place] [address] Monocytes (%) (Auto) July 28, 2023 12:14pm 7.3 % 4-13 [facility] [id number] 214 [facility] [place] [address] Eosinophils (%) (Auto) July 28, 2023 12:14pm 2.4 % 0-6 [facility] [id number] [address] [place] [address] Basophils (%) (Auto) July 28, 2023 12:14pm 0.8 % 0-2 [facility] [id number] [address] [facility] [place] [address] Immature Granulocytes % July 28, 2023 12:14pm 0.4 % 0.0-0.7 [facility] [id number] [address] [place] [address] Neutrophils # (Auto) July 28, 2023 12:14pm 4.5 10^3uL 1.8-6.6 [facility] [id number] [address] [place] [place] [address] Lymphocytes # (Auto) July 28, 2023 12:14pm 2.1 10^3/uL 1.0-3.1 [facility] [id number] [address] [place] [address] Monocytes # (Auto) July 28, 2023 12:14pm 0.5 10^3uL 0.0-1.0 [facility] [id number] [address] [place] [address] Eosinophils # (Auto) July 28, 2023 12:14pm 0.2 10^3uL 0.0-0.5 [facility] [id number] [address] [facility] [place] [address] Basophils # (Auto) July 28, 2023 12:14pm 0.1 10^3/uL 0.0-0.1 [facility] [id number] [address] [place] [address] Sodium Level July 28, 2023 12:14pm 142 mmol/L 136-145 [facility] [id number] [address] [place] [place] [address] Potassium Level July 28, 2023 12:14pm 4.3 mmol/L 3.5-5.1 [facility] [id number] [address] [place] [place] [address] Chloride Level July 28, 2023 12:14pm 108 mmol/L 98-107 [facility] [id number] [address] [place] [address] Carbon Dioxide Level July 28, 2023 12:14pm 31 mmol/L 21-32 [facility] [id number] [address] [place] [address] Anion Gap July 28, 2023 12:14pm 3.0 MMOL/L 1.0-15.0 [facility] [id number] [address] [place] [address] Blood Urea Nitrogen July 28, 2023 12:14pm 18 mg/dL 7-18 [facility] [id number] 214 [facility] [place] [address] Creatinine July 28, 2023 12:14pm 1.26 mg/dL 0.55-1.02 [facility] [id number] [address] [facility] [place] [address] Estimated GFR (MDRD) July 28, 2023 12:14pm 41 UNITS= mL/min/1.73m squared Unable to flag low results Results less than 60 may warrant further investigationPati ents race is not known. If the patient is , multiply the calculated GFR result provided by 1.21. GFR Estimate should not be used to alter drug dosages. [facility] [id number] 214 [facility] [place] [address] BUN/Creatinine Ratio July 28, 2023 12:14pm 14.3 10.0-20.00 [facility] [id number] [address] [facility] [place] [address] Glucose Level July 28, 2023 12:14pm 150 mg/dL 70-99 [facility] [id number] [address] [facility] [place] [address] Calculated Osmolality July 28, 2023 12:14pm 287 275-295 [facility] [id number] [address] [facility] [place] [address] Calcium Level July 28, 2023 12:14pm 9.5 mg/dL 8.5-10.1 [facility] [id number] [address] [facility] [place] [address] Aspartate Amino Transf (AST/SGOT) July 28, 2023 12:14pm 55 U/L 15-37 [facility] [id number] [address] [facility] [place] [address] Alanine Aminotransferas e (ALT/SGPT) July 28, 2023 12:14pm 63 U/L 13-56 [facility] [id number] [address] [facility] [place] [address] Alkaline Phosphatase July 28, 2023 12:14pm 150 U/L 45-117 [facility] [id number] 214 [facility] [place] [address] Total Bilirubin July 28, 2023 12:14pm 0.54 mg/dL 0.20-1.00 [facility] [id number] 214 [facility] [place] [address] Total Protein July 28, 2023 12:14pm 7.6 g/dL 6.40-8.20 [facility] [id number] 214 [facility] [place] [address] Albumin July 28, 2023 12:14pm 3.5 g/dL 3.4-5.0 [facility] [id number] [address] [facility] [place] [address] Globulin July 28, 2023 12:14pm 4.1 Ratio 1.3-4.9 [facility] [id number] 214 [facility] [place] [address] Albumin/Globuli n Ratio July 28, 2023 12:14pm 0.9 Ratio 1.2-2.3 [facility] [id number] 214 [facility] [place] [address] Hemoglobin A1c July 28, 2023 12:14pm 7.0 % 3.8-5.6 [place] [id number] 214 [facility] [place] [address] Estimated Average Glucose July 28, 2023 12:14pm 154 mg/dL 70-126 The estimated average glucose (eAG) is an approximation of the average glucose concentration in mg/dL over the last 90 days.The 2010 "Standards of Medical Care in Diabetes" of the [place] [employer] includes the following interpretations of Hemoglobin A1c results: >=6.5% Diagnostic of Diabetes 5.7-6.4% IFG/IGT ("Pre-Diabetes") [facility] [id number] [address] [facility] [place] [address] Advance Directives Advance Directive Response Recorded Date/ Time Do you have Advance Directives? No August 10, 2020 9:44am Does The Patient Have A Living Will No May 10, 2023 9:04am Insurance Providers Guarantor Grazyna Dale Address [address] [place] [address] [place] [address] Contact Info. Home Phone: Payer Policy Id Coverage Id Subscriber's Name Subscriber Id Effective Date Expiration Date Aettrixie Medicare MCREP [id number] Grazyna Dale [id number] Johan Hardin [facility] [id number] Grazyna Dale [id number] Self Pay Self N/A Encounters Encounter Location(s) Arrival/Admit Date Discharge/Depart Date Provider(s) Departed Referred [facility] July 28, 2023 12:08pm July 28, 2023 12:09pm Moise Reed , DO
--- OUTSIDE RECORDS SUMMARY | 2023-10-17 00:45 | External Medical Summary ---
Author Name Unknown Address Unknown Organization [facility] [address] [place] [address] Laboratory Report Ordering Provider Test Date Status Derek Phipps 07/28/2023 12:14 Final Observation Date Value Abnormality Reference (Units ) Status White Blood Count 07/28/2023 12:50 7.4 Normal 4.1-1 0.2 (10 3/uL) Final RBC 07/28/2023 12:50 5.15 Normal 3.80-5.20 (10 6/uL) Final Hemoglobin 07/28/2023 12:50 14.2 Normal 11.5-15.5 (g /dL) Final HCT 07/28/2023 12:50 44.4 Normal 35-46 (%) Fin al MCV 07/28/2023 12:50 86.2 Normal 82.0-98.0 (fL ) Final MCH 07/28/2023 12:50 27.6 Normal 27.0-34.0 (pg ) Final MCHC 07/28/2023 12:50 32.0 Normal 31.0-36.0 (g/ dL) Final Erythrocyte distribution width [Entitic volume] 07/28/2023 12:50 44.6 Normal 37-49 (fL) F inal RDW 07/28/2023 12:50 14.1 Normal 11.8-14.8 (%) Final Platelets 07/28/2023 12:50 246 Normal 150-360 (10 3 /uL) Final Mean Platelet Volume 07/28/2023 12:50 10.5 Normal 9. 4-12.3 (fL) Final Segs 07/28/2023 12:50 61.1 Normal 42-75 (%) Fin al Lymphs, absolute 07/28/2023 12:50 28.0 Normal 14-42 (%) Final Monos 07/28/2023 12:50 7.3 Normal 4-13 (%) Fin al Eosinophils 07/28/2023 12:50 2.4 Normal 0-6 (%) F inal Basos 07/28/2023 12:50 0.8 Normal 0-2 (%) Fin al Immature Granulocyte, Percent 07/28/2023 12:50 0.4 Normal 0.0-0.7 (%) Final NRBC% (Auto) 07/28/2023 12:50 0.0 Normal 0.0-0.2 (/ 100 WBC) Final Absolute Segs 07/28/2023 12:50 4.5 Normal 1.8-6.6 ( 10 3uL) Final Lymphocytes [#/volume] in Specimen by Automated count 07/28/2023 12:50 2.1 Normal 1.0-3.1 (10 3/uL) Final Monos, Abs 07/28/2023 12:50 0.5 Normal 0.0-1.0 (10 3uL) Final Eos, Abs 07/28/2023 12:50 0.2 Normal 0.0-0.5 (10 3 uL) Final Basos, Abs 07/28/2023 12:50 0.1 Normal 0.0-0.1 (10 3/uL) Final Granulocytes [#/volume] in Blood by Automated count 07/28/2023 12:50 0.0 Normal 0.0-0.0 (10 3/uL) Final NRBC # (Auto) 07/28/2023 12:50 0.000 Normal 0.000 -0.012 (10 3/uL) Final Performing Location [address] [address]
--- OUTSIDE RECORDS SUMMARY | 2023-10-17 00:45 | External Medical Summary | Continuity of Care Document ---
Author Name Unknown Address [address] [place] [address] Phone Organization [facility] Address [address] [facility] [place] [address] Phone Support Name Relationship Address Phone Kandi Swanson Daughter [address] [place] [address] Moise Reed Primary Care Provider [address] [place] [address] Tae Aldana Emergency Provider [address] [facility] [place] [address] Enrique Sousa Admit Provider [address] [facility] [place] [address] Riki Santos Attending Provider [address] [facility] [place] [address] Chief Complaint and Reason for Visit Chief Complaint L foot cellulitis, d iabetic ulcer Laboratory Specimen Drop Off Reason for Visit Bacteremia Cellulitis of left foot Fever Atrial fibrillation CHF (congestive heart failure) CKD (chronic kidney disease) Diabetic foot ulcer Hypertension Hypothyroidism Allergies, Adverse Reactions, Alerts Allergen Type Severity Reaction Last Updated Verified Status meloxicam Allergy Unknown Confusion,Confu micaela,Co nfusion,unknown,unknow n,Confusion,Conf May 18, 2023 4:32pm No Active metformin Allergy Unknown Diarrhea May 10 8:56am Yes Active Social History Smoking Status Status Start Date End Date Date of Observa tion Never smoked tobacco (finding) May 10, 2023 9:04am Observation Status Observation Response Date of Response Current Tobacco Use None May 08, 2 023 3:37pm Marital Status May 10, 2023 9:04am Occupation [...] Gabapentin Disconti nued 0 PO .COMPLEX 210 January 24, 2020 12:00am May 01, 2020 11:00a m 300mg capsules, 2 [...] Twice Daily May 01, 2020 12:00am Septem shola 2019 2:54pm Clopidogrel Bisulfate (Clopidogrel) 75 mg tablet Disconti nued 75 MG PO 3 times per week May 01, 2020 10:00am Octobe r 2019 10:03a m Linagliptin (Tradjenta) 5 mg tablet Disconti nued 5 MG PO daily May 01, 2020 12:00am Octobe r 2019 10:00a m Atorvastatin Calcium (Lipitor) 40 mg tablet Disconti nued 40 MG PO Every Night May 07, 2020 9:59am [facility] er 2019 3:49pm Glimepiride Disconti nued 4 MG PO Every Morning May 17, 2020 10:43am [facility] r 2019 11:39a m administer with breakfast Lancets Disconti nued 0 .ROUTE .MEDSUPPLY 100 [facility] 2019 12:00am May 23, 2021 7:48am As directed twice a day Dx E11.9 Blood Sugar Diagnostic (Onetouch Ultra Blue Test Strip) strip Disconti nued 0 .ROUTE .MEDSUPPLY 100 [facility] 2019 12:00am May 23, 2021 7:48am As directed twice a day Dx E11.9 Metoprolol Tartrate (Lopressor) 25 mg tablet Disconti nued 25 MG PO Twice Daily 60 [facility] 2019 11:58am January 22, 2021 9:46am Apixaban (Eliquis) 5 mg tablet Disconti nued 5 MG PO Twice Daily 60 [facility] 2019 2:53pm 2020 4:43pm Insulin Degludec (Tresiba Flextouch U-100) 100 unit/mL (3 mL) insulin pen Disconti nued 25 UNIT SUBCUT daily September 13, 2020 9:44am [facility] er 2019 10:06a m continue increasing by 2 units every 3 days until blood sugars are in the 130 range Clopidogrel Bisulfate (Clopidogrel) 75 mg tablet Disconti nued 75 MG PO 3 times per week September 13, 2020 10:02am March 21, 2022 10:35a m Insulin Degludec (Tresiba Flextouch U-100) 100 unit/mL (3 mL) insulin pen Disconti nued 25 UNIT SUBCUT daily r 2019 10:06am [facility] er 2019 1:41pm 38 units daily Insulin Degludec (Tresiba Flextouch U-100) 200 unit/mL (3 mL) insulin pen Disconti nued 38 UNIT SUBCUT daily 9 r 2019 1:39pm March 21, 2022 10:35a m 38 units daily Linagliptin (Tradjenta) 5 mg tablet Disconti nued 5 MG PO daily 30 2019 9:41am ry 2020 7:44am Atorvastatin Calcium (Lipitor) 40 mg tablet Disconti nued 40 MG PO Every Night 2019 3:49pm April 30, 2021 9:00am Cholecalcifer ol (Vitamin D3) (Vitamin D3) 25 mcg (1,000 unit) capsule Active 25 MCG PO daily 2019 1:00am Omeprazole Disconti nued 20 MG PO Daily 2020 7:17am Novemb er 2020 2:08pm Levothyroxine Sodium Disconti nued 75 MCG PO daily 2020 10:16am June 18, 2021 12:04p m [...] Gabapentin Disconti nued 800 MG PO .COMPLEX February 28, 2021 11:48am July 01, 2021 1:17pm 800 mg PO take one tablet at lunchtime and one tablet at bedtime; Insulin Degludec (Tresiba Flextouch U-200) 200 unit/mL (3 mL) insulin pen Disconti nued 38 UNIT SUBCUT Every Night March 20, 2021 8:52am June 07, 2021 10:04a m Linagliptin (Tradjenta) 5 mg tablet Disconti nued 5 MG PO daily April 17, 2021 1:18pm [facility] er 2020 9:59am Atorvastatin Calcium (Lipitor) 40 mg tablet Active 40 MG PO Every Night April 30, 2021 8:59am Lancets Disconti nued 0 .ROUTE .MEDSUPPLY May 23, 2021 7:48am [facility] er 2020 10:44a m As directed twice a day Dx E11.9 Blood Sugar Diagnostic (Precision Q-I-D) strip Disconti nued 0 .ROUTE .MEDSUPPLY May 23, 2021 7:48am May 08, 2023 4:28pm As directed twice a day Dx E11.9 Insulin Degludec (Tresiba Flextouch U-200) 200 unit/mL (3 mL) insulin pen Disconti nued 38 UNIT SUBCUT Every Night June 07, 2021 10:04am [facility] er 2020 7:22am Levothyroxine Sodium Active 75 MCG PO daily 90 90 June 18, 2021 12:04pm Gabapentin Disconti nued 800 MG PO .COMPLEX 60 July 01, 2021 1:17pm [facility] er 2020 10:54a m 800 mg PO take one tablet at lunchtime and one tablet at bedtime; Insulin Degludec (Tresiba Flextouch U-200) 200 unit/mL (3 mL) insulin pen Disconti nued 38 UNIT SUBCUT Every Night 2020 7:22am Januar 2021 11:53a m Semaglutide (Ozempic) 0.25 mg or 0.5 mg(2 mg/1.5 mL) pen injector Disconti nued 0.25 MG SUBCUT Every Week 1.5 0 2020 12:46pm May 02, 2022 7:56am Linagliptin (Tradjenta) 5 mg tablet Disconti nued 5 MG PO daily r 2020 9:59am March 21, 2022 10:33a m Lancets Disconti nued 0 .ROUTE .MEDSUPPLY 100 [facility] r 2020 10:44am Decemb er 2020 1:43pm As directed twice a day Dx E11.9 Gabapentin Disconti nued 800 MG PO .COMPLEX 180 [facility] r 2020 10:49am Dece er 2020 1:43pm 800 mg PO take one tablet at lunchtime and one tablet at bedtime; Gabapentin Disconti nued 800 MG PO .COMPLEX 180 [facility] r 2020 1:43pm Decemb er 2020 9:46am 800 mg PO take one tablet at lunchtime and one tablet at bedtime; Lancets Disconti nued 0 .ROUTE .MEDSUPPLY 100 [facility] r 2020 1:43pm [facility] er 2021 11:27a m As directed twice a day Dx E11.9 Gabapentin Disconti nued 800 MG PO .COMPLEX 180 [facility] r 2020 9:45am March 21, 2022 10:17a [...] Aspirin (Adult Aspirin Regimen) 81 MG Tablet.Dr Chrissie hernandezed 81 MG PO Daily January 29, 2018 12:00am Oct r 2017 9:01pm Cephalexin (Keflex) 500 MG [...] 29, 2018 12:00am Octobe r 2017 9:00pm LKashAcidoph,Darrin acadanita, B.Lactis (Probiotic) 1 EACH Capsule Disconti nued 1 CAP PO Daily January 29, 2018 12:00am March 22, 2018 2:37pm Metformin Hcl Disconti nued 500 MG PO Twice Daily January 29, 2018 12:00am Octobe r 2017 7:06am Multivit Adult 50+ Disconti nued 1 TAB PO Daily January 29, 2018 12:00am March 22, 2018 2:37pm Richmond-3/Dha/E pa/Fish Oil (Fish Oil Richmond-3 Ec 1,200 Mg) 1 EACH Capsule.Dr Maonti nued 1 EACH PO Daily January 29, 2018 12:00am Octobe r 2017 8:57pm Omeprazole Disconti nued 20 MG PO Daily January 29, 2018 12:00am Februa 2020 7:18am Potassium Gluconate Disconti nued 500 MG PO Daily January 29, 2018 12:00am April 07, 2018 6:40pm Duloxetine Hcl Disconti nued 60 MG PO Daily March 22, 2018 12:00am Octobe r 2017 8:54pm Amiodarone Hcl (Cordarone) 200 MG Tablet Disconti nued 200 MG PO Daily 30 March 26, 2018 12:00am April 07, 2018 6:40pm Amiodarone Hcl (Cordarone) 200 MG Tablet Disconti nued 200 MG PO Twice Daily March 26, 2018 12:00April 07, 2018 6:40pm take bid for 2 weeks then just take 200mg daily Docusate Sodium (Colace) 100 MG Capsule Disconti nued 100 MG PO Twice Daily 60 March 26, 2018 12:00April 07, 2018 6:40pm Magnesium Oxide (Mag-Oxide) 200 MG Tablet Disconti nued 400 MG PO Twice Daily 60 March 26, 2018 12:00am April 07, 2018 6:40pm Cefuroxime Axetil (Ceftin) 500 MG Tablet Disconti nued 500 MG PO Twice Daily 14 March 26, 2018 12:00am April 07, 2018 [...] MG PO Daily August 23, 2018 12:00am Novua y 2018 5:07am Metformin Hcl Disconti nued 500 MG PO Bedtime August 24, 2018 12:00am Novua y 2018 5:07am Benzonatate (Tessalon Perles) 100 MG Capsule Disconti nued 100 MG PO TID February 13, 2019 12:00am May 03, 2019 10:52a m Ondansetron (Zofran Odt) 4 MG tablet,disint egrating Disconti nued 4 MG PO Q6H 10 May 03, 2019 12:00am May 01, 2020 [...] 2022 12:00am June 05, 2022 12:13p m Richmond-3 Fatty Acids (Richmond-3) 1,000 MG capsule Disconti nued 1000 MG [...] Disconti nued 50 MG PO Twice Daily 2021 1:00am May 08, 2023 4:29pm Lidocaine (Lidoderm Patch) 700 MG adhesive patch,medicat ed Disconti nued 700 MG TOPIC Daily 2021 1:00am May 08, 2023 4:28pm Prednisone Disconti nued 40 MG PO Daily 4 2021 1:00am April 16, 2023 12:07p m Lidocaine (Lidoderm Patch) 700 MG adhesive patch,medicat ed Disconti nued 1 PATCH TOPIC Daily 30 2021 1:00am April 16, 2023 12:06p m may wear up to 12 hours Prednisone Disconti nued 40 MG PO Daily 5 Decemb r 2021 1:00am April 16, 2023 12:07p m [...] UAL As Directed May 08, 2023 12:00am Krill/Richmond-3 /Dha/Epa/Lipi ds (Richmond-3 Krill Oil 500 Mg Sfgl) 1 EACH [...] Disconti nued 500 [facility]H [facility] 12:[facility] Octobe r 2019 10:01a m Tramadol Hcl Disconti nued 50 MG [facility] Q8H [facility] 12:00am Octobe r 2019 12:02a m Doxycycline Hyclate Disconti nued 100 MG PO Twice Daily June 04, 2021 4:01pm [facility] er 2020 7:05am Azithromycin Disconti nued 0 [...] nued MG PO September 06, 2020 12:00am [facility] er 2019 9:43am Insulin Degludec (Tresiba Flextouch [...] PO Every Night September 11, 2020 12:00am Februa ry 2020 9:30am Insulin Degludec (Tresiba Flextouch U-200) 200 unit/mL (3 mL) insulin pen Disconti nued 38 UNIT SUBCUT Every Night 9 r 2019 1:00am Februa ry 2020 10:07a m Hydrocodone/A cetaminophen (Milaca 5-325 Tablet) 5-325 mg tablet Disconti nued 1 TAB PO Twice Daily 60 30 r 2019 y 2020 1:02am Docusate Sodium Disconti nued 100 MG PO Twice Daily 60 November 19, 2020 1:00am February 28, 2021 11:13a m Hydrocodone/A cetaminophen (Milaca 5-325 Tablet) 5-325 mg tablet Disconti nued 1 TAB PO Twice Daily 60 30 November 19, 2020 Februa ry 2020 1:02am Varicella-Zos ter Ge Vac,2 Of 2 (Shingrix Ge Antigen Component) 50 mcg suspension for reconstitutio n Disconti nued 50 MCG IM .COMPLEX 1 November 19, 2020 1:00am Novua y 2020 11:33a m 50 mcg IM admin now and then again in 2-6 months; Varicella-Zos ter Ge Vac,2 Of 2 (Shingrix Ge Antigen Component) 50 mcg suspension for reconstitutio n Disconti nued 50 MCG IM .COMPLEX 1 November 19, 2020 11:33am Novemb er 2020 2:09pm 50 mcg IM admin now and then again in 2-6 months; Cephalexin Disconti nued 750 MG PO Q12H y 2020 1:00am February 21, 2021 1:37pm Pantoprazole Sodium (Protonix) 40 mg tablet,delaye d release (DR/EC) Disconti nued 40 MG PO daily 30 Novembe r 2020 1:00am May 08, 2023 4:25pm Richmond-3 Fatty Acids (Fish Oil Concentrate) 1,000 mg capsule Disconti nued 1000 MG PO Twice Daily 60 Novembe r 2020 1:00am May 03, 2022 11:24a m Immunizations Immunization Event Date Not Given Reason Dose Number Tree Trimmer Helper Lot Number Vaccine Information Statement (VIS) Detail SARS-COV-2 (COVID-19) MODERNA July 07, 2021 [id number] Fluzone QUAD August 16, 2017 Fluzone QUAD August 17, 2018 Influenza, high-dose, Quadrivalent October 18, 2020 [id number] Influenza, high-dose, Quadrivalent October 04, 2021 [id number] Pneumococcal 13-Valent Conjugate Vaccine September 08, 2018 Pneumococcal 23-Valent Polysaccharide Vaccine October 03, 2013 Procedures Procedure Date Performed Status Foot 3 Views LT May 08, 2023 3:35pm completed Chest AP Portable May 08, 2023 3:40pm complet ed Knee 3 Views RT May 08, 2023 3:40pm completed Venous Dplx Extrem RT May 08, 2023 3:36pm com pleted Lower Extrem WO Cont LT May 08, 2023 6:04pm c ompleted Blood Culture May 08, 2023 completed Gram Stain May 08, 2023 completed Wound Culture May 08, 2023 completed Relevant Diagnostic Tests and/or Laboratory Data Laboratory Results Test Date/Time Result Interpretation Reference Range Result Comment Performing Site White Blood Count May 13, 2023 6:43am 5.9 10^3/uL 4.1-10.2 [facility] [id number] 214 [facility] [address] Red Blood Count May 13, 2023 6:43am 4.40 10^6/uL 3.80-5.20 [facility] [id number] 214 [facility] [place] [address] Hemoglobin May 13, 2023 6:43am 12.7 g/dL 11.5-15.5 [facility] [id number] [address] [facility] [place] [address] Hematocrit May 13, 2023 6:43am 37.8 % 35-46 [facility] [id number] [address] [facility] [place] [address] Mean Corpuscular Volume May 13, 2023 6:43am 85.9 fL 82.0-98.0 [facility] [id number] [address] [facility] [place] [address] Mean Corpuscular Hemoglobin May 13, 2023 6:43am 28.9 pg 27.0-34.0 [facility] [id number] [address] [facility] [place] [address] Mean Corpuscular Hemoglobin Concent May 13, 2023 6:43am 33.6 g/dL 31.0-36.0 [facility] [id number] [address] [facility] [place] [address] RDW Standard Deviation May 13, 2023 6:43am 46.1 fL 37-49 [facility] [id number] [address] [facility] [place] [address] RDW Coefficient of Variation May 13, 2023 6:43am 14.5 % 11.8-14.8 [facility] [id number] [address] [facility] [place] [address] Platelet Count May 13, 2023 6:43am 232 10^3/uL 150-360 [facility] [id number] [address] [facility] [place] [address] Mean Platelet Volume May 13, 2023 6:43am 10.3 fL 9.4-12.3 [facility] [id number] [address] [facility] [place] [address] Neutrophils (%) (Auto) May 13, 2023 6:43am 53.8 % 42-75 [facility] [id number] [address] [facility] [place] [address] Lymphocytes (%) (Auto) May 13, 2023 6:43am 34.0 % 14-42 [facility] [id number] 214 [facility] [place] [address] Monocytes (%) (Auto) May 13, 2023 6:43am 8.6 % 4-13 [facility] [id number] 214 [facility] [place] [address] Eosinophils (%) (Auto) May 13, 2023 6:43am 2.0 % 0-6 [place] [id number] 214 [facility] [place] [address] Basophils (%) (Auto) May 13, 2023 6:43am 0.8 % 0-2 [place] [id number] 214 [facility] [place] [address] Immature Granulocytes % May 13, 2023 6:43am 0.8 % 0.0-0.7 [id number] [facility] [place] [address] Neutrophils # (Auto) May 13, 2023 6:43am 3.2 10^3uL 1.8-6.6 [place] [id number] 214 [facility] [place] [address] Lymphocytes # (Auto) May 13, 2023 6:43am 2.0 10^3/uL 1.0-3.1 [place] [id number] [address] [facility] [place] [address] Monocytes # (Auto) May 13, 2023 6:43am 0.5 10^3uL 0.0-1.0 [place] [id number] [address] [facility] [place] [address] Eosinophils # (Auto) May 13, 2023 6:43am 0.1 10^3uL 0.0-0.5 [place] [id number] [address] [place] [address] Basophils # (Auto) May 13, 2023 6:43am 0.1 10^3/uL 0.0-0.1 [facility] [id number] [address] [facility] [place] [address] Erythrocyte Sedimentatio n Rate May 08, 2023 3:36pm 19 mm/hr 0-30 [facility] [id number] [address] [facility] [place] [address] Prothrombin Time May 08, 2023 4:04pm 18.4 SEC 9.8-12.7 [facility] [id number] [address] [facility] [place] [address] INR Internationa l Normalized Ratio May 08, 2023 4:04pm 1.64 [facility] [id number] [address] [facility] [place] [address] Activated Partial Thromboplast Time May 08, 2023 4:04pm 63.0 SEC 25-36 [facility] [id number] [address] [facility] [place] [address] Urine Color May 08, 2023 4:44pm Yellow Yellow [facility] [id number] [address] [facility] [place] [address] Urine Clarity May 08, 2023 4:44pm Clear Clear [facility] [id number] [address] [facility] [place] [address] Urine pH May 08, 2023 4:44pm 7.0 6.0-8.0 [facility] [id number] [address] [facility] [place] [address] Urine Specific [place] May 08, 2023 4:44pm 1.018 1.000-1.03 0 [facility] [id number] [address] [facility] [place] [address] Urine Protein May 08, 2023 4:44pm Trace Negative [facility] [id number] [address] [facility] [place] [address] Urine Glucose (UA) May 08, 2023 4:44pm Negative Negative [facility] [id number] [address] [place] [address] Urine Ketones May 08, 2023 4:44pm Negative Negative [facility] [id number] [address] [place] [address] Urine Occult Blood May 08, 2023 4:44pm Negative Negative [facility] [id number] [address] [place] [address] Urine Nitrate May 08, 2023 4:44pm Negative Negative [facility] [id number] [address] [place] [address] Urine Bilirubin May 08, 2023 4:44pm Negative Negative [facility] [id number] [address] [place] [address] Urine Urobilinogen May 08, 2023 4:44pm 0.2 0.2-1.0 [facility] [id number] [address] [place] [address] Urine Leukocyte Esterase May 08, 2023 4:44pm Negative Negative [facility] [id number] [address] [place] [address] Urine WBC May 08, 2023 4:44pm 0-2 /HPF 0-3 [facility] [id number] [address] [place] [address] Urine Culture Indicated May 08, 2023 4:44pm No Culture not indicated. [facility] [id number] [address] [place] [address] Urine Bacteria May 08, 2023 4:44pm Few /HPF NONE SEEN [facility] [id number] [address] [place] [address] Sodium Level May 13, 2023 6:43am 138 mmol/L 136-145 [facility] [id number] [address] [place] [address] Potassium Level May 13, 2023 6:43am 4.0 mmol/L 3.5-5.1 [facility] [id number] [address] [place] [address] Chloride Level May 13, 2023 6:43am 110 mmol/L 98-107 [facility] [id number] [address] [facility] [place] [address] Carbon Dioxide Level May 13, 2023 6:43am 26 mmol/L 21-32 [facility] [id number] [address] [facility] [place] [address] Anion Gap May 13, 2023 6:43am 2.0 MMOL/L 1.0-15.0 [facility] [id number] [address] [facility] [place] [address] Blood Urea Nitrogen May 13, 2023 6:43am 24 mg/dL 7-18 [facility] [id number] [address] [facility] [place] [address] Creatinine May 13, 2023 6:43am 1.01 mg/dL 0.55-1.02 [facility] [id number] 214 [facility] [place] [address] Estimated GFR (MDRD) May 13, 2023 6:43am 52 UNITS= mL/min/1.73m squared Unable to flag low results Results less than 60 may warrant further investigationPa tients race is not known. If the patient is , multiply the calculated GFR result provided by 1.21. GFR Estimate should not be used to alter drug dosages. [facility] [id number] [address] [facility] [place] [address] BUN/Creatini ne Ratio May 13, 2023 6:43am 23.8 10.0-20.00 [facility] [id number] [address] [facility] [place] [address] Glucose Level May 13, 2023 6:43am 162 mg/dL 70-99 [facility] [id number] [address] [facility] [place] [address] Bedside Glucose May 13, 2023 11:01am 252 MG/DL 70-99 Point of Care 214 [facility] [place] [address] Calculated Osmolality May 13, 2023 6:43am 284 275-295 [facility] [id number] [address] [facility] [place] [address] Calcium Level May 13, 2023 6:43am 9.2 mg/dL 8.5-10.1 [facility] [id number] [address] [place] [address] [place] [address] Troponin I High Sensitivity May 08, 2023 4:04pm 11.1 ng/L 0.00-49.9 | | FEMALE: | MALE: || Low Risk (Negative) | < 50 ng/L | < 80 ng/L | | Intermediate Risk | 50 - 110 ng/L | 80 - 110 ng/L | | High Risk (Critical)| >= 111 ng/L | >= 111 ng/L | | | [id number] [place] [address] [place] [address] Magnesium Level May 13, 2023 6:43am 2.0 mg/dL 1.8-2.[id number] [place] [address] [place] [address] Aspartate Amino Transf (AST/SGOT) May 13, 2023 6:43am 43 U/L 15-37 [place] [id number] [address] [place] [address] [place] [address] Alanine Aminotransfe rase (ALT/SGPT) May 13, 2023 6:43am 50 U/L 13-56 [facility] [id number] [address] [place] [address] [place] [address] Alkaline Phosphatase May 13, 2023 6:43am 101 U/L 45-117 [place] [id number] [address] [place] [address] [place] [address] Total Bilirubin May 13, 2023 6:43am 0.41 mg/dL 0.20-1.00 [facility] [id number] [address] [facility] [place] [address] Total Protein May 13, 2023 6:43am 7.1 g/dL 6.40-8.20 [facility] [id number] [address] [facility] [place] [address] Albumin May 13, 2023 6:43am 3.0 g/dL 3.4-5.0 [facility] [id number] [address] [facility] [place] [address] Globulin May 13, 2023 6:43am 4.1 Ratio 1.3-4.9 [facility] [id number] [address] [facility] [place] [address] Albumin/Glob ulin Ratio May 13, 2023 6:43am 0.7 Ratio 1.2-2.3 [facility] [id number] [address] [facility] [place] [address] Lactic Acid Level May 08, 2023 8:35pm 1.5 mmol/L 0.40-2.00 [facility] [id number] [address] [facility] [place] [address] Lipase May 08, 2023 4:04pm 51 U/L 13-75 [facility] [id number] [address] [facility] [place] [address] B-Type Natriuretic Peptide May 08, 2023 4:04pm 234 PG/ML 0-100 [facility] [id number] [address] [facility] [place] [address] C-Reactive Protein May 08, 2023 4:04pm 6.53 mg/dL 0.00-0.30 [facility] [id number] [address] [facility] [place] [address] Vancomycin Level Peak May 11, 2023 9:03pm 32.5 ug/mL 20.0-40.0 [facility] [id number] [address] [facility] [place] [address] Vancomycin Level Trough May 11, 2023 5:50pm 10.1 ug/mL 10.0-20.0 [facility] [id number] 214 [facility] [place] [address] Procalcitoni n May 08, 2023 4:04pm 0.69 ng/mL 0.00-0.09 Procalcitonin levels show an increase within 2-6 hours and peak at 6-12 hours of infection. Procalcitonin has a half life of 25-30 hours once controlled by the immune system. This assay is only intended to aid in the risk assessment of a critically ill patient.Concent rations under 0.5 ng/mL are interpreted as a low risk of severe sepsis and/or septic shock.Concentra tions between 0.5 and 2.0 ng/mL should be interpreted with consideration of the patient's history.Concent rations >2.0 ng/mL are interpreted as high risk of severe sepsis and/or septic shock. [facility] [id number] [address] [facility] [place] [address] MRSA Surveillance Screen May 10, 2023 10:26am Negative NEGATIVE [facility] [id number] [address] [place] [address] [place] [address] Clostridium difficile Toxin A Gene June 02, 2023 10:41am Negative NEGATIVE Results from the C. difficile rt-PCR Assay should be interpreted in conjunction with other laboratory and clinical data.Erroneous test results might occur from improper specimen collection, handling and storage procedures. [facility] [id number] [address] [facility] [place] [address] SARS-CoV-2 (PCR) May 08, 2023 4:23pm Negative Negative Negative results do not preclude [id number] tion and should not be used as the sole basis for treatment or other patient management decisions. Results from the molecular SARS-CoV-2 test should be correlated with the clinical history, epidemiological data, and other data available to the clinician evaluating the patient.This test has not been FDA cleared or approved.This test has been authorized by the FDA under an EUA for use by authorized laboratories.Th is test has been authorized only for the simultaneous qualitative detection and differentiation of nucleic acids from SARS-CoV-2 and not for any viruses or pathogens. [facility] [id number] [address] [facility] [place] [address] Soft Tissue MRSA (PCR) May 08, 2023 5:57pm Negative NEGATIVE [facility] [id number] [address] [facility] [place] [address] Soft Tissue S. aureus (PCR) May 08, 2023 5:57pm Negative NEGATIVE XPert MRSA/SA Soft Skin & Tissue Assay is included as part of Wound Culture.Further ID and Sensitivities to follow. [facility] [id number] [address] [facility] [place] [address] SARS-CoV-2 Antigen (Rapid) May 08, 2023 4:04pm Presumptive negative Negative The sensitivity and specificity of SARS-COV 2 Antigen Reagent Systems are not as accurate as molecular methods for the detection of the virus. This means that there is a greater false negative and false positive rate than for molecular testing. Negative results do not rule out SARS-COV-2 infection and should not be used as the sole basis for treatment or patient management decisions, including infection control decisions. Negative results should be considered in the context of a patient's recent exposures, history and the presence of clinical signs and symptoms consistent with COVID-19, and confirmed with a molecular assay, if necessary, for patient management.This test has not been FDA cleared or approved.This test has been authorized by FDA under an EUA for use by authorized laboratories. [facility] [id number] [address] [facility] [place] [address] Microbiology Results Procedure Source Result Collection Date/Time Result Date/Time Result Comment Performing Site Blood Culture Blood Enterococcus faecalis May 08, 2023 4:04pm May 11, 2023 9:33am [facility] [id number] [address] [facility] [place] [address] Gram Stain Foot, Left May 08, 2023 5:57pm May 09, 2023 11:58am [facility] [id number] [address] [facility] [place] [address] Wound Culture Foot, Left Enterococ faecalis - (Group D) May 08, 2023 5:57pm May 10, 2023 8:00am [facility] [id number] [address] [facility] [place] [address] Diagnostic Imaging Reports Report Dictated Date/Time Dictated By Status Magnetic Resonance Imaging Report May 08, 2023 4:42pm Maynor Le MD completed [address], Critical access hospital Diagnostic Imaging Signed Patient: Grazyna Dale : 1940 Age: 83 Gender: F ADM Date: 05/08/23 DOS: 05/08/23 Primary Care Physician: Moise Reed DO Ordering Physician: Tae Aldana MD Location: ER Ultrasound Unilateral venous ultrasound of the lower extremity. Indication: Right leg swelling. Jeffries-scale and color flow Doppler with Doppler spectral analysis of the deep venous system of the right lower extremity was performed. The distal external iliac through calf veins were evaluated. The visualized veins are patent, compressible, and demonstrate normal venous waveforms and augmentation. In the popliteal fossa there is a slightly complex cyst measuring 4.1 x 3.6 x 2.2 cm. Impression: No sonographic evidence of deep venous thrombosis in the right lower extremity. 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 Act 112: NO - Not indicated. Dictated By:Maynor Le MD Electronically Signed By: Maynor Le MD Signed Date/Time:05/08/231644 Transport Aircrewman: [email or web address] Dictated Date: 05/08/231641 Transcribed Date/Time:05/08/231641 CC: Moise Reed DO; Tae Aldana MD ; Report Dictated Date/Time Dictated By Status Magnetic Resonance Imaging Report May 08, 2023 6:45pm Maynor Le MD completed [address], Critical access hospital Diagnostic Imaging Signed Patient: Grazyna Dale : 1940 Age: 83 Gender: F ADM Date: 05/08/23 DOS: 05/08/23 Primary Care Physician: Moise Reed DO Ordering Physician: YAO Avitia Location: AC CAT SCAN Lower Extrem WO Cont LT INDICATION: Foot swelling. Evaluate for osteomyelitis. TECHNIQUE: Helical scanning of the left foot was performed with sagittal, axial and coronal reformatted images in bone and soft tissue window settings. Automated exposure control was used for radiation dose reduction. FINDINGS: There are extensive surgical changes with hardware noted in the proximal foot with plates and screws extending through the medial foot into the first metatarsal. There is fusion of the medial joints of the midfoot. The talonavicular and subtalar joints are intact. There is no periosteal reaction or bone erosion seen. No definite fracture is identified but streak artifact from the surgical hardware could obscure a subtle fracture. Distal tibia and talus are unremarkable. Distal fibula is intact. There is skin thickening and soft tissue swelling at the base of the great toe along the plantar surface. It is difficult to exclude an abscess or loculated collection as the study was performed without IV contrast. The abnormal area measures up to 3 cm in transverse diameter. The adjacent sesamoid bones and metatarsal head appear intact with no periosteal reaction or bone destruction. There is no deep soft tissue gas. IMPRESSION: There is extensive soft tissue swelling surrounding the plantar surface of the great toe. There is extensive arthrodesis of the medial foot with surgical hardware and resulting streak artifact. There is no deep soft tissue gas. Small abscesses in the abnormal great toe soft tissues cannot be excluded as the study was not performed with IV contrast and contrast enhanced MRI may be more sensitive in detecting abscesses or subtle osteomyelitis. No bone destruction is seen on the current study to suggest active osteomyelitis at this time. There is no deep soft tissue gas. Act 112: YES - In compliance with the Patient Test Result Information Act of 2018, a letter and report may be sent to the patient within 20 days. Dictated By:Maynor Le MD Electronically Signed By: Maynor Le MD Signed Date/Time:05/08/231908 Transport Aircrewman: LIYA Dictated Date: 05/08/231844 Transcribed Date/Time:05/08/231844 CC: Moise Reed DO; YAO Avitia ; Report Dictated Date/Time Dictated By Status Magnetic Resonance Imaging Report May 11, 2023 8:05am Luis Morel DO completed [address], [id number] Diagnostic Imaging Signed Patient: Grazyna Dale : 1940 Age: 83 Gender: F ADM Date: 05/10/23 DOS: 05/08/23 Primary Care Physician: Moise Reed DO Ordering Physician: Tae Aldana MD Location: Radiology CHEST ONE VIEW INDICATION:Chest pain. COMPARISON:04/12/2023 TECHNIQUE:AP portable chest 3:47 PM. FINDINGS:Cardiac silhouette is normal. Lungs are expanded and clear. No consolidation or atelectasis. No pleural effusions. There is spondylosis throughout the thoracic spine. IMPRESSION:No radiographic evidence for active disease in the chest or significant change compared to the prior study. Piedad Yonis Dictated By:Luis Morel DO Electronically Signed By: Luis Morel DO Signed Date/Time:05/11/23932 Transport Aircrewman: WHENRY Dictated Date: 05/11/23804 Transcribed Date/Time:05/11/23823 CC: Moise Reed DO; Tae Aldana MD ; Report Dictated Date/Time Dictated By Status Magnetic Resonance Imaging Report May 11, 2023 8:06am Luis Morel DO completed [place] [id number] Diagnostic Imaging Signed Patient: Grazyna Dale : 1940 Age: 83 Gender: F ADM Date: 05/10/23 DOS: 05/08/23 Primary Care Physician: Moise Reed DO Ordering Physician: Tae Aldana MD Location: Radiology Left foot 3 view INDICATION: Diabetic wound plantar surface proximal first phalanx. COMPARISON: 06/05/2022 TECHNIQUE/FINDINGS: 3 views left foot show plate and screw fixation along the medial side of first metatarsal with screws extending into the base of the second metatarsal and also through the medial and mid cuneiform and navicular bone. Alignment is normal and stable since the prior exam. No lucency or osteolysis seen along the hardware. No evidence for hardware failure. Moderate joint space narrowing and arthrosis between the talus, navicular and midfoot. No soft tissue gas. The bones are demineralized. 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 IMPRESSION: Stable appearance of hardware fusing the mid foot and first and second metatarsals. No soft tissue gas or definite plain radiographic evidence for osteomyelitis. Piedad Somers Dictated By:Luis Morel DO Electronically Signed By: Luis Morel DO Signed Date/Time:05/11/23933 Transport Aircrewman: WHENRY Dictated Date: 05/11/23805 Transcribed Date/Time:05/11/23830 CC: Moise Reed DO; Tae Aldana MD ; Report Dictated Date/Time Dictated By Status Magnetic Resonance Imaging Report May 11, 2023 8:09am Luis Morel DO completed [address], [address] Diagnostic Imaging Signed Patient: Grazyna Dale : 1940 Age: 83 Gender: F ADM Date: 05/10/23 DOS: 05/08/23 Primary Care Physician: Moise Reed DO Ordering Physician: Tae Aldana MD Location: AC Radiology Right knee 3 view INDICATION: Right knee pain. COMPARISON: 01/23/2021 FINDINGS: Severe joint space narrowing and arthrosis in the lateral and patellofemoral compartments of the knee. Chronic suprapatellar ossicles measuring greater than a centimeter. Extensive vascular calcifications in the SFA and popliteal artery. No fracture or joint effusion. 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 Piedad Somers Dictated By:Luis Morel DO Electronically Signed By: Luis Morel DO Signed Date/Time:05/11/23933 Transport Aircrewman: WHENRY Dictated Date: 05/11/23808 Transcribed Date/Time:05/11/23831 CC: Moise Reed DO; Tae Aldana MD ; Vital Signs Vital Reading Result Reference Range Collection Date/Time Height 64 [in_i] May 11, 2023 2:17pm Weight 81.19 kg May 11, 2023 2:17pm Body Temperature 97.3 [degF] 97.6-99.6 May 13, 2023 11:55am Heart Rate 73 /min 60-90 May 13, 2023 11:55am Respiratory rate 18 /min 12-24 May 13, 2023 11:55am Oxygen saturation by Pulse oximetry 95 % 95-100 May 13, 2023 11:5 5am BP Systolic 120 mm[Hg] May 13, 2023 11:55am BP Diastolic 65 mm[Hg] May 13, 2023 11:55am BMI (Body Mass Index) 30.7 kg/m2 April 172022 2:17pm Advance Directives Advance Directive Response Recorded Date/ Time Do you have Advance Directives? No August 10, 2020 9:44am Does The Patient Have A Living Will No May 10, 2023 9:04am Insurance Providers Guarantor Grazyna Dale Address [address] [place] [address] Contact Info. Home Phone: Payer Policy Id Coverage Id Subscriber's Name Subscriber Id Effective Date Expiration Date [employer] Medicare MCREP [id number] [facility]razyna Dale [id number] 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 Riki Santos Recent Diagnosis Onset Date Bacteremia Cellulitis of left foot Fever Atrial fibrillation CHF (congestive heart failure) CKD (chronic kidney disease) Diabetic foot ulcer Hypertension Hypothyroidism May 22, 2015 Mental Status Observation Response Date Recorded Cognition Normal Cognition May 13, 2023 8:39am Assessments Diagnosis Onset Date Resolution Status Bacteremia acute Cellulitis of left foot acut e Fever acute Atrial fibrillation chronic CHF (congestive heart failure) chronic CKD (chronic kidney disease) chronic Diabetic foot ulcer chronic Hypertension chronic Hypothyroidism May 22, 2015 chronic Plan of Treatment Future Tests Future scheduled test information is unavailable Pending Tests Pending diagnostic test information is unavailable Future Visits Future appointment information is unavailable Referrals to Other Providers Reason for Referral Referral Start Date Provider Provider Contact Information Provider Address Moise Reed Work Phone: [phone] [facility] [address] Future Procedures Procedure Name Ordered Date Scheduled Date BIPAP/CPAP May 10, 2023 6:30pm April 6:30pm Admit to Hospital May 08, 2023 6:01pm May 082022 6:01pm Hospitalist Consult for Admission May 08 4:49pm May 08, 2023 4:49pm Diagnosis May 08, 2023 6:01pm April 6:02pm Discharge May 13, 2023 11:36am April 11:36am Make Full Admit May 11, 2023 7:21am April 7:21am Inpatient Bed May 11, 2023 7:21am April 7:21am Future Medications Future medication information is unavailable Patient Instructions Patient instructions are unavailable Goals Acute Goals Remain Free of Injury Safely Transitions To Next L evel Of Care Demonstrates the ability to safely transition to the next level of care. Exhibit Optimal Tissue Perfu micaela Maintain Intact Skin Integri ty"
--- OUTSIDE RECORDS SUMMARY | 2023-10-17 00:45 | External Medical Summary ---
Author Name Unknown Address Unknown Organization L1E:[address] [address] Laboratory Report Ordering Provider Test Date Status MoiseDerek 07/28/2023 12:14 Final Observation Date Value Abnormality Reference (Units ) Status HbA1C 07/28/2023 13:20 7.0 Above high normal 3.8-5.6 (%) Final Glucose, estimated average 07/28/2023 13:20 154 Above high normal 70-126 (mg/dL) Final The estimated average glucos e (eAG) is an approximation of
the average glucose concentration in mg/dL over the last 90
days.

The 2010 "Standards of Medical Care in Diabetes" of the
[place] [employer] includes the following
interpretations of Hemoglobin A1c results:

>=6.5% Diagnostic of Diabetes
5.7-6.4% IFG/IGT ("Pre-Diabetes") Performing Location [address] [address]
--- OUTSIDE RECORDS SUMMARY | 2023-10-17 00:45 | External Medical Summary ---
Author Name Unknown Address Unknown Organization L1E:[facility] [address] [place] [address] Laboratory Report Ordering Provider Test Date Status Derek Phipps 07/28/2023 12:14 Final Observation Date Value Abnormality Reference (Units ) Status Sodium 07/28/2023 13:14 142 Normal 136-145 (mmol/L) Final Potassium [Moles/volume] in Specimen 07/28/2023 13:14 4.3 Normal 3.5-5.1 (mmol/L) Final Cl 07/28/2023 13:14 108 Above high normal 98-107 (mmol/L) Final CO2 07/28/2023 13:14 31 Normal 21-32 (mmol/L) Final Anion gap 07/28/2023 13:14 3.0 Normal 1.0-15.0 (MMOL/L) Final BUN 07/28/2023 13:14 18 Normal 7-18 (mg/dL) Final Creatinine 07/28/2023 13:14 1.26 Above high normal 0.55-1.02 (mg/dL) Final Glomerular filtration rate/1.73 sq M.predicted [Volume Rate/Area] in Serum, Plasma or Blood 07/28/2023 13:14 41 Final UNITS= mL/min/1.73m squared< br/> Unable to flag low results
Results less than 60 may warrant further investigation

Patients race is not known. If the patient is
Prydeinig, multiply the calculated GFR result provided by
1.21. GFR Estimate should not be used to alter drug dosages. Urea nitrogen/Creatinine [Mass Ratio] in Serum or Plasma 07/28/2023 13:14 14.3 Normal 10.0-20.00 Final Glucose 07/28/2023 13:14 150 Above high normal 70-99 (mg/dL) Final Osmolality of Serum or Plasma by calculation 07/28/2023 13:14 287 Normal 275-295 Fi nal Calcium [Mass/volume] in Specimen 07/28/2023 13:14 9.5 Normal 8.5-10.1 (mg/dL) Final Aspartate Aminotrans(SGOT) 07/28/2023 13:14 55 Above high normal 15-37 (U/L) Final ALT (Alanine aminotransferase) 07/28/2023 13:14 63 Above high normal 13-56 (U/L) Final Alk Phos 07/28/2023 13:14 150 Above high normal 45-117 (U/L) Final Bilirubin,Total 07/28/2023 13:14 0.54 Normal 0.20-1. 00 (mg/dL) Final Total Protein 07/28/2023 13:14 7.6 Normal 6.40-8.20 (g/dL) Final Albumin 07/28/2023 13:14 3.5 Normal 3.4-5.0 (g/dL ) Final Globulin [Mass/volume] in Serum 07/28/2023 13:14 4.1 Normal 1.3-4.9 (Ratio) Final Albumin/Globulin [Mass Ratio] in Serum or Plasma 07/28/2023 13:14 0.9 Below low normal 1.2-2.3 (Ratio) Final Performing Location [facility] [address] [place] [address]
--- OUTSIDE RECORDS SUMMARY | 2023-10-17 00:46 | External Medical Summary | Continuity of Care Document ---
Author Name Unknown Organization [facility] [address] Address [address] [place], [place] [id number] Care Team Providers Care Assembler Gold Frame Name Role Phone Moise Reed Primary Care Physician [phone] Encounter [facility] [id number] Date(s): 06/17/23 - 06/17/23 [facility] [address] [facility] [address] [facility], [address] [place] [address] Discharge Disposition: Home or Self Care Attending Physician: MD Cosmo, Jame Sifuentes Allergies, Adverse Reactions, Alerts Substance Reaction Severity Status meloxicam 1 reaction unknown Mild Proposed metFORMIN Diarrhea Active 1patient unsure of reaction%0A Medications acetaminophen 650 mg oral tablet, extended release Start: 06/08/22 0:11:00 EDT, ORAL, 1 Refill(s), 1 tab by mouth twice a day Start Date: 06/08/22 Status: Ordered apixaban 5 mg oral tablet Start: 06/08/22 0:12:00 EDT, 1 tab, PO, bid Start Date: 06/08/22 Status: Ordered atorvastatin 40 mg oral tablet Start: 06/08/22 0:12:00 EDT, 1 tab, PO, Daily, 90 each Start Date: 06/08/22 Status: Ordered Augmentin 500 mg-125 mg oral tablet Start: 06/18/23 10:03:00 EDT, amoxicillin 1 tab, PO, q12h, Disp# 56, Refills: 1, take one tablet bymouth twice a day for 2 months, Pharmacy: [facility] Start Date: 06/18/23 Stop Date: 08/13/23 Status: Ordered calcium (as carbonate) 600 mg oral tablet Start: 06/08/22 11:39:00 EDT, 1 tab, PO, Daily, PRN: as needed for indigestion Start Date: 06/08/22 Status: Ordered cholecalciferol 25 mcg (1000 intl units) oral capsule Start: 06/08/22 11:40:00 EDT, 1 cap, PO, Daily Start Date: 06/08/22 Status: Ordered clopidogrel 75 mg oral tablet Start: 06/08/22 0:13:00 EDT, 1 tab, PO, qMonWedFri, 36 each Start Date: 06/08/22 Status: Ordered cyanocobalamin 2500 mcg oral tablet Start: 06/08/22 11:40:00 EDT, 1 tab, PO, Daily Start Date: 06/08/22 Status: Ordered gabapentin 800 mg oral tablet Start: 06/08/22 11:36:00 EDT, 1 tab, PO, bid Start Date: 06/08/22 Status: Ordered lactobacillus rhamnosus GG oral capsule Start: 05/20/23 11:10:00 EDT, 1 cap, PO, Daily, Disp# 30 cap, Pharmacy: [facility]. Start Date: 05/20/23 Stop Date: 06/19/23 Status: Ordered levothyroxine 75 mcg (0.075 mg) oral tablet Start: 05/15/23 15:04:00 EDT, 90 tab Start Date: 05/15/23 Status: Ordered metoprolol succinate 50 mg oral tablet, extended release Start: 05/20/23 11:09:00 EDT, 1 tab, PO, Daily, Disp# 90 tab, Pharmacy: [facility]. Start Date: 05/20/23 Stop Date: 08/18/23 Status: Ordered multivitamin Start: 06/08/22 11:41:00 EDT, 1 tab, PO, Daily Start Date: 06/08/22 Status: Ordered Ozempic (0.25 mg or 0.5 mg dose) 2 mg/3 mL subQ pen Start: 05/15/23 15:04:00 EDT, 3 mL, Supply Start Date: 05/15/23 Status: Ordered pantoprazole 40 mg oral delayed release tablet Start: 06/08/22 11:37:00 EDT, 1 tab, PO, Daily Start Date: 06/08/22 Status: Ordered potassium gluconate 595 mg (99 mg elemental potassium) oral tablet Start: 06/08/22 11:40:00 EDT, 1 tab, PO, Daily Start Date: 06/08/22 Status: Ordered Prandin 0.5 mg oral tablet Start: 05/20/23 11:15:00 EDT, 1 tab, PO, tid, Disp# 90 tab, Prandin 0.5 mg TID hold dose if meal ismissed, Pharmacy: [facility] Start Date: 05/20/23 Stop Date: 06/19/23 Status: Ordered Probiotic Formula Start: 06/08/22 11:40:00 EDT, 1 cap, PO, Daily Start Date: 06/08/22 Status: Ordered Tresiba FlexTouch 100 units/mL subcutaneous solution Start: 06/08/22 11:33:00 EDT, 30 unit =, subQ, bid, Recommend Tresiba 30 BID (15 if BG < 120 or not eating); Prandin 0.5 mg TID if BG > 150; continue Ozempic 0.5 mg weekly Start Date: 06/08/22 Status: Ordered vancomycin oral capsule 125 mg Start: 05/20/23 11:11:00 EDT, 1 cap, PO, q12h, Disp# 50, stop date 06/17/2023, Pharmacy: [facility] Start Date: 05/20/23 Stop Date: 06/14/23 Status: Ordered Problem List Condition Confirmation Course Effective Dates Status H ealth Status Informant Arthritis Confirmed Active (atherosclerosis) Confirmed Active Afib Confirmed Active Diabetes Confirmed Active Glaucoma Confirmed Active Heartburn Confirmed Active Right hip pain Confirmed Active Hypertension Confirmed Active Hypothyroidism Confirmed Active Numbness Confirmed Active Pneumonia Confirmed Active Procedures Procedure Date Related Diagnosis Body Site Status LLE Angiogram w/ lithotripsy and CIGARETTE MAKING EXAMINER PT trunk and proximal pop 09/05/22 Comple leena Social History Social History Type Response Smoking Status Never smoked cigaret oriana Sex Female Patient Care team information Care Team Personnel Name: Selin Gambino Amanda Position: Pharmacist Member Role: Pharmacy - Lifetime Name: FAITH Araujo Lynn Position: Physician Functional Manager Exempt - Vasc Surg Member Role: Lifetime Relationship Address: Address: [address] [place] [address] Name: DO Reed Douglas D Position: Referring Member Role: Primary Care Provider Address: Address: [facility] [address] [facility] [place] [address] [place] Care Team Related Persons Name: MACARIO MATIAS Name: MAURY CASTRO
--- OUTSIDE RECORDS SUMMARY | 2023-10-17 00:46 | External Medical Summary | Continuity of Care Document ---
Author Name Unknown Address [address] [place] [address] Phone Organization [facility] Address [address] [place] [address] Phone Support Name Relationship Address Phone Kandi Swanson Daughter [address] [place] [address] Moise Reed Primary Care Provider [address] [place] [address] Tae Aldana Emergency Provider [address] [facility] [place] [address] Enrique Sousa Admit Provider [address] [place] [address] Riki Santos Attending Provider [address] [facility] [place] [address] Chief Complaint and Reason for Visit Chief [...] PO Every Night May 07, 2020 9:59am [facility] er 2019 3:49pm Glimepiride Disconti nued 4 MG PO Every Morning May 17, 2020 10:43am [facility] r 2019 11:39a m administer with breakfast Lancets Disconti nued 0 .ROUTE .MEDSUPPLY 100 [facility] 2019 12:00am May 23, 2021 7:48am As directed twice a day Dx E11.9 Blood Sugar Diagnostic (Onetouch Ultra Blue Test Strip) strip Disconti nued 0 .ROUTE .MEDSUPPLY 100 [facility] 2019 12:00am May 23, 2021 7:48am As directed twice a day Dx E11.9 Metoprolol Tartrate (Lopressor) 25 mg tablet Disconti nued 25 MG PO Twice Daily 60 [facility] 2019 11:58am January 22, 2021 9:46am Apixaban (Eliquis) 5 mg tablet Disconti nued 5 MG PO Twice Daily 60 [facility] 2019 2:53pm 2020 4:43pm Insulin Degludec (Tresiba Flextouch U-100) 100 unit/mL (3 mL) insulin pen Disconti nued 25 UNIT SUBCUT daily September 13, 2020 9:44am [facility] er 2019 10:06a m continue increasing by [...] 25 UNIT SUBCUT daily r 2019 10:06am [facility] er 2019 1:41pm 38 units daily Insulin [...] MG PO daily April 17, 2021 1:18pm [facility] er 2020 9:59am Atorvastatin Calcium (Lipitor) 40 mg tablet Active 40 MG PO Every Night April 30, 2021 8:59am Lancets Disconti nued 0 .ROUTE .MEDSUPPLY May 23, 2021 7:48am [facility] er 2020 10:44a m As directed twice a day Dx E11.9 Blood Sugar Diagnostic (Precision Q-I-D) strip Disconti nued 0 .ROUTE .MEDSUPPLY May 23, 2021 7:48am May 08, 2023 4:28pm As directed twice a day Dx E11.9 Insulin Degludec (Tresiba Flextouch U-200) 200 unit/mL (3 mL) insulin pen Disconti nued 38 UNIT SUBCUT Every Night June 07, 2021 10:04am [facility] er 2020 7:22am Levothyroxine Sodium Active 75 MCG PO daily 90 90 June 18, 2021 12:04pm Gabapentin Disconti nued 800 MG PO .COMPLEX 60 July 01, 2021 1:17pm [facility] er 2020 10:54a m 800 mg [...] Lancets Disconti nued 0 .ROUTE .MEDSUPPLY 100 [facility] r 2020 10:44am Decemb er 2020 1:43pm As directed twice a day Dx E11.9 Gabapentin Disconti nued 800 MG PO .COMPLEX 180 [facility] r 2020 10:49am Dece er 2020 1:43pm 800 mg PO take one tablet at lunchtime and one tablet at bedtime; Gabapentin Disconti nued 800 MG PO .COMPLEX 180 [facility] r 2020 1:43pm Decemb er 2020 9:46am 800 mg PO take one tablet at lunchtime and one tablet at bedtime; Lancets Disconti nued 0 .ROUTE .MEDSUPPLY 100 [facility] r 2020 1:43pm [facility] er 2021 11:27a m As directed twice a day Dx E11.9 Gabapentin Disconti nued 800 MG PO .COMPLEX 180 [facility] r 2020 9:45am March 21, 2022 10:17a [...] 29, 2018 12:00am March 22, 2018 2:37pm [place]-3/Dha/E pa/Fish Oil (Fish Oil [place]-3 Ec 1,200 Mg) [address] Maonti [...] 2022 12:00am June 05, 2022 12:13p m [place]-3 Fatty Acids ([place]-3) 1,000 MG capsule Disconti nued 1000 MG [...] UAL As Directed May 08, 2023 12:00am Krill/[place]-3 /Dha/Epa/Lipi ds ([place]-3 Krill Oil 500 Mg Sfgl) 1 EACH [...] Disconti nued 500 MG [facility] Q[facility]H [facility] 12:00am Oct[facility] r 2019 10:01a m Tramadol Hcl Disconti nued 50 MG PO Q8H [facility] 12:00am Octobe r 2019 12:02a m Doxycycline Hyclate Disconti nued 100 MG PO Twice Daily June 04, 2021 4:01pm [facility] er 2020 7:05am Azithromycin Disconti nued 0 [...] nued MG PO September 06, 2020 12:00am [facility] er 2019 9:43am Insulin Degludec (Tresiba [...] Februa ry 2020 10:07a m Hydrocodone/A cetaminophen ([place] 5-325 Tablet) 5-325 mg tablet Disconti nued 1 TAB PO Twice Daily 60 30 r 2019 y 2020 1:02am Docusate Sodium Disconti nued 100 MG PO Twice Daily 60 November 19, 2020 1:00am February 28, 2021 11:13a m Hydrocodone/A cetaminophen ([place] 5-325 Tablet) 5-325 mg tablet Disconti nued [...] r 2020 1:00am May 08, 2023 4:25pm [place]-3 Fatty Acids (Fish Oil Concentrate) 1,000 mg capsule Disconti nued 1000 MG PO Twice Daily 60 Novembe r 2020 1:00am May 03, 2022 11:24a m Immunizations Immunization Event Date Not Given Reason Dose Number 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 Lot Number Vaccine Information Statement (VIS) Detail SARS-COV-2 (COVID-19) MODERNA July 07, 2021 [id number] Fluzone QUAD August 16, 2017 Fluzone QUAD August 17, 2018 Influenza, high-dose, Quadrivalent October 18, 2020 [id number] Influenza, high-dose, Quadrivalent October 04, 2021 [id number] Pneumococcal 13-Valent Conjugate Vaccine September 08, 2018 [...] May 13, 2023 6:43am 5.9 10^3/uL 4.1-10.2 [facility] [id number] [address] [facility] [address] Red Blood Count May 13, 2023 6:43am 4.40 10^6/uL 3.80-5.20 [facility] [id number] 214 [facility] [place] [address] Hemoglobin May 13, 2023 6:43am 12.7 g/dL 11.5-15.5 [facility] [id number] 214 [facility] [place] [address] Hematocrit May 13, 2023 6:43am 37.8 % 35-46 [facility] [id number] [address] [facility] [place] [address] Mean Corpuscular Volume May 13, 2023 6:43am 85.9 fL 82.0-98.0 [facility] [id number] [address] [facility] [place] [address] Mean Corpuscular Hemoglobin May 13, 2023 6:43am 28.9 pg 27.0-34.0 [facility] [id number] 214 [facility] [place] [address] Mean Corpuscular Hemoglobin Concent May 13, 2023 6:43am 33.6 g/dL 31.0-36.0 [facility] [id number] 214 [facility] [place] [address] RDW Standard Deviation May 13, 2023 6:43am 46.1 fL 37-49 [facility] [id number] [address] [facility] [place] [address] RDW Coefficient of Variation May 13, 2023 6:43am 14.5 % 11.8-14.8 [facility] [id number] [address] [facility] [place] [address] Platelet Count May 13, 2023 6:43am 232 10^3/uL 150-360 [facility] [id number] [address] [facility] [place] [address] Mean Platelet Volume May 13, 2023 6:43am 10.3 fL 9.4-12.3 [facility] [id number] [address] [facility] [place] [address] Neutrophils (%) (Auto) May 13, 2023 6:43am 53.8 % 42-75 [facility] [id number] [address] [facility] [place] [address] Lymphocytes (%) (Auto) May 13, 2023 6:43am 34.0 % 14-42 [facility] [id number] [address] [place] [address] Monocytes (%) (Auto) May 13, 2023 6:43am 8.6 % 4-13 [facility] [id number] [address] [place] [address] Eosinophils (%) (Auto) May 13, 2023 6:43am 2.0 % 0-6 [place] [id number] 214 [facility] [place] [address] Basophils (%) (Auto) May 13, 2023 6:43am 0.8 % 0-2 [place] [id number] [address] [place] [address] Immature Granulocytes % May 13, 2023 6:43am 0.8 % 0.0-0.7 [id number] [place] [address] Neutrophils # (Auto) May 13, 2023 6:43am 3.2 10^3uL 1.8-6.6 [place] [id number] 214 [facility] [place] [address] Lymphocytes # (Auto) May 13, 2023 6:43am 2.0 10^3/uL 1.0-3.1 [place] [id number] [address] [facility] [place] [address] Monocytes # (Auto) May 13, 2023 6:43am 0.5 10^3uL 0.0-1.0 [place] [id number] [address] [facility] [place] [address] Eosinophils # (Auto) May 13, 2023 6:43am 0.1 10^3uL 0.0-0.5 [place] [id number] [address] [place] [address] Basophils # (Auto) May 13, 2023 6:43am 0.1 10^3/uL 0.0-0.1 [facility] [id number] 214 [facility] [place] [address] Erythrocyte Sedimentatio n Rate May 08, 2023 3:36pm 19 mm/hr 0-30 [facility] [id number] 214 [facility] [place] [address] Prothrombin Time May 08, 2023 4:04pm 18.4 SEC 9.8-12.7 [facility] [id number] 214 [facility] [place] [address] INR Internationa l Normalized Ratio May 08, 2023 4:04pm 1.64 [facility] [id number] [address] [facility] [place] [address] Activated Partial Thromboplast Time May 08, 2023 4:04pm 63.0 SEC 25-36 [facility] [id number] [address] [facility] [place] [place] [address] Urine Color May 08, 2023 4:44pm Yellow Yellow [facility] [id number] 214 [facility] [place] [address] Urine Clarity May 08, 2023 4:44pm Clear Clear [facility] [id number] [address] [facility] [place] [place] [address] Urine pH May 08, 2023 4:44pm 7.0 6.0-8.0 [facility] [id number] 214 [facility] [place] [address] Urine Specific [place] May 08, 2023 4:44pm 1.018 1.000-1.03 0 [facility] [id number] 214 [facility] [place] [address] Urine Protein May 08, 2023 4:44pm Trace Negative [facility] [id number] 214 [facility] [place] [address] Urine Glucose (UA) May 08, 2023 4:44pm Negative Negative [facility] [id number] [address] [place] [address] Urine Ketones May 08, 2023 4:44pm Negative Negative [facility] [id number] [address] [place] [address] Urine Occult Blood May 08, 2023 4:44pm Negative Negative [facility] [id number] [address] [place] [address] Urine Nitrate May 08, 2023 4:44pm Negative Negative [facility] [id number] [address] [place] [address] Urine Bilirubin May 08, 2023 4:44pm Negative Negative [facility] [id number] [address] [place] [address] Urine Urobilinogen May 08, 2023 4:44pm 0.2 0.2-1.0 [facility] [id number] [address] [place] [address] Urine Leukocyte Esterase May 08, 2023 4:44pm Negative Negative [facility] [id number] [address] [place] [address] Urine WBC May 08, 2023 4:44pm 0-2 /HPF 0-3 [facility] [id number] [address] [place] [address] Urine Culture Indicated May 08, 2023 4:44pm No Culture not indicated. [facility] [id number] [address] [place] [address] Urine Bacteria May 08, 2023 4:44pm Few /HPF NONE SEEN [facility] [id number] [address] [place] [address] Sodium Level May 13, 2023 6:43am 138 mmol/L 136-145 [facility] [id number] [address] [place] [address] Potassium Level May 13, 2023 6:43am 4.0 mmol/L 3.5-5.1 [facility] [id number] [address] [place] [address] Chloride Level May 13, 2023 6:43am 110 mmol/L 98-107 [facility] [id number] 214 [facility] [place] [address] Carbon Dioxide Level May 13, 2023 6:43am 26 mmol/L 21-32 [facility] [id number] 214 [facility] [place] [address] Anion Gap May 13, 2023 6:43am 2.0 MMOL/L 1.0-15.0 [facility] [id number] [address] [facility] [place] [address] Blood Urea Nitrogen May 13, 2023 6:43am 24 mg/dL 7-18 [facility] [id number] [address] [facility] [place] [address] Creatinine May 13, 2023 6:43am 1.01 mg/dL 0.55-1.02 [facility] [id number] [address] [place] [address] Estimated GFR (MDRD) May 13, 2023 6:43am 52 UNITS= mL/min/1.73m squared Unable to flag low results Results less than 60 may warrant further investigationPa tients race is not known. If the patient is , multiply the calculated GFR result provided by 1.21. GFR Estimate should not be used to alter drug dosages. [facility] [id number] [address] [facility] [place] [address] BUN/Creatini ne Ratio May 13, 2023 6:43am 23.8 10.0-20.00 [facility] [id number] [address] [facility] [place] [address] Glucose Level May 13, 2023 6:43am 162 mg/dL 70-99 [facility] [id number] [address] [facility] [place] [address] Bedside Glucose May 13, 2023 11:01am 252 MG/DL 70-99 Point of Care 214 [facility] [place] [address] Calculated Osmolality May 13, 2023 6:43am 284 275-295 [facility] [id number] [address] [facility] [place] [address] Calcium Level May 13, 2023 6:43am 9.2 mg/dL 8.5-10.1 [facility] [id number] [address] [place] [address] [place] [address] Troponin I High Sensitivity May 08, 2023 4:04pm 11.1 ng/L 0.00-49.9 | | FEMALE: | MALE: || Low Risk (Negative) | < 50 ng/L | < 80 ng/L | | Intermediate Risk | 50 - 110 ng/L | 80 - 110 ng/L | | High Risk (Critical)| >= 111 ng/L | >= 111 ng/L | | | [id number] [place] [address] [place] [address] Magnesium Level May 13, 2023 6:43am 2.0 mg/dL 1.8-2.[id number] [place] [address] [place] [address] Aspartate Amino Transf (AST/SGOT) May 13, 2023 6:43am 43 U/L 15-37 [place] [id number] [address] [place] [address] [place] [address] Alanine Aminotransfe rase (ALT/SGPT) May 13, 2023 6:43am 50 U/L 13-56 [facility] [id number] [address] [place] [address] [place] [address] Alkaline Phosphatase May 13, 2023 6:43am 101 U/L 45-117 [place] [id number] [address] [place] [address] [place] [address] Total Bilirubin May 13, 2023 6:43am 0.41 mg/dL 0.20-1.00 [facility] [id number] [address] [facility] [place] [address] Total Protein May 13, 2023 6:43am 7.1 g/dL 6.40-8.20 [facility] [id number] [address] [facility] [place] [address] Albumin May 13, 2023 6:43am 3.0 g/dL 3.4-5.0 [facility] [id number] [address] [facility] [place] [address] Globulin May 13, 2023 6:43am 4.1 Ratio 1.3-4.9 [facility] [id number] [address] [facility] [place] [address] Albumin/Glob ulin Ratio May 13, 2023 6:43am 0.7 Ratio 1.2-2.3 [facility] [id number] [address] [facility] [place] [address] Lactic Acid Level May 08, 2023 8:35pm 1.5 mmol/L 0.40-2.00 [facility] [id number] [address] [facility] [place] [address] Lipase May 08, 2023 4:04pm 51 U/L 13-75 [facility] [id number] [address] [facility] [place] [address] B-Type Natriuretic Peptide May 08, 2023 4:04pm 234 PG/ML 0-100 [facility] [id number] [address] [facility] [place] [address] C-Reactive Protein May 08, 2023 4:04pm 6.53 mg/dL 0.00-0.30 [facility] [id number] [address] [facility] [place] [address] Vancomycin Level Peak May 11, 2023 9:03pm 32.5 ug/mL 20.0-40.0 [facility] [id number] [address] [facility] [place] [address] Vancomycin Level Trough May 11, 2023 5:50pm 10.1 ug/mL 10.0-20.0 [facility] [id number] 214 [facility] [place] [address] Procalcitoni n May 08, 2023 4:04pm 0.69 [...] risk of severe sepsis and/or septic shock. [facility] [id number] 214 [facility] [place] [address] MRSA Surveillance Screen May 10, 2023 10:26am Negative NEGATIVE [facility] [id number] [address] [place] [address] [place] [address] Clostridium difficile Toxin A Gene June 02, 2023 10:41am Negative NEGATIVE Results from the C. difficile rt-PCR Assay should be interpreted in conjunction with other laboratory and clinical data.Erroneous test results might occur from improper specimen collection, handling and storage procedures. [facility] [id number] [address] [facility] [place] [address] SARS-CoV-2 (PCR) May 08, 2023 4:23pm Negative Negative Negative results do not preclude [id number] tion and should not be used as [...] and not for any viruses or pathogens. [facility] [id number] [address] [facility] [place] [address] Soft Tissue MRSA (PCR) May 08, 2023 5:57pm Negative NEGATIVE [facility] [id number] [address] [facility] [place] [address] Soft Tissue S. aureus (PCR) May 08, 2023 5:57pm Negative NEGATIVE XPert MRSA/SA Soft Skin & Tissue Assay is included as part of Wound Culture.Further ID and Sensitivities to follow. [facility] [id number] [address] [facility] [place] [address] SARS-CoV-2 Antigen (Rapid) May 08, 2023 4:04pm [...] an EUA for use by authorized laboratories. [facility] [id number] [address] [facility] [place] [address] Microbiology Results Procedure Source Result Collection Date/Time Result Date/Time Result Comment Performing Site Blood Culture Blood Enterococcus faecalis May 08, 2023 4:04pm May 11, 2023 9:33am [facility] [id number] [address] [facility] [place] [address] Gram Stain Foot, Left May 08, 2023 5:57pm May 09, 2023 11:58am [facility] [id number] [address] [facility] [place] [address] Wound Culture Foot, Left Enterococ faecalis - (Group D) May 08, 2023 5:57pm May 10, 2023 8:00am [facility] [id number] [address] [facility] [place] [address] Diagnostic Imaging Reports Report Dictated Date/Time Dictated By Status Magnetic Resonance Imaging Report May 08, 2023 4:42pm Maynor Le MD completed [address], [facility] Diagnostic Imaging Signed Patient: Grazyna Dale : [...] Signed By: Maynor Le MD Signed Date/Time:05/08/231644 Motor Bike Mechanic: [email or web address] Dictated Date: 05/08/231641 Transcribed Date/Time:05/08/231641 CC: Moise Reed DO; Tae Aldana MD ; Report Dictated Date/Time Dictated By Status Magnetic Resonance Imaging Report May 08, 2023 6:45pm Maynor Le MD completed [address], [facility] Diagnostic Imaging Signed Patient: Grazyna Dale : [...] Signed By: Maynor Le MD Signed Date/Time:05/08/231908 Motor Bike Mechanic: LIYA Dictated Date: 05/08/231844 Transcribed Date/Time:05/08/231844 CC: Moise Reed DO; YAO Avitia ; Report Dictated Date/Time Dictated By Status Magnetic Resonance Imaging Report May 11, 2023 8:05am Luis Morel DO completed [address], [address] Diagnostic Imaging Signed Patient: Grazyna Dale : [...] Signed By: Luis Morel DO Signed Date/Time:05/11/23932 Motor Bike Mechanic: WHENRY Dictated Date: 05/11/23804 Transcribed Date/Time:05/11/23823 CC: Moise Reed DO; Tae Aldana MD ; Report Dictated Date/Time Dictated By Status Magnetic Resonance Imaging Report May 11, 2023 8:06am Luis Morel DO completed [place] [address] Diagnostic Imaging Signed Patient: Grazyna Dale : [...] Signed By: Luis Morel DO Signed Date/Time:05/11/23933 Motor Bike Mechanic: WHENRY Dictated Date: 05/11/23805 Transcribed Date/Time:05/11/23830 CC: Moise Reed DO; Tae Aldana MD ; Report Dictated Date/Time Dictated By Status Magnetic Resonance Imaging Report May 11, 2023 8:09am Luis Morel DO completed [address], [address] Diagnostic Imaging Signed Patient: Grazyna Dale : [...] Signed By: Luis Morel DO Signed Date/Time:05/11/23933 Motor Bike Mechanic: WHENRY Dictated Date: 05/11/23808 Transcribed Date/Time:05/11/23831 CC: [...] 9:04am Insurance Providers Guarantor Grazyna Dale Address [address] [place] [address] Contact Info. 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
--- OUTSIDE RECORDS SUMMARY | 2023-10-17 00:47 | External Medical Summary | Continuity of Care Document ---
Author Name Unknown Address [address] [place] [address] Phone Organization [facility] Address [address] [facility] [place] [address] Phone Support Name Relationship Address Phone Kandi Swanson Daughter [address] [place] [address] Moise Reed Primary Care Provider [address] [place] [address] Tae Aldana Emergency Provider [address] [facility] [place] [address] Enrique Sousa Admit Provider [address] [facility] [place] [address] Riki Santos Attending Provider [address] [facility] [place] [address] Chief Complaint and Reason for Visit Chief Complaint Diabetic Education L foot cellulitis, diabetic ulcer Laboratory Specimen Drop Off Reason for [...] PO .COMPLEX 210 30 January 24, 2020 12:00am May 01, 2020 [...] PO Every Night May 07, 2020 9:59am [facility] er 2019 3:49pm Glimepiride Disconti nued 4 MG PO Every Morning May 17, 2020 10:43am [facility] r 2019 11:39a m administer with breakfast Lancets Disconti nued 0 [facility] [place] 2019 12:00am May 23, 2021 7:48am As directed twice a day Dx E11.9 Blood Sugar Diagnostic (Onetouch Ultra Blue Test Strip) strip Disconti nued 0 .ROUTE .MEDSUPPLY 100 [facility] 2019 12:00am May 23, 2021 7:48am As directed twice a day Dx E11.9 Metoprolol Tartrate (Lopressor) 25 mg tablet Disconti nued 25 MG PO Twice Daily 60 [facility] 2019 11:58am January 22, 2021 9:46am Apixaban (Eliquis) 5 mg tablet Disconti nued 5 MG PO Twice Daily 60 [facility] [place] 2019 2:53pm 2020 4:43pm Insulin Degludec (Tresiba Flextouch U-100) 100 unit/mL (3 mL) insulin pen Disconti nued 25 UNIT SUBCUT daily September 13, 2020 9:44am [facility] er 2019 10:06a m continue increasing by 2 units every 3 days until blood sugars are in the 130 range Clopidogrel Bisulfate (Clopidogrel) 75 mg tablet Disconti nued 75 MG PO 3 times per week September 13, 2020 10:02am March 21, 2022 10:35a m Insulin Degludec (Tresiba Flextouch U-100) 100 unit/mL (3 mL) insulin pen Disconti nued 25 UNIT SUBCUT daily 15 r 2019 10:06am [facility] er 2019 1:41pm 38 units daily Insulin [...] MG PO daily April 17, 2021 1:18pm [facility] er 2020 9:59am Atorvastatin Calcium (Lipitor) 40 mg tablet Active 40 MG PO Every Night April 30, 2021 8:59am Lancets Disconti nued 0 .ROUTE .MEDSUPPLY 100 May 23, 2021 7:48am [facility] er 2020 10:44a m As directed twice a day Dx E11.9 Blood Sugar Diagnostic (Precision Q-I-D) strip Disconti nued 0 .ROUTE .MEDSUPPLY 100 May 23, 2021 7:48am May 08, 2023 4:28pm As directed twice a day Dx E11.9 Insulin Degludec (Tresiba Flextouch U-200) 200 unit/mL (3 mL) insulin pen Disconti nued 38 UNIT SUBCUT Every Night June 07, 2021 10:04am [facility] er 2020 7:22am Levothyroxine Sodium Active 75 MCG PO daily 90 June 18, 2021 12:04pm Gabapentin Disconti nued 800 MG PO .COMPLEX 60 July 01, 2021 1:17pm [facility] er 2020 10:54a m 800 mg [...] Lancets Disconti nued 0 .ROUTE .MEDSUPPLY 100 [facility] r 2020 10:44am Decemb er 2020 1:43pm As directed twice a day Dx E11.9 Gabapentin Disconti nued 800 MG PO .COMPLEX 180 [facility] r 2020 10:49am Dece er 2020 1:43pm 800 mg PO take one tablet at lunchtime and one tablet at bedtime; Gabapentin Disconti nued 800 MG PO .COMPLEX 180 [facility] r 2020 1:43pm Decemb er 2020 9:46am 800 mg PO take one tablet at lunchtime and one tablet at bedtime; Lancets Disconti nued 0 .ROUTE .MEDSUPPLY 100 [facility] r 2020 1:43pm [facility] er 2021 11:27a m As directed twice a day Dx E11.9 Gabapentin Disconti nued 800 MG PO .COMPLEX 180 [facility] r 2020 9:45am March 21, 2022 10:17a [...] 29, 2018 12:00am Octobe r 2017 9:00pm Ye,Darrin fong BKashLactis (Probiotic) 1 EACH Capsule Disconti nued 1 CAP PO Daily January 29, 2018 12:00am March 22, 2018 2:37pm Metformin Hcl Disconti nued 500 MG PO Twice Daily January 29, 2018 12:00am Octobe r 2017 7:06am Multivit Adult 50+ Disconti nued 1 TAB PO Daily January 29, 2018 12:00am March 22, 2018 2:37pm [facility] [place]/Dha/E pa/Fish Oil (Fish Oil [facility] [place] Ec 1,200 Mg) 1 EACH Capsule.Dr Maonti nued 1 EACH PO Daily January 29, 2018 12:00am Octobe r 2017 8:57pm Omeprazole Disconti nued 20 MG PO Daily January 29, 2018 12:00am ua 2020 7:18am Potassium Gluconate Disconti nued 500 [...] March 26, 2018 12:00April 07, 2018 6:40pm Albuterol Sulfate (Ventolin Hfa) [...] MG PO Daily August 23, 2018 12:00am Novuar y 2018 5:07am Metformin Hcl Disconti nued [...] 2022 12:00am June 05, 2022 12:13p m [facility] [place] Fatty Acids ([facility] [place]) 1,000 MG capsule Disconti nued 1000 MG [...] UAL As Directed May 08, 2023 12:00am Krill/[facility] [place] /Dha/Epa/Lipi ds ([facility] [place] Krill Oil 500 Mg Sfgl) 1 EACH [...] Disconti nued 500 MG [facility] Q24H [facility] 12:00am Oct[facility] r 2019 10:01a m Tramadol Hcl Disconti nued 50 MG PO Q8H [facility] 12:00am Octobe r 2019 12:02a m Doxycycline Hyclate Disconti nued 100 MG PO Twice Daily June 04, 2021 4:01pm [facility] er 2020 7:05am Azithromycin Disconti nued 0 [...] nued MG PO September 06, 2020 12:00am [facility] er 2019 9:43am Insulin Degludec (Tresiba [...] Februa ry 2020 10:07a m Hydrocodone/A cetaminophen ([place] 5-325 Tablet) 5-325 mg tablet Disconti nued 1 TAB PO Twice Daily 60 30 r 2019 y 2020 1:02am Docusate Sodium Disconti nued 100 MG PO Twice Daily November 19, 2020 1:00am February 28, 2021 11:13a m Hydrocodone/A cetaminophen ([place] 5-325 Tablet) 5-325 mg tablet Disconti nued [...] r 2020 1:00am May 08, 2023 4:25pm [facility] [place] Fatty Acids (Fish Oil Concentrate) 1,000 mg capsule Disconti nued 1000 MG PO Twice Daily 60 Novembe r 2020 1:00am May 03, 2022 11:24a m Immunizations Immunization Event Date Not Given Reason Dose Number [employer] Lot Number Vaccine Information Statement (VIS) Detail SARS-COV-2 (COVID-19) MODERNA July 07, 2021 [id number] Fluzone QUAD August 16, 2017 Fluzone QUAD August 17, 2018 Influenza, high-dose, Quadrivalent October 18, 2020 [id number] Influenza, high-dose, Quadrivalent October 04, 2021 [id number] Pneumococcal 13-Valent Conjugate Vaccine September 08, 2018 [...] May 13, 2023 6:43am 5.9 10^3/uL 4.1-10.2 [facility] [id number] [address] [facility] [address] Red Blood Count May 13, 2023 6:43am 4.40 10^6/uL 3.80-5.20 [facility] [id number] 214 [facility] [place] [address] Hemoglobin May 13, 2023 6:43am 12.7 g/dL 11.5-15.5 [facility] [id number] [address] [facility] [place] [address] Hematocrit May 13, 2023 6:43am 37.8 % 35-46 [facility] [id number] [address] [facility] [place] [address] Mean Corpuscular Volume May 13, 2023 6:43am 85.9 fL 82.0-98.0 [facility] [id number] 214 [facility] [place] [address] Mean Corpuscular Hemoglobin May 13, 2023 6:43am 28.9 pg 27.0-34.0 [facility] [id number] [address] [facility] [place] [address] Mean Corpuscular Hemoglobin Concent May 13, 2023 6:43am 33.6 g/dL 31.0-36.0 [facility] [id number] [address] [facility] [place] [address] RDW Standard Deviation May 13, 2023 6:43am 46.1 fL 37-49 [facility] [id number] [address] [facility] [place] [address] RDW Coefficient of Variation May 13, 2023 6:43am 14.5 % 11.8-14.8 [facility] [id number] [address] [facility] [place] [address] Platelet Count May 13, 2023 6:43am 232 10^3/uL 150-360 [facility] [id number] [address] [facility] [place] [address] Mean Platelet Volume May 13, 2023 6:43am 10.3 fL 9.4-12.3 [facility] [id number] [address] [facility] [place] [address] Neutrophils (%) (Auto) May 13, 2023 6:43am 53.8 % 42-75 [facility] [id number] [address] [place] [address] Lymphocytes (%) (Auto) May 13, 2023 6:43am 34.0 % 14-42 [facility] [id number] [address] [place] [address] Monocytes (%) (Auto) May 13, 2023 6:43am 8.6 % 4-13 [facility] [id number] [address] [place] [address] Eosinophils (%) (Auto) May 13, 2023 6:43am 2.0 % 0-6 [facility] [id number] [address] [place] [address] Basophils (%) (Auto) May 13, 2023 6:43am 0.8 % 0-2 [place] [id number] 214 [place] [address] Immature Granulocytes % May 13, 2023 6:43am 0.8 % 0.0-0.7 [facility] [id number] 214 [place] [address] Neutrophils # (Auto) May 13, 2023 6:43am 3.2 10^3uL 1.8-6.6 [place] [id number] 214 [place] [address] Lymphocytes # (Auto) May 13, 2023 6:43am 2.0 10^3/uL 1.0-3.1 [place] [id number] 214 [facility] [place] [address] Monocytes # (Auto) May 13, 2023 6:43am 0.5 10^3uL 0.0-1.0 [id number] [place] [address] Eosinophils # (Auto) May 13, 2023 6:43am 0.1 10^3uL 0.0-0.5 [place] [id number] [address] [place] [address] Basophils # (Auto) May 13, 2023 6:43am 0.1 10^3/uL 0.0-0.1 [facility] [id number] 214 [facility] [place] [address] Erythrocyte Sedimentatio n Rate May 08, 2023 3:36pm 19 mm/hr 0-30 [facility] [id number] 214 [facility] [place] [address] Prothrombin Time May 08, 2023 4:04pm 18.4 SEC 9.8-12.7 [facility] [id number] 214 [facility] [place] [address] INR Internationa l Normalized Ratio May 08, 2023 4:04pm 1.64 [facility] [id number] [address] [place] [address] Activated Partial Thromboplast Time May 08, 2023 4:04pm 63.0 SEC 25-36 [facility] [id number] [address] [place] [address] Urine Color May 08, 2023 4:44pm Yellow Yellow [facility] [id number] 214 [facility] [place] [address] Urine Clarity May 08, 2023 4:44pm Clear Clear [facility] [id number] [address] [place] [place] [address] Urine pH May 08, 2023 4:44pm 7.0 6.0-8.0 [facility] [id number] 214 [facility] [place] [address] Urine Specific Fowler May 08, 2023 4:44pm 1.018 1.000-1.03 0 [facility] [id number] [address] [facility] [place] [address] Urine Protein May 08, 2023 4:44pm Trace Negative [facility] [id number] [address] [place] [address] Urine Glucose (UA) May 08, 2023 4:44pm Negative Negative [facility] [id number] [address] [place] [address] Urine Ketones May 08, 2023 4:44pm Negative Negative [facility] [id number] [address] [place] [address] Urine Occult Blood May 08, 2023 4:44pm Negative Negative [facility] [id number] [address] [place] [address] Urine Nitrate May 08, 2023 4:44pm Negative Negative [facility] [id number] [address] [place] [address] Urine Bilirubin May 08, 2023 4:44pm Negative Negative [facility] [id number] [address] [place] [address] Urine Urobilinogen May 08, 2023 4:44pm 0.2 0.2-1.0 [facility] [id number] [address] [place] [address] Urine Leukocyte Esterase May 08, 2023 4:44pm Negative Negative [facility] [id number] [address] [place] [address] Urine WBC May 08, 2023 4:44pm 0-2 /HPF 0-3 [facility] [id number] [address] [place] [address] Urine Culture Indicated May 08, 2023 4:44pm No Culture not indicated. [facility] [id number] [address] [place] [address] Urine Bacteria May 08, 2023 4:44pm Few /HPF NONE SEEN [facility] [id number] [address] [place] [address] Sodium Level May 13, 2023 6:43am 138 mmol/L 136-145 [facility] [id number] [address] [place] [address] Potassium Level May 13, 2023 6:43am 4.0 mmol/L 3.5-5.1 [facility] [id number] [address] [place] [address] Chloride Level May 13, 2023 6:43am 110 mmol/L 98-107 [facility] [id number] 214 [facility] [place] [address] Carbon Dioxide Level May 13, 2023 6:43am 26 mmol/L 21-32 [facility] [id number] 214 [facility] [place] [address] Anion Gap May 13, 2023 6:43am 2.0 MMOL/L 1.0-15.0 [facility] [id number] 214 [place] [address] Blood Urea Nitrogen May 13, 2023 6:43am 24 mg/dL 7-18 [facility] [id number] 214 [place] [address] Creatinine May 13, 2023 6:43am 1.01 mg/dL 0.55-1.02 [facility] [id number] 214 [place] [address] Estimated GFR (MDRD) May 13, 2023 6:43am 52 UNITS= mL/min/1.73m squared Unable to flag low results Results less than 60 may warrant further investigationPa tients race is not known. If the patient is , multiply the calculated GFR result provided by 1.21. GFR Estimate should not be used to alter drug dosages. [facility] [id number] [address] [facility] [place] [address] BUN/Creatini ne Ratio May 13, 2023 6:43am 23.8 10.0-20.00 [facility] [id number] 214 [facility] [place] [address] Glucose Level May 13, 2023 6:43am 162 mg/dL 70-99 [facility] [id number] [address] [place] [address] Bedside Glucose May 13, 2023 11:01am 252 MG/DL 70-99 Point of Care 214 [facility] [place] [address] Calculated Osmolality May 13, 2023 6:43am 284 275-295 [facility] [id number] [address] [place] [address] Calcium Level May 13, 2023 6:43am 9.2 mg/dL 8.5-10.1 [place] [id number] [address] [place] [address] [place] [address] Troponin I High Sensitivity May 08, 2023 4:04pm 11.1 ng/L 0.00-49.9 | | FEMALE: | MALE: || Low Risk (Negative) | < 50 ng/L | < 80 ng/L | | Intermediate Risk | 50 - 110 ng/L | 80 - 110 ng/L | | High Risk (Critical)| >= 111 ng/L | >= 111 ng/L | | | [id number] [place] [address] [place] [address] Magnesium Level May 13, 2023 6:43am 2.0 mg/dL 1.8-2.4 [id number] [place] [address] [place] [address] Aspartate Amino Transf (AST/SGOT) May 13, 2023 6:43am 43 U/L 15-37 [id number] [place] [address] [place] [address] Alanine Aminotransfe rase (ALT/SGPT) May 13, 2023 6:43am 50 U/L 13-56 [id number] [place] [address] [place] [address] Alkaline Phosphatase May 13, 2023 6:43am 101 U/L 45-117 [address] [place] [address] [place] [address] Total Bilirubin May 13, 2023 6:43am 0.41 mg/dL 0.20-1.00 [id number] [facility] [place] [address] Total Protein May 13, 2023 6:43am 7.1 g/dL 6.40-8.20 [facility] [id number] [address] [place] [place] [address] Albumin May 13, 2023 6:43am 3.0 g/dL 3.4-5.0 [facility] [id number] [address] [place] [address] Globulin May 13, 2023 6:43am 4.1 Ratio 1.3-4.9 [facility] [id number] [address] [place] [place] [address] Albumin/Glob ulin Ratio May 13, 2023 6:43am 0.7 Ratio 1.2-2.3 [facility] [id number] [address] [place] [place] [address] Lactic Acid Level May 08, 2023 8:35pm 1.5 mmol/L 0.40-2.00 [facility] [id number] [address] [place] [address] Lipase May 08, 2023 4:04pm 51 U/L 13-75 [facility] [id number] [address] [place] [address] B-Type Natriuretic Peptide May 08, 2023 4:04pm 234 PG/ML 0-100 [facility] [id number] [address] [place] [address] C-Reactive Protein May 08, 2023 4:04pm 6.53 mg/dL 0.00-0.30 [facility] [id number] [address] [place] [address] Vancomycin Level Peak May 11, 2023 9:03pm 32.5 ug/mL 20.0-40.0 [facility] [id number] [address] [place] [address] Vancomycin Level Trough May 11, 2023 5:50pm 10.1 ug/mL 10.0-20.0 [facility] [id number] [address] [place] [address] [place] [address] Procalcitoni n May 08, 2023 4:04pm 0.69 [...] risk of severe sepsis and/or septic shock. [facility] [id number] [address] [place] [address] [place] [address] MRSA Surveillance Screen May 10, 2023 10:26am Negative NEGATIVE [facility] [id number] [address] [place] [address] [place] [address] Clostridium difficile Toxin A Gene June 02, 2023 10:41am Negative NEGATIVE Results from the C. difficile rt-PCR Assay should be interpreted in conjunction with other laboratory and clinical data.Erroneous test results might occur from improper specimen collection, handling and storage procedures. [facility] [id number] [address] [place] [address] [place] [address] SARS-CoV-2 (PCR) May 08, 2023 4:23pm Negative Negative Negative results do not preclude OKFU-QpC-5dhvti tion and should not be used as [...] and not for any viruses or pathogens. [facility] [id number] 214 [facility] [place] [address] Soft Tissue MRSA (PCR) May 08, 2023 5:57pm Negative NEGATIVE [facility] [id number] [address] [facility] [place] [address] Soft Tissue S. aureus (PCR) May 08, 2023 5:57pm Negative NEGATIVE XPert MRSA/SA Soft Skin & Tissue Assay is included as part of Wound Culture.Further ID and Sensitivities to follow. [facility] [id number] 214 [facility] [place] [address] SARS-CoV-2 Antigen (Rapid) May 08, 2023 4:04pm [...] an EUA for use by authorized laboratories. [facility] [id number] [address] [facility] [place] [address] Microbiology Results Procedure Source Result Collection Date/Time Result Date/Time Result Comment Performing Site Blood Culture Blood Enterococcus faecalis May 08, 2023 4:04pm May 11, 2023 9:33am [facility] [id number] [address] [facility] [place] [address] Gram Stain Foot, Left May 08, 2023 5:57pm May 09, 2023 11:58am [facility] [id number] [address] [facility] [place] [address] Wound Culture Foot, Left Enterococ faecalis - (Group D) May 08, 2023 5:57pm May 10, 2023 8:00am [facility] [id number] [address] [facility] [place] [address] Diagnostic Imaging Reports Report Dictated Date/Time Dictated By Status Magnetic Resonance Imaging Report May 08, 2023 4:42pm Maynor Le MD completed [address], [facility] Signed Patient: Grazyna Dale : [...] Signed By: Maynor Le MD Signed Date/Time:05/08/231644 Receiver: [email or web address] Dictated Date: 05/08/231641 Transcribed Date/Time:05/08/231641 CC: Moise Reed DO; Tae Aldana MD ; Report Dictated Date/Time Dictated By Status Magnetic Resonance Imaging Report May 08, 2023 6:45pm Maynor Le MD completed [address], [facility] Signed Patient: Grazyna Dale : [...] Signed By: Maynor Le MD Signed Date/Time:05/08/231908 Receiver: [email or web address] Dictated Date: 05/08/231844 Transcribed Date/Time:05/08/231844 CC: Moise Reed DO; YAO Avitia ; Report Dictated Date/Time Dictated By Status Magnetic Resonance Imaging Report May 11, 2023 8:05am Luis Morel DO completed [address], [address] Diagnostic Imaging Signed Patient: Grazyna Dale : [...] Signed By: Luis Morel DO Signed Date/Time:05/11/23932 Receiver: WHENRY Dictated Date: 05/11/23804 Transcribed Date/Time:05/11/23823 CC: Moise Reed DO; Tae Aldana MD ; Report Dictated Date/Time Dictated By Status Magnetic Resonance Imaging Report May 11, 2023 8:06am Luis Morel DO completed [place] [address] Diagnostic Imaging Signed Patient: Grazyna Dale : [...] Signed By: Luis Morel DO Signed Date/Time:05/11/23933 Receiver: WHENRY Dictated Date: 05/11/23805 Transcribed Date/Time:05/11/23830 CC: Moise Reed DO; Tae Aldana MD ; Report Dictated Date/Time Dictated By Status Magnetic Resonance Imaging Report May 11, 2023 8:09am Luis Morel DO completed [address], [address] Diagnostic Imaging Signed Patient: Grazyna Dale : [...] Signed By: Luis Morel DO Signed Date/Time:05/11/23933 Receiver: WHENRY Dictated Date: 05/11/23 0809 Transcribed Date/Time:05/11/23831 CC: Moise Reed DO; Tae [...] 9:04am Insurance Providers Guarantor Grazyna Dale Address [address] [place] [address] Contact Info. Home Phone: Payer Policy Id Coverage Id Subscriber's Name Subscriber Id Effective Date Expiration Date [employer] Medicare [facility] [id number] Grazyna Dale [id number] [facility] [id number] Grazyna Dale [id number] Self Pay Self N/A Encounters Encounter Location(s) Arrival/Admit Date Discharge/Depart Date Provider(s) Discharged Recurring [facility]-Diabetic Education April 28, 2023 9:25am April 28, 2023 11:59pm Moise Reed DO Discharged Inpatient [facility]-Acute Care May 10, 2023 8:38am May 13, 2023 12:13pm Enrique Sousa MD Departed Referred [facility]-Lab Drop Off June 02, 2023 10:36am June 02, 2023 10:37am TACO Santos Recent Diagnosis Onset Date Bacteremia Cellulitis [...] Provider Address Moise Reed Work Phone: [address] [facility] [address] Future Procedures Procedure Name Ordered Date Scheduled [...]
--- OUTSIDE RECORDS SUMMARY | 2023-10-17 00:47 | External Medical Summary | Continuity of Care Document ---
Author Name Unknown Address [address] [place] [address] Phone Organization [facility] Address [address] [facility] [place] [address] Phone Support Name Relationship Address Phone Kandi Swanson Daughter [address] [place] [address] Moise Reed Primary Care Provider [address] [place] [address] Tae Aldana Emergency Provider 214 [facility] [place] [address] Enrique Sousa Admit Provider 214 [facility] [place] [address] Riki Santos Attending Provider 214 [facility] [place] [address] Chief Complaint and Reason for Visit Chief [...] PO Every Night May 07, 2020 9:59am [facility] er 2019 3:49pm Glimepiride Disconti nued 4 MG PO Every Morning May 17, 2020 10:43am [facility] r 2019 11:39a m administer with breakfast Lancets Disconti nued 0 [facility] [place] 2019 12:00am May 23, 2021 7:48am As directed twice a day Dx E11.9 Blood Sugar Diagnostic (Onetouch Ultra Blue Test Strip) strip Disconti nued 0 .ROUTE .MEDSUPPLY 100 [facility] 2019 12:00am May 23, 2021 7:48am As directed twice a day Dx E11.9 Metoprolol Tartrate (Lopressor) 25 mg tablet Disconti nued 25 MG PO Twice Daily 60 [facility] 2019 11:58am January 22, 2021 9:46am Apixaban (Eliquis) 5 mg tablet Disconti nued 5 MG PO Twice Daily 60 [facility] [place] 2019 2:53pm 2020 4:43pm Insulin Degludec (Tresiba Flextouch U-100) 100 unit/mL (3 mL) insulin pen Disconti nued 25 UNIT SUBCUT daily September 13, 2020 9:44am [facility] er 2019 10:06a m continue increasing [...] UNIT SUBCUT daily 15 r 2019 10:06am [facility] er 2019 1:41pm 38 units daily [...] MG PO daily April 17, 2021 1:18pm [facility] er 2020 9:59am Atorvastatin Calcium (Lipitor) 40 mg tablet Active 40 MG PO Every Night April 30, 2021 8:59am Lancets Disconti nued 0 .ROUTE .MEDSUPPLY 100 May 23, 2021 7:48am [facility] er 2020 10:44a m As directed twice a day Dx E11.9 Blood Sugar Diagnostic (Precision Q-I-D) strip Disconti nued 0 .ROUTE .MEDSUPPLY 100 May 23, 2021 7:48am May 08, 2023 4:28pm As directed twice a day Dx E11.9 Insulin Degludec (Tresiba Flextouch U-200) 200 unit/mL (3 mL) insulin pen Disconti nued 38 UNIT SUBCUT Every Night June 07, 2021 10:04am [facility] er 2020 7:22am Levothyroxine Sodium Active 75 MCG PO daily 90 June 18, 2021 12:04pm Gabapentin Disconti nued 800 MG PO .COMPLEX 60 July 01, 2021 1:17pm [facility] er 2020 10:54a m 800 mg [...] Lancets Disconti nued 0 .ROUTE .MEDSUPPLY 100 [facility] r 2020 10:44am Dece[facility] er 2020 1:43pm As directed twice a day Dx E11.9 Gabapentin Disconti nued 800 MG PO .COMPLEX 180 [facility] r 2020 10:49am Dece er 2020 1:43pm 800 mg PO take one tablet at lunchtime and one tablet at bedtime; Gabapentin Disconti nued 800 MG PO .COMPLEX 180 [facility] r 2020 1:43pm Decemb er 2020 9:46am 800 mg PO take one tablet at lunchtime and one tablet at bedtime; Lancets Disconti nued 0 .ROUTE .MEDSUPPLY 100 [facility] r 2020 1:43pm [facility] er 2021 11:27a m As directed twice a day Dx E11.9 Gabapentin Disconti nued 800 MG PO .COMPLEX 180 [facility] r 2020 9:45am March 21, 2022 [...] 29, 2018 12:00am March 22, 2018 2:37pm Amberson-3/Dha/E pa/Fish Oil (Fish Oil Amberson-3 Ec 1,200 Mg) [address] Maonti [...] 2022 12:00am June 05, 2022 12:13p m Amberson-3 Fatty Acids (Amberson-3) 1,000 MG capsule Disconti nued 1000 MG [...] UAL As Directed May 08, 2023 12:00am Krill/Amberson-3 /Dha/Epa/Lipi ds (Amberson-3 Krill Oil 500 Mg Sfgl) 1 EACH [...] Disconti nued 500 [facility]H [facility] 2019 10:01a m Tramadol Hcl Disconti nued 50 MG PO Q8H [facility] 12:00am Oct[facility] r 2019 12:02a m Doxycycline Hyclate Disconti nued 100 MG PO Twice Daily June 04, 2021 4:01pm [facility] er 2020 7:05am Azithromycin Disconti nued [...] nued MG PO September 06, 2020 12:00am [facility] er 2019 9:43am Insulin Degludec (Tresiba [...] Februa ry 2020 10:07a m Hydrocodone/A cetaminophen ([place] 5-325 Tablet) 5-325 mg tablet Disconti nued 1 TAB PO Twice Daily 60 30 r 2019 y 2020 1:02am Docusate Sodium Disconti nued 100 MG PO Twice Daily November 19, 2020 1:00am February 28, 2021 11:13a m Hydrocodone/A cetaminophen ([place] 5-325 Tablet) 5-325 mg tablet Disconti nued [...] r 2020 1:00am May 08, 2023 4:25pm Amberson-3 Fatty Acids (Fish Oil Concentrate) 1,000 mg capsule Disconti nued 1000 MG PO Twice Daily 60 Novembe r 2020 1:00am May 03, 2022 11:24a m Immunizations Immunization Event Date Not Given Reason Dose Number 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 Lot Number Vaccine Information Statement (VIS) Detail SARS-COV-2 (COVID-19) MODERNA July 07, 2021 [id number] Fluzone QUAD August 16, 2017 Fluzone QUAD August 17, 2018 Influenza, high-dose, Quadrivalent October 18, 2020 [id number] Influenza, high-dose, Quadrivalent October 04, 2021 [id number] Pneumococcal 13-Valent Conjugate Vaccine September 08, 2018 [...] May 13, 2023 6:43am 5.9 10^3/uL 4.1-10.2 [facility] [id number] 214 [facility] [address] Red Blood Count May 13, 2023 6:43am 4.40 10^6/uL 3.80-5.20 [facility] [id number] 214 [facility] [place] [address] Hemoglobin May 13, 2023 6:43am 12.7 g/dL 11.5-15.5 [facility] [id number] 214 [facility] [place] [address] Hematocrit May 13, 2023 6:43am 37.8 % 35-46 [facility] [id number] 214 [facility] [place] [address] Mean Corpuscular Volume May 13, 2023 6:43am 85.9 fL 82.0-98.0 [facility] [id number] 214 [facility] [place] [address] Mean Corpuscular Hemoglobin May 13, 2023 6:43am 28.9 pg 27.0-34.0 [facility] [id number] 214 [facility] [place] [address] Mean Corpuscular Hemoglobin Concent May 13, 2023 6:43am 33.6 g/dL 31.0-36.0 [facility] [id number] 214 [facility] [place] [address] RDW Standard Deviation May 13, 2023 6:43am 46.1 fL 37-49 [facility] [id number] 214 [facility] [place] [address] RDW Coefficient of Variation May 13, 2023 6:43am 14.5 % 11.8-14.8 [facility] [id number] 214 [facility] [place] [address] Platelet Count May 13, 2023 6:43am 232 10^3/uL 150-360 [facility] [id number] 214 [facility] [place] [address] Mean Platelet Volume May 13, 2023 6:43am 10.3 fL 9.4-12.3 [facility] [id number] 214 [facility] [place] [address] Neutrophils (%) (Auto) May 13, 2023 6:43am 53.8 % 42-75 [facility] [id number] [address] [place] [address] Lymphocytes (%) (Auto) May 13, 2023 6:43am 34.0 % 14-42 [facility] [id number] [address] [place] [address] Monocytes (%) (Auto) May 13, 2023 6:43am 8.6 % 4-13 [facility] [id number] [facility] [place] [address] Eosinophils (%) (Auto) May 13, 2023 6:43am 2.0 % 0-6 [facility] [id number] [address] [facility] [place] [address] Basophils (%) (Auto) May 13, 2023 6:43am 0.8 % 0-2 [place] [id number] [address] [facility] [place] [address] Immature Granulocytes % May 13, 2023 6:43am 0.8 % 0.0-0.7 [facility] [id number] [address] [facility] [place] [address] Neutrophils # (Auto) May 13, 2023 6:43am 3.2 10^3uL 1.8-6.6 [place] [id number] [address] [facility] [place] [address] Lymphocytes # (Auto) May 13, 2023 6:43am 2.0 10^3/uL 1.0-3.1 [place] [id number] 214 [facility] [place] [address] Monocytes # (Auto) May 13, 2023 6:43am 0.5 10^3uL 0.0-1.0 [id number] 214 [facility] [place] [address] Eosinophils # (Auto) May 13, 2023 6:43am 0.1 10^3uL 0.0-0.5 [place] [id number] [address] [place] [address] Basophils # (Auto) May 13, 2023 6:43am 0.1 10^3/uL 0.0-0.1 [facility] [id number] 214 [facility] [place] [address] Erythrocyte Sedimentatio n Rate May 08, 2023 3:36pm 19 mm/hr 0-30 [facility] [id number] 214 [facility] [place] [address] Prothrombin Time May 08, 2023 4:04pm 18.4 SEC 9.8-12.7 [facility] [id number] 214 [facility] [place] [address] INR Internationa l Normalized Ratio May 08, 2023 4:04pm 1.64 [facility] [id number] 214 [facility] [place] [address] Activated Partial Thromboplast Time May 08, 2023 4:04pm 63.0 SEC 25-36 [facility] [id number] 214 [facility] [place] [address] Urine Color May 08, 2023 4:44pm Yellow Yellow [facility] [id number] 214 [facility] [place] [address] Urine Clarity May 08, 2023 4:44pm Clear Clear [facility] [id number] 214 [facility] [place] [address] Urine pH May 08, 2023 4:44pm 7.0 6.0-8.0 [facility] [id number] 214 [facility] [place] [address] Urine Specific [place] May 08, 2023 4:44pm 1.018 1.000-1.03 0 [facility] [id number] 214 [facility] [place] [address] Urine Protein May 08, 2023 4:44pm Trace Negative [facility] [id number] [address] [facility] [place] [address] Urine Glucose (UA) May 08, 2023 4:44pm Negative Negative [facility] [id number] [address] [place] [address] Urine Ketones May 08, 2023 4:44pm Negative Negative [facility] [id number] [address] [place] [address] Urine Occult Blood May 08, 2023 4:44pm Negative Negative [facility] [id number] [address] [place] [address] Urine Nitrate May 08, 2023 4:44pm Negative Negative [facility] [id number] [address] [place] [address] Urine Bilirubin May 08, 2023 4:44pm Negative Negative [facility] [id number] [address] [place] [address] Urine Urobilinogen May 08, 2023 4:44pm 0.2 0.2-1.0 [facility] [id number] [address] [place] [address] Urine Leukocyte Esterase May 08, 2023 4:44pm Negative Negative [facility] [id number] [address] [place] [address] Urine WBC May 08, 2023 4:44pm 0-2 /HPF 0-3 [facility] [id number] [address] [place] [address] Urine Culture Indicated May 08, 2023 4:44pm No Culture not indicated. [facility] [id number] [address] [place] [address] Urine Bacteria May 08, 2023 4:44pm Few /HPF NONE SEEN [facility] [id number] [address] [place] [address] Sodium Level May 13, 2023 6:43am 138 mmol/L 136-145 [facility] [id number] [address] [place] [address] Potassium Level May 13, 2023 6:43am 4.0 mmol/L 3.5-5.1 [facility] [id number] [address] [place] [address] Chloride Level May 13, 2023 6:43am 110 mmol/L 98-107 [facility] [id number] 214 [facility] [place] [address] Carbon Dioxide Level May 13, 2023 6:43am 26 mmol/L 21-32 [facility] [id number] 214 [facility] [place] [address] Anion Gap May 13, 2023 6:43am 2.0 MMOL/L 1.0-15.0 [facility] [id number] 214 [facility] [place] [address] Blood Urea Nitrogen May 13, 2023 6:43am 24 mg/dL 7-18 [facility] [id number] 214 [facility] [place] [address] Creatinine May 13, 2023 6:43am 1.01 mg/dL 0.55-1.02 [facility] [id number] 214 [facility] [place] [address] Estimated GFR (MDRD) May 13, 2023 6:43am 52 UNITS= mL/min/1.73m squared Unable to flag low results Results less than 60 may warrant further investigationPa tients race is not known. If the patient is , multiply the calculated GFR result provided by 1.21. GFR Estimate should not be used to alter drug dosages. [facility] [id number] 214 [facility] [place] [address] BUN/Creatini ne Ratio May 13, 2023 6:43am 23.8 10.0-20.00 [facility] [id number] 214 [facility] [place] [address] Glucose Level May 13, 2023 6:43am 162 mg/dL 70-99 [facility] [id number] 214 [facility] [place] [address] Bedside Glucose May 13, 2023 11:01am 252 MG/DL 70-99 Point of Care 214 [facility] [place] [address] Calculated Osmolality May 13, 2023 6:43am 284 275-295 [facility] [id number] 214 [facility] [place] [address] Calcium Level May 13, 2023 6:43am 9.2 mg/dL 8.5-10.1 [place] [id number] [address] [place] [address] [place] [address] Troponin I High Sensitivity May 08, 2023 4:04pm 11.1 ng/L 0.00-49.9 | | FEMALE: | MALE: || Low Risk (Negative) | < 50 ng/L | < 80 ng/L | | Intermediate Risk | 50 - 110 ng/L | 80 - 110 ng/L | | High Risk (Critical)| >= 111 ng/L | >= 111 ng/L | | | [id number] [place] [address] [place] [address] Magnesium Level May 13, 2023 6:43am 2.0 mg/dL 1.8-2.4 [address] [place] [address] [place] [address] Aspartate Amino Transf (AST/SGOT) May 13, 2023 6:43am 43 U/L 15-37 [address] [place] [address] [place] [address] Alanine Aminotransfe rase (ALT/SGPT) May 13, 2023 6:43am 50 U/L 13-56 [address] [place] [address] [place] [address] Alkaline Phosphatase May 13, 2023 6:43am 101 U/L 45-117 [address] [place] [address] [place] [address] Total Bilirubin May 13, 2023 6:43am 0.41 mg/dL 0.20-1.00 [id number] [facility] [place] [address] Total Protein May 13, 2023 6:43am 7.1 g/dL 6.40-8.20 [facility] [id number] 214 [facility] [place] [address] Albumin May 13, 2023 6:43am 3.0 g/dL 3.4-5.0 [facility] [id number] 214 [facility] [place] [address] Globulin May 13, 2023 6:43am 4.1 Ratio 1.3-4.9 [facility] [id number] 214 [facility] [place] [address] Albumin/Glob ulin Ratio May 13, 2023 6:43am 0.7 Ratio 1.2-2.3 [facility] [id number] 214 [facility] [place] [address] Lactic Acid Level May 08, 2023 8:35pm 1.5 mmol/L 0.40-2.00 [facility] [id number] 214 [facility] [place] [address] Lipase May 08, 2023 4:04pm 51 U/L 13-75 [facility] [id number] 214 [facility] [place] [address] B-Type Natriuretic Peptide May 08, 2023 4:04pm 234 PG/ML 0-100 [facility] [id number] 214 [facility] [place] [address] C-Reactive Protein May 08, 2023 4:04pm 6.53 mg/dL 0.00-0.30 [facility] [id number] 214 [facility] [place] [address] Vancomycin Level Peak May 11, 2023 9:03pm 32.5 ug/mL 20.0-40.0 [facility] [id number] 214 [facility] [place] [address] Vancomycin Level Trough May 11, 2023 5:50pm 10.1 ug/mL 10.0-20.0 [facility] [id number] [address] [place] [address] [place] [address] Procalcitoni n May 08, 2023 4:04pm 0.69 [...] risk of severe sepsis and/or septic shock. [facility] [id number] [address] [place] [address] [place] [address] MRSA Surveillance Screen May 10, 2023 10:26am Negative NEGATIVE [facility] [id number] [address] [place] [address] [place] [address] Clostridium difficile Toxin A Gene June 02, 2023 10:41am Negative NEGATIVE Results from the C. difficile rt-PCR Assay should be interpreted in conjunction with other laboratory and clinical data.Erroneous test results might occur from improper specimen collection, handling and storage procedures. [facility] [id number] [address] [place] [address] [place] [address] SARS-CoV-2 (PCR) May 08, 2023 4:23pm Negative Negative Negative results do not preclude VLIC-ZcG-1hxtey tion and should not be used as [...] and not for any viruses or pathogens. [facility] [id number] 214 [facility] [place] [address] Soft Tissue MRSA (PCR) May 08, 2023 5:57pm Negative NEGATIVE [facility] [id number] 214 [facility] [place] [address] Soft Tissue S. aureus (PCR) May 08, 2023 5:57pm Negative NEGATIVE XPert MRSA/SA Soft Skin & Tissue Assay is included as part of Wound Culture.Further ID and Sensitivities to follow. [facility] [id number] 214 [facility] [place] [address] SARS-CoV-2 Antigen (Rapid) May 08, 2023 4:04pm [...] an EUA for use by authorized laboratories. [facility] [id number] [address] [facility] [place] [address] Microbiology Results Procedure Source Result Collection Date/Time Result Date/Time Result Comment Performing Site Blood Culture Blood Enterococcus faecalis May 08, 2023 4:04pm May 11, 2023 9:33am [facility] [id number] [address] [facility] [place] [address] Gram Stain Foot, Left May 08, 2023 5:57pm May 09, 2023 11:58am [facility] [id number] [address] [facility] [place] [address] Wound Culture Foot, Left Enterococ faecalis - (Group D) May 08, 2023 5:57pm May 10, 2023 8:00am [facility] [id number] [address] [facility] [place] [address] Diagnostic Imaging Reports Report Dictated Date/Time Dictated By Status Magnetic Resonance Imaging Report May 08, 2023 4:42pm Maynor Le MD completed [address], [facility] Diagnostic Imaging Signed Patient: Grazyna Dale [...] Signed By: Maynor Le MD Signed Date/Time:05/08/231644 Tenant Relations Coordinator: [email or web address] Dictated Date: 05/08/231641 Transcribed Date/Time:05/08/231641 CC: Moise Reed DO; Tae Aldana MD ; Report Dictated Date/Time Dictated By Status Magnetic Resonance Imaging Report May 08, 2023 6:45pm Maynor Le MD completed [address], [facility] Diagnostic Imaging Signed Patient: Grazyna Dale [...] Signed By: Maynor Le MD Signed Date/Time:05/08/231908 Tenant Relations Coordinator: [email or web address] Dictated Date: 05/08/231844 Transcribed Date/Time:05/08/231844 CC: Moise Reed DO; YAO Avitia ; Report Dictated Date/Time Dictated By Status Magnetic Resonance Imaging Report May 11, 2023 8:05am Luis Morel DO completed [address], [address] Diagnostic Imaging Signed Patient: Grazyna Dale : [...] Signed By: Luis Morel DO Signed Date/Time:05/11/23932 Tenant Relations Coordinator: WHENRY Dictated Date: 05/11/23804 Transcribed Date/Time:05/11/23823 CC: Moise Reed DO; Tae Aldana MD ; Report Dictated Date/Time Dictated By Status Magnetic Resonance Imaging Report May 11, 2023 8:06am Luis Morel DO completed [place] [address] Diagnostic Imaging Signed Patient: Grazyna Dale : [...] Signed By: Luis Morel DO Signed Date/Time:05/11/23933 Tenant Relations Coordinator: WHENRY Dictated Date: 05/11/23805 Transcribed Date/Time:05/11/23830 CC: Moise Reed DO; Tae Aldana MD ; Report Dictated Date/Time Dictated By Status Magnetic Resonance Imaging Report May 11, 2023 8:09am Luis Morel DO completed [address], [address] Diagnostic Imaging Signed Patient: Grazyna Dale : [...] Signed By: Luis Morel DO Signed Date/Time:05/11/23933 Tenant Relations Coordinator: WHENRY Dictated Date: 05/11/23 0809 Transcribed Date/Time:05/11/23831 [...] 9:04am Insurance Providers Guarantor Grazyna Dale Address [address] [place] [address] Contact Info. Home Phone: Payer Policy Id Coverage Id Subscriber's Name Subscriber Id Effective Date Expiration Date [employer] Medicare [facility] [id number] Grazyna Dale [id number] [facility] [id number] Grazyna Dale [id number] Self Pay Self N/A Encounters Encounter Location(s) Arrival/Admit Date Discharge/Depart Date Provider(s) Discharged Recurring [facility]-Diabetic Education April 28, 2023 9:25am April 28, 2023 11:59pm Moise Reed DO Discharged Inpatient [facility]-Acute Care May 10, 2023 8:38am May 13, 2023 12:13pm Enrique Sousa MD Departed Referred [facility]-Lab Drop Off June 02, 2023 10:36am [...] Address Moise Reed Work Phone: [address] [facility] [address] Future Procedures Procedure Name Ordered Date Scheduled [...]
--- OUTSIDE RECORDS SUMMARY | 2023-10-17 00:48 | External Medical Summary ---
Author Name Unknown Address Unknown Organization [facility] [address] [place] Laboratory Report Ordering Provider Test Date Status Lexi Shultz 05/20/2023 07:55:00 Final Observation Date Value Abnormality Reference (Units ) Status Glucose [Mass/volume] in Arterial blood 05/20/2023 07:55:52 152 Above high normal 50-99 (MG/DL) Final Meter: [id number]\R\Operat or: [id number] Taras Aguirre
The Reference Range listed is for fasting blood Glucose only. Performing Location [facility] [address] [place]
--- OUTSIDE RECORDS SUMMARY | 2023-10-17 00:48 | External Medical Summary ---
Author Name Unknown Address Unknown Organization [facility] [address] [place] [address] [place] [address] Laboratory Report Ordering Provider Test Date Status Lexi Shultz 05/20/2023 05:57:00 Final Observation Date Value Abnormality Reference (Units ) Status Neut% 05/20/2023 06:46:40 60.7 (%) Final Lymphocytes/100 leukocytes in Blood by Automated count 05/20/2023 06:46:40 28.9 (%) Final Monocytes/100 leukocytes in Blood by Automated count 05/20/2023 06:46:40 6.8 (%) Final Eosinophils/100 leukocytes in Blood by Automated count 05/20/2023 06:46:40 2.3 (%) Final Basophils/100 leukocytes in Blood by Automated count 05/20/2023 06:46:40 0.9 (%) Final Immature granulocytes/100 leukocytes in Blood by Automated count 05/20/2023 06:46:40 0.4 (%) Final Neutrophils [#/volume] in Blood by Automated count 05/20/2023 06:46:40 5.49 2.00-7.70 (K/UL) Final Lymphocytes [#/volume] in Blood by Automated count 05/20/2023 06:46:40 2.62 1.00-3.40 (K/UL) Final Monocytes [#/volume] in Blood 05/20/2023 06:46:40 0.62 0.00-1.00 (K/UL) Final Eosinophils [#/volume] in Blood by Automated count 05/20/2023 06:46:40 0.21 0.00-0.50 (K/UL) Final Basophils [#/volume] in Blood by Automated count 05/20/2023 06:46:40 0.08 0.00-0.10 (K/UL) Final Immature granulocytes [Presence] in Blood by Automated count 05/20/2023 06:46:40 0.04 0.00-0.40 (K/UL) Final Performing Location [facility] [address] [address]
--- OUTSIDE RECORDS SUMMARY | 2023-10-17 00:48 | External Medical Summary ---
Author Name Unknown Address Unknown Organization [facility] bsection:[facility] [address] [place] Laboratory Report Ordering Provider Test Date Status CarringtonAlex wickmery 05/19/2023 20:37:00 Final Observation Date Value Abnormality Reference (Units ) Status Glucose [Mass/volume] in Arterial blood 05/19/2023 20:37:40 162 Above high normal 50-99 (MG/DL) Final Meter: [id number]\R\Operat or: [id number] Korcarmelinarobst Stefano
The Reference Range listed is for fasting blood Glucose only. Performing Location [facility] [address] [id number]
--- OUTSIDE RECORDS SUMMARY | 2023-10-17 00:48 | External Medical Summary ---
Author Name Unknown Address Unknown Organization [facility] [address] [facility] [place] [address] Laboratory Report Ordering Provider Test Date Status Lexi Shultz 05/20/2023 05:57:00 Final Observation Date Value Abnormality Reference (Units ) Status Leukocytes [#/volume] in Blood by Automated count 05/20/2023 06:46:40 9.06 4.00-10.40 (K/UL) Final Erythrocytes [#/volume] in Blood by Automated count 05/20/2023 06:46:40 4.75 3.90-5.00 (M/UL) Final Hemoglobin [Mass/volume] in Blood 05/20/2023 06:46:40 13.5 11.7-15.0 (G/DL) Final Hematocrit [Volume Fraction] of Blood by Automated count 05/20/2023 06:46:40 41.8 35.0-44.0 (%) Final MCV [Entitic volume] by Automated count 05/20/2023 06:46:40 88.0 81.0-96.0 (fL) Final MCH [Entitic mass] by Automated count 05/20/2023 06:46:40 28.4 28.0-33.0 (pg) Final MCHC [Mass/volume] by Automated count 05/20/2023 06:46:40 32.3 32.0-36.0 (G/DL) Final Erythrocyte distribution width [Ratio] by Automated count 05/20/2023 06:46:40 14.6 Above high normal 11.5-14.2 (%) Final Erythrocyte distribution width [Entitic volume] by Automated count 05/20/2023 06:46:40 48 Final Platelets [#/volume] in Blood by Automated count 05/20/2023 06:46:40 302 150-350 (K/UL) Final Platelet mean volume [Entitic volume] in Blood by Automated count 05/20/2023 06:46:40 10.1 9.0-12.2 (fL) Final Nucleated erythrocytes/100 cells in Bone marrow by Manual count 05/20/2023 06:46:40 0 (/100 WBCS) Final Nucleated erythrocytes [#/volume] in Blood by Automated count 05/20/2023 06:46:40 0.00 (K/UL) Final Performing Location [facility] [address] [address]
--- OUTSIDE RECORDS SUMMARY | 2023-10-17 00:48 | External Medical Summary | Continuity of Care Document ---
Author Name Unknown Organization 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 Name Role Phone Moise Caal Primary Care Physician [phone] [id number] Date(s): 05/13/23 - 05/20/23 [facility] [address] [place] [address], [phone] [place] Encounter Diagnosis Recurrent bacterial infection(Discharge Diagnosis) - 05/15/23 Diarrheal stools(Discharge Diagnosis) - 05/16/23 Diabetes(Discharge Diagnosis) - 05/15/23 Afib(Discharge Diagnosis) - 05/15/23 History of Clostridium difficile infection(Discharge Diagnosis) - 05/18/23 Recurrent infections(Discharge Diagnosis) - 05/16/23 Wound of left foot(Discharge Diagnosis) - 05/14/23 Hardware complicating wound infection(Discharge Diagnosis) - 05/15/23 Cellulitis of left foot(Discharge Diagnosis) - 05/20/23 CKD (chronic kidney disease) stage 3, GFR 30-59 ml/min(Discharge Diagnosis) - 05/15/23 Hypothyroidism(Discharge Diagnosis) - 05/18/23 Type 2 diabetes mellitus with hyperglycemia, with long-term current use of insulin(Discharge Diagnosis) - 05/18/23 Bacteremia(Discharge Diagnosis) - 05/13/23 Nonhealing ulcer of left lower leg(Discharge Diagnosis) - 05/20/23 Infection and inflammatory reaction due to internal fixation device of other site, initial encounter(Final) - Cellulitis of left lower limb(Final) - Type 2 diabetes mellitus with foot ulcer(Final) - Chronic kidney disease, stage 3a(Final) - Hypothyroidism, unspecified(Final) - Hypertensive chronic kidney disease with stage 1 through stage 4 chronic kidney disease, or unspecified chronic kidney disease(Final) - Anemia in chronic kidney disease(Final) - Bacteremia(Final) - 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) - Type 2 diabetes mellitus with hyperglycemia(Final) - Non-pressure chronic ulcer of other part of left foot with unspecified severity (Final) - group home (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 insulin(Final) - Type 2 diabetes mellitus with diabetic neuropathy, unspecified(Final) - Paroxysmal atrial fibrillation(Final) - Iron deficiency anemia, unspecified(Final) - Enterococcus as the cause of diseases classified elsewhere(Final) - Gastro-esophageal reflux disease without esophagitis(Final) - Unspecified glaucoma(Final) - Other surgical procedures as the cause of abnormal reaction of the patient, or of later complication, without mention of misadventure at the time of the procedure(Final) - Diarrhea, unspecified(Final) - group home (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 a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(Final) - 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 (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 antithrombotics/antiplatelets(Final) - Discharge Disposition: Home w/ Home Health Care Attending Physician: MD Lexi, Carrington Quintero Admitting Physician: MD Yovanny, Gurvinder Cervantes Referring Physician: MD Merry, Enrique Anna Allergies, Adverse Reactions, Alerts Substance Reaction Severity Status meloxicam 1 reaction unknown Mild Proposed metFORMIN Diarrhea Active 1patient unsure of reaction%0A Functional Status 05/20/23 Speech Pattern Clear 05/20/23 History of Fall in Last 3 Months Mccord N o Presence of Secondary Diagnosis Mccord Ye s Use of Ambulatory Aid Mccord Crutches/can e/walker IV/Heparin Lock Fall Risk Mccord Yes Gait/Transferring Fall Risk Mccord Normal /bedrest/immobile Mental Status Fall Risk Mccord Oriented t o own ability Mccord Fall Risk Score 50 Mccord Fall Risk High risk 05/18/23 Neurological Symptoms None ADLs Minimal assistance Facial Symmetry Symmetric Gait Steady Swallowing Difficulty None Level of Consciousness Neuro Alert Hallucinations Present None Medications acetaminophen 650 mg oral tablet, extended [...] 90 each Start Date: 06/08/22 Status: Ordered calcium (as carbonate) 600 mg [...] cap, PO, Daily, Disp# 30 cap, Pharmacy: [facility] Start Date: 05/20/23 Stop Date: 06/19/23 Status: Ordered Lantus 5 unit, injection, subQ, 05/18/23 22:00:00 EDT, 05/18/23 22:00:00 EDT, Hold dose if BG < 150 or if NPO, 05/18/23 15:01:00 EDT Start Date: 05/18/23 Stop Date: 05/18/23 Status: Completed levothyroxine 75 mcg (0.075 mg) oral tablet Start: 05/15/23 15:04:00 EDT, 90 tab Start Date: 05/15/23 Status: Ordered metoprolol succinate (ER) 50 mg, XL tablet, PO, 05/20/23 9:00:00 EDT, 05/20/23 9:00:00 EDT, Extended Release product, 05/15/23 19:08:00 EDT Start Date: 05/20/23 Stop Date: 05/20/23 Status: Completed metoprolol succinate 50 mg oral tablet, extended release Start: 05/20/23 11:09:00 EDT, 1 tab, PO, Daily, Disp# 90 tab, Pharmacy: [facility] Start Date: 05/20/23 Stop Date: 08/18/23 Status: Ordered multivitamin Start: 06/08/22 11:41:00 EDT, 1 tab, PO, Daily Start Date: 06/08/22 Status: Ordered NovoLOG Sliding Scale Moderate Dose Range: 0-8 unit, injection, subQ, 05/19/23 7:30:00 EDT, 05/19/23 7:30:00 EDT, 05/13/23 21:25:00 EDT Start Date: 05/19/23 Stop Date: 05/19/23 Status: Completed NovoLOG Sliding Scale Moderate Dose Range: 0-8 unit, injection, subQ, 05/20/23 11:30:00 EDT, 05/20/23 11:30:00 EDT, 05/13/23 21:25:00 EDT Start Date: 05/20/23 Stop Date: 05/20/23 Status: Completed Ozempic (0.25 mg or 0.5 mg dose) [...] TID hold dose if meal ismissed, Pharmacy: [facility] Start Date: 05/20/23 Stop Date: 06/19/23 Status: [...] q12h, Disp# 50, stop date 06/17/2023, Pharmacy: [facility] Start Date: 05/20/23 Stop Date: 06/14/23 Status: Ordered Zosyn 4 g-0.5 g/100 mL intravenous solution Start: 05/20/23 11:11:00 EDT, 4.5 g =, IV, q8h, stop date 06/17/2023 Start Date: 05/20/23 Status: Ordered Mental Status 05/13/23 Primary Language Nepali Problem List Condition Confirmation Course Effective Dates Status H ealth Status Informant Arthritis Confirmed Active (atherosclerosis) Confirmed Active Afib Confirmed Active Diabetes Confirmed Active Glaucoma Confirmed Active Heartburn Confirmed Active Right hip pain Confirmed Active Hypertension Confirmed Active Hypothyroidism Confirmed Active Numbness Confirmed Active Pneumonia Confirmed Active Diagnosis Diagnosis Type Effective Dates Health Status Clinical Service Informant Bacteremia Discharge Diagnosis 05/13/23 Non-Specified Wound of left foot Discharge Diagnosis 05/14/23 Non-Specified Afib Discharge Diagnosis 05/15/23 Diabetes Discharge Diagnosis 05/15/23 Hardware complicating wound infection Discharge Diagnosis 05/15/23 CKD (chronic kidney disease) stage 3, GFR 30-59 ml/min Discharge Diagnosis 05/15/23 Recurrent bacterial infection Discharge Diagnosis 05/15/23 Recurrent infections Discharge Diagnosis 05/16/23 Diarrheal stools Discharge Diagnosis 05/16/23 History of Clostridium difficile infection Discharge Diagnosis 05/18/23 Type 2 diabetes mellitus with hyperglycemia, with long-term current use of insulin Discharge Diagnosis 05/18/23 Hypothyroidism Discharge Diagnosis 05/18/23 Nonhealing ulcer of left lower leg Discharge Diagnosis 05/20/23 Cellulitis of left foot Discharge Diagnosis 05/20/23 Procedures Procedure Date Related Diagnosis Body Site Status LLE Angiogram w/ lithotripsy and 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 05/20/23 Glucose (POCT). 05/20/23 Automated Differential. 05/20/23 CBC w/ Diff. 05/20/23 Comprehensive Metabolic Panel. (CMP.) 05/20/23 Glucose (POCT). 05/19/23 Automated Differential. 05/19/23 CBC w/ Diff. 05/19/23 Comprehensive Metabolic Panel. (CMP.) 05/19/23 Magnesium Level. 05/19/23 C-Reactive Protein. 05/18/23 Iron Level and TIBC. 05/18/23 Magnesium Level. 05/18/23 NT-Pro BNP. 05/18/23 Phosphorus Level. 05/18/23 Thyroid Stimulating Hormone. 05/18/23 Vitamin B12 Level. 05/18/23 Vitamin D 25 Hydroxy Level. 05/18/23 Basic Metabolic Panel. 05/16/23 CBC w/o Diff. 05/16/23 Hemoglobin A1c w/eAG. 05/16/23 Automated Differential. 05/13/23 Most recent to oldest [Reference Range]: 1 2 3 CReacProt [<=0.49 mg/dL] <0.30 mg/dL (05/18/23 4:34 PM) eGFR CKD-EPI [>=60 mL/min/1.73 m2] 43 mL/min/1.73 m2 *LOW* (05/20/23 5:57 AM) 43 mL/min/1.73 m2 *LOW* (05/19/23 6:14 AM) 54 mL/min/1.73 m2 *LOW* (05/16/23 5:50 AM) Blood Glucose [70-120 mg/dL] 244 mg/dL 1 *HI* (05/20/23 11:45 AM) 151 mg/dL 2 *HI* (05/19/23 9:25 AM) 214 mg/dL 3 *HI* (05/18/23 9:12 PM) Vitamin D, 25-Hydroxy 36 ng/mL *NA* (05/18/23 4:34 PM) Estimated CrCl 42.53 mL/min (05/20/23 7:19 AM) 42.88 mL/min (05/19/23 7:00 AM) 51.62 mL/min (05/16/23 6:34 AM) Glucose (POCT) [50-99 mg/dL] 244 mg/dL 4 *HI* (05/20/23 11:23 AM) 152 mg/dL 5 *HI* (05/20/23 7:55 AM) 162 mg/dL 6 *HI* (05/19/23 8:37 PM) RDW-CV [11.5-14.2 %] 14.6 % *HI* (05/20/23 5:57 AM) 14.6 % *HI* (05/19/23 6:14 AM) 14.6 % *HI* (05/16/23 5:50 AM) RDW-SD 48 *NA* (05/20/23 5:57 AM) 47 *NA* (05/19/23 6:14 AM) 47 *NA* (05/16/23 5:50 AM) Nuc RBC Relative Count 0 /100 WBCs *NA* (05/20/23 5:57 AM) 0 /100 WBCs *NA* (05/19/23 6:14 AM) 0 /100 WBCs *NA* (05/16/23 5:50 AM) Nuc RBC Abs Count 0.00 K/uL *NA* (05/20/23 5:57 AM) 0.00 K/uL *NA* (05/19/23 6:14 AM) 0.00 K/uL *NA* (05/16/23 5:50 AM) NT ProBNP [<=449 pg/mL] 119 pg/mL (05/18/23 4:34 PM) Vitamin B12 Level [211-946 pg/mL] >2000 pg/mL *HI* (05/18/23 4:34 PM) Phosphorus Level. [2.5-4.5 mg/dL] 3.5 mg/dL (05/18/23 4:34 PM) CO2 [22-29 mmol/L] 21 mmol/L *LOW* (05/20/23 5:57 AM) 23 mmol/L (05/19/23 6:14 AM) 21 mmol/L *LOW* (05/16/23 5:50 AM) MPV [9.0-12.2 fL] 10.1 fL (05/20/23 5:57 AM) 9.9 fL (05/19/23 6:14 AM) 9.7 fL (05/16/23 5:50 AM) Immature Gran% 0.4 % *NA* (05/20/23 5:57 AM) 0.6 % *NA* (05/19/23 6:14 AM) 0.7 % *NA* (05/13/23 8:22 PM) Neut% 60.7 % *NA* (05/20/23 5:57 AM) 54.4 % *NA* (05/19/23 6:14 AM) 54.7 % *NA* (05/13/23 8:22 PM) Lymph% 28.9 % *NA* (05/20/23 5:57 AM) 35.9 % *NA* (05/19/23 6:14 AM) 36.0 % *NA* (05/13/23 8:22 PM) [place]% 6.8 % *NA* (05/20/23 5:57 AM) 6.0 % *NA* (05/19/23 6:14 AM) 6.1 % *NA* (05/13/23 8:22 PM) Baso% 0.9 % *NA* (05/20/23 5:57 AM) 1.1 % *NA* (05/19/23 6:14 AM) 1.2 % *NA* (05/13/23 8:22 PM) Eos% 2.3 % *NA* (05/20/23 5:57 AM) 2.0 % *NA* (05/19/23 6:14 AM) 1.3 % *NA* (05/13/23 8:22 PM) Immat Gran, Abs [0.00-0.40 K/uL] 0.04 K/uL (05/20/23 5:57 AM) 0.05 K/uL (05/19/23 6:14 AM) 0.05 K/uL (05/13/23 8:22 PM) Neut, Abs [2.00-7.70 K/uL] 5.49 K/uL (05/20/23 5:57 AM) 4.88 K/uL (05/19/23 6:14 AM) 3.73 K/uL (05/13/23 8:22 PM) Lymph, Abs [1.00-3.40 K/uL] 2.62 K/uL (05/20/23 5:57 AM) 3.22 K/uL (05/19/23 6:14 AM) 2.46 K/uL (05/13/23 8:22 PM) [place], Abs [0.00-1.00 K/uL] 0.62 K/uL (05/20/23 5:57 AM) 0.54 K/uL (05/19/23 6:14 AM) 0.42 K/uL (05/13/23 8:22 PM) Baso, Abs [0.00-0.10 K/uL] 0.08 K/uL (05/20/23 5:57 AM) 0.10 K/uL (05/19/23 6:14 AM) 0.08 K/uL (05/13/23 8:22 PM) Eos, Abs [0.00-0.50 K/uL] 0.21 K/uL (05/20/23 5:57 AM) 0.18 K/uL (05/19/23 6:14 AM) 0.09 K/uL (05/13/23 8:22 PM) Est Avg Glucose [<=125.0 mg/dL] 180.0 mg/dL *HI* (05/16/23 5:50 AM) Anion Gap [5-14 mmol/L] 16 mmol/L *HI* (05/20/23 5:57 AM) 14 mmol/L (05/19/23 6:14 AM) 15 mmol/L *HI* (05/16/23 5:50 AM) Alb [3.5-5.2 g/dL] 3.7 g/dL (05/20/23 5:57 AM) 4.0 g/dL (05/19/23 6:14 AM) Alk Phos [35-115 unit/L] 109 unit/L (05/20/23 5:57 AM) 116 unit/L *HI* (05/19/23 6:14 AM) ALT [0-33 unit/L] 26 unit/L (05/20/23 5:57 AM) 30 unit/L (05/19/23 6:14 AM) AST [0-32 unit/L] 28 unit/L (05/20/23 5:57 AM) 29 unit/L (05/19/23 6:14 AM) BUN [6-23 mg/dL] 18 mg/dL (05/20/23 5:57 AM) 18 mg/dL (05/19/23 6:14 AM) 15 mg/dL (05/16/23 5:50 AM) Ca [8.4-10.2 mg/dL] 9.8 mg/dL (05/20/23 5:57 AM) 10.0 mg/dL (05/19/23 6:14 AM) 9.0 mg/dL (05/16/23 5:50 AM) Cl- [98-107 mmol/L] 107 mmol/L (05/20/23 5:57 AM) 106 mmol/L (05/19/23 6:14 AM) 106 mmol/L (05/16/23 5:50 AM) Cret [0.60-1.00 mg/dL] 1.25 mg/dL *HI* (05/20/23 5:57 AM) 1.24 mg/dL *HI* (05/19/23 6:14 AM) 1.03 mg/dL *HI* (05/16/23 5:50 AM) Iron [33-151 mcg/dL] 71 mcg/dL (05/18/23 4:34 PM) HbA1c [4.0-6.4 %] 7.9 % *HI* (05/16/23 5:50 AM) Glu [74-109 mg/dL] 138 mg/dL *HI* (05/20/23 5:57 AM) 139 mg/dL *HI* (05/19/23 6:14 AM) 143 mg/dL *HI* (05/16/23 5:50 AM) Hct [35.0-44.0 %] 41.8 % (05/20/23 5:57 AM) 44.4 % *HI* (05/19/23 6:14 AM) 39.3 % (05/16/23 5:50 AM) Hgb [11.7-15.0 g/dL] 13.5 g/dL (05/20/23 5:57 AM) 14.2 g/dL (05/19/23 6:14 AM) 12.4 g/dL (05/16/23 5:50 AM) K [3.5-5.1 mmol/L] 4.3 mmol/L (05/20/23 5:57 AM) 4.2 mmol/L (05/19/23 6:14 AM) 4.1 mmol/L (05/16/23 5:50 AM) MCH [28.0-33.0 pg] 28.4 pg (05/20/23 5:57 AM) 27.8 pg *LOW* (05/19/23 6:14 AM) 27.7 pg *LOW* (05/16/23 5:50 AM) MCHC [32.0-36.0 g/dL] 32.3 g/dL (05/20/23 5:57 AM) 32.0 g/dL (05/19/23 6:14 AM) 31.6 g/dL *LOW* (05/16/23 5:50 AM) MCV [81.0-96.0 fL] 88.0 fL (05/20/23 5:57 AM) 86.9 fL (05/19/23 6:14 AM) 87.7 fL (05/16/23 5:50 AM) Mg [1.6-2.6 mg/dL] 1.8 mg/dL (05/19/23 6:14 AM) 1.9 mg/dL (05/18/23 4:34 PM) Na [136-145 mmol/L] 144 mmol/L (05/20/23 5:57 AM) 143 mmol/L (05/19/23 6:14 AM) 142 mmol/L (05/16/23 5:50 AM) Plts [150-350 K/uL] 302 K/uL (05/20/23 5:57 AM) 363 K/uL *HI* (05/19/23 6:14 AM) 273 K/uL (05/16/23 5:50 AM) RBC [3.90-5.00 M/uL] 4.75 M/uL (05/20/23 5:57 AM) 5.11 M/uL *HI* (05/19/23 6:14 AM) 4.48 M/uL (05/16/23 5:50 AM) Fe Sat [15-55 %] 18 % (05/18/23 4:34 PM) T Bili [0.0-1.2 mg/dL] 0.7 mg/dL (05/20/23 5:57 AM) 0.7 mg/dL (05/19/23 6:14 AM) Total IBC [236-425 ug/dL] 393 ug/dL (05/18/23 4:34 PM) Prot [6.4-8.3 g/dL] 7.1 g/dL (05/20/23 5:57 AM) 7.8 g/dL (05/19/23 6:14 AM) Transferrin [200.0-360.0 mg/dL] 333.0 mg/dL (05/18/23 4:34 PM) TSH [0.30-4.20 uIU/mL] 2.50 uIU/mL (05/18/23 4:34 PM) WBC [4.00-10.40 K/uL] 9.06 K/uL (05/20/23 5:57 AM) 8.97 K/uL (05/19/23 6:14 AM) 6.82 K/uL (05/16/23 5:50 AM) 1Result Comment: Performed at: [facility], [facility] [address] [place] [id number] 2Result Comment: Performed at: [facility], [address] [place] [id number] 3Result Comment: Performed at: [facility], [facility] [address] [place] [id number] 4Result Comment: Notified RN~Meter: [phone]~Oxygen Therapy Technician: [id number] Adelita Reyes 5Result Comment: Meter: [phone]~Oxygen Therapy Technician: [id number] Taras Aguirre 6Result Comment: Meter: [phone]~Oxygen Therapy Technician: [id number] Jin Agarwal Orders for Microbiology Reports Name Date Culture Wound. 05/16/23 Culture Blood. 05/15/23 Culture Blood. 05/15/23 Microbiology Reports TEST:Culture Wound. STATUS:Auth (Verified) BODY SITE:Foot, Left SOURCE:Wound COLLECTED DATE/TIME:05/16/23 3:40 PM FINAL REPORT Rare Mixed skin alessandro STAIN REPORT No polymorphonuclear cells seen. No Bacteria seen TEST:Culture Blood. STATUS:Auth (Verified) BODY SITE: SOURCE:Peripheral Blood COLLECTED DATE/TIME:05/15/23 4:41 PM FINAL REPORT No growth at 5 days TEST:Culture Blood. STATUS:Auth (Verified) BODY SITE: SOURCE:Peripheral Blood COLLECTED DATE/TIME:05/15/23 4:36 PM FINAL REPORT No growth at 5 days Radiology Reports * Exam Date Time Procedure Performing Provider Status 05/15/23 1:12 PM MRI Foot w/ + w/o Contrast Left Walter Kinney; Final Notes: (MRI Foot w/ + w/o Contrast Left) Reason For Exam: nonhealing wound, concern for osteomyelitis MRI Foot w/ + w/o Contrast Left EXAM: MRI LEFT FOOT WITHOUT AND WITH CONTRAST HISTORY: nonhealing wound, concern for osteomyelitis COMPARISON: MRI left foot 06/05/2022. X-ray left foot 06/05/2022 TECHNIQUE: Multiplanar multisequence MRI of the left foot without and with intravenous contrast was performed. CONTRAST: 8 mL Gadavist intravenously. FINDINGS: BONES: Extensive susceptibility artifact from surgical changes about the medial mid foot and first metatarsal bone. Enthesophyte associated with the posterior and plantar aspects of the calcaneus. Noabnormal signal in the visualized bones. The bones of the medial midfoot and first metatarsal bone are not well assessed due to susceptibility artifact. JOINT SPACES: Unremarkable. TENDONS: Visualized flexor, extensor, and peroneal tendons are intact and unremarkable. LIGAMENTS: Lis franc ligament is grossly intact. MUSCLES: Unremarkable. SOFT TISSUES: There is increased intermediate signal with a small amount of edema plantar aspects of the first metatarsal head. BURSA: No intermetatarsal bursal fluid. IMPRESSION: No MRI evidence of osteomyelitis with the limitation that the medial midfoot and first metatarsal bone is not well seen due to metallic artifact. [place] Act 112: This study does not meet the requirements of [place] Act 112. Workstation ID: [id number] Final Dictated by:DO Smith Chad W Dictated DT/TM:05/15/2023 5:03 Signed by:DO Smith Chad W Signed (Electronic Signature):05/15/2023 5:02 p Vital Signs Most recent to oldest [Reference Range]: 1 2 3 Height 187.9 cm (05/13/23 3:24 PM) Patient Weight 80.2 kg (05/18/23 3:47 AM) 82.9 kg (05/14/23 5:49 AM) 81.3 kg (05/13/23 3:24 PM) Body Mass Index 23.03 kg/m2 (05/13/23 3:24 PM) Temperature [36.5-37.9 DegC] 36.0 DegC *LOW* (05/20/23 9:10 AM) 36.0 DegC *LOW* (05/20/23 6:01 AM) 36.5 DegC (05/19/23 11:46 PM) Heart Rate 64 bpm (05/20/23 11:17 AM) 70 bpm (05/20/23 9:10 AM) 70 bpm (05/20/23 8:14 AM) Respiratory Rate 18 br/min (05/20/23 9:10 AM) 20 br/min (05/20/23 6:01 AM) 20 br/min (05/19/23 11:46 PM) Blood Pressure 114/62mmHg (05/20/23 9:10 AM) 117/66mmHg (05/20/23 6:01 AM) 116/97mmHg (05/19/23 11:46 PM) Mean Blood Pressure 79 mmHg (05/20/23 9:10 AM) 75 mmHg (05/17/23 12:23 AM) 100 mmHg (05/16/23 5:22 AM) Cuff Pulse Pressure 52 mmHg (05/20/23 9:10 AM) 51 mmHg (05/20/23 6:01 AM) 19 mmHg (05/19/23 11:46 PM) BP Location # 1 Left Arm (05/20/23 9:10 AM) Left Arm (05/19/23 11:46 PM) Left Arm (05/19/23 4:38 PM) Social History Social History Type Response Smoking Status Never smoked cigaret oriana Sex Female Discharge instructions * MD Lexi, Carrington Quintero: PERFORM Event Display: Patient Discharge Instructions Authored Date: [id number] BROWN DONIS :1940 Visit Date:05/13/2023 Patient Discharge Instructions A final Discharge Instructions document already exists on this encounter. Click the cancel button, discard changes and forward the existing Discharge Instructions to Refuse,Document to create new instructions. [facility] For questions or further information, call: . Date of Admission:05/13/2023 Date of Discharge:05/20/2023 Physician:MD Lexi, Carrington Quintero Service:Hospitalist Discharge Disposition: . Advance Directive:None Reason for Hospitalization Cellulitis of left foot Your Diagnoses Cellulitis of left foot Nonhealing ulcer of left lower leg Type 2 diabetes mellitus with hyperglycemia, with long-term current use of insulin Bacteremia CKD (chronic kidney disease) stage 3, GFR 30-59 ml/min Hypothyroidism Afib Diabetes Diarrheal stools Hardware complicating wound infection History of Clostridium difficile infection Recurrent bacterial infection Recurrent infections Wound of left foot My Health Patient Portal: [facility] makes it easy for you to manage your health information online. My [facility] is a free service that provides you instant, secure access to your medical information anytime, anywhere. Sign in or set up your account today at [facility] [email or web address] Thank you for allowing us to assist you with your healthcare needs. Medications What How Much When Instructions Next Dose New lactobacillus rhamnosus GG (lactobacillus rhamnosus GG oral capsule) 1 cap by mouth Once daily Duration: 30 Days Pickup at [facility]. New piperacillin-tazobactam (Zosyn 4 g-0.5 g/ 100 mL intravenous solution) 4.5 gram intravenously Every 8 hours stop date 2022 New repaglinide (Prandin 0.5 mg oral tablet) 1 tab(s) by mouth 3 times daily Duration: 30 Days Prandin 0.5 mg TID hold dose if meal is missed Pickup at [facility]. New vancomycin (vancomycin oral capsule 125 mg) 1 cap by mouth Every 12 hours Duration: 25 Days stop date 2022 Pickup at [facility]. Changed insulin degludec (Tresiba FlexTouch 100 units/ mL subcutaneous solution) 30 unit(s) subcutaneously 2 times daily Recommend Tresiba 30 BID (15 if BG < 120 or not eating); Prandin 0.5 mg TID if BG > 150; continue Ozempic 0.5 mg weekly Changed levothyroxine (levothyroxine 75 mcg (0.075 mg) oral tablet) 90 tab Changed metoprolol (metoprolol succinate 50 mg oral tablet, extended release) 1 tab(s) by mouth Once daily Duration: 90 Days Pickup at [facility]. Changed semaglutide (Ozempic (0.25 mg or 0.5 mg dose) 2 mg/ 3 mL subQ pen) 3 mL Unchanged acetaminophen (acetaminophen 650 mg oral tablet, extended release) ORAL, 1 Refill(s), 1 tab by mouth twice a day Unchanged apixaban (apixaban 5 mg oral tablet) 1 tab(s) by mouth 2 times daily Unchanged atorvastatin (atorvastatin 40 mg oral tablet) 1 tab(s) by mouth Once daily 90 each Unchanged bifidobacterium-lactobacillus (Probiotic Formula) 1 cap by mouth Once daily Unchanged calcium carbonate (calcium (as carbonate) 600 mg oral tablet) 1 tab(s) by mouth Once daily as needed for as needed for indigestion Unchanged cholecalciferol (cholecalciferol 25 mcg (1000 intl units) oral capsule) 1 cap by mouth Once daily Unchanged clopidogrel (clopidogrel 75 mg oral tablet) 1 tab(s) by mouth Thursday, Thursday and Thursday 36 each Unchanged cyanocobalamin (cyanocobalamin 2500 mcg oral tablet) 1 tab(s) by mouth Once daily Unchanged gabapentin (gabapentin 800 mg oral tablet) 1 tab(s) by mouth 2 times daily Unchanged multivitamin 1 tab(s) by mouth Once daily Unchanged pantoprazole (pantoprazole 40 mg oral delayed release tablet) 1 tab(s) by mouth Once daily Unchanged potassium gluconate (potassium gluconate 595 mg (99 mg elemental potassium) oral tablet) 1 tab(s) by mouth Once daily [facility] [place] [address] [phone] What How Much When Comments Stop Taking cephalexin 1,000 Milligram by mouth 4 times daily Stop Taking omega-3 polyunsaturated fatty acids (Adena-3 1000 mg oral capsule) 1 cap by mouth Once daily Stop Taking traMADol (traMADol 50 mg oral tablet) Allergies metFORMINDiarrhea What to do next Instructions From Your Doctor Recommend [id number] BID(15 if BG < 120 or not eating); Prandin 0.5 mgTID if BG > 150; continue Ozempic 0.5 mg weekly Please follow with your PCP, advisedto repeat CBC, CMP in 1 week Please monitor blood pressure before taking any medicationif you are on antihypertensive medication -Make a BP diary, follow-up with PCP, titrate medication as per PCP recommendation Please monitor your sugar before taking any insulin/antidiabetic medication - -Avoid insulin oral hypoglycemic drugsif blood sugar really low. If you notice the following symptoms Contact us at If unable to contact your physician and you feel it is an emergency, go to the nearest Emergency Room or call 911 Diet Instructions Activity Instructions Follow-Up Appointments You Need to Schedule the Following Appointments Follow Up YAO Durbin, Radha Ibarra, Endocrinology Why: Call [facility] for appt. call your doctor to make an appointment Where: [address] [place] [address]- [phone] Follow Up MD Andrew, Jame Sifuentes, Infectious Diseases Why: Call [facility] for appt. call your doctor to make an appointment Where: Infectious Disease [address] [place] [address]- [phone] Follow Up withDO Caal Douglas D Where: [facility] [address] [place] [address] [phone] Follow Up Winsome Caal When:In 0 days Follow Up withFollow up With Dr. Santos ( Dr. Caal is full ) On May 28 2023 @ 1:30 PM [address] [facility] [phone] The Following Services Have Been Arranged for You Service: Organization: Business Address: Phone Number: Home [facility] [address] [facility] [place], [address] [place] [address], [address], [place], [address] Tests Pending None Special Instructions Common Emergency Awareness Tips Call 911 immediately if: experiencing any of the warning signs and symptoms of stroke: B.E. F.A.S.T. Balance: is there trouble with walking or coordination Eyes: is there double vision or visual loss Face: Smile, do both sides of face move equally Arm: Raise arms, do both arms move equally Speech: Is speech slurred or inappropriate Time: Time is critical, call 911 immediately Heart Attack Signs Chest discomfort: Most heart attacks involve discomfort in the center of the chest and lasts more than a few minutes, or goes away and comes back. It can feel like uncomfortable pressure, squeezing, fullness or pain. Discomfort in upper body: Symptoms can include pain or discomfort in one or both arms, back, neck, jaw or stomach. Shortness of breath: With or without discomfort. Other signs: Breaking out in a cold sweat, nausea, or lightheaded. Remember, MINUTES DO MATTER. If you experience any of these heart attack warning signs, call to get immediate medical attention! Education Materials PICC Insertion A peripherally inserted central catheter (PICC) is a form of IV access that allows medicines and IVfluids to be quickly put into the blood and spread throughout the body. The PICC is a long, thin, flexible tube (catheter) that is put into a vein in a person's arm or leg. The PICC is guided throughthe vein until the tip or end of it is in a large vein called the superior vena cava (SVC) just outside the heart. After the PICC is put in, a chest X-ray may be done to make sure that it is in the right place. Only a health care provider trained in PICC insertion will do this procedure. A PICC may be inserted for use in a short-term facility, in a long-term facility, or at home with home health nursing care. You may have a PICC placed: To give medicines and nutrition for a few weeks, months, or even longer. To give fluids or blood products quickly. To take blood samples often. If there is a problem placing a peripheral intravenous (PIV) catheter. Tell a health care provider about: Any allergies you have. All medicines you are taking, including vitamins, herbs, eye drops, creams, and okqa-aey-gipzvdm medicines. Any problems you or family members have had with anesthetic medicines. Any bleeding problems you have. Any surgeries you have had. Any medical conditions you have. Whether you are or may be . What are the risks? Generally, this is a safe procedure. However, problems may occur, including: Bleeding. This may happen at the insertion site or internally. Infection. This may occur at the insertion site or in the blood. PICC malposition. This is movement or poor placement of the PICC. Inflammation of the vein (phlebitis). Nerve injury or irritation. Clot formation at the tip of the PICC. Other risks include: Blood clot in the lung (pulmonary embolus). Injury or collapse of the lung (pneumothorax). Injury to the large blood vessels or the heart. What happens before the procedure? Ask your health care provider about: Changing or stopping your regular medicines. This is especially important if you are taking diabetes medicines or blood thinners. Taking medicines such as aspirin and ibuprofen. These medicines can thin your blood. Do not take these medicines unless your health care provider tells you to take them. Taking lbsh-lar-fysvecz medicines, vitamins, herbs, and supplements. You may have blood tests. These tests can help tell how well your blood clots. Follow instructions from your health care provider about eating or drinking restrictions. If you will be going home right after the procedure, plan to have a responsible adult: Take you home from the hospital or clinic. You will not be allowed to drive. Care for you for the time you are told. Ask your health care provider what steps will be taken to help prevent infection. These steps may include: Removing hair at the surgery site. Washing skin with a germ-killing soap. What happens during the procedure? Your health care provider will find a vein into which the PICC will be inserted. This may be done using ultrasound or X-ray guidance (fluoroscopy). You might be given one or more of the following: A medicine to help you relax (sedative). A medicine to numb the area (local anesthetic). A tourniquet will be placed on your arm to control blood flow to the area. Large drapes might be placed over your body where the PICC will be inserted. A small needle will be put into your vein, and then a small guidewire will be slid into your SVC. The catheter will be advanced over the guidewire and moved into place. The guidewire will then be removed. The catheter will be flushed, and blood will be drawn back to make sure the catheter is in the vein. If the catheter was placed without X-ray guidance, an X-ray will be done to make sure that the catheter tip is in the correct position. The PICC will be secured to your skin using stitches (sutures), tape, or a device that sticks to your skin. A type of germ-free bandage (sterile dressing), such as an airtight (occlusive) sterile dressing, will be placed over the PICC insertion site. The procedure may vary among health care providers and hospitals. What happens after the procedure? Your blood pressure, heart rate, breathing rate, and blood oxygen level will be monitored until youleave the hospital or clinic. You will be told how to care for your PICC. If you were given a sedative during the procedure, it can affect you for several hours. Do not drive or operate machinery until your health care provider says that it is safe. Summary A peripherally inserted central catheter (PICC) is a form of IV access that allows medicines and IVfluids to be quickly put into the blood and spread throughout the body. The PICC is a long, thin, flexible tube that is put into a vein in your arm or leg and then guided to a large vein just outside your heart. You will be told how to care for your PICC. This information is not intended to replace advice given to you by your health care provider. Make sure you discuss any questions you have with your health care provider. Document Revised: 05/21/2022 Document Reviewed: 05/21/2022 Elsevier Patient Education 2022 [employer] .D/C Summary * MD Lexi, Carrington Quintero: PERFORM Event Display: .D/C Summary Authored Date: [id number] [facility] For questions or further information, call: . Address: [address] [place] [address] ROSE BRITO [phone] (HOME) :[phone] . Date of Admission:05/13/2023 Date of Discharge:05/20/2023 Physician:MD Lexi, Carrington Quintero Service:Hospitalist Discharge Disposition: Primary Care Provider/Phone: CAALDO DOUGLAS Satish (BUSINESS) [phone] (FAX BUSINESS) Principal Diagnosis: Cellulitis of left foot Other Diagnoses: Nonhealing ulcer of left lower leg Type 2 diabetes mellitus with hyperglycemia, with long-term current use of insulin Bacteremia CKD (chronic kidney disease) stage 3, GFR 30-59 ml/min Hypothyroidism Afib Diabetes Diarrheal stools Hardware complicating wound infection History of Clostridium difficile infection Recurrent bacterial infection Recurrent infections Wound of left foot Brief History of Present Illness: History of Present Illness Vital signs within normal range. Blood glucose >170 [facility] she was found to have a faecalis bacteremiawas treated initially with Vanco and cefepime subsequently switched to ampicillin. She is known to have recurrent cellulitis over the leg andb[facility]. She has multiple surgeries in the leftfoot and was initially offered a BKA in the past which she refused. Due to the recurrent infection patients nowreconsidering the BKA and she wants to explore options including possible BKA. Vascular surgery is aware. She reportedly went to the hospital last Thursday after she developed a fever. Patient was transferred by Enrique Marino Review of Systems ROS: Hospital Course: This is a 83[facility]. PMH: Hypothyroidism, hypertension, recurrent cellulitis Patient admitted for management of nonhealing wound ulcer left foot, bacteremia, suspected hardwarecomplication wound infection,evaluated by vascular team recommended conservative management,s/pbedside debridement bypodiatry team, wound culture pending, evaluated by ID team recommendedtreat with Zosyn for 4 weeks tentative stop date 06/17/2023followed by chronicsuppressive antibioticwith Augmentin. 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 -Evaluated by podiatry is status post bedside debridement -follow wound culture -Per vascularteamconservative management. Type 2 diabetes mellitus, insulin-dependent with hyperglycemia, insulin sliding scale, HbA1c level 7.9, -Endocrine note appreciated - Recommend [id number] BID(15 if BG < 120 or not eating); Prandin 0.5 mgTID if BG > 150; continue Ozempic 0.5 mg weekly Paroxysmal atrial fibrillationcontinue metoprolol, Eliquis CKD 3 A,monitor renal function, avoid nephrotoxic medication Hypothyroidism continue levothyroxine Anemiacombination of CKD, iron deficiency anemia, started on IV treatment in house, oral on discharge. DVT prophylaxis:chem GI Prophylaxis: PPI/H2B HOB elevation > 30 degrees Frequent turn and position Pressure ulcer preventative measures and care as per nursing protocol. Discharge disposition -pendingsocial clearance possible discharge on Thursday with outpatient home infusion set up/home health services Exam on Discharge: Vitals & Measurements: T:36.0C TMIN:36.0C TMAX:36.5C HR:64(Monitored) RR:18 BP:114/62 SpO2:97% Oxygen Therapy:Room air Discharge Medications: 1.Acetaminophen (acetaminophen 650 mg oral tablet, extended release) . ORAL, 1 Refill(s), 1 tab by mouth twice a day. 2.Apixaban (apixaban 5 mg oral tablet) 5 mg (1 tab) by mouth 2 times daily. . 3.Atorvastatin (atorvastatin 40 mg oral tablet) 40 mg (1 tab) by mouth once daily. 90 each. 4.Clopidogrel (clopidogrel 75 mg oral tablet) 75 mg (1 tab) by mouth Thursday, Thursday and Thursday. 36 each. 5.Potassium gluconate (potassium gluconate 595 mg (99 mg elemental potassium) oral tablet) 595 mg (1 tab) by mouth once daily. 6.Cholecalciferol (cholecalciferol 25 mcg (1000 intl units) oral capsule) 25 mcg (1 cap) by mouth once daily. 7.Multivitamin 1 tab by mouth once daily. 8.Insulin degludec (Tresiba FlexTouch 100 units/mL subcutaneous solution) 30 unit subcutaneously 2 times daily. Recommend Tresiba 30 BID (15 if BG < 120 or not eating); Prandin 0.5 mg TID if BG > 150; continue Ozempic 0.5 mg weekly. 9.Gabapentin (gabapentin 800 mg oral tablet) 800 mg (1 tab) by mouth 2 times daily. 10.Pantoprazole (pantoprazole 40 mg oral delayed release tablet) 40 mg (1 tab) by mouth once daily. 11.Calcium carbonate (calcium (as carbonate) 600 mg oral tablet) 600 mg (1 tab) by mouth once daily, as needed for indigestion. 12.Bifidobacterium-lactobacillus (Probiotic Formula) 1 cap by mouth once daily. 13.Cyanocobalamin (cyanocobalamin 2500 mcg oral tablet) 2,500 mcg (1 tab) by mouth once daily. 14.Levothyroxine (levothyroxine 75 mcg (0.075 mg) oral tablet) . 90 tab. 15.Semaglutide (Ozempic (0.25 mg or 0.5 mg dose) 2 mg/3 mL subQ pen) . 3 mL. 16.Lactobacillus rhamnosus GG (lactobacillus rhamnosus GG oral capsule) 1 cap by mouth once daily. 17.Metoprolol (metoprolol succinate 50 mg oral tablet, extended release) 50 mg (1 tab) by mouth once daily. 18.Piperacillin-tazobactam (Zosyn 4 g-0.5 g/100 mL intravenous solution) 4.5 g intravenously every 8 hours. stop date 06/17/2023. 19.Vancomycin (vancomycin oral capsule 125 mg) 125 mg (1 cap) by mouth every 12 hours. stop date 06/17/2023. 20.Repaglinide (Prandin 0.5 mg oral tablet) 0.5 mg (1 tab) by mouth 3 times daily. Prandin 0.5 mgTID hold dose if meal is missed. Allergies and Sensitivities: metFORMINDiarrhea Tests Pending: None Other Appointments: Follow Up YAO Durbin, Radha Ibarra, Endocrinology Why: Call [facility] for appt. Call your doctor to make an appointment Where: [address] [place] [address]- [phone] Follow Up MD Andrew, Jame Sifuentes, Infectious Diseases Why: Call [facility] for appt. Call your doctor to make an appointment Where: Infectious Disease [address] [place] [address]- [phone] Follow Up withDO Caal Douglas D Where: [facility] [address] [place] [address]- [phone] Follow Up withMoise Caal When:In 0 days Follow Up withFollow up With Dr. Santos ( Dr. Caal is full ) On May 28 2023 @ 1:30 PM [address] [facility] [phone] Discharge Services: Service: Organization: Business Address: Phone Number: Home Care Physician Services Team [facility] [address] [place], [address] [facility] [place] [place] [address], [address], [place], [address] Care Instructions: Recommend [id number] BID(15 if BG < 120 or not eating); Prandin 0.5 mgTID if BG > 150; continue Ozempic 0.5 mg weekly Please follow with your PCP, advisedto repeat CBC, CMP in 1 week Please monitor blood pressure before taking any medicationif you are on antihypertensive medication -Make a BP diary, follow-up with PCP, titrate medication as per PCP recommendation Please monitor your sugar before taking any insulin/antidiabetic medication - -Avoid insulin oral hypoglycemic drugsif blood sugar really low. . Advance Directive:None I personally spent _ 35 minutes in discharge planning. Electronic Signature on File Electronically Reviewed/Signed by: Carrington Elliott MD Author Signature Dt/Tm:05/20/2023 11:19 AM [facility] Hospitalist NIEVES ID General Inpt Consult * MD Cosmo, Jame Sifuentes: PERFORM Event Display: ID General Inpt Consult Authored Date: [id number] Assessment/Plan 1.Bacteremia Admitted to outside hospital with bacteremiaandfoot wound Pertinent microbiology E. Faecalis bacteremia Follow-up repeat blood cultures Follow-up wound cultures Likely sourceleft footinfection site. Follow-up MRI of the left foot Patient was seen by vascular surgery and recommended against any intervention. -Follow-up podiatry recommendations Continue ampicillin IV for now Final recommendations depending on culture data as well asMRI data 2.Wound of left foot As mentioned in #1. Continue wound care. She reports history of multiple screws in the footwhen she had foot surgery almost 6 yearsback sometime [id number]. Since then patient has been struggling with recurrent foot infections andin past she was offered below-knee amputation. -Continue management as above 3.Recurrent bacterial infection As mentioned in #2. Continue management as in #1 4.Hardware complicating wound infection As mentioned in #2. Continue management as in #1 5.CKD (chronic kidney disease) stage 3, GFR 30-59 ml/min Monitor renal function. Dosage antibiotics accordingly. 6.Afib Management as per primary team 7.Diabetes Management as per primary team Case discussed with the patient, covering staff, nursing Chief Complaint Recurrent infection, bacteremia Reason for Consultation Nonhealing wound infection with bacteremia History of Present Illness 83-year-old female with PMH of A-fib,DM,GERD, HTN, hypothyroidism,right hip painwho [facility] of b[facility]eremia and sepsislikely due toleft foot woundand was seen by vascular surgery. Patient has history of recurrentleft foot infection/cellulitisand in past she was offered below-knee amputation. She reports history of multiple screws in the footwhen she had foot surgery almost 6 yearsback sometime [id number]. Since then patient has been struggling with recurrent foot infections. She was started initially on vancomycin and cefepimeand later it was switched to ampicillin. Review of Systems All 14 systems reviewed. All negative except mentioned above. Physical Exam Vitals & Measurements T:36.4C TMIN:35.8C TMAX:36.8C HR:77(Monitored) RR:18 BP:113/70 SpO2:100% Oxygen Therapy:Room air Input and Output - Last 24 hours (Last 8 hours) Total In: 644 (290) Total Out: 0 (0) Total Balance: 644 (290) MED INTAKE:204 (50) Oral Fluids:440 (240) Stool Count 1(1) PHYSICAL EXAMINATION: Constitutional: no acute distress, ill appearing, appears stated age, not cachectic HEENT: normocephalic, atraumatic; no masses, tenderness, or adenopathy Eyes: PERRLA, sclera and conjunctiva normal, no icterus or obvious discharge Neck: supple, normal range of motion, no thyromegaly, no adenopathy CV: normal rate and rhythm, no murmur, gallops or rub Chest: normal respiratory effort, lungs clear to auscultation- no wheezing or rales, breath sounds normal Abdomen/GI: soft, bowel sounds normal, no masses, tenderness or organomegaly, nondistended Musculoskeletal: (-) negative for new joint tenderness, redness, swelling or effusion Extremities: Left footopen wound as shown in pictures below : no dysuria, no incontinence,discharge, pain Lymph Nodes: no palpable adenopathy Skin: warm, dry, intact, no paleness, no new lesions or rash Neuro: alert, awake, no new focal deficits, muscular strength at baseline, reflexes normal and symmetric, sensory at baseline Psych: normal mood and affect, nonsuicidal, no homicidal ideations Images Left medial 1st MTP area 05/14/23 Left medial/plantar 1st MTP area 05/14/23 Diagnostic Results (04/21/2023 16:20 EDT VL Lower Ext Arterial Duplex Bilateral) RIGHT LE. Atherosclerotic changes with no hemodynamically significant stenosis identified in the distal external iliac, common femoral, proximal profunda femoris, superficial femoral, popliteal, posterior tibial or peroneal arteries. 2. 75-99 % stenosis of the mid anterior tibial artery. 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 3. The tibioperoneal trunk was not visualized. 4. Unable to obtain the right ankle/brachial index due to non-compressible tibial vessels. 5. Unable to obtain the right digit pressure due to bandage. LEFT LE. 50-74% stenosis of the proximal superficial femoral and proximal popliteal arteries. 2. 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 3. Atherosclerotic changes with no hemodynamically significant stenosis identified in the distal external iliac, common femoral, mid/distal superficial femoral, mid/distal popliteal, tibioperoneal trunk, peroneal or anterior tibial arteries. 4. The left ankle/brachial index is 0.87 (mildly reduced). No previous studies available to compare to regarding the right lower extremity arteries. Compared to the previous study performed 07/10/2022 (LLE), the left LILI has increased from 0.67 to 0.87. [1] Attestation This chart was completed in part utilizing Voice Recognition Software. Grammatical errors, random word insertions, pronunciation erros, and incomplete sentences are an occasional consequence of this system due to software limitations, ambient noise, and hardware issues. 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 PT trunk and proximal pop (09/05/2022) Medications Inpatient acetaminophen(Tylenol), 650 mg= 2 tab, PO, q4h, PRN albuterol(albuterol 0.083% for nebulization), 2.5 mg= 3 mL, NEB, q4h, PRN ampicillin, 1000 mg= 50 mL, IV, q6h apixaban(Eliquis), 5 mg= 1 tab, PO, bid atorvastatin, 40 mg= 1 tab, PO, Daily clopidogrel(Plavix), 75 mg= 1 tab, PO, Daily dextrose(Dextrose 50% syringe), 50 mL, IV Push, As indicated, PRN dextrose(Dextrose 50% syringe), 25 mL, IV Push, As indicated, PRN glucagon, 1 mg, IM, As indicated, PRN glucose, 15 g, buccal, As indicated, PRN glucose, 30 g, buccal, As indicated, PRN insulin aspart(NovoLOG Sliding Scale Moderate), 0-8 unit, subQ, ac and hs levothyroxine, 75 mcg= 1 tab, PO, Daily ondansetron(Zofran), 4 mg= 2 mL, IV Push, q6h, PRN Home acetaminophen(acetaminophen 650 mg oral tablet, extended release) apixaban(apixaban 5 mg oral tablet), 5 mg= 1 tab, PO, bid atorvastatin(atorvastatin 40 mg oral tablet), 40 mg= 1 tab, PO, Daily bifidobacterium-lactobacillus(Probiotic Formula), 1 cap, PO, Daily calcium carbonate(calcium (as carbonate) 600 mg oral tablet), 600 mg= 1 tab, PO, Daily, PRN cephalexin, 1000 mg, PO, qid cholecalciferol(cholecalciferol 25 mcg (1000 intl units) oral capsule), 25 mcg= 1 cap, PO, Daily clopidogrel(clopidogrel 75 mg oral tablet), 75 mg= 1 tab, PO, qMonWedFri cyanocobalamin(cyanocobalamin 2500 mcg oral tablet), 2500 mcg= 1 tab, PO, Daily gabapentin(gabapentin 800 mg oral tablet), 800 mg= 1 tab, PO, bid insulin degludec(Tresiba FlexTouch 100 units/mL subcutaneous solution), 34 unit, subQ, qPM insulin degludec(Tresiba FlexTouch 100 units/mL subcutaneous solution), 24 unit, subQ, qAM levothyroxine(levothyroxine 75 mcg (0.075 mg) oral capsule), 75 mcg= 1 cap, PO, Daily metoprolol(metoprolol tartrate 25 mg oral tablet), 25 mg= 1 tab, PO, bid multivitamin, 1 tab, PO, Daily omega-3 polyunsaturated fatty acids(Adena-3 1000 mg oral capsule), 1000 mg= 1 cap, PO, Daily pantoprazole(pantoprazole 40 mg oral delayed release tablet), 40 mg= 1 tab, PO, Daily potassium gluconate(potassium gluconate 595 mg (99 mg elemental potassium) oral tablet), 595 mg= 1 tab, PO, Daily semaglutide(Ozempic (0.25 mg or 0.5 mg dose) 2 mg/1.5 mL subcutaneous solution) traMADol(traMADol 50 mg oral tablet) Allergies metFORMINDiarrhea Social History Smoking Status Never smoked cigarettes Family History No family history of similar symptoms Immunizations As per primary team Lab Results eGFR CKD-EPI:55 7 Day Labs Last Updated 05/15/23 12:00 05/15/23 11:59 Glucose (POCT)165H 05/15/23 08:02 Glucose (POCT)188H 05/14/23 20:41 Glucose (POCT)143H 05/14/23 16:58 Blood [id number] 05/14/23 15:47 Glucose (POCT)113H 05/14/23 11:37 Glucose (POCT)224H 05/14/23 08:04 Glucose (POCT)190H 05/14/23 06:02 Estimated CrCl52.64 05/14/23 05:04 Hct38.5 Hgb12.2 MCH28.0 MCHC31.7L MCV88.3 Nunt315 RBC4.36 WBC6.52 MPV10.1 RDW-CV14.6H RDW-SD47 Nuc RBC Relative Count0 Nuc RBC Abs Count0.00 Anion Gap12 BUN23 Ca9.3 Cl-108H Cret1.01H Vdd276A K4.0 Na143 CO223 eGFR CKD-EPI55L 05/13/23 21:22 Glucose (POCT)206H 05/13/23 21:11 Estimated CrCl50.63 05/13/23 20:22 Hct39.0 Hgb12.6 MCH28.0 MCHC32.3 MCV86.7 Uanh880 RBC4.50 WBC6.83 MPV10.2 Immature Gran%0.7 Neut%54.7 Lymph%36.0 [place]%6.1 Baso%1.2 Eos%1.3 Immat Gran, Abs0.05 Neut, Abs3.73 Lymph, Abs2.46 [place], Abs0.42 Baso, Abs0.08 Eos, Abs0.09 RDW-CV14.6H RDW-SD47 Nuc RBC Relative Count0 Nuc RBC Abs Count0.00 Anion Gap11 BUN22 Ca9.5 Cl-104 Cret1.05H Lyi500F K4.1 Na138 CO223 eGFR CKD-EPI53L 05/13/23 16:25 Glucose (POCT)179H [1]VL Lower Ext Arterial Duplex Bilateral; MD Tara, Keila L 04/21/2023 16:20 EDT Electronic Signature on File Electronically Reviewed/Signed by: Jame Wilburn MD Author Signature Dt/Tm:05/15/2023 02:50 PM Infectious Disease [facility] * FAITH Alcala, Valeria T: MODIFY, PERFORM Event Display: Vascular Surgery Inpt Consult Authored Date: [id number] History of Present Illness Patient is an 83 year old female [facility] for bacte[facility] and sepsis.She was originallytreated with vancomycin and cefepime now switched to ampicillin. She has had recurrent episodes of cellulitis and left foot infection. She states that since her last foot surgery 6 years ago, she has been dealing with a foot wound and infection on and off. Shereports having multiple screws in her foot. She states that she developed a fever about a week ago. She has neuropathy in both feet. Shedenies pain with ambulation. She was seen byDr. Zamudio earlier this month. At that time, they recommend follow up with podiatry for further recommendations regarding the foot wound, chase circulation of the left leg was optimized. Review of Systems as above Physical Exam Vitals & Measurements T:35.9C TMIN:35.8C TMAX:36.9C HR:78(Monitored) RR:17 BP:117/69 SpO2:97% Oxygen Therapy:Room air WT:82.9kg Input and Output - Last 24 hours (Last 8 hours) Total In: 352 (102) Total Out: 0 (0) Total Balance: 352 (102) MED INTAKE:152 (102) Oral Fluids:200 (0) Stool Count 1(0) Urine Count 2(1) GENERAL:Awake, alert, and oriented.Innoapparentdistress. HEENT: Normocephalic, atraumatic. NECK:No masses. RESPIRATORY:Clear and unlabored. CARDIOVASCULAR:Regular rate and rhythm. No heart murmurs. GASTROINTESTINAL:Soft, non-tender, non-distended. SKIN:see image NEUROLOGIC:Cranial nerves intact, Motor function intact and Sensory exam intact. VASCULAR: palpable left femoral and DP pulses. Images 2023-05-14 08:43:39 Diagnostic Results (04/21/2023 16:20 EDT VL Lower Ext Arterial Duplex Bilateral) INTERPRETATION/FINDINGS Arterial duplex imaging performed of the bilateral lower extremities: RIGHT LE. Atherosclerotic changes with no hemodynamically significant stenosis identified in the distal external iliac, common femoral, proximal profunda femoris, superficial femoral, popliteal, posterior tibial or peroneal arteries. 2. 75-99 % stenosis of the mid anterior tibial artery. 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 3. The tibioperoneal trunk was not visualized. 4. Unable to obtain the right ankle/brachial index due to non-compressible tibial vessels. 5. Unable to obtain the right digit pressure due to bandage. LEFT LE. 50-74% stenosis of the proximal superficial femoral and proximal popliteal arteries. 2. 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 3. Atherosclerotic changes with no hemodynamically significant stenosis identified in the distal external iliac, common femoral, mid/distal superficial femoral, mid/distal popliteal, tibioperoneal trunk, peroneal or anterior tibial arteries. 4. The left ankle/brachial index is 0.87 (mildly reduced). No previous studies available to compare to regarding the right lower extremity arteries. Compared to the previous study performed 07/10/2022 ([facility]), the left LILI has increased from 0.67 to 0.87. [1] Assessment/Plan Bacteremia Patient has nonhealing wound of left foot. Currently afebrile and white count is normal. No indication for urgent amputation. Circulation is adequate as she has a palpable left DP pulse. Patient would like to pursue further workup of her foot to see if a less invasive intervention is possible. Recommend podiatry consult with left foot imaging for further work up. Attestation Non-critical care Shared/Split Visit The supervising physician,Berhane Lombardo, [id number] minutes of discrete time performing the activities of this visit. The JAVA CONSULTANT/PA,[id number] minutes of discrete time performing the activities of this visit. Overlapping time between MD and PA was10 minutes. The total visit time [id number] minutes of shared time between the JAVA CONSULTANT/PA and physician. Activities included: -Review of the medical record -Obtaining a history -Physical exam/evaluation -Counseling/educating patient/family/caregiver -Discussion/referral to other healthcare professional -Documenting care in the medical record -Independent interpretation of results -Communication of results to patient/family/caregiver -Coordination of care Problem List/Past Medical History Ongoing Afib Arthritis (atherosclerosis) Diabetes Glaucoma Heartburn Hypertension Hypothyroidism Numbness Pneumonia Right hip pain Procedure/Surgical History [facility] Angiogram w/ lithotripsy and BOILING TUB [employer]PER[employer] PT trunk and proximal pop (09/05/2022) Medications Inpatient acetaminophen(Tylenol), 650 mg= 2 tab, PO, q4h, PRN albuterol(albuterol 0.083% for nebulization), 2.5 mg= 3 mL, NEB, q4h, PRN ampicillin, 1000 mg= 50 mL, IV, q6h dextrose(Dextrose 50% syringe), 50 mL, IV Push, As indicated, PRN dextrose(Dextrose 50% syringe), 25 mL, IV Push, As indicated, PRN glucagon, 1 mg, IM, As indicated, PRN glucose, 15 g, buccal, As indicated, PRN glucose, 30 g, buccal, As indicated, PRN heparin, 5000 unit= 0.5 mL, subQ, q8h insulin aspart(NovoLOG Sliding Scale Moderate), 0-8 unit, subQ, ac and hs ondansetron(Zofran), 4 mg= 2 mL, IV Push, q6h, PRN Home acetaminophen(acetaminophen 650 mg oral tablet, extended release) apixaban(apixaban 5 mg oral tablet), 5 mg= 1 tab, PO, bid atorvastatin(atorvastatin 40 mg oral tablet), 40 mg= 1 tab, PO, Daily bifidobacterium-lactobacillus(Probiotic Formula), 1 cap, PO, Daily calcium carbonate(calcium (as carbonate) 600 mg oral tablet), 600 mg= 1 tab, PO, Daily, PRN cephalexin, 1000 mg, PO, qid cholecalciferol(cholecalciferol 25 mcg (1000 intl units) oral capsule), 25 mcg= 1 cap, PO, Daily clopidogrel(clopidogrel 75 mg oral tablet), 75 mg= 1 tab, PO, qMonWedFri cyanocobalamin(cyanocobalamin 2500 mcg oral tablet), 2500 mcg= 1 tab, PO, Daily gabapentin(gabapentin 800 mg oral tablet), 800 mg= 1 tab, PO, bid insulin degludec(Tresiba FlexTouch 100 units/mL subcutaneous solution), 34 unit, subQ, qPM insulin degludec(Tresiba FlexTouch 100 units/mL subcutaneous solution), 24 unit, subQ, qAM levothyroxine(levothyroxine 75 mcg (0.075 mg) oral capsule), 75 mcg= 1 cap, PO, Daily metoprolol(metoprolol tartrate 25 mg oral tablet), 25 mg= 1 tab, PO, bid multivitamin, 1 tab, PO, Daily omega-3 polyunsaturated fatty acids(Adena-3 1000 mg oral capsule), 1000 mg= 1 cap, PO, Daily pantoprazole(pantoprazole 40 mg oral delayed release tablet), 40 mg= 1 tab, PO, Daily potassium gluconate(potassium gluconate 595 mg (99 mg elemental potassium) oral tablet), 595 mg= 1 tab, PO, Daily semaglutide(Ozempic (0.25 mg or 0.5 mg dose) 2 mg/1.5 mL subcutaneous solution) traMADol(traMADol 50 mg oral tablet) Allergies metFORMINDiarrhea Social History Smoking Status Never smoked cigarettes [1]VL Lower Ext Arterial Duplex Bilateral; MD Pacheco Kristine L 04/21/2023 16:20 EDT Electronic Signature on File Electronically Reviewed/Signed by: Valeria Alcala PA-C Author Signature Dt/Tm:05/14/2023 11:27 AM Vascular Surgery Electronically Reviewed/Signed by: Berhane Lombardo MD Cosigner Signature Dt/Tm: 05/14/2023 11:57AM Vascular Surgery MTD History and physical note * MD Yovanny, Gurvinder Cervantes: PERFORM Event Display: H&P Authored Date: [id number] Name:BROWN DONIS Patient Number:[id number] :1940 Date of Service:05/13/2023 History of Present Illness Vital signs within normal range. Blood glucose >170 [facility] she was found to have a faecalis bacteremiawas treated initially with Vanco and cefepime subsequently switched to ampicillin. She is known to have recurrent cellulitis over the leg and[facility]. She has multiple surgeries in the leftfoot and was initially offered a BKA in the past which she refused. Due to the recurrent infection patients nowreconsidering the BKA and she wants to explore options including possible BKA. Vascular surgery is aware. She reportedly went to the hospital last Thursday after she developed a fever. Patient was transferred by Enrique Marino Review of Systems ROS: Constitutional: (-) fever chills sweats or weight loss Eyes: (-) negative, no amaurosis fugax, pain, blurred vision, or redness Cardiovascular: (-) negative: no chest pain, dyspnea, syncope, or palpitations Pulmonary: (-) negative: no cough, wheezing, or shortness of breath Abdominal/GI: (-) negative: no pain, heartburn, dysphagia, bleeding, change in bowel habits, nauseaor vomiting Musculoskeletal: left foot pain Hematology/oncology: (-) negative: no fever, night sweats, masses, or swollen nodes Skin: (-) negative: no rash or new or changing moles Neurology: (-) negative: no focal neurologic defect Psychiatry: (-) negative: no depression or anxiety Physical Exam Vitals & Measurements T:36.8C HR:71(Monitored) BP:105/56 Oxygen Therapy:Room air WT:81.3kg WT:81.300kg(Dosing) Physical Constitutional: no acute distress HEENT: normal: normocephalic, atraumatic; no masses, tenderness, or adenopathy Eyes: sclera and conjunctiva normal Neck: supple, normal range of motion, no thyromegaly, no stridor, JVP normal, no adenopathy CV: normal rate and rhythm, no murmur, gallops or rub Chest: normal respiratory effort, lungs clear to auscultation and percussion, breath sounds normal,chest wall normal Abdomen: normal: soft, bowel sounds normal, no masses, tenderness or organomegaly Skin: warm, dry, intact: Neuro: alert, oriented to person, place, and time, normal mental status exam, cranial nerves intact Psych: normal mood and affect, non-suicidal, judgement normal, memory normal Diagnostic Results (04/21/2023 16:20 EDT VL Lower Ext Arterial Duplex Bilateral) LEFT LE. 50-74% stenosis of the proximal superficial femoral and proximal popliteal arteries. 2. 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 3. Atherosclerotic changes with no hemodynamically significant stenosis identified in the distal external iliac, common femoral, mid/distal superficial femoral, mid/distal popliteal, tibioperoneal trunk, peroneal or anterior tibial arteries. 4. The left ankle/brachial index is 0.87 (mildly reduced). No previous studies available to compare to regarding the right lower extremity arteries. Compared to the previous study performed 07/10/2022 ([facility]), the left LILI has increased from 0.67 to 0.87. 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 (09/05/2022) Medications Inpatient acetaminophen(Tylenol), 650 mg= 2 tab, PO, q4h, PRN albuterol(albuterol 0.083% for nebulization), 2.5 mg= 3 mL, NEB, q4h, PRN ampicillin, 1000 mg= 50 mL, IV, q6h heparin, 5000 unit= 0.5 mL, subQ, q8h ondansetron(Zofran), 4 mg= 2 mL, IV Push, q6h, PRN Home acetaminophen(acetaminophen 650 mg oral tablet, extended release) apixaban(apixaban 5 mg oral tablet), 5 mg= 1 tab, PO, bid atorvastatin(atorvastatin 40 mg oral tablet), 40 mg= 1 tab, PO, Daily bifidobacterium-lactobacillus(Probiotic Formula), 1 cap, PO, Daily calcium carbonate(calcium (as carbonate) 600 mg oral tablet), 600 mg= 1 tab, PO, Daily, PRN cephalexin, 1000 mg, PO, qid cholecalciferol(cholecalciferol 25 mcg (1000 intl units) oral capsule), 25 mcg= 1 cap, PO, Daily clopidogrel(clopidogrel 75 mg oral tablet), 75 mg= 1 tab, PO, qMonWedFri cyanocobalamin(cyanocobalamin 2500 mcg oral tablet), 2500 mcg= 1 tab, PO, Daily gabapentin(gabapentin 800 mg oral tablet), 800 mg= 1 tab, PO, bid insulin degludec(Tresiba FlexTouch 100 units/mL subcutaneous solution), 34 unit, subQ, qPM insulin degludec(Tresiba FlexTouch 100 units/mL subcutaneous solution), 24 unit, subQ, qAM levothyroxine(levothyroxine 75 mcg (0.075 mg) oral capsule), 75 mcg= 1 cap, PO, Daily metoprolol(metoprolol tartrate 25 mg oral tablet), 25 mg= 1 tab, PO, bid multivitamin, 1 tab, PO, Daily omega-3 polyunsaturated fatty acids(Adena-3 1000 mg oral capsule), 1000 mg= 1 cap, PO, Daily pantoprazole(pantoprazole 40 mg oral delayed release tablet), 40 mg= 1 tab, PO, Daily potassium gluconate(potassium gluconate 595 mg (99 mg elemental potassium) oral tablet), 595 mg= 1 tab, PO, Daily semaglutide(Ozempic (0.25 mg or 0.5 mg dose) 2 mg/1.5 mL subcutaneous solution) traMADol(traMADol 50 mg oral tablet) Allergies metFORMINDiarrhea Social History Smoking Status Never smoked cigarettes [1]VL Lower Ext Arterial Duplex Bilateral; MD Tara, Keila Gill 04/21/2023 16:20 EDT Electronic Signature on File Electronically Reviewed/Signed by: Gurvinder Hiarston MD Author Signature Dt/Tm:05/13/2023 08:53 PM [facility] Hospitalist ANTOINETTE MR Foot - left WO and W contrast IV * Contributor_system, [id number]: PERFORM Contributor_system, [id number]: PERFORM, VERIFY DO Smith Chad W: VERIFY Event Display: Report Authored Date: [id number] EXAM: MRI LEFT FOOT WITHOUT AND WITH CONTRAST HISTORY: nonhealing wound, concern for osteomyelitis COMPARISON: MRI left foot 06/05/2022. X-ray left foot 06/05/2022 TECHNIQUE: Multiplanar multisequence MRI of the left foot without and with intravenous contrast was performed. CONTRAST: 8 mL Gadavist intravenously. FINDINGS: BONES: Extensive susceptibility artifact from surgical changes about the medial mid foot and first metatarsal bone. Enthesophyte associated with the posterior and plantar aspects of the calcaneus. Noabnormal signal in the visualized bones. The bones of the medial midfoot and first metatarsal bone are not well assessed due to susceptibility artifact. JOINT SPACES: Unremarkable. TENDONS: Visualized flexor, extensor, and peroneal tendons are intact and unremarkable. LIGAMENTS: Lis franc ligament is grossly intact. MUSCLES: Unremarkable. SOFT TISSUES: There is increased intermediate signal with a small amount of edema plantar aspects of the first metatarsal head. BURSA: No intermetatarsal bursal fluid. IMPRESSION: No MRI evidence of osteomyelitis with the limitation that the medial midfoot and first metatarsal bone is not well seen due to metallic artifact. [place] Act 112: This study does not meet the requirements of [place] Act 112. Workstation ID: [id number] Final Dictated by:DO Smith Chad W Dictated DT/TM:05/15/2023 5:03 Signed by:DO Smith Chad W Signed (Electronic Signature):05/15/2023 5:02 p Patient Care team information Care Team Personnel Name: Selin Gambino Amanda Position: Pharmacist Member Role: Pharmacy - Lifetime Name: FAITH Araujo Lynn Position: Physician [employer] Exempt - Vasc Surg Member Role: Lifetime Relationship Address: Address: [address] [place] [id number] Name: DO Caal Douglas D Position: Referring Member Role: Primary Care Provider Address: Address: [facility] [address] [place] [address] [place] Care Team Related Persons Name: MACARIO MATIAS Name: MAURY CASTRO
--- OUTSIDE RECORDS SUMMARY | 2023-10-17 00:48 | External Medical Summary ---
Author Name Unknown Address Unknown Organization L1E:[facility] [address] [place] [address] Laboratory Report Ordering Provider Test Date Status Tom Lyn 06/02/2023 10:41 Final Observation Date Value Abnormality Reference (Units ) Status Clostridium difficile toxin A+B [Presence] in Stool by Cytotoxin tissue culture assay 06/02/2023 12:00 NEGATIVE NEGATIVE Fin al Results from the C. difficil e rt-PCR Assay should be
interpreted in conjunction with other laboratory and
clinical data.

Erroneous test results might occur from improper specimen
collection, handling and storage procedures. Performing Location [address] [address]
--- OUTSIDE RECORDS SUMMARY | 2023-10-17 00:48 | External Medical Summary ---
Author Name Unknown Address Unknown Organization [facility] [employer] [facility] [employer] [facility] [address] [place] [address] [place] [address] Laboratory Report Ordering Provider Test Date Status Lexi Shultz 05/20/2023 05:57:00 Final Observation Date Value Abnormality Reference (Units ) Status Glucose [Mass/volume] in Serum or Plasma 05/20/2023 07:19:18 138 Above high normal 74-109 (MG/DL) Final Urea nitrogen [Mass/volume] in Serum or Plasma 05/20/2023 07:19:18 18 6-23 (MG/DL) Final Creatinine [Mass/volume] in Serum or Plasma 05/20/2023 07:19:18 1.25 Above high normal 0.60-1.00 (MG/DL) Final GLOMERULAR FILTRATION RATE/1.73 SQ M.PREDICTED:ARVRAT:PT:SER /PLAS/BLD:QN:CREATININE AND CYSTATIN C-BASED FORMULA (CKD-EPI 2020) 05/20/2023 07:19:18 43 Below low normal >=60 (ML/MIN/1.73 M2) Final Sodium [Moles/volume] in Serum or Plasma 05/20/2023 07:19:18 144 136-145 (MMOL/L) Final Potassium [Moles/volume] in Serum or Plasma 05/20/2023 07:19:18 4.3 3.5-5.1 (MMOL/L) Final Chloride [Moles/volume] in Serum or Plasma 05/20/2023 07:19:18 107 98-107 (MMOL/L) Final Carbon dioxide, total [Moles/volume] in Serum or Plasma 05/20/2023 07:19:18 21 Below low normal 22-29 (MMOL/L) Final Anion gap 3 in Serum or Plasma 05/20/2023 07:19:18 16 Above high normal 5-14 (MMOL/L) Final Calcium [Mass/volume] in Serum or Plasma 05/20/2023 07:19:18 9.8 8.4-10.2 (MG/DL) Final Protein [Mass/volume] in Serum or Plasma 05/20/2023 07:19:18 7.1 6.4-8.3 (G/DL) Final Albumin [Mass/volume] in Serum or Plasma by Bromocresol green (BCG) dye binding method 05/20/2023 07:19:18 3.7 3.5-5.2 (G/DL) Final Bilirubin.total [Mass/volume] in Serum or Plasma 05/20/2023 07:19:18 0.7 0.0-1.2 (MG/DL) Final Aspartate aminotransferase [Enzymatic activity/volume] in Serum or Plasma 05/20/2023 07:19:18 28 0-32 (UNIT/L) Final Alanine aminotransferase [Enzymatic activity/volume] in Serum or Plasma 05/20/2023 07:19:18 26 0-33 (UNIT/L) Final Alkaline phosphatase [Enzymatic activity/volume] in Serum or Plasma 05/20/2023 07:19:18 109 35-115 (UNIT/L) Final Performing Location [facility] [employer] [address] [place] [address]
--- OUTSIDE RECORDS SUMMARY | 2023-10-17 00:48 | External Medical Summary ---
Author Name Unknown Address Unknown Organization [facility] bsection:[facility] [address] [place] [address] Laboratory Report Ordering Provider Test Date Status CarringtonAlexmery 05/20/2023 11:23:00 Final Observation Date Value Abnormality Reference (Units ) Status Glucose [Mass/volume] in Arterial blood 05/20/2023 11:23:04 244 Above high normal 50-99 (MG/DL) Final Notified RN\R\Meter: [id number]\R\Sole Seamer: [id number] Adelita Reyes
The Reference Range listed is for fasting blood Glucose only. Performing Location [facility] [address] [place]
--- OUTSIDE RECORDS SUMMARY | 2023-10-17 00:49 | External Medical Summary ---
Author Name Unknown Address Unknown Organization [facility] [employer] [facility] [employer] [facility] [address] [facility] [place] [address] Laboratory Report Ordering Provider Test Date Status Lexi Shultz 05/19/2023 06:14:00 Final Observation Date Value Abnormality Reference (Units ) Status Leukocytes [#/volume] in Blood by Automated count 05/19/2023 06:34:11 8.97 4.00-10.40 (K/UL) Final Erythrocytes [#/volume] in Blood by Automated count 05/19/2023 06:34:11 5.11 Above high normal 3.90-5.00 (M/UL) Final Hemoglobin [Mass/volume] in Blood 05/19/2023 06:34:11 14.2 11.7-15.0 (G/DL) Final Hematocrit [Volume Fraction] of Blood by Automated count 05/19/2023 06:34:11 44.4 Above high normal 35.0-44.0 (%) Final MCV [Entitic volume] by Automated count 05/19/2023 06:34:11 86.9 81.0-96.0 (fL) Final MCH [Entitic mass] by Automated count 05/19/2023 06:34:11 27.8 Below low normal 28.0-33.0 (pg) Final MCHC [Mass/volume] by Automated count 05/19/2023 06:34:11 32.0 32.0-36.0 (G/DL) Final Erythrocyte distribution width [Ratio] by Automated count 05/19/2023 06:34:11 14.6 Above high normal 11.5-14.2 (%) Final Platelets [#/volume] in Blood by Automated count 05/19/2023 06:34:11 363 Above high normal 150-350 (K/UL) Final Erythrocyte distribution width [Entitic volume] by Automated count 05/19/2023 06:34:11 47 Final Platelet mean volume [Entitic volume] in Blood by Automated count 05/19/2023 06:34:11 9.9 9.0-12.2 (fL) Final Nucleated erythrocytes/100 cells in Bone marrow by Manual count 05/19/2023 06:34:11 0 (/100 WBCS) Final Nucleated erythrocytes [#/volume] in Blood by Automated count 05/19/2023 06:34:11 0.00 (K/UL) Final Performing Location [facility] [employer] [facility] [address] [address]
--- OUTSIDE RECORDS SUMMARY | 2023-10-17 00:49 | External Medical Summary ---
Author Name Unknown Address Unknown Organization [facility] [employer] [facility] [employer] [facility] [address] [place] [address] [place] [address] Laboratory Report Ordering Provider Test Date Status Alex Shultzmery 05/18/2023 16:34:00 Final Observation Date Value Abnormality Reference (Units ) Status Iron [Mass/volume] in Serum or Plasma 05/18/2023 17:42:58 71 33-151 (MCG/DL) Final Transferrin [Mass/volume] in Serum or Plasma 05/18/2023 17:42:58 333.0 200.0-360.0 (MG/DL) Final Iron binding capacity.unsaturated [Mass/volume] in Serum or Plasma 05/18/2023 17:42:58 393 236-425 (UG/DL) Final Iron saturation [Mass Fraction] in Serum or Plasma 05/18/2023 17:42:58 18 15-55 (%) Final Performing Location [facility] [employer] [facility] [address] [place] [address] [place] [address]
--- OUTSIDE RECORDS SUMMARY | 2023-10-17 00:49 | External Medical Summary ---
Author Name Unknown Address Unknown Organization [facility]section:[facility] [address] [place] Laboratory Report Ordering Provider Test Date Status Axel Hicks 05/17/2023 07:45:00 Final Observation Date Value Abnormality Reference (Units ) Status Glucose [Mass/volume] in Arterial blood 05/17/2023 07:45:57 161 Above high normal 50-99 (MG/DL) Final Meter: [id number]\R\Operat or: [id number] Jersey Shah
The Reference Range listed is for fasting blood Glucose only. Performing Location [facility] [address] [place] [address]
--- OUTSIDE RECORDS SUMMARY | 2023-10-17 00:49 | External Medical Summary ---
Author Name Unknown Address Unknown Organization [facility] [address] [place] Laboratory Report Ordering Provider Test Date Status Axel Hicks 05/16/2023 20:23:00 Final Observation Date Value Abnormality Reference (Units ) Status Glucose [Mass/volume] in Arterial blood 05/16/2023 20:23:26 196 Above high normal 50-99 (MG/DL) Final Meter: [id number]\R\Operat or: [id number] Amando Hodge
The Reference Range listed is for fasting blood Glucose only. Performing Location [facility] [address] [place]
--- OUTSIDE RECORDS SUMMARY | 2023-10-17 00:49 | External Medical Summary ---
Author Name Unknown Address Unknown Organization [facility] [employer] Chemistry:[facility] [employer] [facility] [address] [place] [address] [place] [address] Laboratory Report Ordering Provider Test Date Status Lexi Shultz 05/19/2023 06:14:00 Final Observation Date Value Abnormality Reference (Units ) Status Glucose [Mass/volume] in Serum or Plasma 05/19/2023 07:00:16 139 Above high normal 74-109 (MG/DL) Final Urea nitrogen [Mass/volume] in Serum or Plasma 05/19/2023 07:00:16 18 6-23 (MG/DL) Final Creatinine [Mass/volume] in Serum or Plasma 05/19/2023 07:00:16 1.24 Above high normal 0.60-1.00 (MG/DL) Final GLOMERULAR FILTRATION RATE/1.73 SQ M.PREDICTED:ARVRAT:PT:SER /PLAS/BLD:QN:CREATININE AND CYSTATIN C-BASED FORMULA (CKD-EPI 2020) 05/19/2023 07:00:16 43 Below low normal >=60 (ML/MIN/1.73 M2) Final Sodium [Moles/volume] in Serum or Plasma 05/19/2023 07:00:16 143 136-145 (MMOL/L) Final Potassium [Moles/volume] in Serum or Plasma 05/19/2023 07:00:16 4.2 3.5-5.1 (MMOL/L) Final Chloride [Moles/volume] in Serum or Plasma 05/19/2023 07:00:16 106 98-107 (MMOL/L) Final Carbon dioxide, total [Moles/volume] in Serum or Plasma 05/19/2023 07:00:16 23 22-29 (MMOL/L) Final Anion gap 3 in Serum or Plasma 05/19/2023 07:00:16 14 5-14 (MMOL/L) Final Calcium [Mass/volume] in Serum or Plasma 05/19/2023 07:00:16 10.0 8.4-10.2 (MG/DL) Final Protein [Mass/volume] in Serum or Plasma 05/19/2023 07:00:16 7.8 6.4-8.3 (G/DL) Final Albumin [Mass/volume] in Serum or Plasma by Bromocresol green (BCG) dye binding method 05/19/2023 07:00:16 4.0 3.5-5.2 (G/DL) Final Bilirubin.total [Mass/volume] in Serum or Plasma 05/19/2023 07:00:16 0.7 0.0-1.2 (MG/DL) Final Aspartate aminotransferase [Enzymatic activity/volume] in Serum or Plasma 05/19/2023 07:00:16 29 0-32 (UNIT/L) Final Alanine aminotransferase [Enzymatic activity/volume] in Serum or Plasma 05/19/2023 07:00:16 30 0-33 (UNIT/L) Final Alkaline phosphatase [Enzymatic activity/volume] in Serum or Plasma 05/19/2023 07:00:16 116 Above high normal 35-115 (UNIT/L) Final Performing Location [facility] [employer] Hog Ringer ry [address] [address]
--- OUTSIDE RECORDS SUMMARY | 2023-10-17 00:49 | External Medical Summary ---
Author Name Unknown Address Unknown Organization [facility] bsection:[facility] [address] [place] Laboratory Report Ordering Provider Test Date Status CarringtonAlexmery 05/18/2023 16:20:00 Final Observation Date Value Abnormality Reference (Units ) Status Glucose [Mass/volume] in Arterial blood 05/18/2023 16:20:19 121 Above high normal 50-99 (MG/DL) Final Notified RN\R\Meter: [id number]\R\Specialist Physician: [id number] Sagar Diaz
The Reference Range listed is for fasting blood Glucose only. Performing Location [facility] [address] [place] Rucker3
--- OUTSIDE RECORDS SUMMARY | 2023-10-17 00:49 | External Medical Summary ---
Author Name Unknown Address Unknown Organization [facility] Sub[facility] [address] [place] Rucker[address] Laboratory Report Ordering Provider Test Date Status Marc Guaman JR 05/16/2023 15:40:00 Final Observation Date Value Abnormality Reference (Units ) Status Final 05/18/2023 15:40:03 Rare Mixed skin alessandro Final GS 05/17/2023 10:42:26 No polymorphonuclear cells seen.
No Bacteria seen Final Performing Location [facility] [address] [place] Rucker[address]
--- OUTSIDE RECORDS SUMMARY | 2023-10-17 00:49 | External Medical Summary ---
Author Name Unknown Address Unknown Organization [facility] [employer] Chemistry:[facility] [employer] [facility] [address] [place] [address] [place] [address] Laboratory Report Ordering Provider Test Date Status Lexi Shultz 05/18/2023 16:34:00 Final Observation Date Value Abnormality Reference (Units ) Status C reactive protein [Mass/volume] in Serum or Plasma 05/18/2023 17:42:58 <0.30 <=0.49 (MG/DL) Final Performing Location [facility] [employer] Human Performance Professor ry [address] [place] [address] [place] [id number]
--- OUTSIDE RECORDS SUMMARY | 2023-10-17 00:49 | External Medical Summary ---
Author Name Unknown Address Unknown Organization [facility] bsection:[facility] [address] [place] Laboratory Report Ordering Provider Test Date Status Axel Hicks 05/18/2023 07:28:00 Final Observation Date Value Abnormality Reference (Units ) Status Glucose [Mass/volume] in Arterial blood 05/18/2023 07:28:17 135 Above high normal 50-99 (MG/DL) Final Notified RN\R\Meter: [id number]\R\Daycare Provider: [id number] Sagar Diaz
The Reference Range listed is for fasting blood Glucose only. Performing Location [facility] [address] [place] Rucker3
--- OUTSIDE RECORDS SUMMARY | 2023-10-17 00:49 | External Medical Summary ---
Author Name Unknown Address Unknown Organization [facility] [employer] Chemistry:[facility] [employer] [facility] [address] [place] [address] [place] [address] Laboratory Report Ordering Provider Test Date Status Lexi Shultz 05/18/2023 16:34:00 Final Observation Date Value Abnormality Reference (Units ) Status Natriuretic peptide.B prohormone N-Terminal [Mass/volume] in Blood by Immunoassay 05/18/2023 17:42:58 119 <=449 (PG/ML) Final Performing Location [facility] [employer] Pharmaceutical Officer ry [address] [place] [address] [place] [address]
--- OUTSIDE RECORDS SUMMARY | 2023-10-17 00:49 | External Medical Summary ---
Author Name Unknown Address Unknown Organization [facility] bsection:[facility] [address] [place] Rucker[address] Laboratory Report Ordering Provider Test Date Status CarringtonAlex wickmery 05/19/2023 08:03:00 Final Observation Date Value Abnormality Reference (Units ) Status Glucose [Mass/volume] in Arterial blood 05/19/2023 08:03:44 151 Above high normal 50-99 (MG/DL) Final Notified RN\R\Meter: [id number]\R\Claim Review Medical Director: [id number] [place] Jada A
The Reference Range listed is for fasting blood Glucose only. Performing Location [facility] [address] [place] Rucker3
--- OUTSIDE RECORDS SUMMARY | 2023-10-17 00:49 | External Medical Summary ---
Author Name Unknown Address Unknown Organization [facility] [employer] Chemistry:[facility] [employer] [facility] [address] [place] [address] [place] [address] Laboratory Report Ordering Provider Test Date Status Lexi Shultz 05/18/2023 16:34:00 Final Observation Date Value Abnormality Reference (Units ) Status Thyrotropin [Units/volume] in Serum or Plasma 05/18/2023 17:42:58 2.50 0.30-4.20 (uIU/mL) Final Performing Location [facility] [employer] Motor Mechanic ry [address] [place] [address]
--- OUTSIDE RECORDS SUMMARY | 2023-10-17 00:49 | External Medical Summary ---
Author Name Unknown Address Unknown Organization [facility] bsection:[facility] [address] [place] Rucker3 Laboratory Report Ordering Provider Test Date Status CarringtonAlex wickmery 05/19/2023 16:20:00 Final Observation Date Value Abnormality Reference (Units ) Status Glucose [Mass/volume] in Arterial blood 05/19/2023 16:20:59 187 Above high normal 50-99 (MG/DL) Final Notified RN\R\Meter: [id number]\R\[place] Attendant: [id number] [place] Jada A
The Reference Range listed is for fasting blood Glucose only. Performing Location [facility] [address] [place] Rucker3
--- OUTSIDE RECORDS SUMMARY | 2023-10-17 00:49 | External Medical Summary ---
Author Name Unknown Address Unknown Organization [facility] [address] [place] Laboratory Report Ordering Provider Test Date Status Axel Hicks 05/17/2023 20:55:00 Final Observation Date Value Abnormality Reference (Units ) Status Glucose [Mass/volume] in Arterial blood 05/17/2023 20:55:24 145 Above high normal 50-99 (MG/DL) Final Notified RN\R\Meter: [id number]\R\Awning Hanger Supervisor: [id number] Rogelio Morris
The Reference Range listed is for fasting blood Glucose only. Performing Location [facility] [address] [place] Rucker[address]
--- OUTSIDE RECORDS SUMMARY | 2023-10-17 00:49 | External Medical Summary ---
Author Name Unknown Address Unknown Organization [facility] [employer] Chemistry:[facility] [employer] Chemistry [address] [place] [address] [place] [address] Laboratory Report Ordering Provider Test Date Status Lexi Shultz 05/18/2023 16:34:00 Final Observation Date Value Abnormality Reference (Units ) Status Cobalamin (Vitamin B12) [Mass/volume] in Serum or Plasma 05/18/2023 18:00:58 >2000 Above high normal 211-946 (PG/ML) Final Performing Location [facility] [employer] Sourcing Specialist ry [address] [place] [address] [place] [address]
--- OUTSIDE RECORDS SUMMARY | 2023-10-17 00:49 | External Medical Summary ---
Author Name Unknown Address Unknown Organization [facility] bsection:[facility] [address] [place] Rucker3 Laboratory Report Ordering Provider Test Date Status Axel Hicks 05/17/2023 15:50:00 Final Observation Date Value Abnormality Reference (Units ) Status Glucose [Mass/volume] in Arterial blood 05/17/2023 15:50:02 158 Above high normal 50-99 (MG/DL) Final Notified RN\R\Meter: [id number]\R\Dry Chain Worker: [id number] Adelita Reyes
The Reference Range listed is for fasting blood Glucose only. Performing Location [facility] [address] [place] Rucker3
--- OUTSIDE RECORDS SUMMARY | 2023-10-17 00:49 | External Medical Summary ---
Author Name Unknown Address Unknown Organization [facility] [employer] Chemistry:[facility] [employer] [facility] [address] [place] [address] [place] [address] Laboratory Report Ordering Provider Test Date Status Lexi Shultz 05/18/2023 16:34:00 Final Observation Date Value Abnormality Reference (Units ) Status Vitamin D+Metabolites [Mass/volume] in Serum or Plasma 05/18/2023 18:00:58 36 (NG/ML) Final Performing Location [facility] [employer] Payroll Processor ry [address] [place] [address] [place] [address]
--- OUTSIDE RECORDS SUMMARY | 2023-10-17 00:49 | External Medical Summary ---
Author Name Unknown Address Unknown Organization [facility]section:[facility] [address] [place] Rucker3 Laboratory Report Ordering Provider Test Date Status Axel Hicks 05/16/2023 08:16:00 Final Observation Date Value Abnormality Reference (Units ) Status Glucose [Mass/volume] in Arterial blood 05/16/2023 08:16:00 186 Above high normal 50-99 (MG/DL) Final Notified RN\R\Meter: [id number]\R\Physiatrist: [id number] Adelita Reyes
The Reference Range listed is for fasting blood Glucose only. Performing Location [facility] [address] [place] Rucker3
--- OUTSIDE RECORDS SUMMARY | 2023-10-17 00:49 | External Medical Summary ---
Author Name Unknown Address Unknown Organization [facility] bsection:[facility] [address] [place] Rucker[address] Laboratory Report Ordering Provider Test Date Status Axel Hicks 05/16/2023 11:25:00 Final Observation Date Value Abnormality Reference (Units ) Status Glucose [Mass/volume] in Arterial blood 05/16/2023 11:25:25 210 Above high normal 50-99 (MG/DL) Final Notified RN\R\Meter: [id number]\R\Sterile Supply Technician: [id number] Misti Butler
The Reference Range listed is for fasting blood Glucose only. Performing Location [facility] [address] [place] Rucker3
--- OUTSIDE RECORDS SUMMARY | 2023-10-17 00:49 | External Medical Summary ---
Author Name Unknown Address Unknown Organization [facility]section:[facility] [address] [place] Laboratory Report Ordering Provider Test Date Status CarringtonAlex wickmery 05/18/2023 20:42:00 Final Observation Date Value Abnormality Reference (Units ) Status Glucose [Mass/volume] in Arterial blood 05/18/2023 20:42:05 214 Above high normal 50-99 (MG/DL) Final Meter: [id number]\R\Operat or: [id number] [facility]
The Reference Range listed is for fasting blood Glucose only. Performing Location [facility] [address] [place]
--- OUTSIDE RECORDS SUMMARY | 2023-10-17 00:49 | External Medical Summary ---
Author Name Unknown Address Unknown Organization [facility] [employer] Chemistry:[facility] [employer] [facility] [address] [place] [address] [place] [address] Laboratory Report Ordering Provider Test Date Status [place] 05/16/2023 05:50:00 Final Observation Date Value Abnormality Reference (Units ) Status Glucose [Mass/volume] in Serum or Plasma 05/16/2023 06:34:43 143 Above high normal 74-109 (MG/DL) Final Urea nitrogen [Mass/volume] in Serum or Plasma 05/16/2023 06:34:43 15 6-23 (MG/DL) Final Creatinine [Mass/volume] in Serum or Plasma 05/16/2023 06:34:43 1.03 Above high normal 0.60-1.00 (MG/DL) Final GLOMERULAR FILTRATION RATE/1.73 SQ M.PREDICTED:ARVRAT:PT :SER/PLAS/BLD:QN:CREA TININE AND CYSTATIN C-BASED FORMULA (CKD-EPI 2020) 05/16/2023 06:34:43 54 Below low normal >=60 (ML/MIN/1.73 M2) Final Sodium [Moles/volume] in Serum or Plasma 05/16/2023 06:34:43 142 136-145 (MMOL/L) Final Potassium [Moles/volume] in Serum or Plasma 05/16/2023 06:34:43 4.1 3.5-5.1 (MMOL/L) Final Chloride [Moles/volume] in Serum or Plasma 05/16/2023 06:34:43 106 98-107 (MMOL/L) Final Carbon dioxide, total [Moles/volume] in Serum or Plasma 05/16/2023 06:34:43 21 Below low normal 22-29 (MMOL/L) Final Anion gap 3 in Serum or Plasma 05/16/2023 06:34:43 15 Above high normal 5-14 (MMOL/L) Final Calcium [Mass/volume] in Serum or Plasma 05/16/2023 06:34:43 9.0 8.4-10.2 (MG/DL) Final Performing Location [facility] [employer] Formal Service Waiter ry [address] [place] [address]
--- OUTSIDE RECORDS SUMMARY | 2023-10-17 00:49 | External Medical Summary ---
Author Name Unknown Address Unknown Organization [facility] [employer] Chemistry:[facility] [employer] [address] [place] [address] [place] [address] Laboratory Report Ordering Provider Test Date Status Lexi Shultz 05/19/2023 06:14:00 Final Observation Date Value Abnormality Reference (Units ) Status Magnesium [Mass/volume] in Serum or Plasma 05/19/2023 07:00:16 1.8 1.6-2.6 (MG/DL) Final Performing Location [facility] [employer] Scheduling Manager ry [address] [place] [address] [place] [address]
--- OUTSIDE RECORDS SUMMARY | 2023-10-17 00:49 | External Medical Summary ---
Author Name Unknown Address Unknown Organization [facility] bsection:[facility] [address] [place] Laboratory Report Ordering Provider Test Date Status CarringtonAlex wickmery 05/18/2023 11:19:00 Final Observation Date Value Abnormality Reference (Units ) Status Glucose [Mass/volume] in Arterial blood 05/18/2023 11:19:32 210 Above high normal 50-99 (MG/DL) Final Meter: [id number]\R\Operat or: [id number] Sagar Diaz
The Reference Range listed is for fasting blood Glucose only. Performing Location [facility] [address] [place] Rucker3
--- OUTSIDE RECORDS SUMMARY | 2023-10-17 00:49 | External Medical Summary ---
Author Name Unknown Address Unknown Organization [facility] [employer] Chemistry:[facility] [employer] [facility] [address] [place] [address] [place] [address] Laboratory Report Ordering Provider Test Date Status Lexi Shultz 05/18/2023 16:34:00 Final Observation Date Value Abnormality Reference (Units ) Status Phosphate [Mass/volume] in Serum or Plasma 05/18/2023 17:42:58 3.5 2.5-4.5 (MG/DL) Final Performing Location [facility] [employer] Industrial Photographer ry [address] [place] [address] [place] [address]
--- OUTSIDE RECORDS SUMMARY | 2023-10-17 00:49 | External Medical Summary ---
Author Name Unknown Address Unknown Organization [facility] [employer] Chemistry:[facility] [employer] [facility] [address] [place] [address] [place] [address] Laboratory Report Ordering Provider Test Date Status Lexi Shultz 05/18/2023 16:34:00 Final Observation Date Value Abnormality Reference (Units ) Status Magnesium [Mass/volume] in Serum or Plasma 05/18/2023 17:42:58 1.9 1.6-2.6 (MG/DL) Final Performing Location [facility] [employer] Runstitching Machine Operator ry [address] [place] [address] [place] [address]
--- OUTSIDE RECORDS SUMMARY | 2023-10-17 00:49 | External Medical Summary ---
Author Name Unknown Address Unknown Organization [facility] bsection:[facility] [address] [place] Laboratory Report Ordering Provider Test Date Status Axel Hicks 05/17/2023 11:45:00 Final Observation Date Value Abnormality Reference (Units ) Status Glucose [Mass/volume] in Arterial blood 05/17/2023 11:45:55 158 Above high normal 50-99 (MG/DL) Final Meter: [id number]\R\Operat or: [id number] Kassi Ro
The Reference Range listed is for fasting blood Glucose only. Performing Location [facility] [address] [place] Rucker3
--- OUTSIDE RECORDS SUMMARY | 2023-10-17 00:49 | External Medical Summary ---
Author Name Unknown Address Unknown Organization [facility] [address] [place] [address] [place] [address] Laboratory Report Ordering Provider Test Date Status Lexi Shultz 05/19/2023 06:14:00 Final Observation Date Value Abnormality Reference (Units ) Status Neut% 05/19/2023 06:34:11 54.4 (%) Final Lymphocytes/100 leukocytes in Blood by Automated count 05/19/2023 06:34:11 35.9 (%) Final Monocytes/100 leukocytes in Blood by Automated count 05/19/2023 06:34:11 6.0 (%) Final Eosinophils/100 leukocytes in Blood by Automated count 05/19/2023 06:34:11 2.0 (%) Final Basophils/100 leukocytes in Blood by Automated count 05/19/2023 06:34:11 1.1 (%) Final Immature granulocytes/100 leukocytes in Blood by Automated count 05/19/2023 06:34:11 0.6 (%) Final Neutrophils [#/volume] in Blood by Automated count 05/19/2023 06:34:11 4.88 2.00-7.70 (K/UL) Final Lymphocytes [#/volume] in Blood by Automated count 05/19/2023 06:34:11 3.22 1.00-3.40 (K/UL) Final Monocytes [#/volume] in Blood 05/19/2023 06:34:11 0.54 0.00-1.00 (K/UL) Final Eosinophils [#/volume] in Blood by Automated count 05/19/2023 06:34:11 0.18 0.00-0.50 (K/UL) Final Basophils [#/volume] in Blood by Automated count 05/19/2023 06:34:11 0.10 0.00-0.10 (K/UL) Final Immature granulocytes [Presence] in Blood by Automated count 05/19/2023 06:34:11 0.05 0.00-0.40 (K/UL) Final Performing Location [facility] [address] [address]
--- OUTSIDE RECORDS SUMMARY | 2023-10-17 00:49 | External Medical Summary ---
Author Name Unknown Address Unknown Organization [facility] [address] [place] Rucker[address] Laboratory Report Ordering Provider Test Date Status CarringtonAlex wickmery 05/19/2023 12:08:00 Final Observation Date Value Abnormality Reference (Units ) Status Glucose [Mass/volume] in Arterial blood 05/19/2023 12:08:42 161 Above high normal 50-99 (MG/DL) Final Notified RN\R\Meter: [id number]\R\Reimbursement Consultant: [id number] [place] Jada A
The Reference Range listed is for fasting blood Glucose only. Performing Location [facility] [address] [place] Rucker[address]
--- OUTSIDE RECORDS SUMMARY | 2023-10-17 00:50 | External Medical Summary ---
Author Name Unknown Address Unknown Organization [facility] [address] [place] [address] [place] [address] Laboratory Report Ordering Provider Test Date Status Cosmo Kilgore 05/15/2023 16:41:00 Final Observation Date Value Abnormality Reference (Units ) Status Final 05/20/2023 20:02:06 No growth at 5 days Final Performing Location [facility] on [address] [place] [address] [place] [address]
--- OUTSIDE RECORDS SUMMARY | 2023-10-17 00:50 | External Medical Summary ---
Author Name Unknown Address Unknown Organization [facility] bsection:[facility] [address] [place] Rucker3 Laboratory Report Ordering Provider Test Date Status Zenon Wellsjacqueline 05/15/2023 11:59:00 Final Observation Date Value Abnormality Reference (Units ) Status Glucose [Mass/volume] in Arterial blood 05/15/2023 11:59:56 165 Above high normal 50-99 (MG/DL) Final Meter: [id number]\R\Operat or: [id number] Radha Carrizales
The Reference Range listed is for fasting blood Glucose only. Performing Location [facility] [address] [place] Rucker3
--- OUTSIDE RECORDS SUMMARY | 2023-10-17 00:50 | External Medical Summary ---
Author Name Unknown Address Unknown Organization [facility] [employer] Chemistry:[facility] [employer] Chemistry [address] [place] [address] [place] [address] Laboratory Report Ordering Provider Test Date Status Yovanny Hollins 05/14/2023 05:04:00 Final Observation Date Value Abnormality Reference (Units ) Status Glucose [Mass/volume] in Serum or Plasma 05/14/2023 06:02:31 177 Above high normal 74-109 (MG/DL) Final Urea nitrogen [Mass/volume] in Serum or Plasma 05/14/2023 06:02:31 23 6-23 (MG/DL) Final Creatinine [Mass/volume] in Serum or Plasma 05/14/2023 06:02:31 1.01 Above high normal 0.60-1.00 (MG/DL) Final GLOMERULAR FILTRATION RATE/1.73 SQ M.PREDICTED:ARVRAT:PT :SER/PLAS/BLD:QN:CREA TININE AND CYSTATIN C-BASED FORMULA (CKD-EPI 2020) 05/14/2023 06:02:31 55 Below low normal >=60 (ML/MIN/1.73 M2) Final Sodium [Moles/volume] in Serum or Plasma 05/14/2023 06:02:31 143 136-145 (MMOL/L) Final Potassium [Moles/volume] in Serum or Plasma 05/14/2023 06:02:31 4.0 3.5-5.1 (MMOL/L) Final Chloride [Moles/volume] in Serum or Plasma 05/14/2023 06:02:31 108 Above high normal 98-107 (MMOL/L) Final Carbon dioxide, total [Moles/volume] in Serum or Plasma 05/14/2023 06:02:31 23 22-29 (MMOL/L) Final Anion gap 3 in Serum or Plasma 05/14/2023 06:02:31 12 5-14 (MMOL/L) Final Calcium [Mass/volume] in Serum or Plasma 05/14/2023 06:02:31 9.3 8.4-10.2 (MG/DL) Final Performing Location [facility] [employer] Soccer Referee ry [address] [address]
--- OUTSIDE RECORDS SUMMARY | 2023-10-17 00:50 | External Medical Summary ---
Author Name Unknown Address Unknown Organization [facility] [address] [place] Laboratory Report Ordering Provider Test Date Status [place] 05/14/2023 11:37:00 Final Observation Date Value Abnormality Reference (Units ) Status Glucose [Mass/volume] in Arterial blood 05/14/2023 11:37:57 224 Above high normal 50-99 (MG/DL) Final Meter: [id number]\R\Operat or: [id number] Tae Shrestha
The Reference Range listed is for fasting blood Glucose only. Performing Location [facility] [address] [place] Rucker[address]
--- OUTSIDE RECORDS SUMMARY | 2023-10-17 00:50 | External Medical Summary ---
Author Name Unknown Address Unknown Organization [facility] [address] [place] Rucker[address] Laboratory Report Ordering Provider Test Date Status [place] 05/14/2023 15:47:00 Final Observation Date Value Abnormality Reference (Units ) Status Glucose [Mass/volume] in Arterial blood 05/14/2023 15:47:12 113 Above high normal 50-99 (MG/DL) Final Notified RN\R\Meter: [id number]\R\Car Manager: [id number] Adelita Reyes
The Reference Range listed is for fasting blood Glucose only. Performing Location [facility] [address] [place] Rucker[address]
--- OUTSIDE RECORDS SUMMARY | 2023-10-17 00:50 | External Medical Summary ---
Author Name Unknown Address Unknown Organization [facility] [address] [place] Laboratory Report Ordering Provider Test Date Status Zenon Wellsjacqueline 05/15/2023 21:04:00 Final Observation Date Value Abnormality Reference (Units ) Status Glucose [Mass/volume] in Arterial blood 05/15/2023 21:04:32 174 Above high normal 50-99 (MG/DL) Final Meter: [id number]\R\Operat or: [id number] Prince Erin
The Reference Range listed is for fasting blood Glucose only. Performing Location [facility] [address] [place] [facility]
--- OUTSIDE RECORDS SUMMARY | 2023-10-17 00:50 | External Medical Summary ---
Author Name Unknown Address Unknown Organization [facility] [address] [place] Laboratory Report Ordering Provider Test Date Status Zenon Wellsjacqueline 05/15/2023 15:58:00 Final Observation Date Value Abnormality Reference (Units ) Status Glucose [Mass/volume] in Arterial blood 05/15/2023 15:58:12 157 Above high normal 50-99 (MG/DL) Final Meter: [id number]\R\Operat or: [id number] Radha Carrizales
The Reference Range listed is for fasting blood Glucose only. Performing Location [facility] [address] [place]
--- OUTSIDE RECORDS SUMMARY | 2023-10-17 00:50 | External Medical Summary ---
Author Name Unknown Address Unknown Organization [facility] [address] [place] Laboratory Report Ordering Provider Test Date Status George Wells 05/14/2023 08:04:00 Final Observation Date Value Abnormality Reference (Units ) Status Glucose [Mass/volume] in Arterial blood 05/14/2023 08:04:18 190 Above high normal 50-99 (MG/DL) Final Meter: [id number]\R\Operat or: [id number] Tae Shrestha
The Reference Range listed is for fasting blood Glucose only. Performing Location [facility] [address] [place]
--- OUTSIDE RECORDS SUMMARY | 2023-10-17 00:50 | External Medical Summary ---
Author Name Unknown Address Unknown Organization [facility] [address] [place] Laboratory Report Ordering Provider Test Date Status Yovanny Hollins 05/13/2023 21:22:00 Final Observation Date Value Abnormality Reference (Units ) Status Glucose [Mass/volume] in Arterial blood 05/13/2023 21:22:31 206 Above high normal 50-99 (MG/DL) Final Notified RN\R\Meter: [id number]\R\Town Administrator: [id number] Bebe Castillo
The Reference Range listed is for fasting blood Glucose only. Performing Location [facility] [address] [place]
--- OUTSIDE RECORDS SUMMARY | 2023-10-17 00:50 | External Medical Summary ---
Author Name Unknown Address Unknown Organization [facility] [address] [place] Laboratory Report Ordering Provider Test Date Status George Wells 05/15/2023 08:02:00 Final Observation Date Value Abnormality Reference (Units ) Status Glucose [Mass/volume] in Arterial blood 05/15/2023 08:02:32 188 Above high normal 50-99 (MG/DL) Final Notified RN\R\Meter: [id number]\R\Oyster Harvester: [id number] Adelita Reyes
The Reference Range listed is for fasting blood Glucose only. Performing Location [facility] [address] [place]
--- OUTSIDE RECORDS SUMMARY | 2023-10-17 00:50 | External Medical Summary ---
Author Name Unknown Address Unknown Organization [facility] [address] [place] [address] [place] [address] Laboratory Report Ordering Provider Test Date Status Yovanny Hollins 05/14/2023 05:04:00 Final Observation Date Value Abnormality Reference (Units ) Status Leukocytes [#/volume] in Blood by Automated count 05/14/2023 05:44:53 6.52 4.00-10.40 (K/UL) Final Erythrocytes [#/volume] in Blood by Automated count 05/14/2023 05:44:53 4.36 3.90-5.00 (M/UL) Final Hemoglobin [Mass/volume] in Blood 05/14/2023 05:44:53 12.2 11.7-15.0 (G/DL) Final Hematocrit [Volume Fraction] of Blood by Automated count 05/14/2023 05:44:53 38.5 35.0-44.0 (%) Final MCV [Entitic volume] by Automated count 05/14/2023 05:44:53 88.3 81.0-96.0 (fL) Final MCH [Entitic mass] by Automated count 05/14/2023 05:44:53 28.0 28.0-33.0 (pg) Final MCHC [Mass/volume] by Automated count 05/14/2023 05:44:53 31.7 Below low normal 32.0-36.0 (G/DL) Final Erythrocyte distribution width [Ratio] by Automated count 05/14/2023 05:44:53 14.6 Above high normal 11.5-14.2 (%) Final Erythrocyte distribution width [Entitic volume] by Automated count 05/14/2023 05:44:53 47 Final Platelets [#/volume] in Blood by Automated count 05/14/2023 05:44:53 245 150-350 (K/UL) Final Platelet mean volume [Entitic volume] in Blood by Automated count 05/14/2023 05:44:53 10.1 9.0-12.2 (fL) Final Nucleated erythrocytes/100 cells in Bone marrow by Manual count 05/14/2023 05:44:53 0 (/100 WBCS) Final Nucleated erythrocytes [#/volume] in Blood by Automated count 05/14/2023 05:44:53 0.00 (K/UL) Final Performing Location [facility] [address] [address]
--- OUTSIDE RECORDS SUMMARY | 2023-10-17 00:50 | External Medical Summary ---
Author Name Unknown Address Unknown Organization [facility] [address] [place] [address] [place] [address] Laboratory Report Ordering Provider Test Date Status George Wells 05/16/2023 05:50:00 Final Observation Date Value Abnormality Reference (Units ) Status Leukocytes [#/volume] in Blood by Automated count 05/16/2023 06:11:26 6.82 4.00-10.40 (K/UL) Final Erythrocytes [#/volume] in Blood by Automated count 05/16/2023 06:11:26 4.48 3.90-5.00 (M/UL) Final Hemoglobin [Mass/volume] in Blood 05/16/2023 06:11:26 12.4 11.7-15.0 (G/DL) Final Hematocrit [Volume Fraction] of Blood by Automated count 05/16/2023 06:11:26 39.3 35.0-44.0 (%) Final MCV [Entitic volume] by Automated count 05/16/2023 06:11:26 87.7 81.0-96.0 (fL) Final MCH [Entitic mass] by Automated count 05/16/2023 06:11:26 27.7 Below low normal 28.0-33.0 (pg) Final MCHC [Mass/volume] by Automated count 05/16/2023 06:11:26 31.6 Below low normal 32.0-36.0 (G/DL) Final Erythrocyte distribution width [Ratio] by Automated count 05/16/2023 06:11:26 14.6 Above high normal 11.5-14.2 (%) Final Platelets [#/volume] in Blood by Automated count 05/16/2023 06:11:26 273 150-350 (K/UL) Final Erythrocyte distribution width [Entitic volume] by Automated count 05/16/2023 06:11:26 47 Final Platelet mean volume [Entitic volume] in Blood by Automated count 05/16/2023 06:11:26 9.7 9.0-12.2 (fL) Final Nucleated erythrocytes/100 cells in Bone marrow by Manual count 05/16/2023 06:11:26 0 (/100 WBCS) Final Nucleated erythrocytes [#/volume] in Blood by Automated count 05/16/2023 06:11:26 0.00 (K/UL) Final Performing Location [facility] [address] [address]
--- OUTSIDE RECORDS SUMMARY | 2023-10-17 00:50 | External Medical Summary ---
Author Name Unknown Address Unknown Organization [facility] [address] [place] Laboratory Report Ordering Provider Test Date Status Zenon Wellsjacqueline 05/14/2023 20:41:00 Final Observation Date Value Abnormality Reference (Units ) Status Glucose [Mass/volume] in Arterial blood 05/14/2023 20:41:02 143 Above high normal 50-99 (MG/DL) Final Meter: [id number]\R\Operat or: [id number] Amando Hodge
The Reference Range listed is for fasting blood Glucose only. Performing Location [facility] [address] [place]
--- OUTSIDE RECORDS SUMMARY | 2023-10-17 00:50 | External Medical Summary ---
Author Name Unknown Address Unknown Organization [facility] [address] [place] [address] [place] [address] Laboratory Report Ordering Provider Test Date Status Cosmo Kilgore 05/15/2023 16:36:00 Final Observation Date Value Abnormality Reference (Units ) Status Final 05/20/2023 20:02:05 No growth at 5 days Final Performing Location [facility] [address] [place] [address] [place] [id number]
[2023-10-17] MEDS: GABAPENTIN 400 MG CAP PO SCH ×4 (00:51→20:14)
[2023-10-17] MEDS: OMEGA-3 (PURIFIED FISH OIL) 1 GM CAP PO SCH ×3 (00:51→20:14)
[2023-10-17] MEDS: APIXABAN 5 MG TABLET PO SCH ×3 (00:51→20:13)
--- OUTSIDE RECORDS SUMMARY | 2023-10-17 00:51 | External Medical Summary ---
Author Name Unknown Address Unknown Organization [facility] [address] [place] [address] [place] [address] Laboratory Report Ordering Provider Test Date Status Yovanny Hollins 05/13/2023 20:22:00 Final Observation Date Value Abnormality Reference (Units ) Status Neut% 05/13/2023 21:06:38 54.7 (%) Final Lymphocytes/100 leukocytes in Blood by Automated count 05/13/2023 21:06:38 36.0 (%) Final Monocytes/100 leukocytes in Blood by Automated count 05/13/2023 21:06:38 6.1 (%) Final Eosinophils/100 leukocytes in Blood by Automated count 05/13/2023 21:06:38 1.3 (%) Final Basophils/100 leukocytes in Blood by Automated count 05/13/2023 21:06:38 1.2 (%) Final Immature granulocytes/100 leukocytes in Blood by Automated count 05/13/2023 21:06:38 0.7 (%) Final Neutrophils [#/volume] in Blood by Automated count 05/13/2023 21:06:38 3.73 2.00-7.70 (K/UL) Final Lymphocytes [#/volume] in Blood by Automated count 05/13/2023 21:06:38 2.46 1.00-3.40 (K/UL) Final Monocytes [#/volume] in Blood 05/13/2023 21:06:38 0.42 0.00-1.00 (K/UL) Final Eosinophils [#/volume] in Blood by Automated count 05/13/2023 21:06:38 0.09 0.00-0.50 (K/UL) Final Basophils [#/volume] in Blood by Automated count 05/13/2023 21:06:38 0.08 0.00-0.10 (K/UL) Final Immature granulocytes [Presence] in Blood by Automated count 05/13/2023 21:06:38 0.05 0.00-0.40 (K/UL) Final Performing Location [facility] [address] [place] [address]
--- OUTSIDE RECORDS SUMMARY | 2023-10-17 00:51 | External Medical Summary ---
Author Name Unknown Address Unknown Organization [facility] [address] [place] [address] Laboratory Report Ordering Provider Test Date Status Yovanny Hollins 05/13/2023 20:22:00 Final Observation Date Value Abnormality Reference (Units ) Status Leukocytes [#/volume] in Blood by Automated count 05/13/2023 21:06:38 6.83 4.00-10.40 (K/UL) Final Erythrocytes [#/volume] in Blood by Automated count 05/13/2023 21:06:38 4.50 3.90-5.00 (M/UL) Final Hemoglobin [Mass/volume] in Blood 05/13/2023 21:06:38 12.6 11.7-15.0 (G/DL) Final Hematocrit [Volume Fraction] of Blood by Automated count 05/13/2023 21:06:38 39.0 35.0-44.0 (%) Final MCV [Entitic volume] by Automated count 05/13/2023 21:06:38 86.7 81.0-96.0 (fL) Final MCH [Entitic mass] by Automated count 05/13/2023 21:06:38 28.0 28.0-33.0 (pg) Final MCHC [Mass/volume] by Automated count 05/13/2023 21:06:38 32.3 32.0-36.0 (G/DL) Final Erythrocyte distribution width [Ratio] by Automated count 05/13/2023 21:06:38 14.6 Above high normal 11.5-14.2 (%) Final Platelets [#/volume] in Blood by Automated count 05/13/2023 21:06:38 273 150-350 (K/UL) Final Erythrocyte distribution width [Entitic volume] by Automated count 05/13/2023 21:06:38 47 Final Platelet mean volume [Entitic volume] in Blood by Automated count 05/13/2023 21:06:38 10.2 9.0-12.2 (fL) Final Nucleated erythrocytes/100 cells in Bone marrow by Manual count 05/13/2023 21:06:38 0 (/100 WBCS) Final Nucleated erythrocytes [#/volume] in Blood by Automated count 05/13/2023 21:06:38 0.00 (K/UL) Final Performing Location [facility] [address] [address]
--- OUTSIDE RECORDS SUMMARY | 2023-10-17 00:51 | External Medical Summary | Continuity of Care Document ---
Author Name Unknown Address [address] [place] [address] Phone Organization [facility] Address [address] [place] [address] Phone Support Name Relationship Address Phone Kandi Swanson Daughter [address] [place] [address] Moise Reed Primary Care Provider [address] [place] [address] Imer King Emergency Provider [address] [place] [address] Oleg Bernabe Admit Provider [address] [place] [address] Tae Aldana Emergency Provider [address] [place] [address] Enrique Sousa Admit Provider [address] [place] [address] Chief Complaint and Reason for Visit Chief Complaint Cellulitis,foot Diabetic Education L foot cellulitis, diabetic ulcer Reason for Visit Cellulitis of left f oot Fever Weakness Atrial fibrillation CKD (chronic kidney disease) Chronic anticoagulation Diabetes Diabetic foot ulcer [id number] GERD (gastroesophageal reflux disease) Hyperlipidemia Hypertension Hypothyroidism Triple vessel coronary artery disease Bacteremia Cellulitis of left foot Fever Atrial fibrillation CHF (congestive heart failure) CKD (chronic kidney disease) Diabetic foot ulcer Hypertension Hypothyroidism Allergies, Adverse Reactions, Alerts Allergen Type Severity Reaction Last Updated Verified Status meloxicam Allergy Unknown Confusion May 10, 2023 8:56am Yes Active metformin Allergy Unknown Diarrhea May 10, 2023 8:56am Yes Active Social History Smoking Status Status Start Date End Date Date of Observa tion Never smoked tobacco (finding) May 10, 2023 9:04am Observation Status Observation Response Date of Response Current Tobacco Use None April 12 5:43pm Current Tobacco Use None May 08 023 3:37pm Marital Status May 10, 2023 [...] tablet Disconti nued 25 MG PO TID 30 March 01, 2020 12:00am May 01, 2020 10:56a m Linagliptin (Tradjenta) 5 mg tablet Disconti nued 5 MG PO daily 30 April 30, 2020 12:00am May 01, 2020 [...] PO Every Night May 07, 2020 9:59am [facility] er 2019 3:49pm Glimepiride Disconti nued 4 MG PO Every Morning May 17, 2020 10:[facility] 11[facility]39a m administer with breakfast Lancets Disconti nued 0 .ROUTE .MEDSUPPLY 100 [facility] er 2019 12:00am May 23, 2021 7:48am As directed twice a day Dx E11.9 Blood Sugar Diagnostic (Onetouch Ultra Blue Test Strip) strip Disconti nued 0 .ROUTE .MEDSUPPLY 100 [facility] er 2019 12:00am May 23, 2021 7:48am As directed twice a day Dx E11.9 Metoprolol Tartrate (Lopressor) 25 mg tablet Disconti nued 25 MG PO Twice Daily 60 [facility] er 2019 11:58am January 22, 2021 9:46am Apixaban (Eliquis) 5 mg tablet Disconti nued 5 MG PO Twice Daily 60 [facility] er 2019 2:53pm ua 2020 4:43pm Insulin Degludec (Tresiba Flextouch U-100) 100 unit/mL (3 mL) insulin pen Disconti nued 25 UNIT SUBCUT daily September 13, 2020 9:44am [facility] er 2019 10:06a m continue increasing by 2 units every 3 days until blood sugars are in the 130 range Clopidogrel Bisulfate (Clopidogrel) 75 mg tablet Disconti nued 75 MG PO 3 times per week September 13, 2020 10:02am March 21, 2022 10:35a m Insulin Degludec (Tresiba Flextouch U-100) 100 unit/mL (3 mL) insulin pen Disconti nued 25 UNIT SUBCUT daily [facility] r 2019 10:06am [facility] er 2019 1:41pm 38 units daily Insulin Degludec (Tresiba Flextouch U-100) 200 unit/mL (3 mL) insulin pen Disconti nued 38 UNIT SUBCUT daily 2019 1:39pm March 21, 2022 10:35a m 38 units daily Linagliptin (Tradjenta) 5 mg tablet Disconti nued 5 MG PO daily 30 r 2019 9:41am 2020 7:44am Atorvastatin Calcium (Lipitor) 40 mg tablet Disconti nued 40 MG PO Every Night 2019 3:49pm April 30, 2021 9:00am Cholecalcifer ol (Vitamin D3) (Vitamin D3) 25 mcg (1,000 unit) capsule Active 25 MCG PO daily 30 2019 1:00am Omeprazole Disconti nued 20 MG PO Daily 2020 7:17am Novem er 2020 2:08pm Levothyroxine Sodium (Levothyroxin e) 75 mcg capsule Disconti nued 75 MCG PO daily 2020 [...] tablet Active 5 MG PO Twice Daily 60 2020 4:42pm Gabapentin Disconti nued 800 MG PO Every Night 2020 9:29am February 28, 2021 11:49a m Metoprolol Tartrate (Lopressor) 25 mg tablet Active 25 MG PO Twice Daily 60 January 22, 2021 9:46am Linagliptin (Tradjenta) 5 mg tablet Disconti nued 5 MG PO daily 30 February 20, 2021 7:04am April 17, 2021 [...] 2021 8:59am Lancets Disconti nued 0 .ROUTE .[facility] 100 May 23, 2021 7:48am Dece er 2020 10:44a m As directed twice a day Dx E11.9 Blood Sugar Diagnostic (Precision Q-I-D) strip Disconti nued 0 .ROUTE .[facility] 100 May 23, 2021 7:48am May 08, 2023 4:28pm As directed twice a day Dx E11.9 Insulin Degludec (Tresiba Flextouch U-200) 200 unit/mL (3 mL) insulin pen Disconti nued 38 UNIT SUBCUT Every Night June 07, 2021 10:04am [facility] er 2020 7:22am Levothyroxine Sodium (Levothyroxin e) 75 mcg capsule Active 75 MCG PO daily 90 June 18, 2021 12:04pm Gabapentin Disconti nued 800 MG PO .COMPLEX 60 July 01, 2021 1:17pm Decemb er 2020 10:54a m 800 mg PO take one tablet at lunchtime and one tablet at bedtime; Insulin Degludec (Tresiba Flextouch U-200) 200 unit/mL (3 mL) insulin pen Disconti nued 38 UNIT SUBCUT Every Night r 2020 7:22am Novua2021 11:53a m Semaglutide (Ozempic) 0.25 mg or 0.5 mg(2 mg/1.5 mL) pen injector Disconti nued 0.25 MG SUBCUT Every Week 1.5 0 Novembe r 2020 12:46pm May 02, 2022 7:56am Linagliptin (Tradjenta) 5 mg tablet Disconti nued 5 MG PO daily be r 2020 9:59am March 21, 2022 10:33a m Lancets Disconti nued 0 .ROUTE .MEDSUPPLY 100 [facility] r 2020 10:44am [facility] 2020 1:43pm As directed twice a day Dx E11.9 Gabapentin Disconti nued 800 MG PO .COMPLEX 180 [facility] r 2020 10:49am [facility] er 2020 1:43pm 800 mg PO take one tablet at lunchtime and one tablet at bedtime; Gabapentin Disconti nued 800 MG PO .COMPLEX 180 [facility] r 2020 1:43pm [facility] er 2020 9:46am 800 mg PO take one tablet at lunchtime and one tablet at bedtime; Lancets Disconti nued 0 .ROUTE .MEDSUPPLY 100 [facility] r 2020 1:43pm [facility] er 2021 11:27a m As [...] SUBCUT Every Night December 11, 2021 11:53am Novua y 2021 1:00pm Insulin Degludec (Tresiba Flextouch [...] 29, 2018 12:00am Octobe r 2017 9:00pm L.Acidoph,Par acasei, B.Lactis (Probiotic) 1 EACH Capsule Disconti nued 1 CAP PO Daily January 29, 2018 12:00am March 22, 2018 2:37pm Metformin Hcl Disconti nued 500 MG PO Twice Daily January 29, 2018 12:00am Octobe r 2017 7:06am Multivit Adult 50+ Disconti nued 1 TAB PO Daily January 29, 2018 12:00am March 22, 2018 2:37pm Swan-3/Dha/E pa/Fish Oil (Fish Oil Swan-3 Ec 1,200 Mg) 1 EACH Capsule.Dr Chrissie hernandezed 1 EACH PO Daily January 29, 2018 12:00am Octobe r 2017 8:57pm Omeprazole Disconti nued 20 MG PO Daily January 29, 2018 12:00am 2020 7:18am Potassium Gluconate Disconti nued 500 [...] 2022 12:00am June 05, 2022 12:13p m Swan-3 Fatty Acids (Swan-3) 1,000 MG capsule Disconti nued 1000 MG [...] Disconti nued 50 MG PO Twice Daily [facility] 2021 1:00am May 08, 2023 4:29pm Lidocaine (Lidoderm Patch) 700 MG adhesive patch,medicat ed Disconti nued 700 MG TOPIC Daily 30 2021 1:00am May 08, 2023 4:28pm Prednisone [...] UAL As Directed May 08, 2023 12:00am Krill/Swan-3 /Dha/Epa/Lipi ds (Swan-3 Krill Oil 500 Mg Sfgl) 1 EACH [...] 500 [facility] 12:[facility]am Oct[facility] r 2019 10:01a m Tramadol Hcl Disconti nued 50 MG [facility] Q8H [facility] 12:00am Octobe r 2019 12:02a m Doxycycline Hyclate Disconti nued 100 MG PO Twice Daily June 04, 2021 4:01pm [facility] er 2020 7:05am Azithromycin Disconti nued [...] Disconti nued 500 MG PO Twice Daily June 26, 2020 12:00am Octobe r 2019 10:00a m Linagliptin (Tradjenta) 5 mg tablet Disconti nued MG PO September 06, 2020 12:00am [facility] er 2019 9:43am Insulin Degludec [...] UNIT SUBCUT Every Night 9 2019 1:00am ua ry 2020 10:07a m Hydrocodone/A cetaminophen ([place] 5-325 Tablet) 5-325 mg tablet Disconti nued 1 TAB PO Twice Daily 60 30 r 2019 1:02am Docusate Sodium Disconti nued 100 MG PO Twice Daily November 19, 2020 1:00am February 28, 2021 11:13a m Hydrocodone/A cetaminophen ([place] 5-325 Tablet) 5-325 mg tablet Disconti nued 1 TAB PO Twice Daily 60 30 Denise 4th, 2021 Februa ry 3rd, 2021 1:02am Varicella-Zos ter Ge Vac,2 Of 2 (Shingrix Ge Antigen Component) 50 mcg suspension for reconstitutio n Disconti nued 50 MCG IM .COMPLEX 1 November 19, 2020 1:00am Januar y 2020 11:33a m 50 mcg IM [...] r 2020 1:00am May 08, 2023 4:25pm Swan-3 Fatty Acids (Fish Oil Concentrate) 1,000 mg capsule Disconti nued 1000 MG PO Twice Daily 60 Novembe r 2020 1:00am May 03, 2022 11:24a m Immunizations Immunization Event Date Not Given Reason Dose Number [employer] Lot Number Vaccine Information Statement (VIS) Detail SARS-COV-2 (COVID-19) MODERNA July 07, 2021 [id number] Fluzone QUAD August 16, 2017 Fluzone QUAD August 17, 2018 Influenza, high-dose, Quadrivalent October 18, 2020 [id number] Influenza, high-dose, Quadrivalent October 04, 2021 [id number] Pneumococcal 13-Valent Conjugate Vaccine September 08, 2018 Pneumococcal 23-Valent Polysaccharide Vaccine October 03, 2013 Procedures Procedure Date Performed Status Chest AP Portable April 12, 2023 6:01pm complete d Lower Extrem WO Cont LT April 12, 2023 7:39pm co mpleted Bone Scan Three Phase April 15, 2023 10:38am com pleted Blood Culture April 16, 2023 completed Gram Stain April 13, 2023 completed Wound Culture April 13, 2023 completed Foot 3 Views LT May 08, 2023 [...] Result Comment Performing Site White Blood Count April 15, 2023 5:54am 5.1 10^3/uL 4.1-10.2 [facility] [id number] [address] [facility] [place] [address] White Blood Count May 13, 2023 6:43am 5.9 10^3/uL 4.1-10.2 [facility] [id number] [address] [facility] [place] [address] Red Blood Count April 15, 2023 5:54am 4.44 10^6/uL 3.80-5.20 [facility] [id number] [address] [facility] [place] [address] Red Blood Count May 13, 2023 6:43am 4.40 10^6/uL 3.80-5.20 [facility] [id number] [address] [facility] [place] [address] Hemoglobin April 15, 2023 5:54am 12.5 g/dL 11.5-15.5 [facility] [id number] [address] [facility] [place] [address] Hemoglobin May 13, 2023 6:43am 12.7 g/dL 11.5-15.5 [facility] [id number] [address] [facility] [place] [address] Hematocrit April 15, 2023 5:54am 38.6 % 35-46 [facility] [id number] [address] [facility] [place] [address] Hematocrit May 13, 2023 6:43am 37.8 % 35-46 [facility] [id number] [address] [place] [address] Mean Corpuscular Volume April 15, 2023 5:54am 86.9 fL 82.0-98.0 [facility] [id number] [address] [place] [address] Mean Corpuscular Volume May 13, 2023 6:43am 85.9 fL 82.0-98.0 [facility] [id number] [address] [place] [address] Mean Corpuscular Hemoglobin April 15, 2023 5:54am 28.2 pg 27.0-34.0 [facility] [id number] [address] [place] [address] Mean Corpuscular Hemoglobin May 13, 2023 6:43am 28.9 pg 27.0-34.0 [facility] [id number] [address] [place] [address] Mean Corpuscular Hemoglobin Concent April 15, 2023 5:54am 32.4 g/dL 31.0-36.0 [facility] [id number] [address] [place] [address] Mean Corpuscular Hemoglobin Concent May 13, 2023 6:43am 33.6 g/dL 31.0-36.0 [facility] [id number] [address] [place] [address] RDW Standard Deviation April 15, 2023 5:54am 46.8 fL 37-49 [facility] [id number] [address] [place] [address] RDW Standard Deviation May 13, 2023 6:43am 46.1 fL 37-49 [facility] [id number] [address] [place] [address] RDW Coefficient of Variation April 15, 2023 5:54am 14.7 % 11.8-14.8 [facility] [id number] [address] [place] [address] RDW Coefficient of Variation May 13, 2023 6:43am 14.5 % 11.8-14.8 [facility] [id number] [address] [facility] [place] [address] Platelet Count April 15, 2023 5:54am 191 10^3/uL 150-360 [facility] [id number] [address] [facility] [place] [address] Platelet Count May 13, 2023 6:43am 232 10^3/uL 150-360 [facility] [id number] [address] [facility] [place] [address] Mean Platelet Volume April 15, 2023 5:54am 10.4 fL 9.4-12.3 [facility] [id number] [address] [facility] [place] [address] Mean Platelet Volume May 13, 2023 6:43am 10.3 fL 9.4-12.3 [facility] [id number] [address] [facility] [place] [address] Neutrophils (%) (Auto) April 15, 2023 5:54am 49.5 % 42-75 [facility] [id number] [address] [facility] [place] [address] Neutrophils (%) (Auto) May 13, 2023 6:43am 53.8 % 42-75 [facility] [id number] [address] [facility] [place] [address] Lymphocytes (%) (Auto) April 15, 2023 5:54am 33.1 % 14-42 [facility] [id number] [address] [facility] [place] [address] Lymphocytes (%) (Auto) May 13, 2023 6:43am 34.0 % 14-42 [facility] [id number] [address] [facility] [place] [address] Monocytes (%) (Auto) April 15, 2023 5:54am 10.7 % 4-13 [facility] [id number] [address] [facility] [place] [address] Monocytes (%) (Auto) May 13, 2023 6:43am 8.6 % 4-13 [facility] [id number] [address] [place] [address] Eosinophils (%) (Auto) April 15, 2023 5:54am 5.5 % 0-6 [facility] [id number] [address] [place] [address] Eosinophils (%) (Auto) May 13, 2023 6:43am 2.0 % 0-6 [facility] [id number] [address] [facility] [place] [address] Basophils (%) (Auto) April 15, 2023 5:54am 1.0 % 0-2 [facility] [id number] [address] [facility] [place] [address] Basophils (%) (Auto) May 13, 2023 6:43am 0.8 % 0-2 [facility] [id number] [address] [facility] [place] [address] Immature Granulocytes % April 15, 2023 5:54am 0.2 % 0.0-0.7 [facility] [id number] [address] [facility] [place] [address] Immature Granulocytes % May 13, 2023 6:43am 0.8 % 0.0-0.7 [facility] [id number] [address] [facility] [place] [address] Neutrophils # (Auto) April 15, 2023 5:54am 2.5 10^3uL 1.8-6.6 [facility] [id number] [address] [place] [address] Neutrophils # (Auto) May 13, 2023 6:43am 3.2 10^3uL 1.8-6.6 [facility] [id number] [address] [place] [address] Lymphocytes # (Auto) April 15, 2023 5:54am 1.7 10^3/uL 1.0-3.1 [facility] [id number] [address] [place] [address] Lymphocytes # (Auto) May 13, 2023 6:43am 2.0 10^3/uL 1.0-3.1 [facility] [id number] [address] [facility] [place] [address] Monocytes # (Auto) April 15, 2023 5:54am 0.6 10^3uL 0.0-1.0 [facility] [id number] [address] [facility] [place] [address] Monocytes # (Auto) May 13, 2023 6:43am 0.5 10^3uL 0.0-1.0 [facility] [id number] [address] [facility] [place] [address] Eosinophils # (Auto) April 15, 2023 5:54am 0.3 10^3uL 0.0-0.5 [facility] [id number] [address] [facility] [place] [address] Eosinophils # (Auto) May 13, 2023 6:43am 0.1 10^3uL 0.0-0.5 [facility] [id number] [address] [facility] [place] [address] Basophils # (Auto) April 15, 2023 5:54am 0.1 10^3/uL 0.0-0.1 [facility] [id number] [address] [facility] [place] [address] Basophils # (Auto) May 13, 2023 6:43am 0.1 10^3/uL 0.0-0.1 [facility] [id number] [address] [facility] [place] [address] Erythrocyte Sedimentatio n Rate April 15, 2023 5:54am 33 mm/hr 0-30 [facility] [id number] [address] [facility] [place] [address] Erythrocyte Sedimentatio n Rate May 08, 2023 3:36pm 19 mm/hr 0-30 [facility] [id number] [address] [facility] [place] [address] Prothrombin Time May 08, 2023 4:04pm 18.4 SEC 9.8-12.7 [facility] [id number] [address] [facility] [place] [address] INR Internationa l Normalized Ratio May 08, 2023 4:04pm 1.64 [facility] [id number] [address] [place] [address] Activated Partial Thromboplast Time May 08, 2023 4:04pm 63.0 SEC 25-36 [facility] [id number] [address] [place] [address] Urine Color April 12, 2023 7:25pm Yellow Yellow [facility] [id number] [address] [place] [address] Urine Color May 08, 2023 4:44pm Yellow Yellow [facility] [id number] [address] [place] [address] Urine Clarity April 12, 2023 7:25pm Clear Clear [facility] [id number] [address] [place] [address] Urine Clarity May 08, 2023 4:44pm Clear Clear [facility] [id number] [address] [place] [address] Urine pH April 12, 2023 7:25pm 5.5 6.0-8.0 [facility] [id number] [address] [place] [address] Urine pH May 08, 2023 4:44pm 7.0 6.0-8.0 [facility] [id number] [address] [place] [address] Urine Specific [place] April 12, 2023 7:25pm 1.010 1.000-1.03 0 [facility] [id number] [address] [place] [address] Urine Specific [place] May 08, 2023 4:44pm 1.018 1.000-1.03 0 [facility] [id number] [address] [place] [address] Urine Protein April 12, 2023 7:25pm Negative Negative [facility] [id number] [address] [place] [address] Urine Protein May 08, 2023 4:44pm Trace Negative [facility] [id number] [address] [place] [address] Urine Glucose (UA) April 12, 2023 7:25pm Negative Negative [facility] [id number] [address] [place] [address] Urine Glucose (UA) May 08, 2023 4:44pm Negative Negative [facility] [id number] [address] [place] [address] Urine Ketones April 12, 2023 7:25pm Negative Negative [facility] [id number] [address] [place] [address] Urine Ketones May 08, 2023 4:44pm Negative Negative [facility] [id number] [address] [place] [address] Urine Occult Blood April 12, 2023 7:25pm Negative Negative [facility] [id number] [address] [place] [address] Urine Occult Blood May 08, 2023 4:44pm Negative Negative [facility] [id number] [address] [place] [address] Urine Nitrate April 12, 2023 7:25pm Negative Negative [facility] [id number] [address] [place] [address] Urine Nitrate May 08, 2023 4:44pm Negative Negative [facility] [id number] [address] [place] [address] Urine Bilirubin April 12, 2023 7:25pm Negative Negative [facility] [id number] [address] [place] [address] Urine Bilirubin May 08, 2023 4:44pm Negative Negative [facility] [id number] [address] [place] [address] Urine Urobilinogen April 12, 2023 7:25pm 0.2 0.2-1.0 [facility] [id number] [address] [place] [address] Urine Urobilinogen May 08, 2023 4:44pm 0.2 0.2-1.0 [facility] [id number] [address] [place] [address] Urine Leukocyte Esterase April 12, 2023 7:25pm Negative Negative [facility] [id number] [address] [place] [address] Urine Leukocyte Esterase May 08, 2023 4:44pm Negative Negative [facility] [id number] [address] [place] [address] Urine WBC May 08, 2023 4:44pm 0-2 /HPF 0-3 [facility] [id number] [address] [place] [address] Urine Culture Indicated April 12, 2023 7:25pm No Culture not indicated. [facility] [id number] [address] [place] [address] Urine Culture Indicated May 08, 2023 4:44pm No Culture not indicated. [facility] [id number] [address] [place] [address] Urine Bacteria May 08, 2023 4:44pm Few /HPF NONE SEEN [facility] [id number] [address] [place] [address] Sodium Level April 15, 2023 5:54am 138 mmol/L 136-145 [facility] [id number] [address] [place] [address] Sodium Level May 13, 2023 6:43am 138 mmol/L 136-145 [facility] [id number] [address] [place] [address] Potassium Level April 15, 2023 5:54am 4.0 mmol/L 3.5-5.1 [facility] [id number] [address] [place] [address] Potassium Level May 13, 2023 6:43am 4.0 mmol/L 3.5-5.1 [facility] [id number] [address] [place] [address] Chloride Level April 15, 2023 5:54am 108 mmol/L 98-107 [facility] [id number] [address] [place] [address] Chloride Level May 13, 2023 6:43am 110 mmol/L 98-107 [facility] [id number] [address] [facility] [place] [address] Carbon Dioxide Level April 15, 2023 5:54am 26 mmol/L [facility] [id number] [address] [facility] [place] [address] Carbon Dioxide Level May 13, 2023 6:43am 26 mmol/L [facility] [id number] [address] [facility] [place] [address] Anion Gap April 15, 2023 5:54am 4.0 MMOL/L 1.0-15.0 [facility] [facility] [id number] 214 [facility] [place] [address] Anion Gap May 13, 2023 6:43am 2.0 MMOL/L 1.0-15.0 [facility] [id number] 214 [facility] [place] [address] Blood Urea Nitrogen April 15, 2023 5:54am 24 mg/dL 06-02 [facility] [id number] 214 [facility] [place] [address] Blood Urea Nitrogen May 13, 2023 6:43am 24 mg/dL 06-02 [facility] [id number] 214 [facility] [place] [address] Creatinine April 15, 2023 5:54am 1.20 mg/dL 0.55-1.02 [facility] [id number] 214 [facility] [place] [address] Creatinine May 13, 2023 6:43am 1.01 mg/dL 0.55-1.02 [facility] [id number] 214 [facility] [place] [address] Estimated GFR (MDRD) April 15, 2023 5:54am 43 UNITS= mL/min/1.73m squared Unable to flag low results Results less than 60 may warrant further investigationPa tients race is not known. If the patient is , multiply the calculated GFR result provided by 1.21. GFR Estimate should not be used to alter drug dosages. [facility] [id number] 214 [facility] [place] [address] Estimated GFR (MDRD) May 13, 2023 6:43am 52 UNITS= mL/min/1.73m squared Unable to flag low results Results less than 60 may warrant further investigationPa tients race is not known. If the patient is , multiply the calculated GFR result provided by 1.21. GFR Estimate should not be used to alter drug dosages. [facility] [id number] 214 [facility] [place] [address] BUN/Creatini ne Ratio April 15, 2023 5:54am 20.1 10.0-20.00 [facility] [id number] 214 [facility] [place] [address] BUN/Creatini ne Ratio May 13, 2023 6:43am 23.8 10.0-20.00 [facility] [id number] 214 [facility] [place] [address] Glucose Level April 15, 2023 5:54am 171 mg/dL [facility] [id number] 214 [facility] [place] [address] Glucose Level May 13, 2023 6:43am 162 mg/dL [facility] [id number] 214 [facility] [place] [address] Bedside Glucose April 16, 2023 11:21am 180 MG/DL Followed protocol Point of Care 214 [facility] [place] [address] Bedside Glucose May 13, 2023 11:01am 252 MG/DL - Point of Care 214 [facility] [place] [address] Calculated Osmolality April 15, 2023 5:54am [phone] [facility] [id number] 214 [facility] [place] [address] Calculated Osmolality May 13, 2023 6:43am [phone] [facility] [id number] [address] [facility] [place] [address] Calcium Level April 15, 2023 5:54am 8.9 mg/dL 8.5-10.1 [facility] [id number] 214 [facility] [place] [address] Calcium Level May 13, 2023 6:43am 9.2 mg/dL 8.5-10.1 [facility] [id number] [address] [place] [address] [place] [address] Troponin I High Sensitivity May 08, 2023 4:04pm 11.1 ng/L 0.00-49.9 | | FEMALE: | MALE: || Low Risk (Negative) | < 50 ng/L | < 80 ng/L | | Intermediate Risk | 50 - 110 ng/L | 80 - 110 ng/L | | High Risk (Critical)| >= 111 ng/L | >= 111 ng/L | | | [facility] [id number] 214 [place] [address] Magnesium Level May 13, 2023 6:43am 2.0 mg/dL 1.8-2.4 [facility] [id number] [address] [place] [address] [place] [address] Aspartate Amino Transf (AST/SGOT) April 13, 2023 6:55am 52 U/L [facility] [id number] 214 [facility] [place] [address] Aspartate Amino Transf (AST/SGOT) May 13, 2023 6:43am 43 U/L [facility] [id number] 214 [place] [address] Alanine Aminotransfe rase (ALT/SGPT) April 13, 2023 6:55am 42 U/L 13- [facility] [id number] [address] [facility] [place] [address] Alanine Aminotransfe rase (ALT/SGPT) May 13, 2023 6:43am 50 U/L 13-56 [facility] [id number] [address] [facility] [place] [address] Alkaline Phosphatase April 13, 2023 6:55am 98 U/L 45-117 [facility] [id number] [address] [facility] [place] [address] Alkaline Phosphatase May 13, 2023 6:43am 101 U/L 45-117 [facility] [id number] 214 [facility] [place] [address] Total Bilirubin April 13, 2023 6:55am 1.07 mg/dL 0.20-1.00 [facility] [id number] 214 [facility] [place] [address] Total Bilirubin May 13, 2023 6:43am 0.41 mg/dL 0.20-1.00 [facility] [id number] 214 [facility] [place] [address] Total Protein April 13, 2023 6:55am 6.5 g/dL 6.40-8.20 [facility] [id number] 214 [facility] [place] [address] Total Protein May 13, 2023 6:43am 7.1 g/dL 6.40-8.20 [facility] [id number] 214 [facility] [place] [address] Albumin April 13, 2023 6:55am 2.9 g/dL 3.4-5.0 [facility] [id number] 214 [facility] [place] [address] Albumin May 13, 2023 6:43am 3.0 g/dL 3.4-5.0 [facility] [id number] [address] [facility] [place] [address] Globulin April 13, 2023 6:55am 3.6 Ratio 1.3-4.9 [facility] [id number] [address] [facility] [place] [address] Globulin May 13, 2023 6:43am 4.1 Ratio 1.3-4.9 [facility] [id number] 214 [facility] [place] [address] Albumin/Glob ulin Ratio April 13, 2023 6:55am 0.8 Ratio 1.2-2.3 [facility] [id number] 214 [facility] [place] [address] Albumin/Glob ulin Ratio May 13, 2023 6:43am 0.7 Ratio 1.2-2.3 [facility] [id number] [address] [facility] [place] [address] Lactic Acid Level April 12, 2023 6:25pm 1.9 mmol/L 0.40-2.00 [facility] [id number] 214 [facility] [place] [address] Lactic Acid Level May 08, 2023 8:35pm 1.5 mmol/L 0.40-2.00 [facility] [id number] 214 [facility] [place] [address] Lipase May 08, 2023 4:04pm 51 U/L 13-75 [facility] [id number] [address] [facility] [place] [address] Hemoglobin A1c April 13, 2023 6:55am 7.5 % 3.8-5.6 [facility] [id number] [address] [facility] [place] [address] Estimated Average Glucose April 13, 2023 6:55am 169 mg/dL 70-126 The estimated average glucose (eAG) is an approximation of the average glucose concentration in mg/dL over the last 90 days.The 2010 "Standards of Medical Care in Diabetes" of the [place] [employer] includes the following interpretations of Hemoglobin A1c results: >=6.5% Diagnostic of Diabetes 5.7-6.4% IFG/IGT ("Pre-Diabetes" ) [facility] [id number] [address] [facility] [place] [address] B-Type Natriuretic Peptide May 08, 2023 4:04pm 234 PG/ML 0-100 [place] [id number] 214 [facility] [place] [address] Thyroid Stimulating Hormone (TSH) April 13, 2023 6:55am 1.260 uIU/mL 0.358-3.74 [facility] [id number] 214 [facility] [place] [address] C-Reactive Protein April 15, 2023 5:54am 3.22 mg/dL 0.00-0.30 [facility] [id number] 214 [facility] [place] [address] C-Reactive Protein May 08, 2023 4:04pm 6.53 mg/dL 0.00-0.30 [facility] [id number] 214 [facility] [place] [address] Vancomycin Level Peak May 11, 2023 9:03pm 32.5 ug/mL 20.0-40.0 [facility] [id number] 214 [facility] [place] [address] Vancomycin Level Trough May 11, 2023 5:50pm 10.1 ug/mL 10.0-20.0 [facility] [id number] 214 [facility] [place] [address] Procalcitoni n May 08, 2023 4:04pm 0.69 [...] risk of severe sepsis and/or septic shock. [facility] [id number] [address] [facility] [place] [address] Influenza Type A (Rapid) April 12, 2023 6:20pm Negative Negative [facility] [id number] [address] [facility] [place] [address] Influenza Type B (Rapid) April 12, 2023 6:20pm Negative Negative [facility] [id number] [address] [place] [address] [place] [address] MRSA Surveillance Screen May 10, 2023 10:26am Negative NEGATIVE [facility] [id number] [address] [place] [address] [place] [address] SARS-CoV-2 (PCR) April 12, 2023 6:51pm Negative Negative Negative results do not preclude [id number] tion and should not be used as [...] and not for any viruses or pathogens. [facility] [id number] [address] [place] [address] [place] [address] SARS-CoV-2 (PCR) May 08, 2023 4:23pm Negative Negative Negative results do not preclude [id number] tion and should not be used as [...] and not for any viruses or pathogens. [facility] [id number] 214 [facility] [place] [address] Soft Tissue MRSA (PCR) April 13, 2023 11:03am Negative NEGATIVE [facility] [id number] [address] [place] [address] [place] [address] Soft Tissue MRSA (PCR) May 08, 2023 5:57pm Negative NEGATIVE [facility] [id number] 214 [facility] [place] [address] Soft Tissue S. aureus (PCR) April 13, 2023 11:03am Negative NEGATIVE XPert MRSA/SA Soft Skin & Tissue Assay is included as part of Wound Culture.Further ID and Sensitivities to follow. [facility] [id number] 214 [facility] [place] [address] Soft Tissue S. aureus (PCR) May 08, 2023 5:57pm Negative NEGATIVE XPert MRSA/SA Soft Skin & Tissue Assay is included as part of Wound Culture.Further ID and Sensitivities to follow. [facility] [id number] [address] [facility] [place] [address] SARS-CoV-2 Antigen (Rapid) April 12, 2023 6:20pm Presumptive negative Negative The sensitivity and specificity [...] an EUA for use by authorized laboratories. [facility] [id number] [address] [facility] [place] [address] SARS-CoV-2 Antigen (Rapid) May 08, 2023 4:04pm [...] an EUA for use by authorized laboratories. [facility] [id number] 214 [facility] [place] [address] Microbiology Results Procedure Source Result Collection Date/Time Result Date/Time Result Comment Performing Site Blood Culture Blood No Growth after 5 days April 16, 2023 12:44am April 21, 2023 12:50am [facility] [id number] 214 [facility] [place] [address] Blood Culture Blood Enterococcus faecalis May 08, 2023 4:04pm May 11, 2023 9:33am [facility] [id number] 214 [facility] [place] [address] Gram Stain Drainage, Left Foot April 13, 2023 11:03am April 14, 2023 11:26am [facility] [id number] [address] [facility] [place] [address] Wound Culture Drainage, Left Foot Strep agalactiae - (Group B) April 13, 2023 11:03am April 15, 2023 10:43am [facility] [id number] [address] [facility] [place] [address] Gram Stain Foot, Left May 08, 2023 5:57pm May 09, 2023 11:58am [facility] [id number] 214 [facility] [place] [address] Wound Culture Foot, Left Enterococ faecalis - (Group D) May 08, 2023 5:57pm May 10, 2023 8:00am [facility] [id number] [address] [facility] [place] [address] Diagnostic Imaging Reports Report Dictated Date/Time Dictated By Status Magnetic Resonance Imaging Report April 12, 2023 8:56p salima Rodriguez MD completed [address], [address] Diagnostic Imaging Signed Patient: Grazyna Dale : 1940 Age: 83 Gender: F ADM Date: 04/12/23 DOS: 04/12/23 Primary Care Physician: Moise Reed DO Ordering Physician: Imer King DO Location: ER CAT SCAN CT of the LEFT lower extremity (LEFT foot) without contrast Indication: LEFT foot pain and swelling. Diabetes. Evaluate for osteomyelitis. Comparison: MRI 06/05/2022 Technique: Noncontrast CT was performed at 2 mm collimation. Coronal and sagittal reconstructed images were performed. Bone and soft tissue window algorithm images were provided. Radiation dose reduction techniques were utilized including automated exposure control, adjustment of the mA and/or KV according to the patient's size. Findings: Extensive operative changes are seen involving the first metatarsal, intertarsal joints and first through third intermetatarsal joints. There is metatarsal primum varus deformity. There has been likely amputation of the distal phalanx and middle phalanx second and third digits. Distal phalanges remain involving the first, fourth and fifth digits. The bones are demineralized. Degenerative changes are seen involving the first metatarsal sesamoid joints. Plantar and retrocalcaneal spurs are seen with calcifications involving the distal Achilles tendon. Degenerative changes involving the subtalar joint. Fusion of the navicular to the other tarsal bones. There is no abnormal gas identified. There is soft tissue prominence underlying the first metatarsal phalangeal joint. There may be an ulcer present. On noncontrast CT, there is no convincing drainable collection. Atrophy is seen involving the ankle and foot musculature. Impression: 1. Likely open wound underlying the plantar aspect first metatarsal with focal thickening of the subcutaneous tissues. A drainable abscess is not seen on noncontrast CT. No gross evidence for bone destruction. No significant subcutaneous gas or radiopaque foreign body. If there remains suspicion for osteomyelitis, consider three-phase bone scan or MRI with and without contrast. 2. 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 3. 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 4. Chronic injury involving the distal Achilles with calcifications. Plantar and retrocalcaneal spurs. Act 112: NO - Not indicated. Dictated By:Nay Rodriguez MD Electronically Signed By: Nay Rodriguez MD Signed Date/Time:04/12/232102 [employer] Attendant: LIYA Dictated Date: 04/12/232055 Transcribed Date/Time:04/12/232055 CC: Moise Reed DO; Imer King DO ; Report Dictated Date/Time Dictated By Status Magnetic Resonance Imaging Report April 14, 2023 7:30a m Nay Rodriguez MD [address], [facility] Signed Patient: Grazyna Dale : 1940 Age: 83 Gender: F ADM Date: 04/12/23 DOS: 04/12/23 Primary Care Physician: Moise Reed DO Ordering Physician: Imer King DO Location: Radiology Chest AP Portable. 04/12/2023 at 6:12 PM Indication: Fever, foot infection Comparison: 10/14/2022 Chest x-ray was performed. The heart and mediastinum are normal. The lungs are clear. There is no pleural effusion. There is no pneumothorax. The bones are unremarkable. Impression: No active cardiopulmonary disease. Dictated By:Nay Rodriguez MD Electronically Signed By: Nay Rodriguez MD Signed Date/Time:04/14/23730 [employer] Attendant: LIYA Dictated Date: 04/14/23729 Transcribed Date/Time:04/14/23729 CC: Moise Reed DO; Imer King DO ; Report Dictated Date/Time Dictated By Status Echocardiogram April 14, 2023 7:05am Pedro Paez DO completed [address], [address] ECHOCARDIOGRAM REPORT Signed Patient: Grazyna Dale : 1940 Female DOS: 04/14/23 07 Primary Care Physician: Moise Reed DO Ordering Physician: Gabriela Tellez PA-C Referring Physician: Location: [place] [address] Echocardiogram Report Name: Grazyna Dale Ordering Physician: Gabriela Pang Patient Location: ^109^A Gender: Female : 1940 Race: CA Age: 83 yrs HR: 71 Study Date: 04/14/2023 07:05 AM Height: 64 in Weight: 180 lb BSA: 1.9 m2 BP: 100/60 mmHg Reason For Study: fevers/chills Interpretation Summary No obvious vegetatios appreciated, If high clinical suspicion for endocarditis would recommend FARHEEN. There is mild concentric left ventricular hypertrophy. The left ventricular ejection fraction is normal. The left atrium is mildly dilated. There is no mitral valve stenosis. There is mild mitral regurgitation. Procedure: A complete two-dimensional transthoracic echocardiogram was performed (2D, M- mode, Doppler and color flow Doppler). The study was technically adequate. Findings: Left Ventricle: The left ventricle is grossly normal size. There is mild concentric left ventricular hypertrophy. The left ventricular ejection fraction is normal. Ejection Fraction = greater than 55%. The left ventricular wall motion is normal. Right Ventricle: The right ventricle is grossly normal size. The right ventricular systolic function is normal. Atria: The left atrium is mildly dilated. Right atrial size is normal. There is no Doppler evidence for an atrial septal defect. Mitral Valve: The MV is sclerotic. There is moderate mitral annular calcification. There is no mitral valve stenosis. There is mild mitral regurgitation. Tricuspid Valve: The tricuspid valve is not well visualized. There is no tricuspid stenosis. There is trace tricuspid regurgitation. Right ventricular systolic pressure is normal. Aortic Valve: The aortic valve is not well visualized. The aortic valve is sclerotic. No hemodynamically significant valvular aortic stenosis. Trace aortic regurgitation. Pulmonic Valve: The pulmonic valve is not well visualized. There is no pulmonic valvular stenosis. Trace pulmonic valvular regurgitation. Great Vessels: The aortic root is normal size. normal size. Pericardium/Pleural: There is no pericardial effusion. Diastolic Function: The diastolic parameters measured indicate a impaired relaxation (grade I) diastolic dysfunction. MMode/2D Measurements & Calculations RVDd: 3.2 cm FS: 28.2 % IVSd: 1.1 cm EDV(Teich): 84.9 ml LVIDd: 4.3 cm ESV(Teich): 38.4 ml LVIDs: 3.1 cm LVPWd: 0.94 cm LA dimension: 4.0 cm LV mass(C)dI: 77.6 grams/m2 asc Aorta Diam: 2.7 cm LVOT diam: 2.1 cm LVOT area: 3.5 cm2 EDV(MOD-sp4): 65.3 ml SV(MOD-sp4): 49.9 ml ESV(MOD-sp4): 15.4 ml LA A2Cs: 53.7 ml LA A4Cs: 40.2 ml TAPSE: 2.0 cm Doppler Measurements & Calculations MV E max charlie: 102.5 cm/sec MV dec slope: 484.5 cm/sec2 MV A max charlie: 72.5 cm/sec MV E/A: 1.4 MV dec time: 0.22 sec Lat Peak E' Charlie: 9.6 cm/sec Lateral E to E': 10.7 {ratio} Med Peak E' Charlie: 9.3 cm/sec Medial E to E': 11.0 {ratio} LV V1 VTI: 12.2 cm MR max charlie: 104.1 cm/sec LV V1 max: 52.4 cm/sec MR max P.3 mmHg Ao V2 max: 70.8 cm/sec Ao max P.0 mmHg Ao V2 mean: 52.3 cm/sec Ao mean P.2 mmHg Ao V2 VTI: 17.5 cm SHAUN(I,D): 2.4 cm2 SHAUN(V,D): 2.6 cm2 SV(LVOT): 42.5 ml PA V2 max: 68.8 cm/sec PA max P.9 mmHg PA V2 mean: 50.0 cm/sec PA mean P.1 mmHg PA V2 VTI: 15.2 cm PA acc time: 0.13 sec TR max charlie: 215.3 cm/sec PA pr(Accel): 19.9 mmHg TR max P.6 mmHg RV S Charlie: 9.1 cm/sec Interpreted and electronically authenticated by Pedro Paez, 04/14/2023 12:37 DO PM Ordering Physician: Gabriela Pang Performed By: Ray Reyna Dictated By:Pedro Paez DO Electronically Signed By: Pedro Paez DO Signed Date/Time:04/14/23 1237 [employer] Attendant: ALEXANDER Dictated Date: 04/14/23 0705 Transcribed Date/Time:04/14/23 1237 CC: Gabriela Tellez PA-C; Moise Reed DO ; Report Dictated Date/Time Dictated By Status Magnetic Resonance Imaging Report April 16, 2023 11:38 am Luis inelsen [address], [address] Diagnostic Imaging Signed Patient: Grazyna Dale : 1940 Age: 83 Gender: F ADM Date: 04/12/23 DOS: 04/15/23 Primary Care Physician: Moise Reed DO Ordering Physician: Tonya Brandt PA-C Location: Nuclear Medicine Whole Body Bone Scan Radiopharmaceutical Tc99m MDP Dose 25.4 mCi Route IV Date 04/15/2023 12:00 EDT CLINICAL INFORMATION: Chronic wound in the left foot, left foot cellulitis, rule out osteomyelitis TECHNIQUE: Images of bilateral feet during blood pool and delayed phase were obtained. FINDINGS: There is asymmetrically increased, patchy radiotracer uptake in the left foot on blood pool and delayed images. There is no abnormal radiotracer uptake in the right foot on blood pool or delayed images. IMPRESSION: Asymmetrically increased, patchy radiotracer uptake in the left foot on blood pool and delayed images. Osteomyelitis cannot be excluded based on this examination. Recommend clinical correlation, and if clinically indicated, MRI of the left foot may be considered for further evaluation. Act 112: YES - In compliance with the Patient Test Result Information Act of 2018, a letter and report may be sent to the patient within 20 days. Dictated By:Luis Strong Electronically Signed By: Luis Strong Signed Date/Time:04/16/23 1144 [employer] Attendant: [email or web address] Dictated Date: 04/16/23 1138 Transcribed Date/Time:04/16/23 1138 CC: Moise Reed DO; Tonya Brandt PA-C ; Report Dictated Date/Time Dictated By Status Magnetic Resonance Imaging Report May 08, 2023 4:42pm Maynor Le MD [address], [address] Diagnostic Imaging Signed Patient: Grazyna Dale : [...] Electronically Signed By: Maynor Le MD Signed Date/Time:05/08/23 1645 [employer] Attendant: [email or web address] Dictated Date: 05/08/231641 Transcribed Date/Time:05/08/231641 CC: Moise Reed DO; Tae Aldana MD ; Report Dictated Date/Time Dictated By Status Magnetic Resonance Imaging Report May 08, 2023 6:45pm Maynor Le MD completed [facility] [address] [facility], [address] Diagnostic Imaging Signed Patient: Grazyna Dale : [...] Signed By: Maynor Le MD Signed Date/Time:05/08/231908 [employer] Attendant: LIYA Dictated Date: 05/08/231844 Transcribed Date/Time:05/08/231844 CC: Moise Reed DO; YAO Avitia ; Report Dictated Date/Time Dictated By Status Magnetic Resonance Imaging Report May 11, 2023 8:05am Luis Morel DO completed [address], [facility] Signed Patient: Grazyna Dale : [...] change compared to the prior study. Piedad Somers Dictated By:Luis Morel DO Electronically Signed By: Luis Morel DO Signed Date/Time:05/11/23 0933 [employer] Attendant: KEL Dictated Date: 05/11/23804 Transcribed Date/Time:05/11/23823 CC: Moise Reed DO; Tae Aldana MD ; Report Dictated Date/Time Dictated By Status Magnetic Resonance Imaging Report May 11, 2023 8:06am Luis Morel DO completed [address], [address] Diagnostic Imaging Signed Patient: Grazyna Dale : 1940 Age: 83 Gender: F ADM Date: 05/10/23 DOS: 05/08/23 Primary Care Physician: Moise Reed DO Ordering Physician: Tae Aldana MD Location: [facility] Radiology Left foot 3 view INDICATION: Diabetic [...] definite plain radiographic evidence for osteomyelitis. Piedad Yonis Dictated By:Luis Morel DO Electronically Signed By: Luis Morel DO Signed Date/Time:05/11/23933 [facility] Attendant: WHENRY Dictated Date: 05/11/23805 Transcribed Date/Time:05/11/23830 CC: Moise Reed DO; Tae Aldana MD ; Report Dictated Date/Time Dictated By Status Magnetic Resonance Imaging Report May 11, 2023 8:09am Luis Morel DO completed [address], [address] Diagnostic Imaging Signed Patient: Grazyna Dale : [...] changes, osteophytes and suprapatellar loose bodies. Piedad Yonis Dictated By:Luis Morel DO Electronically Signed By: Luis Morel DO Signed Date/Time:05/11/2334 [facility] Attendant: WHENRY Dictated Date: 05/11/2309 Transcribed Date/Time:05/11/23831 CC: Moise Reed DO; Tae Aldana MD ; Vital Signs Vital Reading Result Reference Range Collection Date/Time Weight 82.10 kg April 14, 2023 11:27am Body Temperature 97.5 [degF] 97.6-99.6 April 16 023 1:30pm Heart Rate 73 /min 60-90 April 16, 2023 1:30pm Respiratory rate 20 /min -April 16 023 1:30pm Oxygen saturation by Pulse oximetry 95 % 95-100 April 16, 2023 1:30p m BP Systolic 115 mm[Hg] April 16, 2023 1:30pm BP Diastolic 64 mm[Hg] April 16, 2023 1:30pm Height 64 [in_i] May 11, 2023 2:17pm Weight 81.19 kg May 11, 2023 2:17pm Body Temperature 97.3 [degF] 97.6-99.6 May 13, 2023 11:55am Heart Rate 73 /min 60-90 May 13, 2023 11:55am Respiratory rate 18 /min -May 13, 2023 11:55am Oxygen saturation by Pulse [...] 10, 2023 9:04am Insurance Providers Guarantor Grazyna G Chito Address [address] [place] [address] Contact Info. Home Phone: Payer Policy Id Coverage Id Subscriber's Name Subscriber Id Effective Date Expiration Date [employer] Medicare MCR [id number] Grazyna Dale [id number] Johan Hardin MCREP [id number] Grazyna Dale [id number] Self Pay Self N/A Encounters Encounter Location(s) Arrival/Admit Date Discharge/Depart Date Provider(s) Discharged Inpatient [facility]-Acute Care April 12, 2023 10:06pm April 16, 2023 1:40pm Oleg Bernabe DO Discharged Recurring [facility]-Diabetic Education April 28, 2023 9:25am April 28, 2023 11:59pm Moise Reed DO Discharged Inpatient [facility]-Acute Care May 10, 2023 8:38am May 13, 2023 12:13pm Enrique Sousa MD Recent Diagnosis Onset Date Cellulitis of left foot Fever Weakness Atrial fibrillation CKD (chronic kidney disease) Chronic anticoagulation Diabetes Diabetic foot ulcer [id number] GERD (gastroesophageal reflux disease) Hyperlipidemia Hypertension Hypothyroidism May 22, 2015 Triple vessel coronary artery disease Bacteremia Cellulitis of left foot Fever Atrial fibrillation CHF (congestive heart failure) CKD (chronic kidney disease) Diabetic foot ulcer Hypertension Hypothyroidism May 22, 2015 Mental Status Observation Response Date Recorded Cognition Normal Cognition April 16, 2023 9:00am Cognition Normal Cognition May 13, 2023 8:39am Assessments Diagnosis Onset Date Resolution Status Cellulitis of left foot acut e Fever acute Weakness acute Atrial fibrillation chronic CKD (chronic kidney disease) 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 Diabetes chronic Diabetic foot ulcer chronic [id number] chronic GERD (gastroesophageal reflux disease) chronic Hyperlipidemia chronic Hypertension chronic Hypothyroidism May 22, 2015 chronic Triple vessel coronary artery disease chronic Bacteremia acute Cellulitis of left foot acut [...] Provider Address Moise Reed Work Phone: [address] [facility] [phone] Future Procedures Procedure Name Ordered Date Scheduled Date Admit to Hospital April 12, 2023 9:29pm March 9:29pm Diagnosis April 12, 2023 9:29pm April 12, 2023 9:29pm Discharge April 16, 2023 12:25pm April 16, 2023 12:25pm Inpatient Bed April 12, 2023 9:29pm April 12, 2023 9:29pm BIPAP/CPAP May 10, 2023 6:30pm April 6:30pm [...] Future medication information is unavailable Patient Instructions Cellulitis (Skin Infection), Adult (DC) Goals Acute Goals Remain Free of Injury Safely Transitions To Next L evel Of Care Demonstrates the ability to safely transition to the next level of care. Exhibit Optimal Tissue Perfu micaela Maintain Intact Skin Integri ty Remain Free of Injury Safely Transitions To Next L evel Of Care Demonstrates the ability to safely transition to the next level of care. Exhibit Optimal Tissue Perfu micaela Maintain Intact Skin Integri ty
--- OUTSIDE RECORDS SUMMARY | 2023-10-17 00:51 | External Medical Summary ---
Author Name Unknown Address Unknown Organization [facility] [employer] [facility] [employer] [facility] [address] [place] [address] [place] [address] Laboratory Report Ordering Provider Test Date Status Yovanny Hollins 05/13/2023 20:22:00 Final Observation Date Value Abnormality Reference (Units ) Status Glucose [Mass/volume] in Serum or Plasma 05/13/2023 21:11:04 232 Above high normal 74-109 (MG/DL) Final Urea nitrogen [Mass/volume] in Serum or Plasma 05/13/2023 21:11:04 22 6-23 (MG/DL) Final Creatinine [Mass/volume] in Serum or Plasma 05/13/2023 21:11:04 1.05 Above high normal 0.60-1.00 (MG/DL) Final GLOMERULAR FILTRATION RATE/1.73 SQ M.PREDICTED:ARVRAT:PT :SER/PLAS/BLD:QN:CREA TININE AND CYSTATIN C-BASED FORMULA (CKD-EPI 2020) 05/13/2023 21:11:04 53 Below low normal >=60 (ML/MIN/1.73 M2) Final Sodium [Moles/volume] in Serum or Plasma 05/13/2023 21:11:04 138 136-145 (MMOL/L) Final Potassium [Moles/volume] in Serum or Plasma 05/13/2023 21:11:04 4.1 3.5-5.1 (MMOL/L) Final Chloride [Moles/volume] in Serum or Plasma 05/13/2023 21:11:04 104 98-107 (MMOL/L) Final Carbon dioxide, total [Moles/volume] in Serum or Plasma 05/13/2023 21:11:04 23 22-29 (MMOL/L) Final Anion gap 3 in Serum or Plasma 05/13/2023 21:11:04 11 5-14 (MMOL/L) Final Calcium [Mass/volume] in Serum or Plasma 05/13/2023 21:11:04 9.5 8.4-10.2 (MG/DL) Final Performing Location [facility] [employer] Section Chief ry [address] [place] [id number]
--- OUTSIDE RECORDS SUMMARY | 2023-10-17 00:51 | External Medical Summary ---
Author Name Unknown Address Unknown Organization [facility] bsection:[facility] [address] [place] [facility] Laboratory Report Ordering Provider Test Date Status Yovanny Hollins 05/13/2023 16:25:00 Final Observation Date Value Abnormality Reference (Units ) Status Glucose [Mass/volume] in Arterial blood 05/13/2023 16:25:07 179 Above high normal 50-99 (MG/DL) Final Meter: [id number]\R\Operat or: [id number] Garcia Sofie
The Reference Range listed is for fasting blood Glucose only. Performing Location [facility] [address] [place]
[2023-10-17] MEDS: PIPERACILLIN/TAZOBACTAM 4.5 GM in DEXTROSE 5% MINI-B 100 ML IV SCH ×3 (00:52→16:31)
--- OUTSIDE RECORDS SUMMARY | 2023-10-17 00:52 | External Medical Summary ---
Author Name Unknown Address Unknown Organization : Laboratory Report Ordering Provider Test Date Status Merry Nunez 05/13/2023 07:05 Final Observation Date Value Abnormality Reference (Units ) Status Glucose, capillary POC (i-STAT) 05/13/2023 07:15 169 Above high normal 70-99 (MG/DL) Final Performing Location
--- OUTSIDE RECORDS SUMMARY | 2023-10-17 00:52 | External Medical Summary ---
Author Name Unknown Address Unknown Organization [facility] [address] [facility] [address] [facility] Report Ordering Provider Test Date Status Merry Nunez 05/13/2023 06:43 Final Observation Date Value Abnormality Reference (Units ) Status Sodium 05/13/2023 07:07 138 Normal 136-145 (mmol/L) Final Potassium [Moles/volume] in Specimen 05/13/2023 07:07 4.0 Normal 3.5-5.1 (mmol/L) Final Cl 05/13/2023 07:07 110 Above high normal 98-107 (mmol/L) Final CO2 05/13/2023 07:07 26 Normal 21-32 (mmol/L) Final Anion gap 05/13/2023 07:07 2.0 Normal 1.0-15.0 (MMOL/L) Final BUN 05/13/2023 07:07 24 Above high normal 7-18 (mg/dL) Final Creatinine 05/13/2023 07:07 1.01 Normal 0.55-1.02 (mg/dL) Final Glomerular filtration rate/1.73 sq M.predicted [Volume Rate/Area] in Serum, Plasma or Blood 05/13/2023 07:07 52 Final UNITS= mL/min/1.73m squared< br/> Unable to flag low results
Results less than 60 may warrant further investigation

Patients race is not known. If the patient is
[place], multiply the calculated GFR result provided by
1.21. GFR Estimate should not be used to alter drug dosages. Urea nitrogen/Creatinine [Mass Ratio] in Serum or Plasma 05/13/2023 07:07 23.8 Above high normal 10.0-20.00 Final Glucose 05/13/2023 07:07 162 Above high normal 70-99 (mg/dL) Final Osmolality of Serum or Plasma by calculation 05/13/2023 07:07 284 Normal 275-295 Fi nal Calcium [Mass/volume] in Unspecified specimen 05/13/2023 07:07 9.2 Normal 8.5-10.1 (mg/dL) Final Aspartate Aminotrans(SGOT) 05/13/2023 07:07 43 Above high normal 15-37 (U/L) Final ALT (Alanine aminotransferase) 05/13/2023 07:07 50 Normal 13-56 (U/L) Final Alk Phos 05/13/2023 07:07 101 Normal 45-117 (U/L) Final Bilirubin,Total 05/13/2023 07:07 0.41 Normal 0.20-1. 00 (mg/dL) Final Total Protein 05/13/2023 07:07 7.1 Normal 6.40-8.20 (g/dL) Final Albumin 05/13/2023 07:07 3.0 Below low normal 3.4-5.0 (g/dL) Final Globulin [Mass/volume] in Serum 05/13/2023 07:07 4.1 Normal 1.3-4.9 (Ratio) Final Albumin/Globulin [Mass Ratio] in Serum or Plasma 05/13/2023 07:07 0.7 Below low normal 1.2-2.3 (Ratio) Final Performing Location [facility] [address] [place] [address]
--- OUTSIDE RECORDS SUMMARY | 2023-10-17 00:52 | External Medical Summary | Continuity of Care Document ---
Author Name Unknown Address [address] [place] [address] Phone Organization [facility] Address [address] [facility] [place] [address] Phone Support Name Relationship Address Phone Kandi Swanson Daughter [address] [place] [address] Moise Reed Primary Care Provider [address] [place] [address] Imer King Emergency Provider [address] [place] [address] Oleg Bernabe Admit Provider [address] [place] [address] Tae Aldana Emergency Provider [address] [place] [address] Enrique Sousa Admit Provider [address] [place] [address] Chief Complaint and Reason for Visit Chief Complaint Cellulitis,foot Diabetic Education L foot cellulitis, diabetic ulcer Reason for Visit Cellulitis of left f oot Fever Weakness Atrial fibrillation CKD (chronic kidney disease) Chronic anticoagulation Diabetes Diabetic foot ulcer [id number] GERD (gastroesophageal reflux disease) Hyperlipidemia Hypertension Hypothyroidism [...] PO Every Night May 07, 2020 9:59am [facility] er 2019 3:49pm Glimepiride Disconti nued 4 MG PO Every Morning May 17, 2020 10:[facility]am [facility] 11:39a m administer with breakfast Lancets Disconti nued 0 .ROUTE .MEDSUPPLY 100 [facility] er 2019 12:00am May 23, 2021 7:48am As directed twice a day Dx E11.9 Blood Sugar Diagnostic (Onetouch Ultra Blue Test Strip) strip Disconti nued 0 .ROUTE .MEDSUPPLY 100 [facility] er 2019 12:00am May 23, 2021 7:48am As directed twice a day Dx E11.9 Metoprolol Tartrate (Lopressor) 25 mg tablet Disconti nued 25 MG PO Twice Daily 60 [facility] er 2019 11:58am January 22, 2021 9:46am Apixaban (Eliquis) 5 mg tablet Disconti nued 5 MG PO Twice Daily 60 [facility] er 2019 2:53pm ua 2020 4:43pm Insulin Degludec (Tresiba Flextouch U-100) 100 unit/mL (3 mL) insulin pen Disconti nued 25 UNIT SUBCUT daily September 13, 2020 9:44am [facility] er 2019 10:06a m continue increasing by 2 units every 3 days until blood sugars are in the 130 range Clopidogrel Bisulfate (Clopidogrel) 75 mg tablet Disconti nued 75 MG PO 3 times per week September 13, 2020 10:02am March 21, 2022 10:35a m Insulin Degludec (Tresiba Flextouch U-100) 100 unit/mL (3 mL) insulin pen Disconti nued 25 UNIT SUBCUT daily [facility] r 2019 10:06am [facility] er 2019 1:41pm 38 units daily Insulin [...] 2021 8:59am Lancets Disconti nued 0 .ROUTE .[facility] 100 May 23, 2021 7:48am Dece er 2020 10:44a m As directed twice a day Dx E11.9 Blood Sugar Diagnostic (Precision Q-I-D) strip Disconti nued 0 .ROUTE .[facility] 100 May 23, 2021 7:48am May 08, 2023 4:28pm As directed twice a day Dx E11.9 Insulin Degludec (Tresiba Flextouch U-200) 200 unit/mL (3 mL) insulin pen Disconti nued 38 UNIT SUBCUT Every Night June 07, 2021 10:04am [facility] er 2020 7:22am Levothyroxine Sodium (Levothyroxin e) [...] Lancets Disconti nued 0 .ROUTE .MEDSUPPLY 100 [facility] r 2020 10:[facility]am [facility] 2020 1:43pm As directed twice a day Dx E11.9 Gabapentin Disconti nued 800 MG PO .COMPLEX 180 [facility] r 2020 10:49am [facility] er 2020 1:43pm 800 mg PO take one tablet at lunchtime and one tablet at bedtime; Gabapentin Disconti nued 800 MG PO .COMPLEX 180 [facility] r 2020 1:43pm [facility] er 2020 9:46am 800 mg PO take one tablet at lunchtime and one tablet at bedtime; Lancets Disconti nued 0 .ROUTE .MEDSUPPLY 100 [facility] r 2020 1:43pm [facility] er 2021 11:27a m As directed twice a day Dx E11.9 Gabapentin Disconti nued 800 MG PO .COMPLEX 180 [facility] r 2020 9:45am March 21, 2022 [...] 29, 2018 12:00am March 22, 2018 2:37pm Eldred-3/Dha/E pa/Fish Oil (Fish Oil Eldred-3 Ec 1,200 Mg) [address] E[address] Chrissie [...] 2022 12:00am June 05, 2022 12:13p m Eldred-3 Fatty Acids (Eldred-3) 1,000 MG capsule Disconti nued 1000 MG [...] Disconti nued 50 MG PO Twice Daily [facility] 2021 1:00am May 08, 2023 4:29pm Lidocaine [...] UAL As Directed May 08, 2023 12:00am Krill/Eldred-3 /Dha/Epa/Lipi ds (Eldred-3 Krill Oil 500 Mg Sfgl) 1 EACH [...] Disconti nued 500 MG [facility] 2019 10:01a m Tramadol Hcl Disconti nued 50 MG [facility]H [facility] 12:[facility]am [facility] r 2019 12:02a m Doxycycline Hyclate Disconti nued 100 MG PO Twice Daily June 04, 2021 4:01pm [facility] er 2020 7:05am Azithromycin Disconti nued 0 [...] nued MG PO September 06, 2020 12:00am [facility] er 2019 9:43am Insulin Degludec (Tresiba [...] ua ry 2020 10:07a m Hydrocodone/A cetaminophen ([place] 5-325 Tablet) 5-325 mg tablet Disconti nued 1 TAB PO Twice Daily 60 30 r 2019 1:02am Docusate Sodium Disconti nued 100 MG PO Twice Daily November 19, 2020 1:00am February 28, 2021 11:13a m Hydrocodone/A cetaminophen ([place] 5-325 Tablet) 5-325 mg tablet Disconti nued [...] r 2020 1:00am May 08, 2023 4:25pm Eldred-3 Fatty Acids (Fish Oil Concentrate) 1,000 mg capsule Disconti nued 1000 MG PO Twice Daily 60 [facility] r 2020 1:00am May 03, 2022 11:24a m Immunizations Immunization Event Date Not Given Reason Dose Number Hairspring Cutter Lot Number Vaccine Information Statement (VIS) Detail SARS-COV-2 (COVID-19) MODERNA July 07, 2021 [id number] Fluzone QUAD August 16, 2017 Fluzone QUAD August 17, 2018 Influenza, high-dose, Quadrivalent October 18, 2020 [id number] Influenza, high-dose, Quadrivalent October 04, 2021 [id number] Pneumococcal 13-Valent Conjugate Vaccine September 08, 2018 [...] April 15, 2023 5:54am 5.1 10^3/uL 4.1-10.2 [facility] [id number] [address] [facility] [place] [address] White Blood Count May 13, 2023 6:43am 5.9 10^3/uL 4.1-10.2 [facility] [id number] [address] [facility] [place] [address] Red Blood Count April 15, 2023 5:54am 4.44 10^6/uL 3.80-5.20 [facility] [id number] [address] [facility] [place] [address] Red Blood Count May 13, 2023 6:43am 4.40 10^6/uL 3.80-5.20 [facility] [id number] [address] [facility] [place] [address] Hemoglobin April 15, 2023 5:54am 12.5 g/dL 11.5-15.5 [facility] [id number] [address] [facility] [place] [address] Hemoglobin May 13, 2023 6:43am 12.7 g/dL 11.5-15.5 [facility] [id number] [address] [facility] [place] [address] Hematocrit April 15, 2023 5:54am 38.6 % 35-46 [facility] [id number] [address] [facility] [place] [address] Hematocrit May 13, 2023 6:43am 37.8 % 35-46 [facility] [id number] [address] [place] [address] Mean Corpuscular Volume April 15, 2023 5:54am 86.9 fL 82.0-98.0 [facility] [id number] [address] [place] [address] Mean Corpuscular Volume May 13, 2023 6:43am 85.9 fL 82.0-98.0 [facility] [id number] [address] [place] [address] Mean Corpuscular Hemoglobin April 15, 2023 5:54am 28.2 pg 27.0-34.0 [facility] [id number] [address] [place] [address] Mean Corpuscular Hemoglobin May 13, 2023 6:43am 28.9 pg 27.0-34.0 [facility] [id number] [address] [place] [address] Mean Corpuscular Hemoglobin Concent April 15, 2023 5:54am 32.4 g/dL 31.0-36.0 [facility] [id number] [address] [place] [address] Mean Corpuscular Hemoglobin Concent May 13, 2023 6:43am 33.6 g/dL 31.0-36.0 [facility] [id number] [address] [place] [address] RDW Standard Deviation April 15, 2023 5:54am 46.8 fL 37-49 [facility] [id number] [address] [place] [address] RDW Standard Deviation May 13, 2023 6:43am 46.1 fL 37-49 [facility] [id number] [address] [place] [address] RDW Coefficient of Variation April 15, 2023 5:54am 14.7 % 11.8-14.8 [facility] [id number] [address] [place] [address] RDW Coefficient of Variation May 13, 2023 6:43am 14.5 % 11.8-14.8 [facility] [id number] [address] [facility] [place] [address] Platelet Count April 15, 2023 5:54am 191 10^3/uL 150-360 [facility] [id number] [address] [facility] [place] [address] Platelet Count May 13, 2023 6:43am 232 10^3/uL 150-360 [facility] [id number] [address] [facility] [place] [address] Mean Platelet Volume April 15, 2023 5:54am 10.4 fL 9.4-12.3 [facility] [id number] [address] [facility] [place] [address] Mean Platelet Volume May 13, 2023 6:43am 10.3 fL 9.4-12.3 [facility] [id number] [address] [facility] [place] [address] Neutrophils (%) (Auto) April 15, 2023 5:54am 49.5 % 42-75 [facility] [id number] [address] [facility] [place] [address] Neutrophils (%) (Auto) May 13, 2023 6:43am 53.8 % 42-75 [facility] [id number] [address] [facility] [place] [address] Lymphocytes (%) (Auto) April 15, 2023 5:54am 33.1 % 14-42 [facility] [id number] [address] [facility] [place] [address] Lymphocytes (%) (Auto) May 13, 2023 6:43am 34.0 % 14-42 [facility] [id number] [address] [facility] [place] [address] Monocytes (%) (Auto) April 15, 2023 5:54am 10.7 % 4-13 [facility] [id number] [address] [facility] [place] [address] Monocytes (%) (Auto) May 13, 2023 6:43am 8.6 % 4-13 [facility] [id number] [address] [place] [address] Eosinophils (%) (Auto) April 15, 2023 5:54am 5.5 % 0-6 [facility] [id number] [address] [place] [address] Eosinophils (%) (Auto) May 13, 2023 6:43am 2.0 % 0-6 [facility] [id number] [address] [facility] [place] [address] Basophils (%) (Auto) April 15, 2023 5:54am 1.0 % 0-2 [facility] [id number] [address] [facility] [place] [address] Basophils (%) (Auto) May 13, 2023 6:43am 0.8 % 0-2 [facility] [id number] [address] [facility] [place] [address] Immature Granulocytes % April 15, 2023 5:54am 0.2 % 0.0-0.7 [facility] [id number] [address] [facility] [place] [address] Immature Granulocytes % May 13, 2023 6:43am 0.8 % 0.0-0.7 [facility] [id number] [address] [facility] [place] [address] Neutrophils # (Auto) April 15, 2023 5:54am 2.5 10^3uL 1.8-6.6 [facility] [id number] [address] [place] [address] Neutrophils # (Auto) May 13, 2023 6:43am 3.2 10^3uL 1.8-6.6 [facility] [id number] [address] [place] [address] Lymphocytes # (Auto) April 15, 2023 5:54am 1.7 10^3/uL 1.0-3.1 [facility] [id number] [address] [place] [address] Lymphocytes # (Auto) May 13, 2023 6:43am 2.0 10^3/uL 1.0-3.1 [facility] [id number] [address] [facility] [place] [address] Monocytes # (Auto) April 15, 2023 5:54am 0.6 10^3uL 0.0-1.0 [facility] [id number] [address] [facility] [place] [address] Monocytes # (Auto) May 13, 2023 6:43am 0.5 10^3uL 0.0-1.0 [facility] [id number] [address] [facility] [place] [address] Eosinophils # (Auto) April 15, 2023 5:54am 0.3 10^3uL 0.0-0.5 [facility] [id number] [address] [facility] [place] [address] Eosinophils # (Auto) May 13, 2023 6:43am 0.1 10^3uL 0.0-0.5 [facility] [id number] [address] [facility] [place] [address] Basophils # (Auto) April 15, 2023 5:54am 0.1 10^3/uL 0.0-0.1 [facility] [id number] [address] [facility] [place] [address] Basophils # (Auto) May 13, 2023 6:43am 0.1 10^3/uL 0.0-0.1 [facility] [id number] [address] [facility] [place] [address] Erythrocyte Sedimentatio n Rate April 15, 2023 5:54am 33 mm/hr 0-30 [facility] [id number] [address] [facility] [place] [address] Erythrocyte Sedimentatio n Rate May 08, 2023 3:36pm 19 mm/hr 0-30 [facility] [id number] [address] [facility] [place] [address] Prothrombin Time May 08, 2023 4:04pm 18.4 SEC 9.8-12.7 [facility] [id number] [address] [facility] [place] [address] INR Internationa l Normalized Ratio May 08, 2023 4:04pm 1.64 [facility] [id number] [address] [place] [address] Activated Partial Thromboplast Time May 08, 2023 4:04pm 63.0 SEC 25-36 [facility] [id number] [address] [place] [address] Urine Color April 12, 2023 7:25pm Yellow Yellow [facility] [id number] [address] [place] [address] Urine Color May 08, 2023 4:44pm Yellow Yellow [facility] [id number] [address] [place] [address] Urine Clarity April 12, 2023 7:25pm Clear Clear [facility] [id number] [address] [place] [address] Urine Clarity May 08, 2023 4:44pm Clear Clear [facility] [id number] [address] [place] [address] Urine pH April 12, 2023 7:25pm 5.5 6.0-8.0 [facility] [id number] [address] [place] [address] Urine pH May 08, 2023 4:44pm 7.0 6.0-8.0 [facility] [id number] [address] [place] [address] Urine Specific [place] April 12, 2023 7:25pm 1.010 1.000-1.03 0 [facility] [id number] [address] [place] [address] Urine Specific [place] May 08, 2023 4:44pm 1.018 1.000-1.03 0 [facility] [id number] [address] [place] [address] Urine Protein April 12, 2023 7:25pm Negative Negative [facility] [id number] [address] [place] [address] Urine Protein May 08, 2023 4:44pm Trace Negative [facility] [id number] [address] [place] [address] Urine Glucose (UA) April 12, 2023 7:25pm Negative Negative [facility] [id number] [address] [place] [address] Urine Glucose (UA) May 08, 2023 4:44pm Negative Negative [facility] [id number] [address] [place] [address] Urine Ketones April 12, 2023 7:25pm Negative Negative [facility] [id number] [address] [place] [address] Urine Ketones May 08, 2023 4:44pm Negative Negative [facility] [id number] [address] [place] [address] Urine Occult Blood April 12, 2023 7:25pm Negative Negative [facility] [id number] [address] [place] [address] Urine Occult Blood May 08, 2023 4:44pm Negative Negative [facility] [id number] [address] [place] [address] Urine Nitrate April 12, 2023 7:25pm Negative Negative [facility] [id number] [address] [place] [address] Urine Nitrate May 08, 2023 4:44pm Negative Negative [facility] [id number] [address] [place] [address] Urine Bilirubin April 12, 2023 7:25pm Negative Negative [facility] [id number] [address] [place] [address] Urine Bilirubin May 08, 2023 4:44pm Negative Negative [facility] [id number] [address] [place] [address] Urine Urobilinogen April 12, 2023 7:25pm 0.2 0.2-1.0 [facility] [id number] [address] [place] [address] Urine Urobilinogen May 08, 2023 4:44pm 0.2 0.2-1.0 [facility] [id number] [address] [place] [address] Urine Leukocyte Esterase April 12, 2023 7:25pm Negative Negative [facility] [id number] [address] [place] [address] Urine Leukocyte Esterase May 08, 2023 4:44pm Negative Negative [facility] [id number] [address] [place] [address] Urine WBC May 08, 2023 4:44pm 0-2 /HPF 0-3 [facility] [id number] [address] [place] [address] Urine Culture Indicated April 12, 2023 7:25pm No Culture not indicated. [facility] [id number] [address] [place] [address] Urine Culture Indicated May 08, 2023 4:44pm No Culture not indicated. [facility] [id number] [address] [place] [address] Urine Bacteria May 08, 2023 4:44pm Few /HPF NONE SEEN [facility] [id number] [address] [place] [address] Sodium Level April 15, 2023 5:54am 138 mmol/L 136-145 [facility] [id number] [address] [place] [address] Sodium Level May 13, 2023 6:43am 138 mmol/L 136-145 [facility] [id number] [address] [place] [address] Potassium Level April 15, 2023 5:54am 4.0 mmol/L 3.5-5.1 [facility] [id number] [address] [place] [address] Potassium Level May 13, 2023 6:43am 4.0 mmol/L 3.5-5.1 [facility] [id number] [address] [place] [address] Chloride Level April 15, 2023 5:54am 108 mmol/L 98-107 [facility] [id number] [address] [place] [address] Chloride Level May 13, 2023 6:43am 110 mmol/L 98-107 [facility] [id number] [address] [facility] [place] [address] Carbon Dioxide Level April 15, 2023 5:54am 26 mmol/L [facility] [id number] [address] [facility] [place] [address] Carbon Dioxide Level May 13, 2023 6:43am 26 mmol/L [facility] [id number] [address] [facility] [place] [address] Anion Gap April 15, 2023 5:54am 4.0 MMOL/L 1.0-15.0 [facility] [id number] [address] [facility] [place] [address] Anion Gap May 13, 2023 6:43am 2.0 MMOL/L 1.0-15.0 [facility] [id number] [address] [facility] [place] [address] Blood Urea Nitrogen April 15, 2023 5:54am 24 mg/dL 06-02 [facility] [id number] [address] [facility] [place] [address] Blood Urea Nitrogen May 13, 2023 6:43am 24 mg/dL 06-02 [facility] [id number] [address] [facility] [place] [address] Creatinine April 15, 2023 5:54am 1.20 mg/dL 0.55-1.02 [facility] [id number] [address] [facility] [place] [address] Creatinine May 13, 2023 6:43am 1.01 mg/dL 0.55-1.02 [facility] [id number] [address] [facility] [place] [address] Estimated GFR (MDRD) April 15, 2023 5:54am 43 UNITS= mL/min/1.73m squared Unable to flag low results Results less than 60 may warrant further investigationPa tients race is not known. If the patient is , multiply the calculated GFR result provided by 1.21. GFR Estimate should not be used to alter drug dosages. [facility] [id number] [address] [facility] [place] [address] Estimated GFR (MDRD) May 13, 2023 6:43am 52 UNITS= mL/min/1.73m squared Unable to flag low results Results less than 60 may warrant further investigationPa tients race is not known. If the patient is , multiply the calculated GFR result provided by 1.21. GFR Estimate should not be used to alter drug dosages. [facility] [id number] [address] [facility] [place] [address] BUN/Creatini ne Ratio April 15, 2023 5:54am 20.1 10.0-20.00 [facility] [id number] [address] [facility] [place] [address] BUN/Creatini ne Ratio May 13, 2023 6:43am 23.8 10.0-20.00 [facility] [id number] [address] [facility] [place] [address] Glucose Level April 15, 2023 5:54am 171 mg/dL [facility] [id number] [address] [facility] [place] [address] Glucose Level May 13, 2023 6:43am 162 mg/dL [facility] [id number] [address] [facility] [place] [address] Bedside Glucose April 16, 2023 11:21am 180 MG/DL Followed protocol Point of Care [address] [facility] [place] [address] Bedside Glucose May 13, 2023 11:01am 252 MG/DL - Point of Care [address] [facility] [place] [address] Calculated Osmolality April 15, 2023 5:54am 285 275-295 [facility] [id number] [address] [facility] [place] [address] Calculated Osmolality May 13, 2023 6:43am 284 275-295 [facility] [id number] [address] [facility] [place] [address] Calcium Level April 15, 2023 5:54am 8.9 mg/dL 8.5-10.1 [facility] [id number] [address] [facility] [place] [address] Calcium Level May 13, 2023 6:43am 9.2 mg/dL 8.5-10.1 [facility] [id number] [address] [place] [address] [place] [address] Troponin I High Sensitivity May 08, 2023 4:04pm 11.1 ng/L 0.00-49.9 | | FEMALE: | MALE: || Low Risk (Negative) | < 50 ng/L | < 80 ng/L | | Intermediate Risk | 50 - 110 ng/L | 80 - 110 ng/L | | High Risk (Critical)| >= 111 ng/L | >= 111 ng/L | | | [facility] [id number] [address] [place] [address] Magnesium Level May 13, 2023 6:43am 2.0 mg/dL 1.8-2.4 [facility] [id number] [address] [place] [address] [place] [address] Aspartate Amino Transf (AST/SGOT) April 13, 2023 6:55am 52 U/L [facility] [id number] [address] [facility] [place] [address] Aspartate Amino Transf (AST/SGOT) May 13, 2023 6:43am 43 U/L [facility] [id number] [address] [place] [address] Alanine Aminotransfe rase (ALT/SGPT) April 13, 2023 6:55am 42 U/L 13- [facility] [id number] [address] [facility] [place] [address] Alanine Aminotransfe rase (ALT/SGPT) May 13, 2023 6:43am 50 U/L 13-56 [facility] [id number] [address] [facility] [place] [address] Alkaline Phosphatase April 13, 2023 6:55am 98 U/L 45-117 [facility] [id number] [address] [facility] [place] [address] Alkaline Phosphatase May 13, 2023 6:43am 101 U/L 45-117 [facility] [id number] [address] [facility] [place] [address] Total Bilirubin April 13, 2023 6:55am 1.07 mg/dL 0.20-1.00 [facility] [id number] [address] [facility] [place] [address] Total Bilirubin May 13, 2023 6:43am 0.41 mg/dL 0.20-1.00 [facility] [id number] [address] [facility] [place] [address] Total Protein April 13, 2023 6:55am 6.5 g/dL 6.40-8.20 [facility] [id number] [address] [facility] [place] [address] Total Protein May 13, 2023 6:43am 7.1 g/dL 6.40-8.20 [facility] [id number] [address] [facility] [place] [address] Albumin April 13, 2023 6:55am 2.9 g/dL 3.4-5.0 [facility] [id number] [address] [facility] [place] [address] Albumin May 13, 2023 6:43am 3.0 g/dL 3.4-5.0 [facility] [id number] [address] [place] [address] Globulin April 13, 2023 6:55am 3.6 Ratio 1.3-4.9 [facility] [facility] [id number] [address] [facility] [place] [address] Globulin May 13, 2023 6:43am 4.1 Ratio 1.3-4.9 [facility] [id number] [address] [facility] [place] [address] Albumin/Glob ulin Ratio April 13, 2023 6:55am 0.8 Ratio 1.2-2.3 [facility] [id number] [address] [facility] [place] [address] Albumin/Glob ulin Ratio May 13, 2023 6:43am 0.7 Ratio 1.2-2.3 [facility] [id number] [address] [facility] [place] [address] Lactic Acid Level April 12, 2023 6:25pm 1.9 mmol/L 0.40-2.00 [facility] [id number] [address] [facility] [place] [address] Lactic Acid Level May 08, 2023 8:35pm 1.5 mmol/L 0.40-2.00 [facility] [id number] [address] [facility] [place] [address] Lipase May 08, 2023 4:04pm 51 U/L 13-75 [facility] [id number] 214 [facility] [address] Hemoglobin A1c April 13, 2023 6:55am 7.5 % 3.8-5.6 [facility] [id number] [address] [facility] [address] Estimated Average Glucose April 13, 2023 6:55am 169 mg/dL 70-126 The estimated average glucose (eAG) is an approximation of the average glucose concentration in mg/dL over the last 90 days.The 2010 "Standards of Medical Care in Diabetes" of the [place] [employer] includes the following interpretations of Hemoglobin A1c results: >=6.5% Diagnostic of Diabetes 5.7-6.4% IFG/IGT ("Pre-Diabetes" ) [facility] [id number] [address] [facility] [place] [address] B-Type Natriuretic Peptide May 08, 2023 4:04pm 234 PG/ML 0-100 [place] [id number] 214 [facility] [place] [address] Thyroid Stimulating Hormone (TSH) April 13, 2023 6:55am 1.260 uIU/mL 0.358-3.74 [facility] [id number] 214 [facility] [place] [address] C-Reactive Protein April 15, 2023 5:54am 3.22 mg/dL 0.00-0.30 [facility] [id number] 214 [facility] [place] [address] C-Reactive Protein May 08, 2023 4:04pm 6.53 mg/dL 0.00-0.30 [facility] [id number] 214 [facility] [place] [address] Vancomycin Level Peak May 11, 2023 9:03pm 32.5 ug/mL 20.0-40.0 [facility] [id number] 214 [facility] [place] [address] Vancomycin Level Trough May 11, 2023 5:50pm 10.1 ug/mL 10.0-20.0 [facility] [id number] 214 [facility] [place] [address] Procalcitoni n May 08, 2023 4:04pm 0.69 [...] risk of severe sepsis and/or septic shock. [facility] [id number] 214 [facility] [place] [address] Influenza Type A (Rapid) April 12, 2023 6:20pm Negative Negative [facility] [id number] 214 [facility] [place] [address] Influenza Type B (Rapid) April 12, 2023 6:20pm Negative Negative [facility] [id number] [address] [place] [address] [place] [address] MRSA Surveillance Screen May 10, 2023 10:26am Negative NEGATIVE [facility] [id number] [address] [place] [address] [place] [address] SARS-CoV-2 (PCR) April 12, 2023 6:51pm Negative Negative Negative results do not preclude CKUA-[id number]-1oudxi tion and should not be used as [...] and not for any viruses or pathogens. [facility] [id number] [address] [place] [address] [place] [address] SARS-CoV-2 (PCR) May 08, 2023 4:23pm Negative Negative Negative results do not preclude BRCB-SqE-5rvtne tion and should not be used as [...] and not for any viruses or pathogens. [facility] [id number] 214 [facility] [place] [address] Soft Tissue MRSA (PCR) April 13, 2023 11:03am Negative NEGATIVE [facility] [id number] [address] [place] [address] [place] [address] Soft Tissue MRSA (PCR) May 08, 2023 5:57pm Negative NEGATIVE [facility] [id number] 214 [facility] [place] [address] Soft Tissue S. aureus (PCR) April 13, 2023 11:03am Negative NEGATIVE XPert MRSA/SA Soft Skin & Tissue Assay is included as part of Wound Culture.Further ID and Sensitivities to follow. [facility] [id number] 214 [facility] [place] [address] Soft Tissue S. aureus (PCR) May 08, 2023 5:57pm Negative NEGATIVE XPert MRSA/SA Soft Skin & Tissue Assay is included as part of Wound Culture.Further ID and Sensitivities to follow. [facility] [id number] 214 [facility] [place] [address] SARS-CoV-2 Antigen (Rapid) April 12, 2023 6:20pm [...] an EUA for use by authorized laboratories. [facility] [id number] 214 [facility] [place] [address] SARS-CoV-2 Antigen (Rapid) May 08, 2023 4:04pm [...] an EUA for use by authorized laboratories. [facility] [id number] 214 [facility] [place] [address] Microbiology Results Procedure Source Result Collection Date/Time Result Date/Time Result Comment Performing Site Blood Culture Blood No Growth after 5 days April 16, 2023 12:44am April 21, 2023 12:50am [facility] [id number] 214 [facility] [place] [address] Blood Culture Blood Enterococcus faecalis May 08, 2023 4:04pm May 11, 2023 9:33am [facility] [id number] 214 [facility] [place] [address] Gram Stain Drainage, Left Foot April 13, 2023 11:03am April 14, 2023 11:26am [facility] [id number] [address] [facility] [place] [address] Wound Culture Drainage, Left Foot Strep agalactiae - (Group B) April 13, 2023 11:03am April 15, 2023 10:43am [facility] [id number] [address] [facility] [place] [address] Gram Stain Foot, Left May 08, 2023 5:57pm May 09, 2023 11:58am [facility] [id number] 214 [facility] [place] [address] Wound Culture Foot, Left Enterococ faecalis - (Group D) May 08, 2023 5:57pm May 10, 2023 8:00am [facility] [id number] [address] [facility] [place] [address] Diagnostic Imaging Reports Report Dictated Date/Time Dictated By Status Magnetic Resonance Imaging Report April 12, 2023 8:56p salima Rodriguez MD completed [address], [address] Diagnostic Imaging Signed Patient: Grazyna Dale : [...] Signed By: Nay Rodriguez MD Signed Date/Time:04/12/232102 Cyber Security Manager: LIYA Dictated Date: 04/12/232055 Transcribed Date/Time:04/12/232055 CC: Moise Reed DO; Imer King DO ; Report Dictated Date/Time Dictated By Status Magnetic Resonance Imaging Report April 14, 2023 7:30a m Nay Rodriguez MD [address], [facility] Diagnostic Imaging Signed Patient: Grazyna Dale : [...] Signed By: Nay Rodriguez MD Signed Date/Time:04/14/23730 Cyber Security Manager: LIYA Dictated Date: 04/14/23729 Transcribed Date/Time:04/14/23729 CC: Moise Reed DO; Imer King DO ; Report Dictated Date/Time Dictated By Status Echocardiogram April 14, 2023 7:05am Pedro Paez DO completed [address], [address] ECHOCARDIOGRAM REPORT Signed Patient: Grazyna Dale : 1940 Female DOS: 04/14/23 07 Primary Care Physician: Moise Reed DO Ordering Physician: Gabriela Tellez PA-C Referring Physician: Location: [place] [address] Echocardiogram Report Name: Grazyna Dale Ordering Physician: [...] By: Pedro Paez DO Signed Date/Time:04/14/23 1237 Cyber Security Manager: ALEXANDER Dictated Date: 04/14/23 0705 Transcribed Date/Time:04/14/23 1237 CC: Gabriela Tellez PA-C; Moise Reed DO ; Report Dictated Date/Time Dictated By Status Magnetic Resonance Imaging Report April 16, 2023 11:38 am Luis nielsen [address], [address] Diagnostic Imaging Signed Patient: Grazyna Dale : [...] Signed By: Luis Strong Signed Date/Time:04/16/23 1144 Cyber Security Manager: [email or web address] Dictated Date: 04/16/23 1138 Transcribed Date/Time:04/16/23 1138 CC: Moise Reed DO; Tonya Brandt PA-C ; Report Dictated Date/Time Dictated By Status Magnetic Resonance Imaging Report May 08, 2023 4:42pm Maynor Le MD [address], [address] Diagnostic Imaging Signed Patient: Grazyna Dale : [...] By: Maynor Le MD Signed Date/Time:05/08/23 1645 Cyber Security Manager: [email or web address] Dictated Date: 05/08/231641 Transcribed Date/Time:05/08/231641 CC: Moise Reed DO; Tae Aldana MD ; Report Dictated Date/Time Dictated By Status Magnetic Resonance Imaging Report May 08, 2023 6:45pm Maynor Le MD completed [facility] [address] [facility], [address] Diagnostic Imaging Signed Patient: Grazyna Dale : [...] Signed By: Maynor Le MD Signed Date/Time:05/08/231908 Cyber Security Manager: LIYA Dictated Date: 05/08/231844 Transcribed Date/Time:05/08/231844 CC: Moise Reed DO; YAO Avitia ; Report Dictated Date/Time Dictated By Status Magnetic Resonance Imaging Report May 11, 2023 8:05am Luis Morel DO completed [address], [facility] Diagnostic Imaging Signed Patient: Grazyna Dale : [...] By: Luis Morel DO Signed Date/Time:05/11/23 0933 Cyber Security Manager: KEL Dictated Date: 05/11/23804 Transcribed Date/Time:05/11/23823 CC: Moise Reed DO; Tae Aldana MD ; Report Dictated Date/Time Dictated By Status Magnetic Resonance Imaging Report May 11, 2023 8:06am Luis Morel DO completed [address], [address] Diagnostic Imaging Signed Patient: Grazyna Dale : [...] Signed By: Luis Morel DO Signed Date/Time:05/11/23933 Cyber Security Manager: WHENRY Dictated Date: 05/11/23805 Transcribed Date/Time:05/11/23830 CC: Moise Reed DO; Tae Aldana MD ; Report Dictated Date/Time Dictated By Status Magnetic Resonance Imaging Report May 11, 2023 8:09am Luis Morel DO completed [address], [address] Diagnostic Imaging Signed Patient: Grazyna Dale : [...] Signed By: Luis Morel DO Signed Date/Time:05/11/2334 Cyber Security Manager: WHENRY Dictated Date: 05/11/2309 Transcribed Date/Time:05/11/23831 CC: [...] Insurance Providers Guarantor Grazyna G Chito Address [address] [place] [address] Contact Info. Home Phone: Payer Policy Id Coverage Id Subscriber's Name Subscriber Id Effective Date Expiration Date [employer] Medicare MCR [id number] Grazyna Dale [id number] Johan Hardin MCREP [id number] Grazyna Dlae [id number] Self Pay Self N/A Encounters Encounter Location(s) Arrival/Admit Date Discharge/Depart Date Provider(s) Discharged Inpatient [facility]Ac[facility] Care April 12, 2023 10:06pm April 16, 2023 1:40pm Oleg Bernabe DO Discharged Recurring [facility]-Diabetic Education April 28, 2023 9:25am April 28, 2023 11:59pm Moise Reed DO Discharged Inpatient [facility] May 10, 2023 8:38am May 13, 2023 12:13pm Enrique Sousa MD Recent Diagnosis Onset Date Cellulitis of left foot Fever Weakness Atrial fibrillation CKD (chronic kidney disease) Chronic anticoagulation Diabetes Diabetic foot ulcer [id number] GERD (gastroesophageal reflux disease) Hyperlipidemia Hypertension Hypothyroidism [...] CKD (chronic kidney disease) 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
--- OUTSIDE RECORDS SUMMARY | 2023-10-17 00:52 | External Medical Summary ---
Author Name Unknown Address Unknown Organization L1E:[facility] [address] [place] [address] Laboratory Report Ordering Provider Test Date Status Merry Nunez 05/13/2023 06:43 Final Observation Date Value Abnormality Reference (Units ) Status White Blood Count 05/13/2023 06:49 5.9 Normal 4.1-10.2 (10 3/uL) Final RBC 05/13/2023 06:49 4.40 Normal 3.80-5.20 (10 6/uL) Final Hemoglobin 05/13/2023 06:49 12.7 Normal 11.5-15.5 (g/dL) Final HCT 05/13/2023 06:49 37.8 Normal 35-46 (%) Final MCV 05/13/2023 06:49 85.9 Normal 82.0-98.0 (fL) Final MCH 05/13/2023 06:49 28.9 Normal 27.0-34.0 (pg) Final MCHC 05/13/2023 06:49 33.6 Normal 31.0-36.0 (g/dL) Final Erythrocyte distribution width [Entitic volume] 05/13/2023 06:49 46.1 Normal 37-49 (fL) Final RDW 05/13/2023 06:49 14.5 Normal 11.8-14.8 (%) Final Platelets 05/13/2023 06:49 232 Normal 150-360 (10 3/uL) Final Mean Platelet Volume 05/13/2023 06:49 10.3 Normal 9.4-12.3 (fL) Final Segs 05/13/2023 06:49 53.8 Normal 42-75 (%) Final Lymphs, absolute 05/13/2023 06:49 34.0 Normal 14-42 (%) Final Monos 05/13/2023 06:49 8.6 Normal 4-13 (%) Final Eosinophils 05/13/2023 06:49 2.0 Normal 0-6 (%) Final Basos 05/13/2023 06:49 0.8 Normal 0-2 (%) Final Immature Granulocyte, Percent 05/13/2023 06:49 0.8 Above high normal 0.0-0.7 (%) Final NRBC% (Auto) 05/13/2023 06:49 0.0 Normal 0.0-0.2 (/100 WBC) Final Absolute Segs 05/13/2023 06:49 3.2 Normal 1.8-6.6 (10 3uL) Final Lymphocytes [#/volume] in Unspecified specimen by Automated count 05/13/2023 06:49 2.0 Normal 1.0-3.1 (10 3/uL) Final Monos, Abs 05/13/2023 06:49 0.5 Normal 0.0-1.0 (10 3uL) Final Eos, Abs 05/13/2023 06:49 0.1 Normal 0.0-0.5 (10 3uL) Final Basos, Abs 05/13/2023 06:49 0.1 Normal 0.0-0.1 (10 3/uL) Final Granulocytes [#/volume] in Blood by Automated count 05/13/2023 06:49 0.1 Above high normal 0.0-0.0 (10 3/uL) Final NRBC # (Auto) 05/13/2023 06:49 0.000 Normal 0.000-0.012 (10 3/uL) Final Performing Location [address] [address]
--- OUTSIDE RECORDS SUMMARY | 2023-10-17 00:52 | External Medical Summary ---
Author Name Unknown Address Unknown Organization : Laboratory Report Ordering Provider Test Date Status Merry Nunez 05/13/2023 11:01 Final Observation Date Value Abnormality Reference (Units ) Status Glucose, capillary POC (i-STAT) 05/13/2023 11:05 252 Above high normal 70-99 (MG/DL) Final Performing Location
--- OUTSIDE RECORDS SUMMARY | 2023-10-17 00:53 | External Medical Summary | Continuity of Care Document ---
Author Name Unknown Address [address] [place] [address] Phone Organization [facility] Address [address] [place] [address] Phone Support Name Relationship Address Phone Kandi Swanson Daughter [address] [place] [address] Moise Reed Primary Care Provider [address] [place] [address] Imer King Emergency Provider [address] [place] [address] Oleg Bernabe Admit Provider [address] [place] [address] Tae Aldana Emergency Provider [address] [place] [address] Enrique Sousa Admit Provider [address] [place] [address] Chief Complaint and Reason for Visit Chief Complaint Cellulitis,foot Diabetic Education L foot cellulitis, diabetic ulcer Reason for Visit Cellulitis of left f oot Fever Weakness Atrial fibrillation CKD (chronic kidney disease) Chronic anticoagulation Diabetes Diabetic foot ulcer [id number] GERD (gastroesophageal reflux disease) Hyperlipidemia Hypertension Hypothyroidism [...] PO Every Night May 07, 2020 9:59am [facility] er 2019 3:49pm Glimepiride Disconti nued 4 MG PO Every Morning May 17, 2020 10:43am [facility] 2019 11:39a m administer with breakfast Lancets Disconti nued 0 .ROUTE .MEDSUPPLY 100 [facility] er 2019 12:00am May 23, 2021 7:48am As directed twice a day Dx E11.9 Blood Sugar Diagnostic (Onetouch Ultra Blue Test Strip) strip Disconti nued 0 .ROUTE .MEDSUPPLY 100 [facility] er 2019 12:00am May 23, 2021 7:48am As directed twice a day Dx E11.9 Metoprolol Tartrate (Lopressor) 25 mg tablet Disconti nued 25 MG PO Twice Daily 60 [facility] er 2019 11:58am January 22, 2021 9:46am Apixaban (Eliquis) 5 mg tablet Disconti nued 5 MG PO Twice Daily 60 [facility] er 2019 2:53pm ua 2020 4:43pm Insulin [...] pen Disconti nued 25 UNIT SUBCUT daily [facility] r 2019 10:06am [facility] [...] 2021 8:59am Lancets Disconti nued 0 .ROUTE .[facility] 100 May 23, 2021 7:48am Dece er 2020 10:44a m As directed twice a day Dx E11.9 Blood Sugar Diagnostic (Precision Q-I-D) strip Disconti nued 0 .ROUTE .[facility] 100 May 23, 2021 7:48am May 08, 2023 4:28pm As directed twice a day Dx E11.9 Insulin Degludec (Tresiba Flextouch U-200) 200 unit/mL (3 mL) insulin pen Disconti nued 38 UNIT SUBCUT Every Night June 07, 2021 10:04am [facility] er 2020 7:22am Levothyroxine Sodium (Levothyroxin e) [...] .MEDSUPPLY 100 [facility] r 2020 10:44am [facility] 2020 1:43pm As directed twice a day Dx E11.9 Gabapentin Disconti nued 800 MG PO .COMPLEX 180 [facility] r 2020 10:49am [facility] er 2020 1:43pm 800 mg PO take one tablet at lunchtime and one tablet at bedtime; Gabapentin Disconti nued 800 MG PO .COMPLEX 180 [facility] r 2020 1:43pm [facility] er 2020 9:46am 800 mg PO take one tablet at lunchtime and one tablet at bedtime; Lancets Disconti nued 0 .ROUTE .MEDSUPPLY 100 [facility] r 2020 1:43pm [facility] er 2021 11:27a m As directed twice [...] 29, 2018 12:00am March 22, 2018 2:37pm [place]-3/Dha/E pa/Fish Oil (Fish Oil [place]-3 Ec 1,200 Mg) 1 EACH Capsule.Dr Chrissie [...] 2022 12:00am June 05, 2022 12:13p m [place] Fatty Acids ([place]-3) 1,000 MG capsule Disconti nued 1000 MG [...] Disconti nued 50 MG PO Twice Daily [facility] 2021 1:00am May 08, 2023 [...] UAL As Directed May 08, 2023 12:00am Krill/[place]-3 /Dha/Epa/Lipi ds ([place]-3 Krill Oil 500 Mg Sfgl) 1 EACH [...] Disconti nued 500 MG [facility] Q24H [facility] 12:00am [facility] r 2019 10:01a m Tramadol Hcl Disconti nued 50 MG [facility] Q8H [facility] 12:00am [facility] r 2019 12:02a [...] nued MG PO September 06, 2020 12:00am [facility] er 2019 9:43am Insulin Degludec (Tresiba Flextouch [...] ua ry 2020 10:07a m Hydrocodone/A cetaminophen ([place] 5-325 Tablet) 5-325 mg tablet Disconti nued 1 TAB PO Twice Daily 60 30 r 2019 1:02am Docusate Sodium Disconti nued 100 MG PO Twice Daily November 19, 2020 1:00am February 28, 2021 11:13a m Hydrocodone/A cetaminophen ([place] 5-325 Tablet) 5-325 mg tablet Disconti nued [...] r 2020 1:00am May 08, 2023 4:25pm [place]-3 Fatty Acids (Fish Oil Concentrate) 1,000 mg capsule Disconti nued 1000 MG PO Twice Daily 60 [facility] r 2020 1:00am May 03, 2022 11:24a m Immunizations Immunization Event Date Not Given Reason Dose Number Crisis Intervention Counselor Lot Number Vaccine Information Statement (VIS) Detail SARS-COV-2 (COVID-19) MODERNA July 07, 2021 [id number] Fluzone QUAD August 16, 2017 Fluzone QUAD August 17, 2018 Influenza, high-dose, Quadrivalent October 18, 2020 [id number] Influenza, high-dose, Quadrivalent October 04, 2021 [id number] Pneumococcal 13-Valent Conjugate Vaccine September 08, 2018 [...] April 15, 2023 5:54am 5.1 10^3/uL 4.1-10.2 [facility] [id number] [address] [facility] [address] White Blood Count May 12, 2023 6:00am 4.9 10^3/uL 4.1-10.2 [facility] [id number] [address] [facility] [place] [address] Red Blood Count April 15, 2023 5:54am 4.44 10^6/uL 3.80-5.20 [facility] [id number] [address] [facility] [place] [address] Red Blood Count May 12, 2023 6:00am 4.18 10^6/uL 3.80-5.20 [facility] [id number] [address] [facility] [place] [address] Hemoglobin April 15, 2023 5:54am 12.5 g/dL 11.5-15.5 [facility] [id number] [address] [facility] [place] [address] Hemoglobin May 12, 2023 6:00am 12.1 g/dL 11.5-15.5 [facility] [id number] [address] [facility] [place] [address] Hematocrit April 15, 2023 5:54am 38.6 % 35-46 [facility] [id number] [address] [facility] [place] [address] Hematocrit May 12, 2023 6:00am 36.0 % 35-46 [facility] [id number] [address] [place] [address] Mean Corpuscular Volume April 15, 2023 5:54am 86.9 fL 82.0-98.0 [facility] [id number] [address] [place] [address] Mean Corpuscular Volume May 12, 2023 6:00am 86.1 fL 82.0-98.0 [facility] [id number] [address] [place] [address] Mean Corpuscular Hemoglobin April 15, 2023 5:54am 28.2 pg 27.0-34.0 [facility] [id number] [address] [place] [address] Mean Corpuscular Hemoglobin May 12, 2023 6:00am 28.9 pg 27.0-34.0 [facility] [id number] [address] [place] [address] Mean Corpuscular Hemoglobin Concent April 15, 2023 5:54am 32.4 g/dL 31.0-36.0 [facility] [id number] [address] [place] [address] Mean Corpuscular Hemoglobin Concent May 12, 2023 6:00am 33.6 g/dL 31.0-36.0 [facility] [id number] [address] [place] [address] RDW Standard Deviation April 15, 2023 5:54am 46.8 fL 37-49 [facility] [id number] [address] [place] [address] RDW Standard Deviation May 12, 2023 6:00am 46.5 fL 37-49 [facility] [id number] [address] [place] [address] RDW Coefficient of Variation April 15, 2023 5:54am 14.7 % 11.8-14.8 [facility] [id number] [address] [place] [address] RDW Coefficient of Variation May 12, 2023 6:00am 14.7 % 11.8-14.8 [facility] [id number] [address] [facility] [place] [address] Platelet Count April 15, 2023 5:54am 191 10^3/uL 150-360 [facility] [id number] [address] [facility] [place] [address] Platelet Count May 12, 2023 6:00am 200 10^3/uL 150-360 [facility] [id number] [address] [facility] [place] [address] Mean Platelet Volume April 15, 2023 5:54am 10.4 fL 9.4-12.3 [facility] [id number] [address] [facility] [place] [address] Mean Platelet Volume May 12, 2023 6:00am 10.4 fL 9.4-12.3 [facility] [id number] [address] [facility] [place] [address] Neutrophils (%) (Auto) April 15, 2023 5:54am 49.5 % 42-75 [facility] [id number] [address] [facility] [place] [address] Neutrophils (%) (Auto) May 12, 2023 6:00am 49.3 % 42-75 [facility] [id number] [address] [facility] [place] [address] Lymphocytes (%) (Auto) April 15, 2023 5:54am 33.1 % 14-42 [facility] [id number] [address] [facility] [place] [address] Lymphocytes (%) (Auto) May 12, 2023 6:00am 40.8 % 14-42 [facility] [id number] [address] [facility] [place] [address] Monocytes (%) (Auto) April 15, 2023 5:54am 10.7 % 4-13 [facility] [id number] [address] [facility] [place] [address] Monocytes (%) (Auto) May 12, 2023 6:00am 7.1 % 4-13 [facility] [id number] [address] [facility] [place] [address] Eosinophils (%) (Auto) April 15, 2023 5:54am 5.5 % 0-6 [facility] [id number] [address] [place] [address] Eosinophils (%) (Auto) May 12, 2023 6:00am 2.0 % 0-6 [facility] [id number] [address] [facility] [address] Basophils (%) (Auto) April 15, 2023 5:54am 1.0 % 0-2 [facility] [id number] [address] [facility] [place] [address] Basophils (%) (Auto) May 12, 2023 6:00am 0.6 % 0-2 [facility] [id number] [address] [facility] [address] Immature Granulocytes % April 15, 2023 5:54am 0.2 % 0.0-0.7 [facility] [id number] [address] [facility] [place] [address] Immature Granulocytes % May 12, 2023 6:00am 0.2 % 0.0-0.7 [facility] [id number] [address] [facility] [place] [address] Neutrophils # (Auto) April 15, 2023 5:54am 2.5 10^3uL 1.8-6.6 [facility] [id number] [address] [facility] [place] [address] Neutrophils # (Auto) May 12, 2023 6:00am 2.4 10^3uL 1.8-6.6 [facility] [id number] [address] [facility] [place] [address] Lymphocytes # (Auto) April 15, 2023 5:54am 1.7 10^3/uL 1.0-3.1 [facility] [id number] [address] [facility] [place] [address] Lymphocytes # (Auto) May 12, 2023 6:00am 2.0 10^3/uL 1.0-3.1 [facility] [id number] [address] [facility] [place] [address] Monocytes # (Auto) April 15, 2023 5:54am 0.6 10^3uL 0.0-1.0 [facility] [id number] [address] [facility] [place] [address] Monocytes # (Auto) May 12, 2023 6:00am 0.4 10^3uL 0.0-1.0 [facility] [id number] [address] [facility] [place] [address] Eosinophils # (Auto) April 15, 2023 5:54am 0.3 10^3uL 0.0-0.5 [facility] [id number] [address] [facility] [place] [address] Eosinophils # (Auto) May 12, 2023 6:00am 0.1 10^3uL 0.0-0.5 [facility] [id number] [address] [facility] [place] [address] Basophils # (Auto) April 15, 2023 5:54am 0.1 10^3/uL 0.0-0.1 [facility] [id number] [address] [facility] [place] [address] Basophils # (Auto) May 12, 2023 6:00am 0.0 10^3/uL 0.0-0.1 [facility] [id number] [address] [facility] [place] [address] Erythrocyte Sedimentatio n Rate April 15, 2023 5:54am 33 mm/hr 0-30 [facility] [id number] [address] [facility] [place] [address] Erythrocyte Sedimentatio n Rate May 08, 2023 3:36pm 19 mm/hr 0-30 [facility] [id number] [address] [facility] [place] [address] Prothrombin Time May 08, 2023 4:04pm 18.4 SEC 9.8-12.7 [facility] [id number] [address] [facility] [place] [address] INR Internationa l Normalized Ratio May 08, 2023 4:04pm 1.64 [facility] [id number] [address] [place] [address] Activated Partial Thromboplast Time May 08, 2023 4:04pm 63.0 SEC 25-36 [facility] [id number] [address] [place] [address] Urine Color April 12, 2023 7:25pm Yellow Yellow [facility] [id number] [address] [place] [address] Urine Color May 08, 2023 4:44pm Yellow Yellow [facility] [id number] [address] [place] [address] Urine Clarity April 12, 2023 7:25pm Clear Clear [facility] [id number] [address] [place] [address] Urine Clarity May 08, 2023 4:44pm Clear Clear [facility] [id number] [address] [place] [address] Urine pH April 12, 2023 7:25pm 5.5 6.0-8.0 [facility] [id number] [address] [place] [address] Urine pH May 08, 2023 4:44pm 7.0 6.0-8.0 [facility] [id number] [address] [place] [address] Urine Specific [place] April 12, 2023 7:25pm 1.010 1.000-1.03 0 [facility] [id number] [address] [place] [address] Urine Specific [place] May 08, 2023 4:44pm 1.018 1.000-1.03 0 [facility] [id number] [address] [place] [address] Urine Protein April 12, 2023 7:25pm Negative Negative [facility] [id number] [address] [place] [address] Urine Protein May 08, 2023 4:44pm Trace Negative [facility] [id number] [address] [place] [address] Urine Glucose (UA) April 12, 2023 7:25pm Negative Negative [facility] [id number] [address] [place] [address] Urine Glucose (UA) May 08, 2023 4:44pm Negative Negative [facility] [id number] [address] [place] [address] Urine Ketones April 12, 2023 7:25pm Negative Negative [facility] [id number] [address] [place] [address] Urine Ketones May 08, 2023 4:44pm Negative Negative [facility] [id number] [address] [place] [address] Urine Occult Blood April 12, 2023 7:25pm Negative Negative [facility] [id number] [address] [place] [address] Urine Occult Blood May 08, 2023 4:44pm Negative Negative [facility] [id number] [address] [place] [address] Urine Nitrate April 12, 2023 7:25pm Negative Negative [facility] [id number] [address] [place] [address] Urine Nitrate May 08, 2023 4:44pm Negative Negative [facility] [id number] [address] [place] [address] Urine Bilirubin April 12, 2023 7:25pm Negative Negative [facility] [id number] [address] [place] [address] Urine Bilirubin May 08, 2023 4:44pm Negative Negative [facility] [id number] [address] [place] [address] Urine Urobilinogen April 12, 2023 7:25pm 0.2 0.2-1.0 [facility] [id number] [address] [place] [address] Urine Urobilinogen May 08, 2023 4:44pm 0.2 0.2-1.0 [facility] [id number] [address] [place] [address] Urine Leukocyte Esterase April 12, 2023 7:25pm Negative Negative [facility] [id number] [address] [place] [address] Urine Leukocyte Esterase May 08, 2023 4:44pm Negative Negative [facility] [id number] [address] [place] [address] Urine WBC May 08, 2023 4:44pm 0-2 /HPF 0-3 [facility] [id number] [address] [place] [address] Urine Culture Indicated April 12, 2023 7:25pm No Culture not indicated. [facility] [id number] [address] [place] [address] Urine Culture Indicated May 08, 2023 4:44pm No Culture not indicated. [facility] [id number] [address] [place] [address] Urine Bacteria May 08, 2023 4:44pm Few /HPF NONE SEEN [facility] [id number] [address] [place] [address] Sodium Level April 15, 2023 5:54am 138 mmol/L 136-145 [facility] [id number] [address] [place] [address] Sodium Level May 12, 2023 6:00am 138 mmol/L 136-145 [facility] [id number] [address] [place] [address] Potassium Level April 15, 2023 5:54am 4.0 mmol/L 3.5-5.1 [facility] [id number] [address] [place] [address] Potassium Level May 12, 2023 6:00am 3.9 mmol/L 3.5-5.1 [facility] [id number] [address] [place] [address] Chloride Level April 15, 2023 5:54am 108 mmol/L 98-107 [facility] [id number] [address] [place] [address] Chloride Level May 12, 2023 6:00am 110 mmol/L 98-107 [facility] [id number] [address] [facility] [place] [address] Carbon Dioxide Level April 15, 2023 5:54am 26 mmol/L [facility] [id number] [address] [facility] [place] [address] Carbon Dioxide Level May 12, 2023 6:00am 27 mmol/L [facility] [id number] [address] [facility] [place] [address] Anion Gap April 15, 2023 5:54am 4.0 MMOL/L 1.0-15.0 [facility] [id number] [address] [facility] [place] [address] Anion Gap May 12, 2023 6:00am 1.0 MMOL/L 1.0-15.0 [facility] [id number] [address] [facility] [place] [address] Blood Urea Nitrogen April 15, 2023 5:54am 24 mg/dL 06-02 [facility] [id number] [address] [facility] [place] [address] Blood Urea Nitrogen May 12, 2023 6:00am 23 mg/dL 06-02 [facility] [id number] [address] [facility] [place] [address] Creatinine April 15, 2023 5:54am 1.20 mg/dL 0.55-1.02 [facility] [id number] [address] [facility] [place] [address] Creatinine May 12, 2023 6:00am 0.93 mg/dL 0.55-1.02 [facility] [id number] [address] [facility] [place] [address] Estimated GFR (MDRD) April 15, 2023 5:54am 43 UNITS= mL/min/1.73m squared Unable to flag low results Results less than 60 may warrant further investigationPa tients race is not known. If the patient is , multiply the calculated GFR result provided by 1.21. GFR Estimate should not be used to alter drug dosages. [facility] [id number] [address] [facility] [place] [address] Estimated GFR (MDRD) May 12, 2023 6:00am 58 UNITS= mL/min/1.73m squared Unable to flag low results Results less than 60 may warrant further investigationPa tients race is not known. If the patient is , multiply the calculated GFR result provided by 1.21. GFR Estimate should not be used to alter drug dosages. [facility] [id number] [address] [facility] [place] [address] BUN/Creatini ne Ratio April 15, 2023 5:54am 20.1 10.0-20.00 [facility] [id number] [address] [facility] [place] [address] BUN/Creatini ne Ratio May 12, 2023 6:00am 24.6 10.0-20.00 [facility] [id number] [address] [facility] [place] [address] Glucose Level April 15, 2023 5:54am 171 mg/dL [facility] [id number] [address] [facility] [place] [address] Glucose Level May 12, 2023 6:00am 165 mg/dL 99 [facility] [id number] [address] [facility] [place] [address] Bedside Glucose April 16, 2023 11:21am 180 MG/DL Followed protocol Point of Care [address] [facility] [place] [address] Bedside Glucose May 12, 2023 7:42pm 146 MG/DL -99 Followed protocol Point of Care [address] [facility] [place] [address] Calculated Osmolality April 15, 2023 5:54am 285 275-295 [facility] [id number] [address] [facility] [place] [address] Calculated Osmolality May 12, 2023 6:00am 283 275-295 [facility] [id number] [address] [facility] [place] [address] Calcium Level April 15, 2023 5:54am 8.9 mg/dL 8.5-10.1 [facility] [id number] [address] [facility] [place] [address] Calcium Level May 12, 2023 6:00am 9.2 mg/dL 8.5-10.1 [facility] [id number] [address] [facility] [place] [address] Troponin I High Sensitivity May 08, 2023 4:04pm 11.1 ng/L 0.00-49.9 | | FEMALE: | MALE: || Low Risk (Negative) | < 50 ng/L | < 80 ng/L | | Intermediate Risk | 50 - 110 ng/L | 80 - 110 ng/L | | High Risk (Critical)| >= 111 ng/L | >= 111 ng/L | | | [facility] [id number] [address] [facility] [place] [address] Magnesium Level May 12, 2023 6:00am 1.6 mg/dL 1.8-2.4 [facility] [id number] [address] [facility] [place] [address] Aspartate Amino Transf (AST/SGOT) April 13, 2023 6:55am 52 U/L [facility] [id number] [address] [facility] [place] [address] Aspartate Amino Transf (AST/SGOT) May 12, 2023 6:00am 49 U/L [facility] [id number] [address] [facility] [place] [address] Alanine Aminotransfe rase (ALT/SGPT) April 13, 2023 6:55am 42 U/L 13-56 [facility] [id number] [address] [facility] [address] Alanine Aminotransfe rase (ALT/SGPT) May 12, 2023 6:00am 51 U/L 13-56 [facility] [id number] [address] [facility] [address] Alkaline Phosphatase April 13, 2023 6:55am 98 U/L 45-117 [facility] [id number] [address] [facility] [place] [address] Alkaline Phosphatase May 12, 2023 6:00am 102 U/L 45-117 [facility] [id number] [address] [facility] [place] [address] Total Bilirubin April 13, 2023 6:55am 1.07 mg/dL 0.20-1.00 [facility] [id number] [address] [facility] [place] [address] Total Bilirubin May 12, 2023 6:00am 0.46 mg/dL 0.20-1.00 [facility] [id number] [address] [facility] [place] [address] Total Protein April 13, 2023 6:55am 6.5 g/dL 6.40-8.20 [facility] [id number] [address] [facility] [place] [address] Total Protein May 12, 2023 6:00am 6.8 g/dL 6.40-8.20 [facility] [id number] [address] [facility] [address] Albumin April 13, 2023 6:55am 2.9 g/dL 3.4-5.0 [facility] [id number] [address] [facility] [place] [address] Albumin May 12, 2023 6:00am 2.9 g/dL 3.4-5.0 [facility] [id number] [address] [facility] [place] [address] Globulin April 13, 2023 6:55am 3.6 Ratio 1.3-4.9 [facility] [id number] [address] [facility] [place] [address] Globulin May 12, 2023 6:00am 3.9 Ratio 1.3-4.9 [facility] [id number] [address] [facility] [place] [address] Albumin/Glob ulin Ratio April 13, 2023 6:55am 0.8 Ratio 1.2-2.3 [facility] [id number] [address] [facility] [place] [address] Albumin/Glob ulin Ratio May 12, 2023 6:00am 0.7 Ratio 1.2-2.3 [facility] [id number] [address] [facility] [place] [address] Lactic Acid Level April 12, 2023 6:25pm 1.9 mmol/L 0.40-2.00 [facility] [id number] [address] [facility] [place] [address] Lactic Acid Level May 08, 2023 8:35pm 1.5 mmol/L 0.40-2.00 [facility] [id number] [address] [facility] [place] [address] Lipase May 08, 2023 4:04pm 51 U/L 13-75 [facility] [id number] [address] [facility] [place] [address] Hemoglobin A1c April 13, 2023 6:55am 7.5 % 3.8-5.6 [facility] [id number] [address] [facility] [place] [address] Estimated Average Glucose April 13, 2023 6:55am 169 mg/dL 70-126 The estimated average glucose (eAG) is an approximation of the average glucose concentration in mg/dL over the last 90 days.The 2010 "Standards of Medical Care in Diabetes" of the [place] [employer] includes the following interpretations of Hemoglobin A1c results: >=6.5% Diagnostic of Diabetes 5.7-6.4% IFG/IGT ("Pre-Diabetes" ) [facility] [id number] [address] [facility] [place] [address] B-Type Natriuretic Peptide May 08, 2023 4:04pm 234 PG/ML 0-100 [facility] [id number] [address] [facility] [place] [address] Thyroid Stimulating Hormone (TSH) April 13, 2023 6:55am 1.260 uIU/mL 0.358-3.74 [facility] [id number] [address] [facility] [place] [address] C-Reactive Protein April 15, 2023 5:54am 3.22 mg/dL 0.00-0.30 [facility] [id number] [address] [facility] [place] [address] C-Reactive Protein May 08, 2023 4:04pm 6.53 mg/dL 0.00-0.30 [facility] [id number] [address] [facility] [place] [address] Vancomycin Level Peak May 11, 2023 9:03pm 32.5 ug/mL 20.0-40.0 [facility] [id number] [address] [facility] [place] [address] Vancomycin Level Trough May 11, 2023 5:50pm 10.1 ug/mL 10.0-20.0 [facility] [id number] [address] [place] [address] [place] [id number] Procalcitoni n May 08, 2023 4:04pm 0.69 [...] risk of severe sepsis and/or septic shock. [facility] [id number] [address] [facility] [place] [address] Influenza Type A (Rapid) April 12, 2023 6:20pm Negative Negative [facility] [id number] [address] [facility] [place] [address] Influenza Type B (Rapid) April 12, 2023 6:20pm Negative Negative [facility] [id number] [address] [facility] [place] [address] MRSA Surveillance Screen May 10, 2023 10:26am Negative NEGATIVE [facility] [id number] [address] [facility] [place] [address] SARS-CoV-2 (PCR) April 12, 2023 6:51pm Negative Negative Negative results do not preclude [id number] tion and should not be used as [...] and not for any viruses or pathogens. [facility] [id number] [address] [facility] [place] [address] SARS-CoV-2 (PCR) May 08, 2023 4:23pm Negative Negative Negative results do not preclude [id number] tion and should not be used as [...] and not for any viruses or pathogens. [facility] [id number] [address] [facility] [place] [address] Soft Tissue MRSA (PCR) April 13, 2023 11:03am Negative NEGATIVE [facility] [id number] [address] [facility] [place] [address] Soft Tissue MRSA (PCR) May 08, 2023 5:57pm Negative NEGATIVE [facility] [id number] [address] [facility] [place] [address] Soft Tissue S. aureus (PCR) April 13, 2023 11:03am Negative NEGATIVE XPert MRSA/SA Soft Skin & Tissue Assay is included as part of Wound Culture.Further ID and Sensitivities to follow. [facility] [id number] [address] [facility] [place] [address] Soft Tissue S. aureus (PCR) May 08, 2023 5:57pm Negative NEGATIVE XPert MRSA/SA Soft Skin & Tissue Assay is included as part of Wound Culture.Further ID and Sensitivities to follow. [facility] [id number] [address] [facility] [place] [address] SARS-CoV-2 Antigen (Rapid) April 12, 2023 6:20pm [...] an EUA for use by authorized laboratories. [facility] [id number] [address] [facility] [place] [address] SARS-CoV-2 Antigen (Rapid) May 08, 2023 4:04pm [...] an EUA for use by authorized laboratories. [facility] [id number] [address] [facility] [place] [address] Microbiology Results Procedure Source Result Collection Date/Time Result Date/Time Result Comment Performing Site Blood Culture Blood No Growth after 5 days April 16, 2023 12:44am April 21, 2023 12:50am [facility] [id number] [address] [facility] [place] [address] Blood Culture Blood Enterococcus faecalis May 08, 2023 4:04pm May 11, 2023 9:33am [facility] [id number] [address] [facility] [place] [address] Gram Stain Drainage, Left Foot April 13, 2023 11:03am April 14, 2023 11:26am [facility] [id number] [address] [facility] [place] [address] Wound Culture Drainage, Left Foot Strep agalactiae - (Group B) April 13, 2023 11:03am April 15, 2023 10:43am [facility] [id number] [address] [facility] [place] [address] Gram Stain Foot, Left May 08, 2023 5:57pm May 09, 2023 11:58am [facility] [id number] [address] [facility] [place] [address] Wound Culture Foot, Left Enterococ faecalis - (Group D) May 08, 2023 5:57pm May 10, 2023 8:00am [facility] [id number] [address] [facility] [place] [address] Diagnostic Imaging Reports Report Dictated Date/Time Dictated By Status Magnetic Resonance Imaging Report April 12, 2023 8:56p salima Rodriguez MD completed [address], [address] Diagnostic Imaging Signed Patient: Grazyna Dale : [...] Signed By: Nay Rodriguez MD Signed Date/Time:04/12/232102 National Park Ranger: LIYA Dictated Date: 04/12/232055 Transcribed Date/Time:04/12/232055 CC: Moise Reed DO; Imer King DO ; Report Dictated Date/Time Dictated By Status Magnetic Resonance Imaging Report April 14, 2023 7:30a m Nay Rodriguez MD completed [address], [address] Diagnostic Imaging Signed Patient: Grazyna Dale : [...] Signed By: Nay Rodriguez MD Signed Date/Time:04/14/23730 National Park Ranger: LIYA Dictated Date: 04/14/23729 Transcribed Date/Time:04/14/23729 CC: Moise Reed DO; Imer King DO ; Report Dictated Date/Time Dictated By Status Echocardiogram April 14, 2023 7:05am Pedro Paez DO completed [address], [address] ECHOCARDIOGRAM REPORT Signed Patient: Grazyna Dale : 1940 Female DOS: 04/14/23 0705 Primary Care Physician: Moise Reed DO Ordering Physician: Gabriela Tellez PA-C Referring Physician: Location: [place] [address] Echocardiogram Report Name: Grazyna Dale Ordering Physician: Gabriela Pang Patient Location: ^[facility]A Gender: Female : 1940 Race: [place] Age: [...] By: Pedro Paez DO Signed Date/Time:04/14/23 1237 National Park Ranger: ALEXANDER Dictated Date: 04/14/23 0705 Transcribed Date/Time:04/14/23 1237 CC: Gabriela Tellez PA-C; Moise Reed DO ; Report Dictated Date/Time Dictated By Status Magnetic Resonance Imaging Report April 16, 2023 11:38 am Luis Strong [address], [address] Diagnostic Imaging Signed Patient: Grazyna Dale : [...] Signed By: Luis Strong Signed Date/Time:04/16/23 1144 National Park Ranger: AYUSHCRIBMarci Dictated Date: 04/16/23 1138 Transcribed Date/Time:04/16/23 1138 CC: Moise Reed DO; Tonya Brandt PA-C ; Report Dictated Date/Time Dictated By Status Magnetic Resonance Imaging Report May 08, 2023 4:42pm Maynor Le MD [address] [address] Diagnostic Imaging Signed Patient: Grazyna Dale : [...] By: Maynor Le MD Signed Date/Time:05/08/23 1645 National Park Ranger: [email or web address] Dictated Date: 05/08/231641 Transcribed Date/Time:05/08/231641 CC: Moise Reed DO; Tae Aldana MD ; Report Dictated Date/Time Dictated By Status Magnetic Resonance Imaging Report May 08, 2023 6:45pm Maynor Le MD completed [facility] [address] [facility], [address] Diagnostic Imaging Signed Patient: Grazyna Dale : [...] Signed By: Maynor Le MD Signed Date/Time:05/08/231908 National Park Ranger: LIYA Dictated Date: 05/08/231844 Transcribed Date/Time:05/08/231844 CC: Moise Reed DO; YAO Avitia ; Report Dictated Date/Time Dictated By Status Magnetic Resonance Imaging Report May 11, 2023 8:05am Luis Morel DO completed [place] [address] Diagnostic Imaging Signed Patient: Grazyna Dlae : 1940 Age: 83 Gender: F ADM [...] By: Luis Morel DO Signed Date/Time:05/11/23 0933 National Park Ranger: KEL Dictated Date: 05/11/23804 Transcribed Date/Time:05/11/23823 CC: Moise Reed DO; Tae Aldana MD ; Report Dictated Date/Time Dictated By Status Magnetic Resonance Imaging Report May 11, 2023 8:06am Luis Morel DO completed [address], [address] Diagnostic Imaging Signed Patient: Grazyna Dale : [...] Signed By: Luis Morel DO Signed Date/Time:05/11/23933 National Park Ranger: WHENRY Dictated Date: 05/11/23 0806 Transcribed Date/Time:05/11/23 0831 CC: Moise Reed DO; Tae Aldana MD ; Report Dictated Date/Time Dictated By Status Magnetic Resonance Imaging Report May 11, 2023 8:09am Luis Morel DO completed [address], [address] Diagnostic Imaging Signed Patient: Grazyna Dale : [...] Signed By: Luis Morel DO Signed Date/Time:05/11/2334 National Park Ranger: WHENRY Dictated Date: 05/11/2309 Transcribed Date/Time:05/11/23831 CC: [...] kg May 11, 2023 2:17pm Body Temperature 96.8 [degF] 97.6-99.6 May 12, 2023 7:00pm Heart Rate 70 /min 60-90 May 12, 2023 7:48pm Respiratory rate 16 /min -May 12, 2023 7:00pm Oxygen saturation by Pulse oximetry 97 % 95-100 May 12, 2023 7:00 pm BP Systolic 134 mm[Hg] May 12, 2023 7:48pm BP Diastolic 68 mm[Hg] May 12, 2023 7:48pm BMI (Body Mass Index) 30.7 kg/m2 April 172022 2:17pm Advance Directives Advance Directive Response Recorded Date/ Time Do you have Advance Directives? No August 10, 2020 9:44am Does The Patient Have A Living Will No May 10, 2023 9:04am Insurance Providers Guarantor Grazyna G Chito Address [address] [place] [address] Contact Info. Home Phone: Payer Policy Id Coverage Id Subscriber's Name Subscriber Id Effective Date Expiration Date Aettrixie Medicare [facility] [id number] Grazyna Dale [id number] Johan Hardin [facility] [id number] Grazyna Dael [id number] Self Pay Self N/A Encounters Encounter Location(s) Arrival/Admit Date Discharge/Depart Date Provider(s) Discharged Inpatient [facility] April 12, 2023 10:06pm April 16, 2023 1:40pm Oleg Bernabe DO Discharged Recurring [facility] April 28, 2023 9:25am April 28, 2023 11:59pm Moise Reed DO Admitted Inpatient [facility] May 10, 2023 8:38am Enrique Sousa MD Recent Diagnosis Onset Date Cellulitis of left foot Fever Weakness Atrial fibrillation CKD (chronic kidney disease) Chronic anticoagulation Diabetes Diabetic foot ulcer [id number] GERD (gastroesophageal reflux disease) Hyperlipidemia Hypertension Hypothyroidism May 22, 2015 Triple vessel coronary artery disease Bacteremia Cellulitis of left foot Fever Atrial fibrillation CHF (congestive heart failure) CKD (chronic kidney disease) Diabetic foot ulcer Hypertension Hypothyroidism May 22, 2015 Mental Status Observation Response Date Recorded Cognition Normal Cognition April 16, 2023 9:00am Cognition Normal Cognition May 12, 2023 9:00pm Assessments Diagnosis Onset Date Resolution Status Cellulitis of left foot acut e Fever acute Weakness acute Atrial fibrillation chronic CKD (chronic kidney disease) chronic Chronic anticoagulation [employer]ipp[employer] he Diabetes chronic Diabetic foot ulcer chronic [id number] chronic GERD (gastroesophageal reflux disease) chronic Hyperlipidemia [...] scheduled test information is unavailable Pending Tests Test Name Ordered Date Scheduled Date White Blood Count May 13, 2023 5:45am Red Blood Count May 13, 2023 5:45am Hemoglobin May 13, 2023 5:45am Hematocrit May 13, 2023 5:45am Mean Corpuscular Volume May 13, 2023 5:45am Mean Corpuscular Hemoglobin May 13, 2023 5:45 am Mean Corpuscular Hemoglobin Concent May 13 023 5:45am RDW Standard Deviation May 13, 2023 5:45am RDW Coefficient of Variation May 13, 2023 5:4 5am Platelet Count May 13, 2023 5:45am Neutrophils (%) (Auto) May 13, 2023 5:45am Lymphocytes (%) (Auto) May 13, 2023 5:45am Monocytes (%) (Auto) May 13, 2023 5:45am Eosinophils (%) (Auto) May 13, 2023 5:45am Basophils (%) (Auto) May 13, 2023 5:45am Neutrophils # (Auto) May 13, 2023 5:45am Lymphocytes # (Auto) May 13, 2023 5:45am Monocytes # (Auto) May 13, 2023 5:45am Eosinophils # (Auto) May 13, 2023 5:45am Basophils # (Auto) May 13, 2023 5:45am Sodium Level May 13, 2023 5:45am Potassium Level May 13, 2023 5:45am Chloride Level May 13, 2023 5:45am Carbon Dioxide Level May 13, 2023 5:45am Anion Gap May 13, 2023 5:45am Blood Urea Nitrogen May 13, 2023 5:45am Creatinine May 13, 2023 5:45am Estimated GFR (MDRD) May 13, 2023 5:45am BUN/Creatinine Ratio May 13, 2023 5:45am Glucose Level May 13, 2023 5:45am Calculated Osmolality May 13, 2023 5:45am Calcium Level May 13, 2023 5:45am Magnesium Level May 13, 2023 5:45am Aspartate Amino Transf (AST/SGOT) May 13 5:45am Alanine Aminotransferase (ALT/SGPT) May 13, 2 023 5:45am Alkaline Phosphatase May 13, 2023 5:45am Total Bilirubin May 13, 2023 5:45am Total Protein May 13, 2023 5:45am Albumin May 13, 2023 5:45am Globulin May 13, 2023 5:45am Albumin/Globulin Ratio May 13, 2023 5:45am Resuscitation Status May 08, 2023 6:01pm May 08, 2023 6:01pm Future Visits Future appointment information is unavailable Referrals to Other Providers Reason for Referral Referral Start Date Provider Provider Contact Information Provider Address Moise Reed Work Phone: [address] [facility] [address] Future Procedures Procedure Name Ordered Date Scheduled Date Admit to Hospital April 12, 2023 9:29pm March 9:29pm Diagnosis April 12, 2023 9:29pm April 12, 2023 9:29pm Discharge April 16, 2023 12:25pm April 16, 2023 12:25pm Inpatient Bed April 12, 2023 9:29pm April 12, 2023 9:29pm BIPAP/CPAP May 10, 2023 6:30pm April 6:30pm Comprehensive Metabolic Panel May 12, 2023 9: 25am May 13, 2023 5:45am Admit to Hospital May 08, 2023 6:01pm May 082022 6:01pm Hospitalist Consult for Admission May 08 4:49pm May 08, 2023 4:49pm Diagnosis May 08, 2023 6:01pm April 6:02pm Make Full Admit May 11, 2023 7:21am [...]
--- OUTSIDE RECORDS SUMMARY | 2023-10-17 00:53 | External Medical Summary ---
Author Name Unknown Address Unknown Organization L1E:[facility] [address] [place] [address] Laboratory Report Ordering Provider Test Date Status Merry Nunez 05/13/2023 06:43 Final Observation Date Value Abnormality Reference (Units ) Status Magnesium [Moles/volume] in Unspecified specimen 05/13/2023 07:07 2.0 Normal 1.8-2.4 (mg/d L) Final Performing Location [facility] [address] [place] [address]
--- OUTSIDE RECORDS SUMMARY | 2023-10-17 00:54 | External Medical Summary ---
Author Name Unknown Address Unknown Organization : Laboratory Report Ordering Provider Test Date Status Merry Nunez 05/11/2023 20:58 Final Observation Date Value Abnormality Reference (Units ) Status Glucose, capillary POC (i-STAT) 05/11/2023 21:21 141 Above high normal 70-99 (MG/DL) Final Followed protocol Performing Location
--- OUTSIDE RECORDS SUMMARY | 2023-10-17 00:54 | External Medical Summary ---
Author Name Unknown Address Unknown Organization L1E:[facility] [address] [place] [address] Laboratory Report Ordering Provider Test Date Status Merry Nunez 05/12/2023 06:00 Final Observation Date Value Abnormality Reference (Units ) Status Sodium 05/12/2023 06:52 138 Normal 136-145 (mmol/L) Final Potassium [Moles/volume] in Specimen 05/12/2023 06:52 3.9 Normal 3.5-5.1 (mmol/L) Final Cl 05/12/2023 06:52 110 Above high normal 98-107 (mmol/L) Final CO2 05/12/2023 06:52 27 Normal 21-32 (mmol/L) Final Anion gap 05/12/2023 06:52 1.0 Normal 1.0-15.0 (MMOL/L) Final BUN 05/12/2023 06:52 23 Above high normal 7-18 (mg/dL) Final Creatinine 05/12/2023 06:52 0.93 Normal 0.55-1.02 (mg/dL) Final Glomerular filtration rate/1.73 sq M.predicted [Volume Rate/Area] in Serum, Plasma or Blood 05/12/2023 06:52 58 Final UNITS= mL/min/1.73m squared< br/> Unable to flag low results
Results less than 60 may warrant further investigation

Patients race is not known. If the patient is
[place], multiply the calculated GFR result provided by
1.21. GFR Estimate should not be used to alter drug dosages. Urea nitrogen/Creatinine [Mass Ratio] in Serum or Plasma 05/12/2023 06:52 24.6 Above high normal 10.0-20.00 Final Glucose 05/12/2023 06:52 165 Above high normal 70-99 (mg/dL) Final Osmolality of Serum or Plasma by calculation 05/12/2023 06:52 283 Normal 275-295 Fi nal Calcium [Mass/volume] in Unspecified specimen 05/12/2023 06:52 9.2 Normal 8.5-10.1 (mg/dL) Final Aspartate Aminotrans(SGOT) 05/12/2023 06:52 49 Above high normal 15-37 (U/L) Final ALT (Alanine aminotransferase) 05/12/2023 06:52 51 Normal 13-56 (U/L) Final Alk Phos 05/12/2023 06:52 102 Normal 45-117 (U/L) Final Bilirubin,Total 05/12/2023 06:52 0.46 Normal 0.20-1. 00 (mg/dL) Final Total Protein 05/12/2023 06:52 6.8 Normal 6.40-8.20 (g/dL) Final Albumin 05/12/2023 06:52 2.9 Below low normal 3.4-5.0 (g/dL) Final Globulin [Mass/volume] in Serum 05/12/2023 06:52 3.9 Normal 1.3-4.9 (Ratio) Final Albumin/Globulin [Mass Ratio] in Serum or Plasma 05/12/2023 06:52 0.7 Below low normal 1.2-2.3 (Ratio) Final Performing Location [facility] [address] [place] [address]
--- OUTSIDE RECORDS SUMMARY | 2023-10-17 00:54 | External Medical Summary ---
Author Name Unknown Address Unknown Organization L1E:[facility] [address] [place] [address] Laboratory Report Ordering Provider Test Date Status Karly Castaneda 05/11/2023 17:50 Final Observation Date Value Abnormality Reference (Units ) Status Vancomycin, trough 05/11/2023 18:15 10.1 Normal 10.0 -20.0 (ug/mL) Final Performing Location [facility] [address] [place] [address]
--- OUTSIDE RECORDS SUMMARY | 2023-10-17 00:54 | External Medical Summary ---
Author Name Unknown Address Unknown Organization L1E:[facility] [address] [place] [address] Laboratory Report Ordering Provider Test Date Status Merry Nunez 05/12/2023 06:00 Final Observation Date Value Abnormality Reference (Units ) Status White Blood Count 05/12/2023 06:27 4.9 Normal 4.1-1 0.2 (10 3/uL) Final RBC 05/12/2023 06:27 4.18 Normal 3.80-5.20 (10 6/uL) Final Hemoglobin 05/12/2023 06:27 12.1 Normal 11.5-15.5 (g /dL) Final HCT 05/12/2023 06:27 36.0 Normal 35-46 (%) Fin al MCV 05/12/2023 06:27 86.1 Normal 82.0-98.0 (fL ) Final MCH 05/12/2023 06:27 28.9 Normal 27.0-34.0 (pg ) Final MCHC 05/12/2023 06:27 33.6 Normal 31.0-36.0 (g/ dL) Final Erythrocyte distribution width [Entitic volume] 05/12/2023 06:27 46.5 Normal 37-49 (fL) F inal RDW 05/12/2023 06:27 14.7 Normal 11.8-14.8 (%) Final Platelets 05/12/2023 06:27 200 Normal 150-360 (10 3 /uL) Final Mean Platelet Volume 05/12/2023 06:27 10.4 Normal 9. 4-12.3 (fL) Final Segs 05/12/2023 06:27 49.3 Normal 42-75 (%) Fin al Lymphs, absolute 05/12/2023 06:27 40.8 Normal 14-42 (%) Final Monos 05/12/2023 06:27 7.1 Normal 4-13 (%) Fin al Eosinophils 05/12/2023 06:27 2.0 Normal 0-6 (%) F inal Basos 05/12/2023 06:27 0.6 Normal 0-2 (%) Fin al Immature Granulocyte, Percent 05/12/2023 06:27 0.2 Normal 0.0-0.7 (%) Final NRBC% (Auto) 05/12/2023 06:27 0.0 Normal 0.0-0.2 (/ 100 WBC) Final Absolute Segs 05/12/2023 06:27 2.4 Normal 1.8-6.6 ( 10 3uL) Final Lymphocytes [#/volume] in Unspecified specimen by Automated count 05/12/2023 06:27 2.0 Normal 1.0-3.1 (10 3/uL) Final Monos, Abs 05/12/2023 06:27 0.4 Normal 0.0-1.0 (10 3uL) Final Eos, Abs 05/12/2023 06:27 0.1 Normal 0.0-0.5 (10 3 uL) Final Basos, Abs 05/12/2023 06:27 0.0 Normal 0.0-0.1 (10 3/uL) Final Granulocytes [#/volume] in Blood by Automated count 05/12/2023 06:27 0.0 Normal 0.0-0.0 (10 3/uL) Final NRBC # (Auto) 05/12/2023 06:27 0.000 Normal 0.000 -0.012 (10 3/uL) Final Performing Location [address] [address]
--- OUTSIDE RECORDS SUMMARY | 2023-10-17 00:54 | External Medical Summary | Continuity of Care Document ---
Author Name Unknown Address [address] [place] [address] Phone Organization [facility] Address [address] [facility] [place] [address] Phone Support Name Relationship Address Phone Kandi Swanson Daughter [address] [place] [address] Moise Reed Primary Care Provider [address] [place] [address] Imer King Emergency Provider [address] [place] [address] Oleg Bernabe Admit Provider [address] [place] [address] Tae Aldana Emergency Provider [address] [place] [address] Enrique Sousa Admit Provider [address] [place] [address] Chief Complaint and Reason for Visit Chief Complaint Cellulitis,foot Diabetic Education L foot cellulitis, diabetic ulcer Reason for Visit Cellulitis of left f oot Fever Weakness Atrial fibrillation CKD (chronic kidney disease) Chronic anticoagulation Diabetes Diabetic foot ulcer [id number] GERD (gastroesophageal reflux disease) Hyperlipidemia Hypertension Hypothyroidism [...] PO Every Night May 07, 2020 9:59am [facility] er 2019 3:49pm Glimepiride Disconti nued 4 MG PO Every Morning May 17, 2020 10:[facility]am [facility] 11:39a m administer with breakfast Lancets Disconti nued 0 .ROUTE .MEDSUPPLY 100 [facility] er 2019 12:00am May 23, 2021 7:48am As directed twice a day Dx E11.9 Blood Sugar Diagnostic (Onetouch Ultra Blue Test Strip) strip Disconti nued 0 .ROUTE .MEDSUPPLY 100 [facility] er 2019 12:00am May 23, 2021 7:48am As directed twice a day Dx E11.9 Metoprolol Tartrate (Lopressor) 25 mg tablet Disconti nued 25 MG PO Twice Daily 60 [facility] er 2019 11:58am January 22, 2021 9:46am Apixaban (Eliquis) 5 mg tablet Disconti nued 5 MG PO Twice Daily 60 [facility] er 2019 2:53pm ua 2020 4:43pm Insulin Degludec (Tresiba Flextouch U-100) 100 unit/mL (3 mL) insulin pen Disconti nued 25 UNIT SUBCUT daily September 13, 2020 9:44am [facility] 10:06a m continue increasing by 2 units every 3 days until blood sugars are in the 130 range Clopidogrel Bisulfate (Clopidogrel) 75 mg tablet Disconti nued 75 MG PO 3 times per week September 13, 2020 10:02am March 21, 2022 10:35a m Insulin Degludec (Tresiba Flextouch U-100) 100 unit/mL (3 mL) insulin pen Disconti nued 25 UNIT SUBCUT daily [facility] r 2019 10:06am [facility] er 2019 1:41pm 38 units daily [...] 2021 8:59am Lancets Disconti nued 0 .ROUTE .[facility] 100 May 23, 2021 7:48am Dece er 2020 10:44a m As directed twice a day Dx E11.9 Blood Sugar Diagnostic (Precision Q-I-D) strip Disconti nued 0 .ROUTE .[facility] 100 May 23, 2021 7:48am May 08, 2023 4:28pm As directed twice a day Dx E11.9 Insulin Degludec (Tresiba Flextouch U-200) 200 unit/mL (3 mL) insulin pen Disconti nued 38 UNIT SUBCUT Every Night June 07, 2021 10:04am [facility] 2020 7:22am Levothyroxine Sodium (Levothyroxin [...] Lancets Disconti nued 0 .ROUTE .MEDSUPPLY 100 [facility] r 2020 10:44am [facility] 2020 1:43pm As directed twice a day Dx E11.9 Gabapentin Disconti nued 800 MG PO .COMPLEX 180 [facility] r 2020 10:49am [facility] er 2020 1:43pm 800 mg PO take one tablet at lunchtime and one tablet at bedtime; Gabapentin Disconti nued 800 MG PO .COMPLEX 180 [facility] r 2020 1:43pm [facility] er 2020 9:46am 800 mg PO take one tablet at lunchtime and one tablet at bedtime; Lancets Disconti nued 0 .ROUTE .MEDSUPPLY 100 [facility] r 2020 1:43pm [facility] er 2021 11:27a m As directed twice a day Dx E11.9 Gabapentin Disconti nued 800 MG PO .COMPLEX 180 [facility] r 2020 9:45am March 21, 2022 [...] 29, 2018 12:00am March 22, 2018 2:37pm Mccormick-3/Dha/E pa/Fish Oil (Fish Oil Mccormick-3 Ec 1,200 Mg) [address] E[address] Chrissie [...] 2022 12:00am June 05, 2022 12:13p m Mccormick-3 Fatty Acids (Mccormick-3) 1,000 MG capsule Disconti nued 1000 MG [...] Disconti nued 50 MG PO Twice Daily [facility] 2021 1:00am May 08, 2023 4:29pm [...] UAL As Directed May 08, 2023 12:00am Krill/Mccormick-3 /Dha/Epa/Lipi ds (Mccormick-3 Krill Oil 500 Mg Sfgl) 1 EACH [...] Disconti nued 500 MG [facility]H [facility] 12:[facility]am [facility] r 2019 10:01a m Tramadol Hcl Disconti nued 50 MG PO Q8H [facility] 12:00am Oct[facility] r 2019 12:02a m Doxycycline Hyclate Disconti nued 100 MG PO Twice Daily June 04, 2021 4:01pm [facility] 2020 7:05am Azithromycin Disconti nued [...] nued MG PO September 06, 2020 12:00am [facility] er 2019 9:43am Insulin Degludec (Tresiba [...] ua ry 2020 10:07a m Hydrocodone/A cetaminophen ([facility] 5-325 Tablet) 5-325 mg tablet Disconti nued 1 TAB PO Twice Daily 60 30 r 2019 1:02am Docusate Sodium Disconti nued 100 MG PO Twice Daily November 19, 2020 1:00am February 28, 2021 11:13a m Hydrocodone/A cetaminophen ([facility] 5-325 Tablet) 5-325 mg tablet Disconti nued [...] r 2020 1:00am May 08, 2023 4:25pm Mccormick-3 Fatty Acids (Fish Oil Concentrate) 1,000 mg capsule Disconti nued 1000 MG PO Twice Daily 60 [facility] r 2020 1:00am May 03, 2022 11:24a m Immunizations Immunization Event Date Not Given Reason Dose Number 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 [facility] Lot Number Vaccine Information Statement (VIS) Detail SARS-COV-2 (COVID-19) MODERNA July 07, 2021 [id number] Fluzone QUAD August 16, 2017 Fluzone QUAD August 17, 2018 Influenza, high-dose, Quadrivalent October 18, 2020 [id number] Influenza, high-dose, Quadrivalent October 04, 2021 [id number] Pneumococcal 13-Valent Conjugate Vaccine September 08, 2018 [...] April 15, 2023 5:54am 5.1 10^3/uL 4.1-10.2 [facility] [id number] [address] [facility] [place] [address] White Blood Count May 12, 2023 6:00am 4.9 10^3/uL 4.1-10.2 [facility] [id number] [address] [facility] [place] [address] Red Blood Count April 15, 2023 5:54am 4.44 10^6/uL 3.80-5.20 [facility] [id number] [address] [facility] [place] [address] Red Blood Count May 12, 2023 6:00am 4.18 10^6/uL 3.80-5.20 [facility] [id number] [address] [facility] [place] [address] Hemoglobin April 15, 2023 5:54am 12.5 g/dL 11.5-15.5 [facility] [id number] [address] [facility] [place] [address] Hemoglobin May 12, 2023 6:00am 12.1 g/dL 11.5-15.5 [facility] [id number] [address] [facility] [place] [address] Hematocrit April 15, 2023 5:54am 38.6 % 35-46 [facility] [id number] [address] [facility] [place] [address] Hematocrit May 12, 2023 6:00am 36.0 % 35-46 [facility] [id number] [address] [place] [address] Mean Corpuscular Volume April 15, 2023 5:54am 86.9 fL 82.0-98.0 [facility] [id number] [address] [place] [address] Mean Corpuscular Volume May 12, 2023 6:00am 86.1 fL 82.0-98.0 [facility] [id number] [address] [place] [address] Mean Corpuscular Hemoglobin April 15, 2023 5:54am 28.2 pg 27.0-34.0 [facility] [id number] [address] [place] [address] Mean Corpuscular Hemoglobin May 12, 2023 6:00am 28.9 pg 27.0-34.0 [facility] [id number] [address] [place] [address] Mean Corpuscular Hemoglobin Concent April 15, 2023 5:54am 32.4 g/dL 31.0-36.0 [facility] [id number] [address] [place] [address] Mean Corpuscular Hemoglobin Concent May 12, 2023 6:00am 33.6 g/dL 31.0-36.0 [facility] [id number] [address] [place] [address] RDW Standard Deviation April 15, 2023 5:54am 46.8 fL 37-49 [facility] [id number] [address] [place] [address] RDW Standard Deviation May 12, 2023 6:00am 46.5 fL 37-49 [facility] [id number] [address] [place] [address] RDW Coefficient of Variation April 15, 2023 5:54am 14.7 % 11.8-14.8 [facility] [id number] [address] [place] [address] RDW Coefficient of Variation May 12, 2023 6:00am 14.7 % 11.8-14.8 [facility] [id number] [address] [facility] [place] [address] Platelet Count April 15, 2023 5:54am 191 10^3/uL 150-360 [facility] [id number] [address] [facility] [place] [address] Platelet Count May 12, 2023 6:00am 200 10^3/uL 150-360 [facility] [id number] [address] [facility] [place] [address] Mean Platelet Volume April 15, 2023 5:54am 10.4 fL 9.4-12.3 [facility] [id number] [address] [facility] [place] [address] Mean Platelet Volume May 12, 2023 6:00am 10.4 fL 9.4-12.3 [facility] [id number] [address] [facility] [place] [address] Neutrophils (%) (Auto) April 15, 2023 5:54am 49.5 % 42-75 [facility] [id number] [address] [facility] [place] [address] Neutrophils (%) (Auto) May 12, 2023 6:00am 49.3 % 42-75 [facility] [id number] [address] [facility] [place] [address] Lymphocytes (%) (Auto) April 15, 2023 5:54am 33.1 % 14-42 [facility] [id number] [address] [facility] [place] [address] Lymphocytes (%) (Auto) May 12, 2023 6:00am 40.8 % 14-42 [facility] [id number] [address] [facility] [place] [address] Monocytes (%) (Auto) April 15, 2023 5:54am 10.7 % 4-13 [facility] [id number] [address] [facility] [place] [address] Monocytes (%) (Auto) May 12, 2023 6:00am 7.1 % 4-13 [facility] [id number] [address] [facility] [place] [address] Eosinophils (%) (Auto) April 15, 2023 5:54am 5.5 % 0-6 [facility] [id number] [address] [place] [address] Eosinophils (%) (Auto) May 12, 2023 6:00am 2.0 % 0-6 [facility] [id number] [address] [place] [address] Basophils (%) (Auto) April 15, 2023 5:54am 1.0 % 0-2 [facility] [id number] [address] [place] [address] Basophils (%) (Auto) May 12, 2023 6:00am 0.6 % 0-2 [facility] [id number] [address] [place] [address] Immature Granulocytes % April 15, 2023 5:54am 0.2 % 0.0-0.7 [facility] [id number] [address] [place] [address] Immature Granulocytes % May 12, 2023 6:00am 0.2 % 0.0-0.7 [facility] [id number] [address] [place] [address] Neutrophils # (Auto) April 15, 2023 5:54am 2.5 10^3uL 1.8-6.6 [facility] [id number] [address] [facility] [place] [address] Neutrophils # (Auto) May 12, 2023 6:00am 2.4 10^3uL 1.8-6.6 [facility] [id number] [address] [facility] [place] [address] Lymphocytes # (Auto) April 15, 2023 5:54am 1.7 10^3/uL 1.0-3.1 [facility] [id number] [address] [facility] [place] [address] Lymphocytes # (Auto) May 12, 2023 6:00am 2.0 10^3/uL 1.0-3.1 [facility] [id number] [address] [place] [address] Monocytes # (Auto) April 15, 2023 5:54am 0.6 10^3uL 0.0-1.0 [facility] [id number] [address] [place] [address] Monocytes # (Auto) May 12, 2023 6:00am 0.4 10^3uL 0.0-1.0 [facility] [id number] [address] [place] [address] Eosinophils # (Auto) April 15, 2023 5:54am 0.3 10^3uL 0.0-0.5 [facility] [id number] [address] [place] [address] Eosinophils # (Auto) May 12, 2023 6:00am 0.1 10^3uL 0.0-0.5 [facility] [id number] [address] [place] [address] Basophils # (Auto) April 15, 2023 5:54am 0.1 10^3/uL 0.0-0.1 [facility] [id number] [address] [place] [address] Basophils # (Auto) May 12, 2023 6:00am 0.0 10^3/uL 0.0-0.1 [facility] [id number] [address] [place] [address] Erythrocyte Sedimentatio n Rate April 15, 2023 5:54am 33 mm/hr 0-30 [facility] [id number] [address] [place] [address] Erythrocyte Sedimentatio n Rate May 08, 2023 3:36pm 19 mm/hr 0-30 [facility] [id number] [address] [place] [address] Prothrombin Time May 08, 2023 4:04pm 18.4 SEC 9.8-12.7 [facility] [id number] [address] [place] [address] INR Internationa l Normalized Ratio May 08, 2023 4:04pm 1.64 [facility] [id number] [address] [place] [address] Activated Partial Thromboplast Time May 08, 2023 4:04pm 63.0 SEC 25-36 [facility] [id number] [address] [place] [address] Urine Color April 12, 2023 7:25pm Yellow Yellow [facility] [id number] [address] [place] [address] Urine Color May 08, 2023 4:44pm Yellow Yellow [facility] [id number] [address] [place] [address] Urine Clarity April 12, 2023 7:25pm Clear Clear [facility] [id number] [address] [place] [address] Urine Clarity May 08, 2023 4:44pm Clear Clear [facility] [id number] [address] [place] [address] Urine pH April 12, 2023 7:25pm 5.5 6.0-8.0 [facility] [id number] [address] [place] [address] Urine pH May 08, 2023 4:44pm 7.0 6.0-8.0 [facility] [id number] [address] [place] [address] Urine Specific [place] April 12, 2023 7:25pm 1.010 1.000-1.03 0 [facility] [id number] [address] [place] [address] Urine Specific [place] May 08, 2023 4:44pm 1.018 1.000-1.03 0 [facility] [id number] [address] [place] [address] Urine Protein April 12, 2023 7:25pm Negative Negative [facility] [id number] [address] [place] [address] Urine Protein May 08, 2023 4:44pm Trace Negative [facility] [id number] [address] [place] [address] Urine Glucose (UA) April 12, 2023 7:25pm Negative Negative [facility] [id number] [address] [place] [address] Urine Glucose (UA) May 08, 2023 4:44pm Negative Negative [facility] [id number] [address] [place] [address] Urine Ketones April 12, 2023 7:25pm Negative Negative [facility] [id number] [address] [place] [address] Urine Ketones May 08, 2023 4:44pm Negative Negative [facility] [id number] [address] [place] [address] Urine Occult Blood April 12, 2023 7:25pm Negative Negative [facility] [id number] [address] [place] [address] Urine Occult Blood May 08, 2023 4:44pm Negative Negative [facility] [id number] [address] [place] [address] Urine Nitrate April 12, 2023 7:25pm Negative Negative [facility] [id number] [address] [place] [address] Urine Nitrate May 08, 2023 4:44pm Negative Negative [facility] [id number] [address] [place] [address] Urine Bilirubin April 12, 2023 7:25pm Negative Negative [facility] [id number] [address] [place] [address] Urine Bilirubin May 08, 2023 4:44pm Negative Negative [facility] [id number] [address] [place] [address] Urine Urobilinogen April 12, 2023 7:25pm 0.2 0.2-1.0 [facility] [id number] [address] [place] [address] Urine Urobilinogen May 08, 2023 4:44pm 0.2 0.2-1.0 [facility] [id number] [address] [place] [address] Urine Leukocyte Esterase April 12, 2023 7:25pm Negative Negative [facility] [id number] [address] [place] [address] Urine Leukocyte Esterase May 08, 2023 4:44pm Negative Negative [facility] [id number] [address] [place] [address] Urine WBC May 08, 2023 4:44pm 0-2 /HPF 0-3 [facility] [id number] [address] [place] [address] Urine Culture Indicated April 12, 2023 7:25pm No Culture not indicated. [facility] [id number] [address] [place] [address] Urine Culture Indicated May 08, 2023 4:44pm No Culture not indicated. [facility] [id number] [address] [place] [address] Urine Bacteria May 08, 2023 4:44pm Few /HPF NONE SEEN [facility] [id number] [address] [place] [address] Sodium Level April 15, 2023 5:54am 138 mmol/L 136-145 [facility] [id number] [address] [place] [address] Sodium Level May 12, 2023 6:00am 138 mmol/L 136-145 [facility] [id number] [address] [place] [address] Potassium Level April 15, 2023 5:54am 4.0 mmol/L 3.5-5.1 [facility] [id number] [address] [place] [address] Potassium Level May 12, 2023 6:00am 3.9 mmol/L 3.5-5.1 [facility] [id number] [address] [place] [address] Chloride Level April 15, 2023 5:54am 108 mmol/L 98-107 [facility] [id number] [address] [place] [address] Chloride Level May 12, 2023 6:00am 110 mmol/L 98-107 [facility] [id number] [address] [facility] [place] [address] Carbon Dioxide Level April 15, 2023 5:54am 26 mmol/L [facility] [id number] [address] [facility] [place] [address] Carbon Dioxide Level May 12, 2023 6:00am 27 mmol/L [facility] [id number] [address] [facility] [place] [address] Anion Gap April 15, 2023 5:54am 4.0 MMOL/L 1.0-15.0 [facility] [id number] [address] [facility] [place] [address] Anion Gap May 12, 2023 6:00am 1.0 MMOL/L 1.0-15.0 [facility] [id number] [address] [facility] [place] [address] Blood Urea Nitrogen April 15, 2023 5:54am 24 mg/dL 06-02 [facility] [id number] [address] [facility] [place] [address] Blood Urea Nitrogen May 12, 2023 6:00am 23 mg/dL 06-02 [facility] [id number] [address] [facility] [place] [address] Creatinine April 15, 2023 5:54am 1.20 mg/dL 0.55-1.02 [facility] [id number] [address] [facility] [place] [address] Creatinine May 12, 2023 6:00am 0.93 mg/dL 0.55-1.02 [facility] [id number] [address] [facility] [place] [address] Estimated GFR (MDRD) April 15, 2023 5:54am 43 UNITS= mL/min/1.73m squared Unable to flag low results Results less than 60 may warrant further investigationPa tients race is not known. If the patient is , multiply the calculated GFR result provided by 1.21. GFR Estimate should not be used to alter drug dosages. [facility] [id number] [address] [facility] [place] [address] Estimated GFR (MDRD) May 12, 2023 6:00am 58 UNITS= mL/min/1.73m squared Unable to flag low results Results less than 60 may warrant further investigationPa tients race is not known. If the patient is , multiply the calculated GFR result provided by 1.21. GFR Estimate should not be used to alter drug dosages. [facility] [id number] [address] [facility] [place] [address] BUN/Creatini ne Ratio April 15, 2023 5:54am 20.1 10.0-20.00 [facility] [id number] [address] [facility] [place] [address] BUN/Creatini ne Ratio May 12, 2023 6:00am 24.6 10.0-20.00 [facility] [id number] [address] [facility] [place] [address] Glucose Level April 15, 2023 5:54am 171 mg/dL [facility] [id number] [address] [facility] [place] [address] Glucose Level May 12, 2023 6:00am 165 mg/dL 99 [facility] [id number] [address] [facility] [place] [address] Bedside Glucose April 16, 2023 11:21am 180 MG/DL Followed protocol Point of Care [address] [facility] [place] [address] Bedside Glucose May 12, 2023 7:42pm 146 MG/DL -99 Followed protocol Point of Care [address] [facility] [place] [address] Calculated Osmolality April 15, 2023 5:54am 285 275-295 [facility] [id number] [address] [facility] [place] [address] Calculated Osmolality May 12, 2023 6:00am 283 275-295 [facility] [id number] [address] [facility] [place] [address] Calcium Level April 15, 2023 5:54am 8.9 mg/dL 8.5-10.1 [facility] [id number] [address] [place] [address] Calcium Level May 12, 2023 6:00am 9.2 mg/dL 8.5-10.1 [facility] [id number] [address] [facility] [address] Troponin I High Sensitivity May 08, 2023 4:04pm 11.1 ng/L 0.00-49.9 | | FEMALE: | MALE: || Low Risk (Negative) | < 50 ng/L | < 80 ng/L | | Intermediate Risk | 50 - 110 ng/L | 80 - 110 ng/L | | High Risk (Critical)| >= 111 ng/L | >= 111 ng/L | | | [facility] [id number] [address] [facility] [address] Magnesium Level May 12, 2023 6:00am 1.6 mg/dL 1.8-2.4 [facility] [id number] [address] [place] [address] Aspartate Amino Transf (AST/SGOT) April 13, 2023 6:55am 52 U/L [facility] [id number] [address] [place] [address] Aspartate Amino Transf (AST/SGOT) May 12, 2023 6:00am 49 U/L [facility] [id number] [address] [place] [address] Alanine Aminotransfe rase (ALT/SGPT) April 13, 2023 6:55am 42 U/L 13-56 [facility] [id number] [address] [place] [address] Alanine Aminotransfe rase (ALT/SGPT) May 12, 2023 6:00am 51 U/L 13-56 [facility] [id number] [address] [place] [address] Alkaline Phosphatase April 13, 2023 6:55am 98 U/L 45-117 [facility] [id number] [address] [facility] [place] [address] Alkaline Phosphatase May 12, 2023 6:00am 102 U/L 45-117 [facility] [id number] [address] [facility] [place] [address] Total Bilirubin April 13, 2023 6:55am 1.07 mg/dL 0.20-1.00 [facility] [id number] [address] [facility] [place] [address] Total Bilirubin May 12, 2023 6:00am 0.46 mg/dL 0.20-1.00 [facility] [id number] [address] [facility] [place] [address] Total Protein April 13, 2023 6:55am 6.5 g/dL 6.40-8.20 [facility] [id number] [address] [facility] [place] [address] Total Protein May 12, 2023 6:00am 6.8 g/dL 6.40-8.20 [facility] [id number] [address] [place] [address] Albumin April 13, 2023 6:55am 2.9 g/dL 3.4-5.0 [facility] [id number] [address] [facility] [place] [address] Albumin May 12, 2023 6:00am 2.9 g/dL 3.4-5.0 [facility] [id number] [address] [facility] [place] [address] Globulin April 13, 2023 6:55am 3.6 Ratio 1.3-4.9 [facility] [id number] [address] [facility] [place] [address] Globulin May 12, 2023 6:00am 3.9 Ratio 1.3-4.9 [facility] [id number] [address] [facility] [place] [address] Albumin/Glob ulin Ratio April 13, 2023 6:55am 0.8 Ratio 1.2-2.3 [facility] [id number] [address] [facility] [place] [address] Albumin/Glob ulin Ratio May 12, 2023 6:00am 0.7 Ratio 1.2-2.3 [facility] [id number] [address] [facility] [place] [address] Lactic Acid Level April 12, 2023 6:25pm 1.9 mmol/L 0.40-2.00 [facility] [id number] [address] [facility] [place] [address] Lactic Acid Level May 08, 2023 8:35pm 1.5 mmol/L 0.40-2.00 [facility] [id number] [address] [facility] [place] [address] Lipase May 08, 2023 4:04pm 51 U/L 13-75 [facility] [id number] [address] [place] [address] Hemoglobin A1c April 13, 2023 6:55am 7.5 % 3.8-5.6 [facility] [id number] [address] [place] [address] Estimated Average Glucose April 13, 2023 6:55am 169 mg/dL 70-126 The estimated average glucose (eAG) is an approximation of the average glucose concentration in mg/dL over the last 90 days.The 2010 "Standards of Medical Care in Diabetes" of the [employer] [place] [employer] Association includes the following interpretations of Hemoglobin A1c results: >=6.5% Diagnostic of Diabetes 5.7-6.4% IFG/IGT ("Pre-Diabetes" ) [facility] [id number] [address] [facility] [place] [address] B-Type Natriuretic Peptide May 08, 2023 4:04pm 234 PG/ML 0-100 [facility] [id number] [address] [place] [address] Thyroid Stimulating Hormone (TSH) April 13, 2023 6:55am 1.260 uIU/mL 0.358-3.74 [facility] [id number] [address] [place] [address] C-Reactive Protein April 15, 2023 5:54am 3.22 mg/dL 0.00-0.30 [facility] [id number] [address] [place] [address] C-Reactive Protein May 08, 2023 4:04pm 6.53 mg/dL 0.00-0.30 [facility] [id number] [address] [place] [address] Vancomycin Level Peak May 11, 2023 9:03pm 32.5 ug/mL 20.0-40.0 [facility] [id number] [address] [place] [address] Vancomycin Level Trough May 11, 2023 5:50pm 10.1 ug/mL 10.0-20.0 [facility] [id number] [address] [place] [address] [place] [address] Procalcitoni n May 08, 2023 4:04pm 0.69 [...] risk of severe sepsis and/or septic shock. [facility] [id number] [address] [place] [address] Influenza Type A (Rapid) April 12, 2023 6:20pm Negative Negative [facility] [id number] [address] [place] [address] Influenza Type B (Rapid) April 12, 2023 6:20pm Negative Negative [facility] [id number] [address] [place] [address] MRSA Surveillance Screen May 10, 2023 10:26am Negative NEGATIVE [facility] [id number] [address] [place] [address] SARS-CoV-2 (PCR) April 12, 2023 6:51pm Negative Negative Negative results do not preclude [id number]-[id number] tion and should not be used as [...] and not for any viruses or pathogens. [facility] [id number] [address] [place] [address] SARS-CoV-2 (PCR) May 08, 2023 4:23pm Negative Negative Negative results do not preclude IMHH-[id number]-[id number] tion and should not be used as [...] and not for any viruses or pathogens. [facility] [id number] [address] [place] [address] Soft Tissue MRSA (PCR) April 13, 2023 11:03am Negative NEGATIVE [facility] [id number] [address] [place] [address] Soft Tissue MRSA (PCR) May 08, 2023 5:57pm Negative NEGATIVE [facility] [id number] [address] [place] [address] Soft Tissue S. aureus (PCR) April 13, 2023 11:03am Negative NEGATIVE XPert MRSA/SA Soft Skin & Tissue Assay is included as part of Wound Culture.Further ID and Sensitivities to follow. [facility] [id number] [address] [place] [address] Soft Tissue S. aureus (PCR) May 08, 2023 5:57pm Negative NEGATIVE XPert MRSA/SA Soft Skin & Tissue Assay is included as part of Wound Culture.Further ID and Sensitivities to follow. [facility] [id number] [address] [place] [address] SARS-CoV-2 Antigen (Rapid) April 12, 2023 6:20pm [...] an EUA for use by authorized laboratories. [facility] [id number] [address] [place] [address] SARS-CoV-2 Antigen (Rapid) May 08, 2023 4:04pm [...] an EUA for use by authorized laboratories. [facility] [id number] [address] [place] [address] Microbiology Results Procedure Source Result Collection Date/Time Result Date/Time Result Comment Performing Site Blood Culture Blood No Growth after 5 days April 16, 2023 12:44am April 21, 2023 12:50am [facility] [id number] [address] [facility] [place] [address] Blood Culture Blood Enterococcus faecalis May 08, 2023 4:04pm May 11, 2023 9:33am [facility] [id number] [address] [facility] [place] [address] Gram Stain Drainage, Left Foot April 13, 2023 11:03am April 14, 2023 11:26am [facility] [id number] [address] [facility] [place] [address] Wound Culture Drainage, Left Foot Strep agalactiae - (Group B) April 13, 2023 11:03am April 15, 2023 10:43am [facility] [id number] [address] [facility] [place] [address] Gram Stain Foot, Left May 08, 2023 5:57pm May 09, 2023 11:58am [facility] [id number] [address] [facility] [place] [address] Wound Culture Foot, Left Enterococ faecalis - (Group D) May 08, 2023 5:57pm May 10, 2023 8:00am [facility] [id number] [address] [place] [address] Diagnostic Imaging Reports Report Dictated Date/Time Dictated By Status Magnetic Resonance Imaging Report April 12, 2023 8:56p salima Rodriguez MD completed [address], [address] Diagnostic Imaging Signed Patient: Grazyna Dale : [...] Signed By: Nay Rodriguez MD Signed Date/Time:04/12/232102 Embossing Machine Operator: LIYA Dictated Date: 04/12/232055 Transcribed Date/Time:04/12/232055 CC: Moise Reed DO; Imer King DO ; Report Dictated Date/Time Dictated By Status Magnetic Resonance Imaging Report April 14, 2023 7:30a m Nay Rodriguez MD completed [address], [address] Diagnostic Imaging Signed Patient: Grazyna Dale : [...] Signed By: Nay Rodriguez MD Signed Date/Time:04/14/23730 Embossing Machine Operator: LIYA Dictated Date: 04/14/23729 Transcribed Date/Time:04/14/23729 CC: Moise Reed DO; Imer King DO ; Report Dictated Date/Time Dictated By Status Echocardiogram April 14, 2023 7:05am Pedro Paez DO completed [address], [address] ECHOCARDIOGRAM REPORT Signed Patient: Grazyna Dale : 1940 Female DOS: 04/14/23 0705 Primary Care Physician: Moise Reed DO Ordering Physician: Gabriela Tellez PA-C Referring Physician: Location: [place] [address] Echocardiogram Report Name: Grazyna Dale Ordering Physician: Gabriela Pang Patient Location: ^[facility]A Gender: Female : 1940 Race: [place] Age: [...] By: Pedro Paez DO Signed Date/Time:04/14/23 1237 Embossing Machine Operator: ALEXANDER Dictated Date: 04/14/23 0705 Transcribed Date/Time:04/14/23 1237 CC: Gabriela Tellez PA-C; Moise Reed DO ; Report Dictated Date/Time Dictated By Status Magnetic Resonance Imaging Report April 16, 2023 11:38 am Luis Strong [address], [address] Diagnostic Imaging Signed Patient: Grazyna Dale : [...] Signed By: Luis Strong Signed Date/Time:04/16/23 1144 Embossing Machine Operator: [email or web address] Dictated Date: 04/16/23 1138 Transcribed Date/Time:04/16/23 1138 CC: Moise Reed DO; Tonya Brandt PA-C ; Report Dictated Date/Time Dictated By Status Magnetic Resonance Imaging Report May 08, 2023 4:42pm Maynor Le MD [address] [address] Diagnostic Imaging Signed Patient: Grazyna Dale : [...] By: Maynor Le MD Signed Date/Time:05/08/23 1645 Embossing Machine Operator: [email or web address] Dictated Date: 05/08/231641 Transcribed Date/Time:05/08/231641 CC: Moise Reed DO; Tae Aldana MD ; Report Dictated Date/Time Dictated By Status Magnetic Resonance Imaging Report May 08, 2023 6:45pm Maynor Le MD completed [facility] [address] [facility], [address] Diagnostic Imaging Signed Patient: Grazyna Dale : [...] Signed By: Maynor Le MD Signed Date/Time:05/08/231908 Embossing Machine Operator: LIYA Dictated Date: 05/08/231844 Transcribed Date/Time:05/08/231844 CC: Moise Reed DO; YAO Avitia ; Report Dictated Date/Time Dictated By Status Magnetic Resonance Imaging Report May 11, 2023 8:05am Luis Morel DO completed [place] [address] Diagnostic Imaging Signed Patient: Grazyna Dale : [...] the prior study. Piedad Somers Dictated By:Luis Morle DO Electronically Signed By: Luis Morel DO Signed Date/Time:05/11/23 0933 Embossing Machine Operator: KEL Dictated Date: 05/11/23804 Transcribed Date/Time:05/11/23823 CC: Moise Reed DO; Tae Aldana MD ; Report Dictated Date/Time Dictated By Status Magnetic Resonance Imaging Report May 11, 2023 8:06am Luis Morel DO completed [address], [address] Diagnostic Imaging Signed Patient: Grazyna Dale : [...] Signed By: Luis Morel DO Signed Date/Time:05/11/23933 Embossing Machine Operator: WHENRY Dictated Date: 05/11/23 0806 Transcribed Date/Time:05/11/23 0831 CC: Moise Reed DO; Tae Aldana MD ; Report Dictated Date/Time Dictated By Status Magnetic Resonance Imaging Report May 11, 2023 8:09am Luis Morel DO completed [address], [address] Diagnostic Imaging Signed Patient: Grazyna Dale : 1940 Age: 83 Gender: F ADM Date: 05/10/23 DOS: 05/08/23 Primary Care Physician: Moise Reed DO Ordering Physician: Tea Aldana MD Location: [facility] Right knee [...] Signed By: Luis Morel DO Signed Date/Time:05/11/2334 Embossing Machine Operator: WHENRY Dictated Date: 05/11/2309 Transcribed Date/Time:05/11/23831 CC: [...] Insurance Providers Guarantor Grazyna G Chito Address [address] [place] [address] Contact Info. Home Phone: Payer Policy Id Coverage Id Subscriber's Name Subscriber Id Effective Date Expiration Date Aettrixie Medicare [facility] [id number] Grazyna Dale [id number] Johan Hardin [facility] [id number] Grazyna Dale [id number] Self Pay Self N/A Encounters Encounter Location(s) Arrival/Admit Date Discharge/Depart Date Provider(s) Discharged Inpatient [facility] April 12, 2023 10:06pm April 16, 2023 1:40pm Oleg Bernabe DO Discharged Recurring [facility]-Diabetic Education April 28, 2023 9:25am April 28, 2023 11:59pm Moise Reed DO Admitted Inpatient [facility] May 10, 2023 8:38am Enrique Sousa MD Recent Diagnosis Onset Date Cellulitis of left foot Fever Weakness Atrial fibrillation CKD (chronic kidney disease) Chronic anticoagulation Diabetes Diabetic foot ulcer [id number] GERD (gastroesophageal reflux disease) Hyperlipidemia Hypertension Hypothyroidism [...] CKD (chronic kidney disease) chronic 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 [address] Future Procedures Procedure Name Ordered Date Scheduled [...]
--- OUTSIDE RECORDS SUMMARY | 2023-10-17 00:54 | External Medical Summary ---
Author Name Unknown Address Unknown Organization L1E:[facility] [address] [place] [address] Laboratory Report Ordering Provider Test Date Status Karly Castaneda 05/11/2023 21:03 Final Observation Date Value Abnormality Reference (Units ) Status Vancomycin, peak 05/11/2023 21:34 32.5 Normal 20.0-4 0.0 (ug/mL) Final Performing Location [facility] [address] [place] [address]
--- OUTSIDE RECORDS SUMMARY | 2023-10-17 00:54 | External Medical Summary ---
Author Name Unknown Address Unknown Organization : Laboratory Report Ordering Provider Test Date Status Merry Nunez 05/12/2023 19:42 Final Observation Date Value Abnormality Reference (Units ) Status Glucose, capillary POC (i-STAT) 05/12/2023 19:46 146 Above high normal 70-99 (MG/DL) Final Followed protocol Performing Location
--- OUTSIDE RECORDS SUMMARY | 2023-10-17 00:54 | External Medical Summary ---
Author Name Unknown Address Unknown Organization : Laboratory Report Ordering Provider Test Date Status Arnoldo Nunezree 05/12/2023 16:29 Final Observation Date Value Abnormality Reference (Units ) Status Glucose, capillary POC (i-STAT) 05/12/2023 16:33 128 Above high normal 70-99 (MG/DL) Final Performing Location
--- OUTSIDE RECORDS SUMMARY | 2023-10-17 00:54 | External Medical Summary ---
Author Name Unknown Address Unknown Organization : Laboratory Report Ordering Provider Test Date Status Merry Nunez 05/12/2023 11:14 Final Observation Date Value Abnormality Reference (Units ) Status Glucose, capillary POC (i-STAT) 05/12/2023 11:28 182 Above high normal 70-99 (MG/DL) Final Followed protocol Performing Location
--- OUTSIDE RECORDS SUMMARY | 2023-10-17 00:54 | External Medical Summary ---
Author Name Unknown Address Unknown Organization L1E:[facility] [address] [place] [address] Laboratory Report Ordering Provider Test Date Status Merry Nunez 05/12/2023 06:00 Final Observation Date Value Abnormality Reference (Units ) Status Magnesium [Moles/volume] in Unspecified specimen 05/12/2023 06:52 1.6 Below low normal 1.8-2.4 (mg/dL) Final Performing Location [facility] [address] [place] [address]
--- OUTSIDE RECORDS SUMMARY | 2023-10-17 00:55 | External Medical Summary | Continuity of Care Document ---
Author Name CHRIS CARRILLO DO Address [address] [place] [address] Phone [phone] Organization [facility] Address [address] [place] [address] Phone [phone] Care Team Providers Care Mucker Cofferdam Name Role Phone Moise Reed DO Care Team Information Air Quality Chemist [phone] ISABELA HARVEY DO Care Team Information Rec eiver [phone] Moise Reed DO Primary Care Physician Problems [...] SIG Qnty Indications Order ing Provider Date [id number]/ML Suspension swish orally twice a day for 7 days 60ml B37.0 YAO Cervantes 04/24/2023 Ozempic (0.25 Or 0.5 MG/Dose)2mg/3ML Solution Pen-Inject 0.5 mg subcut every week 3ml Moise Reed, DO 04/06/2023 Synvisc Sud04ee/6ML Soln Prefill Syringe one syringe injected intra-articular in to right knee. dx m17.11 6ml Isabela Harvey, DO 03/13/2023 Tsipbdzcnn247kf Tablets 1 by mouth three times a day 90tabs Moise Reed, DO 12/15/2022 Svtqobzst0ws Tablets 1 tab by mouth every day 30tabs Moise Reed, DO 12/04/2022 Onetouch Delica Lancets Extra Fine 33GMisc use twice a day; dx: e11.9 200units Moise Reed, DO 10/20/2022 Meclizine FJP48vn Tablets 1 tab by mouth three times a day as needed 60tabs R42 Moise Reed, DO 04/02/2022 Tresiba Ghudhifsv989Qtli/ML Solution Pen-Inject inject 24 units am and 32 units pm 9ml Moise Reed, DO 04/02/2022 Onetouch UltraStrips test twice daily dx e11.9 100units Moise Reed, DO 03/18/2022 Levothyroxine Gefmgj86drq Tablets 1 tab by mouth every day 90tabs Moise Reed, DO 12/23/[address] 1 cap by mouth every day 90tabs Moise Reed, DO 06/21/2021 Mhsgzvwelk919ry Capsules 2 cap by mouth four times a day Unknown Calcium 600 1 tab by mouth every day Unknown Metoprolol Aqdmnpks31rk Tablets 1 tab by mouth twice a day 180tabs Kyle Cervantes MD [place]-3 Krill Dgc297pa Capsules 2 caps by mouth every day Unknown Vitamin J922orp (1000 Ut) Capsules 1 cap by mouth every day 90caps Unknown Multivitamin 1 tab by mouth every day Unknown Vitamin B-231066bow Tablets Sub 1 tab by mouth every day Unknown Probiotic 1 cap by mouth every day Unknown Nitroglycerin0.4mg Tablets Sub 1 tablet at first sign of attack; may repeat every 5 min up to 3 tabs, if no relief seek medical help. 25tabs Unknown Potassium Qnfupdtbp611(99K) mg Tablets 1 tab by mouth every day Unknown Atorvastatin Xyccycv00xk Tablets 1 tab by mouth every night 90tabs Kyle Cervantes MD Aqbdkko3py Tablets 1 tab by mouth twice a day 180tabs Kyle Cervantes MD Clopidogrel Dzdaxedrb50dx Tablets 1 tab by mouth every day 30tabs Moise Reed DO History Medications Xyrqeklk193361Nlcx Tablets 1 take 1 tab three time a day X B37.0 YAO Cervantes 04/24/2023 - 04/24/2023 Jdfreibznizb973gm Tablets 2 tablets once by mouth for one day, then 1 tablet once by mouth for 4 days 6tabs B34.9 Moise Reed DO 12/19/2022 - 02/04/2023 Medications Administered in Office Medication SIG Qnty Indications Ordering Provider Date Injection Betamethasone Acetate & Sodium Phosphate 3 MG Of EachInjection Satish Oviedo 03/11/2023 Immunizations CPT Code Status Date Vaccine Lot # [id number] Given 10/04/2021 Influenza Virus Vaccine H igh Dose Quadrivalent 04138 Given 07/07/2021 Moderna (Covid- 19) vaccine, mRNA, LNP-S, PF, 100 mcg/ 0.5 mL 99932 Given 10/18/2020 Influenza Virus Vaccine H igh Dose Quadrivalent 61203 Given 09/08/2018 Prevnar 13 Pneu mococcal Conjugate Vac 13 Valent For Im Use 09258 Given 08/17/2018 Influenza Virus Vaccine, Split Virus, Preservative Free Im 0.5ML 00985 Given 08/16/2017 Influenza Virus Vaccine, Split Virus, Preservative Free Im 0.5ML 34610 Given 10/03/2013 Pneumo 23 Pneumococcal Va ccine 2Yrs Or Older Vital Signs Date Vital Result Comment 05/08/2023 2:56pm Height 64 inches 5'4" BP Systolic 124 mmHg BP Diastolic 60 mmHg Body Temperature 98.6 F Heart Rate 95 /min Respiratory Rate 18 /min O2 % BldC Oximetry 94 % 04/24/2023 11:31am Height 64 inches 5'4" Weight 193.38 lb Weight 87.715 kg BMI (Body Mass Index) 33.2 kg/m2 BP Systolic 138 mmHg BP Diastolic 70 mmHg Body Temperature 97.0 F Heart Rate 80 /min Respiratory Rate 20 /min O2 % BldC Oximetry 93 % Results Test Acquired Date Facility Test Result H/L Range N ote Laboratory test finding 05/11/2023 [facility] [address] [facility] [address] Glucose-Acc ucheck 146 mg/dL High 70-99 1 Laboratory test finding 05/11/2023 [facility] [address] [facility], [place] [id number] [phone] Glucose-Acc ucheck 195 mg/dL High 70-99 2 Laboratory test finding 05/10/2023 [facility] [address] [facility] [place] [address] Glucose-Acc ucheck 183 mg/dL High 70-99 3 Laboratory test finding 05/10/2023 [facility] [address] [facility] [place] [address] Glucose-Acc ucheck 165 mg/dL High 70-99 4 Laboratory test finding 05/10/2023 [facility] [address] [facility] [place] [address] [phone] MRSA Screen (Molecular) NEGATIVE Negative Laboratory test finding 05/10/2023 [facility] [address] [facility] [place] , [place] [id number] Glucose-Acc ucheck 88 mg/dL Normal 70-99 CBC W/ Auto Diff 05/10/2023 [facility] [address] White Blood Count 5.2 10^3/uL Normal 4.1-10.2 [...] 10^3/uL Normal 0.000-0.012 Basic Metabolic Panel 05/10/2023 [facility] [address] [facility] [address] [phone] Sodium 141 mmol/L Normal 136-145 Potassium 3.8 mmol/L Normal 3.5-5.1 Chloride 112 mmol/L High 98-107 Carbon Dioxide 26 mmol/L Normal 21-32 [facility] Anion Gap 3.0 mmol/L Normal 1.0-15.0 Blood Urea Nitrogen 14 mg/dL Normal 7-18 Creatinine,Serum 0.95 mg/dL Normal 0.55-1.02 GFR 56 5 BUN/Creatinine Ratio 14.7 Normal 10.0-20.00 Glucose 86 mg/dL Normal 70-99 Osmolality,Calculated 281 Normal 275-295 Calcium 9.0 mg/dL Normal 8.5-10.1 Laboratory test finding 05/10/2023 [facility] [address] [place] [address] [phone] Glucose-Accucheck 176 mg/dL High 70-99 6 CBC W/ Auto Diff 05/09/2023 [facility] [address] [place] [address] [phone] White Blood Count 6.6 10^3/uL Normal 4.1-10. [...] 0.000 10^3/uL Normal 0.000-0.012 Laboratory test finding 05/09/[address] [address] [phone] Glucose-Accucheck 145 mg/dL High 70-99 7 Laboratory test finding 05/09/[address] [address] [phone] Magnesium 2.0 mg/dL Normal 1.8-2.4 Basic Metabolic Panel 05/09/[address] [address] [phone] Sodium 137 mmol/L Normal 136-145 Potassium 3.6 mmol/L Normal 3.5-5.1 Chloride 108 mmol/L High 98-107 Carbon Dioxide 24 mmol/L Normal 21-32 [facility] Anion Gap 5.0 mmol/L Normal 1.0-15.0 Blood Urea Nitrogen 18 mg/dL Normal 7-18 Creatinine,Serum 1.07 mg/dL High 0.55-1.02 GFR 49 8 BUN/Creatinine Ratio 16.8 Normal 10.0-20.00 Glucose 118 mg/dL High 70-99 Osmolality,Calculated 277 Normal 275-295 Calcium 8.4 mg/dL Low 8.5-10.1 Laboratory test finding 05/09/[address] [address] [phone] Glucose-Accucheck 114 mg/dL High 70-99 9 Laboratory test finding 05/09/[address] [address] [phone] Glucose-Accucheck 210 mg/dL High 70-99 10 Laboratory test finding 05/09/2023 [facility] [address] [place] [address] [phone] Glucose-Accucheck 105 mg/dL High 70-99 11 Laboratory test finding 05/09/2023 [facility] [address] [place] [address] [phone] Glucose-Accucheck 228 mg/dL High 70-99 12 Laboratory test finding 05/08/2023 [facility] [address] [place], [place] [address]752 [phone] Glucose-Accucheck 275 mg/dL High 70-99 Xpert MRSA/SA Soft Skin & Tiss 05/08/[address] [phone] MRSA, Soft Skin/Tissue NEGATIVE Negative Staph Aureus, Soft Skin/Tissue NEGATIVE Negat esthela 13 Laboratory test finding 05/08/[address] [address] [phone] Gram Stain GSGPC^Gram Posit <SEE NOTE> 14 Wound Culture 05/08/[address] [id number] [phone] O:Entcspe Enterococcus spe <SEE NOTE> 15 Wound Culture Quantity: 16 O:Strfae Enterococ faecal <SEE NOTE> 17 Gram Positive 05/08/[address] [address] [phone] Ampicillin ^2 Susceptible Gentamicin 500 ^<=500 Susceptible Linezolid ^<=1 Susceptible Penicillin ^4 Susceptible Vancomycin ^2 Susceptible Laboratory test finding 04/15/[address] [address] [phone] C-Reactive Protein 3.22 mg/dL High 0.00-0.30 18 Basic Metabolic Panel 04/15/[address] [id number] [phone] Sodium 138 mmol/L Normal 136-145 Potassium 4.0 mmol/L Normal 3.5-5.1 Chloride 108 mmol/L High 98-107 Carbon Dioxide 26 mmol/L Normal 21-32 [facility] Anion Gap 4.0 mmol/L Normal 1.0-15.0 Blood Urea Nitrogen 24 mg/dL High 7-18 Creatinine,Serum 1.20 mg/dL High 0.55-1.02 GFR 43 19 BUN/Creatinine Ratio 20.1 High 10.0-20.00 Glucose 171 mg/dL High 70-99 Osmolality,Calculated 285 Normal 275-295 Calcium 8.9 mg/dL Normal 8.5-10.1 Laboratory test finding 04/15/2023 [facility] [address] [place] [address] [phone] Sedimentation Rate, Automated 33 mm/hr High 0-30 CBC W/ Auto Diff 04/15/2023 [facility] [address] [place] [address] [phone] White Blood Count 5.1 10^3/uL Normal 4.1-10. [...] NRBC # (Auto) 0.000 10^3/uL Normal 0.000-0.012 CBC W/O Diff 04/14/[address] [address] [phone] White Blood Count 5.9 10^3/uL Normal 4.1-10.2 [...] 10^3/uL Normal 150-360 Basic Metabolic Panel 04/14/[address] [address] [phone] Sodium 137 mmol/L Normal 136-145 Potassium 4.1 mmol/L Normal 3.5-5.1 Chloride 106 mmol/L Normal 98-107 Carbon Dioxide 26 mmol/L Normal 21-32 [facility] Anion Gap 5.0 mmol/L Normal 1.0-15.0 Blood Urea Nitrogen 19 mg/dL High 7-18 Creatinine,Serum 1.22 mg/dL High 0.55-1.02 GFR 42 20 BUN/Creatinine Ratio 15.6 Normal 10.0-20.00 Glucose 138 mg/dL High 70-99 Osmolality,Calculated 279 Normal 275-295 Calcium 8.6 mg/dL Normal 8.5-10.1 Xpert MRSA/SA Soft Skin & Tiss 04/13/[address] [address] [phone] MRSA, Soft Skin/Tissue NEGATIVE Negative 21 Staph Aureus, Soft Skin/Tissue NEGATIVE Negat esthela 22 Wound Culture 04/13/[address] [phone] O:Straga Strep agalactiae <SEE NOTE> 23 Wound Culture Quantity: 24 Laboratory test finding 04/13/[address] [id number] [phone] Gram Stain GSEPI^Epithelial <SEE NOTE> 25 CBC W/ Auto Diff 04/13/2023 [facility] [address] [place] [address] [phone] White Blood Count 7.0 10^3/uL Normal 4.1 [...] 0.000 10^3/uL Normal 0.000-0.012 Glyco Panel 04/13/[address] [address] [phone] Hemoglobin A1c 7.5 % High 3.8-5.6 Estimated Average Glucose 169 mg/dL High 70-126 26 Comprehensive Metabolic Panel 04/13/[address] [address] [phone] Sodium 134 mmol/L Low 136-145 Potassium 3.9 mmol/L Normal 3.5-5.1 Chloride 104 mmol/L Normal 98-107 Carbon Dioxide 24 mmol/L Normal 21-32 [facility] Anion Gap 6.0 mmol/L Normal 1.0-15.0 Blood Urea Nitrogen 19 mg/dL High 7-18 Creatinine,Serum 1.15 mg/dL High 0.55-1.02 GFR 45 27 BUN/Creatinine Ratio 16.6 Normal 10.0-20.00 Glucose 133 [...] Ratio Low 1.2-2.3 Laboratory test finding 04/13/[address] [address] [phone] Thyroid Stimulating Hormone 1.260 uIU/mL Normal 0.358-3.74 Laboratory test finding 04/12/2023 [facility] [address] [place] [address] [phone] Sedimentation Rate, Automated 33 mm/hr High 0-30 C-Reactive Protein 4.85 mg/dL High 0.00-0.30 28 CBC W/ Auto Diff 01/28/2023 [facility] WBC 5.6 10e9/L Normal 4.8-11.0 Red Blood [...] 50.0-70.0 Lymph % 35.2 % Normal 20.0-40.0 [place] % 6.9 % Normal 2.0-10.0 Eos % 2.7 % Normal 0.5-5.0 Baso % 1.4 % Normal 0.0-3.0 Ig % 0.2 % High 0.0-0.0 NRBC % 0.0 % Normal 0.0-0.0 Gran # 3.0 10e9/L Normal 1.8-7.5 Lymph # 2.0 10e9/L Normal 1.5-3.5 [place] # 0.4 10e9/L Normal 0.0-0.7 Eos # 0.2 10e9/L Normal 0.0-0.7 Baso # 0.1 10e9/L Normal 0.0-0.2 Ig # 0.0 10e9/L Normal 0.0-1.0 NRBC # 0.0 10e9/L Normal 0.0-0.0 Comprehensive Metabolic Panel 01/28/2023 [facility] Glu 134 mg/dL High 65-110 BUN 20 mg/dL Normal 5-23 Crea 1.0 mg/dL Normal 0.4-1.5 29 GFR 53 mL/min Normal 30 Na 139 mmol/L Normal 135-145 K 4.5 mmol/L Normal 3.6-5.0 CL 106 mmol/L Normal 98-108 Co2 30 mmol/L Normal 23-32 CA 9.0 mg/dL Normal 8.7-10.5 TP 7.0 g/dL Normal 6.4-8.3 Alb 3.6 g/dL Normal 3.4-5.0 Bilt 0.6 mg/dL Normal 0.0-1.5 Sgot 31 U/L Normal 15-37 SGPT 30 U/L Normal 12-78 Alk 121 U/L High 45-117 Agap 7.5 mmol/L Low 8-15 Lipid Panel 01/28/2023 [facility] Chol 135 mg/dL Normal 20-200 Trig 183 mg/dL Normal 20-200 LDL 45 mg/dL Normal 0-130 HDL 53 mg/dL Normal 35-60 31 Risk Ratio 2.55 Low 3.27-4.44 32 Glyco Panel 01/28/2023 [facility] Hgba1c 7.2 %HbA1c High 3.8-5.6 33 A1c Glucose Est 160 mg/dL Normal Laboratory test finding 12/19/[address] [address] [phone] Sars-CoV-2 Rna, Qual PCR see below 34 Laboratory test finding 12/19/[address] [address] [phone] Covid 19 Antigen W/ Reflex Presumptive Nega <SEE NOTE> Negative 35 Influenza A & B Quick 12/19/[address] [address] [phone] Influenza A Negative Negative Influenza B Negative Negative 1 Followed protocol 2 Followed protocol 3 Followed protocol 4 Followed protocol 5 UNITS= mL/min/1.73m squared Unable to flag low results Results less than 60 may warrant further investigation Patients race is not known. If the patient is , multiply the calculated GFR result provided by 1.21. GFR Estimate should not be used to alter drug dosages. 6 Followed protocol 7 Followed protocol 8 UNITS= mL/min/1.73m squared Unable to flag low results Results less than 60 may warrant further investigation Patients race is not known. If the patient is , multiply the calculated GFR result provided by 1.21. GFR Estimate should not be used to alter drug dosages. 9 Followed protocol 10 Followed protocol 11 Followed protocol 12 Followed protocol 13 XPert MRSA/SA Soft S kin Tissue Assay is included as part of Wound Culture. Further ID and Sensitivities to follow. 14 GSGPC^Gram Positive Cocci 1^1+ Gram Positive Cocci GSWBC^White Blood Cells NW^No WBC's Seen 15 Enterococcus species 16 Heavy Growth 17 Enterococ faecalis - (Group D) 18 Diagnosis cellulitis 19 UNITS= mL/min/1.73m squared Unable to flag low results Results less than 60 may warrant further investigation Patients race is not known. If the patient is , multiply the calculated GFR result provided by 1.21. GFR Estimate should not be used to alter drug dosages. 20 UNITS= mL/min/1.73m squared Unable to flag low results Results less than 60 may warrant further investigation Patients race is not known. If the patient is , multiply the calculated GFR result provided by 1.21. GFR Estimate should not be used to alter drug dosages. 21 LEFT FOOT DRAINAGE 22 XPert MRSA/SA Soft S kin Tissue Assay is included as part of Wound Culture. Further ID and Sensitivities to follow. 23 Strep agalactiae - ( Group B) 24 Moderate Growth Sensi Sensitivity Not Routinely Performed Heavy Growth Normal Skin Vanessa with Light Growth Presumptive Proteus 25 GSEPI^Epithelial Trang ls F^Few Epithelial Cells GSGPC^Gram Positive Cocci 1^1+ Gram Positive Cocci GSGPR^Gram Positive Rods F^Few Gram Positive Rods GSWBC^White Blood Cells F^Few WBC's 26 The estimated averag e glucose (eAG) is an approximation of the average glucose concentration in mg/dL over the last 90 days. The 2010 "Standards of Medical Care in Diabetes" of the [place] [employer] includes the following interpretations of Hemoglobin A1c results: >=6.5% Diagnostic of Diabetes 5.7-6.4% IFG/IGT ("Pre-Diabetes") 27 UNITS= mL/min/1.73m squared Unable to flag low results Results less than 60 may warrant further investigation Patients race is not known. If the patient is , multiply the calculated GFR result provided by 1.21. GFR Estimate should not be used to alter drug dosages. 28 Diagnosis cellulitis, foot 29 IDMS TRACEABLE 30 The MDRD equation no rmalizes or adjusts GFR to a typical body size (body surface area=1.73 m2). 31 HDL CHOLESTEROL RISK RANGES FOR CORONARY ARTERY DISEASE MALE: INCREASED RISK : LESS THAN 45 MG/DL AVERAGE RISK : 45 MG/DL DECREASED RISK : GREATER THAN 45 MG/DL FEMALE: INCREASED RISK : LESS THAN 55 MG/DL AVERAGE RISK : 55 MG/DL DECREASED RISK : GREATER THAN 55 MG/DL 32 CHOL/HDL RATIO RISK MALE FEMALE 1/2 AVERAGE RISK 3.43 3.27 AVERAGE RISK 4.97 4.44 2X AVERAGE RISK 9.5 7.05 3X AVERAGE RISK 23.9 11.04 33 HEMOGLOBIN A1C LEVEL S ARE RELATED TO MEAN BLOOD GLUCOSE DURING THE PRECEDING 2-3 MONTHS. 34 SARS COV 2 RNA(COVID 19), QL NAAT SARS COV 2 RNA Not Detected Reference range: Not Detected A Not Detected result means that SARS-CoV-2 RNA was not present in the specimen above the limit of detection. A Not Detected result does not rule out the possibility of COVID-19 and should not be used as the sole basis for treatment or patient management decisions. If COVID-19 is still suspected, based on exposure history together with other clinical findings, re-testing should be considered in the context of clinical observations and epidemiological data for patient management decisions. Test Method: Nucleic Acid Amplification Test including reverse sales consultant residential manager polymerase chain reaction (RT-PCR) and sales consultant residential manager mediated amplification (TMA). The test method meets the [place] Centers for Disease Control and Prevention (CDC) pre departure and arrival requirement for viral test for COVID-19 dated December 13, 2020. Testing requirements for traveling may change with time. The patient is responsible for determining the test requirement for each nation while they are traveling. This test has been authorized by the FDA under an Emergency Use Authorization (EUA) for use by authorized laboratories. Please review the "Fact Sheets" and FDA authorized labeling available for health care providers and patients using the following websites: https://www.[employer].com/home/Covid-19/HCP/ [facility]/fact-sheet.html https://www.[employer]/home/Covid-19/ Patients/[facility]/fact-sheet.html Due to the current public health emergency, [facility] is accepting samples from appropriate clinical sources collected using wide variety of swabs and transport media for COVID-19. Not Detected test results derived from specimens received in non-commercially manufactured viral collection kits or those not yet authorized by FDA for COVID-19 testing should be cautiously evaluated and take extra precautions such as additional clinical monitoring, including collection of additional specimen. Additional information about COVID-19 can be found at the [facility] website: www.[employer]/Covid19 For patients with a Detected or Inconclusive test result, please see CDC's " COVID-19 Treatments and Medications" page located at https://www.cdc.gov/ coronavirus/2019-ncov/your-health/nsxsnzlyly-yjk-vziuwc -illness.html for information on COVID-19 therapeutics. For patients with a Not Detected test result, please see CDC's "Vaccines for COVID-19" page located at https://www.cdc.gov/coronavirus/2019-ncov/vaccines/ index.html for information on COVID-19 vaccines. Test Performed by [facility], [facility], [address] [place] [address] Torsten Mohamud M.D., Ph.D., Director of Laboratories , [facility] [id number] Presumptive Negative The sensitivity and specificity of SARS-COV [...] a molecular assay, if necessary, for patient management. This test has not been FDA cleared or approved. This test has been authorized by FDA under an EUA for use by authorized laboratories. Procedures Date Code Description Status 04/24/2023 3008F Body Mass Index (BMI), Docum ented (pv) Completed 04/24/2023 1111F D/C Medications Reconciled W/Current Medications In Outpt MR Completed 04/02/2023 35880 Inject/Drain Art hrocentesis Major Joint/Bursa/Ganglion Cyst Completed 03/11/2023 J0702 Injection Betame thasone Acetate & Sodium Phosphate 3 MG Of Each Completed 03/11/2023 3078F Most Recent Diastolic BP <80 mm HG Completed 03/11/2023 3077F Most Recent Systolic BP >/=1 40mm HG Completed 03/11/2023 3008F Body Mass Index (BMI), Docum ented (pv) Completed 03/11/2023 28650 Inject/Drain Art hrocentesis Major Joint/Bursa/Ganglion Cyst Completed 02/04/2023 3079F Most Recent Diastolic BP 80- 90mm HG Completed 02/04/2023 3077F Most Recent Systolic BP >/=1 40mm HG Completed 02/04/2023 3008F Body Mass Index (BMI), Docum ented (pv) Completed 12/19/2022 3008F Body Mass Index (BMI), Docum ented (pv) Completed 12/04/2022 3080F Most Recent Diastolic BP >/= 90mm HG Completed 12/04/2022 3077F Most Recent Systolic BP >/=1 40mm HG Completed 12/04/2022 3044F Most Recent Hemoglobin A1c L evel <7.0% Completed 12/04/2022 3008F Body Mass Index (BMI), Docum ented (pv) Completed Medical Devices Description No Information Available Encounters Type Date Location Provider Dx Diagnosis Office Visit 05/08/2023 2:40p [facility] Chris Carrillo DO A41.9 Sepsis, unspecified organism Office Visit 04/24/2023 11:30a [facility] YAO Cervantes Z09 Encntr for f/u exam aft trtmt for cond oth than malig neoplm B37.0 Candidal stomatitis M25.562 Pain in left knee Z68.33 Body mass index [BMI ] 33.0-33.9, adult Office Visit 03/11/2023 3:00p [facility] Moise Reed DO I48.0 Paroxysmal atrial fibrillation L03.116 Cellulitis of left l ower limb I10 Essential (primary) hypertension M25.562 Pain in left knee E78.00 Pure hypercholestero lemia, unspecified E11.9 Type 2 diabetes shawna itus without complications 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 Z68.30 Body mass index [BMI ] 30.0-30.9, adult Office Visit 02/04/2023 3:30p [facility] Sherly Sawyer PA-C M25.562 Pain in left knee Office Visit 02/04/2023 2:40p [facility] Venkatesh Cervantes MD I25.10 Athscl heart disease of [place] coronary artery w/o ang pctrs I48.0 Paroxysmal atrial fi brillation I10 Essential (primary) hypertension E78.00 Pure hypercholestero lemia, unspecified R09.89 Oth symptoms and sig ns involving the circ and resp systems 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 Z68.30 Body mass index [BMI ] 30.0-30.9, adult Office Visit 12/19/2022 1:15p [facility] Barbie Paulino PA-C B34.9 Viral infection, unspecified Z20.822 Contact with and (peterson spected) exposure to Covid-19 Z68.30 Body mass index [BMI ] 30.0-30.9, adult Office Visit 12/04/2022 3:00p [facility] Moise Reed DO I12.9 Hypertensive chronic kidney disease w stg 1-4/unsp chr kdny N18.30 Chronic kidney disea se, stage 3 unspecified E11.628 Type 2 diabetes shawna itus with other skin complications L03.116 Cellulitis of left l ower limb Z68.1 Body mass index [BMI ] 19.9 or less, adult Assessments Date Code Description Provider 05/08/2023 A41.9 Sepsis Chris asher DO 04/24/2023 Z09 Encntr for f/u e xam aft trtmt for cond oth than malig neoplm YAO Cervantes 04/24/2023 B37.0 Candidal stomatitis YAO Cervantes 04/24/2023 M25.562 Pain in left knee YAO Petersen 04/24/2023 Z68.33 Body mass index [BMI] 33.0-3 3.9, adult Riki Dawn YAO Santos 04/02/2023 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, right knee Isabela Harvey, DO 04/02/2023 M25.561 Pain in right knee Isabela estrada, DO 03/11/2023 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, right knee Isabela Harvey, DO 03/11/2023 M25.561 Pain in right knee [...] mellitus Moise St jules, DO 03/11/2023 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 a 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 Moise Reed, DO 03/11/2023 Z68.30 Body mass index [BMI] 30.0-3 0.9, adult Moise Reed, DO 02/04/2023 M25.562 Pain of knee region Sherly Sawyer PA-C 02/04/2023 I25.10 Athscl heart dis ease of [place] coronary artery w/o ang pctrs Kyle Cervantes MD 02/04/2023 I48.0 Paroxysmal atrial fibrillati on Kyle Cervantes MD 02/04/2023 I10 Essential (primary) hyperten micaela Cervantes MD 02/04/2023 E78.00 Pure hypercholesterolemia, u nspecified Kyle Cervantes MD 02/04/2023 R09.89 Oth symptoms and signs involving the circ and resp systems Kyle Cervantes MD 02/04/2023 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 a nticoagulmatt Cervantes MD 02/04/2023 Z68.30 Body mass index [BMI] 30.0-3 0.9, adult Kyle Cervantes MD 12/19/2022 B34.9 Viral infection, unspecified Barbie Paulino PA-C 12/19/2022 Z20.822 Contact with and (suspected) exposure to Covid-19 Barbie Paulino PA-C 12/19/2022 Z68.30 Body mass index [BMI] 30.0-3 0.9, adult Barbie Paulino PA-C 12/04/2022 I12.9 Hypertensive chr onic kidney disease w stg 1-4/unsp chr kdny Moise Reed, DO 12/04/2022 N18.30 Chronic kidney disease, stag e 3 unspecified Moise Reed, DO 12/04/2022 E11.628 Type 2 diabetes mellitus with other skin complications Moise Reed, DO 12/04/2022 L03.116 Cellulitis of left lower tamayo b Moise Reed, DO 12/04/2022 Z68.1 Body mass index [BMI] 19.9 o r less, adult Moise Reed DO Plan of Treatment Future Appointment(s):* 07/28/2023 11:30 am - Moise Reed DO at [facility] * 08/07/2023 2:00 pm - Kyle Cervantes MD at [facility] 05/08/2023 - Chris Carrillo DO* A41.9 Sepsis Functional Status Description No Information Available Mental Status Description No Information Available Referrals Refer to Reason for Referral Status Appt Diana Pham CRNP Pulmonary Referral Closed 04/01/2023 [address] [facility] [address] Isabela Harvey DO Osteoarthritis o f Left knee Please call daughter, Kandi to set up appt [phone] Closed [address] [facility] [phone]
--- OUTSIDE RECORDS SUMMARY | 2023-10-17 00:55 | External Medical Summary ---
Author Name Unknown Address Unknown Organization : Laboratory Report Ordering Provider Test Date Status Merry Nunez 05/11/2023 11:21 Final Observation Date Value Abnormality Reference (Units ) Status Glucose, capillary POC (i-STAT) 05/11/2023 11:24 195 Above high normal 70-99 (MG/DL) Final Followed protocol Performing Location
--- OUTSIDE RECORDS SUMMARY | 2023-10-17 00:55 | External Medical Summary ---
Author Name Unknown Address Unknown Organization : Laboratory Report Ordering Provider Test Date Status Merry Nunez 05/11/2023 16:21 Final Observation Date Value Abnormality Reference (Units ) Status Glucose, capillary POC (i-STAT) 05/11/2023 16:23 171 Above high normal 70-99 (MG/DL) Final Followed protocol Performing Location
--- OUTSIDE RECORDS SUMMARY | 2023-10-17 00:55 | External Medical Summary ---
Author Name Unknown Address Unknown Organization : Laboratory Report Ordering Provider Test Date Status Merry Nunez 05/10/2023 19:18 Final Observation Date Value Abnormality Reference (Units ) Status Glucose, capillary POC (i-STAT) 05/10/2023 20:15 176 Above high normal 70-99 (MG/DL) Final Followed protocol Performing Location
--- OUTSIDE RECORDS SUMMARY | 2023-10-17 00:55 | External Medical Summary ---
Author Name Unknown Address Unknown Organization L1E:[facility] [address] [place] [address] Laboratory Report Ordering Provider Test Date Status Merry Nunez 05/10/2023 10:26 Final Observation Date Value Abnormality Reference (Units ) Status Methicillin resistant Staphylococcus aureus (MRSA) DNA [Presence] in Unspecified specimen by XENA with probe detection 05/10/2023 11:37 NEGATIVE NEGATIVE Final Performing Location [facility] [address] [place] [address]
--- OUTSIDE RECORDS SUMMARY | 2023-10-17 00:55 | External Medical Summary ---
Author Name Unknown Address Unknown Organization : Laboratory Report Ordering Provider Test Date Status Merry Nunez 05/10/2023 16:12 Final Observation Date Value Abnormality Reference (Units ) Status Glucose, capillary POC (i-STAT) 05/10/2023 16:36 183 Above high normal 70-99 (MG/DL) Final Followed protocol Performing Location
--- OUTSIDE RECORDS SUMMARY | 2023-10-17 00:55 | External Medical Summary ---
Author Name Unknown Address Unknown Organization : Laboratory Report Ordering Provider Test Date Status Merry Nunez 05/10/2023 11:21 Final Observation Date Value Abnormality Reference (Units ) Status Glucose, capillary POC (i-STAT) 05/10/2023 11:33 165 Above high normal 70-99 (MG/DL) Final Followed protocol Performing Location
--- OUTSIDE RECORDS SUMMARY | 2023-10-17 00:55 | External Medical Summary ---
Author Name Unknown Address Unknown Organization : Laboratory Report Ordering Provider Test Date Status Merry Nunez 05/11/2023 07:52 Final Observation Date Value Abnormality Reference (Units ) Status Glucose, capillary POC (i-STAT) 05/11/2023 08:05 146 Above high normal 70-99 (MG/DL) Final Followed protocol Performing Location
--- OUTSIDE RECORDS SUMMARY | 2023-10-17 00:56 | External Medical Summary ---
Author Name Unknown Address Unknown Organization : Laboratory Report Ordering Provider Test Date Status Merry Nunez 05/09/2023 17:30 Final Observation Date Value Abnormality Reference (Units ) Status Glucose, capillary POC (i-STAT) 05/09/2023 17:35 105 Above high normal 70-99 (MG/DL) Final Followed protocol Performing Location
--- OUTSIDE RECORDS SUMMARY | 2023-10-17 00:56 | External Medical Summary ---
Author Name Unknown Address Unknown Organization : Laboratory Report Ordering Provider Test Date Status Arnoldo Nunezree 05/09/2023 02:25 Final Observation Date Value Abnormality Reference (Units ) Status Glucose, capillary POC (i-STAT) 05/09/2023 02:27 145 Above high normal 70-99 (MG/DL) Final Followed protocol Performing Location
--- OUTSIDE RECORDS SUMMARY | 2023-10-17 00:56 | External Medical Summary ---
Author Name Unknown Address Unknown Organization : Laboratory Report Ordering Provider Test Date Status Merry Nunez 05/09/2023 11:41 Final Observation Date Value Abnormality Reference (Units ) Status Glucose, capillary POC (i-STAT) 05/09/2023 11:45 210 Above high normal 70-99 (MG/DL) Final Followed protocol Performing Location
--- OUTSIDE RECORDS SUMMARY | 2023-10-17 00:56 | External Medical Summary ---
Author Name Unknown Address Unknown Organization L1E:[address] [address] Laboratory Report Ordering Provider Test Date Status Christiane Fernandes 05/09/2023 06:52 Final Observation Date Value Abnormality Reference (Units ) Status Magnesium [Moles/volume] in Unspecified specimen 05/09/2023 07:18 2.0 Normal 1.8-2.4 (mg/d L) Final Performing Location [facility] [address] [place] [address]
--- OUTSIDE RECORDS SUMMARY | 2023-10-17 00:56 | External Medical Summary ---
Author Name Unknown Address Unknown Organization L1E:[facility] [address] [place] [address] Laboratory Report Ordering Provider Test Date Status Christiane Fernandes 05/09/2023 06:52 Final Observation Date Value Abnormality Reference (Units ) Status Sodium 05/09/2023 07:18 137 Normal 136-145 (mmol/L) Final Potassium [Moles/volume] in Specimen 05/09/2023 07:18 3.6 Normal 3.5-5.1 (mmol/L) Final Cl 05/09/2023 07:18 108 Above high normal 98-107 (mmol/L) Final CO2 05/09/2023 07:18 24 Normal 21-32 (mmol/L) Final Anion gap 05/09/2023 07:18 5.0 Normal 1.0-15.0 (MMOL/L) Final BUN 05/09/2023 07:18 18 Normal 7-18 (mg/dL) Final Creatinine 05/09/2023 07:18 1.07 Above high normal 0.55-1.02 (mg/dL) Final Glomerular filtration rate/1.73 sq M.predicted [Volume Rate/Area] in Serum, Plasma or Blood 05/09/2023 07:18 49 Final UNITS= mL/min/1.73m squared< br/> Unable to flag low results
Results less than 60 may warrant further investigation

Patients race is not known. If the patient is
Citizen Of [place], multiply the calculated GFR result provided by
1.21. GFR Estimate should not be used to alter drug dosages. Urea nitrogen/Creatinine [Mass Ratio] in Serum or Plasma 05/09/2023 07:18 16.8 Normal 10.0-20.00 Final Glucose 05/09/2023 07:18 118 Above high normal 70-99 (mg/dL) Final Osmolality of Serum or Plasma by calculation 05/09/2023 07:18 277 Normal 275-295 Fi nal Calcium [Mass/volume] in Unspecified specimen 05/09/2023 07:18 8.4 Below low normal 8.5-10.1 (mg/dL) Final Performing Location [facility] [address] [place] [address]
--- OUTSIDE RECORDS SUMMARY | 2023-10-17 00:56 | External Medical Summary ---
Author Name Unknown Address Unknown Organization L1E:[facility] [address] [place] [address] Laboratory Report Ordering Provider Test Date Status Karly Castaneda 05/10/2023 06:35 Final Observation Date Value Abnormality Reference (Units ) Status White Blood Count 05/10/2023 07:16 5.2 Normal 4.1-10.2 (10 3/uL) Final RBC 05/10/2023 07:16 4.43 Normal 3.80-5.20 (10 6/uL) Final Hemoglobin 05/10/2023 07:16 12.8 Normal 11.5-15.5 (g/dL) Final HCT 05/10/2023 07:16 38.5 Normal 35-46 (%) Final MCV 05/10/2023 07:16 86.9 Normal 82.0-98.0 (fL) Final MCH 05/10/2023 07:16 28.9 Normal 27.0-34.0 (pg) Final MCHC 05/10/2023 07:16 33.2 Normal 31.0-36.0 (g/dL) Final Erythrocyte distribution width [Entitic volume] 05/10/2023 07:16 49.1 Above high normal 37-49 (fL) Final RDW 05/10/2023 07:16 15.3 Above high normal 11.8-14.8 (%) Final Platelets 05/10/2023 07:16 171 Normal 150-360 (10 3/uL) Final Mean Platelet Volume 05/10/2023 07:16 10.4 Normal 9.4-12.3 (fL) Final Segs 05/10/2023 07:16 49.7 Normal 42-75 (%) Final Lymphs, absolute 05/10/2023 07:16 33.2 Normal 14-42 (%) Final Monos 05/10/2023 07:16 13.2 Above high normal 4-13 (%) Final Eosinophils 05/10/2023 07:16 2.5 Normal 0-6 (%) Final Basos 05/10/2023 07:16 1.0 Normal 0-2 (%) Final Immature Granulocyte, Percent 05/10/2023 07:16 0.4 Normal 0.0-0.7 (%) Final NRBC% (Auto) 05/10/2023 07:16 0.0 Normal 0.0-0.2 (/100 WBC) Final Absolute Segs 05/10/2023 07:16 2.6 Normal 1.8-6.6 (10 3uL) Final Lymphocytes [#/volume] in Unspecified specimen by Automated count 05/10/2023 07:16 1.7 Normal 1.0-3.1 (10 3/uL) Final Monos, Abs 05/10/2023 07:16 0.7 Normal 0.0-1.0 (10 3uL) Final Eos, Abs 05/10/2023 07:16 0.1 Normal 0.0-0.5 (10 3uL) Final Basos, Abs 05/10/2023 07:16 0.1 Normal 0.0-0.1 (10 3/uL) Final Granulocytes [#/volume] in Blood by Automated count 05/10/2023 07:16 0.0 Normal 0.0-0.0 (10 3/uL) Final NRBC # (Auto) 05/10/2023 07:16 0.000 Normal 0.000-0.012 (10 3/uL) Final Performing Location [address] [address]
--- OUTSIDE RECORDS SUMMARY | 2023-10-17 00:56 | External Medical Summary ---
Author Name Unknown Address Unknown Organization : Laboratory Report Ordering Provider Test Date Status Merry Nunez 05/09/2023 21:23 Final Observation Date Value Abnormality Reference (Units ) Status Glucose, capillary POC (i-STAT) 05/09/2023 23:08 228 Above high normal 70-99 (MG/DL) Final Followed protocol Performing Location
--- OUTSIDE RECORDS SUMMARY | 2023-10-17 00:56 | External Medical Summary | Continuity of Care Document ---
Author Name Unknown Address [address] [place] [address] Phone Organization [facility] Address [address] [place] [address] Phone Support Name Relationship Address Phone Kandi Swanson Daughter [address] [place] [address] Moise Reed Primary Care Provider [address] [place] [address] Imer King Emergency Provider [address] [place] [address] Oleg Bernabe Admit Provider [address] [place] [address] Tae Aldana Emergency Provider [address] [place] [address] Enrique Sousa Admit Provider [address] [place] [address] Chief Complaint and Reason for Visit Chief Complaint Cellulitis,foot Diabetic Education L foot cellulitis, diabetic ulcer Reason for Visit Cellulitis of left f oot Fever Weakness Atrial fibrillation CKD (chronic kidney disease) Chronic anticoagulation Diabetes Diabetic foot ulcer [id number] GERD (gastroesophageal reflux disease) Hyperlipidemia Hypertension Hypothyroidism Triple vessel coronary artery disease Cellulitis of left foot Fever Atrial fibrillation CHF (congestive heart failure) CKD (chronic kidney disease) Diabetic foot ulcer Hypertension Hyponatremia Hypothyroidism Allergies, Adverse Reactions, Alerts Allergen Type Severity Reaction Last Updated Verified Status meloxicam Allergy Unknown Confusion May 08, 2023 4:19pm Yes Active metformin Allergy Unknown Diarrhea May 08, 2023 4:19pm Yes Active Social History Smoking Status Status Start Date End Date Date of Observa tion Never smoked tobacco (finding) May 08, 2023 3:37pm Observation Status Observation Response Date of Response Current Tobacco Use None April 12 5:43pm Current Tobacco Use None May 08, 023 3:37pm Marital Status April 12, 2023 1 1:06pm 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 March 11:06pm Lives Family April 12, 2023 1 1:06pm Alcohol/Drug Use None August 10, 2020 9:44am Smokeless Tobacco Use None April 12, 2023 11:06pm Additional Data Assigned Sex Female Family History [...] ctive Sensory ataxia Active Back pain Active Atrial fibrillation Active Atrial fibrillation Active [...] PO Every Night May 07, 2020 9:59am [facility] er 2019 3:49pm Glimepiride Disconti nued 4 MG PO Every Morning May 17, 2020 10:[facility]am [facility] 11:39a m administer with breakfast Lancets [facility] 2019 12:00am May 23, 2021 7:48am As directed twice a day Dx E11.9 Blood Sugar Diagnostic (Onetouch Ultra Blue Test Strip) strip Disconti nued 0 [facility] 2019 12:00am May 23, 2021 7:48am As directed twice a day Dx E11.9 Metoprolol Tartrate (Lopressor) 25 mg tablet Disconti nued 25 MG PO Twice Daily 60 [facility] 2019 11:58am January 22, 2021 9:46am Apixaban (Eliquis) 5 mg tablet Disconti nued 5 MG PO Twice Daily 60 [facility] 2019 2:53pm Februa 2020 4:43pm Insulin Degludec (Tresiba Flextouch U-100) 100 unit/mL (3 mL) insulin pen Disconti nued 25 UNIT SUBCUT daily September 13, 2020 9:44am [facility] er 2019 10:06a m continue increasing by 2 units every 3 days until blood sugars are in the 130 range Clopidogrel Bisulfate (Clopidogrel) 75 mg tablet Disconti nued 75 MG PO 3 times per week September 13, 2020 10:02am March 21, 2022 10:35a m Insulin Degludec (Tresiba Flextouch U-100) 100 unit/mL (3 mL) insulin pen Disconti nued 25 UNIT SUBCUT daily [facility] r 2019 10:06am [facility] er 2019 1:41pm 38 units daily Insulin Degludec (Tresiba Flextouch U-100) 200 unit/mL (3 mL) insulin pen Disconti nued 38 UNIT SUBCUT daily 9 2019 1:39pm March 21, 2022 10:35a m 38 units daily Linagliptin (Tradjenta) 5 mg tablet Disconti nued 5 MG PO daily 30 r 2019 9:41am Februa ry 2020 7:44am Atorvastatin Calcium (Lipitor) 40 mg tablet Disconti nued 40 MG PO Every Night 30 2019 3:49pm April 30, 2021 9:00am Cholecalcifer ol (Vitamin D3) (Vitamin D3) 25 mcg (1,000 unit) capsule Active 25 MCG PO daily 30 r 2019 1:00am Omeprazole Disconti nued 20 MG PO Daily 90 2020 7:17am Novem er 2020 2:08pm Levothyroxine [...] .ROUTE .MEDSUPPLY 100 May 23, 2021 7:48am [facility] er 2020 10:44a m As directed twice a day Dx E11.9 Blood Sugar Diagnostic (Precision Q-I-D) strip Disconti nued 0 .ROUTE .MEDSUPPLY 100 May 23, 2021 7:48am May 08, 2023 4:28pm As directed twice a day Dx E11.9 Insulin Degludec (Tresiba Flextouch U-200) 200 unit/mL (3 mL) insulin pen Disconti nued 38 UNIT SUBCUT Every Night June 07, 2021 10:04am [facility] er 2020 7:22am Levothyroxine Sodium (Levothyroxin e) 75 mcg capsule Active 75 MCG PO daily June 18, 2021 12:04pm Gabapentin Disconti nued 800 MG PO .COMPLEX 60 July 01, 2021 1:17pm [facility] er 2020 10:54a m 800 mg PO take one tablet at lunchtime and one tablet at bedtime; Insulin Degludec (Tresiba Flextouch U-200) 200 unit/mL (3 mL) insulin pen Disconti nued 38 UNIT SUBCUT Every Night 2020 7:22am Novua2021 11:53a m Semaglutide (Ozempic) 0.25 mg or 0.5 mg(2 mg/1.5 mL) pen injector Disconti nued 0.25 MG SUBCUT Every Week 1.5 0 N[facility] r 2020 12:46pm May 02, 2022 7:56am Linagliptin (Tradjenta) 5 mg tablet Disconti nued 5 MG PO daily 30 [facility] r 2020 9:59am March 21, 2022 10:33a m Lancets Disconti nued 0 .ROUTE .MEDSUPPLY 100 [facility] r 2020 10:44am [facility] er 2020 1:43pm As directed twice a day Dx E11.9 Gabapentin Disconti nued 800 MG PO .COMPLEX 180 [facility] 2020 10:49am [facility] er 2020 1:43pm 800 mg PO take one tablet at lunchtime and one tablet at bedtime; Gabapentin Disconti nued 800 MG PO .COMPLEX 180 [facility] 2020 1:43pm [facility] er 2020 9:46am 800 mg PO take one tablet at lunchtime and one tablet at bedtime; Lancets Disconti nued 0 .ROUTE .MEDSUPPLY 100 [facility] 2020 1:43pm [facility] er 2021 11:27a m As directed twice a day Dx E11.9 Gabapentin Disconti nued 800 MG PO .COMPLEX 180 [facility] 2020 9:45am March 21, 2022 10:17a m [...] 29, 2018 12:00am March 22, 2018 2:37pm [place]-3/Dha/E pa/Fish Oil (Fish Oil [place]-3 Ec 1,200 Mg) [address] E[address]aps[address] Chrissie [...] 2022 12:00am June 05, 2022 12:13p m [place]-3 Fatty Acids ([place]-3) 1,000 MG capsule Disconti nued 1000 MG [...] Disconti nued 50 MG PO Twice Daily [facility] 2021 1:00am May 08, 2023 4:29pm Lidocaine (Lidoderm Patch) 700 MG adhesive patch,medicat ed Disconti nued 700 MG TOPIC Daily 30 2021 1:00am May 08, 2023 4:28pm Prednisone Disconti nued 40 MG PO Daily 4 [facility]2021 1:00am April 16, 2023 12:07p m Lidocaine (Lidoderm Patch) 700 MG adhesive patch,medicat ed Disconti nued 1 PATCH TOPIC Daily 30 2021 1:00am April 16, 2023 12:06p m may wear up to 12 hours Prednisone Disconti nued 40 MG PO Daily 5 [facility]2021 1:00am April 16, 2023 12:07p m Insulin [...] UAL As Directed May 08, 2023 12:00am Krill/[place]-3 /Dha/Epa/Lipi ds ([place]-3 Krill Oil 500 Mg Sfgl) 1 EACH [...] Disconti nued 500 MG PO Q24H 10 [facility] 2019 12:00am Oct[facility] r 2019 10:01a m Tramadol Hcl Disconti nued 50 MG [facility]H [facility] 12:[facility] 2019 12:02a m Doxycycline Hyclate Disconti nued 100 MG PO Twice Daily June 04, 2021 4:01pm [facility] er 2020 7:05am Azithromycin Disconti [...] nued MG PO September 06, 2020 12:00am [facility] er 2019 9:43am Insulin Degludec [...] UNIT SUBCUT daily September 11, 2020 3:14pm [facility] 2019 9:44am continue increasing by 2 [...] SUBCUT Every Night 9 r 2019 1:00am ua ry 2020 10:07a m Hydrocodone/A cetaminophen ([place] 5-325 Tablet) 5-325 mg tablet Disconti nued 1 TAB PO Twice Daily 60 r 2019 1:02am Docusate Sodium Disconti nued 100 MG PO Twice Daily November 19, 2020 1:00am February 28, 2021 11:13a m Hydrocodone/A cetaminophen ([place] 5-325 Tablet) 5-325 mg tablet Disconti nued 1 TAB PO Twice Daily 60 November 19, 20202020 1:02am Varicella-Zos ter Ge Vac,2 Of 2 (Shingrix Ge Antigen Component) 50 mcg suspension for reconstitutio n Disconti nued 50 MCG IM .COMPLEX 1 November 19, 2020 1:00am Januar 2020 11:33a m 50 mcg IM admin [...] r 2020 1:00am May 08, 2023 4:25pm [place]-3 Fatty Acids (Fish Oil Concentrate) 1,000 mg capsule Disconti nued 1000 MG PO Twice Daily 60 Novem[facility] r 2020 1:00am May 03, 2022 11:24a m Immunizations Immunization Event Date Not Given Reason Dose Number Block Greaser Lot Number Vaccine Information Statement (VIS) Detail SARS-COV-2 (COVID-19) MODERNA July 07, 2021 [id number] Fluzone QUAD August 16, 2017 Fluzone QUAD August 17, 2018 Influenza, high-dose, Quadrivalent October 18, 2020 [id number] Influenza, high-dose, Quadrivalent October 04, 2021 [id number] Pneumococcal 13-Valent Conjugate Vaccine September 08, 2018 [...] 3 Views LT May 08, 2023 3:35pm active Chest AP Portable May 08, 2023 3:40pm active Knee 3 Views RT May 08, 2023 3:40pm active Venous Dplx Extrem RT May 08, 2023 3:36pm com pleted Lower Extrem WO Cont LT May 08, 2023 6:04pm a ctive Relevant Diagnostic Tests and/or Laboratory Data Laboratory Results Test Date/Time Result Interpretation Reference Range Result Comment Performing Site White Blood Count April 15, 2023 5:54am 5.1 10^3/uL 4.1-10.2 [facility] [id number] [address] [facility] [place] [address] White Blood Count May 08, 2023 3:36pm 8.5 10^3/uL 4.1-10.2 [facility] [id number] [address] [facility] [place] [address] Red Blood Count April 15, 2023 5:54am 4.44 10^6/uL 3.80-5.20 [facility] [id number] [address] [facility] [place] [address] Red Blood Count May 08, 2023 3:36pm 5.03 10^6/uL 3.80-5.20 [facility] [id number] [address] [facility] [place] [address] Hemoglobin April 15, 2023 5:54am 12.5 g/dL 11.5-15.5 [facility] [id number] [address] [facility] [place] [address] Hemoglobin May 08, 2023 3:36pm 14.6 g/dL 11.5-15.5 [facility] [id number] [address] [facility] [place] [address] Hematocrit April 15, 2023 5:54am 38.6 % 35-46 [facility] [id number] [address] [facility] [place] [address] Hematocrit May 08, 2023 3:36pm 43.6 % 35-46 [facility] [id number] [address] [facility] [place] [address] Mean Corpuscular Volume April 15, 2023 5:54am 86.9 fL 82.0-98.0 [facility] [id number] [address] [place] [address] Mean Corpuscular Volume May 08, 2023 3:36pm 86.7 fL 82.0-98.0 [facility] [id number] [address] [place] [address] Mean Corpuscular Hemoglobin April 15, 2023 5:54am 28.2 pg 27.0-34.0 [facility] [id number] [address] [place] [address] Mean Corpuscular Hemoglobin May 08, 2023 3:36pm 29.0 pg 27.0-34.0 [facility] [id number] [address] [place] [address] Mean Corpuscular Hemoglobin Concent April 15, 2023 5:54am 32.4 g/dL 31.0-36.0 [facility] [id number] [address] [place] [address] Mean Corpuscular Hemoglobin Concent May 08, 2023 3:36pm 33.5 g/dL 31.0-36.0 [facility] [id number] [address] [place] [address] RDW Standard Deviation April 15, 2023 5:54am 46.8 fL 37-49 [facility] [id number] [address] [place] [address] RDW Standard Deviation May 08, 2023 3:36pm 47.7 fL 37-49 [facility] [id number] [address] [place] [address] RDW Coefficient of Variation April 15, 2023 5:54am 14.7 % 11.8-14.8 [facility] [id number] [address] [place] [address] RDW Coefficient of Variation May 08, 2023 3:36pm 15.0 % 11.8-14.8 [facility] [id number] [address] [place] [address] Platelet Count April 15, 2023 5:54am 191 10^3/uL 150-360 [facility] [id number] [address] [facility] [place] [address] Platelet Count May 08, 2023 3:36pm 185 10^3/uL 150-360 [facility] [id number] [address] [facility] [place] [address] Mean Platelet Volume April 15, 2023 5:54am 10.4 fL 9.4-12.3 [facility] [id number] [address] [facility] [place] [address] Mean Platelet Volume May 08, 2023 3:36pm 10.5 fL 9.4-12.3 [facility] [id number] [address] [facility] [place] [address] Neutrophils (%) (Auto) April 15, 2023 5:54am 49.5 % 42-75 [facility] [id number] [address] [facility] [place] [address] Neutrophils (%) (Auto) May 08, 2023 3:36pm 81.3 % 42-75 [facility] [id number] [address] [facility] [place] [address] Lymphocytes (%) (Auto) April 15, 2023 5:54am 33.1 % 14-42 [facility] [id number] [address] [facility] [place] [address] Lymphocytes (%) (Auto) May 08, 2023 3:36pm 11.4 % 14-42 [facility] [id number] [address] [facility] [place] [address] Monocytes (%) (Auto) April 15, 2023 5:54am 10.7 % 4-13 [facility] [id number] [address] [facility] [place] [address] Monocytes (%) (Auto) May 08, 2023 3:36pm 6.4 % 4-13 [facility] [id number] [address] [facility] [place] [address] Eosinophils (%) (Auto) April 15, 2023 5:54am 5.5 % 0-6 [facility] [id number] [address] [place] [address] Eosinophils (%) (Auto) May 08, 2023 3:36pm 0.0 % 0-6 [facility] [id number] [address] [place] [address] Basophils (%) (Auto) April 15, 2023 5:54am 1.0 % 0-2 [facility] [id number] [address] [facility] [place] [address] Basophils (%) (Auto) May 08, 2023 3:36pm 0.5 % 0-2 [facility] [id number] [address] [facility] [place] [address] Immature Granulocytes % April 15, 2023 5:54am 0.2 % 0.0-0.7 [facility] [id number] [address] [place] [address] Immature Granulocytes % May 08, 2023 3:36pm 0.4 % 0.0-0.7 [facility] [id number] [address] [facility] [place] [address] Neutrophils # (Auto) April 15, 2023 5:54am 2.5 10^3uL 1.8-6.6 [facility] [id number] [address] [place] [address] Neutrophils # (Auto) May 08, 2023 3:36pm 6.9 10^3uL 1.8-6.6 [facility] [id number] [address] [place] [address] Lymphocytes # (Auto) April 15, 2023 5:54am 1.7 10^3/uL 1.0-3.1 [facility] [id number] [address] [place] [address] Lymphocytes # (Auto) May 08, 2023 3:36pm 1.0 10^3/uL 1.0-3.1 [facility] [id number] [address] [place] [address] Monocytes # (Auto) April 15, 2023 5:54am 0.6 10^3uL 0.0-1.0 [facility] [id number] [address] [place] [address] Monocytes # (Auto) May 08, 2023 3:36pm 0.5 10^3uL 0.0-1.0 [facility] [id number] [address] [place] [address] Eosinophils # (Auto) April 15, 2023 5:54am 0.3 10^3uL 0.0-0.5 [facility] [id number] [address] [place] [address] Eosinophils # (Auto) May 08, 2023 3:36pm 0.0 10^3uL 0.0-0.5 [facility] [id number] [address] [facility] [address] Basophils # (Auto) April 15, 2023 5:54am 0.1 10^3/uL 0.0-0.1 [facility] [id number] [address] [facility] [address] Basophils # (Auto) May 08, 2023 3:36pm 0.0 10^3/uL 0.0-0.1 [facility] [id number] [address] [facility] [place] [address] Erythrocyte Sedimentatio n Rate April 15, 2023 5:54am 33 mm/hr 0-30 [facility] [id number] [address] [facility] [place] [address] Erythrocyte Sedimentatio n Rate May 08, 2023 3:36pm 19 mm/hr 0-30 [facility] [id number] [address] [place] [address] Prothrombin Time May 08, 2023 4:04pm 18.4 SEC 9.8-12.7 [place] [id number] [address] [facility] [place] [address] INR Internationa l Normalized Ratio May 08, 2023 4:04pm 1.64 [id number] [place] [address] Activated Partial Thromboplast Time May 08, 2023 4:04pm 63.0 SEC 25-36 [facility] [id number] [address] [place] [address] Urine Color April 12, 2023 7:25pm Yellow Yellow [facility] [id number] [address] [place] [address] Urine Color May 08, 2023 4:44pm Yellow Yellow [facility] [id number] [address] [place] [address] Urine Clarity April 12, 2023 7:25pm Clear Clear [facility] [id number] [address] [place] [address] Urine Clarity May 08, 2023 4:44pm Clear Clear [facility] [id number] [address] [place] [address] Urine pH April 12, 2023 7:25pm 5.5 6.0-8.0 [facility] [id number] [address] [place] [address] Urine pH May 08, 2023 4:44pm 7.0 6.0-8.0 [facility] [id number] [address] [place] [address] Urine Specific [place] April 12, 2023 7:25pm 1.010 1.000-1.03 0 [facility] [id number] [address] [place] [address] Urine Specific [place] May 08, 2023 4:44pm 1.018 1.000-1.03 0 [facility] [id number] [address] [place] [address] Urine Protein April 12, 2023 7:25pm Negative Negative [facility] [id number] [address] [place] [address] Urine Protein May 08, 2023 4:44pm Trace Negative [facility] [id number] [address] [place] [address] Urine Glucose (UA) April 12, 2023 7:25pm Negative Negative [facility] [id number] [address] [place] [address] Urine Glucose (UA) May 08, 2023 4:44pm Negative Negative [facility] [id number] [address] [place] [address] Urine Ketones April 12, 2023 7:25pm Negative Negative [facility] [id number] [address] [place] [address] Urine Ketones May 08, 2023 4:44pm Negative Negative [facility] [id number] [address] [place] [address] Urine Occult Blood April 12, 2023 7:25pm Negative Negative [facility] [id number] [address] [place] [address] Urine Occult Blood May 08, 2023 4:44pm Negative Negative [facility] [id number] [address] [place] [address] Urine Nitrate April 12, 2023 7:25pm Negative Negative [facility] [id number] [address] [place] [address] Urine Nitrate May 08, 2023 4:44pm Negative Negative [facility] [id number] [address] [place] [address] Urine Bilirubin April 12, 2023 7:25pm Negative Negative [facility] [id number] [address] [place] [address] Urine Bilirubin May 08, 2023 4:44pm Negative Negative [facility] [id number] [address] [place] [address] Urine Urobilinogen April 12, 2023 7:25pm 0.2 0.2-1.0 [facility] [id number] [address] [place] [address] Urine Urobilinogen May 08, 2023 4:44pm 0.2 0.2-1.0 [facility] [id number] [address] [place] [address] Urine Leukocyte Esterase April 12, 2023 7:25pm Negative Negative [facility] [id number] [address] [place] [address] Urine Leukocyte Esterase May 08, 2023 4:44pm Negative Negative [facility] [id number] [address] [place] [address] Urine WBC May 08, 2023 4:44pm 0-2 /HPF 0-3 [facility] [id number] [address] [place] [address] Urine Culture Indicated April 12, 2023 7:25pm No Culture not indicated. [facility] [id number] [address] [place] [address] Urine Culture Indicated May 08, 2023 4:44pm No Culture not indicated. [facility] [id number] [address] [place] [address] Urine Bacteria May 08, 2023 4:44pm Few /HPF NONE SEEN [facility] [id number] [address] [place] [address] Sodium Level April 15, 2023 5:54am 138 mmol/L 136-145 [facility] [id number] [address] [place] [address] Sodium Level May 08, 2023 4:04pm 133 mmol/L 136-145 [facility] [id number] [address] [place] [address] Potassium Level April 15, 2023 5:54am 4.0 mmol/L 3.5-5.1 [facility] [id number] [address] [place] [address] Potassium Level May 08, 2023 4:04pm 4.1 mmol/L 3.5-5.1 [facility] [id number] [address] [place] [address] Chloride Level April 15, 2023 5:54am 108 mmol/L 98-107 [facility] [id number] [address] [place] [address] Chloride Level May 08, 2023 4:04pm 100 mmol/L 98-107 [facility] [id number] [address] [facility] [place] [address] Carbon Dioxide Level April 15, 2023 5:54am 26 mmol/L [facility] [id number] [address] [place] [address] Carbon Dioxide Level May 08, 2023 4:04pm 28 mmol/L [facility] [id number] [address] [place] [address] Anion Gap April 15, 2023 5:54am 4.0 MMOL/L 1.0-15.0 [facility] [id number] [address] [place] [address] Anion Gap May 08, 2023 4:04pm 5.0 MMOL/L 1.0-15.0 [facility] [id number] [address] [facility] [place] [address] Blood Urea Nitrogen April 15, 2023 5:54am 24 mg/dL 06-02 [facility] [id number] [address] [facility] [place] [address] Blood Urea Nitrogen May 08, 2023 4:04pm 22 mg/dL 06-02 [facility] [id number] [address] [facility] [place] [address] Creatinine April 15, 2023 5:54am 1.20 mg/dL 0.55-1.02 [facility] [id number] [address] [facility] [place] [address] Creatinine May 08, 2023 4:04pm 1.34 mg/dL 0.55-1.02 [facility] [id number] [address] [facility] [place] [address] Estimated GFR (MDRD) April 15, 2023 5:54am 43 UNITS= mL/min/1.73m squared Unable to flag low results Results less than 60 may warrant further investigationPa tients race is not known. If the patient is , multiply the calculated GFR result provided by 1.21. GFR Estimate should not be used to alter drug dosages. [facility] [id number] [address] [place] [address] Estimated GFR (MDRD) May 08, 2023 4:04pm 38 UNITS= mL/min/1.73m squared Unable to flag low results Results less than 60 may warrant further investigationPa austennts race is not known. If the patient is , multiply the calculated GFR result provided by 1.21. GFR Estimate should not be used to alter drug dosages. [facility] [id number] [address] [facility] [place] [address] BUN/Creatini ne Ratio April 15, 2023 5:54am 20.1 10.0-20.00 [facility] [id number] [address] [facility] [place] [address] BUN/Creatini ne Ratio May 08, 2023 4:04pm 16.4 10.0-20.00 [facility] [id number] 214 [facility] [place] [address] Glucose Level April 15, 2023 5:54am 171 mg/dL 70-99 [facility] [id number] 214 [facility] [place] [address] Glucose Level May 08, 2023 4:04pm 136 mg/dL 70-99 [facility] [id number] 214 [facility] [place] [address] Bedside Glucose April 16, 2023 11:21am 180 MG/DL 70-99 Followed protocol Point of Care 214 [facility] [place] [address] Bedside Glucose May 08, 2023 3:59pm 147 MG/DL 70-99 Followed protocol Point of Care 214 [facility] [place] [address] Calculated Osmolality April 15, 2023 5:54am [phone] [facility] [id number] 214 [facility] [place] [address] Calculated Osmolality May 08, 2023 4:04pm [phone] [facility] [id number] [address] [facility] [place] [address] Calcium Level April 15, 2023 5:54am 8.9 mg/dL 8.5-10.1 [facility] [id number] 214 [place] [address] Calcium Level May 08, 2023 4:04pm 9.1 mg/dL 8.5-10.1 [facility] [id number] 214 [place] [address] Troponin I High Sensitivity May 08, 2023 4:04pm 11.1 ng/L 0.00-49.9 | | FEMALE: | MALE: || Low Risk (Negative) | < 50 ng/L | < 80 ng/L | | Intermediate Risk | 50 - 110 ng/L | 80 - 110 ng/L | | High Risk (Critical)| >= 111 ng/L | >= 111 ng/L | | | [facility] [id number] 214 [place] [address] Magnesium Level May 08, 2023 4:04pm 1.5 mg/dL 1.8-2.4 [facility] [id number] [address] [place] [address] [place] [address] Aspartate Amino Transf (AST/SGOT) April 13, 2023 6:55am 52 U/L [facility] [id number] 214 [place] [address] Aspartate Amino Transf (AST/SGOT) May 08, 2023 4:04pm 60 U/L [facility] [id number] 214 [place] [address] Alanine Aminotransfe rase (ALT/SGPT) April 13, 2023 6:55am 42 U/L 13-56 [facility] [id number] [address] [place] [address] [place] [address] Alanine Aminotransfe rase (ALT/SGPT) May 08, 2023 4:04pm 58 U/L 13-56 [facility] [id number] [address] [facility] [place] [address] Alkaline Phosphatase April 13, 2023 6:55am 98 U/L 45-117 [facility] [id number] [address] [facility] [place] [address] Alkaline Phosphatase May 08, 2023 4:04pm 114 U/L 45-117 [facility] [id number] [address] [facility] [place] [address] Total Bilirubin April 13, 2023 6:55am 1.07 mg/dL 0.20-1.00 [facility] [id number] [address] [facility] [place] [address] Total Bilirubin May 08, 2023 4:04pm 1.33 mg/dL 0.20-1.00 [facility] [id number] [address] [facility] [place] [address] Total Protein April 13, 2023 6:55am 6.5 g/dL 6.40-8.20 [facility] [id number] [address] [facility] [place] [address] Total Protein May 08, 2023 4:04pm 8.2 g/dL 6.40-8.20 [facility] [id number] [address] [facility] [place] [address] Albumin April 13, 2023 6:55am 2.9 g/dL 3.4-5.0 [facility] [id number] [address] [facility] [place] [address] Albumin May 08, 2023 4:04pm 3.6 g/dL 3.4-5.0 [facility] [id number] [address] [facility] [place] [address] Globulin April 13, 2023 6:55am 3.6 Ratio 1.3-4.9 [facility] [id number] [address] [facility] [place] [address] Globulin May 08, 2023 4:04pm 4.6 Ratio 1.3-4.9 [facility] [id number] 214 [facility] [place] [address] Albumin/Glob ulin Ratio April 13, 2023 6:55am 0.8 Ratio 1.2-2.3 [facility] [id number] [address] [place] [address] Albumin/Glob ulin Ratio May 08, 2023 4:04pm 0.8 Ratio 1.2-2.3 [facility] [id number] [address] [facility] [place] [address] Lactic Acid Level April 12, 2023 6:25pm 1.9 mmol/L 0.40-2.00 [facility] [id number] [address] [facility] [place] [address] Lactic Acid Level May 08, 2023 4:04pm 2.6 mmol/L 0.40-2.00 Results checked & Critical results called to Josefa/ER on 05/08/23 at 1637 by CAROLINE. [facility] [id number] [address] [facility] [place] [facility] [place] [address] Lipase May 08, 2023 4:04pm 51 U/L 13-75 [facility] [id number] 214 [place] [address] Hemoglobin A1c April 13, 2023 6:55am 7.5 % 3.8-5.6 [facility] [id number] 214 [place] [address] Estimated Average Glucose April 13, 2023 6:55am 169 mg/dL 70-126 The estimated average glucose (eAG) is an approximation of the average glucose concentration in mg/dL over the last 90 days.The 2010 "Standards of Medical Care in Diabetes" of the [place] [employer] includes the following interpretations of Hemoglobin A1c results: >=6.5% Diagnostic of Diabetes 5.7-6.4% IFG/IGT ("Pre-Diabetes" ) [facility] [id number] 214 [place] [address] B-Type Natriuretic Peptide May 08, 2023 4:04pm 234 PG/ML 0-100 [facility] [id number] [address] [place] [address] Thyroid Stimulating Hormone (TSH) April 13, 2023 6:55am 1.260 uIU/mL 0.358-3.74 [facility] [id number] 214 [place] [address] C-Reactive Protein April 15, 2023 5:54am 3.22 mg/dL 0.00-0.30 [facility] [id number] 214 [place] [address] C-Reactive Protein May 08, 2023 4:04pm 6.53 mg/dL 0.00-0.30 [facility] [id number] 214 [place] [address] Procalcitoni n May 08, 2023 4:04pm 0.69 [...] risk of severe sepsis and/or septic shock. [facility] [id number] 214 [place] [address] Influenza Type A (Rapid) April 12, 2023 6:20pm Negative Negative [facility] [id number] [address] [place] [address] Influenza Type B (Rapid) April 12, 2023 6:20pm Negative Negative [facility] [id number] 214 [place] [address] SARS-CoV-2 (PCR) April 12, 2023 6:51pm Negative Negative Negative results do not preclude [id number]-[id number]-[id number] tion and should not be used as [...] and not for any viruses or pathogens. [facility] [id number] 214 [place] [address] SARS-CoV-2 (PCR) May 08, 2023 4:23pm Negative Negative Negative results do not preclude RVYB-[id number]-5nztrh tion and should not be used as [...] and not for any viruses or pathogens. [facility] [id number] 214 [place] [address] Soft Tissue MRSA (PCR) April 13, 2023 11:03am Negative NEGATIVE [facility] [id number] 214 [place] [address] Soft Tissue S. aureus (PCR) April 13, 2023 11:03am Negative NEGATIVE XPert MRSA/SA Soft Skin & Tissue Assay is included as part of Wound Culture.Further ID and Sensitivities to follow. [facility] [id number] 214 [place] [address] SARS-CoV-2 Antigen (Rapid) April 12, 2023 6:20pm [...] an EUA for use by authorized laboratories. [facility] [id number] [address] [place] [address] SARS-CoV-2 Antigen (Rapid) May 08, 2023 4:04pm [...] an EUA for use by authorized laboratories. [facility] [id number] [address] [place] [address] Microbiology Results Procedure Source Result Collection Date/Time Result Date/Time Result Comment Performing Site Blood Culture Blood No Growth after 5 days April 16, 2023 12:44am April 21, 2023 12:50am [facility] [id number] [address] [facility] [place] [address] Gram Stain Drainage, Left Foot April 13, 2023 11:03am April 14, 2023 11:26am [facility] [id number] [address] [facility] [address] Wound Culture Drainage, Left Foot Strep agalactiae - (Group B) April 13, 2023 11:03am April 15, 2023 10:43am [facility] [id number] [address] [facility] [address] Diagnostic Imaging Reports Report Dictated Date/Time Dictated By Status Magnetic Resonance Imaging Report April 12, 2023 8:56p m Nay Rodriguez MD completed [facility] [address] [facility], [address] Diagnostic Imaging Signed Patient: Grazyna Dale : [...] Signed By: Nay Rodriguez MD Signed Date/Time:04/12/232102 Elementary Instructional Coach: PWRSCRIBE Dictated Date: 04/12/232055 Transcribed Date/Time:04/12/232055 CC: Moise Reed DO; Imer King DO ; Report Dictated Date/Time Dictated By Status Magnetic Resonance Imaging Report April 14, 2023 7:30a m Nay Rodriguez MD completed [address], [facility] Diagnostic Imaging Signed Patient: Grazyna Dale [...] Signed By: Nay Rodriguez MD Signed Date/Time:04/14/23730 Elementary Instructional Coach: PWRSCRIBE Dictated Date: 04/14/23729 Transcribed Date/Time:04/14/23729 CC: Moise Reed DO; Imer King DO ; Report Dictated Date/Time Dictated By Status Echocardiogram April 14, 2023 7:05am Pedro Paez DO completed [address], [facility] ECHOCARDIOGRAM REPORT Signed Patient: Grzayna Dale : 1940 Female DOS: 04/14/23 0705 Primary Care Physician: Moise Reed DO Ordering Physician: Gabriela Tellez PA-C Referring Physician: Location: Cardiology [facility] [address] [facility] [place] [address] Echocardiogram Report Name: Grazyna Dale Ordering Physician: Gabriela Pang Patient Location: ^AC109^A Gender: Female : 1940 Race: [place] Age: [...] Electronically Signed By: Pedro Paez DO Signed Date/Time:04/14/231236 Elementary Instructional Coach: ALEXANDER Dictated Date: 04/14/23704 Transcribed Date/Time:04/14/231236 CC: Gabriela Tellez PA-C; Moise Reed DO ; Report Dictated Date/Time Dictated By Status Magnetic Resonance Imaging Report April 16, 2023 11:38 am Luis nielsen [address] [place] [address] Diagnostic Imaging Signed Patient: Grazyna Dale : [...] Signed By: Luis Strong Signed Date/Time:04/16/23 1144 Elementary Instructional Coach: PWRSCRIBE Dictated Date: 04/16/23 1138 Transcribed Date/Time:04/16/23 1138 CC: Moise Reed DO; Tonya Brandt PA-C ; Report Dictated Date/Time Dictated By Status Magnetic Resonance Imaging Report May 08, 2023 4:42pm Maynor Le MD [address], [address] Diagnostic Imaging Signed Patient: Grazyna Dale : [...] Signed By: Maynor Le MD Signed Date/Time:05/08/231644 Elementary Instructional Coach: PWRSCRIBE Dictated Date: 05/08/231641 Transcribed Date/Time:05/08/231641 CC: Moise Reed DO; Tae Aldana MD ; Vital Signs Vital Reading Result Reference Range Collection Date/Time Weight 82.10 kg April 14, 2023 11:27am Body Temperature 97.5 [degF] 97.6-99.6 April 16, 2 023 1:30pm Heart Rate 73 /min 60-90 April 16, 2023 1:30pm Respiratory rate 20 /min -April 16 2 023 1:30pm Oxygen saturation by Pulse oximetry 95 % 95-100 April 16, 2023 1:30p m BP Systolic 115 mm[Hg] April 16, 2023 1:30pm BP Diastolic 64 mm[Hg] April 16, 2023 1:30pm BMI (Body Mass Index) 31.0 kg/m2 April 142022 11:27am Height 64 [in_i] May 08, 2023 3:19pm Weight 74.84 kg May 08, 2023 3:19pm Body Temperature 98.1 [degF] 97.6-99.6 May 08, 2023 6:37pm Heart Rate 99 /min 60-90 May 08, 2023 6:00pm Respiratory rate 17 /min 12-May 08, 2023 6:00pm Oxygen saturation by Pulse oximetry 95 % 95-100 May 08, 2023 6:00 pm BP Systolic 113 mm[Hg] May 08, 2023 6:00pm BP Diastolic 40 mm[Hg] May 08, 2023 6:00pm Advance Directives Advance Directive Response Recorded Date/ Time Do you have Advance Directives? No August 10, 2020 9:44am Does The Patient Have A Living Will No April 12, 2023 11:06pm Insurance Providers Guarantor Grazyna Dale Address [address] [place] [id number] Contact Info. Home Phone: Payer Policy Id Coverage Id Subscriber's Name Subscriber Id Effective Date Expiration Date Aettrixie Medicare MCREP [id number] Grazyna Dale [id number] Johan Hardin MCREP [id number] Grazyna Dale [id number] Self Pay Self N/A Encounters Encounter Location(s) Arrival/Admit Date Discharge/Depart Date Provider(s) Discharged Inpatient [facility]Ac[facility] April 12, 2023 10:06pm April 16, 2023 1:40pm Oleg Bernabe DO Registered Recurring [facility]-Diabetic Education April 28, 2023 9:25am Moise Reed DO Admitted Inpatient [facility] May 08, 2023 6:37pm Enrique Sousa MD Recent Diagnosis Onset Date Cellulitis of left foot Fever Weakness Atrial fibrillation CKD (chronic kidney disease) Chronic anticoagulation Diabetes Diabetic foot ulcer [id number] GERD (gastroesophageal reflux disease) Hyperlipidemia Hypertension Hypothyroidism May 22, 2015 Triple vessel coronary artery disease Cellulitis of left foot Fever Atrial fibrillation CHF (congestive heart failure) CKD (chronic kidney disease) Diabetic foot ulcer Hypertension Hyponatremia Hypothyroidism May 22, 2015 Mental Status Observation Response Date Recorded Cognition Normal Cognition April 16, 2023 9:00am Assessments Diagnosis Onset Date Resolution Status Cellulitis of left foot acut e Fever acute Weakness acute Atrial fibrillation chronic CKD (chronic kidney disease) chronic Chronic anticoagulation grab setter he Diabetes chronic Diabetic foot ulcer chronic [id number] chronic GERD (gastroesophageal reflux disease) chronic Hyperlipidemia chronic Hypertension chronic Hypothyroidism May 22, 2015 chronic Triple vessel coronary artery disease chronic Cellulitis of left foot acut e Fever acute Atrial fibrillation chronic CHF (congestive heart failure) chronic CKD (chronic kidney disease) chronic Diabetic foot ulcer chronic Hypertension chronic Hyponatremia chronic Hypothyroidism May 22, 2015 chronic Plan of Treatment Future Tests Future scheduled test information is unavailable Pending Tests Test Name Ordered Date Scheduled Date Gram Stain May 08, 2023 5:57pm Blood Culture May 08, 2023 4:04pm Blood Culture May 08, 2023 4:04pm Wound Culture May 08, 2023 5:57pm Soft Tissue MRSA (PCR) May 08, 2023 5:57pm Soft Tissue S. aureus (PCR) May 08, 2023 5:57 pm Chest AP Portable May 08, 2023 3:40pm May 082022 3:40pm Foot 3 Views LT May 08, 2023 3:35pm April 3:35pm Knee 3 Views RT May 08, 2023 3:40pm April 3:40pm Lower Extrem WO Cont LT May 08, 2023 6:04pm J une 2022 6:04pm CBC w/ Auto Diff May 08, 2023 6:01pm April 5:45am Magnesium May 08, 2023 6:05pm April 5:45am Resuscitation Status May 08, 2023 6:01pm May 08, 2023 6:01pm Future Visits Future appointment information is unavailable Referrals to Other Providers Reason for Referral Referral Start Date Provider Provider Contact Information Provider Address Moise Reed Work Phone: [address] [facility] [address] Future Procedures Procedure Name Ordered Date Scheduled Date Admit to Hospital April 12, 2023 9:29pm March 9:29pm Diagnosis April 12, 2023 9:29pm April 12, 2023 9:29pm Discharge April 16, 2023 12:25pm April 16, 2023 12:25pm Inpatient Bed April 12, 2023 9:29pm April 12, 2023 9:29pm Wound Culture & Gram Statin May 08, 2023 5:54 pm May 08, 2023 5:57pm Admit to Hospital May 08, 2023 6:01pm May 082022 6:01pm Hospitalist Consult for Admission May 08 4:49pm May 08, 2023 4:49pm Basic Metabolic Panel May 08, 2023 6:01pm Ulises e 2022 5:45am Diagnosis May 08, 2023 6:01pm April 6:02pm Observation Bed May 08, 2023 6:01pm April 6:01pm Telemetry May 08, 2023 6:01pm April 6:01pm Future Medications Future medication information is unavailable Patient Instructions Cellulitis (Skin Infection), Adult (DC) Goals Acute Goals Remain Free of Injury Safely Transitions To Next L evel Of Care Demonstrates the ability to safely transition to the next level of care. Exhibit Optimal Tissue Perfu micaela Maintain Intact Skin Integri ty
--- OUTSIDE RECORDS SUMMARY | 2023-10-17 00:56 | External Medical Summary ---
Author Name Unknown Address Unknown Organization : Laboratory Report Ordering Provider Test Date Status Merry Nunez 05/10/2023 07:21 Final Observation Date Value Abnormality Reference (Units ) Status Glucose, capillary POC (i-STAT) 05/10/2023 07:24 88 Normal 70-99 (MG/DL) Final Performing Location
--- OUTSIDE RECORDS SUMMARY | 2023-10-17 00:56 | External Medical Summary ---
Author Name Unknown Address Unknown Organization L1E:[facility] [address] [place] [address] Laboratory Report Ordering Provider Test Date Status Karly Castaneda 05/10/2023 06:35 Final Observation Date Value Abnormality Reference (Units ) Status Sodium 05/10/2023 07:23 141 Normal 136-145 (mmol/L) Final Potassium [Moles/volume] in Specimen 05/10/2023 07:23 3.8 Normal 3.5-5.1 (mmol/L) Final Cl 05/10/2023 07:23 112 Above high normal 98-107 (mmol/L) Final CO2 05/10/2023 07:23 26 Normal 21-32 (mmol/L) Final Anion gap 05/10/2023 07:23 3.0 Normal 1.0-15.0 (MMOL/L) Final BUN 05/10/2023 07:23 14 Normal 7-18 (mg/dL) Final Creatinine 05/10/2023 07:23 0.95 Normal 0.55-1.02 (mg/dL) Final Glomerular filtration rate/1.73 sq M.predicted [Volume Rate/Area] in Serum, Plasma or Blood 05/10/2023 07:23 56 Final UNITS= mL/min/1.73m squared< br/> Unable to flag low results
Results less than 60 may warrant further investigation

Patients race is not known. If the patient is
Algerian, multiply the calculated GFR result provided by
1.21. GFR Estimate should not be used to alter drug dosages. Urea nitrogen/Creatinine [Ma ss Ratio] in Serum or Plasma 05/10/2023 07:23 14.7 Normal 10.0-20.00 Final Glucose 05/10/2023 07:23 86 Normal 70-99 (mg/dL) Final Osmolality of Serum or Plasm a by calculation 05/10/2023 07:23 281 Normal 275-295 Final Calcium [Mass/volume] in Unspecified specimen 05/10/2023 07:23 9.0 Normal 8.5-10.1 (mg/dL) Final Performing Location [facility] [address] [place] [address]
--- OUTSIDE RECORDS SUMMARY | 2023-10-17 00:56 | External Medical Summary ---
Author Name Unknown Address Unknown Organization L1E:[facility] [address] [place] [address] Laboratory Report Ordering Provider Test Date Status Christiane Fernandes 05/09/2023 06:52 Final Observation Date Value Abnormality Reference (Units ) Status White Blood Count 05/09/2023 06:55 6.6 Normal 4.1-10.2 (10 3/uL) Final RBC 05/09/2023 06:55 4.21 Normal 3.80-5.20 (10 6/uL) Final Hemoglobin 05/09/2023 06:55 12.2 Normal 11.5-15.5 (g/dL) Final HCT 05/09/2023 06:55 36.4 Normal 35-46 (%) Final MCV 05/09/2023 06:55 86.5 Normal 82.0-98.0 (fL) Final MCH 05/09/2023 06:55 29.0 Normal 27.0-34.0 (pg) Final MCHC 05/09/2023 06:55 33.5 Normal 31.0-36.0 (g/dL) Final Erythrocyte distribution width [Entitic volume] 05/09/2023 06:55 48.3 Normal 37-49 (fL) Final RDW 05/09/2023 06:55 15.2 Above high normal 11.8-14.8 (%) Final Platelets 05/09/2023 06:55 149 Below low normal 150-360 (10 3/uL) Final Mean Platelet Volume 05/09/2023 06:55 11.0 Normal 9.4-12.3 (fL) Final Segs 05/09/2023 06:55 68.2 Normal 42-75 (%) Final Lymphs, absolute 05/09/2023 06:55 19.8 Normal 14-42 (%) Final Monos 05/09/2023 06:55 10.6 Normal 4-13 (%) Final Eosinophils 05/09/2023 06:55 0.5 Normal 0-6 (%) Final Basos 05/09/2023 06:55 0.6 Normal 0-2 (%) Final Immature Granulocyte, Percent 05/09/2023 06:55 0.3 Normal 0.0-0.7 (%) Final NRBC% (Auto) 05/09/2023 06:55 0.0 Normal 0.0-0.2 (/100 WBC) Final Absolute Segs 05/09/2023 06:55 4.5 Normal 1.8-6.6 (10 3uL) Final Lymphocytes [#/volume] in Unspecified specimen by Automated count 05/09/2023 06:55 1.3 Normal 1.0-3.1 (10 3/uL) Final Monos, Abs 05/09/2023 06:55 0.7 Normal 0.0-1.0 (10 3uL) Final Eos, Abs 05/09/2023 06:55 0.0 Normal 0.0-0.5 (10 3uL) Final Basos, Abs 05/09/2023 06:55 0.0 Normal 0.0-0.1 (10 3/uL) Final Granulocytes [#/volume] in Blood by Automated count 05/09/2023 06:55 0.0 Normal 0.0-0.0 (10 3/uL) Final NRBC # (Auto) 05/09/2023 06:55 0.000 Normal 0.000-0.012 (10 3/uL) Final Performing Location [address] [address]
--- OUTSIDE RECORDS SUMMARY | 2023-10-17 00:56 | External Medical Summary ---
Author Name Unknown Address Unknown Organization : Laboratory Report Ordering Provider Test Date Status Arnoldo uNnezree 05/09/2023 07:52 Final Observation Date Value Abnormality Reference (Units ) Status Glucose, capillary POC (i-STAT) 05/09/2023 08:02 114 Above high normal 70-99 (MG/DL) Final Followed protocol Performing Location
--- OUTSIDE RECORDS SUMMARY | 2023-10-17 00:57 | External Medical Summary ---
Author Name Unknown Address Unknown Organization : Laboratory Report Ordering Provider Test Date Status Arnoldo Nunezree 05/08/2023 20:18 Final Observation Date Value Abnormality Reference (Units ) Status Glucose, capillary POC (i-STAT) 05/08/2023 20:21 275 Above high normal 70-99 (MG/DL) Final Performing Location
--- OUTSIDE RECORDS SUMMARY | 2023-10-17 00:57 | External Medical Summary ---
Author Name Unknown Address Unknown Organization L1E:[facility] [address] [place] [address] Laboratory Report Ordering Provider Test Date Status Jovan Strong 05/08/2023 20:35 Final Observation Date Value Abnormality Reference (Units ) Status Lactic Acid 05/08/2023 21:00 1.5 Normal 0.40-2.00 ( mmol/L) Final Performing Location [facility] [address] [place] [address]
--- OUTSIDE RECORDS SUMMARY | 2023-10-17 00:57 | External Medical Summary | Continuity of Care Document ---
Author Name Unknown Address [address] [place] [address] Phone Organization [facility] Address [address] [facility] [place] [address] Phone Support Name Relationship Address Phone Kandi Swanson Daughter [address] [place] [address] Moise Reed Primary Care Provider [address] [place] [address] Imer King Emergency Provider [address] [place] [address] Oleg Bernabe Admit Provider [address] [place] [address] Tae Aldana Emergency Provider [address] [place] [address] Enrique Sousa Admit Provider [address] [place] [address] Chief Complaint and Reason for Visit Chief Complaint Cellulitis,foot Diabetic Education L foot cellulitis, diabetic ulcer Reason for Visit Cellulitis of left f oot Fever Weakness Atrial fibrillation CKD (chronic kidney disease) Chronic anticoagulation Diabetes Diabetic foot ulcer [id number] GERD (gastroesophageal reflux disease) Hyperlipidemia Hypertension Hypothyroidism [...] PO Every Night May 07, 2020 9:59am [facility] er 2019 3:49pm Glimepiride Disconti nued 4 MG PO Every Morning May 17, 2020 10:43am [facility] 11:39a m administer with breakfast Lancets Disconti nued 0 .[facility] [place] 12:00am May 23, 2021 7:48am As directed twice a day Dx E11.9 Blood Sugar Diagnostic (Onetouch Ultra Blue Test Strip) strip Disconti nued 0 .R[facility]TE .[facility] 2019 12:00am May 23, 2021 7:48am As directed twice a day Dx E11.9 Metoprolol Tartrate (Lopressor) 25 mg tablet Disconti nued 25 MG PO Twice Daily 60 [facility] [place] 2019 11:58am January 22, 2021 9:46am Apixaban (Eliquis) 5 mg tablet Disconti nued 5 MG PO Twice Daily 60 [facility] [place] 2019 2:53pm Februa 2020 4:43pm Insulin Degludec (Tresiba Flextouch U-100) 100 unit/mL (3 mL) insulin pen Disconti nued 25 UNIT SUBCUT daily September 13, 2020 9:44am [facility] er 2019 10:06a m continue increasing by 2 units every 3 days until blood sugars are in the 130 range Clopidogrel Bisulfate (Clopidogrel) 75 mg tablet Disconti nued 75 MG PO 3 times per week September 13, 2020 10:02am March 21, 2022 10:35a m Insulin Degludec (Tresiba Flextouch U-100) 100 unit/mL (3 mL) insulin pen Disconti nued 25 UNIT SUBCUT daily [facility] r 2019 10:06am [facility] er 2019 1:41pm 38 units daily Insulin [...] .ROUTE .MEDSUPPLY 100 May 23, 2021 7:48am [facility] er 2020 10:44a m As directed twice a day Dx E11.9 Blood Sugar Diagnostic (Precision Q-I-D) strip Disconti nued 0 .ROUTE .MEDSUPPLY 100 May 23, 2021 7:48am May 08, 2023 4:28pm As directed twice a day Dx E11.9 Insulin Degludec (Tresiba Flextouch U-200) 200 unit/mL (3 mL) insulin pen Disconti nued 38 UNIT SUBCUT Every Night June 07, 2021 10:04am [facility] er 2020 7:22am Levothyroxine Sodium (Levothyroxin e) 75 mcg capsule Active 75 MCG PO daily June 18, 2021 12:04pm Gabapentin Disconti nued 800 MG PO .COMPLEX 60 July 01, 2021 1:17pm [facility] er 2020 10:54a m 800 mg [...] Lancets Disconti nued 0 .ROUTE .MEDSUPPLY 100 [facility] r 2020 10:44am [facility] er 2020 1:43pm As directed twice a day Dx E11.9 Gabapentin Disconti nued 800 MG PO .COMPLEX 180 [facility] 2020 10:49am [facility] er 2020 1:43pm 800 mg PO take one tablet at lunchtime and one tablet at bedtime; Gabapentin Disconti nued 800 MG PO .COMPLEX 180 [facility] 2020 1:43pm [facility] er 2020 9:46am 800 mg PO take one tablet at lunchtime and one tablet at bedtime; Lancets Disconti nued 0 .ROUTE .MEDSUPPLY 100 [facility] 2020 1:43pm [facility] er 2021 11:27a m As directed twice a day Dx E11.9 Gabapentin Disconti nued 800 MG PO .COMPLEX 180 [facility] 2020 9:45am March 21, 2022 10:17a m [...] 29, 2018 12:00am March 22, 2018 2:37pm [place]/Dha/E pa/Fish Oil (Fish Oil [place] Ec 1,200 Mg) 1 EACH Capsule.Dr Chrissie [...] 2022 12:00am June 05, 2022 12:13p m [place] Fatty Acids ([place]-3) 1,000 MG capsule Disconti nued 1000 MG [...] Disconti nued 50 MG PO Twice Daily [facility] 2021 1:00am May 08, 2023 4:29pm Lidocaine (Lidoderm Patch) 700 MG adhesive patch,medicat ed Disconti nued 700 MG TOPIC Daily 30 2021 1:00am May 08, 2023 4:28pm Prednisone Disconti nued 40 MG PO Daily 4 [facility]2021 1:00am April 16, 2023 12:07p m Lidocaine (Lidoderm Patch) 700 MG adhesive patch,medicat ed Disconti nued 1 PATCH TOPIC Daily 30 2021 1:00am April 16, 2023 12:06p m may wear up to 12 hours Prednisone Disconti nued 40 MG PO Daily 5 [facility]2021 1:00am April 16, 2023 12:07p m [...] UAL As Directed May 08, 2023 12:00am Krill/[place] /Dha/Epa/Lipi ds ([place] Krill Oil 500 Mg Sfgl) 1 EACH [...] Disconti nued 500 MG PO Q24H 10 [facility] [place] 2019 12:00am [facility] r 2019 10:01a m Tramadol Hcl Disconti nued 50 MG [facility] Q8H [facility] 12:[facility]am [facility] r 2019 12:02a m Doxycycline Hyclate Disconti nued 100 MG PO Twice Daily June 04, 2021 4:01pm [facility] er 2020 7:05am Azithromycin Disconti nued 0 [...] nued MG PO September 06, 2020 12:00am [facility] er 2019 9:43am Insulin Degludec (Tresiba [...] UNIT SUBCUT daily September 11, 2020 3:14pm [facility] 2019 9:44am continue increasing by [...] ua ry 2020 10:07a m Hydrocodone/A cetaminophen ([place] 5-325 Tablet) 5-325 mg tablet Disconti nued 1 TAB PO Twice Daily 60 r 2019 1:02am Docusate Sodium Disconti nued 100 MG PO Twice Daily November 19, 2020 1:00am February 28, 2021 11:13a m Hydrocodone/A cetaminophen ([place] 5-325 Tablet) 5-325 mg tablet Disconti nued [...] r 2020 1:00am May 08, 2023 4:25pm [place] Fatty Acids (Fish Oil Concentrate) 1,000 mg capsule Disconti nued 1000 MG PO Twice Daily 60 [facility] r 2020 1:00am May 03, 2022 11:24a m Immunizations Immunization Event Date Not Given Reason Dose Number Habilitative Interventionist Lot Number Vaccine Information Statement (VIS) Detail SARS-COV-2 (COVID-19) MODERNA July 07, 2021 [id number] Fluzone QUAD August 16, 2017 Fluzone QUAD August 17, 2018 Influenza, high-dose, Quadrivalent October 18, 2020 [id number] Influenza, high-dose, Quadrivalent October 04, 2021 [id number] Pneumococcal 13-Valent Conjugate Vaccine September 08, 2018 [...] April 15, 2023 5:54am 5.1 10^3/uL 4.1-10.2 [facility] [id number] [address] [facility] [place] [address] White Blood Count May 08, 2023 3:36pm 8.5 10^3/uL 4.1-10.2 [facility] [id number] [address] [facility] [place] [address] Red Blood Count April 15, 2023 5:54am 4.44 10^6/uL 3.80-5.20 [facility] [id number] [address] [facility] [place] [address] Red Blood Count May 08, 2023 3:36pm 5.03 10^6/uL 3.80-5.20 [facility] [id number] [address] [facility] [place] [address] Hemoglobin April 15, 2023 5:54am 12.5 g/dL 11.5-15.5 [facility] [id number] [address] [facility] [place] [address] Hemoglobin May 08, 2023 3:36pm 14.6 g/dL 11.5-15.5 [facility] [id number] [address] [facility] [place] [address] Hematocrit April 15, 2023 5:54am 38.6 % 35-46 [facility] [id number] [address] [facility] [place] [address] Hematocrit May 08, 2023 3:36pm 43.6 % 35-46 [facility] [id number] [address] [facility] [place] [address] Mean Corpuscular Volume April 15, 2023 5:54am 86.9 fL 82.0-98.0 [facility] [id number] [address] [place] [address] Mean Corpuscular Volume May 08, 2023 3:36pm 86.7 fL 82.0-98.0 [facility] [id number] [address] [place] [address] Mean Corpuscular Hemoglobin April 15, 2023 5:54am 28.2 pg 27.0-34.0 [facility] [id number] [address] [place] [address] Mean Corpuscular Hemoglobin May 08, 2023 3:36pm 29.0 pg 27.0-34.0 [facility] [id number] [address] [place] [address] Mean Corpuscular Hemoglobin Concent April 15, 2023 5:54am 32.4 g/dL 31.0-36.0 [facility] [id number] [address] [place] [address] Mean Corpuscular Hemoglobin Concent May 08, 2023 3:36pm 33.5 g/dL 31.0-36.0 [facility] [id number] [address] [place] [address] RDW Standard Deviation April 15, 2023 5:54am 46.8 fL 37-49 [facility] [id number] [address] [place] [address] RDW Standard Deviation May 08, 2023 3:36pm 47.7 fL 37-49 [facility] [id number] [address] [place] [address] RDW Coefficient of Variation April 15, 2023 5:54am 14.7 % 11.8-14.8 [facility] [id number] [address] [place] [address] RDW Coefficient of Variation May 08, 2023 3:36pm 15.0 % 11.8-14.8 [facility] [id number] [address] [place] [address] Platelet Count April 15, 2023 5:54am 191 10^3/uL 150-360 [facility] [id number] [address] [facility] [place] [address] Platelet Count May 08, 2023 3:36pm 185 10^3/uL 150-360 [facility] [id number] [address] [facility] [place] [address] Mean Platelet Volume April 15, 2023 5:54am 10.4 fL 9.4-12.3 [facility] [id number] [address] [facility] [place] [address] Mean Platelet Volume May 08, 2023 3:36pm 10.5 fL 9.4-12.3 [facility] [id number] [address] [facility] [place] [address] Neutrophils (%) (Auto) April 15, 2023 5:54am 49.5 % 42-75 [facility] [id number] [address] [facility] [place] [address] Neutrophils (%) (Auto) May 08, 2023 3:36pm 81.3 % 42-75 [facility] [id number] [address] [facility] [place] [address] Lymphocytes (%) (Auto) April 15, 2023 5:54am 33.1 % 14-42 [facility] [id number] [address] [facility] [place] [address] Lymphocytes (%) (Auto) May 08, 2023 3:36pm 11.4 % 14-42 [facility] [id number] [address] [facility] [place] [address] Monocytes (%) (Auto) April 15, 2023 5:54am 10.7 % 4-13 [facility] [id number] [address] [facility] [place] [address] Monocytes (%) (Auto) May 08, 2023 3:36pm 6.4 % 4-13 [facility] [id number] [address] [facility] [place] [address] Eosinophils (%) (Auto) April 15, 2023 5:54am 5.5 % 0-6 [facility] [id number] [address] [place] [address] Eosinophils (%) (Auto) May 08, 2023 3:36pm 0.0 % 0-6 [facility] [id number] [address] [place] [address] Basophils (%) (Auto) April 15, 2023 5:54am 1.0 % 0-2 [facility] [id number] [address] [facility] [place] [address] Basophils (%) (Auto) May 08, 2023 3:36pm 0.5 % 0-2 [facility] [id number] [address] [facility] [place] [address] Immature Granulocytes % April 15, 2023 5:54am 0.2 % 0.0-0.7 [facility] [id number] [address] [place] [address] Immature Granulocytes % May 08, 2023 3:36pm 0.4 % 0.0-0.7 [facility] [id number] [address] [facility] [place] [address] Neutrophils # (Auto) April 15, 2023 5:54am 2.5 10^3uL 1.8-6.6 [facility] [id number] [address] [place] [address] Neutrophils # (Auto) May 08, 2023 3:36pm 6.9 10^3uL 1.8-6.6 [facility] [id number] [address] [place] [address] Lymphocytes # (Auto) April 15, 2023 5:54am 1.7 10^3/uL 1.0-3.1 [facility] [id number] [address] [place] [address] Lymphocytes # (Auto) May 08, 2023 3:36pm 1.0 10^3/uL 1.0-3.1 [facility] [id number] [address] [place] [address] Monocytes # (Auto) April 15, 2023 5:54am 0.6 10^3uL 0.0-1.0 [facility] [id number] [address] [facility] [place] [address] Monocytes # (Auto) May 08, 2023 3:36pm 0.5 10^3uL 0.0-1.0 [facility] [id number] [address] [facility] [place] [address] Eosinophils # (Auto) April 15, 2023 5:54am 0.3 10^3uL 0.0-0.5 [facility] [id number] [address] [facility] [place] [address] Eosinophils # (Auto) May 08, 2023 3:36pm 0.0 10^3uL 0.0-0.5 [facility] [id number] [address] [facility] [place] [address] Basophils # (Auto) April 15, 2023 5:54am 0.1 10^3/uL 0.0-0.1 [facility] [id number] [address] [facility] [place] [address] Basophils # (Auto) May 08, 2023 3:36pm 0.0 10^3/uL 0.0-0.1 [facility] [id number] [address] [facility] [place] [address] Erythrocyte Sedimentatio n Rate April 15, 2023 5:54am 33 mm/hr 0-30 [facility] [id number] [address] [facility] [place] [address] Erythrocyte Sedimentatio n Rate May 08, 2023 3:36pm 19 mm/hr 0-30 [facility] [id number] [address] [facility] [place] [address] Prothrombin Time May 08, 2023 4:04pm 18.4 SEC 9.8-12.7 [place] [id number] 214 [facility] [place] [facility] [place] [address] INR Internationa l Normalized Ratio May 08, 2023 4:04pm 1.[id number] [place] [address] Activated Partial Thromboplast Time May 08, 2023 4:04pm 63.0 SEC 25-36 [facility] [id number] [address] [place] [address] Urine Color April 12, 2023 7:25pm Yellow Yellow [facility] [id number] [address] [place] [address] Urine Color May 08, 2023 4:44pm Yellow Yellow [facility] [id number] [address] [place] [address] Urine Clarity April 12, 2023 7:25pm Clear Clear [facility] [id number] [address] [place] [address] Urine Clarity May 08, 2023 4:44pm Clear Clear [facility] [id number] [address] [place] [address] Urine pH April 12, 2023 7:25pm 5.5 6.0-8.0 [facility] [id number] [address] [place] [address] Urine pH May 08, 2023 4:44pm 7.0 6.0-8.0 [facility] [id number] [address] [place] [address] Urine Specific [place] April 12, 2023 7:25pm 1.010 1.000-1.03 0 [facility] [id number] [address] [place] [address] Urine Specific [place] May 08, 2023 4:44pm 1.018 1.000-1.03 0 [facility] [id number] [address] [place] [address] Urine Protein April 12, 2023 7:25pm Negative Negative [facility] [id number] [address] [place] [address] Urine Protein May 08, 2023 4:44pm Trace Negative [facility] [id number] [address] [place] [address] Urine Glucose (UA) April 12, 2023 7:25pm Negative Negative [facility] [id number] [address] [place] [address] Urine Glucose (UA) May 08, 2023 4:44pm Negative Negative [facility] [id number] [address] [place] [address] Urine Ketones April 12, 2023 7:25pm Negative Negative [facility] [id number] [address] [place] [address] Urine Ketones May 08, 2023 4:44pm Negative Negative [facility] [id number] [address] [place] [address] Urine Occult Blood April 12, 2023 7:25pm Negative Negative [facility] [id number] [address] [place] [address] Urine Occult Blood May 08, 2023 4:44pm Negative Negative [facility] [id number] [address] [place] [address] Urine Nitrate April 12, 2023 7:25pm Negative Negative [facility] [id number] [address] [place] [address] Urine Nitrate May 08, 2023 4:44pm Negative Negative [facility] [id number] [address] [place] [address] Urine Bilirubin April 12, 2023 7:25pm Negative Negative [facility] [id number] [address] [place] [address] Urine Bilirubin May 08, 2023 4:44pm Negative Negative [facility] [id number] [address] [place] [address] Urine Urobilinogen April 12, 2023 7:25pm 0.2 0.2-1.0 [facility] [id number] [address] [place] [address] Urine Urobilinogen May 08, 2023 4:44pm 0.2 0.2-1.0 [facility] [id number] [address] [place] [address] Urine Leukocyte Esterase April 12, 2023 7:25pm Negative Negative [facility] [id number] [address] [place] [address] Urine Leukocyte Esterase May 08, 2023 4:44pm Negative Negative [facility] [id number] [address] [place] [address] Urine WBC May 08, 2023 4:44pm 0-2 /HPF 0-3 [facility] [id number] [address] [place] [address] Urine Culture Indicated April 12, 2023 7:25pm No Culture not indicated. [facility] [id number] [address] [place] [address] Urine Culture Indicated May 08, 2023 4:44pm No Culture not indicated. [facility] [id number] [address] [place] [address] Urine Bacteria May 08, 2023 4:44pm Few /HPF NONE SEEN [facility] [id number] [address] [place] [address] Sodium Level April 15, 2023 5:54am 138 mmol/L 136-145 [facility] [id number] [address] [place] [address] Sodium Level May 08, 2023 4:04pm 133 mmol/L 136-145 [facility] [id number] [address] [place] [address] Potassium Level April 15, 2023 5:54am 4.0 mmol/L 3.5-5.1 [facility] [id number] [address] [place] [address] Potassium Level May 08, 2023 4:04pm 4.1 mmol/L 3.5-5.1 [facility] [id number] [address] [place] [address] Chloride Level April 15, 2023 5:54am 108 mmol/L 98-107 [facility] [id number] [address] [place] [address] Chloride Level May 08, 2023 4:04pm 100 mmol/L 98-107 [facility] [id number] [address] [facility] [place] [address] Carbon Dioxide Level April 15, 2023 5:54am 26 mmol/L [facility] [id number] [address] [place] [address] Carbon Dioxide Level May 08, 2023 4:04pm 28 mmol/L [facility] [id number] [address] [place] [address] Anion Gap April 15, 2023 5:54am 4.0 MMOL/L 1.0-15.0 [facility] [id number] [address] [place] [address] Anion Gap May 08, 2023 4:04pm 5.0 MMOL/L 1.0-15.0 [facility] [id number] [address] [facility] [place] [address] Blood Urea Nitrogen April 15, 2023 5:54am 24 mg/dL 06-02 [facility] [id number] [address] [facility] [place] [address] Blood Urea Nitrogen May 08, 2023 4:04pm 22 mg/dL 06-02 [facility] [id number] [address] [facility] [place] [address] Creatinine April 15, 2023 5:54am 1.20 mg/dL 0.55-1.02 [facility] [id number] [address] [facility] [place] [address] Creatinine May 08, 2023 4:04pm 1.34 mg/dL 0.55-1.02 [facility] [id number] [address] [facility] [place] [address] Estimated GFR (MDRD) April 15, 2023 5:54am 43 UNITS= mL/min/1.73m squared Unable to flag low results Results less than 60 may warrant further investigationPa tients race is not known. If the patient is , multiply the calculated GFR result provided by 1.21. GFR Estimate should not be used to alter drug dosages. [facility] [id number] [address] [place] [address] Estimated GFR (MDRD) May 08, 2023 4:04pm 38 UNITS= mL/min/1.73m squared Unable to flag low results Results less than 60 may warrant further investigationPa austennts race is not known. If the patient is , multiply the calculated GFR result provided by 1.21. GFR Estimate should not be used to alter drug dosages. [facility] [id number] [address] [facility] [place] [address] BUN/Creatini ne Ratio April 15, 2023 5:54am 20.1 10.0-20.00 [facility] [id number] [address] [facility] [place] [address] BUN/Creatini ne Ratio May 08, 2023 4:04pm 16.4 10.0-20.00 [facility] [id number] [address] [facility] [place] [address] Glucose Level April 15, 2023 5:54am 171 mg/dL 70-99 [facility] [id number] [address] [facility] [place] [address] Glucose Level May 08, 2023 4:04pm 136 mg/dL 70-99 [facility] [id number] [address] [facility] [place] [address] Bedside Glucose April 16, 2023 11:21am 180 MG/DL 70-99 Followed protocol Point of Care [address] [facility] [place] [address] Bedside Glucose May 08, 2023 3:59pm 147 MG/DL 70-99 Followed protocol Point of Care [address] [facility] [place] [address] Calculated Osmolality April 15, 2023 5:54am 285 275-295 [facility] [id number] [address] [facility] [place] [address] Calculated Osmolality May 08, 2023 4:04pm 272 275-295 [facility] [id number] [address] [facility] [place] [address] Calcium Level April 15, 2023 5:54am 8.9 mg/dL 8.5-10.1 [facility] [id number] 214 [facility] [place] [address] Calcium Level May 08, 2023 4:04pm 9.1 mg/dL 8.5-10.1 [facility] [id number] 214 [place] [address] Troponin I High Sensitivity May 08, 2023 4:04pm 11.1 ng/L 0.00-49.9 | | FEMALE: | MALE: || Low Risk (Negative) | < 50 ng/L | < 80 ng/L | | Intermediate Risk | 50 - 110 ng/L | 80 - 110 ng/L | | High Risk (Critical)| >= 111 ng/L | >= 111 ng/L | | | [facility] [id number] [address] [facility] [place] [address] Magnesium Level May 08, 2023 4:04pm 1.5 mg/dL 1.8-2.4 [facility] [id number] [address] [place] [address] [place] [address] Aspartate Amino Transf (AST/SGOT) April 13, 2023 6:55am 52 U/L [facility] [id number] [address] [facility] [place] [address] Aspartate Amino Transf (AST/SGOT) May 08, 2023 4:04pm 60 U/L [facility] [id number] [address] [facility] [place] [address] Alanine Aminotransfe rase (ALT/SGPT) April 13, 2023 6:55am 42 U/L 13-56 [facility] [id number] [address] [place] [address] [place] [address] Alanine Aminotransfe rase (ALT/SGPT) May 08, 2023 4:04pm 58 U/L 13-56 [facility] [id number] [address] [facility] [place] [address] Alkaline Phosphatase April 13, 2023 6:55am 98 U/L 45-117 [facility] [id number] [address] [facility] [place] [address] Alkaline Phosphatase May 08, 2023 4:04pm 114 U/L 45-117 [facility] [id number] [address] [facility] [place] [address] Total Bilirubin April 13, 2023 6:55am 1.07 mg/dL 0.20-1.00 [facility] [id number] [address] [facility] [place] [address] Total Bilirubin May 08, 2023 4:04pm 1.33 mg/dL 0.20-1.00 [facility] [id number] [address] [facility] [place] [address] Total Protein April 13, 2023 6:55am 6.5 g/dL 6.40-8.20 [facility] [id number] [address] [facility] [place] [address] Total Protein May 08, 2023 4:04pm 8.2 g/dL 6.40-8.20 [facility] [id number] [address] [facility] [place] [address] Albumin April 13, 2023 6:55am 2.9 g/dL 3.4-5.0 [facility] [id number] [address] [facility] [place] [address] Albumin May 08, 2023 4:04pm 3.6 g/dL 3.4-5.0 [facility] [id number] [address] [facility] [place] [address] Globulin April 13, 2023 6:55am 3.6 Ratio 1.3-4.9 [facility] [id number] [address] [facility] [place] [address] Globulin May 08, 2023 4:04pm 4.6 Ratio 1.3-4.9 [facility] [id number] 214 [facility] [place] [address] Albumin/Glob ulin Ratio April 13, 2023 6:55am 0.8 Ratio 1.2-2.3 [facility] [id number] [address] [facility] [place] [address] Albumin/Glob ulin Ratio May 08, 2023 4:04pm 0.8 Ratio 1.2-2.3 [facility] [id number] [address] [facility] [place] [facility] [place] [address] Lactic Acid Level April 12, 2023 6:25pm 1.9 mmol/L 0.40-2.00 [facility] [id number] [address] [facility] [place] [facility] [place] [address] Lactic Acid Level May 08, 2023 4:04pm 2.6 mmol/L 0.40-2.00 Results checked & Critical results called to Josefa/ER on 05/08/23 at 1637 by CAROLINE. [facility] [id number] [address] [facility] [place] [facility] [place] [address] Lipase May 08, 2023 4:04pm 51 U/L 13-75 [facility] [id number] 214 [facility] [place] [address] Hemoglobin A1c April 13, 2023 6:55am 7.5 % 3.8-5.6 [facility] [id number] 214 [facility] [place] [address] Estimated Average Glucose April 13, 2023 6:55am 169 mg/dL 70-126 The estimated average glucose (eAG) is an approximation of the average glucose concentration in mg/dL over the last 90 days.The 2010 "Standards of Medical Care in Diabetes" of the [place] [employer] includes the following interpretations of Hemoglobin A1c results: >=6.5% Diagnostic of Diabetes 5.7-6.4% IFG/IGT ("Pre-Diabetes" ) [facility] [id number] 214 [facility] [place] [address] B-Type Natriuretic Peptide May 08, 2023 4:04pm 234 PG/ML 0-100 [facility] [id number] 214 [facility] [place] [address] Thyroid Stimulating Hormone (TSH) April 13, 2023 6:55am 1.260 uIU/mL 0.358-3.74 [facility] [id number] 214 [facility] [place] [address] C-Reactive Protein April 15, 2023 5:54am 3.22 mg/dL 0.00-0.30 [facility] [id number] 214 [facility] [place] [address] C-Reactive Protein May 08, 2023 4:04pm 6.53 mg/dL 0.00-0.30 [facility] [id number] 214 [facility] [place] [address] Procalcitoni n May 08, 2023 4:04pm 0.69 [...] risk of severe sepsis and/or septic shock. [facility] [id number] [address] [facility] [place] [address] Influenza Type A (Rapid) April 12, 2023 6:20pm Negative Negative [facility] [id number] 214 [facility] [place] [address] Influenza Type B (Rapid) April 12, 2023 6:20pm Negative Negative [facility] [id number] 214 [facility] [place] [address] SARS-CoV-2 (PCR) April 12, 2023 6:51pm Negative Negative Negative results do not preclude [id number] tion and should not be used as [...] and not for any viruses or pathogens. [facility] [id number] [address] [facility] [place] [address] SARS-CoV-2 (PCR) May 08, 2023 4:23pm Negative Negative Negative results do not preclude [id number] tion and should not be used as [...] and not for any viruses or pathogens. [facility] [id number] 214 [facility] [place] [address] Soft Tissue MRSA (PCR) April 13, 2023 11:03am Negative NEGATIVE [facility] [id number] 214 [facility] [place] [address] Soft Tissue S. aureus (PCR) April 13, 2023 11:03am Negative NEGATIVE XPert MRSA/SA Soft Skin & Tissue Assay is included as part of Wound Culture.Further ID and Sensitivities to follow. [facility] [id number] [address] [facility] [place] [address] SARS-CoV-2 Antigen (Rapid) April 12, 2023 6:20pm [...] an EUA for use by authorized laboratories. [facility] [id number] [address] [facility] [place] [address] SARS-CoV-2 Antigen (Rapid) May 08, 2023 4:04pm [...] an EUA for use by authorized laboratories. [facility] [id number] [address] [facility] [place] [address] Microbiology Results Procedure Source Result Collection Date/Time Result Date/Time Result Comment Performing Site Blood Culture Blood No Growth after 5 days April 16, 2023 12:44am April 21, 2023 12:50am [facility] [id number] [address] [facility] [place] [address] Gram Stain Drainage, Left Foot April 13, 2023 11:03am April 14, 2023 11:26am [facility] [id number] [address] [facility] [place] [address] Wound Culture Drainage, Left Foot Strep agalactiae - (Group B) April 13, 2023 11:03am April 15, 2023 10:43am [facility] [id number] [address] [facility] [place] [address] Diagnostic Imaging Reports Report Dictated Date/Time Dictated By Status Magnetic Resonance Imaging Report April 12, 2023 8:56p m Nay Rodriguez MD completed [address] [facility], [address] Diagnostic Imaging Signed Patient: Grazyna Dale : [...] Dictated By:Nay Rodriguez MD Electronically Signed By: Nya Rodriguez MD Signed Date/Time:04/12/232102 Mobile Sales Consultant: [email or web address] Dictated Date: 04/12/232055 Transcribed Date/Time:04/12/232055 CC: Moise Reed DO; Imer King DO ; Report Dictated Date/Time Dictated By Status Magnetic Resonance Imaging Report April 14, 2023 7:30a m Nay Rodriguez MD completed [address], [facility] Diagnostic Imaging Signed Patient: Grazyna Dale : [...] Signed By: Nay Rodriguez MD Signed Date/Time:04/14/23730 Mobile Sales Consultant: [email or web address] Dictated Date: 04/14/23729 Transcribed Date/Time:04/14/23729 CC: Moise Reed DO; Imer King DO ; Report Dictated Date/Time Dictated By Status Echocardiogram April 14, 2023 7:05am Pedro Paez DO completed [address], [facility] ECHOCARDIOGRAM REPORT Signed Patient: Grazyna Dale : 1940 Female DOS: 04/14/23 0705 Primary Care Physician: Moise Reed DO Ordering Physician: Gabriela Tellez PA-C Referring Physician: Location: Cardiology [facility] [address] [facility] [place] [address] Echocardiogram Report Name: Grazyna Dale Ordering Physician: [...] Signed By: Pedro Paez DO Signed Date/Time:04/14/231236 Mobile Sales Consultant: ALEXANDER Dictated Date: 04/14/23704 Transcribed Date/Time:04/14/231236 CC: Gabriela Tellez PA-C; Moise Reed DO ; Report Dictated Date/Time Dictated By Status Magnetic Resonance Imaging Report April 16, 2023 11:38 am Luis nielsen [address] [place] [address] Diagnostic Imaging Signed Patient: Grazyna Dale : [...] Signed By: Luis Strong Signed Date/Time:04/16/23 1144 Mobile Sales Consultant: [email or web address] Dictated Date: 04/16/23 1138 Transcribed Date/Time:04/16/23 1138 CC: Moise Reed DO; Tonya Brandt PA-C ; Report Dictated Date/Time Dictated By Status Magnetic Resonance Imaging Report May 08, 2023 4:42pm Maynor Le MD [address], [address] Diagnostic Imaging Signed Patient: Grazyna Dale : [...] Signed By: Maynor Le MD Signed Date/Time:05/08/231644 Mobile Sales Consultant: [email or web address] Dictated Date: 05/08/231641 Transcribed Date/Time:05/08/231641 CC: [...] 11:06pm Insurance Providers Guarantor Grazyna Dale Address [address] [place] [address] Contact Info. Home Phone: Payer Policy Id Coverage Id Subscriber's Name Subscriber Id Effective Date Expiration Date [employer] MCREP [id number] Grazyna Dale [id number] Johan Hardin MCREP [id number] Grazyna Dale [id number] Self Pay Self N/A Encounters Encounter Location(s) Arrival/Admit Date Discharge/Depart Date Provider(s) Discharged Inpatient -Acute Care April 12, 2023 10:06pm April 16, 2023 1:40pm Oleg Bernabe DO Registered Recurring -Diabetic Education April 28, 2023 9:25am Moise Reed DO Admitted Inpatient -Acute Care May 08, 2023 6:37pm Enrique Sousa MD Recent Diagnosis Onset Date Cellulitis of left foot Fever Weakness Atrial fibrillation CKD (chronic kidney disease) Chronic anticoagulation Diabetes Diabetic foot ulcer [id number] GERD (gastroesophageal reflux disease) Hyperlipidemia Hypertension Hypothyroidism [...] CKD (chronic kidney disease) chronic 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
--- OUTSIDE RECORDS SUMMARY | 2023-10-17 00:58 | External Medical Summary | Continuity of Care Document ---
Author Name SHERLY SAWYER Address [address] [place] [address] Phone [phone] Organization [facility] Address [address] [place] [address] Phone [phone] Care Team Providers Care Antenna Design Engineer Name Role Phone Moise Reed DO Care Team Information Sizing Machine Operator [phone] ISABELA HARVEY DO Care Team Information Rec eiver [phone] Moise Reed DO Primary Care Physician Problems [...] SIG Qnty Indications Order ing Provider Date [id number]/ML Suspension swish orally twice a day for 7 days 60ml B37.0 YAO Cervantes 04/24/2023 Ozempic (0.25 Or 0.5 MG/Dose)2mg/3ML Solution Pen-Inject 0.5 mg subcut every week 3ml [facility], DO 04/06/2023 Synvisc Mlm52hp/6ML Soln Prefill Syringe one syringe injected intra-articular in to right knee. dx m17.11 6ml Isabela Harvey, DO 03/13/2023 Pomnrffvvc961wa Tablets 1 by mouth three times a day 90tabs [facility], DO 12/15/2022 Snpmdswtf7fg Tablets 1 tab by mouth every day 30tabs [facility], DO 12/04/2022 Onetouch Delica Lancets Extra Fine 33GMisc use twice a day; dx: e11.9 200units Moise Reed, DO 10/20/2022 Meclizine ESY10lo Tablets 1 tab by mouth three times a day as needed 60tabs R42 [facility], DO 04/02/2022 Tresiba Jhfqssdno804Wptw/ML Solution Pen-Inject inject 24 units am and 32 units pm 9ml [facility], DO 04/02/2022 Onetouch UltraStrips test twice daily dx e11.9 100units Moise Reed, DO 03/18/2022 Levothyroxine Awnngh28dpj Tablets 1 tab by mouth every day 90tabs [facility], DO 12/23/[address] 1 cap by mouth every day 90tabs Moise Reed, DO 06/21/2021 Zhdhvpwuek921to Capsules 2 cap by mouth four times a day 28caps YAO Cervantes Calcium 600 1 tab by mouth every day Unknown Metoprolol Udcawdvi61mz Tablets 1 tab by mouth twice a day 180tabs Kyle Cervantes MD Hungry Horse-3 Krill Jtn845tw Capsules 2 caps by mouth every day Unknown Vitamin O744chz (1000 Ut) Capsules 1 cap by mouth every day 90caps Unknown Multivitamin 1 tab by mouth every day Unknown Vitamin B-186880xyr Tablets Sub 1 tab by mouth every day Unknown Probiotic 1 cap by mouth every day Unknown Nitroglycerin0.4mg Tablets Sub 1 tablet at first sign of attack; may repeat every 5 min up to 3 tabs, if no relief seek medical help. 25tabs Unknown Potassium Uxvgahmah193(99K) mg Tablets 1 tab by mouth every day Unknown Atorvastatin Rtzdowq74yi Tablets 1 tab by mouth every night 90tabs Kyle Cervantes MD Kjcfwbj6lf Tablets 1 tab by mouth twice a day 180tabs Kyle Cervantes MD Clopidogrel Johpdyjqf01ne Tablets 1 tab by mouth every day 30tabs Moise Reed DO History Medications Ythjmkgh354212Fumh Tablets 1 take 1 tab three time a day X B37.0 YAO Cervantes 04/24/2023 - 04/24/2023 Rzbjzisokjos042gr Tablets 2 tablets once by mouth for one day, then 1 tablet once by mouth for 4 days 6tabs B34.9 Moise Reed DO 12/19/2022 - 02/04/2023 Medications Administered in Office Medication SIG Qnty Indications Ordering Provider Date Injection Betamethasone Acetate & Sodium Phosphate 3 MG Of EachInjection Satish Oviedo 03/11/2023 Immunizations CPT Code Status Date Vaccine Lot # [id number] Given 10/04/2021 Influenza Virus Vaccine H igh Dose Quadrivalent 78939 Given 07/07/2021 Moderna (Covid- 19) vaccine, mRNA, LNP-S, PF, 100 mcg/ 0.5 mL 01605 Given 10/18/2020 Influenza Virus Vaccine H igh Dose Quadrivalent 45485 Given 09/08/2018 Prevnar 13 Pneu mococcal Conjugate Vac 13 Valent For [place] Use 26005 Given 08/17/2018 Influenza Virus Vaccine, Split Virus, Preservative Free Im 0.5ML 57738 Given 08/16/2017 Influenza Virus Vaccine, Split Virus, Preservative Free Im 0.5ML 35364 Given 10/03/2013 Pneumo 23 Pneumococcal Va ccine 2Yrs Or Older Vital Signs Date Vital Result Comment 04/24/2023 11:31am Height 64 inches 5'4" Weight 193.38 lb Weight 87.715 kg BMI (Body Mass Index) 33.2 kg/m2 BP Systolic 138 mmHg BP Diastolic 70 mmHg Body Temperature 97.0 F Heart Rate 80 /min Respiratory Rate 20 /min O2 % BldC Oximetry 93 % 03/11/2023 3:01pm Height 64 inches 5'4" Weight 179.00 lb Weight 81.194 kg BMI (Body Mass Index) 30.7 kg/m2 BP Systolic 179 mmHg BP Diastolic 70 mmHg Body Temperature 97.0 F Heart Rate 88 /min Respiratory Rate 18 /min O2 % BldC Oximetry 95 % Results Test Acquired Date Facility Test Result H/L Range N ote Basic Metabolic Panel 04/15/2023 [facility] [address] [place] [address] [phone] Sodium 138 mmol/L Normal 136-145 Potassium 4.0 mmol/L Normal 3.5-5.1 Chloride 108 mmol/L High 98-107 Carbon Dioxide 26 mmol/L Normal 21-32 [facility] Anion Gap 4.0 mmol/L Normal 1.0-15.0 Blood Urea Nitrogen 24 mg/dL High 7-18 Creatinine,Serum 1.20 mg/dL High 0.55-1.02 GFR 43 1 BUN/Creatinine Ratio 20.1 High 10.0-20.00 Glucose 171 mg/dL High 70-99 Osmolality,Calculated 285 Normal 275-295 Calcium 8.9 mg/dL Normal 8.5-10.1 CBC W/ Auto Diff 04/15/2023 [facility] [address] [place] [address] [phone] White Blood Count 5.1 10^3/uL Normal 4.1-10.2 [...] 10^3/uL Normal 0.000-0.012 Laboratory test finding 04/15/[address] [address] [phone] C-Reactive Protein 3.22 mg/dL High 0.00-0.30 2 Laboratory test finding 04/15/[address] [address] [phone] Sedimentation Rate, Automated 33 mm/hr High 0-30 CBC W/O Diff 04/14/[address] [address] [phone] White Blood Count 5.9 10^3/uL Normal 4.1-10.2 [...] 10^3/uL Normal 150-360 Basic Metabolic Panel 04/14/[address] [address] [phone] Sodium 137 mmol/L Normal 136-145 Potassium 4.1 mmol/L Normal 3.5-5.1 Chloride 106 mmol/L Normal 98-107 Carbon Dioxide 26 mmol/L Normal 21-32 [facility] Anion Gap 5.0 mmol/L Normal 1.0-15.0 Blood Urea Nitrogen 19 mg/dL High 7-18 Creatinine,Serum 1.22 mg/dL High 0.55-1.02 GFR 42 3 BUN/Creatinine Ratio 15.6 Normal 10.0-20.00 Glucose 138 mg/dL High 70-99 Osmolality,Calculated 279 Normal 275-295 Calcium 8.6 mg/dL Normal 8.5-10.1 Laboratory test finding 04/13/[address] [address] [phone] Thyroid Stimulating Hormone 1.260 uIU/mL Normal 0.358-3.74 Comprehensive Metabolic Panel 04/13/[address] [address] [phone] Sodium 134 mmol/L Low 136-145 Potassium 3.9 mmol/L Normal 3.5-5.1 Chloride 104 mmol/L Normal 98-107 Carbon Dioxide 24 mmol/L Normal 21-32 [facility] Anion Gap 6.0 mmol/L Normal 1.0-15.0 Blood Urea Nitrogen 19 mg/dL High 7-18 Creatinine,Serum 1.15 mg/dL High 0.55-1.02 GFR 45 4 BUN/Creatinine Ratio 16.6 Normal 10.0-20.00 Glucose 133 [...] 0.8 Ratio Low 1.2-2.3 Glyco Panel 04/13/[address] [address] [phone] Hemoglobin A1c 7.5 % High 3.8-5.6 Estimated Average Glucose 169 mg/dL High 70-126 5 CBC W/ Auto Diff 04/13/[address] [address] [phone] White Blood Count 7.0 10^3/uL Normal 4.1-10.2 [...] 10^3/uL Normal 0.000-0.012 Laboratory test finding 04/13/[address] [address] [phone] Gram Stain GSEPI^Epithelial <SEE NOTE> 6, 7 Wound Culture 04/13/[address] [place] [address] [phone] O:Straga Strep agalactiae <SEE NOTE> 8 Wound Culture Quantity: 9 Xpert MRSA/SA Soft Skin & Tiss 04/13/[address] [place] [address] [phone] MRSA, Soft Skin/Tissue NEGATIVE Negative Staph Aureus, Soft Skin/Tissue NEGATIVE Negat esthela 10 Laboratory test finding 04/12/[address] [place] [address] [phone] Sedimentation Rate, Automated 33 mm/hr High 0-30 C-Reactive Protein 4.85 mg/dL High 0.00-0.30 11 CBC W/ Auto Diff 01/28/2023 [facility] [...] 50.0-70.0 Lymph % 35.2 % Normal 20.0-40.0 Crisp % 6.9 % Normal 2.0-10.0 Eos % 2.7 % Normal 0.5-5.0 Baso % 1.4 % Normal 0.0-3.0 Ig % 0.2 % High 0.0-0.0 NRBC % 0.0 % Normal 0.0-0.0 Gran # 3.0 10e9/L Normal 1.8-7.5 Lymph # 2.0 10e9/L Normal 1.5-3.5 Crisp # 0.4 10e9/L Normal 0.0-0.7 Eos # 0.2 10e9/L Normal 0.0-0.7 Baso # 0.1 10e9/L Normal 0.0-0.2 Ig # 0.0 10e9/L Normal 0.0-1.0 NRBC # 0.0 10e9/L Normal 0.0-0.0 Comprehensive Metabolic Panel 01/28/2023 [facility] Glu 134 mg/dL High 65-110 BUN 20 mg/dL Normal 5-23 Crea 1.0 mg/dL Normal 0.4-1.5 12 GFR 53 mL/min Normal 13 Na 139 mmol/L Normal 135-145 K 4.5 [...] Normal 0-130 HDL 53 mg/dL Normal 35-60 14 Risk Ratio 2.55 Low 3.27-4.44 15 Glyco Panel 01/28/2023 [facility] Hgba1c 7.2 %HbA1c High 3.8-5.6 16 A1c Glucose Est 160 mg/dL Normal Laboratory test finding 12/19/2022 [facility] [address] [place] [address] [phone] Sars-CoV-2 Rna, Qual PCR see below 17 Laboratory test finding 12/19/2022 [facility] [address] [place] [address] [phone] Covid 19 Antigen W/ Reflex Presumptive Nega <SEE NOTE> Negative 18 Influenza A & B Quick 12/19/2022 [facility] [address] [place] [address] [phone] Influenza A Negative Negative Influenza B Negative Negative 1 UNITS= mL/min/1.73m squared Unable to flag low results Results less than 60 may warrant further investigation Patients race is not known. If the patient is , multiply the calculated GFR result provided by 1.21. GFR Estimate should not be used to alter drug dosages. 2 Diagnosis cellulitis 3 UNITS= mL/min/1.73m squared Unable to flag low results Results less than 60 may warrant further investigation Patients race is not known. If the patient is , multiply the calculated GFR result provided by 1.21. GFR Estimate should not be used to alter drug dosages. 4 UNITS= mL/min/1.73m squared Unable to flag low results Results less than 60 may warrant further investigation Patients race is not known. If the patient is , multiply the calculated GFR result provided by 1.21. GFR Estimate should not be used to alter drug dosages. 5 The estimated averag e glucose (eAG) is an approximation of the average glucose concentration in mg/dL over the last 90 days. The 2010 "Standards of Medical Care in Diabetes" of the [place] [employer] Association includes the following interpretations of Hemoglobin A1c results: >=6.5% Diagnostic of Diabetes 5.7-6.4% IFG/IGT ("Pre-Diabetes") 6 LEFT FOOT DRAINAGE 7 GSEPI^Epithelial Trang ls F^Few Epithelial Cells GSGPC^Gram Positive Cocci 1^1+ Gram Positive Cocci GSGPR^Gram Positive Rods F^Few Gram Positive Rods GSWBC^White Blood Cells F^Few WBC's 8 Strep agalactiae - ( Group B) 9 Moderate Growth Sensi Sensitivity Not Routinely Performed Heavy Growth Normal Skin Vanessa with Light Growth Presumptive Proteus 10 XPert MRSA/SA Soft S kin Tissue Assay is included as part of Wound Culture. Further ID and Sensitivities to follow. 11 Diagnosis cellulitis, foot 12 IDMS TRACEABLE 13 The MDRD equation no rmalizes or adjusts GFR to a typical body size (body surface area=1.73 m2). 14 HDL CHOLESTEROL RISK RANGES FOR CORONARY ARTERY DISEASE MALE: INCREASED RISK : LESS THAN 45 MG/DL AVERAGE RISK : 45 MG/DL DECREASED RISK : GREATER THAN 45 MG/DL FEMALE: INCREASED RISK : LESS THAN 55 MG/DL AVERAGE RISK : 55 MG/DL DECREASED RISK : GREATER THAN 55 MG/DL 15 CHOL/HDL RATIO RISK MALE FEMALE 1/2 AVERAGE RISK 3.43 3.27 AVERAGE RISK 4.97 4.44 2X AVERAGE RISK 9.5 7.05 3X AVERAGE RISK 23.9 11.04 16 HEMOGLOBIN A1C LEVEL S ARE RELATED TO MEAN BLOOD GLUCOSE DURING THE PRECEDING 2-3 MONTHS. 17 SARS COV 2 RNA(COVID 19), QL NAAT [...] Method: Nucleic Acid Amplification Test including reverse office equipment technician polymerase chain reaction (RT-PCR) and office equipment technician mediated amplification (TMA). The test method meets [...] providers and patients using the following websites: https://www.EntraTympanic.ResponseTap (formerly AdInsight)/home/Covid-19/HCP/ QuestIVD/fact-sheet.html https://www.EntraTympanic.ResponseTap (formerly AdInsight)/home/Covid-19/ Patients/QuestIVD/fact-sheet.html Due to the current public health emergency, [facility] is accepting samples from appropriate clinical sources [...] about COVID-19 can be found at the [facility] website: www.Ret[employer].ResponseTap (formerly AdInsight)/Covid19 For patients with a Detected or Inconclusive test result, please see CDC's " COVID-19 Treatments and Medications" page located at https://www.cdc.gov/ coronavirus/2019-ncov/your-health/tjwiiqkzeu-dfw-akjwtj -illness.html for information on COVID-19 therapeutics. For patients with a Not Detected test result, please see CDC's "Vaccines for COVID-19" page located at https://www.cdc.gov/coronavirus/2019-ncov/vaccines/ index.html for information on COVID-19 vaccines. Test Performed by [facility], [facility], [address] [place] [address] Torsten Mohamud M.D., Ph.D., Director of Laboratories , [facility] [id number] Presumptive Negative The sensitivity and specificity of [...] Reconciled W/Current Medications In Outpt MR Completed 04/02/202393172 Inject/Drain Art hrocentesis Major Joint/Bursa/Ganglion Cyst Completed 03/11/2023 J0702 Injection Betame thasone Acetate & Sodium Phosphate 3 MG Of Each Completed 03/11/2023 Inject/Drain Art hrocentesis Major Joint/Bursa/Ganglion Cyst Completed 03/11/2023 3078F Most Recent Diastolic BP <80 mm HG Completed 03/11/2023 3077F Most Recent Systolic BP >/=1 40mm HG Completed 03/11/2023 3008F Body Mass Index (BMI), Docum ented (pv) Completed 02/04/2023 3079F Most Recent Diastolic BP [...] Date Location Provider Dx Diagnosis Office Visit 04/24/2023 11:30a [facility] YAO Cervantes Z09 Encntr for f/u exam aft trtmt for cond oth than malig neoplm B37.0 Candidal stomatitis M25.562 Pain in left knee Z68.33 Body mass index [BMI ] 33.0-33.9, adult Office Visit 03/11/2023 3:00p [facility] Moise Reed DO I48.0 Paroxysmal atrial fibrillation L03.116 Cellulitis of left l ower limb I10 Essential (primary) hypertension M25.562 Pain in left knee E78.00 Pure hypercholestero lemia, unspecified E11.9 Type 2 diabetes shawna itus without complications 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 Z68.30 Body mass index [BMI ] 30.0-30.9, adult Office Visit 02/04/2023 3:30p [facility] Sherly Sawyer PA-C M25.562 Pain in left knee Office Visit 02/04/2023 2:40p [facility] Venkatesh Cervantes MD I25.10 Athscl heart disease of [place] coronary artery w/o ang pctrs I48.0 Paroxysmal atrial fi brillation I10 Essential (primary) hypertension E78.00 Pure hypercholestero lemia, unspecified R09.89 Oth symptoms and sig ns involving the circ and resp systems Z79.01 retirement (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 a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 Z68.30 Body mass index [BMI ] 30.0-30.9, adult Office Visit 12/19/2022 1:15p [facility] Barbie Paulino PA-C B34.9 Viral infection, unspecified Z20.822 Contact with and (peterson spected) exposure to Covid-19 Z68.30 Body mass index [BMI ] 30.0-30.9, adult Office Visit 12/04/2022 3:00p [facility] Moise Reed DO I12.9 Hypertensive chronic kidney disease w stg 1-4/unsp chr kdny N18.30 Chronic kidney disea se, stage 3 unspecified E11.628 Type 2 diabetes shawna itus with other skin complications L03.116 Cellulitis of left l ower limb Z68.1 Body mass index [BMI ] 19.9 or less, adult Assessments Date Code Description Provider 04/24/2023 Z09 Encntr for f/u e xam aft trtmt for cond oth than malig neoplm Renéeoralia Dawn Santos, COLLEGE AND CAREER COUNSELOR 04/24/2023 B37.0 Candidal stomatitis Riki Dawn Tom, COLLEGE AND CAREER COUNSELOR 04/24/2023 M25.562 Pain in left knee Riki Tucker rris, COLLEGE AND CAREER COUNSELOR 04/24/2023 Z68.33 Body mass index [BMI] 33.0-3 3.9, adult Riki Santos, COLLEGE AND CAREER COUNSELOR 04/02/2023 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, right knee Isabela Bakerhade, DO 04/02/2023 M25.561 Pain in right knee Isabela hernandezhade, DO 03/11/2023 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, right knee Isabela Espenshade, DO 03/11/2023 M25.561 Pain in right knee Isabela gormannshade, DO 03/11/2023 I48.0 Paroxysmal atrial fibrillati on Moise Reed, DO 03/11/2023 L03.116 Cellulitis of left lower [place] b Moise Reed, DO 03/11/2023 I10 Essential (primary) hyperten micaela Moise Reed, DO 03/11/2023 M25.562 Pain of knee region Moise Reed, DO 03/11/2023 E78.00 Pure hypercholesterolemia, u nspecified Moise Reed, DO 03/11/2023 E11.[address] jules, DO 03/11/2023 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 a 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 Moise Reed, DO 03/11/2023 Z68.30 Body mass index [BMI] 30.0-3 0.9, adult Moise Reed, DO 02/04/2023 M25.562 Pain of knee region Sherly Sawyer PA-C 02/04/2023 I25.10 Athscl heart dis ease of [place] coronary artery w/o ang pctrs Kyle Cervantes MD 02/04/2023 I48.0 Paroxysmal atrial fibrillati on Kyle Cervantes MD 02/04/2023 I10 Essential (primary) hyperten micaela Kyle Cervantes MD 02/04/2023 E78.00 Pure hypercholesterolemia, u nspecified Kyle Cervantes MD 02/04/2023 R09.89 Oth symptoms and signs involving the circ and resp systems Kyle Cervantes MD 02/04/2023 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 a 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 Kyle Cervantes MD 02/04/2023 Z68.30 Body mass index [...] disease, stag e 3 unspecified Moise Reed, 12/04/2022 E11.628 Type 2 diabetes mellitus with other skin complications Moise Reed, 12/04/2022 L03.116 Cellulitis of left lower tamayo b Moise Reed, 12/04/2022 Z68.1 Body mass index [BMI] 19.9 o r less, adult Moise Reed DO Plan of Treatment Future Appointment(s):* 07/28/2023 11:30 am - Moise Reed DO at [facility] * 05/11/2023 10:30 am - Danisha Moura PA-C at [facility] * 08/07/2023 2:00 pm - Kyle Cervantes MD at [facility] 04/24/2023 - YAO Cervantes* Z09 Encntr for f/u exam aft trtmt for cond oth than malig neoplm * B37.0 Candidal stomatitis* New Medication:* Nystatin 649450 Unit/ML - swish orally twice a day for 7 days * Nystatin 725269 Unit - 1 take 1 tab three time a day X * M25.562 Pain in left knee* Recommendations:* Pt's right knee is edematous, states she has scar tissue in the knee. request ortho referral to [facility]. Pt states her right foot was cleaned and dressed by home health, states it is improving. * Z68.33 Body mass index [BMI] 33.0-33.9, adult * All* Recommendations:* Pt had lab work done last month, A1c done in May Functional Status Description No Information Available Mental Status Description No Information Available Referrals Refer to Dr Reason for Referral Status Appt Dean e Diana Walker CRNP Pulmonary Referral Closed 04/01/2023 [address] [facility] [address] Isabela Harvey, Osteoarthritis o f Left knee Please call daughterKandi to set up appt [phone] Closed [address] [facility] [phone]
--- OUTSIDE RECORDS SUMMARY | 2023-10-17 00:58 | External Medical Summary ---
Author Name Unknown Address Unknown Organization L1E:[facility] [address] [place] [address] Laboratory Report Ordering Provider Test Date Status Jovan Strong 05/08/2023 16:04 Final Diagnosis
inflammation Observation Date Value Abnormality Reference (Units ) Status Sodium 05/08/2023 16:25 133 Below low normal 136-145 (mmol/L) Final Potassium [Moles/volume] in Specimen 05/08/2023 16:25 4.1 Normal 3.5-5.1 (mmol/L) Final Cl 05/08/2023 16:25 100 Normal 98-107 (mmol/L) Final CO2 05/08/2023 16:25 28 Normal 21-32 (mmol/L) Final Anion gap 05/08/2023 16:25 5.0 Normal 1.0-15.0 (MMOL/L) Final BUN 05/08/2023 16:25 22 Above high normal 7-18 (mg/dL) Final Creatinine 05/08/2023 16:25 1.34 Above high normal 0.55-1.02 (mg/dL) Final Glomerular filtration rate/1.73 sq M.predicted [Volume Rate/Area] in Serum, Plasma or Blood 05/08/2023 16:25 38 Final UNITS= mL/min/1.73m squared< br/> Unable to flag low results
Results less than 60 may warrant further investigation

Patients race is not known. If the patient is
Cameroonian, multiply the calculated GFR result provided by
1.21. GFR Estimate should not be used to alter drug dosages. Urea nitrogen/Creatinine [Mass Ratio] in Serum or Plasma 05/08/2023 16:25 16.4 Normal 10.0-20.00 Final Glucose 05/08/2023 16:25 136 Above high normal 70-99 (mg/dL) Final Osmolality of Serum or Plasma by calculation 05/08/2023 16:25 272 Below low normal 275-295 Final Calcium [Mass/volume] in Unspecified specimen 05/08/2023 16:25 9.1 Normal 8.5-10.1 (mg/dL) Final Aspartate Aminotrans(SGOT) 05/08/2023 16:25 60 Above high normal 15-37 (U/L) Final ALT (Alanine aminotransferase) 05/08/2023 16:25 58 Above high normal 13-56 (U/L) Final Alk Phos 05/08/2023 16:25 114 Normal 45-117 (U/L) Final Bilirubin,Total 05/08/2023 16:25 1.33 Above hi gh normal 0.20-1.00 (mg/dL) Final Total Protein 05/08/2023 16:25 8.2 Normal 6.40-8.20 (g/dL) Final Albumin 05/08/2023 16:25 3.6 Normal 3.4-5.0 (g/dL ) Final Globulin [Mass/volume] in Serum 05/08/2023 16:25 4.6 Normal 1.3-4.9 (Ratio) Final Albumin/Globulin [Mass Ratio] in Serum or Plasma 05/08/2023 16:25 0.8 Below low normal 1.2-2.3 (Ratio) Final Performing Location [facility] [address] [place] [address]
--- OUTSIDE RECORDS SUMMARY | 2023-10-17 00:58 | External Medical Summary ---
Author Name Unknown Address Unknown Organization L1E:[facility] [address] [place] [address] Laboratory Report Ordering Provider Test Date Status Jovan Strong 05/08/2023 16:04 Final Diagnosis
inflammation Observation Date Value Abnormality Reference (Units ) Status CRP, low-sensitivity 05/08/2023 16:25 6.53 Above high normal 0.00-0.30 (mg/dL) Final Performing Location [facility] [address] [place] [address]
--- OUTSIDE RECORDS SUMMARY | 2023-10-17 00:58 | External Medical Summary ---
Author Name Unknown Address Unknown Organization L1E:[facility] [address] [place] [address] Laboratory Report Ordering Provider Test Date Status Jovan Strong 05/08/2023 16:44 Final Observation Date Value Abnormality Reference (Units ) Status Color, Urine 05/08/2023 16:52 Yellow Yellow Final Clarity, Urine 05/08/2023 16:52 Clear Clear Final pH, Urine 05/08/2023 16:52 7.0 Normal 6.0-8.0 Final Specific gravity of Urine by Automated test strip 05/08/2023 17:04 1.018 Normal 1.000-1.030 Final Protein [Presence] in Urine 05/08/2023 17:03 Trace Abnormal Negative Final Glucose [Presence] in Urine 05/08/2023 16:52 Negative Negative Final Ketones [Mass/volume] in Urine by Automated test strip 05/08/2023 16:52 Negative Negative Final Blood,Urine 05/08/2023 16:52 Negative Negative Final Nitrate [Mass/volume] in Urine 05/08/2023 16:52 Negative Negative Final Bilirubin, Urine 05/08/2023 16:52 Negative Negative Final Urobilinogen [Presence] in Urine by Automated test strip 05/08/2023 16:52 0.2 0.2-1.0 Final Leukocyte esterase [Presence] in Urine by Automated test strip 05/08/2023 16:52 Negative Negative Final Leukocytes [Presence] in Urine sediment by Light microscopy 05/08/2023 17:04 0-2 0-3 (/HPF) Final Bacteria identified in Urine by Culture 05/08/2023 17:04 NO Final Culture not indicated. Bacteria, Urine 05/08/2023 17:04 FEW NONE SE EN (/HPF) Final Performing Location [facility] [address] [place] [address]
--- OUTSIDE RECORDS SUMMARY | 2023-10-17 00:58 | External Medical Summary ---
Author Name Unknown Address Unknown Organization L1E:[facility] [address] [place] [address] Laboratory Report Ordering Provider Test Date Status Jovan Strong 05/08/2023 16:04 Final Y Observation Date Value Abnormality Reference (Units ) Status Lactic Acid 05/08/2023 16:38 2.6 Above upper panic tamayo its 0.40-2.00 (mmol/L) Final Results checked Critical res ults called to Josefa/ARON on
05/08/23 at 1637 by PTAYLOR. Performing Location [facility] [address] [place] [address]
--- OUTSIDE RECORDS SUMMARY | 2023-10-17 00:58 | External Medical Summary ---
Author Name Unknown Address Unknown Organization L1E:[facility] [address] [place] [address] Laboratory Report Ordering Provider Test Date Status Jovan Strong 05/08/2023 16:04 Final Observation Date Value Abnormality Reference (Units ) Status Natriuretic peptide B [Mass/volume] in Serum or Plasma 05/08/2023 16:25 234 Above high normal 0-100 (PG/ML) Final Performing Location [facility] [address] [place] [address]
--- OUTSIDE RECORDS SUMMARY | 2023-10-17 00:58 | External Medical Summary ---
Author Name Unknown Address Unknown Organization L1E:[facility] [address] [place] [address] Laboratory Report Ordering Provider Test Date Status Jovan Strong 05/08/2023 16:04 Final Observation Date Value Abnormality Reference (Units ) Status O:STRFAE 05/11/2023 09:32 Enterococ faecalis - (Group D) Final Blood Culture 05/11/2023 09:32 Bottle Growth Abnormal Final Blood Culture 05/11/2023 09:32 Aerobic Anaerobic Bottle Growth Abnormal Final Anerobic Bottle Positive at 15hrs 13 mins
gram stain = gram positive cocci
Aerobic Bottle Positive at 15hr 23 mins
gram stain = gram positive cocci
gram stains called to Magda in ER 05/09/23 0948PR Performing Location [facility] [address] [place] [address] Ordering Provider Test Date Status Jovan Strong 05/08/2023 16:04 Final Observation Date Value Abnormality Reference (Units ) Status Ampicillin 05/11/2023 09:32 1 Susceptible Final Gentamicin 500 05/11/2023 09:32 <=500 Susceptible Final Linezolid 05/11/2023 09:32 <=1 Susceptible F inal Penicillin 05/11/2023 09:32 4 Susceptible Final Vancomycin 05/11/2023 09:32 2 Susceptible Final Performing Location [facility] [address] [place] [address] Ordering Provider Test Date Status Jovan Strong 05/08/2023 16:04 Final Enterococcus faecalis (vanco mycin-susceptible)*DETECTED*
called to Ava in ER 05/09/23 1135 pr

Culture ID and sensitivity to follow

This specimen was tested with the Nanosphere
Verigene test for the following organisms:
Staphylococcus aureus
Staphylococcus epidermidis
Staphylococcus species (coag-negative)
Staphylococcus lugdunensis
Streptococcus species
Streptococcus agalactiae (Group B)
Streptococcus pyogenes (Group A)
Streptococcus pneumoniae
Streptococcus anginosus Group
Enterococcus faecalis
Enterococcus faecium
Listeria species Observation Date Value Abnormality Reference (Units ) Status Performing Location [address] [address]
--- OUTSIDE RECORDS SUMMARY | 2023-10-17 00:58 | External Medical Summary ---
Author Name Unknown Address Unknown Organization L1E:[facility] [address] [place] [address] Laboratory Report Ordering Provider Test Date Status Jovan Strong 05/08/2023 15:36 Final Observation Date Value Abnormality Reference (Units ) Status White Blood Count 05/08/2023 16:03 8.5 Normal 4.1-10.2 (10 3/uL) Final RBC 05/08/2023 16:03 5.03 Normal 3.80-5.20 (10 6/uL) Final Hemoglobin 05/08/2023 16:03 14.6 Normal 11.5-15.5 (g/dL) Final HCT 05/08/2023 16:03 43.6 Normal 35-46 (%) Final MCV 05/08/2023 16:03 86.7 Normal 82.0-98.0 (fL) Final MCH 05/08/2023 16:03 29.0 Normal 27.0-34.0 (pg) Final MCHC 05/08/2023 16:03 33.5 Normal 31.0-36.0 (g/dL) Final Erythrocyte distribution width [Entitic volume] 05/08/2023 16:03 47.7 Normal 37-49 (fL) Final RDW 05/08/2023 16:03 15.0 Above high normal 11.8-14.8 (%) Final Platelets 05/08/2023 16:03 185 Normal 150-360 (10 3/uL) Final Mean Platelet Volume 05/08/2023 16:03 10.5 Normal 9.4-12.3 (fL) Final Segs 05/08/2023 16:03 81.3 Above high normal 42-75 (%) Final Lymphs, absolute 05/08/2023 16:03 11.4 Below low normal 14-42 (%) Final Monos 05/08/2023 16:03 6.4 Normal 4-13 (%) Final Eosinophils 05/08/2023 16:03 0.0 Normal 0-6 (%) Final Basos 05/08/2023 16:03 0.5 Normal 0-2 (%) Final Immature Granulocyte, Percent 05/08/2023 16:03 0.4 Normal 0.0-0.7 (%) Final NRBC% (Auto) 05/08/2023 16:03 0.0 Normal 0.0-0.2 (/100 WBC) Final Absolute Segs 05/08/2023 16:03 6.9 Above high normal 1.8-6.6 (10 3uL) Final Lymphocytes [#/volume] in Unspecified specimen by Automated count 05/08/2023 16:03 1.0 Normal 1.0-3.1 (10 3/uL) Final Monos, Abs 05/08/2023 16:03 0.5 Normal 0.0-1.0 (10 3uL) Final Eos, Abs 05/08/2023 16:03 0.0 Normal 0.0-0.5 (10 3uL) Final Basos, Abs 05/08/2023 16:03 0.0 Normal 0.0-0.1 (10 3/uL) Final Granulocytes [#/volume] in Blood by Automated count 05/08/2023 16:03 0.0 Normal 0.0-0.0 (10 3/uL) Final NRBC # (Auto) 05/08/2023 16:03 0.000 Normal 0.000-0.012 (10 3/uL) Final Performing Location [address] [address]
--- OUTSIDE RECORDS SUMMARY | 2023-10-17 00:58 | External Medical Summary ---
Author Name Unknown Address Unknown Organization L1E:[facility] [address] [place] [address] Laboratory Report Ordering Provider Test Date Status Jovan Strong 05/08/2023 15:36 Final Observation Date Value Abnormality Reference (Units ) Status Sedimentation Rate, Automated 05/08/2023 16:19 19 Normal 0-30 (mm/hr) Final Performing Location [facility] [address] [place] [address]
--- OUTSIDE RECORDS SUMMARY | 2023-10-17 00:58 | External Medical Summary ---
Author Name Unknown Address Unknown Organization L1E:[facility] [address] [place] [address] Laboratory Report Ordering Provider Test Date Status Jovan Strong 05/08/2023 16:23 Final Observation Date Value Abnormality Reference (Units ) Status SARS-CoV-2, PCR (in-house) 05/08/2023 17:31 Negative Negative Final Negative results do not prec lude [id number] and
should not be used as the sole basis for treatment or other
patient management decisions.

Results from the molecular SARS-CoV-2 test should be
correlated with the clinical history, epidemiological data,
and other data available to the clinician evaluating the
patient.

This test has not been FDA cleared or approved.

This test has been authorized by the FDA under an EUA for
use by authorized laboratories.

This test has been authorized only for the simultaneous
qualitative detection and differentiation of nucleic acids
from SARS-CoV-2 and not for any viruses or pathogens. Performing Location [address] [address]
--- OUTSIDE RECORDS SUMMARY | 2023-10-17 00:58 | External Medical Summary ---
Author Name Unknown Address Unknown Organization L1E:[facility] [address] [place] [address] Laboratory Report Ordering Provider Test Date Status Jovan Strong 05/08/2023 16:04 Final Reason For Exam ([id number]) P ossible Sepsis Observation Date Value Abnormality Reference (Units ) Status Procalcitonin 05/08/2023 16:34 0.69 Above high normal < 0.10 (ng/mL) Final
Procalcitonin levels sh ow an increase within 2-6 hours and
peak at 6-12 hours of infection. Procalcitonin has a half
life of 25-30 hours once controlled by the immune system.
This assay is only intended to aid in the risk assessment of
a critically ill patient.

Concentrations under 0.5 ng/mL are interpreted as a low risk
of severe sepsis and/or septic shock.

Concentrations between 0.5 and 2.0 ng/mL should be
interpreted with consideration of the patient's history.

Concentrations >2.0 ng/mL are interpreted as high risk of
severe sepsis and/or septic shock. Performing Location [facility] [address] [place] [address]
--- OUTSIDE RECORDS SUMMARY | 2023-10-17 00:58 | External Medical Summary ---
Author Name Unknown Address Unknown Organization L1E:[facility] [address] [place] [address] Laboratory Report Ordering Provider Test Date Status Christiane Fernandes 05/08/2023 17:57 Final FOOT/LEFT Observation Date Value Abnormality Reference (Units ) Status MRSA, Soft Skin/Tissue 05/08/2023 19:32 NEGATIVE NEGATIVE Final STAPH AUREUS, SOFT SKIN/TISSUE 05/08/2023 19:32 NEGATIVE NEGATIVE Final

XPert MRSA/SA Soft Skin Tissue Assay is included as part
of Wound Culture.

Further ID and Sensitivities to follow. Performing Location [facility] [address] [place] [address]
--- OUTSIDE RECORDS SUMMARY | 2023-10-17 00:58 | External Medical Summary ---
Author Name Unknown Address Unknown Organization L1E:[facility] [address] [place] [address] Laboratory Report Ordering Provider Test Date Status Jovan Strong 05/08/2023 16:04 Final Observation Date Value Abnormality Reference (Units ) Status aPTT in Blood by Coagulation assay 05/08/2023 16:11 63.0 Above high normal 25-36 (SEC) Final Performing Location [facility] [address] [place] [address]
--- OUTSIDE RECORDS SUMMARY | 2023-10-17 00:58 | External Medical Summary ---
Author Name Unknown Address Unknown Organization L1E:[facility] [address] [place] [address] Laboratory Report Ordering Provider Test Date Status Jovan Strong 05/08/2023 16:04 Final To Be Admitted Y Observation Date Value Abnormality Reference (Units) Status COVID 19 Antigen W/ Reflex 05/08/2023 16:23 Presumptive Negative Negative Final The sensitivity and specific ity of SARS-COV 2 Antigen
Reagent Systems are [...] an EUA for use by
authorized laboratories. Performing Location [facility] [address] [place] [address]
--- OUTSIDE RECORDS SUMMARY | 2023-10-17 00:58 | External Medical Summary ---
Author Name Unknown Address Unknown Organization L1E:[facility] [address] [place] [address] Laboratory Report Ordering Provider Test Date Status Jovan Strong 05/08/2023 16:04 Final Diagnosis
inflammation Observation Date Value Abnormality Reference (Units ) Status Troponin I 05/08/2023 16:25 11.1 Normal 0.00-49.9 (n g/L) Final
FEMALE: MALE:
Low Risk (Negative) < 50 ng/L < 80 ng/L
Intermediate Risk 50 - 110 ng/L 80 - 110 ng/L
High Risk (Critical) >= 111 ng/L >= 111 ng/L
Performing Location [facility] [address] [place] [address]
--- OUTSIDE RECORDS SUMMARY | 2023-10-17 00:58 | External Medical Summary ---
Author Name Unknown Address Unknown Organization L1E:[facility] [address] [place] [address] Laboratory Report Ordering Provider Test Date Status Jovan Strong 05/08/2023 16:04 Final Diagnosis
inflammation Observation Date Value Abnormality Reference (Units ) Status Magnesium [Moles/volume] in Unspecified specimen 05/08/2023 16:25 1.5 Below low normal 1.8-2.4 (mg/dL) Final Performing Location [facility] [address] [place] [address]
--- OUTSIDE RECORDS SUMMARY | 2023-10-17 00:58 | External Medical Summary ---
Author Name Unknown Address Unknown Organization L1E:[facility] [address] [place] [address] Laboratory Report Ordering Provider Test Date Status Jovan Strong 05/08/2023 16:04 Final Observation Date Value Abnormality Reference (Units ) Status Prothrombin time (PT) in Blood by Coagulation assay 05/08/2023 16:11 18.4 Above high normal 9.8-12.7 (SEC) Final INR 05/08/2023 16:11 1.64 Final Performing Location [facility] [address] [place] [address]
--- OUTSIDE RECORDS SUMMARY | 2023-10-17 00:58 | External Medical Summary ---
Author Name Unknown Address Unknown Organization : Laboratory Report Ordering Provider Test Date Status Jovan Strong 05/08/2023 15:59 Final Observation Date Value Abnormality Reference (Units ) Status Glucose, capillary POC (i-STAT) 05/08/2023 16:04 147 Above high normal 70-99 (MG/DL) Final Followed protocol Performing Location
--- OUTSIDE RECORDS SUMMARY | 2023-10-17 00:58 | External Medical Summary ---
Author Name Unknown Address Unknown Organization L1E:[facility] [address] [place] [address] Laboratory Report Ordering Provider Test Date Status Christiane Fernandes 05/08/2023 17:57 Final Observation Date Value Abnormality Reference (Units ) Status Gram Stain 05/09/2023 11:58 Gram Positive Cocci Final Gram Stain 05/09/2023 11:58 1+ Gram Positiv e Cocci Final Gram Stain 05/09/2023 11:58 White Blood Cells Final Gram Stain 05/09/2023 11:58 No WBC's Seen Final Performing Location [address] [address] Ordering Provider Test Date Status Christiane Fernandes 05/08/2023 17:57 Final Observation Date Value Abnormality Reference (Units ) Status O:STRFAE 05/10/2023 08:00 Enterococ faecalis - (Group D) Final Wound Culture 05/10/2023 08:00 Quantity: Final Wound Culture 05/10/2023 08:00 Heavy Growth Final Performing Location [facility] [address] [place] [address] Ordering Provider Test Date Status Christiane Fernandes 05/08/2023 17:57 Final Observation Date Value Abnormality Reference (Units ) Status Ampicillin 05/10/2023 08:00 2 Susceptible Final Gentamicin 500 05/10/2023 08:00 <=500 Susceptible Final Linezolid 05/10/2023 08:00 <=1 Susceptible F inal Penicillin 05/10/2023 08:00 4 Susceptible Final Vancomycin 05/10/2023 08:00 2 Susceptible Final Performing Location [facility] [address] [place] [address]
--- OUTSIDE RECORDS SUMMARY | 2023-10-17 00:59 | External Medical Summary | Continuity of Care Document ---
Author Name ROBERT RAPP PA-C Address [address] [place] [address] Phone [phone] Organization [facility] Address [address] [place] [address] Phone [phone] Care Team Providers Care Oracle Applications Developer Name Role Phone Moise Reed DO Care Team Information Associate Team Physician [phone] ISABELA HARVEY DO Care Team Information Rec eiver [phone] Moise Reed DO Primary Care Physician Problems [...] SIG Qnty Indications Order ing Provider Date [id number]/ML Suspension swish orally twice a day for 7 days 60ml B37.0 YAO Cervantes 04/24/2023 Ozempic (0.25 Or 0.5 MG/Dose)2mg/3ML Solution Pen-Inject 0.5 mg subcut every week 3ml [facility], DO 04/06/2023 Synvisc Zsm65dy/6ML Soln Prefill Syringe one syringe injected intra-articular in to right knee. dx m17.11 6ml Isabela Harvey, DO 03/13/2023 Tqasfodxur172bk Tablets 1 by mouth three times a day 90tabs [facility], DO 12/15/2022 Hqoqylhmv8xy Tablets 1 tab by mouth every day 30tabs [facility], DO 12/04/2022 Onetouch Delica Lancets Extra Fine 33GMisc use twice a day; dx: e11.9 200units Moise Reed, DO 10/20/2022 Meclizine GRZ85mo Tablets 1 tab by mouth three times a day as needed 60tabs R42 [facility], DO 04/02/2022 Tresiba Rhprtcvum305Mmyq/ML Solution Pen-Inject inject 24 units am and 32 units pm 9ml [facility], DO 04/02/2022 Onetouch UltraStrips test twice daily dx e11.9 100units Moise Reed, DO 03/18/2022 Levothyroxine Awivuc88hmp Tablets 1 tab by mouth every day 90tabs Moise Reed, DO 12/23/[address] 1 cap by mouth every day 90tabs Moise Reed, DO 06/21/2021 Gmjngbfwfc229fh Capsules 2 cap by mouth four times a day 28caps YAO Cervantes Calcium 600 1 tab by mouth every day Unknown Metoprolol Nhevkftd27zc Tablets 1 tab by mouth twice a day 180tabs Kyle Cervantes MD [place]-3 Krill Tny379kn Capsules 2 caps by mouth every day Unknown Vitamin Y500rrm (1000 Ut) Capsules 1 cap by mouth every day 90caps Unknown Multivitamin 1 tab by mouth every day Unknown Vitamin B-317405qox Tablets Sub 1 tab by mouth every day Unknown Probiotic 1 cap by mouth every day Unknown Nitroglycerin0.4mg Tablets Sub 1 tablet at first sign of attack; may repeat every 5 min up to 3 tabs, if no relief seek medical help. 25tabs Unknown Potassium Ocehublnb670(99K) mg Tablets 1 tab by mouth every day Unknown Atorvastatin Cqovyhf11cz Tablets 1 tab by mouth every night 90tabs Kyle Cervantes MD Kwkmuca4ay Tablets 1 tab by mouth twice a day 180tabs Kyle Cervantes MD Clopidogrel Xicubxvuk83ts Tablets 1 tab by mouth every day 30tabs Moise Reed DO History Medications Fyhtbdzr840276Ugdy Tablets 1 take 1 tab three time a day X B37.0 YAO Cervantes 04/24/2023 - 04/24/2023 Gojeptjuogab644wx Tablets 2 tablets once by mouth for one day, then 1 tablet once by mouth for 4 days 6tabs B34.9 Moise Reed DO 12/19/2022 - 02/04/2023 Medications Administered in Office Medication SIG Qnty Indications Ordering Provider Date Injection Betamethasone Acetate & Sodium Phosphate 3 MG Of EachInjection Satish Oviedo 03/11/2023 Immunizations CPT Code Status Date Vaccine Lot # [id number] Given 10/04/2021 Influenza Virus Vaccine H igh Dose Quadrivalent 05826 Given 07/07/2021 Moderna (Covid- 19) vaccine, mRNA, LNP-S, PF, 100 mcg/ 0.5 mL 98537 Given 10/18/2020 Influenza Virus Vaccine H igh Dose Quadrivalent 31335 Given 09/08/2018 Prevnar 13 Pneu mococcal Conjugate Vac 13 Valent For [place] Use 69664 Given 08/17/2018 Influenza Virus Vaccine, Split Virus, Preservative Free Im 0.5ML 39952 Given 08/16/2017 Influenza Virus Vaccine, Split Virus, Preservative Free Im 0.5ML 11692 Given 10/03/2013 Pneumo 23 Pneumococcal Va ccine [...] Range N ote Basic Metabolic Panel 04/15/[address] [address] [phone] Sodium 138 mmol/L Normal 136-145 Potassium 4.0 mmol/L Normal 3.5-5.1 Chloride 108 mmol/L High 98-107 Carbon Dioxide 26 mmol/L Normal 21-32 [facility] Anion Gap 4.0 mmol/L Normal 1.0-15.0 Blood Urea Nitrogen 24 mg/dL High 7-18 Creatinine,Serum 1.20 mg/dL High 0.55-1.02 GFR 43 1 BUN/Creatinine Ratio 20.1 High 10.0-20.00 Glucose 171 mg/dL High 70-99 Osmolality,Calculated 285 Normal 275-295 Calcium 8.9 mg/dL Normal 8.5-10.1 CBC W/ Auto Diff 04/15/2023 [facility] [address] [place] [address] [phone] White Blood Count 5.1 10^3/uL Normal 4.1-10.2 [...] 10^3/uL Normal 0.000-0.012 Laboratory test finding 04/15/[address] [address] [phone] C-Reactive Protein 3.22 mg/dL High 0.00-0.30 2 Laboratory test finding 04/15/[address] [address] [phone] Sedimentation Rate, Automated 33 mm/hr High 0-30 CBC W/O Diff 04/14/[address] [address] [phone] White Blood Count 5.9 10^3/uL Normal 4.1-10.2 [...] 10^3/uL Normal 150-360 Basic Metabolic Panel 04/14/[address] [address] [phone] Sodium 137 mmol/L Normal 136-145 Potassium 4.1 [...] mg/dL Normal 8.5-10.1 Laboratory test finding 04/13/[address] [address] [phone] Thyroid Stimulating Hormone 1.260 uIU/mL Normal 0.358-3.74 Comprehensive Metabolic Panel 04/13/[address] [address] [phone] Sodium 134 mmol/L Low 136-145 Potassium 3.9 [...] 0.8 Ratio Low 1.2-2.3 Glyco Panel 04/13/[address] [address] [phone] Hemoglobin A1c 7.5 % High 3.8-5.6 Estimated Average Glucose 169 mg/dL High 70-126 5 CBC W/ Auto Diff 04/13/[address] [address] [phone] White Blood Count 7.0 10^3/uL Normal 4.1-10.2 [...] 10^3/uL Normal 0.000-0.012 Laboratory test finding 04/13/[address] [address] [phone] Gram Stain GSEPI^Epithelial <SEE NOTE> 6, 7 Wound Culture 04/13/[address] [address] [phone] O:Straga Strep agalactiae <SEE NOTE> 8 Wound Culture Quantity: 9 Xpert MRSA/SA Soft Skin & Tiss 04/13/[address] [address] [phone] MRSA, Soft Skin/Tissue NEGATIVE Negative Staph Aureus, Soft Skin/Tissue NEGATIVE Negat esthela 10 Laboratory test finding 04/12/[address] [address] [phone] Sedimentation Rate, Automated 33 mm/hr High 0-30 [...] 50.0-70.0 Lymph % 35.2 % Normal 20.0-40.0 [place] % 6.9 % Normal 2.0-10.0 Eos % 2.7 % Normal 0.5-5.0 Baso % 1.4 % Normal 0.0-3.0 Ig % 0.2 % High 0.0-0.0 NRBC % 0.0 % Normal 0.0-0.0 Gran # 3.0 10e9/L Normal 1.8-7.5 Lymph # 2.0 10e9/L Normal 1.5-3.5 [place] # 0.4 10e9/L Normal 0.0-0.7 Eos # [...] 160 mg/dL Normal Laboratory test finding 12/19/2022 [facility] [address] [place] [address] [phone] Sars-CoV-2 Rna, Qual PCR see below 17 Laboratory test finding 12/19/2022 [facility] [address] [place] [address] [phone] Covid 19 Antigen W/ Reflex Presumptive Nega <SEE NOTE> Negative 18 Influenza A & B Quick 12/19/2022 [facility] [address] [place] [address] [phone] Influenza A Negative Negative Influenza B Negative [...] of Medical Care in Diabetes" of the [place] [employer] includes the following interpretations of [...] Method: Nucleic Acid Amplification Test including reverse licensing coordinator polymerase chain reaction (RT-PCR) and licensing coordinator mediated amplification (TMA). The test method meets [...] providers and patients using the following websites: https://www.[employer].EcoDirect/home/Covid-19/HCP/ [employer]/fact-sheet.html https://www.[employer].EcoDirect/home/Covid-19/ Patients/[employer]/fact-sheet.html Due to the current public health emergency, [employer] is accepting samples from appropriate clinical sources [...] about COVID-19 can be found at the [employer] website: www.[employer].EcoDirect/Covid19 For patients with a Detected or Inconclusive test result, please see CDC's " COVID-19 Treatments and Medications" page located at https://www.cdc.gov/ coronavirus/2019-ncov/your-health/hfvxbtoaoq-qby-imntkg -illness.html for information on COVID-19 therapeutics. For patients with a Not Detected test result, please see CDC's "Vaccines for COVID-19" page located at https://www.cdc.gov/coronavirus/2019-ncov/vaccines/ index.html for information on COVID-19 vaccines. Test Performed by [facility], [employer] [facility], [address] [place] [address] Torsten Mohamud M.D., Ph.D., Director of Laboratories , [place] [id number] 18 Presumptive Negative The sensitivity and specificity [...] Reconciled W/Current Medications In Outpt MR Completed 04/02/202300918 Inject/Drain Art hrocentesis Major Joint/Bursa/Ganglion Cyst Completed 03/11/2023 J0702 Injection Betame thasone Acetate & Sodium Phosphate 3 MG Of Each Completed 03/11/202369258 Inject/Drain Art hrocentesis Major Joint/Bursa/Ganglion Cyst Completed [...] Provider Dx Diagnosis Office Visit 04/24/2023 11:30a [facility] YAO Cervantes Z09 Encntr for f/u exam aft trtmt for cond oth than malig neoplm B37.0 Candidal stomatitis M25.562 Pain in left knee Z68.33 Body mass index [BMI ] 33.0-33.9, adult Office Visit 03/11/2023 3:00p [facility] Moise Reed DO I48.0 Paroxysmal atrial fibrillation L03.116 Cellulitis of left l ower limb I10 Essential (primary) hypertension M25.562 Pain in left knee E78.00 Pure hypercholestero lemia, unspecified E11.9 Type 2 diabetes shawna itus without complications Z79.01 emt intermediate (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 a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 Z68.30 Body mass index [BMI ] 30.0-30.9, adult Office Visit 02/04/2023 3:30p [facility] Sherly Sawyer PA-C M25.562 Pain in left knee Office Visit 02/04/2023 2:40p [facility] Venkatesh Cervantes MD I25.10 Athscl heart disease of [place] coronary artery w/o ang pctrs I48.0 Paroxysmal atrial fi brillation I10 Essential (primary) hypertension E78.00 Pure hypercholestero lemia, unspecified R09.89 Oth symptoms and sig ns involving the circ and resp systems Z79.01 emt intermediate (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 a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 Z68.30 Body mass index [BMI ] 30.0-30.9, adult Office Visit 12/19/2022 1:15p [facility] Barbie Paulino PA-C B34.9 Viral infection, unspecified Z20.822 Contact with and (peterson spected) exposure to Covid-19 Z68.30 Body mass index [BMI ] 30.0-30.9, adult Office Visit 12/04/2022 3:00p [facility] Moise Reed DO I12.9 Hypertensive chronic kidney [...] for cond oth than malig neoplm Riki Dawn Santos, PHOTOLITHOGRAPHER 04/24/2023 B37.0 Candidal stomatitis Riki Dawn Tom, PHOTOLITHOGRAPHER 04/24/2023 M25.562 Pain in left knee Riki Tucker rris, PHOTOLITHOGRAPHER 04/24/2023 Z68.33 Body mass index [BMI] 33.0-3 3.9, adult Riki Santos, PHOTOLITHOGRAPHER 04/02/2023 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, right knee Isabela Bakerhade, DO 04/02/2023 M25.561 Pain in right knee Isabela gormannshade, DO 03/11/2023 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, right knee Isabela Espenshade, DO 03/11/2023 M25.561 Pain in right knee Isabela Covarrubias spenshade, DO 03/11/2023 I48.0 Paroxysmal atrial fibrillati on Moise Reed, DO 03/11/2023 L03.116 Cellulitis of left lower tamayo b Moise Reed, DO 03/11/2023 I10 Essential (primary) hyperten micaela Moise Rede, DO 03/11/2023 M25.562 Pain of knee region Moise Reed, DO 03/11/2023 E78.00 Pure hypercholesterolemia, u nspecified Moise Reed, DO 03/11/[address]23 [address]11[address] jules, DO 03/11/2023 Z79.01 halfway (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 a 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 Moise Reed, DO 03/11/2023 Z68.30 Body mass index [BMI] 30.0-3 0.9, adult Moise Reed, DO 02/04/2023 M25.562 Pain of knee region Sherly Sawyer PA-C 02/04/2023 I25.10 Athscl heart dis ease of [place] coronary artery w/o ang pctrs Kyle Cervantes MD 02/04/2023 I48.0 Paroxysmal atrial fibrillati on Kyle Cervantes MD 02/04/2023 I10 Essential (primary) hyperten micaela Kyle Cervantes MD 02/04/2023 E78.00 Pure hypercholesterolemia, u nspecified Kyle Cervantes MD 02/04/2023 R09.89 Oth symptoms and signs involving the circ and resp systems Kyle Cervantes MD 02/04/2023 Z79.01 halfway (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 a 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 Kyle Cervantes [...] 11:30 am - Moise Reed DO at [facility] * 05/11/2023 10:30 am - Danisha Moura PA-C at [facility] * 08/07/2023 2:00 pm - Kyle Cervantes MD at [facility] 04/24/2023 - YAO Cervantes* Z09 Encntr for f/u exam aft trtmt for cond oth than malig neoplm * B37.0 Candidal stomatitis* New Medication:* Nystatin 598809 Unit/ML - swish orally twice a day for 7 days * Nystatin 006474 Unit - 1 take 1 tab three [...] Walker CRNP Pulmonary Referral Closed 04/01/2023 [facility] [address] Isabela Harvey, DO Osteoarthritis o f Left knee Please call daughterKandi to set up appt [phone] Closed [facility] [phone]
--- OUTSIDE RECORDS SUMMARY | 2023-10-17 00:59 | External Medical Summary | Continuity of Care Document ---
Author Name ROBERT RAPP PA-C Address [address] [place] [address] Phone [phone] Organization [facility] Address [address] [place] [address] Phone [phone] Care Team Providers Care Rose Grader Name Role Phone Moise Reed DO Care Team Information Flat Lock Machine Operator [phone] ISABELA HARVEY DO Care Team Information Rec eiver [phone] Moise Reed DO Primary Care Physician Problems [...] SIG Qnty Indications Order ing Provider Date [id number]/ML Suspension swish orally twice a day for 7 days 60ml B37.0 YAO Cervantes 04/24/2023 Ozempic (0.25 Or 0.5 MG/Dose)2mg/3ML Solution Pen-Inject 0.5 mg subcut every week 3ml [facility], DO 04/06/2023 Synvisc Uoc46wx/6ML Soln Prefill Syringe one syringe injected intra-articular in to right knee. dx m17.11 6ml Isabela Harvey, DO 03/13/2023 Uhnybjrejk087bo Tablets 1 by mouth three times a day 90tabs [facility], DO 12/15/2022 Ynupekbrp1gz Tablets 1 tab by mouth every day 30tabs [facility], DO 12/04/2022 Onetouch Delica Lancets Extra Fine 33GMisc use twice a day; dx: e11.9 200units Moise Reed, DO 10/20/2022 Meclizine XHG77lq Tablets 1 tab by mouth three times a day as needed 60tabs R42 [facility], DO 04/02/2022 Tresiba Xchbqigzg635Dggt/ML Solution Pen-Inject inject 24 units am and 32 units pm 9ml [facility], DO 04/02/2022 Onetouch UltraStrips test twice daily dx e11.9 100units Moise Reed, DO 03/18/2022 Levothyroxine Arpssk12urw Tablets 1 tab by mouth every day 90tabs Moise Reed, DO 12/23/[address] 1 cap by mouth every day 90tabs Moise Reed, DO 06/21/2021 Mxzrqhnmvr681dm Capsules 2 cap by mouth four times a day 28caps YAO Cervantes Calcium 600 1 tab by mouth every day Unknown Metoprolol Uvltdbrq57jg Tablets 1 tab by mouth twice a day 180tabs yKle Cervantes MD Orcas-3 Krill Jgb922pz Capsules 2 caps by mouth every day Unknown Vitamin S846yoj (1000 Ut) Capsules 1 cap by mouth every day 90caps Unknown Multivitamin 1 tab by mouth every day Unknown Vitamin B-116945msy Tablets Sub 1 tab by mouth every day Unknown Probiotic 1 cap by mouth every day Unknown Nitroglycerin0.4mg Tablets Sub 1 tablet at first sign of attack; may repeat every 5 min up to 3 tabs, if no relief seek medical help. 25tabs Unknown Potassium Laxchuvwv390(99K) mg Tablets 1 tab by mouth every day Unknown Atorvastatin Qppraqv92yr Tablets 1 tab by mouth every night 90tabs Kyle Cervantes MD Yxcujmw4th Tablets 1 tab by mouth twice a day 180tabs Kyle Cervantes MD Clopidogrel Mktqygaxj08dl Tablets 1 tab by mouth every day 30tabs Moise Reed DO History Medications Tddiydsa428873Cuhc Tablets 1 take 1 tab three time a day X B37.0 YAO Cervantes 04/24/2023 - 04/24/2023 Gkoqbhrwbjwa599lh Tablets 2 tablets once by mouth for one day, then 1 tablet once by mouth for 4 days 6tabs B34.9 Moise Reed DO 12/19/2022 - 02/04/2023 Medications Administered in Office Medication SIG Qnty Indications Ordering Provider Date Injection Betamethasone Acetate & Sodium Phosphate 3 MG Of EachInjection Satish Oviedo 03/11/2023 Immunizations CPT Code Status Date Vaccine Lot # [id number] Given 10/04/2021 Influenza Virus Vaccine H igh Dose Quadrivalent 20091 Given 07/07/2021 Moderna (Covid- 19) vaccine, mRNA, LNP-S, PF, 100 mcg/ 0.5 mL 51454 Given 10/18/2020 Influenza Virus Vaccine H igh Dose Quadrivalent 72762 Given 09/08/2018 Prevnar 13 Pneu mococcal Conjugate Vac 13 Valent For [place] Use 69910 Given 08/17/2018 Influenza Virus Vaccine, Split Virus, Preservative Free Im 0.5ML 97762 Given 08/16/2017 Influenza Virus Vaccine, Split Virus, Preservative Free Im 0.5ML 85032 Given 10/03/2013 Pneumo 23 Pneumococcal Va ccine [...] Range N ote Basic Metabolic Panel 04/15/[address] [address] [phone] Sodium 138 mmol/L Normal 136-145 Potassium 4.0 mmol/L Normal 3.5-5.1 Chloride 108 mmol/L High 98-107 Carbon Dioxide 26 mmol/L Normal 21-32 [facility] Anion Gap 4.0 mmol/L Normal 1.0-15.0 Blood Urea Nitrogen 24 mg/dL High 7-18 Creatinine,Serum 1.20 mg/dL High 0.55-1.02 GFR 43 1 BUN/Creatinine Ratio 20.1 High 10.0-20.00 Glucose 171 mg/dL High 70-99 Osmolality,Calculated 285 Normal 275-295 Calcium 8.9 mg/dL Normal 8.5-10.1 CBC W/ Auto Diff 04/15/2023 [facility] [address] [place] [address] [phone] White Blood Count 5.1 10^3/uL Normal 4.1-10.2 [...] 10^3/uL Normal 0.000-0.012 Laboratory test finding 04/15/[address] [address] [phone] C-Reactive Protein 3.22 mg/dL High 0.00-0.30 2 Laboratory test finding 04/15/[address] [address] [phone] Sedimentation Rate, Automated 33 mm/hr High 0-30 CBC W/O Diff 04/14/[address] [address] [phone] White Blood Count 5.9 10^3/uL Normal 4.1-10.2 [...] 10^3/uL Normal 150-360 Basic Metabolic Panel 04/14/[address] [address] [phone] Sodium 137 mmol/L Normal 136-145 Potassium 4.1 [...] mg/dL Normal 8.5-10.1 Laboratory test finding 04/13/[address] [address] [phone] Thyroid Stimulating Hormone 1.260 uIU/mL Normal 0.358-3.74 Comprehensive Metabolic Panel 04/13/[address] [address] [phone] Sodium 134 mmol/L Low 136-145 Potassium 3.9 [...] 0.8 Ratio Low 1.2-2.3 Glyco Panel 04/13/[address] [address] [phone] Hemoglobin A1c 7.5 % High 3.8-5.6 Estimated Average Glucose 169 mg/dL High 70-126 5 CBC W/ Auto Diff 04/13/[address] [address] [phone] White Blood Count 7.0 10^3/uL Normal 4.1-10.2 [...] 10^3/uL Normal 0.000-0.012 Laboratory test finding 04/13/[address] [address] [phone] Gram Stain GSEPI^Epithelial <SEE NOTE> 6, 7 Wound Culture 04/13/[address] [address] [phone] O:Straga Strep agalactiae <SEE NOTE> 8 Wound Culture Quantity: 9 Xpert MRSA/SA Soft Skin & Tiss 04/13/[address] [address] [phone] MRSA, Soft Skin/Tissue NEGATIVE Negative Staph Aureus, Soft Skin/Tissue NEGATIVE Negat esthela 10 Laboratory test finding 04/12/[address] [address] [phone] Sedimentation Rate, Automated 33 mm/hr High 0-30 [...] 50.0-70.0 Lymph % 35.2 % Normal 20.0-40.0 [place] % 6.9 % Normal 2.0-10.0 Eos % 2.7 % Normal 0.5-5.0 Baso % 1.4 % Normal 0.0-3.0 Ig % 0.2 % High 0.0-0.0 NRBC % 0.0 % Normal 0.0-0.0 Gran # 3.0 10e9/L Normal 1.8-7.5 Lymph # 2.0 10e9/L Normal 1.5-3.5 [place] # 0.4 10e9/L Normal 0.0-0.7 Eos # [...] 160 mg/dL Normal Laboratory test finding 12/19/2022 [facility] [address] [place] [address] [phone] Sars-CoV-2 Rna, Qual PCR see below 17 Laboratory test finding 12/19/2022 [facility] [address] [place] [address] [phone] Covid 19 Antigen W/ Reflex Presumptive Nega <SEE NOTE> Negative 18 Influenza A & B Quick 12/19/2022 [facility] [address] [place] [address] [phone] Influenza A Negative Negative Influenza B Negative [...] of Medical Care in Diabetes" of the [place] [employer] includes the following interpretations of [...] Method: Nucleic Acid Amplification Test including reverse deputy director of finance polymerase chain reaction (RT-PCR) and deputy director of finance mediated amplification (TMA). The test method meets [...] providers and patients using the following websites: [email or web address]://www.[place].RadiumOne/home/Covid-19/HCP/ [facility]/fact-sheet.html [email or web address]://www.[place].RadiumOne/home/Covid-19/ Patients/QuestIVD/fact-sheet.html Due to the current public health emergency, [facility] is accepting samples from appropriate clinical sources [...] about COVID-19 can be found at the [facility] website: [email or web address] For patients with a Detected or Inconclusive test result, please see CDC's " COVID-19 Treatments and Medications" page located at https://www.cdc.gov/ coronavirus/2019-ncov/your-health/mpqkjmagqj-ily-jdneor -illness.html for information on COVID-19 therapeutics. For patients with a Not Detected test result, please see CDC's "Vaccines for COVID-19" page located at https://www.cdc.gov/coronavirus/2019-ncov/vaccines/ index.html for information on COVID-19 vaccines. Test Performed by [facility], [facility], [address] [place] [address] Torsten Mohamud M.D., Ph.D., Director of Laboratories , [place] [id number] 18 Presumptive Negative The sensitivity and specificity [...] Reconciled W/Current Medications In Outpt MR Completed 04/02/202355599 Inject/Drain Art hrocentesis Major Joint/Bursa/Ganglion Cyst Completed 03/11/2023 J0702 Injection Betame thasone Acetate & Sodium Phosphate 3 MG Of Each Completed 03/11/202387598 Inject/Drain Art hrocentesis Major Joint/Bursa/Ganglion Cyst Completed [...] Provider Dx Diagnosis Office Visit 04/24/2023 11:30a [facility] YAO Cervantes Z09 Encntr for f/u exam aft trtmt for cond oth than malig neoplm B37.0 Candidal stomatitis M25.562 Pain in left knee Z68.33 Body mass index [BMI ] 33.0-33.9, adult Office Visit 03/11/2023 3:00p [facility] Moise Reed DO I48.0 Paroxysmal atrial fibrillation L03.116 Cellulitis of left l ower limb I10 Essential (primary) hypertension M25.562 Pain in left knee E78.00 Pure hypercholestero lemia, unspecified E11.9 Type 2 diabetes shawna itus without complications 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 Z68.30 Body mass index [BMI ] 30.0-30.9, adult Office Visit 02/04/2023 3:30p [facility] Sherly Sawyer PA-C M25.562 Pain in left knee Office Visit 02/04/2023 2:40p [facility] Venkatesh Cervantes MD I25.10 Athscl heart disease of [place] coronary artery w/o ang pctrs I48.0 Paroxysmal atrial fi brillation I10 Essential (primary) hypertension E78.00 Pure hypercholestero lemia, unspecified R09.89 Oth symptoms and sig ns involving the circ and resp systems 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 Z68.30 Body mass index [BMI ] 30.0-30.9, adult Office Visit 12/19/2022 1:15p [facility] Barbie Paulino PA-C B34.9 Viral infection, unspecified Z20.822 Contact with and (peterson spected) exposure to Covid-19 Z68.30 Body mass index [BMI ] 30.0-30.9, adult Office Visit 12/04/2022 3:00p [facility] Moise Reed DO I12.9 Hypertensive chronic kidney [...] oth than malig neoplm Riki Dawn Santos, CONSTRUCTION REP 04/24/2023 B37.0 Candidal stomatitis Riki Dawn Tom, CONSTRUCTION REP 04/24/2023 M25.562 Pain in left knee Riki Tucker rris, CONSTRUCTION REP 04/24/2023 Z68.33 Body mass index [BMI] 33.0-3 3.9, adult Riki Santos, CONSTRUCTION REP 04/02/2023 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, right [...] 03/11/2023 E78.00 Pure hypercholesterolemia, u nspecified Moise Rede, DO 03/11/[address]23 [address]11[address] jules, DO 03/11/2023 Z79.01 long-term (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 a 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 Moise Reed, DO 03/11/2023 Z68.30 Body mass index [BMI] 30.0-3 0.9, adult Moise Reed, DO 02/04/2023 M25.562 Pain of knee region Sherly Sawyer PA-C 02/04/2023 I25.10 Athscl heart dis ease of [place] coronary artery w/o ang pctrs Kyle Cervantes MD 02/04/2023 I48.0 Paroxysmal atrial fibrillati on Kyle Cervantes MD 02/04/2023 I10 Essential (primary) hyperten micaela Kyle Cervantes MD 02/04/2023 E78.00 Pure hypercholesterolemia, u nspecified Kyle Cervantes MD 02/04/2023 R09.89 Oth symptoms and signs involving the circ and resp systems Kyle Cervantes MD 02/04/2023 Z79.01 long-term (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 a 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 Kyle Cervantes [...] 11:30 am - Moise Reed DO at [facility] * 05/11/2023 10:30 am - Danisha Moura PA-C at [facility] * 08/07/2023 2:00 pm - Kyle Cervantes MD at [facility] 04/24/2023 - YAO Cervantes* Z09 Encntr for f/u exam aft trtmt for cond oth than malig neoplm * B37.0 Candidal stomatitis* New Medication:* Nystatin 809059 Unit/ML - swish orally twice a day for 7 days * Nystatin 102162 Unit - 1 take 1 tab three [...] Walker CRNP Pulmonary Referral Closed 04/01/[address] [facility] 100 Isabela Harvey, DO Osteoarthritis o f Left knee Please call daughterKandi to set up appt [phone] Closed [address] [facility] [phone]
--- OUTSIDE RECORDS SUMMARY | 2023-10-17 00:59 | External Medical Summary | Continuity of Care Document ---
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 [phone] ISABELA HARVEY DO Care Team Information Rec eiver [phone] Moise Reed DO Primary Care Physician [phone] Problems Active Problems Provider Date Hypothyroidism Onset: [...] Body mass index 30+ - obesity Kyle Cervnates MD Onset: 01/03/2022 Dyslipidemia Enrique Sousa MD [...] SIG Qnty Indications Order ing Provider Date Fdtntpet479503Ncae/ML Suspension swish orally twice a day for 7 days 60ml B37.0 YAO Cervantes 04/24/2023 Ozempic (0.25 Or 0.5 MG/Dose)2mg/3ML Solution Pen-Inject 0.5 mg subcut every week 3ml [facility], DO 04/06/2023 Synvisc Obn49nt/6ML Soln Prefill Syringe one syringe injected intra-articular in to right knee. dx m17.11 6ml Isabela Harvey, DO 03/13/2023 Onjwxcnvgd737yl Tablets 1 by mouth three times a day 90tabs [facility], DO 12/15/2022 Qknsihmqr2am Tablets 1 tab by mouth every day 30tabs [facility], DO 12/04/2022 Onetouch Delica Lancets Extra Fine 33GMisc use twice a day; dx: e11.9 200units Moise Reed, DO 10/20/2022 Meclizine WAQ88dd Tablets 1 tab by mouth three times a day as needed 60tabs R42 [facility], DO 04/02/2022 Tresiba Inlrmamsu353Odpa/ML Solution Pen-Inject inject 24 units am and 32 units pm 9ml [facility], DO 04/02/2022 Onetouch UltraStrips test twice daily dx e11.9 100units Moise Reed, DO 03/18/2022 Levothyroxine Ntlaod94ulx Tablets 1 tab by mouth every day 90tabs [facility], DO 12/23/[address] 1 cap by mouth every day 90tabs Moise Reed, DO 06/21/2021 Nzqphebmec310jj Capsules 2 cap by mouth four times a day 28caps YAO Cervantes Calcium 600 1 tab by mouth every day Unknown Metoprolol Xibimtrl52gy Tablets 1 tab by mouth twice a day 180tabs Kyle Cervantes MD [place]-3 Krill Fbo582xc Capsules 2 caps by mouth every day Unknown Vitamin E899dpg (1000 Ut) Capsules 1 cap by mouth every day 90caps Unknown Multivitamin 1 tab by mouth every day Unknown Vitamin B-[id number] Tablets Sub 1 tab by mouth every day Unknown Probiotic 1 cap by mouth every day Unknown Nitroglycerin0.4mg Tablets Sub 1 tablet at first sign of attack; may repeat every 5 min up to 3 tabs, if no relief seek medical help. 25tabs Unknown Potassium Iylbhyzhn043(99K) mg Tablets 1 tab by mouth every day Unknown Atorvastatin Idiysho58ag Tablets 1 tab by mouth every night 90tabs Kyle Cervantes MD Fnxsjbv6sd Tablets 1 tab by mouth twice a day 180tabs Kyle Cervantes MD Clopidogrel Lzesmhyry14sd Tablets 1 tab by mouth every day 30tabs Moise Reed DO History Medications Unehgycm638179Augb Tablets 1 take 1 tab three time a day X B37.0 YAO Cervantes 04/24/2023 - 04/24/2023 Tzfxlembyxwh308if Tablets 2 tablets once by mouth for one day, then 1 tablet once by mouth for 4 days 6tabs B34.9 Moise Reed DO 12/19/2022 - 02/04/2023 Medications Administered in Office Medication SIG Qnty Indications Ordering Provider Date Injection Betamethasone Acetate & Sodium Phosphate 3 MG Of EachInjection Satish Oviedo 03/11/2023 Immunizations CPT Code Status Date Vaccine Lot # [id number] Given 10/04/2021 Influenza Virus Vaccine H igh Dose Quadrivalent 35974 Given 07/07/2021 Moderna (Covid- 19) vaccine, mRNA, LNP-S, PF, 100 mcg/ 0.5 mL 70086 Given 10/18/2020 Influenza Virus Vaccine H igh Dose Quadrivalent 82687 Given 09/08/2018 Prevnar 13 Pneu mococcal Conjugate Vac 13 Valent For Im Use 04069 Given 08/17/2018 Influenza Virus Vaccine, Split Virus, Preservative Free Im 0.5ML 18395 Given 08/16/2017 Influenza Virus Vaccine, Split Virus, Preservative Free Im 0.5ML 84868 Given 10/03/2013 Pneumo 23 Pneumococcal Va ccine [...] Range N ote Basic Metabolic Panel 04/15/2023 [facility] [address] [place] [address] [phone] Sodium 138 mmol/L Normal 136-145 Potassium 4.0 mmol/L Normal 3.5-5.1 Chloride 108 mmol/L High 98-107 Carbon Dioxide 26 mmol/L Normal 21-32 [facility] Anion Gap 4.0 mmol/L Normal 1.0-15.0 Blood Urea Nitrogen 24 mg/dL High 7-18 Creatinine,Serum 1.20 mg/dL High 0.55-1.02 GFR 43 1 BUN/Creatinine Ratio 20.1 High 10.0-20.00 Glucose 171 mg/dL High 70-99 Osmolality,Calculated 285 Normal 275-295 Calcium 8.9 mg/dL Normal 8.5-10.1 CBC W/ Auto Diff 04/15/2023 [facility] [address] [place] [address] [phone] White Blood Count 5.1 10^3/uL Normal 4.1-10.2 [...] 10^3/uL Normal 0.000-0.012 Laboratory test finding 04/15/[address] [address] [phone] C-Reactive Protein 3.22 mg/dL High 0.00-0.30 2 Laboratory test finding 04/15/[address] [address] [phone] Sedimentation Rate, Automated 33 mm/hr High 0-30 CBC W/O Diff 04/14/[address] [address] [phone] White Blood Count 5.9 10^3/uL Normal 4.1-10.2 [...] 10^3/uL Normal 150-360 Basic Metabolic Panel 04/14/[address] [address] [phone] Sodium 137 mmol/L Normal 136-145 Potassium 4.1 [...] mg/dL Normal 8.5-10.1 Laboratory test finding 04/13/[address] [address] [phone] Thyroid Stimulating Hormone 1.260 uIU/mL Normal 0.358-3.74 Comprehensive Metabolic Panel 04/13/[address] [address] [phone] Sodium 134 mmol/L Low 136-145 Potassium 3.9 [...] 0.8 Ratio Low 1.2-2.3 Glyco Panel 04/13/[address] [address] [phone] Hemoglobin A1c 7.5 % High 3.8-5.6 Estimated Average Glucose 169 mg/dL High 70-126 5 CBC W/ Auto Diff 04/13/[address] [address] [phone] White Blood Count 7.0 10^3/uL Normal 4.1-10.2 [...] 10^3/uL Normal 0.000-0.012 Laboratory test finding 04/13/[address] [address] [phone] Gram Stain GSEPI^Epithelial <SEE NOTE> 6, 7 Wound Culture 04/13/[address] [place] [address] [phone] O:Straga Strep agalactiae <SEE NOTE> 8 Wound Culture Quantity: 9 Xpert MRSA/SA Soft Skin & Tiss 04/13/[address] [place] [address] [phone] MRSA, Soft Skin/Tissue NEGATIVE Negative Staph Aureus, Soft Skin/Tissue NEGATIVE Negat esthela 10 Laboratory test finding 04/12/[address] [place] [address] [phone] Sedimentation Rate, Automated 33 mm/hr High 0-30 [...] 50.0-70.0 Lymph % 35.2 % Normal 20.0-40.0 Gem % 6.9 % Normal 2.0-10.0 Eos % 2.7 % Normal 0.5-5.0 Baso % 1.4 % Normal 0.0-3.0 Ig % 0.2 % High 0.0-0.0 NRBC % 0.0 % Normal 0.0-0.0 Gran # 3.0 10e9/L Normal 1.8-7.5 Lymph # 2.0 10e9/L Normal 1.5-3.5 Gem # 0.4 10e9/L Normal 0.0-0.7 Eos # [...] 160 mg/dL Normal Laboratory test finding 12/19/2022 [facility] [address] [place] [address] [phone] Sars-CoV-2 Rna, Qual PCR see below 17 Laboratory test finding 12/19/2022 [facility] [address] [place] [address] [phone] Covid 19 Antigen W/ Reflex Presumptive Nega <SEE NOTE> Negative 18 Influenza A & B Quick 12/19/2022 [facility] [address] [place] [address] [phone] Influenza A Negative Negative Influenza B Negative [...] of Medical Care in Diabetes" of the [place] [employer] Association includes the following interpretations of [...] Method: Nucleic Acid Amplification Test including reverse lathe set up person polymerase chain reaction (RT-PCR) and lathe set up person mediated amplification (TMA). The test method meets [...] providers and patients using the following websites: https://[email or web address]/Covid-19/HCP/ [employer]/fact-sheet.html [email or web address]://[email or web address]/home/Covid-19/ Patients/[employer]/fact-sheet.html Due to the current public health emergency, [employer] is accepting samples from appropriate clinical sources [...] about COVID-19 can be found at the [employer] website: [email or web address] For patients with a Detected or Inconclusive test result, please see CDC's " COVID-19 Treatments and Medications" page located at https://www.cdc.gov/ coronavirus/2019-ncov/your-health/tkjlqmhdwn-rch-jvmqvu -illness.html for information on COVID-19 therapeutics. For patients with a Not Detected test result, please see CDC's "Vaccines for COVID-19" page located at https://www.cdc.gov/coronavirus/2019-ncov/vaccines/ index.html for information on COVID-19 vaccines. Test Performed by [employer], [employer], [address] [place] [address] Torsten Mohamud M.D., Ph.D., Director of Laboratories , [facility] [id number] 18 Presumptive Negative The sensitivity and specificity [...] Reconciled W/Current Medications In Outpt MR Completed 04/02/202341129 Inject/Drain Art hrocentesis Major Joint/Bursa/Ganglion Cyst Completed [...] Provider Dx Diagnosis Office Visit 04/24/2023 11:30a [facility] YAO Cervantes Z09 Encntr for f/u exam aft trtmt for cond oth than malig neoplm B37.0 Candidal stomatitis M25.562 Pain in left knee Z68.33 Body mass index [BMI ] 33.0-33.9, adult Office Visit 03/11/2023 3:00p [facility] Moise Reed DO I48.0 Paroxysmal atrial fibrillation L03.116 Cellulitis of left l ower limb I10 Essential (primary) hypertension M25.562 Pain in left knee E78.00 Pure hypercholestero lemia, unspecified E11.9 Type 2 diabetes shawna itus without complications 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 Z68.30 Body mass index [BMI ] 30.0-30.9, adult Office Visit 02/04/2023 3:30p [facility] Sherly Sawyer PA-C M25.562 Pain in left knee Office Visit 02/04/2023 2:40p [facility] Venkatesh Cervantes MD I25.10 Athscl heart disease of [place] coronary artery w/o ang pctrs I48.0 Paroxysmal atrial fi brillation I10 Essential (primary) hypertension E78.00 Pure hypercholestero lemia, unspecified R09.89 Oth symptoms and sig ns involving the circ and resp systems Z79.01 penitentiary (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 a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 Z68.30 Body mass index [BMI ] 30.0-30.9, adult Office Visit 12/19/2022 1:15p [facility] Barbie Paulino PA-C B34.9 Viral infection, unspecified Z20.822 Contact with and (peterson spected) exposure to Covid-19 Z68.30 Body mass index [BMI ] 30.0-30.9, adult Office Visit 12/04/2022 3:00p [facility] Moise Reed DO I12.9 Hypertensive chronic [...] oth than malig neoplm Renéeoralia Dawn Santos, GRADUATE ADVISOR 04/24/2023 B37.0 Candidal stomatitis Riki Dawn Tom, GRADUATE ADVISOR 04/24/2023 M25.562 Pain in left knee Riki Tucker rris, GRADUATE ADVISOR 04/24/2023 Z68.33 Body mass index [BMI] 33.0-3 3.9, adult Riki Santos, GRADUATE ADVISOR 04/02/2023 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, right [...] mellitus Moise St jules, DO 03/11/2023 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 a 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 Moise Reed, DO 03/11/2023 Z68.30 Body mass index [BMI] 30.0-3 0.9, adult Moise Reed, DO 02/04/2023 M25.562 Pain of knee region Sherly Sawyer PA-C 02/04/2023 I25.10 Athscl heart dis ease of [place] coronary artery w/o ang pctrs Kyle Cervantes MD 02/04/2023 I48.0 Paroxysmal atrial fibrillati on Kyle Cervantes MD 02/04/2023 I10 Essential (primary) hyperten micaela Kyle Cervantes MD 02/04/2023 E78.00 Pure hypercholesterolemia, u nspecified Kyle Cervantes MD 02/04/2023 R09.89 Oth symptoms and signs involving the circ and resp systems Kyle Cervantes MD 02/04/2023 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 a 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 Kyle Cervantes [...] 11:30 am - Moise Reed DO at [facility] * 05/11/2023 10:30 am - Danisha Moura PA-C at [facility] * 08/07/2023 2:00 pm - Kyle Cervantes MD at [facility] 04/24/2023 - YAO Cervantes* Z09 Encntr for f/u exam aft trtmt for cond oth than malig neoplm * B37.0 Candidal stomatitis* New Medication:* Nystatin 295385 Unit/ML - swish orally twice a day for 7 days * Nystatin 484512 Unit - 1 take 1 tab three [...] Walker CRNP Pulmonary Referral Closed 04/01/2023 [address] [facility] [address] Isabela Harvey, Osteoarthritis o f Left knee Please call daughterKandi to set up appt [phone] Closed [address] [facility] [phone]
--- OUTSIDE RECORDS SUMMARY | 2023-10-17 01:00 | External Medical Summary | Continuity of Care Document ---
Author Name TOMRIKI López SAMAYOA Address [address] [place] [address] Phone [phone] Organization [facility] Address [address] [place] [address] Phone [phone] Care Team Providers Care Scientist Propagator Name Role Phone Moise Reed DO Care Team Information Inshore Undersea Warfare Officer [phone] ISABELA HARVEY DO Care Team Information Rec eiver [phone] Moise Reed DO Primary Care Physician Problems [...] Dyslipidemia Enrique Sousa MD Onset: 01/23/20 22 Sleep apnea Kyle Cervantes MD Onset: 2022 Viremia Barbie Paulino PA-C Onset: Social History Type Date Description Comments Sex [...] SIG Qnty Indications Order ing Provider Date [id number]/ML Suspension swish orally twice a day for 7 days 60ml B37.0 YAO Cervantes 04/24/2023 Ozempic (0.25 Or 0.5 MG/Dose)2mg/3ML Solution Pen-Inject 0.5 mg subcut every week 3ml [facility], DO 04/06/2023 Synvisc Dwf98to/6ML Soln Prefill Syringe one syringe injected intra-articular in to right knee. dx m17.11 6ml Isabela Harvey, DO 03/13/2023 Znihswpswa475mc Tablets 1 by mouth three times a day 90tabs [facility], DO 12/15/2022 Jezfbdtor8oq Tablets 1 tab by mouth every day 30tabs [facility], DO 12/04/2022 Onetouch Delica Lancets Extra Fine 33GMisc use twice a day; dx: e11.9 200units Moise Reed, DO 10/20/2022 Meclizine ENN10gb Tablets 1 tab by mouth three times a day as needed 60tabs R42 Moise Reed, DO 04/02/2022 Tresiba Tldsszmej010Cinm/ML Solution Pen-Inject inject 24 units am and 32 units pm 9ml [facility], DO 04/02/2022 Onetouch UltraStrips test twice daily dx e11.9 100units Moise Reed, DO 03/18/2022 Levothyroxine Omdhym72udc Tablets 1 tab by mouth every day 90tabs Moise Reed, DO 12/23/[address] 1 cap by mouth every day 90tabs Moise Reed, DO 06/21/2021 Ukefwncsav369cp Capsules 2 cap by mouth four times a day 28caps YAO Cervantes Calcium 600 1 tab by mouth every day Unknown Metoprolol Vsyistiz01zi Tablets 1 tab by mouth twice a day 180tabs Kyle Cervantes MD [place]-3 Krill Cye285to Capsules 2 caps by mouth every day Unknown Vitamin I549uap (1000 Ut) Capsules 1 cap by mouth every day 90caps Unknown Multivitamin 1 tab by mouth every day Unknown Vitamin B-405209nzq Tablets Sub 1 tab by mouth every day Unknown Probiotic 1 cap by mouth every day Unknown Nitroglycerin0.4mg Tablets Sub 1 tablet at first sign of attack; may repeat every 5 min up to 3 tabs, if no relief seek medical help. 25tabs Unknown Potassium Wfwlaqlrl113(99K) mg Tablets 1 tab by mouth every day Unknown Atorvastatin Ranvlfa62tj Tablets 1 tab by mouth every night 90tabs Kyle Cervantes MD Pmewlvc5ak Tablets 1 tab by mouth twice a day 180tabs Kyle Cervantes MD Clopidogrel Ulrzilkws83ps Tablets 1 tab by mouth every day 30tabs Moise Reed DO History Medications Kplpamcw125387Olgl Tablets 1 take 1 tab three time a day X B37.0 YAO Cervantes 04/24/2023 - 04/24/2023 Dybcgoxhslsm139ff Tablets 2 tablets once by mouth for one day, then 1 tablet once by mouth for 4 days 6tabs B34.9 Moise Reed DO 12/19/2022 - 02/04/2023 Medications Administered in Office Medication SIG Qnty Indications Ordering Provider Date Injection Betamethasone Acetate & Sodium Phosphate 3 MG Of EachInjection Satish Oviedo 03/11/2023 Immunizations CPT Code Status Date Vaccine Lot # [id number] Given 10/04/2021 Influenza Virus Vaccine H igh Dose Quadrivalent 85861 Given 07/07/2021 Moderna (Covid- 19) vaccine, mRNA, LNP-S, PF, 100 mcg/ 0.5 mL 47687 Given 10/18/2020 Influenza Virus Vaccine H igh Dose Quadrivalent 99109 Given 09/08/2018 Prevnar 13 Pneu mococcal Conjugate Vac 13 Valent For Im Use 55121 Given 08/17/2018 Influenza Virus Vaccine, Split Virus, Preservative Free Im 0.5ML 20228 Given 08/16/2017 Influenza Virus Vaccine, Split Virus, Preservative Free Im 0.5ML 81515 Given 10/03/2013 Pneumo 23 Pneumococcal Va ccine [...] Range N ote Basic Metabolic Panel 04/15/2023 [facility] [place] [address] [place] [address] [phone] Sodium 138 mmol/L Normal 136-145 Potassium 4.0 mmol/L Normal 3.5-5.1 Chloride 108 mmol/L High 98-107 Carbon Dioxide 26 mmol/L Normal 21-32 [facility] [place] Anion Gap 4.0 mmol/L Normal 1.0-15.0 Blood Urea Nitrogen 24 mg/dL High 7-18 Creatinine,Serum 1.20 mg/dL High 0.55-1.02 GFR 43 1 BUN/Creatinine Ratio 20.1 High 10.0-20.00 Glucose 171 mg/dL High 70-99 Osmolality,Calculated 285 Normal 275-295 Calcium 8.9 mg/dL Normal 8.5-10.1 CBC W/ Auto Diff 04/15/2023 [facility] [place] [address] [place] [address] [phone] White Blood Count 5.1 10^3/uL Normal 4.1-10.2 [...] 10^3/uL Normal 0.000-0.012 Laboratory test finding 04/15/[address] [address] [phone] C-Reactive Protein 3.22 mg/dL High 0.00-0.30 2 Laboratory test finding 04/15/[address] [address] [phone] Sedimentation Rate, Automated 33 mm/hr High 0-30 CBC W/O Diff 04/14/[address] [address] [phone] White Blood Count 5.9 10^3/uL Normal 4.1-10.2 [...] 10^3/uL Normal 150-360 Basic Metabolic Panel 04/14/[address] [address] [phone] Sodium 137 mmol/L Normal 136-145 Potassium 4.1 [...] mg/dL Normal 8.5-10.1 Laboratory test finding 04/13/[address] [address] [phone] Thyroid Stimulating Hormone 1.260 uIU/mL Normal 0.358-3.74 Comprehensive Metabolic Panel 04/13/2023 [facility] [place] [address] [place] [address] [phone] Sodium 134 mmol/L Low 136-145 Potassium 3.9 [...] 0.8 Ratio Low 1.2-2.3 Glyco Panel 04/13/[address] [address] [phone] Hemoglobin A1c 7.5 % High 3.8-5.6 Estimated Average Glucose 169 mg/dL High 70-126 5 CBC W/ Auto Diff 04/13/[address] [address] [phone] White Blood Count 7.0 10^3/uL Normal 4.1-10.2 [...] 10^3/uL Normal 0.000-0.012 Laboratory test finding 04/13/[address] [place] [address] [phone] Gram Stain GSEPI^Epithelial <SEE NOTE> 6, 7 Wound Culture 04/13/[address] [place] [address] [phone] O:Straga Strep agalactiae <SEE NOTE> 8 Wound Culture Quantity: 9 Xpert MRSA/SA Soft Skin & Tiss 04/13/[address], [place] [address] [phone] MRSA, Soft Skin/Tissue NEGATIVE Negative Staph Aureus, Soft Skin/Tissue NEGATIVE Negat esthela 10 Laboratory test finding 04/12/[address] [place] [address] [phone] Sedimentation Rate, Automated 33 mm/hr High 0-30 [...] 50.0-70.0 Lymph % 35.2 % Normal 20.0-40.0 [place] % 6.9 % Normal 2.0-10.0 Eos % 2.7 % Normal 0.5-5.0 Baso % 1.4 % Normal 0.0-3.0 Ig % 0.2 % High 0.0-0.0 NRBC % 0.0 % Normal 0.0-0.0 Gran # 3.0 10e9/L Normal 1.8-7.5 Lymph # 2.0 10e9/L Normal 1.5-3.5 [place] # 0.4 10e9/L Normal 0.0-0.7 Eos # [...] 160 mg/dL Normal Laboratory test finding 12/19/2022 [facility] [place] [address] [place] [address] [phone] Sars-CoV-2 Rna, Qual PCR see below 17 Laboratory test finding 12/19/2022 [facility] [place] [address] [place] [address] [phone] Covid 19 Antigen W/ Reflex Presumptive Nega <SEE NOTE> Negative 18 Influenza A & B Quick 12/19/2022 [facility] [place] [address] [place] [address] [phone] Influenza A Negative Negative Influenza B Negative [...] Care in Diabetes" of the Citizen Of [place] Diabetes Association includes the following interpretations of [...] Method: Nucleic Acid Amplification Test including reverse websphere message broker developer polymerase chain reaction (RT-PCR) and websphere message broker developer mediated amplification (TMA). The test method meets [...] providers and patients using the following websites: https://www.[employer]/home/Covid-19/HCP/ Quest[employer]D/fact-sheet.html https://www.[employer]/home/Covid-19/ Patients/QuestIVD/fact-sheet.html Due to the current public health emergency, [facility] is accepting samples from appropriate clinical sources [...] about COVID-19 can be found at the [facility] website: www.[employer]/Covid19 For patients with a Detected or Inconclusive test result, please see CDC's " COVID-19 Treatments and Medications" page located at https://www.cdc.gov/ coronavirus/2019-ncov/your-health/kfstmutodw-jcw-rsqnlh -illness.html for information on COVID-19 therapeutics. For patients with a Not Detected test result, please see CDC's "Vaccines for COVID-19" page located at https://www.cdc.gov/coronavirus/2019-ncov/vaccines/ index.html for information on COVID-19 vaccines. Test Performed by [employer], [facility], [address] [place] [address] Torsten Mohamud M.D., Ph.D., Director of Laboratories , [facility] [id number] 18 Presumptive Negative The sensitivity and specificity [...] Reconciled W/Current Medications In Outpt MR Completed 04/02/202317734 Inject/Drain Art hrocentesis Major Joint/Bursa/Ganglion Cyst Completed 03/11/2023 J0702 Injection Betame thasone Acetate & Sodium Phosphate 3 MG Of Each Completed 03/11/202364253 Inject/Drain Art hrocentesis Major Joint/Bursa/Ganglion Cyst Completed [...] Provider Dx Diagnosis Office Visit 04/24/2023 11:30a [facility] YAO Cervantes Z09 Encntr for f/u exam aft trtmt for cond oth than malig neoplm B37.0 Candidal stomatitis M25.562 Pain in left knee Z68.33 Body mass index [BMI ] 33.0-33.9, adult Office Visit 03/11/2023 3:00p [facility] Moise Reed DO I48.0 Paroxysmal atrial fibrillation L03.116 Cellulitis of left l ower limb I10 Essential (primary) hypertension M25.562 Pain in left knee E78.00 Pure hypercholestero lemia, unspecified E11.9 Type 2 diabetes shawna itus without complications Z79.01 assisted (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 a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 Z68.30 Body mass index [BMI ] 30.0-30.9, adult Office Visit 02/04/2023 3:30p [facility] Sherly Sawyer PA-C M25.562 Pain in left knee Office Visit 02/04/2023 2:40p [facility] Venkatesh Cervantes MD I25.10 Athscl heart disease of [place] coronary artery w/o ang pctrs I48.0 Paroxysmal atrial fi brillation I10 Essential (primary) hypertension E78.00 Pure hypercholestero lemia, unspecified R09.89 Oth symptoms and sig ns involving the circ and resp systems Z79.01 assisted (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 a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 Z68.30 Body mass index [BMI ] 30.0-30.9, adult Office Visit 12/19/2022 1:15p [facility] Barbie Paulino PA-C B34.9 Viral infection, unspecified Z20.822 Contact with and (peterson spected) exposure to Covid-19 Z68.30 Body mass index [BMI ] 30.0-30.9, adult Office Visit 12/04/2022 3:00p [facility] Moise Reed DO I12.9 Hypertensive chronic [...] oth than malig neoplm Renéeoralia Dawn Tom, CERTIFIED LEGAL SECRETARY SPECIALIST 04/24/2023 B37.0 Candidal stomatitis Renéeoralia Dawn Tom, CERTIFIED LEGAL SECRETARY SPECIALIST 04/24/2023 M25.562 Pain in left knee Riki Tucker rris, CERTIFIED LEGAL SECRETARY SPECIALIST 04/24/2023 Z68.33 Body mass index [BMI] 33.0-3 3.9, adult Renéeoralia Dawn Tom, CERTIFIED LEGAL SECRETARY SPECIALIST 04/02/2023 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, right knee Isabela Bakerhade, DO 04/02/2023 M25.561 Pain in right knee Isabela hernandezhade, DO 03/11/2023 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, right knee Isabela Esphade, DO 03/11/2023 M25.561 Pain in right knee Isabela hernandezhade, DO 03/11/2023 I48.0 Paroxysmal atrial fibrillati on Moise Reed, DO 03/11/2023 L03.116 Cellulitis of left lower tamayo b Moise Reed, DO 03/11/2023 I10 Essential (primary) hyperten micaela Moise Reed, DO 03/11/2023 M25.562 Pain of knee region Moise Reed, DO 03/11/2023 E78.00 Pure hypercholesterolemia, u nspecified Moise Reed, DO 03/11/[address]23 [address]11[address] jules, DO 03/11/2023 Z79.01 assisted (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 a 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 Moise Reed, DO 03/11/2023 Z68.30 Body mass index [BMI] 30.0-3 0.9, adult Moise Reed, DO 02/04/2023 M25.562 Pain of knee region Sherly Sawyer PA-C 02/04/2023 I25.10 Athscl heart dis ease of [place] coronary artery w/o ang pctrs Kyle Cervantes MD 02/04/2023 I48.0 Paroxysmal atrial fibrillati on Kyle Cervantes MD 02/04/2023 I10 Essential (primary) hyperten mciaela Kyle Cervantes MD 02/04/2023 E78.00 Pure hypercholesterolemia, u nspecified Kyle Cervantes MD 02/04/2023 R09.89 Oth symptoms and signs involving the circ and resp systems Kyle Cervantes MD 02/04/2023 Z79.01 assisted (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 a 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 Kyle Cervantes [...] Reed DO Plan of Treatment Future Appointment(s):* 05/11/2023 10:30 am - Danisha Moura PA-C at [facility] * 06/12/2023 9:30 am - Moise Reed DO at [facility] * 08/07/2023 2:00 pm - Kyle Cervantes MD at [facility] 04/24/2023 - YAO Cervantes* Z09 Encntr for f/u exam aft trtmt for cond oth than malig neoplm * B37.0 Candidal stomatitis* New Medication:* Nystatin 349904 Unit/ML - swish orally twice a day for 7 days * Nystatin 443927 Unit - 1 take 1 tab three time a day X * M25.562 Pain in left knee* New Xrays:* MRI Foot W/O Contrast Right, Ordered: 04/24/23 * Recommendations:* Pt's right knee is edematous, states she has scar tissue in the knee. request ortho referral to [place]. Pt states her right foot was cleaned [...] Walker CRNP Pulmonary Referral Closed 04/01/2023 [facility] 100 Isabela Harvey, DO Osteoarthritis o f Left knee Please call daughterKandi to set up appt [phone] Closed [address] [facility] [phone]
--- OUTSIDE RECORDS SUMMARY | 2023-10-17 01:00 | External Medical Summary | Continuity of Care Document ---
Author Name Unknown Organization [place] [address] [facility] Address [address], [place] [id number] Care Team Providers Care Sewage Plant Operator Name Role Phone Moise Reed Satish Primary Care Physician [phone] [facility] [id number] Date(s): 04/21/23 - 04/21/[address], [address] [place] [address] [phone] Discharge Disposition: Home or Self Care Attending Physician: FAITH Araujo Lynn Referring Physician: FAITH Araujo Lynn Allergies, Adverse Reactions, Alerts Substance Reaction Severity [...] for indigestion Start Date: 06/08/22 Status: Ordered cephalexin Start: 04/23/23 10:36:00 EDT, 1,000 mg =, PO, qid Start Date: 04/23/23 Status: Ordered cholecalciferol 25 mcg (1000 intl [...] PO, bid Start Date: 06/08/22 Status: Ordered levothyroxine 75 mcg (0.075 mg) oral capsule Start: 06/08/22 0:13:00 EDT, 1 cap, PO, Daily, 75 Unknown, Oral, 3 Refill(s) Start Date: 06/08/22 Status: Ordered metoprolol tartrate 25 mg oral tablet Start: 06/08/22 11:37:00 EDT, 1 tab, PO, bid Start Date: 06/08/22 Status: Ordered multivitamin Start: 06/08/22 11:41:00 EDT, 1 tab, PO, Daily Start Date: 06/08/22 Status: Ordered [place]-3 1000 mg oral capsule Start: 06/08/22 11:34:00 EDT, 1 cap, PO, Daily Start Date: 06/08/22 Status: Ordered Ozempic (0.25 mg or 0.5 mg dose) 2 mg/1.5 mL subcutaneous solution Start: 10/14/22 13:31:00 EST Start Date: 10/14/22 Status: Ordered pantoprazole 40 mg oral delayed release tablet Start: 06/08/22 11:37:00 EDT, 1 tab, PO, Daily Start Date: 06/08/22 Status: Ordered potassium gluconate 595 mg (99 mg elemental potassium) oral tablet Start: 06/08/22 11:40:00 EDT, 1 tab, PO, Daily Start Date: 06/08/22 Status: Ordered Probiotic Formula Start: 06/08/22 11:40:00 EDT, 1 cap, PO, Daily Start Date: 06/08/22 Status: Ordered traMADol 50 mg oral tablet Start: 10/14/22 13:19:00 EST Start Date: 10/14/22 Status: Ordered Tresiba FlexTouch 100 units/mL subcutaneous solution Start: 06/08/22 11:33:00 EDT, 34 unit =, subQ, qPM Start Date: 06/08/22 Status: Ordered Tresiba FlexTouch 100 units/mL subcutaneous solution Start: 06/08/22 11:33:00 EDT, 24 unit =, subQ, qAM Start Date: 06/08/22 Status: Ordered Problem List Condition Confirmation Course Effective Dates Status H ealth Status Informant Arthritis Confirmed Active (atherosclerosis) Confirmed Active Afib Confirmed Active Diabetes Confirmed Active Glaucoma Confirmed Active Heartburn Confirmed Active Right hip pain Confirmed Active Hypertension Confirmed Active Hypothyroidism Confirmed Active Numbness Confirmed Active Pneumonia Confirmed Active Procedures Procedure Date Related Diagnosis Body Site Status LLE Angiogram w/ lithotripsy and FLUE GAS ANALYST PT trunk and proximal pop 09/05/22 Comple leena Results Radiology Reports * Exam Date Time Procedure Performing Provider Status 04/21/23 4:20 PM VL Lower Ext Arterial Duplex Bilateral ; Final Notes: (VL Lower Ext Arterial Duplex Bilateral) Reason For Exam: PAD VL Lower Ext Arterial Duplex Bilateral [facility] FINAL REPORT Name: BROWN DONIS : 1940 Visit: [id number] Date: 21 Apr 2023 TYPE OF TEST: Extremity Arterial Duplex REASON FOR TEST PAD INTERPRETATION/FINDINGS Arterial duplex imaging performed of the [...] has increased from 0.67 to 0.87. IMPRESSION/COMMENTS I have personally reviewed the data relevant to the interpretation of this study. TECHNOLOGIST: Livia Driscoll, SHELDON, RVT PHYSICIAN: Keila Pacheco M.D. Signed: 04/22/2023 03:24 PM Final Dictated by:MD Pacheco Kristine L Dictated DT/TM:04/22/2023 3:24 Signed by:MD Pacheco Kristine L Signed (Electronic Signature):04/22/2023 3:24 p Transcribed by:NEO Social History Social History Type Response Smoking Status Never smoked cigaret oriana Sex Female Note * MD Pacheco Kristine L: VERIFY, PERFORM, VERIFY, TRANSCRIBE Event Display: Report Authored Date: [id number] [facility] FINAL REPORT Name: BROWN DONIS : 1940 Visit: [id number] Date: 21 Apr 2023 TYPE OF TEST: Extremity Arterial Duplex REASON FOR TEST PAD INTERPRETATION/FINDINGS Arterial duplex imaging performed of the [...] has increased from 0.67 to 0.87. IMPRESSION/COMMENTS I have personally reviewed the data relevant to the interpretation of this study. TECHNOLOGIST: Livia Driscoll RDCS, RVT PHYSICIAN: Keila Pacheco M.D. Signed: 04/22/2023 03:24 PM Final Dictated by:MD Pacheco Kristine L Dictated DT/TM:04/22/2023 3:24 Signed by:MD Pacheco Kristine L Signed (Electronic Signature):04/22/2023 3:24 p Transcribed by:NEO Patient Care team information Care Team Personnel Name: Selin Gambino Amanda Position: Pharmacist Member Role: Pharmacy - Lifetime Name: FAITH Araujo Lynn Position: Physician Aircraft Refueler Exempt - Vasc Surg Member Role: Lifetime Relationship Address: Address: [address] [place] [id number] Name: DO Reed Douglas D Position: Referring Member Role: Primary Care Provider Address: Address: [facility] [address] [place] [address] Care Team Related Persons Name: MACARIO MATIAS Name: MAURY CASTRO
--- OUTSIDE RECORDS SUMMARY | 2023-10-17 01:00 | External Medical Summary | Continuity of Care Document ---
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 Donis is an elderly female who presents to Dr. Zamudio's vascular surgery clinic today for 6-month follow-up visit regarding her history of peripheral arterial disease. Patient states that she is getting around okay, however, she continues to have a nonhealing wound of her left great toe area. She continues to follow with podiatry for this. She was recently in the hospital and had a "blood infection" per patient. She states that they advised her that it was not at all related to her foot wound. She denies any symptoms of claudication, rest pain, new ulcerations or wounds. She states that the pain she had been experiencing in her right groin is now completely resolved. Ultrasound of her bilateral lower extremities demonstrates scattered atherosclerotic disease, with a 75 to 99% stenosis of her right posterior tibial artery. Her left lower extremity demonstrates atherosclerotic disease which is scattered throughout and an occlusion of her posterior tibial artery. Her left leg LILI is 0.87 Current Home Meds: (Last Updated 04/23 10:36) acetaminophen (acetaminophen 650 mg oral tablet, extended release) ORAL, 1 Refill(s), 1 tab by mouth twice a day apixaban (apixaban 5 mg oral tablet) 5 mg PO bid atorvastatin (atorvastatin 40 mg oral tablet) 40 mg PO Daily 90 each Responsible Provider: ZANE HINSON 06/08 00:12 bifidobacterium-lactobacillus (Probiotic Formula) 1 cap PO Daily calcium carbonate (calcium (as carbonate) 600 mg oral tablet) 600 mg PO Daily PRN: as needed for indigestion cephalexin 1,000 mg PO qid cholecalciferol (cholecalciferol 25 mcg (1000 intl units) oral capsule) 25 mcg PO Daily clopidogrel (clopidogrel 75 mg oral tablet) 75 mg PO qMonWedFri 36 each Responsible Provider: ZANE HINSON 06/08 00:13 cyanocobalamin (cyanocobalamin 2500 mcg oral tablet) 2,500 mcg PO Daily gabapentin (gabapentin 800 mg oral tablet) 800 mg PO bid insulin degludec (Tresiba FlexTouch 100 units/mL subcutaneous solution) 34 unit subQ qPM insulin degludec (Tresiba FlexTouch 100 units/mL subcutaneous solution) 24 unit subQ qAM levothyroxine (levothyroxine 75 mcg (0.075 mg) oral capsule) 75 mcg PO Daily 75 Unknown, Oral, 3 Refill(s) metoprolol (metoprolol tartrate 25 mg oral tablet) 25 mg PO bid multivitamin 1 tab PO Daily omega-3 polyunsaturated fatty acids ([place]-3 1000 mg oral capsule) 1,000 mg PO Daily pantoprazole (pantoprazole 40 mg oral delayed release tablet) 40 mg PO Daily potassium gluconate (potassium gluconate 595 mg (99 mg elemental potassium) oral tablet) 595 mg PO Daily semaglutide (Ozempic (0.25 mg or 0.5 mg dose) 2 mg/1.5 mL subcutaneous solution) traMADol (traMADol 50 mg oral tablet) Allergies and Sensitivities: meloxicam(reaction unknown) metFORMIN(Diarrhea) Past Medical History: Problems: Right hip pain (atherosclerosis) Glaucoma Arthritis Diabetes Heartburn Hypertension Numbness Pneumonia Afib Hypothyroidism OBJECTIVE Vitals: Last Updated 04/23/23 10:42 Date Temp BP Location Pulse RR SpO2 Pain 04/23/23 130/68 Right Arm 69 96 04/23/23 132/68 Left Arm 02/17/23 0 Vital Signs are the last 3 documented. No Orthostatic Data Available Height and Weight: Last Updated 04/23/23 10:42 Date BMI Wt(kg) Wt(lb) Method Ht(cm) (ft-in) Method 04/23/23 81 178 Standing Scale 10/14/22 31.77 83.9 185 Standing Scale 162.5 5-4 08/12/22 78.1 172 Standing Scale Heights and Weights are the last 3 documented. Physical Exam Constitutional: In general patient is a healthy-appearing well-nourished well-developed elderly female in no distress. She is alert and oriented without any focal deficits. Her heart is irregular, her lungs are clear. Her abdomen soft nontender with normoactive bowel sounds in all 4 quadrants. Radial pulses are +3. Femoral pulses are +2. Lower extremity distal pulses are +2 DP, +1 PT. She has a brisk capillary refill and no sign of distal ischemia. She does continue to have an ulceration to the plantar aspect of her first metatarsal on the left foot. ASSESSMENT: _ PLAN: _ 1 ) _peripheral arterial disease Patient continues to have a nonhealing wound to the left foot, and recently was hospitalized with possible bacteremia per patient. These records are not available for my review. We recommend that she follow with her machine repairman for further recommendations regarding the foot wound. At this point her arteries are patent and optimized. We recommend that she return here in another 6 months for reevaluation with an ultrasound prior to that visit. She is advised to call with any other questions. Thank you for letting us participate in the care of this patient. Medications acetaminophen 650 mg oral tablet, extended [...] PO, Daily Start Date: 06/08/22 Status: Ordered [place]-3 1000 mg oral capsule Start: 06/08/22 11:34:00 [...] subQ, qAM Start Date: 06/08/22 Status: Ordered Mental Status 04/23/23 Barriers to Learning one year None evide nt Mandatory Health Literacy Documentation Yes Health Literacy Communication Barriers N ever Primary Language Israeli Problem List Condition Confirmation Course Effective Dates Status H ealth Status Informant Arthritis Confirmed Active (atherosclerosis) Confirmed Active Afib Confirmed Active Diabetes Confirmed Active Glaucoma Confirmed Active Heartburn Confirmed Active Right hip pain Confirmed Active Hypertension Confirmed Active Hypothyroidism Confirmed Active Numbness Confirmed Active Pneumonia Confirmed Active Diagnosis Diagnosis Type Effective Dates Health Status Clinical Service Informant 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 Discharge Diagnosis 04/23/23 Procedures Procedure Date Related Diagnosis Body Site Status LLE Angiogram w/ lithotripsy and DEPENDENCY COUNSELOR PT trunk and proximal pop 09/05/22 Comple leena Vital Signs Most recent to oldest [Reference Range]: 1 2 Patient Weight 81 kg (04/23/23 10:42 AM) Heart Rate 69 bpm (04/23/23 10:42 AM) Blood Pressure 130/68mmHg (04/23/23 10:42 AM) 132/68mmHg (04/23/23 10:40 AM) BP Location # 1 Right Arm (04/23/23 10:42 AM) Left Arm (04/23/23 10:40 AM) Social History Social History Type Response Smoking Status Never smoked cigaret oriana Sex Female [facility] Outpt Note * FAITH Araujo Lynn: PERFORM Event Display: [facility] Outpt Note Authored Date: [id number] [facility] OUTPATIENT NOTE Name: BROWN DONIS Patient Number: [id number] : 1940 Date of Service: 04/23/2023 Chief Complaint: _Follow-up for PAD HPI: _Mrs. Donis is an elderly female who presents to Dr. Zamudio's vascular surgery clinic today for 6-month follow-up visit regarding her history of peripheral arterial disease. Patient states that she is getting around okay, however, she continues to have a nonhealing wound of her left great toe area. She continues to follow with podiatry for this. She was recently in the hospital and had a "blood infection" per patient. She states that they advised her that it was not at all related to herfoot wound. She denies any symptoms of claudication, rest pain, new ulcerations or wounds. She states that the pain she had been experiencing in her right groin is now completely resolved. Ultrasound of her bilateral lower extremities demonstrates scattered atherosclerotic disease, with a 75 to 99% stenosis of her right posterior tibial artery. Her left lower extremity demonstrates atherosclerotic disease which is scattered throughout and an occlusion of her posterior tibial artery. Her left leg LILI is 0.87 Current Home Meds: (Last Updated 04/23 10:36) acetaminophen (acetaminophen 650 mg oral tablet, extended release) ORAL, 1 Refill(s), 1 tab by mouth twice a day apixaban (apixaban 5 mg oral tablet) 5 mg PO bid atorvastatin (atorvastatin 40 mg oral tablet) 40 mg PO Daily 90 each Responsible Provider: ZANE HINSON 06/08 00:12 bifidobacterium-lactobacillus (Probiotic Formula) 1 cap PO Daily calcium carbonate (calcium (as carbonate) 600 mg oral tablet) 600 mg PO Daily PRN: as needed for indigestion cephalexin 1,000 mg PO qid cholecalciferol (cholecalciferol 25 mcg (1000 intl units) oral capsule) 25 mcg PO Daily clopidogrel (clopidogrel 75 mg oral tablet) 75 mg PO qMonWedFri 36 each Responsible Provider: ZANE HINSON 06/08 00:13 cyanocobalamin (cyanocobalamin 2500 mcg oral tablet) 2,500 mcg PO Daily gabapentin (gabapentin 800 mg oral tablet) 800 mg PO bid insulin degludec (Tresiba FlexTouch 100 units/mL subcutaneous solution) 34 unit subQ qPM insulin degludec (Tresiba FlexTouch 100 units/mL subcutaneous solution) 24 unit subQ qAM levothyroxine (levothyroxine 75 mcg (0.075 mg) oral capsule) 75 mcg PO Daily 75 Unknown, Oral, 3 Refill(s) metoprolol (metoprolol tartrate 25 mg oral tablet) 25 mg PO bid multivitamin 1 tab PO Daily omega-3 polyunsaturated fatty acids ([place]-3 1000 mg oral capsule) 1,000 mg PO Daily pantoprazole (pantoprazole 40 mg oral delayed release tablet) 40 mg PO Daily potassium gluconate (potassium gluconate 595 mg (99 mg elemental potassium) oral tablet) 595 mg PO Daily semaglutide (Ozempic (0.25 mg or 0.5 mg dose) 2 mg/1.5 mL subcutaneous solution) traMADol (traMADol 50 mg oral tablet) Allergies and Sensitivities: meloxicam(reaction unknown) metFORMIN(Diarrhea) Past Medical History: Problems: Right hip pain (atherosclerosis) Glaucoma Arthritis Diabetes Heartburn Hypertension Numbness Pneumonia Afib Hypothyroidism OBJECTIVE Vitals: Last Updated 04/23/23 10:42 Date Temp BP Location Pulse RR SpO2 Pain 04/23/23 130/68 Right Arm 69 96 04/23/23 132/68 Left Arm 02/17/23 0 Vital Signs are the last 3 documented. No Orthostatic Data Available Height and Weight: Last Updated 04/23/23 10:42 Date BMI Wt(kg) Wt(lb) Method Ht(cm) (ft-in) Method 04/23/23 81 178 Standing Scale 10/14/22 31.77 83.9 185 Standing Scale 162.5 5-4 08/12/22 78.1 172 Standing Scale Heights and Weights are the last 3 documented. Physical Exam Constitutional: In general patient is a healthy-appearing well-nourished well- developed elderly female in no distress. She is alert and oriented without any focal deficits. Her heart is irregular, her lungs are clear. Her abdomen soft nontender with normoactive bowel sounds in all 4 quadrants. Radial pulses are +3. Femoral pulses are +2. Lower extremity distal pulses are +2 DP, +1 PT. She has a brisk capillary refill and no sign of distal ischemia. She does continue to have an ulceration to theplantar aspect of her first metatarsal on the left foot. ASSESSMENT: _ PLAN: _ 1 ) _peripheral arterial disease Patient continues to have a nonhealing wound to the left foot, and recently was hospitalized with possible bacteremia per patient. These records are not available for my review. We recommend that shefollow with her machine repairman for further recommendations regarding the foot wound. At this point her arteries are patent and optimized. We recommend that she return here in another 6 months for reevaluation with an ultrasound prior to that visit. She is advised to call with any other questions. Thank you for letting us participate in the care of this patient. Electronic Signature on File CC: Moise Reed DO [facility] [address] [facility] [address] * Electronically Reviewed/Signed by: Emily Araujo PA-C Author Signature Dt/Tm:04/23/2023 12:43 PM [facility] [place] [address] [place] Patient Care team information Care Team Personnel Name: Selin Gambino Amanda Position: Pharmacist Member Role: Pharmacy - Lifetime Name: FAITH Araujo Lynn Position: Physician New Accounts Representative Exempt - Vasc Surg Member Role: Lifetime Relationship Address: Address: [address] [place] [id number] [place] Name: DO Reed Douglas D Position: Referring Member Role: Primary Care Provider Address: Address: [facility] [address] [place], [place] [id number] [place] Care Team Related Persons Name: MACARIO MATIAS Name: MAURY CASTRO
[2023-10-17] MEDS: INSULIN ASPART PER UNIT CHARGE SC SCH ×5 (01:07→20:24)
[2023-10-17] MEDS: ACETAMINOPHEN 325 MG TAB PO PRN ×2 (01:59→16:56)
[2023-10-17] MEDS: LEVOTHYROXINE SODIUM 75 MCG TABLET PO SCH (05:53)
[2023-10-17] MEDS ORDERED: VANCOMYCIN HCL 1,000 MG in SODIUM CHLORIDE 0.9% 250 ML IV SCH (06:00)
[2023-10-17 07:10] LABS: Hematocrit (blood only) 39.8 % (37.0-47.0); Mean Corpuscular Hemoglobin 27.4 pg (25.0-34.0); Mean Corpuscular Hgb Conc 32.7 g/dL (32.0-36.0); Mean Corpuscular Volume 83.8 fL (80.0-100.0); Mean Platelet Volume 10.3 fL (9.4-12.4); Platelet Count 222 K/uL (130-400); RDW Coefficient of Variation 14.8 % (11.5-14.5); Red Blood Count 4.75 M/uL (4.20-5.40); White Blood Count 6.54 K/ul (4.8-10.8)
[2023-10-17 07:35] LABS: BUN Creatinine Ratio 18.3 (10-20); Calcium 8.6 mg/dl (8.6-10.3); Creatinine Clr Calc Pharmacy 29.1 ml/min; Est GFR (African American) 36.3 ml/min; Est GFR (Non-African American) 31.4 ml/min; Potassium 3.6 mmol/L (3.5-5.1)
[2023-10-17 07:41] LABS: Estimated Average Glucose 174 mg/dl; Hemoglobin A1C 7.7 % (4.5-5.6)
[2023-10-17] MEDS: CLOPIDOGREL BISULFATE 75 MG TAB PO SCH (08:24)
[2023-10-17] MEDS: ATORVASTATIN 40 MG TAB PO SCH (08:24)
[2023-10-17] MEDS: CYANOCOBALAMIN (B-12) 500 MCG TABLET PO SCH (08:24)
[2023-10-17] MEDS: CALCIUM CARBONATE 1250MG TAB PO SCH (08:24)
[2023-10-17] MEDS: CHOLECALCIFEROL 1,000 UNITS 25 MCG TAB PO SCH (08:24)
[2023-10-17] MEDS: METOPROLOL SUCC 50MG EXT REL TAB PO SCH (08:25)
[2023-10-17] MEDS: ADVANCED PROBIOTIC 1250 MG CAPSULE PO SCH (08:25)
[2023-10-17] MEDS: PANTOprazole 40 MG TAB PO SCH (08:25)
--- NOTE | 2023-10-17 08:33 | Ultrasound Report ---
BILATERAL LOWER EXTREMITY ARTERIAL DOPPLER ULTRASOUND CLINICAL HISTORY: Non healing wounds. COMPARISON STUDY: No previous studies for comparison. TECHNIQUE: Grayscale, color and duplex Doppler sonography of the arterial systems of both lower extre mities was performed. Ankle brachial indices were not obtained given portable exam. FINDINGS: Moderate atherosclerotic plaque was noted within the lower extremities. No definite elevate d velocities were identified. There was biphasic flow throughout the right lower extremity with the e xception of monophasic flow within the right peroneal and posterior tibial arteries. There was biphas ic flow within the left common femoral and superficial femoral arteries. There was monophasic flow wi thin the left popliteal, anterior tibial, peroneal, posterior tibial arteries. The left dorsalis pedi s was not visualized due to overlying bandages. IMPRESSION: 1. Moderate atherosclerotic plaque within the bilateral lower extremities. No evidence for a hemodyna mically definite stenosis. 2. Monophasic flow within the left calf vessels, as described above. ACT 112: Negative or not required by law. Electronically signed by: Gerald Viera M.D. 10/17/2023 8:31 AM
[2023-10-17] MEDS ORDERED: LANTUS PER UNIT CHARGE SC SCH ×2 (09:00→21:00)
[2023-10-17] MEDS ORDERED: ADVANCED PROBIOTIC 1250 MG CAPSULE PO SCH (09:00)
--- NOTE | 2023-10-17 11:03 | Pharmacy Report ---
Pharmacy PK ABX Note - Date of Service October 17, 2023 - Assessment and Plan Assessment 83 year old F receiving vancomycin and zosyn for treatment of diabetic foot ulcer. Blood cultures pending. Left foot culture (+) GNB. Right toe culture pending. SCr elevated from baseline today, 1.53mg/dL. Day #2 of antimicrobial therapy. Plan Vancomycin * Loading dose: 2000 mg IV x 1 * Maintenance dose: 1000 mg x 1 dose, adjusted to 750mg IV q24h. * Regimen is predicted to achieve target AUC/ALDO of 400-600 mg/L.hr * Will obtain a level around steady state if vancomycin continued. Pharmacy will continue to follow and will adjust dose/frequency as necessary. Thank you. Pharmacy has transitioned to AUC monitoring for vancomycin. AUC/ALDO is the preferred PK/PD target and is associated with decreased risk of nephrotoxicity compared to traditional trough targets.
--- NOTE | 2023-10-17 11:20 | Hospitalist Progress Note ---
Date of Service October 17, 2023 Assessment & Plan (1) Open toe wound: (2) Wound of foot: (3) Diabetes mellitus, type 2: (4) CAD (coronary artery disease): (5) Paroxysmal atrial fibrillation: (6) Hypothyroidism: Plan 83yoF with PMHx significant for DMII, CAD s/p CABG, paroxysmal atrial fibrillation anticoagulated on Eliquis, hypothyroidism, history of MRSA, history of bacteremia, history of left foot surgery with nonhealing wound admitted with a right third toe wound. Diabetic foot wound Patient presenting from home with infection of right third toe. In the ED, afebrile, no leukocytosis, BP stable. reports of fevers on 10/17 No signs of osteomyelitis on x-ray Case discussed with Podiatry Dr. Granado by admissions team- appreciate recs -no plans for surgical intervention -no MRI -continue with IV antibiotics and wound care -wound debrided on 10/16, cultures of the left foot and right toe obtained Received a dose of Vanco in the ED, continue with Zosyn and narrow based on culture results Follow wound cultures left foot wound Cx growing gram negative bacteria right toe wound Cx growing gram negative bacteria Blood Cx x1 growing gram negative bacteria ID consult placed for gram negative bacteremia Wound of Left foot History of left foot surgery 6 years ago with nonhealing wound Continue wound care and dressing changes Lower extremity doppler showed the following: -Moderate atherosclerotic plaque within the bilateral lower extremities. No evidence for a hemodynamically definite stenosis. Continue Plavix and statin, pcp and outpt Vascular follow up Diabetes mellitus, type 2 Hgba1c of 7.7 this visit Lantus and NovoLog per protocol while hospitalized Hold home meds CAD (coronary artery disease) Appears stable, no reports of chest pain Continue statin, Plavix, beta-hyacinth Paroxysmal atrial fibrillation Rate controlled on metoprolol Anticoagulated on Eliquis Hypothyroidism Chronic, stable Continue levothyroxine Diet: DMII, HH DVT PROPHYLAXIS: On Eliquis CODE STATUS: Full code Admission and Anticipated Discharge Date Admission Date: October 16, 2023 Subjective Pt seen in the AM, was under many blankets. Stated that she was very cold. States that she had some nausea as well that has resolved. Otherwise denied acute concerns. Review of Systems Review of Systems: All systems reviewed & are unremarkable except as noted in Subjective Physical Exam Physical Exam: General: Alert, oriented. No acute distress Skin: Right third toe with noted bandage, erythema surrounding Psych: Appropriate mood and affect Neuro: No gross deficits HEENT: NC/AT Chest: Nontender to palpation. CV: RRR Resp: Breath sounds clear bilaterally, no increased effort of breathing. Abdomen: Soft, nontender, nondistended. Extremities: No edema in lower extremities bilaterally. Results & Data Results & Data Vital Signs (Past 12 Hours) Vital Signs Temp Pulse Pulse Resp BP Pulse Ox O2 Del Method 10/17/23 07:45 36.8 C 98 H 18 109/64 95 Room Air 10/17/23 05:17 37.1 C 104 H 18 107/64 93 Room Air 10/17/23 00:13 37.0 C 102 H 134/67
[2023-10-17 11:33] LABS: A calco-baum cmplx NotReported Not Detected (NotDetected); Bact fragilis Not Reported Not Detected (NotDetected); Blood Culture Id Panel See PCR Comment (NotDetected); C auris Not Reported Not Detected (NotDetected); CTX-M Resistant Gene Not Detected (NotDetected); Calbicans Not Reported Not Detected (NotDetected); Candida glabrata Not Reported Not Detected (NotDetected); Candida krusei Not Reported Not Detected (NotDetected); Cneoformans/gatti Not Reported Not Detected (NotDetected); Cparapsilosis Not Reported Not Detected (NotDetected); E cloacae compx Not Reported Not Detected (NotDetected); Efaecalis Not Reported Not Detected (NotDetected); Efaecium Not Reported Not Detected (NotDetected); Enterobacterales Not Reported DETECTED (NotDetected); Escherichia coli Not Reported Not Detected (NotDetected); H influenzae Not Reported Not Detected (NotDetected); IMP Resistant Gene Not Detected (NotDetected); K aerogenes Not Reported Not Detected (NotDetected); KPC Resistant Gene Not Detected (NotDetected); Koxytoca Not Reported Not Detected (NotDetected); Kpneumoniae grp Not Reported Not Detected (NotDetected); Lmonocyt Not Reported Not Detected (NotDetected); N meningitidis Not Reported Not Detected (NotDetected); NDM Resistant Gene Not Detected (NotDetected); OXA 48 Like Resistant Gene Not Detected (NotDetected); P aeruginosa Not Reported Not Detected (NotDetected); Proteus spp Not Reported DETECTED (NotDetected); Salmonella spp Not Reported Not Detected (NotDetected); Smarcescens Not Reported Not Detected (NotDetected); Staph lugdunensis Not Reported Not Detected (NotDetected); Staph spp. Not Reported Not Detected (NotDetected); Staphaureus Not Reported Not Detected (NotDetected); Staphepi Not Reported Not Detected (NotDetected); Stenmaltophilia Not Reported Not Detected (NotDetected); Strep agal(GrpB) Not Reported Not Detected (NotDetected); Strep pneum Not Reported Not Detected (NotDetected); Strep pyog (GrpA) Not Reported Not Detected (NotDetected); Strep spp Not Reported Not Detected (NotDetected); VIM Resistant Gene Not Detected (NotDetected)
[2023-10-17] MEDS: SODIUM CHLORIDE 0.9% 1,000 ML IV SCH (11:36)
[2023-10-17 11:38] LABS: Enterobacterales DETECTED (NotDetected); Proteus species DETECTED (NotDetected)
--- NOTE | 2023-10-17 13:26 | Pharmacy Report ---
Pharmacy Glycemic Short Note 2 - Date of Service October 17, 2023 - Glycemic Short BSG Results (Last 24 hours): 10/16/23 10/16/23 10/17/23 14:33 23:16 04:41 Glucose 107 H POC Glucose 95 191 H 10/17/23 10/17/23 10/17/23 06:08 07:53 12:15 Glucose 187 H POC Glucose 162 H 218 H OUTPATIENT ANTIDIABETIC REGIMEN: * Tresiba 30 units SC BID * Ozempic 0.25 mg SC weekly on Mondays HbA1c: 7.7% (10/17/23) ASSESSMENT: * WHITNEY is an 83 year old female who presented to ED on 10/16 due to infection of right third toe * Pertinent PMH includes T2DM, history of nonhealing wounds, CAD, and Afib * Reasonable outpatient glycemic control based on HbA1c < 8% in patient > 80 years of age * Converting home basal to 50/50 basal/bolus split = basal 15 units BID and Novolog CF of 25 and carb ratio of 9 * Will ~aim for this with initial insulin dosing * Diet ordered, no plans for surgical intervention at this time PLAN FOR INPATIENT GLYCEMIC CONTROL: * Basal insulin * Lantus 10 units SQ x 1 this AM * Lantus 10-20 units SC HS x 1 * Reassess in AM * Bolus insulin * NovoLog per scale ACHS or Q6hrs while NPO * Goal Range: Low 110 mg/dL - High 140 mg/dL * Correction Factor: 25 mg/dL/unit * Nutritional / Prandial insulin per carb ratio of 1 unit per 8 grams CHO consumed
[2023-10-17] MEDS ORDERED: NON-FORMULARY MEDICATION (Potassium Gluconate 595 mg (99 mg) Tablet Extended Release) PO SCH (16:30)
--- NOTE | 2023-10-17 21:52 | Orthopedic Progress Note ---
Date of Service October 17, 2023 Assessment & Plan (1) Wound of foot: Plan: Patient seen at bedside in room W9 for right third toe and left foot ulcers. A thorough evaluation of wounds was done in detail. Erythema resolving. Awaiting wound cultures and sensitives. Wounds cleansed with Betadine followed by normal saline. Dry, sterile, dressing applied. Will continue to follow while in house. (2) Open toe wound: (3) Diabetes mellitus, type 2: Admission and Anticipated Discharge Date Admission Date: October 16, 2023 Subjective [facility] has no complaints. Review of Systems Review of Systems: All systems reviewed & are unremarkable except as noted in Subjective Physical Exam Constitutional: well developed, well nourished, cooperative and comfortable Eyes: normal visual phillips by confrontation Neck: normal visual inspection and trachea midline Respiratory: normal respiratory effort Cardiovascular: Rate/Rhythm: regular rate and regular rhythm Vessels: posterior tibial pulses present and dorsalis pedis pulses present Musculoskeletal: Extremities: extremities normal to inspection Skin: + ulcer (Right 3rd toe full thickness, L eft sub met 1 full thickness) Neurologic: moves all extremities (Absent epicritic sensation) Psychiatric: Orientation: alert and oriented x 3 Results & Data Vital Signs (Past 12 Hours) Vital Signs Temp Pulse Resp BP Pulse Ox O2 Del Method 10/17/23 21:13 37 C 85 18 108/60 91 Room Air 10/17/23 18:09 36.7 C 10/17/23 17:00 38.4 C H 10/17/23 15:00 37.1 C 88 18 138/71 95 Room Air
[2023-10-18] MEDS: SODIUM CHLORIDE 0.9% 1,000 ML IV SCH (00:53)
[2023-10-18] MEDS: PIPERACILLIN/TAZOBACTAM 4.5 GM in DEXTROSE 5% MINI-B 100 ML IV SCH ×3 (00:54→16:13)
[2023-10-18] MEDS: LEVOTHYROXINE SODIUM 75 MCG TABLET PO SCH (05:18)
[2023-10-18] MEDS: ACETAMINOPHEN 325 MG TAB PO PRN (05:24)
[2023-10-18] MEDS ORDERED: VANCOMYCIN HCL 750 MG in SODIUM CHLORIDE 0.9% 250 ML IV SCH (06:00)
[2023-10-18] MEDS ORDERED: Nursing to Pharmacy Communication PRN (06:24)
[2023-10-18] MEDS ORDERED: COUGH DROP (SUGAR FREE) LOZ 24 LOZ/1 BOX BUCCAL PRN (06:29)
[2023-10-18 07:19] LABS: Basophils # (auto) 0.05 K/uL (0.00-0.20); Basophils % (auto) 0.8 %; Eosinophils # (auto) 0.14 K/uL (0.00-0.50); Eosinophils % (auto) 2.1 %; Hematocrit (blood only) 38.6 % (37.0-47.0); Immature Granulocytes # (auto) 0.02 K/uL (0.01-0.20); Immature Granulocytes % (auto) 0.3 %; Lymphocytes # (auto) 1.05 K/uL (1.20-3.40); Lymphocytes % (auto) 16.1 %; Mean Corpuscular Hemoglobin 27.7 pg (25.0-34.0); Mean Corpuscular Hgb Conc 33.7 g/dL (32.0-36.0); Mean Corpuscular Volume 82.1 fL (80.0-100.0); Mean Platelet Volume 10.4 fL (9.4-12.4); Monocytes # (auto) 0.57 K/uL (0.11-0.59); Monocytes % (auto) 8.7 %; Neutrophils # (auto) 4.69 K/uL (1.40-6.50); Platelet Count 202 K/uL (130-400); White Blood Count 6.52 K/ul (4.8-10.8)
[2023-10-18 07:40] LABS: Total Protein 6.4 gm/dl (6.0-8.3)
[2023-10-18 07:41] LABS: Albumin Globulin Ratio 1.1 (0.9-2); Albumin Level 3.3 gm/dl (3.4-5.0); Bilirubin,Total 0.9 mg/dl (0.2-1.0); Calcium 8.3 mg/dl (8.6-10.3); Creatinine Clr Calc Pharmacy 39.3 ml/min; Est GFR (African American) 52.4 ml/min; Est GFR (Non-African American) 45.2 ml/min; Globulin 3.1 gm/dl (2.5-4.0); Magnesium 1.5 mg/dl (1.7-2.4); Phosphorus 2.4 mg/dl (2.5-4.9); Potassium 3.5 mmol/L (3.5-5.1)
[2023-10-18] MEDS: INSULIN ASPART PER UNIT CHARGE SC SCH ×4 (09:03→21:26)
[2023-10-18] MEDS: CALCIUM CARBONATE 1250MG TAB PO SCH ×2 (09:05→20:19)
[2023-10-18] MEDS: PANTOprazole 40 MG TAB PO SCH (09:05)
[2023-10-18] MEDS: OMEGA-3 (PURIFIED FISH OIL) 1 GM CAP PO SCH ×2 (09:05→20:18)
[2023-10-18] MEDS: ATORVASTATIN 40 MG TAB PO SCH (09:05)
[2023-10-18] MEDS: ADVANCED PROBIOTIC 1250 MG CAPSULE PO SCH (09:05)
[2023-10-18] MEDS: CYANOCOBALAMIN (B-12) 500 MCG TABLET PO SCH (09:05)
[2023-10-18] MEDS: GABAPENTIN 400 MG CAP PO SCH ×3 (09:06→20:20)
[2023-10-18] MEDS: METOPROLOL SUCC 50MG EXT REL TAB PO SCH (09:06)
[2023-10-18] MEDS: CLOPIDOGREL BISULFATE 75 MG TAB PO SCH (09:07)
[2023-10-18] MEDS: CHOLECALCIFEROL 1,000 UNITS 25 MCG TAB PO SCH (09:07)
[2023-10-18] MEDS: APIXABAN 5 MG TABLET PO SCH ×2 (09:07→20:18)
[2023-10-18] MEDS ORDERED: POTASSIUM PHOS 3 MMOL/1 ML INFUSION IV STA (09:16)
[2023-10-18] MEDS ORDERED: POTASSIUM PHOSPHATE 21 MMOL in SODIUM CHLORIDE 0.9% 500 ML IV ONE (09:30)
[2023-10-18] MEDS: MAGNESIUM SULFATE / D5W 1 GM/100 ML BAG IV SCH ×2 (10:18→12:17)
[2023-10-18] MEDS: LOPERAMIDE HCL 2 MG CAP PO PRN (10:18)
[2023-10-18] MEDS ORDERED: VANCOMYCIN HCL 250 MG in 0.9 % SODIUM CHLORIDE 100 ML IV ONE (11:15)
--- NOTE | 2023-10-18 12:37 | Hospitalist Progress Note ---
Date of Service October 18, 2023 Assessment & Plan (1) Open toe wound: (2) Wound of foot: (3) Diabetes mellitus, type 2: (4) CAD (coronary artery disease): (5) Paroxysmal atrial fibrillation: (6) Hypothyroidism: Plan 83yoF with PMHx significant for DMII, CAD s/p CABG, paroxysmal atrial fibrillation anticoagulated on Eliquis, hypothyroidism, history of MRSA, history of bacteremia, history of left foot surgery with nonhealing wound admitted with a right third toe wound. Diabetic foot wound Patient presenting from home with infection of right third toe. In the ED, afebrile, no leukocytosis, BP stable. reports of fevers on 10/17 No signs of osteomyelitis on x-ray Case discussed with Podiatry Dr. Granado by admissions team- appreciate recs -no plans for surgical intervention -no MRI -continue with IV antibiotics and wound care -wound debrided on 10/16, cultures of the left foot and right toe obtained Received a dose of Vanco in the ED, continue with Vanc and Zosyn and narrow based on culture results Follow wound cultures left foot wound Cx growing pansensitive Proteus and Staph right toe wound Cx growing pansensitive Proteus and Staph Blood Cx x1 growing gram negative bacteria ID consult placed for gram negative bacteremia- will await ID recs for abx for discharge Wound of Left foot History of left foot surgery 6 years ago with nonhealing wound Continue wound care and dressing changes Lower extremity doppler showed the following: -Moderate atherosclerotic plaque within the bilateral lower extremities. No evidence for a hemodynamically definite stenosis. Continue Plavix and statin, pcp and outpt Vascular follow up Diabetes mellitus, type 2 Hgba1c of 7.7 this visit Carlost and NovoLog per protocol while hospitalized Hold home meds CAD (coronary artery disease) Appears stable, no reports of chest pain Continue statin, Plavix, beta-hyacinth Paroxysmal atrial fibrillation Rate controlled on metoprolol Anticoagulated on Eliquis Hypothyroidism Chronic, stable Continue levothyroxine Diet: DMII, HH DVT PROPHYLAXIS: On Eliquis CODE STATUS: Full code Admission and Anticipated Discharge Date Admission Date: October 16, 2023 Subjective Pt seen in the AM. Asking for wound care. Episodes of diarrhea as well, requesting something to help. Review of Systems Review of Systems: All systems reviewed & are unremarkable except as noted in Subjective Physical Exam Physical Exam: General: Alert, oriented. No acute distress Skin: Right third toe with noted bandage, erythema surrounding Psych: Appropriate mood and affect Neuro: No gross deficits HEENT: NC/AT Chest: Nontender to palpation. CV: RRR Resp: Breath sounds clear bilaterally, no increased effort of breathing. Abdomen: Soft, nontender, nondistended. Extremities: No edema in lower extremities bilaterally. Results & Data Results & Data Vital Signs (Past 12 Hours) Vital Signs Temp Pulse Resp BP Pulse Ox O2 Del Method 10/18/23 08:21 37.3 C 80 18 128/67 93 Room Air 10/18/23 07:40 Room Air 10/18/23 06:40 36.8 C 10/18/23 05:20 37.5 C
--- NOTE | 2023-10-18 13:20 | Pharmacy Report ---
Pharmacy Glycemic Short Note 2 - Date of Service October 18, 2023 - Glycemic Short BSG Results (Last 24 hours): 10/17/23 10/17/23 10/18/23 16:46 20:14 06:49 Glucose 98 POC Glucose 101 H 237 H 10/18/23 10/18/23 08:38 11:52 Glucose POC Glucose 87 233 H OUTPATIENT ANTIDIABETIC REGIMEN: * Tresiba 30 units SC BID * Ozempic 0.25 mg SC weekly on Mondays HbA1c: 7.7% (10/17/23) ASSESSMENT: 10/18/23: * BSGs labile yesterday, ranging 101-237 mg/dL w/ reduced fasting BSG today of 87 mg/dL * Given fasting BSG - will hold AM basal and order HS scale only * Carb ratio tightened yesterday, will continue today w/ plan to tighten further tomorrow morning 10/17/23: * WHITNEY is an 83 year old female who presented to ED on 10/16 due to infection of right third toe * Pertinent PMH includes T2DM, history of nonhealing wounds, CAD, and Afib * Reasonable outpatient glycemic control based on HbA1c < 8% in patient > 80 years of age * Converting home basal to 50/50 basal/bolus split = basal 15 units BID and Novolog CF of 25 and carb ratio of 9 * Will ~aim for this with initial insulin dosing * Diet ordered, no plans for surgical intervention at this time PLAN FOR INPATIENT GLYCEMIC CONTROL: * Basal insulin * Lantus 5-15 units SC HS (see EHR for details) * Bolus insulin * NovoLog per scale ACHS or Q6hrs while NPO * Goal Range: Low 110 mg/dL - High 140 mg/dL * Correction Factor: 25 mg/dL/unit * Nutritional / Prandial insulin per carb ratio of 1 unit per 8 grams CHO consumed
[2023-10-18] MEDS ORDERED: LANTUS PER UNIT CHARGE SC SCH (21:00)
[2023-10-19] MEDS: PIPERACILLIN/TAZOBACTAM 4.5 GM in DEXTROSE 5% MINI-B 100 ML IV SCH ×3 (00:54→16:45)
[2023-10-19] MEDS: MELATONIN 3 MG TAB PO PRN ×2 (01:49→21:15)
[2023-10-19] MEDS: LEVOTHYROXINE SODIUM 75 MCG TABLET PO SCH (04:49)
[2023-10-19] MEDS ORDERED: VANCOMYCIN LEVEL ONE (07:00)
[2023-10-19 07:42] LABS: Basophils # (auto) 0.05 K/uL (0.00-0.20); Eosinophils # (auto) 0.29 K/uL (0.00-0.50); Hematocrit (blood only) 38.2 % (37.0-47.0); Hemoglobin 12.8 g/dl (12.0-16.0); Immature Granulocytes # (auto) 0.01 K/uL (0.01-0.20); Immature Granulocytes % (auto) 0.2 %; Lymphocytes # (auto) 1.55 K/uL (1.20-3.40); Lymphocytes % (auto) 32.1 %; Mean Corpuscular Hemoglobin 27.5 pg (25.0-34.0); Mean Corpuscular Hgb Conc 33.5 g/dL (32.0-36.0); Mean Platelet Volume 10.3 fL (9.4-12.4); Monocytes # (auto) 0.48 K/uL (0.11-0.59); Monocytes % (auto) 9.9 %; Neutrophils # (auto) 2.45 K/uL (1.40-6.50); Neutrophils % (auto) 50.8 %; Platelet Count 210 K/uL (130-400); RDW Standard Deviation 45.3 fL (36.4-46.3); Red Blood Count 4.66 M/uL (4.20-5.40); White Blood Count 4.83 K/ul (4.8-10.8)
[2023-10-19 07:45] LABS: Albumin Globulin Ratio 1.1 (0.9-2); Albumin Level 3.4 gm/dl (3.4-5.0); BUN Creatinine Ratio 12.6 (10-20); Bilirubin,Total 0.8 mg/dl (0.2-1.0); Creatinine Clr Calc Pharmacy 40.1 ml/min; Est GFR (African American) 53.6 ml/min; Est GFR (Non-African American) 46.2 ml/min; Globulin 3.1 gm/dl (2.5-4.0); Magnesium 1.9 mg/dl (1.7-2.4); Phosphorus 3.3 mg/dl (2.5-4.9); Potassium 3.7 mmol/L (3.5-5.1); Total Protein 6.5 gm/dl (6.0-8.3)
[2023-10-19] MEDS ORDERED: VANCOMYCIN HCL 1,000 MG in SODIUM CHLORIDE 0.9% 250 ML IV SCH (08:00)
[2023-10-19] MEDS: LANTUS PER UNIT CHARGE SC SCH ×2 (08:48→21:14)
[2023-10-19] MEDS: INSULIN ASPART PER UNIT CHARGE SC SCH ×4 (08:48→21:14)
[2023-10-19] MEDS: GABAPENTIN 400 MG CAP PO SCH ×3 (08:55→20:31)
[2023-10-19] MEDS: CHOLECALCIFEROL 1,000 UNITS 25 MCG TAB PO SCH (08:55)
[2023-10-19] MEDS: CALCIUM CARBONATE 1250MG TAB PO SCH ×2 (08:56→20:31)
[2023-10-19] MEDS: ADVANCED PROBIOTIC 1250 MG CAPSULE PO SCH (08:56)
[2023-10-19] MEDS: CLOPIDOGREL BISULFATE 75 MG TAB PO SCH (08:56)
[2023-10-19] MEDS: METOPROLOL SUCC 50MG EXT REL TAB PO SCH (08:56)
[2023-10-19] MEDS: CYANOCOBALAMIN (B-12) 500 MCG TABLET PO SCH (08:56)
[2023-10-19] MEDS: APIXABAN 5 MG TABLET PO SCH ×2 (08:57→20:31)
[2023-10-19] MEDS: ATORVASTATIN 40 MG TAB PO SCH (08:57)
[2023-10-19] MEDS: OMEGA-3 (PURIFIED FISH OIL) 1 GM CAP PO SCH ×2 (08:57→20:30)
[2023-10-19] MEDS: PANTOprazole 40 MG TAB PO SCH (08:57)
--- NOTE | 2023-10-19 09:54 | Pharmacy Report ---
Pharmacy Glycemic Short Note 2 - Date of Service October 19, 2023 - Glycemic Short BSG Results (Last 24 hours): 10/18/23 10/18/23 10/18/23 11:52 16:33 21:00 Glucose POC Glucose 233 H 108 H 152 H 10/19/23 10/19/23 06:37 08:05 Glucose 113 H POC Glucose 113 H OUTPATIENT ANTIDIABETIC REGIMEN: * Tresiba 30 units SC BID * Ozempic 0.25 mg SC weekly on Mondays * HbA1c: 7.7% (10/17/23) ASSESSMENT: 10/19: * Grazyna received 30 units of insulin yesterday, 10 units basal + 20 units bolus. BSGs were: 66-462-155-152 mg/dL. * Fasting BSG at goal this AM, 113 mg/dL. Believe patient's basal needs will i ncrease now that diet is being well tolerated. Will increase basal today. * Lunchtime BSGs have been significantly elevated compared to others: 218-233 mg/dL. Will tighten Novolog with breakfast only today to see if this better controls lunchtime sugars. 10/18: * BSGs labile yesterday, ranging 101-237 mg/dL w/ reduced fasting BSG today of 87 mg/dL * Given fasting BSG - will hold AM basal and order HS scale only * Carb ratio tightened yesterday, will continue today w/ plan to tighten further tomorrow morning 10/17: * WHITNEY is an 83 year old female who presented to ED on 10/16 due to infection of right third toe * Pertinent PMH includes T2DM, history of nonhealing wounds, CAD, and Afib * Reasonable outpatient glycemic control based on HbA1c < 8% in patient > 80 years of age * Converting home basal to 50/50 basal/bolus split = basal 15 units BID and Novolog CF of 25 and carb ratio of 9 * Will ~aim for this with initial insulin dosing * Diet ordered, no plans for surgical intervention at this time PLAN FOR INPATIENT GLYCEMIC CONTROL: * Hold outpatient Tresiba (converted to Lantus inpatient) and Ozempic * Basal insulin * Lantus 10 units SC BID * Bolus insulin * NovoLog per scale ACHS or Q6hrs while NPO * Goal Range: Low 110 mg/dL - High 140 mg/dL * Breakfast: Correction Factor: 20 mg/dL/unit; Carb ratio of 1 unit per 6 grams CHO consumed * Lunch, Dinner, Bedtime: Correction Factor: 25 mg/dL/unit; Carb ratio of 1 unit per 8 grams CHO consumed
--- NOTE | 2023-10-19 10:27 | Pharmacy Report ---
Pharmacy PK ABX Note - Date of Service October 19, 2023 - Assessment and Plan Assessment 83 year old F receiving Vancomycin and Zosyn for treatment of diabetic foot ulcer. * Day #4 of antimicrobial therapy. * Afebrile. No leukocytosis. SCr at baseline, 1.11 mg/dL today. * 1/4 bottles from blood cultures growing Proteus mirabilis that is zuñiga- sensitive. Repeat blood cultures may be necessary to ensure clearance. Left foot and right third toe culture are both growing zuñiga-sensitive P. mirabilis and MSSA. * Spoke with attending, Dr. Pollard. Recommended discontinuation of Vancomycin and Zosyn given we have sensitivities to organisms growing. Recommended starting Cefazolin with is directed therapy at both organisms. ID was consulted on 10/17/23, still awaiting their recommendations. Per Dr. Pollard: "Ill wait for the ID consult recs". Plan Vancomycin * Current regimen: 1000 mg IV every 24 hours * Random level obtained 10/19/23 resulted as 7.9 mcg/mL. This is subtherapeutic. * Change to 1000 mg IV every 18 hours. Predicted AUC at steady state: 526 mg/L.hr * Repeat random level ordered for: 10/21/23 Zosyn * Continue 4.5 g IV every 8 hours Pharmacy will continue to follow and will adjust dose/frequency as necessary. Thank you. Pharmacy has transitioned to AUC monitoring for vancomycin. AUC/ALDO is the preferred PK/PD target and is associated with decreased risk of nephrotoxicity compared to traditional trough targets.
[2023-10-19 10:39] LABS: Cdiff Toxin B Gene (2yr or >) Positive Cdiff Gene (Neg)
[2023-10-19 11:16] LABS: Cdiff Antigen Positive; Cdiff Toxin A+B Negative Cdiff Toxin (Negative)
--- NOTE | 2023-10-19 13:55 | Hospitalist Progress Note ---
Date of Service October 19, 2023 Assessment & Plan (1) Open toe wound: (2) Wound of foot: (3) Diabetes mellitus, type 2: (4) CAD (coronary artery disease): (5) Paroxysmal atrial fibrillation: (6) Hypothyroidism: Plan 83yoF with PMHx significant for DMII, CAD s/p CABG, paroxysmal atrial fibrillation anticoagulated on Eliquis, hypothyroidism, history of MRSA, history of bacteremia, history of left foot surgery with nonhealing wound admitted with a right third toe wound. Diabetic foot wound Patient presenting from home with infection of right third toe. In the ED, afebrile, no leukocytosis, BP stable. reports of fevers on 10/17 No signs of osteomyelitis on x-ray Case discussed with Podiatry Dr. Granado by admissions team- appreciate recs -no plans for surgical intervention -no MRI -continue with IV antibiotics and wound care -wound debrided on 10/16, cultures of the left foot and right toe obtained Received a dose of Vanco in the ED, continue with Vanc and Zosyn and narrow based on culture results Follow wound cultures left foot wound Cx growing pansensitive Proteus and Staph right toe wound Cx growing pansensitive Proteus and Staph Blood Cx x1 growing Proteus ID consult placed for gram negative bacteremia- will await ID recs for abx for discharge -Recommended obtaining an MRI of the R foot to r/o osteomyelitis- ordered by podiatry -D/c zosyn and Vanc, start IV Rocephin 2g daily -If MRI R foot negative for osteomyelitis, can d/c on oral Levofloxacin 750 mg daily and oral Keflex 500 mg QID to complete a 14 day course from the day of debridement. Wound of Left foot History of left foot surgery 6 years ago with nonhealing wound Continue wound care and dressing changes Lower extremity doppler showed the following: -Moderate atherosclerotic plaque within the bilateral lower extremities. No evidence for a hemodynamically definite stenosis. Continue Plavix and statin, pcp and outpt Vascular follow up Diabetes mellitus, type 2 Hgba1c of 7.7 this visit Lantus and NovoLog per protocol while hospitalized Hold home meds CAD (coronary artery disease) Appears stable, no reports of chest pain Continue statin, Plavix, beta-hyacinth Paroxysmal atrial fibrillation Rate controlled on metoprolol Anticoagulated on Eliquis Hypothyroidism Chronic, stable Continue levothyroxine Diet: DMII, HH DVT PROPHYLAXIS: On Eliquis CODE STATUS: Full code Admission and Anticipated Discharge Date Admission Date: October 16, 2023 Subjective Pt seen in the AM. States that the diarrhea has improved. Otherwise denied acute concerns. Review of Systems Review of Systems: All systems reviewed & are unremarkable except as noted in Subjective Physical Exam Physical Exam: General: Alert, oriented. No acute distress Psych: Appropriate mood and affect Neuro: No gross deficits HEENT: NC/AT Chest: Nontender to palpation. CV: RRR Resp: Breath sounds clear bilaterally, no increased effort of breathing. Abdomen: Soft, nontender, nondistended. Extremities: No edema in lower extremities bilaterally. Results & Data Results & Data Vital Signs (Past 12 Hours) Vital Signs Temp Pulse Resp BP Pulse Ox O2 Del Method 10/19/23 08:10 36.8 C 74 18 151/88 H 96 Room Air
--- NOTE | 2023-10-19 13:59 | Orthopedic Progress Note ---
Date of Service October 19, 2023 Assessment & Plan (1) Wound of foot: Plan: Patient seen at bedside in room W359-1 for right third toe and left foot ulcers. Order for surgical offloading shoes dispensed. Reviewed cultures and sensitives. MRI Right foot r/o osteomyelitis ordered. MRI will determine duration of antibiotic therapy upon discharge. Wounds cleansed with Betadine followed by normal saline. Dry, sterile, dressing applied. Will continue to follow while in house. (2) Open toe wound: (3) Diabetes mellitus, type 2: Admission and Anticipated Discharge Date Admission Date: October 16, 2023 Subjective Patient seen at bedside in room 359-1. She relates no complaints and is resting comfortably. Review of Systems Review of Systems: All systems reviewed & are unremarkable except as noted in Subjective Physical Exam Constitutional: well developed, well nourished, cooperative and comfortable Eyes: normal visual phillips by confrontation Neck: normal visual inspection and trachea midline Respiratory: normal respiratory effort Cardiovascular: Rate/Rhythm: regular rate and regular rhythm Vessels: posterior tibial pulses present and dorsalis pedis pulses present Musculoskeletal: Extremities: extremities normal to inspection Skin: + ulcer (Right 3rd toe full thickness, L eft sub met 1 full thickness) Neurologic: moves all extremities (Absent epicritic sensation) Psychiatric: Orientation: alert and oriented x 3 Results & Data Vital Signs (Past 12 Hours) Vital Signs Temp Pulse Resp BP Pulse Ox O2 Del Method 10/19/23 08:10 36.8 C 74 18 151/88 H 96 Room Air Diagnostic Findings [address], [place] [address] / Director: Maynor Larkin M.D. Clinical Laboratory Report Name: BROWN DONIS Acct: [id number] Status: ADM IN : 1940 [facility] [place], [place] Date: 10/16/23 Age: 83 Sex: F Dis Date: Loc: Medical/Surgical/Ortho 3 [facility] [place]/Bed: W9 Spec: [id number] Collected: 10/16/23 Received: 10/16/[address]: Brinda Padilla Source: Toe,Right Third OV Order: Ordered: Surf Wnd Cul/Sm Procedure Result Verified Site Gram Stain Final 10/17/23 Gram Stain Result Rare Gram Positive Cocci No WBCs Seen Surface Wound Culture Final 10/19/23 Organism 1 Proteus mirabilis Quantity Moderate Sens Sensitivities to Follow Organism 2 Staphylococcus aureus Quantity Moderate Sens Sensitivities to Follow P mirabili S aureus RX M.I.C. RX M.I.C. --- --------- --- --------- Amox/Clav S <=8/4 Ampicillin S <=8 Amp/Sul S <=8/4 Cefazolin S <=2 Cefepime S <=2 Ceftriaxone S <=1 Ciprofloxacin S <=0.25 Clindamycin R >4 Daptomycin S 1 Ertapenem S <=0.5 Erythromycin R >4 Gentamicin S <=4 Levofloxacin S <=0.5 Meropenem S <=1 Oxacillin S 1 Tetracycline R >8 Tobramycin S <=4 Trimeth/Sulfa S <=2/38 S <=0.5/9.5 Pip/Tazo S <=16 Vancomycin S 2 S = SENSITIVE I = INTERMEDIATE R = RESISTANT
--- NOTE | 2023-10-19 15:04 | Infectious Disease Consult ---
Date of Service October 19, 2023 Telehealth Information I performed this visit using a real-time telehealth connection between my location and the patients location ([facility]). After connecting through interactive tele-video, patient was identified by name and date of and/or wristband check.Patient (or authorized healthcare outreach representative) was informed that this was a telemedicine visit and it was being conducted confidentially over secure lines. My office door was closed and no one else was present in the room with me.Patient (or authorized healthcare outreach representative) provided consent to proceed with the visit, expressed an understanding of privacy and security of the telemedicine visit, and gave permission to have a hospital outreach representative in the room in order to assist with the visit and to conduct portions of the visit, as needed. I informed the patient (or authorized healthcare outreach representative) that I reviewed their record and presented the opportunity for them to ask any questions regarding the visit today. The patient agreed to participate. Assessment & Plan (1) Diabetic infection of right foot: (2) Bacteremia due to Proteus species: (3) Status post debridement: (4) Diabetes mellitus, type 2: Plan - Please discontinue IV vanco and IV piptazo. Start IV ceftriaxone 2 g daily which will cover the proteus and MSSA. - Please obtain an MRI of the Rt foot to investigate for osteomyelitis. If negative, can send out on oral Levofloxacin 750 mg daily and oral Keflex 500 mg QID to complete a 14 day course from the day of debridement. - though the Cdiff PCR pos, the toxin A&B was negative which doesn't warrant treatment. - Thank you for consulting ID. We will continue to follow. History of Present Illness History of Present Illness Mrs. Dale is a 83-year-old woman with medical history of type 2 diabetes, CAD (status post CABG), paroxysmal AFib, hypothyroidism, and history of infected diabetic left foot wounds who was admitted to [facility] on 10/16 because of concerns for infected right 3rd toe. The patient first noticed a small wound on the tip of her right 3rd toe and she consulted with her PCP who cleaned it at the clinic. Over the last several days, the ulcer got worse and red, and eventually turned blackish. She further noticed some drainage from the wound and reported some chills and fever (subjectively). On presentation, she was afebrile and normotensive without tachycardia and was saturating 98% at room air. Her workup was impressive for MARYANNE with elevated creatinine of 1.5 and elevated blood glucose and shortly after admission, her blood culture came back positive for Proteus. She was seen by the orthopedic team who performed a bedside excisional debridement of both right and left foot wounds with cultures so far growing Proteus and staph species from the left foot, and Proteus with staph aureus from the right 3rd toe. Id team was consulted for further recommendations and to help with the management of antibiotics. Allergies Allergy/AdvReac Type Severity Reaction Status Date / Time metformin AdvReac Severe Diarrhea Unverified 10/16/23 17:47 Home Medications Medication Instructions Recorded Confirmed Type atorvastatin 40 mg tablet 40 mg PO QAM 12/30/18 10/16/23 History levothyroxine 75 mcg tablet 75 mcg PO QAM 12/30/18 10/16/23 History acetaminophen 500 mg tablet 500 mg PO QID PRN Pain 01/10/20 10/16/23 History apixaban 5 mg tablet (Eliquis) 5 mg PO BID 01/10/20 10/16/23 History potassium gluconate 595 mg (99 mg) 650 mg PO QDD 01/10/20 10/16/23 History tablet,extended release clopidogrel 75 mg tablet (Plavix) 75 mg PO DAILY #30 tabs 09/05/22 10/16/23 Rx calcium carbonate 600 mg calcium 600 mg PO DAILY 10/16/23 10/16/23 History (1,500 mg) tablet (Calcium) cholecalciferol (vitamin D3) 25 25 mcg PO DAILY 10/16/23 10/16/23 History mcg (1,000 unit) chewable tablet (Vitamin D3) cyanocobalamin (vitamin B-12) 1,000 mcg PO DAILY 10/16/23 10/16/23 History 1,000 mcg tablet (Vitamin B-12) gabapentin 800 mg tablet 800 mg PO TID 10/16/23 10/16/23 History insulin degludec 200 unit/mL (3 30 unit subcut BID 10/16/23 10/16/23 History mL) subcutaneous pen (Tresiba FlexTouch U-200 insulin) lactobacillus combination no.4 3 3,000 mmu cells PO BID 10/16/23 10/16/23 History billion cell capsule (Probiotic) metoprolol succinate 50 mg 50 mg PO QAM 10/16/23 10/16/23 History tablet,extended release 24 hr multivitamin 1 tab PO DAILY 10/16/23 10/16/23 History omega 9-stg-ngp-fish oil 1,200 mg 1 cap PO BID 10/16/23 10/16/23 History (144 mg-216 mg) capsule (Fish Oil) pantoprazole 40 mg tablet,delayed 40 mg PO DAILY 10/16/23 10/16/23 History release semaglutide 0.25 mg or 0.5 mg (2 0.25 mg subcut WK 10/16/23 10/16/23 History mg/3 mL) subcutaneous pen injector (Ozempic) Patient History Medical History (Updated 10/19/23 @ 15:08 by Amy Mcgovern MD) Paroxysmal atrial fibrillation Hx of deep venous thrombosis 15 YR AGO CAD (coronary artery disease) S/P CABG + stent April 2018. Subsequent cath suggested a kink in the HERRERA graft. 6 weeks later cath confirmed nonfunctional segment of graft to the LAD. She is left with residual ischemic burden in her LAD and Dx territories. Osteoarthritis Chronic back pain Hiatal hernia GERD (gastroesophageal reflux disease) Hypothyroidism Diabetes mellitus, type 2 On anticoagulant therapy Per cardio 12/29 OK to hold Eliquis (and Plavix) for one week prior to lap sandy. 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 01/03/2019. History of cardiac cath APRIL 26, 2018. [facility]. History of heart artery stent APRIL 26, 2018. [facility]. History of coronary artery bypass graft X3 VESSELS (APRIL 25, 2018), plus stent placed to RCA. Family History Brother Family history of diabetes mellitus Social History Smoking Status: Never smoker Second Hand Exposure: No; Do You Dip or Chew Tobacco: No; Tobacco Cessation Education Requested by Patient: No Hx Alcohol Use: No Hx Substance Use: No Preferred Language: French Communication Ability: Effective Traffic Or System Dispatcher Required: No Beliefs That Will Affect Care: None Current Living Situation: Spouse Other Information That Helps Us Care for You: No Feels Safe at Home: Yes Assistive Devices: Cane, Walker and Wheelchair Review of Systems Constitutional: no fatigue, and no fever or chills HEENT: no sore throat, no nasal discharge Cardiovascular: no chest pain, or palpitations Respiratory: No shortness of breath or cough Gastrointestinal: No nausea, vomiting, diarrhea or abdominal pain : No dysuria or hesitancy, no urinary discharge Musculoskeletal/Skin: no feet pain Neurologic: no dizziness or headache Physical Exam Couldn't be performed as the consult was conducted via telemed. Results & Data Vital Signs (Past 12 Hours) Vital Signs Temp Pulse Resp BP Pulse Ox O2 Del Method 10/19/23 08:10 36.8 C 74 18 151/88 H 96 Room Air Laboratory Results MICROBIOLOGY: 10/16: 1 of 4 bottles of blood cultures growing Proteus mirabilis 10/16: Left foot wound culture growing Proteus mirabilis and Staph species 10/16: Right 3rd toe wound cultures growing Proteus mirabilis and Staph aureus (MSSA) Diagnostic Findings Xray Rt foot on 10/16: no acute changes Xray Lt foot on 10/16: No acute osseous abnormality. Degenerative and p ostoperative changes. (4) Diabetes mellitus, type 2 Diabetes mellitus complication detail: with other skin ulcer Diabetes mellitus complication status: with skin complications Diabetes mellitus half-way insulin use: unspecified half-way insulin use status Qualified Code(s): E11.622 - Type 2 diabetes mellitus with other skin ulcer; L98.499 - Non-pressure chronic ulcer of skin of other sites with unspecified severity
[2023-10-19] MEDS ORDERED: GADOBUTROL 65ML VIAL IV ONE (19:17)
--- NOTE | 2023-10-19 20:10 | Magnetic Resonance Report ---
Exam(s): MRI RIGHT FOOT W/WO Contrast IV Amt: 8.5cc gadavist EXAM: MR Right Lower Extremity Without and With Intravenous Contrast, Foot CLINICAL HISTORY: Reason for exam: rule out right third toe osteomyelitis. TECHNIQUE: Multiplanar magnetic resonance images of the right foot without and with intravenous contrast. CONTRAST: Patient received 8.5cc gadavist of IV contrast COMPARISON: No relevant prior studies available. FINDINGS: Muscles: Atrophy of the regional flexor and accessory musculature. Fluid: Moderate third intermetatarsal bursitis. Mild fourth intermetatarsal bursitis. Bones/joints: Marrow infiltration and edema in the third digit distal phalanx, consistent with osteomyelitis (series 4 image 14). Mild surrounding subcutaneous edema, correlate for ulceration/wound. No fluid collection or abscess. Severe degenerative change of the first MTP, with a hallux valgus deformity. No acute fracture. No Lisfranc malalignment. IMPRESSION: Marrow infiltration and edema in the third digit distal phalanx, consistent with osteomyelitis (series 4 image 14). Mild surrounding subcutaneous edema, correlate for ulceration/wound. No fluid collection or abscess. Electronically signed by: Jovon Mercer MD 10/19/23 20:09 PM
[2023-10-19] MEDS: cefTRIAXone SODIUM 2,000 MG in DEXTROSE 5 % MINI-B 50 ML IV SCH (20:28)
[2023-10-20] MEDS ORDERED: VANCOMYCIN HCL 1,000 MG in SODIUM CHLORIDE 0.9% 250 ML IV SCH (02:00)
[2023-10-20] MEDS: LEVOTHYROXINE SODIUM 75 MCG TABLET PO SCH (05:04)
[2023-10-20 07:33] LABS: Basophils # (auto) 0.04 K/uL (0.00-0.20); Basophils % (auto) 0.6 %; Eosinophils % (auto) 4.7 %; Hematocrit (blood only) 42.4 % (37.0-47.0); Hemoglobin 13.9 g/dl (12.0-16.0); Immature Granulocytes # (auto) 0.02 K/uL (0.01-0.20); Immature Granulocytes % (auto) 0.3 %; Lymphocytes # (auto) 1.13 K/uL (1.20-3.40); Lymphocytes % (auto) 17.8 %; Mean Corpuscular Hemoglobin 27.1 pg (25.0-34.0); Mean Corpuscular Hgb Conc 32.8 g/dL (32.0-36.0); Mean Corpuscular Volume 82.8 fL (80.0-100.0); Mean Platelet Volume 10.1 fL (9.4-12.4); Monocytes # (auto) 0.45 K/uL (0.11-0.59); Monocytes % (auto) 7.1 %; Neutrophils % (auto) 69.5 %; Platelet Count 259 K/uL (130-400); RDW Coefficient of Variation 14.7 % (11.5-14.5); RDW Standard Deviation 44.5 fL (36.4-46.3); Red Blood Count 5.12 M/uL (4.20-5.40); White Blood Count 6.34 K/ul (4.8-10.8)
[2023-10-20 07:44] LABS: Albumin Level 3.7 gm/dl (3.4-5.0); Bilirubin,Total 0.6 mg/dl (0.2-1.0); Calcium 9.5 mg/dl (8.6-10.3); Magnesium 1.7 mg/dl (1.7-2.4)
[2023-10-20 07:51] LABS: Albumin Globulin Ratio 1.1 (0.9-2); BUN Creatinine Ratio 15.8 (10-20); Est GFR (Non-African American) 51.8 ml/min; Globulin 3.4 gm/dl (2.5-4.0); Phosphorus 3.5 mg/dl (2.5-4.9); Total Protein 7.1 gm/dl (6.0-8.3)
[2023-10-20] MEDS: GABAPENTIN 400 MG CAP PO SCH ×3 (08:10→21:14)
[2023-10-20] MEDS: ADVANCED PROBIOTIC 1250 MG CAPSULE PO SCH (08:11)
[2023-10-20] MEDS: CLOPIDOGREL BISULFATE 75 MG TAB PO SCH (08:11)
[2023-10-20] MEDS: ATORVASTATIN 40 MG TAB PO SCH (08:11)
[2023-10-20] MEDS: OMEGA-3 (PURIFIED FISH OIL) 1 GM CAP PO SCH ×2 (08:11→20:00)
[2023-10-20] MEDS: CALCIUM CARBONATE 1250MG TAB PO SCH ×2 (08:11→20:00)
[2023-10-20] MEDS: CYANOCOBALAMIN (B-12) 500 MCG TABLET PO SCH (08:12)
[2023-10-20] MEDS: CHOLECALCIFEROL 1,000 UNITS 25 MCG TAB PO SCH (08:12)
[2023-10-20] MEDS: METOPROLOL SUCC 50MG EXT REL TAB PO SCH (08:12)
[2023-10-20] MEDS: APIXABAN 5 MG TABLET PO SCH ×2 (08:12→20:00)
[2023-10-20] MEDS: PANTOprazole 40 MG TAB PO SCH (08:12)
[2023-10-20] MEDS: INSULIN ASPART PER UNIT CHARGE SC SCH ×5 (09:05→19:59)
[2023-10-20] MEDS: LANTUS PER UNIT CHARGE SC SCH ×2 (09:05→19:58)
--- NOTE | 2023-10-20 09:31 | Pharmacy Report ---
Pharmacy Glycemic Short Note 2 - Date of Service October 20, 2023 - Glycemic Short BSG Results (Last 24 hours): 10/19/23 10/19/23 10/19/23 12:07 16:12 20:49 Glucose POC Glucose 159 H 125 H 173 H 10/20/23 10/20/23 07:08 07:56 Glucose 115 H POC Glucose 113 H OUTPATIENT ANTIDIABETIC REGIMEN: * Tresiba 30 units SC BID * Ozempic 0.25 mg SC weekly on Mondays * HbA1c: 7.7% (10/17/23) ASSESSMENT: 10/20: * Patient received 38 units of insulin yesterday, 20 units basal + 18 units bolus. BSGs were: 640-915-580-173 mg/dL. * Fasting BSG remained at 113 mg/dL this AM. No change to insulin regimen ne cessary today with stable stressors. 10/19: * Grazyna received 30 units of insulin yesterday, 10 units basal + 20 units bolus. BSGs were: 42-969-738-152 mg/dL. * Fasting BSG at goal this AM, 113 mg/dL. Believe patient's basal needs will increase now that diet is being well tolerated. Will increase basal today. * Lunchtime BSGs have been significantly elevated compared to others: 218-233 mg/dL. Will tighten Novolog with breakfast only today to see if this better controls lunchtime sugars. 10/18: * BSGs labile yesterday, ranging 101-237 mg/dL w/ reduced fasting BSG today of 87 mg/dL * Given fasting BSG - will hold AM basal and order HS scale only * Carb ratio tightened yesterday, will continue today w/ plan to tighten further tomorrow morning 10/17: * WHITNEY is an 83 year old female who presented to ED on 10/16 due to infection of right third toe * Pertinent PMH includes T2DM, history of nonhealing wounds, CAD, and Afib * Reasonable outpatient glycemic control based on HbA1c < 8% in patient > 80 years of age * Converting home basal to 50/50 basal/bolus split = basal 15 units BID and Novolog CF of 25 and carb ratio of 9 * Will ~aim for this with initial insulin dosing * Diet ordered, no plans for surgical intervention at this time PLAN FOR INPATIENT GLYCEMIC CONTROL: * Hold outpatient Tresiba (converted to Lantus inpatient) and Ozempic * Basal insulin * Lantus 10 units SC BID * Bolus insulin * NovoLog per scale ACHS or Q6hrs while NPO * Goal Range: Low 110 mg/dL - High 140 mg/dL * Breakfast: Correction Factor: 20 mg/dL/unit; Carb ratio of 1 unit per 6 grams CHO consumed * Lunch, Dinner, Bedtime: Correction Factor: 25 mg/dL/unit; Carb ratio of 1 unit per 8 grams CHO consumed
[2023-10-20] MEDS: LOPERAMIDE HCL 2 MG CAP PO PRN (12:27)
--- NOTE | 2023-10-20 13:23 | Hospitalist Progress Note ---
Date of Service October 20, 2023 Assessment & Plan (1) Open toe wound: (2) Wound of foot: (3) Diabetes mellitus, type 2: (4) CAD (coronary artery disease): (5) Paroxysmal atrial fibrillation: (6) Hypothyroidism: Plan 83yoF with PMHx significant for DMII, CAD s/p CABG, paroxysmal atrial fibrillation anticoagulated on Eliquis, hypothyroidism, history of MRSA, history of bacteremia, history of left foot surgery with nonhealing wound admitted with a right third toe wound. Diabetic foot wound Patient presenting from home with infection of right third toe. In the ED, afebrile, no leukocytosis, BP stable. reports of fevers on 10/17 No signs of osteomyelitis on x-ray on admission Case discussed with Podiatry Dr. Granado by admissions team- appreciate recs -no plans for surgical intervention on admission -no MRI -continue with IV antibiotics and wound care -wound debrided on 10/16, cultures of the left foot and right toe obtained Received a dose of Vanco in the ED, continue with Vanc and Zosyn and narrow based on culture results Follow wound cultures left foot wound Cx growing pansensitive Proteus and Staph right toe wound Cx growing pansensitive Proteus and Staph Blood Cx x1 growing Proteus ID consult placed for gram negative bacteremia- appreciate recs -Recommended obtaining an MRI of the R foot to r/o osteomyelitis- ordered by podiatry. -MRI R foot 10/19 confirmed osteomyelitis of toe. -Per ID, d/c zosyn and Vanc, start IV Rocephin 2g daily 10/20- MRI results showing osteomyelitis of R 3rd toe discussed with Podiatry, Dr Granado. He advised pt would like amputation of the toe, pt to discuss further with her daughter. Stated he would add to surgical schedule in AM if needed. Dr Granado to discuss with pt in the AM. Wound of Left foot History of left foot surgery 6 years ago with nonhealing wound Continue wound care and dressing changes Lower extremity doppler showed the following: -Moderate atherosclerotic plaque within the bilateral lower extremities. No evidence for a hemodynamically definite stenosis. Continue Plavix and statin, pcp and outpt Vascular follow up Diabetes mellitus, type 2 Hgba1c of 7.7 this visit Lantus and NovoLog per protocol while hospitalized Hold home meds CAD (coronary artery disease) Appears stable, no reports of chest pain Continue statin, Plavix, beta-hyacinth Paroxysmal atrial fibrillation Rate controlled on metoprolol Anticoagulated on Eliquis Hypothyroidism Chronic, stable Continue levothyroxine Diet: DMII, HH DVT PROPHYLAXIS: On Eliquis CODE STATUS: Full code Dispo: PT/OT ordered, home with services. Needs might change if pt decides on amputation. Admission and Anticipated Discharge Date Admission Date: October 16, 2023 Subjective Pt seen in the AM. States that she had a BM that helped and that the diarrhea has improved. Asking about going home. Was not aware that MRI showed osteomyelitis-pt updated. Otherwise denied acute concerns. Review of Systems Review of Systems: All systems reviewed & are unremarkable except as noted in Subjective Physical Exam Physical Exam: General: Alert, oriented. No acute distress Psych: Appropriate mood and affect Neuro: No gross deficits HEENT: NC/AT Chest: Nontender to palpation. CV: RRR Resp: Breath sounds clear bilaterally, no increased effort of breathing. Abdomen: Soft, nontender, nondistended. 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
[2023-10-20] MEDS: cefTRIAXone SODIUM 2,000 MG in DEXTROSE 5 % MINI-B 50 ML IV SCH (20:04)
--- NOTE | 2023-10-20 22:23 | Orthopedic Progress Note ---
Date of Service October 20, 2023 Assessment & Plan (1) Wound of foot: Plan: Patient seen at bedside in room W359-1 for right third toe and left foot ulcers. Reviewed MRI Right foot images and findings (+) osteomyelitis. Discussed treatment of extended duration of antibiotic therapy upon discharge. Patient states she prefers to have osteomyelitis right third toe amputated. She will discuss with daughter and make a decision. Wounds cleansed with Betadine followed by normal saline. Dry, sterile, dressing applied. Will continue to follow while in house. (2) Open toe wound: (3) Diabetes mellitus, type 2: Admission and Anticipated Discharge Date Admission Date: October 16, 2023 Subjective Patient seen and evaluated at bedside room 359-1. She inquires about surgical care for right third toe osteomyelitis. Review of Systems Review of Systems: All systems reviewed & are unremarkable except as noted in Subjective Physical Exam Constitutional: well developed, well nourished, cooperative and comfortable Eyes: normal visual phillips by confrontation Neck: normal visual inspection and trachea midline Respiratory: normal respiratory effort Cardiovascular: Rate/Rhythm: regular rate and regular rhythm Vessels: posterior tibial pulses present and dorsalis pedis pulses present Musculoskeletal: Extremities: extremities normal to inspection Skin: + ulcer (Right 3rd toe full thickness, L eft sub met 1 full thickness) Neurologic: moves all extremities (Absent epicritic sensation) Psychiatric: Orientation: alert and oriented x 3 Results & Data Vital Signs (Past 12 Hours) Vital Signs Temp Pulse Resp BP BP Pulse Ox O2 Del Method 10/20/23 22:09 36.6 C 74 18 117/60 96 Room Air 10/20/23 15:54 36.6 C 70 16 114/64 97 Room Air 10/20/23 10:58 36.7 C 82 14 128/69 95 Room Air Diagnostic Findings [place] [phone] Magnetic Resonance Report Patient: BROWN DONIS Admit Date: 10/16/23 MR#: [id number] Address1: [address] [place] [address] Acct ID:[id number] Address2: Date: 1940 [facility] Zip: [place] [address] Age: 83 Location: 3W Sex: F Room/Bed: [facility] Att Phy: Frida Pollard MD Diagnosis: DIABETIC FOOT WOUND [place] Phy: Moise Reed DO Service Date: 10/19/23 [facility] Phy: Interpreting Phy: Jovon Mercer MDAdmit Phy: Joby Olson MD Ordering Phy: Imer Granado DPM, MS cc: ~ Exam(s): MRI RIGHT FOOT W/WO Contrast IV Amt: 8.5cc gadavist EXAM: MR Right Lower Extremity Without and With Intravenous Contrast, Foot CLINICAL HISTORY: Reason for exam: rule out right third toe osteomyelitis. TECHNIQUE: Multiplanar magnetic resonance images of the right foot without and with intravenous contrast. CONTRAST: Patient received 8.5cc gadavist of IV contrast COMPARISON: No relevant prior studies available. FINDINGS: Muscles: Atrophy of the regional flexor and accessory musculature. Fluid: Moderate third intermetatarsal bursitis. Mild fourth intermetatarsal bursitis. Bones/joints: Marrow infiltration and edema in the third digit distal phalanx, consistent with osteomyelitis (series 4 image 14). Mild surrounding subcutaneous edema, correlate for ulceration/wound. No fluid collection or abscess. Severe degenerative change of the first MTP, with a hallux valgus deformity. No acute fracture. No Lisfranc malalignment. IMPRESSION: Marrow infiltration and edema in the third digit distal phalanx, consistent with osteomyelitis (series 4 image 14). Mild surrounding subcutaneous edema, correlate for ulceration/wound. No fluid collection or abscess. Electronically signed by: Jovon Mercer MD 10/19/23 20:09 PM Dictated: 10/19/232008 Transcribed: 10/19/232008 (3) Diabetes mellitus, type 2 Diabetes mellitus assisted insulin use: unspecified assisted insulin use status Diabetes mellitus complication status: with skin complications Diabetes mellitus complication detail: with other skin ulcer Qualified Code(s): E11.622 - Type 2 diabetes mellitus with other skin ulcer; L98.499 - Non-pressure chronic ulcer of skin of other sites with unspecified severity
[2023-10-21] MEDS: LEVOTHYROXINE SODIUM 75 MCG TABLET PO SCH (05:21)
--- NOTE | 2023-10-21 06:30 | Orthopedic Progress Note ---
Date of Service October 21, 2023 Assessment & Plan (1) Wound of foot: Plan: Patient seen at bedside in room W359-1 for right third toe and left foot ulcers. Reviewed MRI Right foot images and findings (+) osteomyelitis. Patient requests right third toe amputation. Surgical care scheduled for 10/21/23 15:00. (2) Open toe wound: (3) Diabetes mellitus, type 2: Admission and Anticipated Discharge Date Admission Date: October 16, 2023 Subjective Patient seen and evaluated at bedside room 359-1. She requests surgical care for right third toe osteomyelitis. Review of Systems Review of Systems: All systems reviewed & are unremarkable except as noted in Subjective Physical Exam Constitutional: well developed, well nourished, cooperative and comfortable Eyes: normal visual phillips by confrontation Neck: normal visual inspection and trachea midline Respiratory: normal respiratory effort Cardiovascular: Rate/Rhythm: regular rate and regular rhythm Vessels: posterior tibial pulses present and dorsalis pedis pulses present Musculoskeletal: Extremities: extremities normal to inspection Skin: + ulcer (Right 3rd toe full thickness, L eft sub met 1 full thickness) Neurologic: moves all extremities (Absent epicritic sensation) Psychiatric: Orientation: alert and oriented x 3 Results & Data Vital Signs (Past 12 Hours) Vital Signs Temp Pulse Resp BP Pulse Ox O2 Del Method 10/20/23 22:09 36.6 C 74 18 117/60 96 Room Air (3) Diabetes mellitus, type 2 Diabetes mellitus longterm insulin use: unspecified longterm insulin use status Diabetes mellitus complication status: with skin complications Diabetes mellitus complication detail: with other skin ulcer Qualified Code(s): E11.622 - Type 2 diabetes mellitus with other skin ulcer; L98.499 - Non-pressure chronic ulcer of skin of other sites with unspecified severity
[2023-10-21] MEDS: INSULIN ASPART PER UNIT CHARGE SC SCH ×3 (07:30→18:41)
[2023-10-21 07:45] LABS: Basophils # (auto) 0.04 K/uL (0.00-0.20); Basophils % (auto) 0.7 %; Eosinophils # (auto) 0.27 K/uL (0.00-0.50); Eosinophils % (auto) 4.8 %; Hematocrit (blood only) 39.4 % (37.0-47.0); Hemoglobin 13.1 g/dl (12.0-16.0); Immature Granulocytes # (auto) 0.02 K/uL (0.01-0.20); Immature Granulocytes % (auto) 0.4 %; Lymphocytes # (auto) 1.55 K/uL (1.20-3.40); Lymphocytes % (auto) 27.3 %; Mean Corpuscular Hemoglobin 27.2 pg (25.0-34.0); Mean Corpuscular Hgb Conc 33.2 g/dL (32.0-36.0); Mean Corpuscular Volume 81.7 fL (80.0-100.0); Mean Platelet Volume 10.4 fL (9.4-12.4); Monocytes # (auto) 0.43 K/uL (0.11-0.59); Monocytes % (auto) 7.6 %; Neutrophils # (auto) 3.36 K/uL (1.40-6.50); Neutrophils % (auto) 59.2 %; Platelet Count 244 K/uL (130-400); RDW Coefficient of Variation 14.7 % (11.5-14.5); RDW Standard Deviation 43.3 fL (36.4-46.3); Red Blood Count 4.82 M/uL (4.20-5.40); White Blood Count 5.67 K/ul (4.8-10.8)
--- NOTE | 2023-10-21 08:01 | Anesthesiology Consultation ---
Date of Service October 21, 2023 Assessment & Plan Chart Review Chart Review: Acceptable Risk for Surgery and Patient NOT seen in Pre Admission Testing Consults Requested none History Surgery Operation Date: 10/21/23 07:00 Proposed Procedures p Right 3rd Toe Amputation - Imer Granado DPM, MS Height/Weight Height: 5 ft 2 in Weight: 87.2 kg Allergies Allergy/AdvReac Type Severity Reaction Status Date / Time metformin AdvReac Severe Diarrhea Unverified 10/16/23 17:47 Medications Home Medications Medication Instructions Recorded Confirmed Last Taken atorvastatin 40 mg tablet 40 mg PO QAM 12/30/18 10/16/23 10/16/23 levothyroxine 75 mcg tablet 75 mcg PO QAM 12/30/18 10/16/23 10/16/23 acetaminophen 500 mg tablet 500 mg PO QID PRN Pain 01/10/20 10/16/23 09/02/22 apixaban 5 mg tablet (Eliquis) 5 mg PO BID 01/10/20 10/16/23 10/16/23 potassium gluconate 595 mg (99 mg) 650 mg PO QDD 01/10/20 10/16/23 10/15/23 tablet,extended release clopidogrel 75 mg tablet (Plavix) 75 mg PO DAILY #30 tabs 09/05/22 10/16/23 10/16/23 calcium carbonate 600 mg calcium 600 mg PO DAILY 10/16/23 10/16/23 10/16/23 (1,500 mg) tablet (Calcium) cholecalciferol (vitamin D3) 25 25 mcg PO DAILY 10/16/23 10/16/23 10/16/23 mcg (1,000 unit) chewable tablet (Vitamin D3) cyanocobalamin (vitamin B-12) 1,000 mcg PO DAILY 10/16/23 10/16/23 10/16/23 1,000 mcg tablet (Vitamin B-12) gabapentin 800 mg tablet 800 mg PO TID 10/16/23 10/16/23 10/16/23 insulin degludec 200 unit/mL (3 30 unit subcut BID 10/16/23 10/16/23 10/16/23 mL) subcutaneous pen (Tresiba FlexTouch U-200 insulin) lactobacillus combination no.4 3 3,000 mmu cells PO BID 10/16/23 10/16/23 10/16/23 billion cell capsule (Probiotic) metoprolol succinate 50 mg 50 mg PO QAM 10/16/23 10/16/23 10/16/23 tablet,extended release 24 hr multivitamin 1 tab PO DAILY 10/16/23 10/16/23 10/16/23 omega 0-svg-pcd-fish oil 1,200 mg 1 cap PO BID 10/16/23 10/16/23 10/16/23 (144 mg-216 mg) capsule (Fish Oil) pantoprazole 40 mg tablet,delayed 40 mg PO DAILY 10/16/23 10/16/23 10/16/23 release semaglutide 0.25 mg or 0.5 mg (2 0.25 mg subcut WK 10/16/23 10/16/23 10/12/23 mg/3 mL) subcutaneous pen injector ([employer]) Active Medications Generic Name Dose Route Start Last Admin Trade Name Freq PRN Reason Stop Dose Admin Acetaminophen 650 mg 10/16/23 23:07 10/18/23 05:24 Acetaminophen 325 Mg Tab PO 11/15/23 23:06 650 mg Q4H PRN Administration pain/fever Apixaban 5 mg 10/16/23 23:07 10/20/23 20:00 Apixaban 5 Mg Tablet PO 11/15/23 23:06 5 mg BID FRANKIE Administration Atorvastatin Calcium 40 mg 10/17/23 09:00 10/20/23 08:11 Atorvastatin 40 Mg Tab PO 11/16/23 08:59 40 mg QAM FRANKIE Administration Calcium Carbonate 1,250 mg 10/18/23 21:00 10/20/23 20:00 Calcium Carbonate 1250mg Tab PO 11/17/23 20:59 1,250 mg BID FRANKIE Administration Clopidogrel Bisulfate 75 mg 10/17/23 09:00 10/20/23 08:11 Clopidogrel Bisulfate 75 Mg Tab PO 11/16/23 08:59 75 mg DAILY FRANKIE Administration Cyanocobalamin 1,000 mcg 10/17/23 09:00 10/20/23 08:12 Cyanocobalamin (B-12) 500 Mcg Tablet PO 11/16/23 08:59 1,000 mcg DAILY FRANKIE Administration Fish Oil 1 gm 10/16/23 23:07 10/20/23 20:00 [place]-3 (Purified Fish Oil) 1 Gm Cap PO 11/15/23 23:06 1 gm BID FRANKIE Administration Gabapentin 400 mg 10/16/23 23:07 10/20/23 21:14 Gabapentin 400 Mg Cap PO 11/15/23 23:06 400 mg TID FRANKIE Administration Promethazine HCl 6.25 mg/ 50.25 mls @ 201 mls/hr 10/17/23 00:10 10/17/23 17:25 Sodium Chloride IV 11/16/23 00:09 Infused Q6H PRN Infusion Nausea And Vomiting Ceftriaxone Sodium 2,000 mg/ 50 mls @ 100 mls/hr 10/19/23 20:00 10/20/23 20:35 Dextrose IV 10/26/23 19:59 Infused Q24H FRANKIE Infusion Protocol Insulin Aspart 0 units 10/19/23 11:30 10/20/23 19:59 Insulin Aspart Per Unit Charge SC 11/18/23 11:29 1 units TID@1130,1630,2100 [facility] Administration Protocol Insulin Aspart 0 units 10/19/23 07:30 10/21/23 07:30 Insulin Aspart Per Unit Charge SC 11/18/23 07:29 Not Given DAILY@0730 [facility] Protocol Lactobacillus Acidophilus 2 cap 10/17/23 09:00 10/20/23 08:11 Advanced Probiotic 1250 Mg Capsule PO 11/16/23 08:59 2 cap DAILY FRANKIE Administration Levothyroxine Sodium 75 mcg 10/17/23 06:30 10/21/23 05:21 Levothyroxine Sodium 75 Mcg Tablet PO 11/16/23 06:29 75 mcg DAILYBB FRANKIE Administration Loperamide HCl 2 mg 10/18/23 09:47 10/20/23 12:27 Loperamide Hcl 2 Mg Cap PO 11/17/23 09:46 2 mg Q6H PRN Administration Diarrhea Melatonin 3 mg 10/19/23 01:33 10/19/23 21:15 Melatonin 3 Mg Tab PO 11/18/23 01:32 3 mg HS PRN Administration Sleep Menthol 1 ruth 10/18/23 06:29 10/18/23 07:14 Cough Drop (Sugar Free) Ruth 24 Ruth/1 Box BUCCAL 11/17/23 06:28 1 ruth PRN PRN Administration Cough/Sore Throat Metoprolol Succinate 50 mg 10/17/23 09:00 10/20/23 08:12 Metoprolol Succ 50mg Ext Rel Tab PO 11/16/23 08:59 50 mg QAM FRANKIE Administration Pantoprazole Sodium 40 mg 10/17/23 09:00 10/20/23 08:12 Pantoprazole 40 Mg Tab PO 11/16/23 08:59 40 mg DAILY FRANKIE Administration Vitamin D 1,000 units 10/17/23 09:00 10/20/23 08:12 Cholecalciferol 1,000 Units 25 Mcg Tab PO 11/16/23 08:59 1,000 units DAILY FRANKIE Administration Past Medical History Medical History Paroxysmal atrial fibrillation Hx of deep venous thrombosis 15 YR AGO CAD (coronary artery disease) S/P CABG + stent April 2018. Subsequent cath suggested a kink in the HERRERA graft. 6 weeks later cath confirmed nonfunctional segment of graft to the LAD. She is left with residual ischemic burden in her LAD and Dx territories. Osteoarthritis Chronic back pain Hiatal hernia GERD (gastroesophageal reflux disease) Hypothyroidism Diabetes mellitus, type 2 On anticoagulant therapy Per cardio 12/29 OK to hold Eliquis (and Plavix) for one week prior to lap sandy. 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 01/03/2019. History of cardiac cath APRIL 26, 2018. [facility]. History of heart artery stent APRIL 26, 2018. [facility]. History of coronary artery bypass graft X3 VESSELS (APRIL 25, 2018), plus stent placed to RCA. Social History Smoking Status: Never smoker Do You Dip or Chew Tobacco: No Hx Alcohol Use: No Hx Substance Use: No substance use type: prescription drug Physical Exam Vital Signs Last Vital Signs Temp 36.8 C 10/21/23 07:56 Pulse 86 10/21/23 07:56 Resp 16 10/21/23 07:56 BP 114/68 10/21/23 07:56 Pulse Ox 96 10/21/23 07:56 O2 Del Method Room Air 10/21/23 07:56 Testing Laboratory Results 10/21/23 06:27 Hemoglobin A1c 7.7 % (4.5-5.6) H 10/17/23 06:08 10/16/23 18:21 Gram Stain - Final Foot,Left Wound Culture - Final Proteus mirabilis Staphylococcus aureus 10/16/23 Unknown Gram Stain - Final Toe,Right Third Wound Culture - Final Proteus mirabilis Staphylococcus aureus 10/16/23 14:34 Aerobic Blood Culture - Preliminary Blood No growth in Aerobic bottle after 48 hours. Anaerobic Blood Culture - Preliminary Proteus mirabilis 10/16/23 16:04 Aerobic Blood Culture - Preliminary Blood No growth in Aerobic bottle after 48 hours. Anaerobic Blood Culture - Preliminary No growth in Anaerobic bottle after 48 hours. 10/21/23 07:11 POC Glucose 112 H Electrocardiogram Date: 01/03/19 Findings: + NSR @ Echocardiogram Date: 04/01/18 EF: 55-60
[2023-10-21 08:11] LABS: Albumin Level 3.5 gm/dl (3.4-5.0); Bilirubin,Total 0.5 mg/dl (0.2-1.0); Calcium 9.4 mg/dl (8.6-10.3); Creatinine Clr Calc Pharmacy 44.5 ml/min; Est GFR (African American) 60.8 ml/min; Est GFR (Non-African American) 52.4 ml/min; Globulin 3.5 gm/dl (2.5-4.0); Magnesium 1.7 mg/dl (1.7-2.4); Phosphorus 3.5 mg/dl (2.5-4.9); Potassium 3.9 mmol/L (3.5-5.1)
[2023-10-21] MEDS: LANTUS PER UNIT CHARGE SC SCH ×2 (08:27→21:00)
[2023-10-21] MEDS: OMEGA-3 (PURIFIED FISH OIL) 1 GM CAP PO SCH ×2 (08:27→20:58)
[2023-10-21] MEDS: CHOLECALCIFEROL 1,000 UNITS 25 MCG TAB PO SCH (08:27)
[2023-10-21] MEDS: CLOPIDOGREL BISULFATE 75 MG TAB PO SCH (08:27)
[2023-10-21] MEDS: ATORVASTATIN 40 MG TAB PO SCH (08:27)
[2023-10-21] MEDS: APIXABAN 5 MG TABLET PO SCH ×2 (08:28→19:54)
[2023-10-21] MEDS: GABAPENTIN 400 MG CAP PO SCH ×3 (08:28→20:58)
[2023-10-21] MEDS: ADVANCED PROBIOTIC 1250 MG CAPSULE PO SCH (08:28)
[2023-10-21] MEDS: CYANOCOBALAMIN (B-12) 500 MCG TABLET PO SCH (08:28)
[2023-10-21] MEDS: METOPROLOL SUCC 50MG EXT REL TAB PO SCH (08:28)
[2023-10-21] MEDS: CALCIUM CARBONATE 1250MG TAB PO SCH ×2 (08:28→20:58)
[2023-10-21] MEDS: PANTOprazole 40 MG TAB PO SCH (08:29)
[2023-10-21] MEDS ORDERED: Nursing to Pharmacy Communication SCH ×2 (09:15→18:45)
--- NOTE | 2023-10-21 13:44 | Pharmacy Report ---
Pharmacy Glycemic Short Note 2 - Date of Service October 21, 2023 - Glycemic Short BSG Results (Last 24 hours): 10/20/23 10/20/23 10/21/23 16:40 19:48 06:27 Glucose 108 H POC Glucose 96 144 H 10/21/23 10/21/23 07:11 11:58 Glucose POC Glucose 112 H 107 H OUTPATIENT ANTIDIABETIC REGIMEN: * Tresiba 30 units SC BID * Ozempic 0.25 mg SC weekly on Mondays * HbA1c: 7.7% (10/17/23) ASSESSMENT: 10/21: * BSGs 11-124-247-107mg/dL the last 24h. Received 20 units of basal and 24 units of bolus insulin yesterday. * NPO this AM for toe amputation. * Decreased basal by 50% given NPO status. Novolog q6 with 25/8 parameters until diet resumed. 10/20: * Patient received 38 units of insulin yesterday, 20 units basal + 18 units bolus. BSGs were: 651-327-097-173 mg/dL. * Fasting BSG remained at 113 mg/dL this AM. No change to insulin regimen necessary today with stable stressors. 10/19: * Grazyna received 30 units of insulin yesterday, 10 units basal + 20 units bolus. BSGs were: 76-054-052-152 mg/dL. * Fasting BSG at goal this AM, 113 mg/dL. Believe patient's basal needs will increase now that diet is being well tolerated. Will increase basal today. * Lunchtime BSGs have been significantly elevated compared to others: 218-233 mg/dL. Will tighten Novolog with breakfast only today to see if this better controls lunchtime sugars. 10/18: * BSGs labile yesterday, ranging 101-237 mg/dL w/ reduced fasting BSG today of 87 mg/dL * Given fasting BSG - will hold AM basal and order HS scale only * Carb ratio tightened yesterday, will continue today w/ plan to tighten further tomorrow morning 10/17: * WHITNEY is an 83 year old female who presented to ED on 10/16 due to infection of right third toe * Pertinent PMH includes T2DM, history of nonhealing wounds, CAD, and Afib * Reasonable outpatient glycemic control based on HbA1c < 8% in patient > 80 years of age * Converting home basal to 50/50 basal/bolus split = basal 15 units BID and Novolog CF of 25 and carb ratio of 9 * Will ~aim for this with initial insulin dosing * Diet ordered, no plans for surgical intervention at this time PLAN FOR INPATIENT GLYCEMIC CONTROL: * Hold outpatient Tresiba (converted to Lantus inpatient) and Ozempic * Basal insulin * Lantus 5 units SC BID * Bolus insulin * NovoLog per scale ACHS or Q6hrs while NPO * Goal Range: Low 110 mg/dL - High 140 mg/dL * Breakfast: Correction Factor: 20 mg/dL/unit; Carb ratio of 1 unit per 6 grams CHO consumed * Lunch, Dinner, Bedtime: Correction Factor: 25 mg/dL/unit; Carb ratio of 1 unit per 8 grams CHO consumed
[2023-10-21] MEDS ORDERED: ePHEDrine sulfate 50 MG/ML AMP IV PRN (15:05)
[2023-10-21] MEDS ORDERED: fentaNYL citrate PF 100 MCG/2 ML VIAL IV PRN (15:05)
[2023-10-21] MEDS ORDERED: ONDANSETRON INJ 2 MG/ML 2 ML VIAL IV PRN (15:05)
[2023-10-21] MEDS ORDERED: ATROPINE SULFATE 0.1 MG/ML 10ML SYR IV PRN (15:05)
--- NOTE | 2023-10-21 15:30 | Hospitalist Progress Note ---
Date of Service October 21, 2023 Assessment & Plan (1) Open toe wound: (2) Wound of foot: (3) Diabetes mellitus, type 2: (4) CAD (coronary artery disease): (5) Paroxysmal atrial fibrillation: (6) Hypothyroidism: Plan 83yoF with PMHx significant for DMII, CAD s/p CABG, paroxysmal atrial fibrillation anticoagulated on Eliquis, hypothyroidism, history of MRSA, history of bacteremia, history of left foot surgery with nonhealing wound admitted with a right third toe wound. Diabetic foot wound Patient presenting from home with infection of right third toe. In the ED, afebrile, no leukocytosis, BP stable. reports of fevers on 10/17 No signs of osteomyelitis on x-ray on admission Case discussed with Podiatry Dr. Granado by admissions team- appreciate recs -no plans for surgical intervention on admission,no MRI-this was decided on admission and later on changed as below. -continue with IV antibiotics and wound care -wound debrided on 10/16, cultures of the left foot and right toe obtained Received a dose of Vanco in the ED, continue with Vanc and Zosyn and narrow based on culture results Follow wound cultures left foot wound Cx growing pansensitive Proteus and Staph right toe wound Cx growing pansensitive Proteus and Staph Blood Cx x1 growing Proteus ID consult placed for gram negative bacteremia- appreciate recs -Recommended obtaining an MRI of the R foot to r/o osteomyelitis- ordered by podiatry. -MRI R foot 10/19 confirmed osteomyelitis of toe. -Per ID, d/c zosyn and Vanc, start IV Rocephin 2g daily 10/20- MRI results showing osteomyelitis of R 3rd toe discussed with Podiatry, Dr Granado. He advised pt would like amputation of the toe, pt to discuss further with her daughter. Stated he would add to surgical schedule in AM if needed. Remains medically stable without any symptoms She has been agreeable for the toe amputation-she will have amputation of the right third toe this afternoon Wound of Left foot History of left foot surgery 6 years ago with nonhealing wound Continue wound care and dressing changes Lower extremity doppler showed the following: -Moderate atherosclerotic plaque within the bilateral lower extremities. No evidence for a hemodynamically definite stenosis. Continue Plavix and statin, pcp and outpt Vascular follow up Will continue current antibiotic Diabetes mellitus, type 2 Hgba1c of 7.7 this visit Leeann william NovoLog per protocol while hospitalized Hold home meds CAD (coronary artery disease) Appears stable, no reports of chest pain Continue statin, Plavix, beta-hyacinth No acute cardiac symptoms Paroxysmal atrial fibrillation Rate controlled on metoprolol Anticoagulated on Eliquis Rate remains controlled Hypothyroidism Chronic, stable Continue levothyroxine Diet: DMII, HH DVT PROPHYLAXIS: On Eliquis CODE STATUS: Full code Dispo: PT/OT ordered, home with services. Needs might change if pt decides on amputation. Admission and Anticipated Discharge Date Admission Date: October 16, 2023 Subjective 10/21/2023 The patient was seen and examined in medical floor She will have right third toe amputation this afternoon Denies any fever and or chills and the pain is controlled Review of Systems Review of Systems: All systems reviewed and are unremarkable except as noted below Physical Exam Physical Exam: Lying in bed without any acute distress Constitutional: well developed and well nourished; not ill appearing Eyes: PERRL, conjunctivae normal, anicteric sclerae ENMT: external ear and nose normal, oropharynx normal Neck: trachea midline, no thyromegaly Respiratory: no respiratory distress Auscultation: lungs clear to auscultation bilaterally Cardiovascular: Rate/Rhythm: regular rate and regular rhythm; not tachycardic Heart Sounds: normal S1 and normal S2; no murmur Extremities: + edema (Trace edema bilaterally) Gastrointestinal (Abdomen): Inspection/Auscultation: normal bowel sounds; abdomen not distended Percussion/Palpation: abdomen soft; abdomen nontender Musculoskeletal: No acute arthritis involving any joint, right foot is bandaged. Neurologic: normal touch/pain/proprioception and moves all extremities; no focal motor deficits Lymphatic: no cervical or axillary lymphadenopathy Results & Data Results & Data Vital Signs (Past 12 Hours) Vital Signs Temp Pulse Resp BP Pulse Ox O2 Del Method 10/21/23 07:56 36.8 C 86 16 114/68 96 Room Air Diagnostic Findings Short CBC 10/21/23 Range/Units 06:27 WBC 5.67 (4.8-10.8) K/ul Hgb 13.1 (12.0-16.0) g/dl Hct 39.4 (37.0-47.0) % Plt Count 244 (130-400) K/uL BMP 10/21/23 06:27 Sodium 141 Potassium 3.9 Chloride 108 H Carbon Dioxide 24 BUN 15 Creatinine 1.00 Glucose 108 H Calcium 9.4 Liver Function 10/21/23 Range/Units 06:27 Total Bilirubin 0.5 (0.2-1.0) mg/dl AST 47 H (13-39) U/L ALT 36 (7-52) U/L Alkaline Phosphatase 83 (34-104) U/L Albumin 3.5 (3.4-5.0) gm/dl Medications Administered Current Inpatient Medications Acetaminophen (Acetaminophen 325 Mg Tab) 650 mg PO Q4H PRN PRN Reason: pain/fever Stop: 11/15/23 23:06 Last Admin: 10/18/23 05:24 Dose: 650 mg Apixaban (Apixaban 5 Mg Tablet) 5 mg PO BID [facility] Stop: 11/15/23 23:06 Last Admin: 10/21/23 08:28 Dose: 5 mg Atorvastatin Calcium (Atorvastatin 40 Mg Tab) 40 mg PO QAM [facility]ANKIE Stop: 11/16/23 08:59 Last Admin: 10/21/23 08:27 Dose: 40 mg Atropine Sulfate (Atropine Sulfate 0.1 Mg/Ml 10ml Syr) 0.5 mg IV Q1M PRN PRN Reason: PACU Use-HR<40 &/or Bradycardi Stop: 10/21/23 23:05 Calcium Carbonate (Calcium Carbonate 1250mg Tab) 1,250 mg PO BID [facility] Stop: 11/17/23 20:59 Last Admin: 10/21/23 08:28 Dose: 1,250 mg Clopidogrel Bisulfate (Clopidogrel Bisulfate 75 Mg Tab) 75 mg PO DAILY [facility] Stop: 11/16/23 08:59 Last Admin: 10/21/23 08:27 Dose: 75 mg Cyanocobalamin (Cyanocobalamin (B-12) 500 Mcg Tablet) 1,000 mcg PO DAILY [facility] Stop: 11/16/23 08:59 Last Admin: 10/21/23 08:28 Dose: 1,000 mcg Dextrose (Dextrose 50% 50 Ml Syringe) 25 - 50 ml IV UD PRN; Protocol PRN Reason: Hypoglycemia Protocol Stop: 11/15/23 23:06 Ephedrine Sulfate (Ephedrine Sulfate 50 Mg/Ml Amp) 5 mg IV Q5M PRN PRN Reason: PACU Use Only-SBP<90 mmHg Stop: 10/21/23 23:05 Fentanyl Citrate (Fentanyl Citrate Pf 100 Mcg/2 Ml Vial) 25 mcg IV Q5M PRN PRN Reason: PACU Use Only-Pain Stop: 10/21/23 23:05 Fish Oil (Floyd-3 (Purified Fish Oil) 1 Gm Cap) 1 gm PO BID [facility] Stop: 11/15/23 23:06 Last Admin: 10/21/23 08:27 Dose: 1 gm Gabapentin (Gabapentin 400 Mg Cap) 400 mg PO TID [facility] Stop: 11/15/23 23:06 Last Admin: 10/21/23 14:06 Dose: Not Given Glucagon (Glucagon For Inj 1 Mg Vial) 1 mg SQ UD PRN; Protocol PRN Reason: Hypoglycemia Protocol Stop: 11/15/23 23:06 Glucose (Glucose 40% Gel 15 Gm Tube) 15 - 30 gm PO UD PRN; Protocol PRN Reason: Hypoglycemia Protocol Stop: 11/15/23 23:06 Glucose (Glucose 10 Tab/Tube) 4 - 8 tab PO UD PRN; Protocol PRN Reason: Hypoglycemia Treatment Stop: 11/15/23 23:06 Promethazine HCl 6.25 mg/ (Sodium Chloride) 50.25 mls @ 201 mls/hr IV Q6H PRN PRN Reason: Nausea And Vomiting Stop: 11/16/23 00:09 Last Infusion: 10/17/23 17:25 Dose: Infused Ceftriaxone Sodium 2,000 mg/ (Dextrose) 50 mls @ 100 mls/hr IV Q24H [facility]ANK[facility]; Protocol Stop: 10/26/23 19:59 Last Infusion: 10/20/23 20:35 Dose: Infused Insulin Aspart (Insulin Aspart Per Unit Charge) 0 units SC DAILY@0730 [facility]; Protocol Stop: 11/18/23 07:29 Last Admin: 10/21/23 07:30 Dose: Not Given Insulin Aspart (Insulin Aspart Per Unit Charge) 0 units SC Q6 [facility]; Protocol Stop: 11/18/23 11:29 Last Admin: 10/21/23 12:02 Dose: Not Given Insulin Glargine (Lantus Per Unit Charge) 5 units SC BID [facility]; Protocol Stop: 11/18/23 08:59 Last Admin: 10/21/23 08:27 Dose: Not Given Lactobacillus Acidophilus (Advanced Probiotic 1250 Mg Capsule) 2 cap PO DAILY [facility] Stop: 11/16/23 08:59 Last Admin: 10/21/23 08:28 Dose: 2 cap Levothyroxine Sodium (Levothyroxine Sodium 75 Mcg Tablet) 75 mcg PO DAILYBB [facility] Stop: 11/16/23 06:29 Last Admin: 10/21/23 05:21 Dose: 75 mcg Loperamide HCl (Loperamide Hcl 2 Mg Cap) 2 mg PO Q6H PRN PRN Reason: Diarrhea Stop: 11/17/23 09:46 Last Admin: 10/20/23 12:27 Dose: 2 mg Melatonin (Melatonin 3 Mg Tab) 3 mg PO HS PRN PRN Reason: Sleep Stop: 11/18/23 01:32 Last Admin: 10/19/23 21:15 Dose: 3 mg Menthol (Cough Drop (Sugar Free) Ruth 24 Ruth/1 Box) 1 ruth BUCCAL PRN PRN PRN Reason: Cough/Sore Throat Stop: 11/17/23 06:28 Last Admin: 10/18/23 07:14 Dose: 1 ruth Metoprolol Succinate (Metoprolol Succ 50mg Ext Rel Tab) 50 mg PO QAM [facility] Stop: 11/16/23 08:59 Last Admin: 10/21/23 08:28 Dose: 50 mg Miscellaneous (Carbohydrates For Hypoglycemia ) 15 - 30 gm PO UD PRN PRN Reason: Hypoglycemia Protocol Stop: 11/15/23 23:06 Miscellaneous Information (Pharmacy Glycemic Mgmt Consult) 1 each N/A UD PRN PRN Reason: Consult Stop: 11/15/23 23:06 Ondansetron HCl (Ondansetron Inj 2 Mg/Ml 2 Ml Vial) 4 mg IV ONCE PRN PRN Reason: PACU Use Only-Nausea/Vomiting Stop: 10/21/23 23:05 Pantoprazole Sodium (Pantoprazole 40 Mg Tab) 40 mg PO DAILY [facility] Stop: 11/16/23 08:59 Last Admin: 10/21/23 08:29 Dose: 40 mg Vitamin D (Cholecalciferol 1,000 Units 25 Mcg Tab) 1,000 units PO DAILY [facility] Stop: 11/16/23 08:59 Last Admin: 10/21/23 08:27 Dose: 1,000 units (3) Diabetes mellitus, type 2 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
[2023-10-21] MEDS ORDERED: fentaNYL citrate PF 100 MCG/2 ML VIAL ONE (15:32)
[2023-10-21] MEDS ORDERED: PROPOFOL IV EMULSION 10 MG/ML 20 ML VIAL IV ONE ×2 (15:32→16:36)
[2023-10-21] MEDS ORDERED: LIDOCAINE 2% 2 ML VIAL/AMP(20MG/ML) INFIL ONE (15:32)
--- NOTE | 2023-10-21 16:22 | History & Physical Bridge Note ---
Date of Service October 21, 2023 History & Physical Bridge Note I have examined the patient, reviewed the History & Physical and in the interval since the performance of the History & Physical I have noted the following changes of clinical significance: no changes noted
--- NOTE | 2023-10-21 17:27 | Operative Report ---
Post Operative Report Pre & Post Diagnosis Operation Date: 10/21/23 07:00 Pre-Op Diagnosis: Diabetic Foot wound Bilateral Post-Op Diagnosis: Diabetic Foot wound Bilateral I identified the patient and participated in the time-out.: Yes Procedure Operation Date: 10/21/23 07:00 Actual Procedures p Right 3rd Toe Amputation, Right Second, forth and fifth hammertoe correction, Left foot first metatarsal osteotomy, Gastroctendon Achillies lenghtening left(Bilateral) - Imer Granado DPM, MS Surgeon Imer Granado DPM, MS Air Traffic Supervisor None Estimated Blood Loss 3 Findings Consistent with Post-Op Diagnosis n/a Specimens Right third toe - pathology and microbiology Description of Procedure History of present illness: Patient is a type II diabetic, 83 year old female who is seen for treatment of osteomyelitis of the right third toe and non healing left foot submet 1 wound present for 6 years. MRI has shown right third toe osteomyelitis. Patient elects for amputation. There is also concern for wounds developing on distal aspects of contracted 2nd, 4th, and 5th right toes. Patient has prior left second and third toe amputations. We reviewed non healing left foot wound and use of first metatarsal off loading osteotomy and tendon achilles lengthening. I have discussed procedures in detail and postoperative recovery. All potential risks, benefits, complications, alternatives, rehab, potential for incomplete relief of symptoms, need for further surgery, DVT, PE, , persistent pain, swelling, scarring, weakness, neurovascular, wound complications and potential for amputations were discussed with patient. Unwanted outcomes such as, but not limited to were reviewed including under correction, overcorrection, return of deformity, infection. All questions were answered. Patient has decided to proceed with procedure as indicated. 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 Granado Air Traffic Supervisor: None Anesthesia: local with monitored anesthesia care Hemostasis: Pneumatic calf tourniquet right and left Estimated blood loss: minimal Procedure in detail: Under mild sedation the patient was brought in the operating room placed on the operating table in supine position. Pneumatic right and left calf tourniquets were then placed about the patient's right and left calfs. Following IV sedation the right and left foot and ankles were then prepped scrubbed and draped in usual aseptic manner. An Esmarch bandage was utilized to exsanguinate the patient's right foot and the pneumatic right calf tourniquet was then inflated. Attention was then directed to a nonhealing diabetic ulcer on the distal aspect of the right third toe. A fishmouth incision was created utilizing a sharp, sterile, #15 blade. The incision which was deepened through subcutaneous tissue using sharp blunt dissection. Care was taken to identify and retract all vital neurovascular structures. All bleeders were ligated and cauterized necessary. At this time the right third toe was removed at the metatarsal phalangeal joint and placed on the back table. The distal portion of the right third toe was sent to pathology. Copious amounts of sterile normal saline were utilized to flush the incision site. Attention was then directed to the second digit. At this time a using a sharp, sterile #15 blade a transverse flexor tenotomy and capsulotomy was performed to the proximal interphalangeal joint of the distal interphalangeal joint of the second digit of the right foot. Attention was then directed to the fourth digit. At this time a using a sharp, sterile #15 blade a transverse flexor tenotomy and capsulotomy was performed to the proximal interphalangeal joint of the distal interphalangeal joint of the fourth digit of the right foot. Attention was then directed to the fifth digit. At this time a using a sharp, sterile #15 blade a transverse flexor tenotomy and capsulotomy was performed to the proximal interphalangeal joint of the distal interphalangeal joint of the fifth digit of the right foot. The skin was then primarily closed utilizing 4-0 nylon in horizontal suture mattress techniques as well as simple suture closure. Upon completion of the procedure the incision was dressed with Betadine soaked Adaptic followed by sterile compressive dressing consisting of 4 x 4's Brooklyn Kerlix ABD the pne umatic calf tourniquet was deflated and a prompt hyperemic response was noted to digits of the right foot. An Esmarch bandage was utilized to exsanguinate the patient's left foot and the pneumatic left calf tourniquet was then inflated. Attention was directed to the nonhealing wound of the left foot sub metatarsal one. Size of the wound was 2.3 x 2.1 x 0.2 cm pre debridement. A sharp, sterile, #15 blade was used to debride the wound with out incident. There was no signs of infection, no ascending erythema, no significant swelling noted to the wound itself. Post debridement the wound measurements are 2.3 x 2.1 x 0.2 cm. Attention was then directed to the dorsal aspect of the distal first metatarsal. Utilizing a sharp, sterile, #15 blade, a linear longitudinal incision was placed over the distal first metatarsal. Utilizing both sharp and blunt dissection the incision was deepened through subcutaneous tissue with care being taken to identify and retract all neurovascular structures. All bleeders were cauterized as necessary. At this time the dissection was carried down to the first metatarsal head. Utilizing an oscillating bone saw an osteotomy was created at the diaphysis metaphysis junction. The metatarsal head was allowed to float into anatomical alignment with the remaining less metatarsal heads immediately off loading the left foot ulcer. Next attention was directed to the posterior aspect of the patient's left lower extremity. Range of motion at ankle showed inability to dorsiflex past 90 degrees. Two separate tafoya were made with marking pen 3 cm apart along the posterior aspect of the tendo Achilles left lower extremity. Utilizing a sharp sterile 15 in blade a 1 cm incision was placed at 2 locations along the tendo achilles. At this time a sharp sterile 15 deep blade was utilized for the tendo Achilles lengthening. The blade was placed parallel along the long axis of the Achilles tendon entering the tendon at midline then becoming horizontal and exiting medially at most distal and most proximal incision and laterally at central incision site. Range of motion of left ankle now shows ability to dorsiflex past 10 degrees of 90. Each incision site was closed with 4-0 nylon. The pneumatic calf tourniquet was deflated and a prompt hyperemic response was noted to the left foot. The right and left foot and ankle were dressed with Betadine soaked Adaptic followed by 4 x 4's and Brooklyn. An Trevin wrap was then applied. The Patient tolerated the procedure and anesthesia well. She was transferred to recovery room vital signs stable. After a period of postoperative monitoring the patient will be re-admitted to the floor. . I attest to the content of the Intraoperative Record and any orders documented therein. Any exceptions are noted below.
--- NOTE | 2023-10-21 19:29 | Anesthesiology Progress Note ---
Date of Service October 21, 2023 Anesthesia Post Procedure Vital Signs Vital Signs: Temp Pulse Pulse Resp BP BP Pulse Ox 10/21/23 18:50 36.5 C 75 16 155/75 H 95 10/21/23 18:20 36.7 C 63 16 134/69 96 10/21/23 18:00 65 14 106/64 99 10/21/23 17:50 36.5 C 62 16 113/65 96 10/21/23 17:40 63 18 110/65 97 10/21/23 17:30 36.8 C 66 14 103/66 96 10/21/23 15:53 36.9 C 75 16 156/93 H 97 10/21/23 15:39 36.7 C 68 16 143/70 H 95 10/21/23 07:56 36.8 C 86 16 114/68 96 10/20/23 22:09 36.6 C 74 18 117/60 96 O2 Del Method O2 Flow Rate 10/21/23 18:50 Room Air 10/21/23 18:20 Room Air 10/21/23 18:00 Room Air 10/21/23 17:50 Room Air 10/21/23 17:40 Nasal Cannula 2 10/21/23 17:30 Nasal Cannula 2 10/21/23 15:53 Room Air 10/21/23 15:39 Room Air 10/21/23 07:56 Room Air 10/20/23 22:09 Room Air Pain Intensity Right Foot: Pain Intensity: 0 Transfer of Care Handoff Completed per policy Notes Mental Status: alert / awake / arousable and participated in evaluation Patient Amnestic to Procedure: Yes Nausea / Vomiting: adequately controlled Pain: adequately controlled Airway Patency, RR, SpO2: stable & adequate BP & HR: stable & adequate Hydration State: stable & adequate Anesthetic Complications: no major complications apparent and Pt Satisfied with anesthetic care
[2023-10-21] MEDS: cefTRIAXone SODIUM 2,000 MG in DEXTROSE 5 % MINI-B 50 ML IV SCH (20:59)
[2023-10-21] MEDS ORDERED: INSULIN ASPART PER UNIT CHARGE SC SCH (21:00)
[2023-10-21] MEDS: ACETAMINOPHEN 325 MG TAB PO PRN (22:31)
[2023-10-22] MEDS: ACETAMINOPHEN 325 MG TAB PO PRN ×2 (03:14→21:12)
[2023-10-22] MEDS: LEVOTHYROXINE SODIUM 75 MCG TABLET PO SCH (05:41)
[2023-10-22 07:27] LABS: Basophils # (auto) 0.05 K/uL (0.00-0.20); Basophils % (auto) 0.7 %; Eosinophils % (auto) 2.7 %; Hematocrit (blood only) 40.3 % (37.0-47.0); Immature Granulocytes # (auto) 0.04 K/uL (0.01-0.20); Immature Granulocytes % (auto) 0.5 %; Mean Corpuscular Hemoglobin 27.1 pg (25.0-34.0); Mean Corpuscular Hgb Conc 32.3 g/dL (32.0-36.0); Mean Platelet Volume 10.1 fL (9.4-12.4); Monocytes # (auto) 0.58 K/uL (0.11-0.59); Monocytes % (auto) 7.7 %; Neutrophils # (auto) 4.84 K/uL (1.40-6.50); Neutrophils % (auto) 64.4 %; Platelet Count 245 K/uL (130-400); RDW Coefficient of Variation 14.6 % (11.5-14.5); RDW Standard Deviation 44.4 fL (36.4-46.3); White Blood Count 7.51 K/ul (4.8-10.8)
[2023-10-22 07:34] LABS: Albumin Level 3.5 gm/dl (3.4-5.0); BUN Creatinine Ratio 15.3 (10-20); Bilirubin,Total 0.6 mg/dl (0.2-1.0); Calcium 9.6 mg/dl (8.6-10.3); Creatinine Clr Calc Pharmacy 40.1 ml/min; Est GFR (African American) 53.6 ml/min; Est GFR (Non-African American) 46.2 ml/min; Globulin 3.4 gm/dl (2.5-4.0); Magnesium 1.7 mg/dl (1.7-2.4); Phosphorus 3.6 mg/dl (2.5-4.9); Potassium 4.5 mmol/L (3.5-5.1); Total Protein 6.9 gm/dl (6.0-8.3)
[2023-10-22] MEDS: LOPERAMIDE HCL 2 MG CAP PO PRN ×2 (09:29→21:13)
[2023-10-22] MEDS: INSULIN ASPART PER UNIT CHARGE SC SCH ×5 (09:29→21:09)
[2023-10-22] MEDS: GABAPENTIN 400 MG CAP PO SCH ×3 (09:30→21:08)
[2023-10-22] MEDS: OMEGA-3 (PURIFIED FISH OIL) 1 GM CAP PO SCH ×2 (09:30→21:08)
[2023-10-22] MEDS: APIXABAN 5 MG TABLET PO SCH ×2 (09:30→21:07)
[2023-10-22] MEDS: METOPROLOL SUCC 50MG EXT REL TAB PO SCH (09:30)
[2023-10-22] MEDS: ATORVASTATIN 40 MG TAB PO SCH (09:30)
[2023-10-22] MEDS: PANTOprazole 40 MG TAB PO SCH (09:30)
[2023-10-22] MEDS: CLOPIDOGREL BISULFATE 75 MG TAB PO SCH (09:30)
[2023-10-22] MEDS: CHOLECALCIFEROL 1,000 UNITS 25 MCG TAB PO SCH (09:30)
[2023-10-22] MEDS: CYANOCOBALAMIN (B-12) 500 MCG TABLET PO SCH (09:30)
[2023-10-22] MEDS: ADVANCED PROBIOTIC 1250 MG CAPSULE PO SCH (09:30)
[2023-10-22] MEDS: CALCIUM CARBONATE 1250MG TAB PO SCH ×2 (09:30→21:07)
[2023-10-22] MEDS ORDERED: LANTUS PER UNIT CHARGE SC SCH (12:30)
--- NOTE | 2023-10-22 14:30 | Pharmacy Report ---
Pharmacy Glycemic Short Note 2 - Date of Service October 22, 2023 - Glycemic Short BSG Results (Last 24 hours): 10/21/23 10/21/23 10/22/23 15:31 20:16 06:34 Glucose 136 H POC Glucose 91 174 H 10/22/23 10/22/23 07:56 11:49 Glucose POC Glucose 127 H 194 H OUTPATIENT ANTIDIABETIC REGIMEN: * Tresiba 30 units SC BID * Ozempic 0.25 mg SC weekly on Mondays * HbA1c: 7.7% (10/17/23) ASSESSMENT: 10/22: * Patient received total of 7 units of insulin yesterday, of which 5 units were basal insulin (patient NPO for procedure) * Fasting BSG 127 mg/dL - Resumed 5 units basal again this morning, as unclear PO intake will be today. Patient eating breakfast and lunch - plan to add scale for basal insulin at HS time of 5-10 units. Appears patient previously stable on about ~20 units of basal/day so plan to titrate back up today 10/21: * BSGs [phone]/dL the last 24h. Received 20 units of basal and 24 units of bolus insulin yesterday. * NPO this AM for toe amputation. * Decreased basal by 50% given NPO status. Novolog q6 with 25/8 parameters until diet resumed. 10/20: * Patient received 38 units of insulin yesterday, 20 units basal + 18 units bolus. BSGs were: [phone] mg/dL. * Fasting BSG remained at 113 mg/dL this AM. No change to insulin regimen necessary today with stable stressors. 10/19: * Grazyna received 30 units of insulin yesterday, 10 units basal + 20 units bolus. BSGs were: [phone] mg/dL. * Fasting BSG at goal this AM, 113 mg/dL. Believe patient's basal needs will increase now that diet is being well tolerated. Will increase basal today. * Lunchtime BSGs have been significantly elevated compared to others: 218-233 mg/dL. Will tighten Novolog with breakfast only today to see if this better controls lunchtime sugars. 10/18: * BSGs labile yesterday, ranging 101-237 mg/dL w/ reduced fasting BSG today of 87 mg/dL * Given fasting BSG - will hold AM basal and order HS scale only * Carb ratio tightened yesterday, will continue today w/ plan to tighten further tomorrow morning 10/17: * WHITNEY is an 83 year old female who presented to ED on 10/16 due to infection of right third toe * Pertinent PMH includes T2DM, history of nonhealing wounds, CAD, and Afib * Reasonable outpatient glycemic control based on HbA1c < 8% in patient > 80 years of age * Converting home basal to 50/50 basal/bolus split = basal 15 units BID and Novolog CF of 25 and carb ratio of 9 * Will ~aim for this with initial insulin dosing * Diet ordered, no plans for surgical intervention at this time PLAN FOR INPATIENT GLYCEMIC CONTROL: * Hold outpatient Tresiba (converted to Lantus inpatient) and Ozempic * Basal insulin * Lantus 5 units x 1 * Lantus 5-10 units HS and BID thereafter * Bolus insulin * NovoLog per scale ACHS or Q6hrs while NPO * Goal Range: Low 110 mg/dL - High 140 mg/dL * Correction Factor: 25 mg/dL/unit; Carb ratio of 1 unit per 8 grams CHO consumed
--- NOTE | 2023-10-22 15:40 | Hospitalist Progress Note ---
Date of Service October 22, 2023 Assessment & Plan (1) Open toe wound: (2) Wound of foot: (3) Diabetes mellitus, type 2: (4) CAD (coronary artery disease): (5) Paroxysmal atrial fibrillation: (6) Hypothyroidism: Plan 83yoF with PMHx significant for DMII, CAD s/p CABG, paroxysmal atrial fibrillation anticoagulated on Eliquis, hypothyroidism, history of MRSA, history of bacteremia, history of left foot surgery with nonhealing wound admitted with a right third toe wound. Diabetic foot wound Patient presenting from home with infection of right third toe. In the ED, afebrile, no leukocytosis, BP stable. reports of fevers on 10/17 No signs of osteomyelitis on x-ray on admission Case discussed with Podiatry Dr. Granado by admissions team- appreciate recs -no plans for surgical intervention on admission,no MRI-this was decided on admission and later on changed as below. -continue with IV antibiotics and wound care -wound debrided on 10/16, cultures of the left foot and right toe obtained Received a dose of Vanco in the ED, continue with Vanc and Zosyn and narrow based on culture results Follow wound cultures left foot wound Cx growing pansensitive Proteus and Staph right toe wound Cx growing pansensitive Proteus and Staph Blood Cx x1 growing Proteus ID consult placed for gram negative bacteremia- appreciate recs -Recommended obtaining an MRI of the R foot to r/o osteomyelitis- ordered by podiatry. -MRI R foot 10/19 confirmed osteomyelitis of toe. -Per ID, d/c zosyn and Vanc, start IV Rocephin 2g daily 10/20- MRI results showing osteomyelitis of R 3rd toe discussed with Podiatry, Dr Granado. He advised pt would like amputation of the toe, pt to discuss further with her daughter. Stated he would add to surgical schedule in AM if needed. Remains medically stable without any symptoms Status post right third toe amputation and right second, fourth and fifth hammertoe correction on 10/21/2023 The foot remains bandaged and painful with movement Will continue current management Wound of Left foot History of left foot surgery 6 years ago with nonhealing wound Continue wound care and dressing changes Lower extremity doppler showed the following: -Moderate atherosclerotic plaque within the bilateral lower extremities. No evidence for a hemodynamically definite stenosis. Continue Plavix and statin, pcp and outpt Vascular follow up Will continue current antibiotic Status post left foot first metatarsal osteotomy and gastroc tendon Achilles lengthening on left on 10/21/2023 Her left foot remains in bandage and painful with movement Diabetes mellitus, type 2 Hgba1c of 7.7 this visit Lantus and NovoLog per protocol while hospitalized Hold home meds CAD (coronary artery disease) Appears stable, no reports of chest pain Continue statin, Plavix, beta-hyacinth No acute cardiac symptoms Paroxysmal atrial fibrillation Rate controlled on metoprolol Anticoagulated on Eliquis Rate remains controlled Hypothyroidism Chronic, stable Continue levothyroxine Diet: DMII, HH DVT PROPHYLAXIS: On Eliquis CODE STATUS: Full code Dispo: PT/OT ordered, home with services. Needs might change if pt decides on amputation. Admission and Anticipated Discharge Date Admission Date: October 16, 2023 Subjective 10/21/2023 The patient was seen and examined in medical floor She will have right third toe amputation this afternoon Denies any fever and or chills and the pain is controlled 10/22/2023 The patient was seen and examined in medical floor she is status post right third toe amputation, left foot first metatarsal osteotomy and right second, fourth and fifth hammertoe correction and gastrocnemius and Achilles tendons limiting left She has been weak and drowsy today Has been getting pain medication Denies any fever and Review of Systems Review of Systems: All systems reviewed and are unremarkable except as noted below Physical Exam Physical Exam: Lying in bed without any acute distress Constitutional: well developed and well nourished; not ill appearing Eyes: PERRL, conjunctivae normal, anicteric sclerae ENMT: external ear and nose normal, oropharynx normal Neck: trachea midline, no thyromegaly Respiratory: no respiratory distress Auscultation: lungs clear to auscultation bilaterally Cardiovascular: Rate/Rhythm: regular rate and regular rhythm; not tachycardic Heart Sounds: normal S1 and normal S2; no murmur Extremities: + edema (Trace edema bilaterally) Gastrointestinal (Abdomen): Inspection/Auscultation: normal bowel sounds; abdomen not distended Percussion/Palpation: abdomen soft; abdomen nontender Musculoskeletal: Both the feet are bandaged and is painful with movement movement Neurologic: normal touch/pain/proprioception and moves all extremities; no focal motor deficits Lymphatic: no cervical or axillary lymphadenopathy Results & Data Results & Data Vital Signs (Past 12 Hours) Vital Signs Temp Pulse Resp BP BP Pulse Ox O2 Del Method 10/22/23 07:26 36.6 C 69 16 113/65 95 Room Air 10/22/23 05:00 36.7 C 68 18 127/59 L 94 Room Air Laboratory Results Short CBC 10/22/23 Range/Units 06:34 WBC 7.51 (4.8-10.8) K/ul Hgb 13.0 (12.0-16.0) g/dl Hct 40.3 (37.0-47.0) % Plt Count 245 (130-400) K/uL BMP 10/22/23 06:34 Sodium 141 Potassium 4.5 Chloride 107 Carbon Dioxide 27 BUN 17 Creatinine 1.11 Glucose 136 H Calcium 9.6 Liver Function 10/22/23 Range/Units 06:34 Total Bilirubin 0.6 (0.2-1.0) mg/dl AST 43 H (13-39) U/L ALT 35 (7-52) U/L Alkaline Phosphatase 84 (34-104) U/L Albumin 3.5 (3.4-5.0) gm/dl Medications Administered Current Inpatient Medications Acetaminophen (Acetaminophen 325 Mg Tab) 650 mg PO Q4H PRN PRN Reason: pain/fever Stop: 11/15/23 23:06 Last Admin: 10/22/23 03:14 Dose: 650 mg Apixaban (Apixaban 5 Mg Tablet) 5 mg PO BID [facility] Stop: 11/15/23 23:06 Last Admin: 10/22/23 09:30 Dose: 5 mg Atorvastatin Calcium (Atorvastatin 40 Mg Tab) 40 mg PO QAM [facility] Stop: 11/16/23 08:59 Last Admin: 10/22/23 09:30 Dose: 40 mg Calcium Carbonate (Calcium Carbonate 1250mg Tab) 1,250 mg PO BID [facility] Stop: 11/17/23 20:59 Last Admin: 10/22/23 09:30 Dose: 1,250 mg Clopidogrel Bisulfate (Clopidogrel Bisulfate 75 Mg Tab) 75 mg PO DAILY [facility] Stop: 11/16/23 08:59 Last Admin: 10/22/23 09:30 Dose: 75 mg Cyanocobalamin (Cyanocobalamin (B-12) 500 Mcg Tablet) 1,000 mcg PO DAILY [facility] Stop: 11/16/23 08:59 Last Admin: 10/22/23 09:30 Dose: 1,000 mcg Dextrose (Dextrose 50% 50 Ml Syringe) 25 - 50 ml IV UD PRN; Protocol PRN Reason: Hypoglycemia Protocol Stop: 11/15/23 23:06 Fish Oil ([place]-3 (Purified Fish Oil) 1 Gm Cap) 1 gm PO BID [facility] Stop: 11/15/23 23:06 Last Admin: 10/22/23 09:30 Dose: 1 gm Gabapentin (Gabapentin 400 Mg Cap) 400 mg PO TID [facility] Stop: 11/15/23 23:06 Last Admin: 10/22/23 15:01 Dose: 400 mg Glucagon (Glucagon For Inj 1 Mg Vial) 1 mg SQ UD PRN; Protocol PRN Reason: Hypoglycemia Protocol Stop: 11/15/23 23:06 Glucose (Glucose 40% Gel 15 Gm Tube) 15 - 30 gm PO UD PRN; Protocol PRN Reason: Hypoglycemia Protocol Stop: 11/15/23 23:06 Glucose (Glucose 10 Tab/Tube) 4 - 8 tab PO UD PRN; Protocol PRN Reason: Hypoglycemia Treatment Stop: 11/15/23 23:06 Promethazine HCl 6.25 mg/ (Sodium Chloride) 50.25 mls @ 201 mls/hr IV Q6H PRN PRN Reason: Nausea And Vomiting Stop: 11/16/23 00:09 Last Infusion: 10/17/23 17:25 Dose: Infused Ceftriaxone Sodium 2,000 mg/ (Dextrose) 50 mls @ 100 mls/hr IV Q24H [facility]; Protocol Stop: 10/26/23 19:59 Last Infusion: 10/21/23 21:59 Dose: Infused Insulin Aspart (Insulin Aspart Per Unit Charge) 0 units SC ACHS [facility]; Protocol Stop: 11/21/23 07:59 Last Admin: 10/22/23 12:35 Dose: 11 units Insulin Glargine (Lantus Per Unit Charge) 0 units SC BID [facility]; Protocol Stop: 11/21/23 20:59 Lactobacillus Acidophilus (Advanced Probiotic 1250 Mg Capsule) 2 cap PO DAILY [facility] Stop: 11/16/23 08:59 Last Admin: 10/22/23 09:30 Dose: 2 cap Levothyroxine Sodium ([facility]othyroxine S[facility] 75 [facility]g Tablet) [facility]: 11/16/23 06:29 Last Admin: 10/22/23 05:41 Dose: 75 mcg Loperamide HCl (Loperamide Hcl 2 Mg Cap) 2 mg PO Q6H PRN PRN Reason: Diarrhea Stop: 11/17/23 09:46 Last Admin: 10/22/23 09:29 Dose: 2 mg Melatonin (Melatonin 3 Mg Tab) 3 mg PO HS PRN PRN Reason: Sleep Stop: 11/18/23 01:32 Last Admin: 10/19/23 21:15 Dose: 3 mg Menthol (Cough Drop (Sugar Free) Augusto 24 Augusto/1 Box) 1 augusto BUCCAL PRN PRN PRN Reason: Cough/Sore Throat Stop: 11/17/23 06:28 Last Admin: 10/18/23 07:14 Dose: 1 augusto Metoprolol Succinate (Metoprolol Succ 50mg Ext Rel Tab) 50 mg PO QAM [facility] Stop: 11/16/23 08:59 Last Admin: 10/22/23 09:30 Dose: 50 mg Miscellaneous (Carbohydrates For Hypoglycemia ) 15 - 30 gm PO UD PRN PRN Reason: Hypoglycemia Protocol Stop: 11/15/23 23:06 Miscellaneous Information (Pharmacy Glycemic Mgmt Consult) 1 each N/A UD PRN PRN Reason: Consult Stop: 11/15/23 23:06 Pantoprazole Sodium (Pantoprazole 40 Mg Tab) 40 mg PO DAILY [facility] Stop: 11/16/23 08:59 Last Admin: 10/22/23 09:30 Dose: 40 mg Vitamin D (Cholecalciferol 1,000 Units 25 Mcg Tab) 1,000 units PO DAILY [facility] Stop: 11/16/23 08:59 Last Admin: 10/22/23 09:30 Dose: 1,000 units (3) Diabetes mellitus, type 2 Diabetes mellitus half-way insulin use: unspecified terminal superintendent insulin use status Diabetes mellitus complication status: with skin complications Diabetes mellitus complication detail: with other skin ulcer Qualified Code(s): E11.622 - Type 2 diabetes mellitus with other skin ulcer; L98.499 - Non-pressure chronic ulcer of skin of other sites with unspecified severity
--- NOTE | 2023-10-22 20:51 | Orthopedic Progress Note ---
Date of Service October 22, 2023 Assessment & Plan (1) Diabetic infection of right foot: Plan: Patient status post day #1 right and left foot surgery (DOS: 10/21/23). Dry, sterile dressing change with out incident. Patient partial weight bearing to heel bilateral. Will continue to follow while in house. (2) Wound of foot: (3) Status post debridement: Admission and Anticipated Discharge Date Admission Date: October 16, 2023 Subjective Patient status post day #1 right and left foot surgery (DOS: 10/21/23). Patient resting comfortably. She denies pain or discomfort. Review of Systems Review of Systems: All systems reviewed & are unremarkable except as noted in Subjective Physical Exam Constitutional: well developed, well nourished, cooperative and comfortable Eyes: normal visual phillips by confrontation Neck: normal visual inspection Respiratory: normal respiratory effort and + respiratory distress Cardiovascular: Rate/Rhythm: regular rate and regular rhythm Vessels: posterior tibial pulses present and dorsalis pedis pulses present Musculoskeletal: Extremities: + amputation noted (Right third toe, Left second & third toe) Skin: + ulcer (Left foot sub met 1 DFU) and + wound (Right third toe amputation site sutures intact.) Neurologic: moves all extremities (Absent epicritic sensation to Right and Left foot) Psychiatric: Orientation: alert and oriented x 3 Results & Data Vital Signs (Past 12 Hours) Vital Signs Temp Pulse Resp BP Pulse Ox O2 Del Method 10/22/23 15:45 36.7 C 74 16 113/65 98 Room Air
[2023-10-22] MEDS: cefTRIAXone SODIUM 2,000 MG in DEXTROSE 5 % MINI-B 50 ML IV SCH (20:55)
[2023-10-22] MEDS: LANTUS PER UNIT CHARGE SC SCH (21:10)
[2023-10-23] MEDS: LEVOTHYROXINE SODIUM 75 MCG TABLET PO SCH (05:41)
[2023-10-23 07:02] LABS: Basophils # (auto) 0.06 K/uL (0.00-0.20); Basophils % (auto) 0.9 %; Eosinophils # (auto) 0.16 K/uL (0.00-0.50); Eosinophils % (auto) 2.5 %; Hematocrit (blood only) 39.7 % (37.0-47.0); Hemoglobin 13.3 g/dl (12.0-16.0); Immature Granulocytes # (auto) 0.03 K/uL (0.01-0.20); Immature Granulocytes % (auto) 0.5 %; Lymphocytes # (auto) 1.79 K/uL (1.20-3.40); Lymphocytes % (auto) 27.5 %; Mean Corpuscular Hemoglobin 27.6 pg (25.0-34.0); Mean Corpuscular Hgb Conc 33.5 g/dL (32.0-36.0); Mean Corpuscular Volume 82.4 fL (80.0-100.0); Monocytes # (auto) 0.54 K/uL (0.11-0.59); Monocytes % (auto) 8.3 %; Neutrophils # (auto) 3.94 K/uL (1.40-6.50); Neutrophils % (auto) 60.3 %; Platelet Count 273 K/uL (130-400); RDW Coefficient of Variation 14.7 % (11.5-14.5); RDW Standard Deviation 43.8 fL (36.4-46.3); Red Blood Count 4.82 M/uL (4.20-5.40); White Blood Count 6.52 K/ul (4.8-10.8)
[2023-10-23 07:32] LABS: Albumin Level 3.6 gm/dl (3.4-5.0); BUN Creatinine Ratio 19.6 (10-20); Calcium 9.5 mg/dl (8.6-10.3); Creatinine Clr Calc Pharmacy 48.3 ml/min; Est GFR (African American) 67.2 ml/min; Globulin 3.5 gm/dl (2.5-4.0); Magnesium 1.7 mg/dl (1.7-2.4); Phosphorus 3.2 mg/dl (2.5-4.9); Total Protein 7.1 gm/dl (6.0-8.3)
[2023-10-23] MEDS: CYANOCOBALAMIN (B-12) 500 MCG TABLET PO SCH (09:46)
[2023-10-23] MEDS: GABAPENTIN 400 MG CAP PO SCH ×3 (09:46→20:19)
[2023-10-23] MEDS: APIXABAN 5 MG TABLET PO SCH ×2 (09:46→20:19)
[2023-10-23] MEDS: METOPROLOL SUCC 50MG EXT REL TAB PO SCH (09:46)
[2023-10-23] MEDS: CLOPIDOGREL BISULFATE 75 MG TAB PO SCH (09:47)
[2023-10-23] MEDS: CALCIUM CARBONATE 1250MG TAB PO SCH ×2 (09:47→20:19)
[2023-10-23] MEDS: ATORVASTATIN 40 MG TAB PO SCH (09:47)
[2023-10-23] MEDS: PANTOprazole 40 MG TAB PO SCH (09:47)
[2023-10-23] MEDS: CHOLECALCIFEROL 1,000 UNITS 25 MCG TAB PO SCH (09:47)
[2023-10-23] MEDS: OMEGA-3 (PURIFIED FISH OIL) 1 GM CAP PO SCH ×2 (09:47→21:06)
[2023-10-23] MEDS: ADVANCED PROBIOTIC 1250 MG CAPSULE PO SCH (09:47)
[2023-10-23] MEDS: LANTUS PER UNIT CHARGE SC SCH ×2 (09:57→20:26)
[2023-10-23] MEDS: INSULIN ASPART PER UNIT CHARGE SC SCH ×4 (09:57→20:26)
--- NOTE | 2023-10-23 13:51 | Pharmacy Report ---
Pharmacy Glycemic Short Note 2 - Date of Service October 23, 2023 - Glycemic Short BSG Results (Last 24 hours): 10/22/23 10/22/23 10/23/23 16:50 20:02 06:27 Glucose 133 H POC Glucose 83 181 H 10/23/23 10/23/23 07:35 11:19 Glucose POC Glucose 134 H 270 H OUTPATIENT ANTIDIABETIC REGIMEN: * Tresiba 30 units SC BID * Ozempic 0.25 mg SC weekly on Mondays * HbA1c: 7.7% (10/17/23) ASSESSMENT: 10/23: * Consistent BSG trend noted yesterday of [id number], ranging 83-194 mg/dL * Tightened AM Novolog this morning, as lunchtime BSG almost always elevated * Lunch BSG elevated again today, but this is likely, in part, due to AM insulin not being given until ~1000 * CF loosened as to not overcorrect lunchtime BSG 10/22: * Patient received total of 7 units of insulin yesterday, of which 5 units were basal insulin (patient NPO for procedure) * Fasting BSG 127 mg/dL - Resumed 5 units basal again this morning, as unclear PO intake will be today. Patient eating breakfast and lunch - plan to add scale for basal insulin at HS time of 5-10 units. Appears patient previously stable on about ~20 units of basal/day so plan to titrate back up today 10/21: * BSGs [id number]/dL the last 24h. Received 20 units of basal and 24 units of bolus insulin yesterday. * NPO this AM for toe amputation. * Decreased basal by 50% given NPO status. Novolog q6 with 25/8 parameters until diet resumed. Background: * WHITNEY is an 83 year old female who presented to ED on 10/16 due to infection of right third toe * Pertinent PMH includes T2DM, history of nonhealing wounds, CAD, and Afib * Reasonable outpatient glycemic control based on HbA1c < 8% in patient > 80 years of age * Converting home basal to 50/50 basal/bolus split = basal 15 units BID and Novolog CF of 25 and carb ratio of 9 * Will ~aim for this with initial insulin dosing * Diet ordered, no plans for surgical intervention at this time PLAN FOR INPATIENT GLYCEMIC CONTROL: * Hold outpatient Tresiba (converted to Lantus inpatient) and Ozempic * Basal insulin * Lantus 5-10 units SC BID (see EHR for details) * Bolus insulin * NovoLog per scale ACHS or Q6hrs while NPO * Goal Range: Low 110 mg/dL - High 140 mg/dL * Correction Factor: 20 mg/dL/unit; Carb ratio of 1 unit per 6 grams CHO consumed at breakfast * Correction Factor: 30 mg/dL/unit; Carb ratio of 1 unit per 8 grams CHO consumed at lunch, dinner, and HS
--- NOTE | 2023-10-23 17:23 | Hospitalist Progress Note ---
Date of Service October 23, 2023 Assessment & Plan (1) Open toe wound: (2) Wound of foot: (3) Diabetes mellitus, type 2: (4) CAD (coronary artery disease): (5) Paroxysmal atrial fibrillation: (6) Hypothyroidism: Plan 83yoF with PMHx significant for DMII, CAD s/p CABG, paroxysmal atrial fibrillation anticoagulated on Eliquis, hypothyroidism, history of MRSA, history of bacteremia, history of left foot surgery with nonhealing wound admitted with a right third toe wound. Diabetic foot wound Patient presenting from home with infection of right third toe. In the ED, afebrile, no leukocytosis, BP stable. reports of fevers on 10/17 No signs of osteomyelitis on x-ray on admission Case discussed with Podiatry Dr. Granado by admissions team- appreciate recs -no plans for surgical intervention on admission,no MRI-this was decided on admission and later on changed as below. -continue with IV antibiotics and wound care -wound debrided on 10/16, cultures of the left foot and right toe obtained Received a dose of Vanco in the ED, continue with Vanc and Zosyn and narrow based on culture results Follow wound cultures left foot wound Cx growing pansensitive Proteus and Staph right toe wound Cx growing pansensitive Proteus and Staph Blood Cx x1 growing Proteus ID consult placed for gram negative bacteremia- appreciate recs -Recommended obtaining an MRI of the R foot to r/o osteomyelitis- ordered by podiatry. -MRI R foot 10/19 confirmed osteomyelitis of toe. -Per ID, d/c zosyn and Vanc, start IV Rocephin 2g daily 10/20- MRI results showing osteomyelitis of R 3rd toe discussed with Podiatry, Dr Granado. He advised pt would like amputation of the toe, pt to discuss further with her daughter. Stated he would add to surgical schedule in AM if needed. Remains medically stable without any symptoms Status post right third toe amputation and right second, fourth and fifth hammertoe correction on 10/21/2023 The foot remains bandaged and painful with movement Is getting physical therapy for recommendation on discharge Pain is reasonably controlled Wound of Left foot History of left foot surgery 6 years ago with nonhealing wound Continue wound care and dressing changes Lower extremity doppler showed the following: -Moderate atherosclerotic plaque within the bilateral lower extremities. No evidence for a hemodynamically definite stenosis. Continue Plavix and statin, pcp and outpt Vascular follow up Will continue current antibiotic Status post left foot first metatarsal osteotomy and gastroc tendon Achilles lengthening on left on 10/21/2023 Her left foot remains in bandage and painful with movement But the feet are bandaged-she can move the right toes but not the left Diabetes mellitus, type 2 Hgba1c of 7.7 this visit Lantus and NovoLog per protocol while hospitalized Hold home meds CAD (coronary artery disease) Appears stable, no reports of chest pain Continue statin, Plavix, beta-hyacinth No acute cardiac symptoms Paroxysmal atrial fibrillation Rate controlled on metoprolol Anticoagulated on Eliquis Rate remains controlled Hypothyroidism Chronic, stable Continue levothyroxine Diet: DMII, HH DVT PROPHYLAXIS: On Eliquis CODE STATUS: Full code Dispo: PT/OT ordered, home with services. Awaiting PT OT recommendation Admission and Anticipated Discharge Date Admission Date: October 16, 2023 Subjective 10/21/2023 The patient was seen and examined in medical floor She will have right third toe amputation this afternoon Denies any fever and or chills and the pain is controlled 10/22/2023 The patient was seen and examined in medical floor she is status post right third toe amputation, left foot first metatarsal osteotomy and right second, fourth and fifth hammertoe correction and gastrocnemius and Achilles tendons limiting left She has been weak and drowsy today Has been getting pain medication Denies any fever and 10/23/2023 The patient was seen and examined in medical floor Complains to have pain in the feet No fever and or chills and no other significant symptoms Review of Systems Review of Systems: All systems reviewed and are unremarkable except as noted below Physical Exam Physical Exam: Lying in bed without any acute distress Constitutional: well developed and well nourished; not ill appearing Eyes: PERRL, conjunctivae normal, anicteric sclerae ENMT: external ear and nose normal, oropharynx normal Neck: trachea midline, no thyromegaly Respiratory: no respiratory distress Auscultation: lungs clear to auscultation bilaterally Cardiovascular: Rate/Rhythm: regular rate and regular rhythm; not tachycardic Heart Sounds: normal S1 and normal S2; no murmur Extremities: + edema (Trace edema bilaterally) Gastrointestinal (Abdomen): Inspection/Auscultation: normal bowel sounds; abdomen not distended Percussion/Palpation: abdomen soft; abdomen nontender Musculoskeletal: Both of her feet are bandaged. Can move the toes on the right side but not on the left due to pain Neurologic: normal touch/pain/proprioception and moves all extremities; no focal motor deficits Lymphatic: no cervical or axillary lymphadenopathy Results & Data Results & Data Vital Signs (Past 12 Hours) Vital Signs Temp Pulse Pulse Resp BP BP Pulse Ox 10/23/23 14:47 36.7 C 85 17 130/71 93 10/23/23 13:00 10/23/23 11:29 36.5 C 84 15 132/76 92 10/23/23 08:00 36.7 C 82 14 114/68 92 10/23/23 07:36 36.7 C 84 17 114/69 93 O2 Del Method 10/23/23 14:47 Room Air 10/23/23 13:00 Room Air 10/23/23 11:29 Room Air 10/23/23 08:00 Room Air 10/23/23 07:36 Room Air Laboratory Results Short CBC 10/23/23 Range/Units 06:27 WBC 6.52 (4.8-10.8) K/ul Hgb 13.3 (12.0-16.0) g/dl Hct 39.7 (37.0-47.0) % Plt Count 273 (130-400) K/uL BMP 10/23/23 06:27 Sodium 140 Potassium 4.0 Chloride 107 Carbon Dioxide 27 BUN 18 Creatinine 0.92 Glucose 133 H Calcium 9.5 Liver Function 10/23/23 Range/Units 06:27 Total Bilirubin 1.0 (0.2-1.0) mg/dl AST 37 (13-39) U/L ALT 31 (7-52) U/L Alkaline Phosphatase 93 (34-104) U/L Albumin 3.6 (3.4-5.0) gm/dl Medications Administered Current Inpatient Medications Acetaminophen (Acetaminophen 325 Mg Tab) 650 mg PO Q4H PRN PRN Reason: pain/fever Stop: 11/15/23 23:06 Last Admin: 10/22/23 21:12 Dose: 650 mg Apixaban (Apixaban 5 Mg Tablet) 5 mg PO BID [facility] Stop: 11/15/23 23:06 Last Admin: 10/23/23 09:46 Dose: 5 mg Atorvastatin Calcium (Atorvastatin 40 Mg Tab) 40 mg PO QAM [facility] Stop: 11/16/23 08:59 Last Admin: 10/23/23 09:47 Dose: 40 mg Calcium Carbonate (Calcium Carbonate 1250mg Tab) 1,250 mg PO BID [facility] Stop: 11/17/23 20:59 Last Admin: 10/23/23 09:47 Dose: 1,250 mg Clopidogrel Bisulfate (Clopidogrel Bisulfate 75 Mg Tab) 75 mg PO DAILY [facility] Stop: 11/16/23 08:59 Last Admin: 10/23/23 09:47 Dose: 75 mg Cyanocobalamin (Cyanocobalamin (B-12) 500 Mcg Tablet) 1,000 mcg PO DAILY [facility] Stop: 11/16/23 08:59 Last Admin: 10/23/23 09:46 Dose: 1,000 mcg Dextrose (Dextrose 50% 50 Ml Syringe) 25 - 50 ml IV UD PRN; Protocol PRN Reason: Hypoglycemia Protocol Stop: 11/15/23 23:06 Fish Oil ([place]-3 (Purified Fish Oil) 1 Gm Cap) 1 gm PO BID [facility] Stop: 11/15/23 23:06 Last Admin: 10/23/23 09:47 Dose: 1 gm Gabapentin (Gabapentin 400 Mg Cap) 400 mg PO TID [facility] Stop: 11/15/23 23:06 Last Admin: 10/23/23 13:23 Dose: 400 mg Glucagon (Glucagon For Inj 1 Mg Vial) 1 mg SQ UD PRN; Protocol PRN Reason: Hypoglycemia Protocol Stop: 11/15/23 23:06 Glucose (Glucose 40% Gel 15 Gm Tube) 15 - 30 gm PO UD PRN; Protocol PRN Reason: Hypoglycemia Protocol Stop: 11/15/23 23:06 Glucose (Glucose 10 Tab/Tube) 4 - 8 tab PO UD PRN; Protocol PRN Reason: Hypoglycemia Treatment Stop: 11/15/23 23:06 Promethazine HCl 6.25 mg/ (Sodium Chloride) 50.25 mls @ 201 mls/hr IV Q6H PRN PRN Reason: Nausea And Vomiting Stop: 11/16/23 00:09 Last Infusion: 10/17/23 17:25 Dose: Infused Ceftriaxone Sodium 2,000 mg/ (Dextrose) 50 mls @ 100 mls/hr IV Q24H [facility]; Protocol Stop: 10/26/23 19:59 Last Infusion: 10/22/23 21:25 Dose: Infused Insulin Aspart (Insulin Aspart Per Unit Charge) 0 units SC 0730 [facility]; Protocol Stop: 11/21/23 07:59 Last Admin: 10/23/23 09:57 Dose: 10 units Insulin Aspart (Insulin Aspart Per Unit Charge) 0 units SC 1130,1630,2100 [facility]; Protocol Stop: 11/22/23 11:29 Last Admin: 10/23/23 13:21 Dose: 15 units Insulin Glargine (Lantus Per Unit Charge) 0 units SC BID [facility]; Protocol Stop: 11/21/23 20:59 Last Admin: 10/23/23 09:57 Dose: 5 units Lactobacillus Acidophilus (Advanced Probiotic 1250 Mg Capsule) 2 cap PO DAILY [facility] Stop: 11/16/23 08:59 Last Admin: 10/23/23 09:47 Dose: 2 cap Levothyroxine Sodium (Levothyroxine Sodium 75 Mcg Tablet) 75 mcg PO DAILYBB [facility] Stop: 11/16/23 06:29 Last Admin: 10/23/23 05:41 Dose: 75 mcg Loperamide HCl (Loperamide Hcl 2 Mg Cap) 2 mg PO Q6H PRN PRN Reason: Diarrhea Stop: 11/17/23 09:46 Last Admin: 10/22/23 21:13 Dose: 2 mg Melatonin (Melatonin 3 Mg Tab) 3 mg PO HS PRN PRN Reason: Sleep Stop: 11/18/23 01:32 Last Admin: 10/19/23 21:15 Dose: 3 mg Menthol (Cough Drop (Sugar Free) Augusto 24 Augusto/1 Box) 1 augusto BUCCAL PRN PRN PRN Reason: Cough/Sore Throat Stop: 11/17/23 06:28 Last Admin: 10/18/23 07:14 Dose: 1 augusto Metoprolol Succinate (Metoprolol Succ 50mg Ext Rel Tab) 50 mg PO QAM [facility] Stop: 11/16/23 08:59 Last Admin: 10/23/23 09:46 Dose: 50 mg Miscellaneous (Carbohydrates For Hypoglycemia ) 15 - 30 gm PO UD PRN PRN Reason: Hypoglycemia Protocol Stop: 11/15/23 23:06 Miscellaneous Information (Pharmacy Glycemic Mgmt Consult) 1 each N/A UD PRN PRN Reason: Consult Stop: 11/15/23 23:06 Pantoprazole Sodium (Pantoprazole 40 Mg Tab) 40 mg PO DAILY [facility] Stop: 11/16/23 08:59 Last Admin: 10/23/23 09:47 Dose: 40 mg Vitamin D (Cholecalciferol 1,000 Units 25 Mcg Tab) 1,000 units PO DAILY [facility] Stop: 11/16/23 08:59 Last Admin: 10/23/23 09:47 Dose: 1,000 units (3) Diabetes mellitus, type 2 Diabetes mellitus jail insulin use: unspecified jail insulin use status Diabetes mellitus complication status: with skin complications Diabetes mellitus complication detail: with other skin ulcer Qualified Code(s): E11.622 - Type 2 diabetes mellitus with other skin ulcer; L98.499 - Non-pressure chronic ulcer of skin of other sites with unspecified severity
[2023-10-23] MEDS ORDERED: CALCIUM CARBONATE 500 MG CHEWABLE TAB PO PRN (19:33)
[2023-10-23] MEDS: cefTRIAXone SODIUM 2,000 MG in DEXTROSE 5 % MINI-B 50 ML IV SCH (20:18)
[2023-10-24] MEDS: LEVOTHYROXINE SODIUM 75 MCG TABLET PO SCH (06:39)
[2023-10-24] MEDS: CLOPIDOGREL BISULFATE 75 MG TAB PO SCH (07:59)
[2023-10-24] MEDS: PANTOprazole 40 MG TAB PO SCH (07:59)
[2023-10-24] MEDS: CALCIUM CARBONATE 1250MG TAB PO SCH ×2 (07:59→21:20)
[2023-10-24] MEDS: ADVANCED PROBIOTIC 1250 MG CAPSULE PO SCH (08:00)
[2023-10-24] MEDS: ATORVASTATIN 40 MG TAB PO SCH (08:00)
[2023-10-24] MEDS: APIXABAN 5 MG TABLET PO SCH ×2 (08:00→21:19)
[2023-10-24] MEDS: CHOLECALCIFEROL 1,000 UNITS 25 MCG TAB PO SCH (08:00)
[2023-10-24] MEDS: METOPROLOL SUCC 50MG EXT REL TAB PO SCH (08:00)
[2023-10-24] MEDS: GABAPENTIN 400 MG CAP PO SCH ×3 (08:01→21:19)
[2023-10-24] MEDS: CYANOCOBALAMIN (B-12) 500 MCG TABLET PO SCH (08:01)
[2023-10-24] MEDS: INSULIN ASPART PER UNIT CHARGE SC SCH ×4 (09:11→21:48)
[2023-10-24] MEDS: LANTUS PER UNIT CHARGE SC SCH ×2 (09:11→21:54)
[2023-10-24] MEDS: OMEGA-3 (PURIFIED FISH OIL) 1 GM CAP PO SCH ×2 (09:12→21:19)
--- NOTE | 2023-10-24 14:02 | Hospitalist Progress Note ---
Date of Service October 24, 2023 Assessment & Plan (1) Open toe wound: (2) Wound of foot: (3) Diabetes mellitus, type 2: (4) CAD (coronary artery disease): (5) Paroxysmal atrial fibrillation: (6) Hypothyroidism: Plan 83yoF with PMHx significant for DMII, CAD s/p CABG, paroxysmal atrial fibrillation anticoagulated on Eliquis, hypothyroidism, history of MRSA, history of bacteremia, history of left foot surgery with nonhealing wound admitted with a right third toe wound. Diabetic foot wound Patient presenting from home with infection of right third toe. In the ED, afebrile, no leukocytosis, BP stable. reports of fevers on 10/17 No signs of osteomyelitis on x-ray on admission Case discussed with Podiatry Dr. Granado by admissions team- appreciate recs -no plans for surgical intervention on admission,no MRI-this was decided on admission and later on changed as below. -continue with IV antibiotics and wound care -wound debrided on 10/16, cultures of the left foot and right toe obtained Received a dose of Vanco in the ED, continue with Vanc and Zosyn and narrow based on culture results Follow wound cultures left foot wound Cx growing pansensitive Proteus and Staph right toe wound Cx growing pansensitive Proteus and Staph Blood Cx x1 growing Proteus ID consult placed for gram negative bacteremia- appreciate recs -Recommended obtaining an MRI of the R foot to r/o osteomyelitis- ordered by podiatry. -MRI R foot 10/19 confirmed osteomyelitis of toe. -Per ID, d/c zosyn and Vanc, start IV Rocephin 2g daily 10/20- MRI results showing osteomyelitis of R 3rd toe discussed with Podiatry, Dr Granado. He advised pt would like amputation of the toe, pt to discuss further with her daughter. Stated he would add to surgical schedule in AM if needed. Remains medically stable without any symptoms Status post right third toe amputation and right second, fourth and fifth hammertoe correction on 10/21/2023 The foot remains bandaged and painful with movement Is getting physical therapy for recommendation on discharge Pain is reasonably controlled Awaiting reevaluation bed to [place] before being discharged likely today Wound of Left foot History of left foot surgery 6 years ago with nonhealing wound Continue wound care and dressing changes Lower extremity doppler showed the following: -Moderate atherosclerotic plaque within the bilateral lower extremities. No evidence for a hemodynamically definite stenosis. Continue Plavix and statin, pcp and outpt Vascular follow up Will continue current antibiotic Status post left foot first metatarsal osteotomy and gastroc tendon Achilles lengthening on left on 10/21/2023 Her left foot remains in bandage and painful with movement But the feet are bandaged-she can move the right toes but not the left Need to continue antibiotic for at least 10 to 14 days and will await recommendation from the record tabulating clerk Diabetes mellitus, type 2 Hgba1c of 7.7 this visit Lantus and NovoLog per protocol while hospitalized Hold home meds CAD (coronary artery disease) Appears stable, no reports of chest pain Continue statin, Plavix, beta-hyacinth No acute cardiac symptoms Paroxysmal atrial fibrillation Rate controlled on metoprolol Anticoagulated on Eliquis Rate remains controlled No acute issue Hypothyroidism Chronic, stable Continue levothyroxine Diet: DMII, HH DVT PROPHYLAXIS: On Eliquis CODE STATUS: Full code Dispo: PT/OT ordered, home with services. Awaiting PT OT recommendation Admission and Anticipated Discharge Date Admission Date: October 16, 2023 Subjective 10/21/2023 The patient was seen and examined in medical floor She will have right third toe amputation this afternoon Denies any fever and or chills and the pain is controlled 10/22/2023 The patient was seen and examined in medical floor she is status post right third toe amputation, left foot first metatarsal osteotomy and right second, fourth and fifth hammertoe correction and gastrocnemius and Achilles tendons limiting left She has been weak and drowsy today Has been getting pain medication Denies any fever and 10/23/2023 The patient was seen and examined in medical floor Complains to have pain in the feet No fever and or chills and no other significant symptoms 10/24/2023 The patient was seen and examined in medical floor She has been feeling much better and wants to go home He is walking with some difficulty but is still wants to go home No fever and or chills Awaiting reevaluation by Dr. Granado Review of Systems Review of Systems: All systems reviewed and are unremarkable except as noted below Physical Exam Physical Exam: Lying in bed without any acute distress Constitutional: well developed and well nourished; not ill appearing Eyes: PERRL, conjunctivae normal, anicteric sclerae ENMT: external ear and nose normal, oropharynx normal Neck: trachea midline, no thyromegaly Respiratory: no respiratory distress Auscultation: lungs clear to auscultation bilaterally Cardiovascular: Rate/Rhythm: regular rate and regular rhythm; not tachycardic Heart Sounds: normal S1 and normal S2; no murmur Extremities: + edema (Trace edema bilaterally) Gastrointestinal (Abdomen): Inspection/Auscultation: normal bowel sounds; abdomen not distended Percussion/Palpation: abdomen soft; abdomen nontender Neurologic: normal touch/pain/proprioception and moves all extremities; no focal motor deficits Lymphatic: no cervical or axillary lymphadenopathy Results & Data Results & Data Vital Signs (Past 12 Hours) Vital Signs Temp Pulse Resp BP Pulse Ox O2 Del Method 10/24/23 08:30 Room Air 10/24/23 07:17 36.7 C 77 16 102/57 L 94 Room Air Medications Administered Current Inpatient Medications Acetaminophen (Acetaminophen 325 Mg Tab) 650 mg PO Q4H PRN PRN Reason: pain/fever Stop: 11/15/23 23:06 Last Admin: 10/22/23 21:12 Dose: 650 mg Apixaban (Apixaban 5 Mg Tablet) 5 mg PO BID [facility] Stop: 11/15/23 23:06 Last Admin: 10/24/23 08:00 Dose: 5 mg Atorvastatin Calcium (Atorvastatin 40 Mg Tab) 40 mg PO QAM [facility] Stop: 11/16/23 08:59 Last Admin: 10/24/23 08:00 Dose: 40 mg Calcium Carbonate (Calcium Carbonate 1250mg Tab) 1,250 mg PO BID [facility] Stop: 11/17/23 20:59 Last Admin: 10/24/23 07:59 Dose: 1,250 mg Calcium Carbonate (Calcium Carbonate 500 Mg Chewable Tab) 500 mg PO DAILY PRN PRN Reason: Indigestion Stop: 11/22/23 19:32 Last Admin: 10/23/23 20:19 Dose: 500 mg Clopidogrel Bisulfate (Clopidogrel Bisulfate 75 Mg Tab) 75 mg PO DAILY [facility] Stop: 11/16/23 08:59 Last Admin: 10/24/23 07:59 Dose: 75 mg Cyanocobalamin (Cyanocobalamin (B-12) 500 Mcg Tablet) 1,000 mcg PO DAILY [facility] Stop: 11/16/23 08:59 Last Admin: 10/24/23 08:01 Dose: 1,000 mcg Dextrose (Dextrose 50% 50 Ml Syringe) 25 - 50 ml IV UD PRN; Protocol PRN Reason: Hypoglycemia Protocol Stop: 11/15/23 23:06 Fish Oil ([place]-3 (Purified Fish Oil) 1 Gm Cap) 1 gm PO BID [facility] Stop: 11/15/23 23:06 Last Admin: 10/24/23 09:12 Dose: 1 gm Gabapentin (Gabapentin 400 Mg Cap) 400 mg PO TID [facility] Stop: 11/15/23 23:06 Last Admin: 10/24/23 12:41 Dose: 400 mg Glucagon (Glucagon For Inj 1 Mg Vial) 1 mg SQ UD PRN; Protocol PRN Reason: Hypoglycemia Protocol Stop: 11/15/23 23:06 Glucose (Glucose 40% Gel 15 Gm Tube) 15 - 30 gm PO UD PRN; Protocol PRN Reason: Hypoglycemia Protocol Stop: 11/15/23 23:06 Glucose (Glucose 10 Tab/Tube) 4 - 8 tab PO UD PRN; Protocol PRN Reason: Hypoglycemia Treatment Stop: 11/15/23 23:06 Promethazine HCl 6.25 mg/ (Sodium Chloride) 50.25 mls @ 201 mls/hr IV Q6H PRN PRN Reason: Nausea And Vomiting Stop: 11/16/23 00:09 Last Infusion: 10/17/23 17:25 Dose: Infused Ceftriaxone Sodium 2,000 mg/ (Dextrose) 50 mls @ 100 mls/hr IV Q24H [facility]; Protocol Stop: 10/26/23 19:59 Last Infusion: 10/23/23 21:41 Dose: Infused Insulin Aspart (Insulin Aspart Per Unit Charge) 0 units SC 0730 [facility]; Protocol Stop: 11/21/23 07:59 Last Admin: 10/24/23 09:11 Dose: 10 units Insulin Aspart (Insulin Aspart Per Unit Charge) 0 units SC 1130,1630,2100 [facility]; Protocol Stop: 11/22/23 11:29 Last Admin: 10/24/23 12:40 Dose: 12 units Insulin Glargine (Lantus Per Unit Charge) 0 units SC BID [facility]; Protocol Stop: 11/21/23 20:59 Last Admin: 10/24/23 09:11 Dose: 10 units Lactobacillus Acidophilus (Advanced Probiotic 1250 Mg Capsule) 2 cap PO DAILY [facility] Stop: 11/16/23 08:59 Last Admin: 10/24/23 08:00 Dose: 2 cap Levothyroxine Sodium (Levothyroxine Sodium 75 Mcg Tablet) 75 mcg PO DAILYBB [facility] Stop: 11/16/23 06:29 Last Admin: 10/24/23 06:39 Dose: 75 mcg Loperamide HCl (Loperamide Hcl 2 Mg Cap) 2 mg PO Q6H PRN PRN Reason: Diarrhea Stop: 11/17/23 09:46 Last Admin: 10/22/23 21:13 Dose: 2 mg Melatonin (Melatonin 3 Mg Tab) 3 mg PO HS PRN PRN Reason: Sleep Stop: 11/18/23 01:32 Last Admin: 10/19/23 21:15 Dose: 3 mg Menthol (Cough Drop (Sugar Free) Augusto 24 Augusto/1 Box) 1 augusto BUCCAL PRN PRN PRN Reason: Cough/Sore Throat Stop: 11/17/23 06:28 Last Admin: 10/18/23 07:14 Dose: 1 augusto Metoprolol Succinate (Metoprolol Succ 50mg Ext Rel Tab) 50 mg PO QAM [facility] Stop: 11/16/23 08:59 Last Admin: 10/24/23 08:00 Dose: 50 mg Miscellaneous (Carbohydrates For Hypoglycemia ) 15 - 30 gm PO UD PRN PRN Reason: Hypoglycemia Protocol Stop: 11/15/23 23:06 Miscellaneous Information (Pharmacy Glycemic Mgmt Consult) 1 each N/A UD PRN PRN Reason: Consult Stop: 11/15/23 23:06 Pantoprazole Sodium (Pantoprazole 40 Mg Tab) 40 mg PO DAILY [facility] Stop: 11/16/23 08:59 Last Admin: 10/24/23 07:59 Dose: 40 mg Vitamin D (Cholecalciferol 1,000 Units 25 Mcg Tab) 1,000 units PO DAILY [facility] Stop: 11/16/23 08:59 Last Admin: 10/24/23 08:00 Dose: 1,000 units (3) Diabetes mellitus, type 2 Diabetes mellitus usp insulin use: unspecified 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
[2023-10-24 16:45] LABS: Appearance Urine Clear (Clear); Bilirubin Urine Negative (Negative); Blood Urine Negative (Negative); Color Urine Yellow; Glucose Urine UA Negative (Negative); Ketones Urine Negative (Negative); Leukocyte Esterase Urine Negative (Negative); Nitrite Urine Negative (Negative); Protein Urine Negative (Negative); Specific Gravity Urine 1.015 (1.000-1.030); Urobilinogen Urine Negative (Negative)
[2023-10-24] MEDS: cefTRIAXone SODIUM 2,000 MG in DEXTROSE 5 % MINI-B 50 ML IV SCH (21:00)
[2023-10-24] MEDS: ACETAMINOPHEN 325 MG TAB PO PRN (22:07)
[2023-10-25] MEDS: LEVOTHYROXINE SODIUM 75 MCG TABLET PO SCH (06:15)
[2023-10-25] MEDS: ATORVASTATIN 40 MG TAB PO SCH (08:01)
[2023-10-25] MEDS: CALCIUM CARBONATE 1250MG TAB PO SCH ×2 (08:01→20:26)
[2023-10-25] MEDS: ADVANCED PROBIOTIC 1250 MG CAPSULE PO SCH (08:02)
[2023-10-25] MEDS: CHOLECALCIFEROL 1,000 UNITS 25 MCG TAB PO SCH (08:02)
[2023-10-25] MEDS: METOPROLOL SUCC 50MG EXT REL TAB PO SCH (08:03)
[2023-10-25] MEDS: PANTOprazole 40 MG TAB PO SCH (08:03)
[2023-10-25] MEDS: CYANOCOBALAMIN (B-12) 500 MCG TABLET PO SCH (08:03)
[2023-10-25] MEDS: CLOPIDOGREL BISULFATE 75 MG TAB PO SCH (08:03)
[2023-10-25] MEDS: APIXABAN 5 MG TABLET PO SCH ×2 (08:04→20:25)
[2023-10-25] MEDS: OMEGA-3 (PURIFIED FISH OIL) 1 GM CAP PO SCH ×2 (08:04→20:25)
[2023-10-25] MEDS: GABAPENTIN 400 MG CAP PO SCH ×3 (08:04→20:24)
[2023-10-25] MEDS: INSULIN ASPART PER UNIT CHARGE SC SCH ×4 (08:13→20:35)
[2023-10-25] MEDS: LANTUS PER UNIT CHARGE SC SCH ×2 (08:13→20:34)
[2023-10-25] MEDS: LOPERAMIDE HCL 2 MG CAP PO PRN (11:28)
--- NOTE | 2023-10-25 12:24 | Orthopedic Progress Note ---
Date of Service October 25, 2023 Assessment & Plan (1) Diabetic infection of right foot: Plan: Patient status post day #4 right and left foot surgery (DOS: 10/21/23). Reviewed wound culture +Staph aureus sensitive to oxacillin, + P. mirabili. w/ no resistance Ok for discharge on Keflex per podiatry. Alternatively Bactrim but elevated BUN on 10/23. Dry, sterile dressing change with out incident. Patient partial weight bearing in off loading surgical shoe bilateral. Will continue to follow while in house. (2) Wound of foot: (3) Status post debridement: Admission and Anticipated Discharge Date Admission Date: October 16, 2023 Subjective Patient seen and examined in [id number]. Patient status post day #4 right third toe amputation, Left foot wound debridement (DOS:10/21/23) Patient has no complaints. Denies any fever and or chills and the pain is controlled Review of Systems Review of Systems: All systems reviewed & are unremarkable except as noted in Subjective Physical Exam Constitutional: well developed, well nourished, cooperative and comfortable Eyes: normal visual phillips by confrontation Neck: normal visual inspection and trachea midline Respiratory: normal respiratory effort and + respiratory distress Cardiovascular: Rate/Rhythm: regular rate and regular rhythm Vessels: posterior tibial pulses present and dorsalis pedis pulses present Musculoskeletal: Extremities: extremities normal to inspection and + amputation noted (Right third toe, Left second & third toe) Skin: + ulcer (Left foot sub met 1 DFU) and + wound (Right third toe amputation site sutures intact.) Neurologic: moves all extremities (Absent epicritic sensation to Right and Left foot) Psychiatric: Orientation: alert and oriented x 3 Results & Data Vital Signs (Past 12 Hours) Vital Signs Temp Pulse Resp BP Pulse Ox O2 Del Method 10/25/23 07:58 36.5 C 81 18 123/75 95 Room Air Diagnostic Findings [facility] [address] [place] [address] / Director: Maynor Larkin M.D. Clinical Laboratory Report Name: BROWN DONIS Bony Acct: [id number] [place]: [place] 1940 [facility] [place]: 10[place]16/23 Age: 83 Sex: F Dis Date: Loc: Medical/Surgical/Ortho [address] [place] [address]/Bed: [facility] Spec: [id number] Collected: 10/16/23-UNK Received: 10/16/[address]: Brinda Padilla Source: Toe,Right Third OV Order: Ordered: Surf Wnd Cul/Sm Procedure Result Verified Site Gram Stain Final 10/17/23 Gram Stain Result Rare Gram Positive Cocci No WBCs Seen Surface Wound Culture Final 10/19/23 Organism 1 Proteus mirabilis Quantity Moderate Sens Sensitivities to Follow Organism 2 Staphylococcus aureus Quantity Moderate Sens Sensitivities to Follow P mirabili S aureus RX M.I.C. RX M.I.C. --- --------- --- --------- Amox/Clav S <=8/4 Ampicillin S <=8 Amp/Sul S <=8/4 Cefazolin S <=2 Cefepime S <=2 Ceftriaxone S <=1 Ciprofloxacin S <=0.25 Clindamycin R >4 Daptomycin S 1 Ertapenem S <=0.5 Erythromycin R >4 Gentamicin S <=4 Levofloxacin S <=0.5 Meropenem S <=1 Oxacillin S 1 Tetracycline R >8 Tobramycin S <=4 Trimeth/Sulfa S <=2/38 S <=0.5/9.5 Pip/Tazo S <=16 Vancomycin S 2 S = SENSITIVE I = INTERMEDIATE R = RESISTANT Name: BROWN DONIS : 1940 PAGE 1 Printed: 10/25/23 1224 END OF REPORT
--- NOTE | 2023-10-25 12:34 | Hospitalist Progress Note ---
Date of Service October 25, 2023 Assessment & Plan (1) Open toe wound: (2) Wound of foot: (3) Diabetes mellitus, type 2: (4) CAD (coronary artery disease): (5) Paroxysmal atrial fibrillation: (6) Hypothyroidism: Plan 83yoF with PMHx significant for DMII, CAD s/p CABG, paroxysmal atrial fibrillation anticoagulated on Eliquis, hypothyroidism, history of MRSA, history of bacteremia, history of left foot surgery with nonhealing wound admitted with a right third toe wound. Diabetic foot wound Patient presenting from home with infection of right third toe. In the ED, afebrile, no leukocytosis, BP stable. reports of fevers on 10/17 No signs of osteomyelitis on x-ray on admission Case discussed with Podiatry Dr. Granado by admissions team- appreciate recs -no plans for surgical intervention on admission,no MRI-this was decided on admission and later on changed as below. -continue with IV antibiotics and wound care -wound debrided on 10/16, cultures of the left foot and right toe obtained Received a dose of Vanco in the ED, continue with Vanc and Zosyn and narrow based on culture results Follow wound cultures left foot wound Cx growing pansensitive Proteus and Staph right toe wound Cx growing pansensitive Proteus and Staph Blood Cx x1 growing Proteus ID consult placed for gram negative bacteremia- appreciate recs -Recommended obtaining an MRI of the R foot to r/o osteomyelitis- ordered by podiatry. -MRI R foot 10/19 confirmed osteomyelitis of toe. -Per ID, d/c zosyn and Vanc, start IV Rocephin 2g daily 10/20- MRI results showing osteomyelitis of R 3rd toe discussed with Podiatry, Dr Granado. He advised pt would like amputation of the toe, pt to discuss further with her daughter. Stated he would add to surgical schedule in AM if needed. Remains medically stable without any symptoms Status post right third toe amputation and right second, fourth and fifth hammertoe correction on 10/21/2023 The foot remains bandaged and painful with movement Is getting physical therapy for recommendation on discharge Pain is reasonably controlled Has been getting PT and OT Possible discharge tomorrow after being seen by the orthopedic surgeon and have an idea about antibiotic Wound of Left foot History of left foot surgery 6 years ago with nonhealing wound Continue wound care and dressing changes Lower extremity doppler showed the following: -Moderate atherosclerotic plaque within the bilateral lower extremities. No evidence for a hemodynamically definite stenosis. Continue Plavix and statin, pcp and outpt Vascular follow up Will continue current antibiotic Status post left foot first metatarsal osteotomy and gastroc tendon Achilles lengthening on left on 10/21/2023 Her left foot remains in bandage and painful with movement But the feet are bandaged-she can move the right toes but not the left Need to continue antibiotic for at least 10 to 14 days and will await recommendation from the numerical control router operator May need home health nurse to dress and also may need home PT prior to discharge Diabetes mellitus, type 2 Hgba1c of 7.7 this visit Lantus and NovoLog per protocol while hospitalized Hold home meds CAD (coronary artery disease) Appears stable, no reports of chest pain Continue statin, Plavix, beta-hyacinth No acute cardiac symptoms Paroxysmal atrial fibrillation Rate controlled on metoprolol Anticoagulated on Eliquis Rate remains controlled No acute issue Hypothyroidism Chronic, stable Continue levothyroxine Diet: DMII, HH DVT PROPHYLAXIS: On Eliquis CODE STATUS: Full code Dispo: PT/OT ordered, home with services. Awaiting PT OT recommendation and shelter case manager involvement Admission and Anticipated Discharge Date Admission Date: October 16, 2023 Subjective 10/21/2023 The patient was seen and examined in medical floor She will have right third toe amputation this afternoon Denies any fever and or chills and the pain is controlled 10/22/2023 The patient was seen and examined in medical floor she is status post right third toe amputation, left foot first metatarsal osteotomy and right second, fourth and fifth hammertoe correction and gastrocnemius and Achilles tendons limiting left She has been weak and drowsy today Has been getting pain medication Denies any fever and 10/23/2023 The patient was seen and examined in medical floor Complains to have pain in the feet No fever and or chills and no other significant symptoms 10/24/2023 The patient was seen and examined in medical floor She has been feeling much better and wants to go home He is walking with some difficulty but is still wants to go home No fever and or chills Awaiting reevaluation by Dr. Granado 10/25/2023 The patient was seen and examined in medical floor She has been complaining of bilateral foot pain but has been managing to move around with the help of walker No fever and or chills Awaiting further evaluation by the orthopedic surgeon prior to discharge likely tomorrow Review of Systems Review of Systems: All systems reviewed and are unremarkable except as noted below Physical Exam Physical Exam: Lying in bed without any acute distress Constitutional: well developed and well nourished; not ill appearing Eyes: PERRL, conjunctivae normal, anicteric sclerae ENMT: external ear and nose normal, oropharynx normal Neck: trachea midline, no thyromegaly Respiratory: no respiratory distress Auscultation: lungs clear to auscultation bilaterally Cardiovascular: Rate/Rhythm: regular rate and regular rhythm; not tachycardic Heart Sounds: normal S1 and normal S2; no murmur Extremities: + edema (Trace edema bilaterally) Gastrointestinal (Abdomen): Inspection/Auscultation: normal bowel sounds; abdomen not distended Percussion/Palpation: abdomen soft; abdomen nontender Neurologic: normal touch/pain/proprioception and moves all extremities; no focal motor deficits Lymphatic: no cervical or axillary lymphadenopathy Results & Data Results & Data Vital Signs (Past 12 Hours) Vital Signs Temp Pulse Resp BP Pulse Ox O2 Del Method 10/25/23 07:58 36.5 C 81 18 123/75 95 Room Air Laboratory Results Urine 10/24/23 Range/Units 16:30 Urine Color Yellow Urine Appearance Clear (Clear) Urine pH 6.0 (4.5-7.5) Ur Specific [place] 1.015 (1.000-1.030) Urine Protein Negative (Negative) Urine Glucose (UA) Negative (Negative) Medications Administered Current Inpatient Medications Acetaminophen (Acetaminophen 325 Mg Tab) 650 mg PO Q4H PRN PRN Reason: pain/fever Stop: 11/15/23 23:06 Last Admin: 10/24/23 22:07 Dose: 650 mg Apixaban (Apixaban 5 Mg Tablet) 5 mg PO BID [facility] Stop: 11/15/23 23:06 Last Admin: 10/25/23 08:04 Dose: 5 mg Atorvastatin Calcium (Atorvastatin 40 Mg Tab) 40 mg PO QAM [facility] Stop: 11/16/23 08:59 Last Admin: 10/25/23 08:01 Dose: 40 mg Calcium Carbonate (Calcium Carbonate 1250mg Tab) 1,250 mg PO BID [facility] Stop: 11/17/23 20:59 Last Admin: 10/25/23 08:01 Dose: 1,250 mg Calcium Carbonate (Calcium Carbonate 500 Mg Chewable Tab) 500 mg PO DAILY PRN PRN Reason: Indigestion Stop: 11/22/23 19:32 Last Admin: 10/23/23 20:19 Dose: 500 mg Clopidogrel Bisulfate (Clopidogrel Bisulfate 75 Mg Tab) 75 mg PO DAILY [facility] Stop: 11/16/23 08:59 Last Admin: 10/25/23 08:03 Dose: 75 mg Cyanocobalamin (Cyanocobalamin (B-12) 500 Mcg Tablet) 1,000 mcg PO DAILY [facility] Stop: 11/16/23 08:59 Last Admin: 10/25/23 08:03 Dose: 1,000 mcg Dextrose (Dextrose 50% 50 Ml Syringe) 25 - 50 ml IV UD PRN; Protocol PRN Reason: Hypoglycemia Protocol Stop: 11/15/23 23:06 Fish Oil (Amado-3 (Purified Fish Oil) 1 Gm Cap) 1 gm PO BID [facility] Stop: 11/15/23 23:06 Last Admin: 10/25/23 08:04 Dose: 1 gm Gabapentin (Gabapentin 400 Mg Cap) 400 mg PO TID [facility] Stop: 11/15/23 23:06 Last Admin: 10/25/23 08:04 Dose: 400 mg Glucagon (Glucagon For Inj 1 Mg Vial) 1 mg SQ UD PRN; Protocol PRN Reason: Hypoglycemia Protocol Stop: 11/15/23 23:06 Glucose (Glucose 40% Gel 15 Gm Tube) 15 - 30 gm PO UD PRN; Protocol PRN Reason: Hypoglycemia Protocol Stop: 11/15/23 23:06 Glucose (Glucose 10 Tab/Tube) 4 - 8 tab PO UD PRN; Protocol PRN Reason: Hypoglycemia Treatment Stop: 11/15/23 23:06 Promethazine HCl 6.25 mg/ (Sodium Chloride) 50.25 mls @ 201 mls/hr IV Q6H PRN PRN Reason: Nausea And Vomiting Stop: 11/16/23 00:09 Last Infusion: 10/17/23 17:25 Dose: Infused Ceftriaxone Sodium 2,000 mg/ (Dextrose) 50 mls @ 100 mls/hr IV Q24H [facility]; Protocol Stop: 10/26/23 19:59 Last Infusion: 10/24/23 21:30 Dose: Infused Insulin Aspart (Insulin Aspart Per Unit Charge) 0 units SC 0730 [facility]; Protocol Stop: 11/21/23 07:59 Last Admin: 10/25/23 08:13 Dose: 10 units Insulin Aspart (Insulin Aspart Per Unit Charge) 0 units SC 1130,1630,2100 [facility]; Protocol Stop: 11/22/23 11:29 Last Admin: 10/24/23 21:48 Dose: Not Given Insulin Glargine (Lantus Per Unit Charge) 0 units SC BID [facility]; Protocol Stop: 11/21/23 20:59 Last Admin: 10/25/23 08:13 Dose: 10 units Lactobacillus Acidophilus (Advanced Probiotic 1250 Mg Capsule) 2 cap PO DAILY [facility] Stop: 11/16/23 08:59 Last Admin: 10/25/23 08:02 Dose: 2 cap Levothyroxine Sodium (Levothyroxine Sodium 75 Mcg Tablet) [facility] Stop: 11/16/23 06:29 Last Admin: 10/25/23 06:15 Dose: 75 mcg Loperamide HCl (Loperamide Hcl 2 Mg Cap) 2 mg PO Q6H PRN PRN Reason: Diarrhea Stop: 11/17/23 09:46 Last Admin: 10/25/23 11:28 Dose: 2 mg Melatonin (Melatonin 3 Mg Tab) 3 mg PO HS PRN PRN Reason: Sleep Stop: 11/18/23 01:32 Last Admin: 10/19/23 21:15 Dose: 3 mg Menthol (Cough Drop (Sugar Free) Augusto 24 Augusto/1 Box) 1 augusto BUCCAL PRN PRN PRN Reason: Cough/Sore Throat Stop: 11/17/23 06:28 Last Admin: 10/18/23 07:14 Dose: 1 augusto Metoprolol Succinate (Metoprolol Succ 50mg Ext Rel Tab) 50 mg PO QAM [facility] Stop: 11/16/23 08:59 Last Admin: 10/25/23 08:03 Dose: 50 mg Miscellaneous (Carbohydrates For Hypoglycemia ) 15 - 30 gm PO UD PRN PRN Reason: Hypoglycemia Protocol Stop: 11/15/23 23:06 Miscellaneous Information (Pharmacy Glycemic Mgmt Consult) 1 each N/A UD PRN PRN Reason: Consult Stop: 11/15/23 23:06 Pantoprazole Sodium (Pantoprazole 40 Mg Tab) 40 mg PO DAILY [facility] Stop: 11/16/23 08:59 Last Admin: 10/25/23 08:03 Dose: 40 mg Vitamin D (Cholecalciferol 1,000 Units 25 Mcg Tab) 1,000 units PO DAILY [facility] Stop: 11/16/23 08:59 Last Admin: 10/25/23 08:02 Dose: 1,000 units (3) Diabetes mellitus, type 2 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
[2023-10-25] MEDS: cefTRIAXone SODIUM 2,000 MG in DEXTROSE 5 % MINI-B 50 ML IV SCH (19:32)
[2023-10-25] MEDS: ACETAMINOPHEN 325 MG TAB PO PRN (20:22)
[2023-10-26] MEDS: LEVOTHYROXINE SODIUM 75 MCG TABLET PO SCH (05:43)
[2023-10-26 07:32] LABS: BUN Creatinine Ratio 25.8 (10-20); Calcium 9.8 mg/dl (8.6-10.3); Creatinine Clr Calc Pharmacy 47.8 ml/min; Est GFR (African American) 66.3 ml/min; Est GFR (Non-African American) 57.2 ml/min; Potassium 4.3 mmol/L (3.5-5.1)
[2023-10-26 08:09] LABS: Basophils # (auto) 0.09 K/uL (0.00-0.20); Basophils % (auto) 1.3 %; Eosinophils # (auto) 0.18 K/uL (0.00-0.50); Eosinophils % (auto) 2.7 %; Hematocrit (blood only) 39.5 % (37.0-47.0); Hemoglobin 13.6 g/dl (12.0-16.0); Immature Granulocytes # (auto) 0.09 K/uL (0.01-0.20); Immature Granulocytes % (auto) 1.3 %; Lymphocytes # (auto) 1.79 K/uL (1.20-3.40); Lymphocytes % (auto) 26.6 %; Mean Corpuscular Hemoglobin 28.6 pg (25.0-34.0); Mean Corpuscular Hgb Conc 34.4 g/dL (32.0-36.0); Mean Platelet Volume 10.4 fL (9.4-12.4); Monocytes # (auto) 0.67 K/uL (0.11-0.59); Neutrophils # (auto) 3.91 K/uL (1.40-6.50); Neutrophils % (auto) 58.1 %; Platelet Count 285 K/uL (130-400); RDW Coefficient of Variation 15.5 % (11.5-14.5); RDW Standard Deviation 45.2 fL (36.4-46.3); Red Blood Count 4.76 M/uL (4.20-5.40); White Blood Count 6.73 K/ul (4.8-10.8)
[2023-10-26] MEDS: LOPERAMIDE HCL 2 MG CAP PO PRN (08:46)
[2023-10-26] MEDS: CLOPIDOGREL BISULFATE 75 MG TAB PO SCH (08:46)
[2023-10-26] MEDS: CHOLECALCIFEROL 1,000 UNITS 25 MCG TAB PO SCH (08:46)
[2023-10-26] MEDS: APIXABAN 5 MG TABLET PO SCH ×2 (08:46→19:44)
[2023-10-26] MEDS: CYANOCOBALAMIN (B-12) 500 MCG TABLET PO SCH (08:46)
[2023-10-26] MEDS: OMEGA-3 (PURIFIED FISH OIL) 1 GM CAP PO SCH ×2 (08:46→19:44)
[2023-10-26] MEDS: ATORVASTATIN 40 MG TAB PO SCH (08:46)
[2023-10-26] MEDS: METOPROLOL SUCC 50MG EXT REL TAB PO SCH (08:46)
[2023-10-26] MEDS: CALCIUM CARBONATE 1250MG TAB PO SCH ×2 (08:46→19:45)
[2023-10-26] MEDS: ADVANCED PROBIOTIC 1250 MG CAPSULE PO SCH (08:46)
[2023-10-26] MEDS: GABAPENTIN 400 MG CAP PO SCH ×3 (08:46→19:44)
[2023-10-26] MEDS: INSULIN ASPART PER UNIT CHARGE SC SCH ×4 (08:52→21:11)
[2023-10-26] MEDS: LANTUS PER UNIT CHARGE SC SCH (08:54)
[2023-10-26] MEDS: PANTOprazole 40 MG TAB PO SCH (10:53)
[2023-10-26] MEDS ORDERED: ONDANSETRON INJ 2 MG/ML 2 ML VIAL IV PRN (13:16)
--- NOTE | 2023-10-26 13:55 | Pharmacy Report ---
Pharmacy Glycemic Short Note 2 - Date of Service October 26, 2023 - Glycemic Short BSG Results (Last 24 hours): 10/25/23 10/25/23 10/26/23 16:49 20:29 06:40 Glucose 149 H POC Glucose 163 H 137 H 10/26/23 10/26/23 08:01 11:45 Glucose POC Glucose 146 H 166 H OUTPATIENT ANTIDIABETIC REGIMEN: * Tresiba 30 units SC BID * Ozempic 0.25 mg SC weekly on Mondays * HbA1c: 7.7% (10/17/23) ASSESSMENT: 10/26: * Grazyna received 51 units of insulin yesterday of which 20 were basal * Fasting BSG slightly above goal range yesterday and today will allow for increase in basal insulin by 10% * Patient tends to trend down as the day goes on, continue tight Novolog at breakfast and looser during the day. 10/23: * Consistent BSG trend noted yesterday of [id number], ranging 83-194 mg/dL * Tightened AM Novolog this morning, as lunchtime BSG almost always elevated * Lunch BSG elevated again today, but this is likely, in part, due to AM insulin not being given until ~1000 * CF loosened as to not overcorrect lunchtime BSG 10/22: * Patient received total of 7 units of insulin yesterday, of which 5 units were basal insulin (patient NPO for procedure) * Fasting BSG 127 mg/dL - Resumed 5 units basal again this morning, as unclear PO intake will be today. Patient eating breakfast and lunch - plan to add scale for basal insulin at HS time of 5-10 units. Appears patient previously stable on about ~20 units of basal/day so plan to titrate back up today 10/21: * BSGs [id number]/dL the last 24h. Received 20 units of basal and 24 units of bolus insulin yesterday. * NPO this AM for toe amputation. * Decreased basal by 50% given NPO status. Novolog q6 with 10/07 parameters until diet resumed. Background: * WHITNEY is an 83 year old female who presented to ED on 10/16 due to infection of right third toe * Pertinent PMH includes T2DM, history of nonhealing wounds, CAD, and Afib * Reasonable outpatient glycemic control based on HbA1c < 8% in patient > 80 years of age * Converting home basal to 50/50 basal/bolus split = basal 15 units BID and Novolog CF of 25 and carb ratio of 9 * Will ~aim for this with initial insulin dosing * Diet ordered, no plans for surgical intervention at this time PLAN FOR INPATIENT GLYCEMIC CONTROL: * Hold outpatient Tresiba (converted to Lantus inpatient) and Ozempic * Basal insulin * Lantus 12 units SC Daily * Lantus 5-10 units SC HS (see EHR for details) * Bolus insulin * NovoLog per scale ACHS or Q6hrs while NPO * Goal Range: Low 110 mg/dL - High 140 mg/dL * Correction Factor: 20 mg/dL/unit; Carb ratio of 1 unit per 5 grams CHO consumed at breakfast * Correction Factor: 30 mg/dL/unit; Carb ratio of 1 unit per 8 grams CHO consumed at lunch, dinner, and HS
--- NOTE | 2023-10-26 15:26 | Communication Note ---
Date of Service: October 26, 2023 I was asked to comment about further ABX for this patient. Per the EMR and the patient's hospitalist, this patient had a DFI due to Proteus and MSSA (that was c/b Proteus bacteremia). Before discontinuing ABX, please ensure that there is no concern for a residual infection. If there is surgical cure AND the patient has completed at least 10 days of appropriate ABX for the bacteremia/DFI, then I recommend to monitor off of ABX.
--- NOTE | 2023-10-26 19:02 | Hospitalist Progress Note ---
Date of Service October 26, 2023 Assessment & Plan (1) Open toe wound: (2) Wound of foot: (3) Diabetes mellitus, type 2: (4) CAD (coronary artery disease): (5) Paroxysmal atrial fibrillation: (6) Hypothyroidism: Plan 83yoF with PMHx significant for DMII, CAD s/p CABG, paroxysmal atrial fibrillation anticoagulated on Eliquis, hypothyroidism, history of MRSA, history of bacteremia, history of left foot surgery with nonhealing wound admitted with a right third toe wound. Diabetic foot wound Patient presenting from home with infection of right third toe. In the ED, afebrile, no leukocytosis, BP stable. reports of fevers on 10/17 No signs of osteomyelitis on x-ray on admission Case discussed with Podiatry Dr. Granado by admissions team- appreciate recs -no plans for surgical intervention on admission,no MRI-this was decided on admission and later on changed as below. -continue with IV antibiotics and wound care -wound debrided on 10/16, cultures of the left foot and right toe obtained Received a dose of Vanco in the ED, continue with Vanc and Zosyn and narrow based on culture results Follow wound cultures left foot wound Cx growing pansensitive Proteus and Staph right toe wound Cx growing pansensitive Proteus and Staph Blood Cx x1 growing Proteus ID consult placed for gram negative bacteremia- appreciate recs -Recommended obtaining an MRI of the R foot to r/o osteomyelitis- ordered by podiatry. -MRI R foot 10/19 confirmed osteomyelitis of toe. -Per ID, d/c zosyn and Vanc, start IV Rocephin 2g daily 10/20- MRI results showing osteomyelitis of R 3rd toe discussed with Podiatry, Dr Granado. He advised pt would like amputation of the toe, pt to discuss further with her daughter. Stated he would add to surgical schedule in AM if needed. Remains medically stable without any symptoms Status post right third toe amputation and right second, fourth and fifth hammertoe correction on 10/21/2023 The foot remains bandaged and painful with movement Is getting physical therapy for recommendation on discharge Pain is reasonably controlled Has been getting PT and OT Possible discharge tomorrow after being seen by the orthopedic surgeon and have an idea about antibiotic Discussed with the ID-does not require any more antibiotic We will observe without antibiotic Wound of Left foot History of left foot surgery 6 years ago with nonhealing wound Continue wound care and dressing changes Lower extremity doppler showed the following: -Moderate atherosclerotic plaque within the bilateral lower extremities. No evidence for a hemodynamically definite stenosis. Continue Plavix and statin, pcp and outpt Vascular follow up Will continue current antibiotic Status post left foot first metatarsal osteotomy and gastroc tendon Achilles lengthening on left on 10/21/2023 Her left foot remains in bandage and painful with movement But the feet are bandaged-she can move the right toes but not the left Need to continue antibiotic for at least 10 to 14 days and will await recommendation from the lining setter May need home health nurse to dress and also may need home PT prior to discharge Will need home health nurse to change dressing in the feet Discussed with Dr. Granado before discharge tomorrow Diabetes mellitus, type 2 Hgba1c of 7.7 this visit Lantus and NovoLog per protocol while hospitalized Hold home meds CAD (coronary artery disease) Appears stable, no reports of chest pain Continue statin, Plavix, beta-hyacinth No acute cardiac symptoms Paroxysmal atrial fibrillation Rate controlled on metoprolol Anticoagulated on Eliquis Rate remains controlled No acute issue Hypothyroidism Chronic, stable Continue levothyroxine Diet: DMII, HH DVT PROPHYLAXIS: On Eliquis CODE STATUS: Full code Dispo: PT/OT ordered, home with services. Awaiting PT OT recommendation and keycase assembler involvement Admission and Anticipated Discharge Date Admission Date: October 16, 2023 Subjective 10/21/2023 The patient was seen and examined in medical floor She will have right third toe amputation this afternoon Denies any fever and or chills and the pain is controlled 10/22/2023 The patient was seen and examined in medical floor she is status post right third toe amputation, left foot first metatarsal osteotomy and right second, fourth and fifth hammertoe correction and gastrocnemius and Achilles tendons limiting left She has been weak and drowsy today Has been getting pain medication Denies any fever and 10/23/2023 The patient was seen and examined in medical floor Complains to have pain in the feet No fever and or chills and no other significant symptoms 10/24/2023 The patient was seen and examined in medical floor She has been feeling much better and wants to go home He is walking with some difficulty but is still wants to go home No fever and or chills Awaiting reevaluation by Dr. Granado 10/25/2023 The patient was seen and examined in medical floor She has been complaining of bilateral foot pain but has been managing to move around with the help of walker No fever and or chills Awaiting further evaluation by the orthopedic surgeon prior to discharge likely tomorrow 10/26/2020 The patient was seen and examined in medical floor She has been feeling much better No fever and or chills Discussed with the ID Physical Exam Physical Exam: Lying in bed without any acute distress Constitutional: well developed and well nourished; not ill appearing Eyes: PERRL, conjunctivae normal, anicteric sclerae ENMT: external ear and nose normal, oropharynx normal Neck: trachea midline, no thyromegaly Respiratory: no respiratory distress Auscultation: lungs clear to auscultation bilaterally Cardiovascular: Rate/Rhythm: regular rate and regular rhythm; not tachycardic Heart Sounds: normal S1 and normal S2; no murmur Extremities: + edema (Trace edema bilaterally) Gastrointestinal (Abdomen): Inspection/Auscultation: normal bowel sounds; abdomen not distended Percussion/Palpation: abdomen soft; abdomen nontender Neurologic: normal touch/pain/proprioception and moves all extremities; no focal motor deficits Lymphatic: no cervical or axillary lymphadenopathy Results & Data Results & Data Vital Signs (Past 12 Hours) Vital Signs Temp Pulse Pulse Resp BP BP Pulse Ox 10/26/23 14:25 36.6 C 81 16 125/72 94 10/26/23 11:01 36.6 C 90 14 130/84 93 10/26/23 07:06 36.8 C 91 H 16 107/65 93 O2 Del Method 10/26/23 14:25 Room Air 10/26/23 11:01 Room Air 10/26/23 07:06 Room Air Laboratory Results Short CBC 10/26/23 Range/Units 06:40 WBC 6.73 (4.8-10.8) K/ul Hgb 13.6 (12.0-16.0) g/dl Hct 39.5 (37.0-47.0) % Plt Count 285 (130-400) K/uL [facility] 10/26/23 06:40 Sodium 138 Potassium 4.3 Chloride 106 Carbon Dioxide 23 BUN 24 H Creatinine 0.93 Glucose 149 H Calcium 9.8 Medications Administered Current Inpatient Medications Acetaminophen (Acetaminophen 325 Mg Tab) 650 mg PO Q4H PRN PRN Reason: pain/fever Stop: 11/15/23 23:06 Last Admin: 10/25/23 20:22 Dose: 650 mg Apixaban (Apixaban 5 Mg Tablet) 5 mg PO BID FRANKIE Stop: 11/15/23 23:06 Last Admin: 10/26/23 08:46 Dose: 5 mg Atorvastatin Calcium (Atorvastatin 40 Mg Tab) 40 mg PO QAM FRANKIE Stop: 11/16/23 08:59 Last Admin: 10/26/23 08:46 Dose: 40 mg Calcium Carbonate (Calcium Carbonate 1250mg Tab) 1,250 mg PO BID FRANKIE Stop: 11/17/23 20:59 Last Admin: 10/26/23 08:46 Dose: 1,250 mg Calcium Carbonate (Calcium Carbonate 500 Mg Chewable Tab) 500 mg PO DAILY PRN PRN Reason: Indigestion Stop: 11/22/23 19:32 Last Admin: 10/23/23 20:19 Dose: 500 mg Clopidogrel Bisulfate (Clopidogrel Bisulfate 75 Mg Tab) 75 mg PO DAILY [facility] Stop: 11/16/23 08:59 Last Admin: 10/26/23 08:46 Dose: 75 mg Cyanocobalamin (Cyanocobalamin (B-12) 500 Mcg Tablet) 1,000 mcg PO DAILY [facility] Stop: 11/16/23 08:59 Last Admin: 10/26/23 08:46 Dose: 1,000 mcg Dextrose (Dextrose 50% 50 Ml Syringe) 25 - 50 ml IV UD PRN; Protocol PRN Reason: Hypoglycemia Protocol Stop: 11/15/23 23:06 Fish Oil (Adams-3 (Purified Fish Oil) 1 Gm Cap) 1 gm PO BID FRANKIE Stop: 11/15/23 23:06 Last Admin: 10/26/23 08:46 Dose: 1 gm Gabapentin (Gabapentin 400 Mg Cap) 400 mg PO TID FRANKIE Stop: 11/15/23 23:06 Last Admin: 10/26/23 13:45 Dose: 400 mg Glucagon (Glucagon For Inj 1 Mg Vial) 1 mg SQ UD PRN; Protocol PRN Reason: Hypoglycemia Protocol Stop: 11/15/23 23:06 Glucose (Glucose 40% Gel 15 Gm Tube) 15 - 30 gm PO UD PRN; Protocol PRN Reason: Hypoglycemia Protocol Stop: 11/15/23 23:06 Glucose (Glucose 10 Tab/Tube) 4 - 8 tab PO UD PRN; Protocol PRN Reason: Hypoglycemia Treatment Stop: 11/15/23 23:06 Promethazine HCl 6.25 mg/ (Sodium Chloride) 50.25 mls @ 201 mls/hr IV Q6H PRN PRN Reason: Nausea And Vomiting Stop: 11/16/23 00:09 Last Infusion: 10/17/23 17:25 Dose: Infused Ceftriaxone Sodium 2,000 mg/ (Dextrose) 50 mls @ 100 mls/hr IV Q24H [facility]; Protocol Stop: 10/30/23 23:59 Last Infusion: 10/25/23 20:05 Dose: Infused Insulin Aspart (Insulin Aspart Per Unit Charge) 0 units SC 0730 [facility]; Protocol Stop: 11/21/23 07:59 Last Admin: 10/26/23 08:52 Dose: 10 units Insulin Aspart (Insulin Aspart Per Unit Charge) 0 units SC 1130,1630,2100 [facility]; Protocol Stop: 11/22/23 11:29 Last Admin: 10/26/23 17:41 Dose: 8 units Insulin Glargine (Lantus Per Unit Charge) 0 units SC HS [facility]; Protocol Stop: 11/25/23 20:59 Insulin Glargine (Lantus Per Unit Charge) [facility] Stop: 11/25/23 08:59 Last Admin: 10/26/23 08:54 Dose: 12 units Lactobacillus Acidophilus (Advanced Probiotic 1250 Mg Capsule) 2 cap PO DAILY [facility] Stop: 11/16/23 08:59 Last Admin: 10/26/23 08:46 Dose: 2 cap Levothyroxine Sodium (Levothyroxine Sodium 75 Mcg Tablet) [facility] Stop: 11/16/23 06:29 Last Admin: 10/26/23 05:43 Dose: 75 mcg Loperamide HCl (Loperamide Hcl 2 Mg Cap) 2 mg PO Q6H PRN PRN Reason: Diarrhea Stop: 11/17/23 09:46 Last Admin: 10/26/23 08:46 Dose: 2 mg Melatonin (Melatonin 3 Mg Tab) 3 mg PO HS PRN PRN Reason: Sleep Stop: 11/18/23 01:32 Last Admin: 10/19/23 21:15 Dose: 3 mg Menthol (Cough Drop (Sugar Free) Augusto 24 Augusto/1 Box) 1 augusto BUCCAL PRN PRN PRN Reason: Cough/Sore Throat Stop: 11/17/23 06:28 Last Admin: 10/18/23 07:14 Dose: 1 augusto Metoprolol Succinate (Metoprolol Succ 50mg Ext Rel Tab) 50 mg PO QAM [facility] Stop: 11/16/23 08:59 Last Admin: 10/26/23 08:46 Dose: 50 mg Miscellaneous (Carbohydrates For Hypoglycemia ) 15 - 30 gm PO UD PRN PRN Reason: Hypoglycemia Protocol Stop: 11/15/23 23:06 Miscellaneous Information (Pharmacy Glycemic Mgmt Consult) 1 each N/A UD PRN PRN Reason: Consult Stop: 11/15/23 23:06 Ondansetron HCl (Ondansetron Inj 2 Mg/Ml 2 Ml Vial) 4 mg IV Q6H PRN PRN Reason: Nausea And Vomiting Stop: 11/25/23 13:15 Last Admin: 10/26/23 13:37 Dose: 4 mg Pantoprazole Sodium (Pantoprazole 40 Mg Tab) 40 mg PO DAILY [facility] Stop: 11/16/23 08:59 Last Admin: 10/26/23 10:53 Dose: 40 mg Vitamin D (Cholecalciferol 1,000 Units 25 Mcg Tab) 1,000 units PO DAILY [facility] Stop: 11/16/23 08:59 Last Admin: 10/26/23 08:46 Dose: 1,000 units (3) Diabetes mellitus, type 2 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
[2023-10-26] MEDS: cefTRIAXone SODIUM 2,000 MG in DEXTROSE 5 % MINI-B 50 ML IV SCH (19:43)
[2023-10-26] MEDS ORDERED: LANTUS PER UNIT CHARGE SC SCH (21:00)
[2023-10-27] MEDS: LEVOTHYROXINE SODIUM 75 MCG TABLET PO SCH (05:09)
[2023-10-27] MEDS: CHOLECALCIFEROL 1,000 UNITS 25 MCG TAB PO SCH (07:28)
[2023-10-27] MEDS: APIXABAN 5 MG TABLET PO SCH (07:28)
[2023-10-27] MEDS: OMEGA-3 (PURIFIED FISH OIL) 1 GM CAP PO SCH (07:29)
[2023-10-27] MEDS: GABAPENTIN 400 MG CAP PO SCH ×2 (07:29→14:08)
[2023-10-27] MEDS: ADVANCED PROBIOTIC 1250 MG CAPSULE PO SCH (07:30)
[2023-10-27] MEDS: ATORVASTATIN 40 MG TAB PO SCH (07:30)
[2023-10-27] MEDS: CALCIUM CARBONATE 1250MG TAB PO SCH (07:30)
[2023-10-27] MEDS: CLOPIDOGREL BISULFATE 75 MG TAB PO SCH (07:31)
[2023-10-27] MEDS: CYANOCOBALAMIN (B-12) 500 MCG TABLET PO SCH (07:31)
[2023-10-27] MEDS: PANTOprazole 40 MG TAB PO SCH (07:32)
[2023-10-27] MEDS: METOPROLOL SUCC 50MG EXT REL TAB PO SCH (07:32)
[2023-10-27] MEDS: INSULIN ASPART PER UNIT CHARGE SC SCH ×2 (08:40→12:15)
[2023-10-27] MEDS: LANTUS PER UNIT CHARGE SC SCH (08:43)
--- NOTE | 2023-10-27 12:11 | Hospitalist Progress Note ---
Date of Service October 27, 2023 Assessment & Plan (1) Open toe wound: (2) Wound of foot: (3) Diabetes mellitus, type 2: (4) CAD (coronary artery disease): (5) Paroxysmal atrial fibrillation: (6) Hypothyroidism: Plan 83yoF with PMHx significant for DMII, CAD s/p CABG, paroxysmal atrial fibrillation anticoagulated on Eliquis, hypothyroidism, history of MRSA, history of bacteremia, history of left foot surgery with nonhealing wound admitted with a right third toe wound. Diabetic foot wound Patient presenting from home with infection of right third toe. In the ED, afebrile, no leukocytosis, BP stable. reports of fevers on 10/17 No signs of osteomyelitis on x-ray on admission Case discussed with Podiatry Dr. Granado by admissions team- appreciate recs -no plans for surgical intervention on admission,no MRI-this was decided on admission and later on changed as below. -continue with IV antibiotics and wound care -wound debrided on 10/16, cultures of the left foot and right toe obtained Received a dose of Vanco in the ED, continue with Vanc and Zosyn and narrow based on culture results Follow wound cultures left foot wound Cx growing pansensitive Proteus and Staph right toe wound Cx growing pansensitive Proteus and Staph Blood Cx x1 growing Proteus ID consult placed for gram negative bacteremia- appreciate recs -Recommended obtaining an MRI of the R foot to r/o osteomyelitis- ordered by podiatry. -MRI R foot 10/19 confirmed osteomyelitis of toe. -Per ID, d/c zosyn and Vanc, start IV Rocephin 2g daily 10/20- MRI results showing osteomyelitis of R 3rd toe discussed with Podiatry, Dr Granado. He advised pt would like amputation of the toe, pt to discuss further with her daughter. Stated he would add to surgical schedule in AM if needed. Remains medically stable without any symptoms Status post right third toe amputation and right second, fourth and fifth hammertoe correction on 10/21/2023 The foot remains bandaged and painful with movement Is getting physical therapy for recommendation on discharge Pain is reasonably controlled Has been getting PT and OT Possible discharge tomorrow after being seen by the orthopedic surgeon and have an idea about antibiotic Discussed with the ID-does not require any more antibiotic We will observe without antibiotic Has been feeling much better and remains stable to be discharged Wound of Left foot History of left foot surgery 6 years ago with nonhealing wound Continue wound care and dressing changes Lower extremity doppler showed the following: -Moderate atherosclerotic plaque within the bilateral lower extremities. No evidence for a hemodynamically definite stenosis. Continue Plavix and statin, pcp and outpt Vascular follow up Will continue current antibiotic Status post left foot first metatarsal osteotomy and gastroc tendon Achilles ynaick gthening on left on 10/21/2023 Her left foot remains in bandage and painful with movement But the feet are bandaged-she can move the right toes but not the left Need to continue antibiotic for at least 10 to 14 days and will await recommendation from the jitney driver May need home health nurse to dress and also may need home PT prior to discharge Will need home health nurse to change dressing in the feet Discussed with Dr. Granado before discharge tomorrow Has instructions about the dressings of the wound and will be done by home health nurse on discharge She will need to have appointment with Dr. Granado within 1 week Diabetes mellitus, type 2 Hgba1c of 7.7 this visit Lantus and NovoLog per protocol while hospitalized Hold home meds CAD (coronary artery disease) Appears stable, no reports of chest pain Continue statin, Plavix, beta-hyacinth No acute cardiac symptoms Paroxysmal atrial fibrillation Rate controlled on metoprolol Anticoagulated on Eliquis Rate remains controlled No acute issue Hypothyroidism Chronic, stable Continue levothyroxine Diet: DMII, HH DVT PROPHYLAXIS: On Eliquis CODE STATUS: Full code Dispo: PT/OT ordered, home with services. Awaiting PT OT recommendation and rehabilitation case coordinator involvement Will be discharged home this afternoon Admission and Anticipated Discharge Date Admission Date: October 16, 2023 Subjective 10/21/2023 The patient was seen and examined in medical floor She will have right third toe amputation this afternoon Denies any fever and or chills and the pain is controlled 10/22/2023 The patient was seen and examined in medical floor she is status post right third toe amputation, left foot first metatarsal osteotomy and right second, fourth and fifth hammertoe correction and gastrocnemius and Achilles tendons limiting left She has been weak and drowsy today Has been getting pain medication Denies any fever and 10/23/2023 The patient was seen and examined in medical floor Complains to have pain in the feet No fever and or chills and no other significant symptoms 10/24/2023 The patient was seen and examined in medical floor She has been feeling much better and wants to go home He is walking with some difficulty but is still wants to go home No fever and or chills Awaiting reevaluation by Dr. Granado 10/25/2023 The patient was seen and examined in medical floor She has been complaining of bilateral foot pain but has been managing to move around with the help of walker No fever and or chills Awaiting further evaluation by the orthopedic surgeon prior to discharge likely tomorrow 10/26/2023 The patient was seen and examined in medical floor She has been feeling much better No fever and or chills Discussed with the ID 10/27/2023 The patient was seen and examined in medical floor She has been stable without any symptoms Minimal pain in the feet No fever and or chills-she will be discharged home with home health this afternoon Review of Systems Review of Systems: All systems reviewed and are unremarkable except as noted below Physical Exam Physical Exam: Lying in bed without any acute distress Constitutional: well developed and well nourished; not ill appearing Eyes: PERRL, conjunctivae normal, anicteric sclerae ENMT: external ear and nose normal, oropharynx normal Neck: trachea midline, no thyromegaly Respiratory: no respiratory distress Auscultation: lungs clear to auscultation bilaterally Cardiovascular: Rate/Rhythm: regular rate and regular rhythm; not tachycardic Heart Sounds: normal S1 and normal S2; no murmur Extremities: + edema (Trace edema bilaterally) Gastrointestinal (Abdomen): Inspection/Auscultation: normal bowel sounds; abdomen not distended Percussion/Palpation: abdomen soft; abdomen nontender Neurologic: normal touch/pain/proprioception and moves all extremities; no focal motor deficits Lymphatic: no cervical or axillary lymphadenopathy Results & Data Results & Data Vital Signs (Past 12 Hours) Vital Signs Temp Pulse Resp BP Pulse Ox O2 Del Method 10/27/23 07:37 Room Air 10/27/23 07:17 36.9 C 95 H 16 108/68 94 Room Air Medications Administered Current Inpatient Medications Acetaminophen (Acetaminophen 325 Mg Tab) 650 mg PO Q4H PRN PRN Reason: pain/fever Stop: 11/15/23 23:06 Last Admin: 10/25/23 20:22 Dose: 650 mg Apixaban (Apixaban 5 Mg Tablet) 5 mg PO BID FRANKIE Stop: 11/15/23 23:06 Last Admin: 10/27/23 07:28 Dose: 5 mg Atorvastatin Calcium (Atorvastatin 40 Mg Tab) 40 mg PO QAM [facility] Stop: 11/16/23 08:59 Last Admin: 10/27/23 07:30 Dose: 40 mg Calcium Carbonate (Calcium Carbonate 1250mg Tab) 1,250 mg PO BID FRANKIE Stop: 11/17/23 20:59 Last Admin: 10/27/23 07:30 Dose: 1,250 mg Calcium Carbonate (Calcium Carbonate 500 Mg Chewable Tab) 500 mg PO DAILY PRN PRN Reason: Indigestion Stop: 11/22/23 19:32 Last Admin: 10/23/23 20:19 Dose: 500 mg Clopidogrel Bisulfate (Clopidogrel Bisulfate 75 Mg Tab) 75 mg PO DAILY [facility] Stop: 11/16/23 08:59 Last Admin: 10/27/23 07:31 Dose: 75 mg Cyanocobalamin (Cyanocobalamin (B-12) 500 Mcg Tablet) 1,000 mcg PO DAILY [facility] Stop: 11/16/23 08:59 Last Admin: 10/27/23 07:31 Dose: 1,000 mcg Dextrose (Dextrose 50% 50 Ml Syringe) 25 - 50 ml IV UD PRN; Protocol PRN Reason: Hypoglycemia Protocol Stop: 11/15/23 23:06 Fish Oil (Ralls-3 (Purified Fish Oil) 1 Gm Cap) 1 gm PO BID [facility] Stop: 11/15/23 23:06 Last Admin: 10/27/23 07:29 Dose: 1 gm Gabapentin (Gabapentin 400 Mg Cap) 400 mg PO TID FRANKIE Stop: 11/15/23 23:06 Last Admin: 10/27/23 07:29 Dose: 400 mg Glucagon (Glucagon For Inj 1 Mg Vial) 1 mg SQ UD PRN; Protocol PRN Reason: Hypoglycemia Protocol Stop: 11/15/23 23:06 Glucose (Glucose 40% Gel 15 Gm Tube) 15 - 30 gm PO UD PRN; Protocol PRN Reason: Hypoglycemia Protocol Stop: 11/15/23 23:06 Glucose (Glucose 10 Tab/Tube) 4 - 8 tab PO UD PRN; Protocol PRN Reason: Hypoglycemia Treatment Stop: 11/15/23 23:06 Promethazine HCl 6.25 mg/ (Sodium Chloride) 50.25 mls @ 201 mls/hr IV Q6H PRN PRN Reason: Nausea And Vomiting Stop: 11/16/23 00:09 Last Infusion: 10/17/23 17:25 Dose: Infused Ceftriaxone Sodium 2,000 mg/ (Dextrose) 50 mls @ 100 mls/hr IV Q24H [facility]; Protocol Stop: 10/30/23 23:59 Last Infusion: 10/26/23 20:22 Dose: Infused Insulin Aspart (Insulin Aspart Per Unit Charge) 0 units SC 0730 [facility]; Protocol Stop: 11/21/23 07:59 Last Admin: 10/27/23 08:40 Dose: 9 units Insulin Aspart (Insulin Aspart Per Unit Charge) 0 units SC 1130,1630,2100 [facility]; Protocol Stop: 11/22/23 11:29 Last Admin: 10/26/23 21:11 Dose: 3 units Insulin Glargine (Lantus Per Unit Charge) 12 units SC QAM [facility] Stop: 11/25/23 08:59 Last Admin: 10/27/23 08:43 Dose: 12 units Insulin Glargine (Lantus Per Unit Charge) 10 units SC HS [facility] Stop: 11/26/23 20:59 Lactobacillus Acidophilus (Advanced Probiotic 1250 Mg Capsule) 2 cap PO DAILY [facility] Stop: 11/16/23 08:59 Last Admin: 10/27/23 07:30 Dose: 2 cap Levothyroxine Sodium (Levothyroxine Sodium 75 Mcg Tablet) [facility] Stop: 11/16/23 06:29 Last Admin: 10/27/23 05:09 Dose: 75 mcg Loperamide HCl (Loperamide Hcl 2 Mg Cap) 2 mg PO Q6H PRN PRN Reason: Diarrhea Stop: 11/17/23 09:46 Last Admin: 10/26/23 08:46 Dose: 2 mg Melatonin (Melatonin 3 Mg Tab) 3 mg PO HS PRN PRN Reason: Sleep Stop: 11/18/23 01:32 Last Admin: 10/19/23 21:15 Dose: 3 mg Menthol (Cough Drop (Sugar Free) Ruth 24 Ruth/1 Box) 1 ruth BUCCAL PRN PRN PRN Reason: Cough/Sore Throat Stop: 11/17/23 06:28 Last Admin: 10/18/23 07:14 Dose: 1 ruht Metoprolol Succinate (Metoprolol Succ 50mg Ext Rel Tab) 50 mg PO QA [facility] Stop: 11/16/23 08:59 Last Admin: 10/27/23 07:32 Dose: 50 mg Miscellaneous (Carbohydrates For Hypoglycemia ) 15 - 30 gm PO UD PRN PRN Reason: Hypoglycemia Protocol Stop: 11/15/23 23:06 Miscellaneous Information (Pharmacy Glycemic Mgmt Consult) 1 each N/A UD PRN PRN Reason: Consult Stop: 11/15/23 23:06 Ondansetron HCl (Ondansetron Inj 2 Mg/Ml 2 Ml Vial) 4 mg IV Q6H PRN PRN Reason: Nausea And Vomiting Stop: 11/25/23 13:15 Last Admin: 10/26/23 13:37 Dose: 4 mg Pantoprazole Sodium (Pantoprazole 40 Mg Tab) 40 mg PO DAILY [facility] Stop: 11/16/23 08:59 Last Admin: 10/27/23 07:32 Dose: 40 mg Vitamin D (Cholecalciferol 1,000 Units 25 Mcg Tab) 1,000 units PO DAILY [facility] Stop: 11/16/23 08:59 Last Admin: 10/27/23 07:28 Dose: 1,000 units (3) Diabetes mellitus, type 2 Diabetes mellitus care home insulin use: unspecified care home insulin use status Diabetes mellitus complication status: with skin complications Diabetes mellitus complication detail: with other skin ulcer Qualified Code(s): E11.622 - Type 2 diabetes mellitus with other skin ulcer; L98.499 - Non-pressure chronic ulcer of skin of other sites with unspecified severity
[2023-10-27] MEDS ORDERED: LANTUS PER UNIT CHARGE SC SCH (21:00)
--- NOTE | 2023-10-28 09:28 | Discharge Summary ---
Date of Service October 28, 2023 Admission HPI Per Admitting Provider 83-year-old female with PMH IDDM, CAD s/p CABG, paroxysmal atrial fibrillation anticoagulated on Eliquis, hypothyroidism, history of MRSA, history of bacteremia, history of left foot surgery with nonhealing wound, and other problems listed below who presents to the ED for evaluation of right third toe wound. History obtained from the patient and review of inpatient records from 2018. Patient reports she developed pain in her right third toe a few days ago and the toe started to become red and blackened on the end. She reports having chills and running a fever today. There has been some drainage from the right third toe. Patient has a chronic wound on her left foot from a prior surgery 6 years ago. Patient denies chest pain or shortness of breath. No lightheadedness, dizziness, diaphoresis, syncopal events. She denies abdominal pain, nausea, vomiting, diarrhea. No urinary symptoms. In the ED, patient is hemodynamically stable. She was evaluated by podiatry in the ED who is not recommending surgery at this time. Labs are unremarkable. Patient was given IVF and IV Vanco. Admission Exam Per Admitting Provider Vitals signs as noted above General Appearance:Obese, no apparent distress Head: normocephalic, Atraumatic Eyes: normal inspection, EOMI Neck: supple, Trachea midline Respiratory/Chest: Normal breath sounds, CTA, No accessory muscle use Cardiovascular: S1, S2, No murmur Abdomen/GI:Soft, Non tender, Bowel sounds present Extremities/Musculoskeletal:normal inspection, Trace pedal edema, + left foot, right middle toe dressing Neurologic/Psych:AAOX3, grossly no focal neurological deficits Skin: normal color, warm Principal Diagnosis Diabetic foot wound bilateral, right third toe osteomyelitis ,status post amputation of right third toe, paroxysmal atrial fibrillation, stable CAD Discharge Exam Lying in bed without any acute distress Constitutional well developed and well nourished; not ill appearing Eyes PERRL, conjunctivae normal, anicteric sclerae ENMT external ear and nose normal, oropharynx normal Neck trachea midline, no thyromegaly Respiratory no respiratory distress Auscultation: lungs clear to auscultation bilaterally Cardiovascular Rate/Rhythm: regular rate and regular rhythm; not tachycardic Heart Sounds: normal S1 and normal S2; no murmur Extremities: + edema (Trace edema bilaterally) Gastrointestinal (Abdomen) Inspection/Auscultation: normal bowel sounds; abdomen not distended Percussion/Palpation: abdomen soft; abdomen nontender Neurologic normal touch/pain/proprioception and moves all extremities; no focal motor deficits Lymphatic no cervical or axillary lymphadenopathy Discharge Data Allergies Allergy/AdvReac Type Severity Reaction Status Date / Time metformin AdvReac Severe Diarrhea Unverified 10/16/23 17:47 Consultations 10/16/23 17:35 ED Decision to Admit Stat 10/16/23 23:07 Consult Podiatry Routine 10/17/23 17:34 Consult Infectious Diseases Routine Procedures Performed Operation Date: 10/21/23 07:00 Actual Procedures p Right 3rd Toe Amputation, Left foot first metatarsal osteotomy, (Bilateral) - Imer Granado DPM, MS s Right Second, forth and fifth hammertoe correction(Right) - Imer Granado DPM, MS s Gastroctendon Achillies lenghtening left(Left) - Imer Granado DPM, MS Ordered Studies 10/16/23 18:18 US arterial duplex LE BI Routine 10/19/23 14:02 MRI Foot [MR foot RT wo/w con] Routine Hospital Course (1) Open toe wound: (2) Wound of foot: (3) Diabetes mellitus, type 2: (4) CAD (coronary artery disease): (5) Paroxysmal atrial fibrillation: (6) Hypothyroidism: Plan 83yoF with PMHx significant for DMII, CAD s/p CABG, paroxysmal atrial fibrillation anticoagulated on Eliquis, hypothyroidism, history of MRSA, history of bacteremia, history of left foot surgery with nonhealing wound admitted with a right third toe wound. Diabetic foot wound Patient presenting from home with infection of right third toe. In the ED, afebrile, no leukocytosis, BP stable. reports of fevers on 10/17 No signs of osteomyelitis on x-ray on admission Case discussed with Podiatry Dr. Granado by admissions team- appreciate recs -no plans for surgical intervention on admission,no MRI-this was decided on admission and later on changed as below. -continue with IV antibiotics and wound care -wound debrided on 10/16, cultures of the left foot and right toe obtained Received a dose of Vanco in the ED, continue with Vanc and Zosyn and narrow based on culture results Follow wound cultures left foot wound Cx growing pansensitive Proteus and Staph right toe wound Cx growing pansensitive Proteus and Staph Blood Cx x1 growing Proteus ID consult placed for gram negative bacteremia- appreciate recs -Recommended obtaining an MRI of the R foot to r/o osteomyelitis- ordered by podiatry. -MRI R foot 10/19 confirmed osteomyelitis of toe. -Per ID, d/c zosyn and Vanc, start IV Rocephin 2g daily 10/20- MRI results showing osteomyelitis of R 3rd toe discussed with Podiatry, Dr Granado. He advised pt would like amputation of the toe, pt to discuss further with her daughter. Stated he would add to surgical schedule in AM if needed. Remains medically stable without any symptoms Status post right third toe amputation and right second, fourth and fifth hammertoe correction on 10/21/2023 The foot remains bandaged and painful with movement Is getting physical therapy for recommendation on discharge Pain is reasonably controlled Has been getting PT and OT Possible discharge tomorrow after being seen by the orthopedic surgeon and have an idea about antibiotic Discussed with the ID-does not require any more antibiotic We will observe without antibiotic Has been feeling much better and remains stable to be discharged Wound of Left foot History of left foot surgery 6 years ago with nonhealing wound Continue wound care and dressing changes Lower extremity doppler showed the following: -Moderate atherosclerotic plaque within the bilateral lower extremities. No evidence for a hemodynamically definite stenosis. Continue Plavix and statin, pcp and outpt Vascular follow up Will continue current antibiotic Status post left foot first metatarsal osteotomy and gastroc tendon Achilles lengthening on left on 10/21/2023 Her left foot remains in bandage and painful with movement But the feet are bandaged-she can move the right toes but not the left Need to continue antibiotic for at least 10 to 14 days and will await recommendation from the screw eye assembler May need home health nurse to dress and also may need home PT prior to discharge Will need home health nurse to change dressing in the feet Discussed with Dr. Granado before discharge tomorrow Has instructions about the dressings of the wound and will be done by home health nurse on discharge She will need to have appointment with Dr. Granado within 1 week Diabetes mellitus, type 2 Hgba1c of 7.7 this visit Lantus and NovoLog per protocol while hospitalized Hold home meds CAD (coronary artery disease) Appears stable, no reports of chest pain Continue statin, Plavix, beta-hyacinth No acute cardiac symptoms Paroxysmal atrial fibrillation Rate controlled on metoprolol Anticoagulated on Eliquis Rate remains controlled No acute issue Hypothyroidism Chronic, stable Continue levothyroxine Diet: DMII, HH DVT PROPHYLAXIS: On Eliquis CODE STATUS: Full code Dispo: PT/OT ordered, home with services. Awaiting PT OT recommendation and telehealth case manager involvement Will be discharged home this afternoon Total Time Total Time Spent Total Time Spent (In Minutes): 35 minutes Discharge Plan Discharge Items Patient Disposition: Home - Home Health Services Reason For Visit: DIABETIC FOOT WOUND Discharge Diagnosis: Diabetic foot wound bilateral, right third toe osteomyelitis ,status post amputation of right third toe, paroxysmal atrial fibrillation, stable CAD Condition on Discharge: Fair Activity: As commented below Activity Comment: Use walker with ambulation and continue with the home PT Non-emergency contact: Primary Care Provider Call non-emergency contact if: you have any medication questions and your symptoms worsen Follow-up/Referrals: Moise Reed, [Primary Care Provider] - (Please make an appointment with your primary care physician within 7 days) Diet: Carb Consistent or DM2 Addtl Attending Provider Instructions: Please take precautions to avoid falls Continue to dress the bilateral foot wounds as advised by the orthopedic surgeon Keep appointment with the orthopedic surgeon as advised Take your medications regularly Pending Studies at Discharge: No Stand-Alone Forms: [employer], Smoking Cessation Medications and DC Order Prescriptions: Continued levothyroxine 75 mcg Tablet 75 mcg PO QAM atorvastatin 40 mg Tablet 40 mg PO QAM potassium gluconate 595 mg (99 mg) Tablet Extended Release 650 mg PO QDD Rx Instructions: Per family, the patient has 650mg listed on her medication list. Eliquis 5 mg Tablet 5 mg PO BID acetaminophen 500 mg Tablet 500 mg PO QID PRN (Reason: Pain) clopidogrel [Plavix] 75 mg tablet 75 mg PO DAILY Qty: 30 0RF multivitamin Tablet 1 tab PO DAILY metoprolol succinate 50 mg tablet extended release 24 hr 50 mg PO QAM cyanocobalamin (vitamin B-12) [Vitamin B-12] 1,000 mcg Tablet 1,000 mcg PO DAILY calcium carbonate [Calcium 600] 600 mg calcium (1,500 mg) Tablet 600 mg PO DAILY gabapentin 800 mg tablet 800 mg PO TID pantoprazole 40 mg tablet,delayed release (DR/EC) 40 mg PO DAILY omega [id number] oil [Fish Oil] 1,200 (144-216) mg Capsule 1 cap PO BID cholecalciferol (vitamin D3) [Vitamin D3] 25 mcg (1,000 unit) Tablet,Chewable 25 mcg PO DAILY Probiotic 3 billion cell Capsule 3,000 mmu cells PO BID Rx Instructions: administer with a meal insulin degludec [Tresiba FlexTouch U-200] 200 unit/mL (3 mL) insulin pen 30 unit subcut BID Ozempic 0.25 mg or 0.5 mg (2 mg/3 mL) pen injector 0.25 mg SUBCUT WK Rx Instructions: Thursday Discharge Orders: Discharge Order (Routine); Ordered 10/27/23 Ordered By: Leni Ledezma/Other Patient Handouts: Nutrition for Wound Healing, Managing Type 2 Diabetes Admission Data Admit Date/Time: 10/16/23 18:05 Attending Provider: Leni Sams Admit Provider: Joby Olson Primary Care Provider: Moise Reed Other Providers: Joby Olson; Imer Granado; Drake Gamez; Marj Botello; Anibal Lay I.; Deniz Easley II; Ramila Horn; Hayder Nuñez; Luis Roa; Amy Mcgovern Other Interventions: Discharge Summary Assessment (RN) Last Done: 10/27/23 13:32
== END 2023-10-27 15:25 | disposition home health service (06) | DRG 617 ==
LOC: ED 14:08 → 3W 18:05 → SUATTDRO 18:05 → 3W 22:24